=== PATIENT | female | born 1985 | race Caucasian/White ===

== ENCOUNTER 2019-04-22 08:17 | Emergency (ER) | payer OTHER ==
[~2019-04-22] VITALS: Ht 162.6 cm; Wt 52.2 kg
[2019-04-22] MEDS ORDERED: VNL75T (08:35)
[2019-04-22] MEDS ORDERED: DEXT20TA8 (08:35)
[2019-04-22] MEDS ORDERED: LACTATED RINGERS 1,000 ML IV ONE ×2 (08:44→09:42)
[2019-04-22] MEDS ORDERED: FAMOTIDINE 20MG/2ML IV (PEPCID) IVP ONE (08:45)
[2019-04-22] MEDS ORDERED: ONDANSETRON 4 MG/2 ML (SDV) Z0FRAN IVP ONE (08:45)
[2019-04-22 08:58] LABS: BASOPHILS % (AUTO) 0 % (0-10); EOSINOPHILS % (AUTO) 0 % (0-10); HEMATOCRIT 40 % (35-52); HEMOGLOBIN 13.4 G/DL (11.5-16.0); LYMPHOCYTES # (AUTO) 1.3 X 10^3 (1.0-4.0); LYMPHOCYTES % (AUTO) 27 % (12-44); MEAN CORPUSCULAR HEMOGLOBIN 31 PG (25-34); MEAN CORPUSCULAR HGB CONC 34 G/DL (32-36); MEAN CORPUSCULAR VOLUME 91 FL (80-99); MEAN PLATELET VOLUME 9.7 FL (7.4-10.4); MONOCYTES # (AUTO) 0.5 X 10^3 (0.0-1.0); MONOCYTES % (AUTO) 9 % (0-12); NEUTROPHILS # (AUTO) 3.2 X 10^3 (1.8-7.8); NEUTROPHILS % (AUTO) 64 % (42-75); PLATELET COUNT 356 10^3/uL (130-400); RED CELL DISTRIBUTION WIDTH 14.9 % (10.0-14.5)
--- NOTE | 2019-04-22 09:05 | ED Psychosocial ---
General Chief Complaint: Substance Abuse Stated Complaint: INTOXICATED, VOMITTING Nursing Triage Note: ARRIVED VIA AMB TO ROOM 06. STATES SHE AND HER BOYFRIEND HAVE BEEN [facility] SCH[facility] FOR A MONTH AND THINKS SHE MIGHT HAVE ALCOHOL POSIONING. THINKS SHE IS DEHYDRATED AND JUST DOES NOT FEEL RIGHT. WANTS DETOXED BUT NOT IN PLACEMENT. Source: patient, other (boyfriend) Exam Limitations: no limitations History of Present Illness Date Seen by Provider: Apr 22, 2019 Time Seen by Provider: 08:38 Initial Comments This 34-year-old woman presents to the emergency room along with her boyfriend with complaints related to alcohol consumption. Her primary complaint today is that she "feels foggy". She just "doesn't feel right". She has been drinking alcohol heavily on a daily basis for about one year. She states she and her boyfriend usually share one to 2 L of hard alcohol per day. Her last alcohol consumption was about 2 hours prior to arrival. She has some nausea but denies vomiting. She denies any pain at this time. Her most recent primary care provider was Gonzalo Skinner in [place], [place]. She denies any other substance abuse. She thinks she might be dehydrated. She is tachycardic on assessment. Allergies and Home Medications Allergies Coded Allergies: No Known Drug Allergies (Unverified , 04/22/19) Home Medications Lorazepam 1 Mg Tablet, 1 MG PO Q8H PRN for AGITATION Prescribed by: ELIE SHERIFF on 04/22/19 1140 Patient Home Medication List Home Medication List Reviewed: Yes Review of Systems Constitutional: no symptoms reported EENTM: no symptoms reported Respiratory: no symptoms reported Cardiovascular: see HPI Gastrointestinal: see HPI Genitourinary: no symptoms reported : No LMP: Apr 08, 2019 Control/STD Prophylaxis: None Musculoskeletal: no symptoms reported Skin: no symptoms reported Psychiatric/Neurological: See HPI Past [id number] Hx Past Med/Social Hx: Reviewed and Corrections made Patient Social History Alcohol Use: Regular Use Alcohol Beverage of Choice: Whiskey Recreational Drug Use: No Smoking Status: Current Everyday Smoker Recent Foreign Travel: No Contact w/Someone Who Travel: No Recent Infectious Disease Expo: No Recent Hopitalizations: No Past Medical History Surgeries: Yes (REVERSAL OF TUBAL) Tubal Ligation Respiratory: No Cardiac: No Neurological: No Genitourinary: No Gastrointestinal: No Musculoskeletal: No Endocrine: No HEENT: No Cancer: No Psychosocial: Yes (alcoholism) Depression Integumentary: No Physical Exam Vital Signs - First Documented 04/22/19 08:23 Temp 98.4 Pulse 138 Resp 16 B/P (MAP) 136/113 (121) Pulse Ox 99 O2 Delivery Room Air Capillary Refill : Less Than 3 Seconds Height, Weight, BMI Height: 5'4.00" Weight: 115lbs. oz. 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, no motor/sensory deficits, alert, oriented x 3, other (mildly anxious) Appearance/Memory: appropriate appearance, appropriate insight Behavior/Eye Contact: cooperative, good eye contact, normal speech Thoughts/Hallucinations: normal thought pattern Skin: normal color, warm/dry Progress/Results/Core Measures Results/Orders Lab Results Laboratory Tests Test 04/22/19 08:44 04/22/19 08:50 04/22/19 10:35 Range/Units Urine Color YELLOW Urine Clarity CLEAR Urine pH 7 5-9 Urine Specific [place] 1.015 L 1.016-1.022 Urine Protein NEGATIVE NEGATIVE Urine Glucose (UA) NEGATIVE NEGATIVE Urine Ketones 2+ H NEGATIVE Urine Nitrite NEGATIVE NEGATIVE Urine Bilirubin NEGATIVE NEGATIVE Urine Urobilinogen NORMAL NORMAL MG/DL Urine Leukocyte Esterase 1+ H NEGATIVE Urine RBC (Auto) NEGATIVE NEGATIVE Urine RBC NONE /HPF Urine WBC RARE /HPF Urine Squamous Epithelial Cells 2-5 /HPF Urine Crystals NONE /LPF Urine Bacteria FEW H /HPF Urine Casts NONE /LPF Urine Mucus NEGATIVE /LPF Urine Culture Indicated NO White Blood Count 5.0 4.3-11.0 10^3/uL Red Blood Count 4.34 L 4.35-5.85 10^6/uL Hemoglobin 13.4 11.5-16.0 G/DL Hematocrit 40 35-52 % Mean Corpuscular Volume 91 80-99 FL Mean Corpuscular Hemoglobin 31 25-34 PG Mean Corpuscular Hemoglobin Concent 34 32-36 G/DL Red Cell Distribution Width 14.9 H 10.0-14.5 % Platelet Count 356 130-400 10^3/uL Mean Platelet Volume 9.7 7.4-10.4 FL Neutrophils (%) (Auto) 64 42-75 % Lymphocytes (%) (Auto) 27 12-44 % Monocytes (%) (Auto) 9 0-12 % Eosinophils (%) (Auto) 0 0-10 % Basophils (%) (Auto) 0 0-10 % Neutrophils # (Auto) 3.2 1.8-7.8 X 10^3 Lymphocytes # (Auto) 1.3 1.0-4.0 X 10^3 Monocytes # (Auto) 0.5 0.0-1.0 X 10^3 Eosinophils # (Auto) 0.0 0.0-0.3 10^3/uL Basophils # (Auto) 0.0 0.0-0.1 10^3/uL Sodium Level 141 135-145 MMOL/L Potassium Level 3.8 3.6-5.0 MMOL/L Chloride Level 103 98-107 MMOL/L Carbon Dioxide Level 20 L 21-32 MMOL/L Anion Gap 18 H 5-14 MMOL/L Blood Urea Nitrogen 6 L 7-18 MG/DL Creatinine 0.77 0.60-1.30 MG/DL Estimat Glomerular Filtration Rate > 60 BUN/Creatinine Ratio 8 Glucose Level 99 70-105 MG/DL Calcium Level 9.1 8.5-10.1 MG/DL Corrected Calcium 8.8 8.5-10.1 MG/DL Magnesium Level 2.2 1.8-2.4 MG/DL Total Bilirubin 0.4 0.1-1.0 MG/DL Aspartate Amino Transf (AST/SGOT) 74 H 5-34 U/L Alanine Aminotransferase (ALT/SGPT) 27 0-55 U/L Alkaline Phosphatase 129 40-136 U/L Total Protein 8.1 6.4-8.2 GM/DL Albumin 4.4 3.2-4.5 GM/DL Lipase 26 8-78 U/L TSH [place] Testing 1.19 0.35-4.94 UIU/ML Serum Test, Qualitative NEGATIVE NEGATIVE Serum Alcohol 190 H <10 MG/DL Urine Opiates Screen NEGATIVE NEGATIVE Urine Oxycodone Screen NEGATIVE NEGATIVE Urine Methadone Screen NEGATIVE NEGATIVE Urine Propoxyphene Screen NEGATIVE NEGATIVE Urine Barbiturates Screen NEGATIVE NEGATIVE Ur Tricyclic Antidepressants Screen NEGATIVE NEGATIVE Urine Phencyclidine Screen NEGATIVE NEGATIVE Urine Amphetamines Screen NEGATIVE NEGATIVE Urine Methamphetamines Screen NEGATIVE NEGATIVE Urine Benzodiazepines Screen NEGATIVE NEGATIVE Urine Cocaine Screen NEGATIVE NEGATIVE Urine Cannabinoids Screen NEGATIVE NEGATIVE My Orders Orders - ELIE NAGEL MD Ed Iv/Invasive Line Start (04/22/19 08:44) Lactated Ringers (Lr 1000 Ml Iv Solution (04/22/19 08:44) Ondansetron Injection (Zofran Injectio (04/22/19 08:45) Famotidine Injection (Pepcid Injection) (04/22/19 08:45) Cbc With Automated Diff (04/22/19 08:44) Comprehensive Metabolic Panel (04/22/19 08:44) Drug Screen Stat (Urine) (04/22/19 08:44) Hcg,Qualitative Serum (04/22/19 08:44) Lipase (04/22/19 08:44) Magnesium (04/22/19 08:44) Thyroid Analyzer (04/22/19 08:44) Ua Culture If Indicated (04/22/19 08:44) Alcohol (04/22/19 09:41) Ed Iv/Invasive Line Start (04/22/19 09:42) Lactated Ringers (Lr 1000 Ml Iv Solution (04/22/19 09:42) Lorazepam Tablet (Ativan Tablet) (04/22/19 11:36) Medications Given in ED Vital Signs/I&O Blood Pressure Mean: 121 Progress Progress Note #1: Time: 09:04 Progress Note Patient was seen and examined. Labs have been ordered. She will be treated with IV fluids, Zofran, and Pepcid. Disposition will be pending lab results. Progress Note #2: Progress Note Workup was relatively unremarkable. Patient received 2 L of LR but was still mildly tachycardic. She may be starting to withdraw. She was given a milligram of Ativan orally before discharge and a prescription for a few Ativan to help manage withdrawal symptoms as she intends to abstain from alcohol through the weekend and enroll in a rehabilitation program next week. She was dismissed into the care of a family friend. Departure Impression Primary Impression: Hypovolemia Additional Impressions: Alcoholism Nausea Disposition: 01 HOME, SELF-CARE Condition: Improved Departure-Patient Inst. Decision time for Depature: 11:36 Referrals: NO,LOCAL PHYSICIAN (PCP/Family) Primary Care Physician Patient Instructions: ALCOHOL AND SUBSTANCE ABUSE, Alcohol Withdrawal Add. Discharge Instructions: Drink plenty of clear liquids and eat a well-balanced diet. Avoid abruptly stopping alcohol consumption unless you are managing potential withdrawal with medications or otherwise under a doctor supervision. You may use the Ativan as prescribed for alcohol withdrawal symptoms and to prevent withdrawal seizure. Withdrawal symptoms include agitation, high heart rate, high blood pressure, tremors, and hallucinations. If you develop these symptoms and they are not responsive to the Ativan provided, please return to the emergency room. You may also return to the emergency room for any other problems or complications. Follow-up with your primary care provider soon as possible. All discharge instructions reviewed with patient and/or family. Voiced understanding. Scripts Lorazepam (Ativan) 1 Mg Tablet 1 MG PO Q8H PRN for AGITATION, #6 TAB Prov: ELIE NAGEL MD 04/22/19 ELIE NAGEL MD Apr 22, 2019 09:05
[2019-04-22 09:17] LABS: ALANINE AMINOTRANSFERASE 27 U/L (0-55); ALBUMIN 4.4 GM/DL (3.2-4.5); ALKALINE PHOSPHATASE 129 U/L (40-136); BILIRUBIN,TOTAL 0.4 MG/DL (0.1-1.0); BUN/CREATININE RATIO 8; CALCIUM 9.1 MG/DL (8.5-10.1); CARBON DIOXIDE 20 MMOL/L (21-32); CHLORIDE 103 MMOL/L (98-107); CREATININE SERUM 0.77 MG/DL (0.60-1.30); GFR ESTIMATED > 60; GLUCOSE 99 MG/DL (70-105); LIPASE 26 U/L (8-78); MAGNESIUM 2.2 MG/DL (1.8-2.4); POTASSIUM 3.8 MMOL/L (3.6-5.0); SODIUM 141 MMOL/L (135-145); TOTAL PROTEIN 8.1 GM/DL (6.4-8.2)
[2019-04-22 09:36] LABS: TSH (THYROID ANALYZER) 1.19 UIU/ML (0.35-4.94)
--- NOTE | 2019-04-22 09:44 | NUR ---
IN TALKING TO PT AT THIS TIME.
--- NOTE | 2019-04-22 09:48 | NUR ---
UP TO THE BATHROOM.
--- OUTSIDE RECORDS SUMMARY | 2019-04-22 10:29 | XMS REPORT | Referral Summary ---
Author Author [facility] Organization [facility] Address Unknown Phone Unavailable Encounter VC NGUYEN [id number] Date(s): 09/10/17 - 09/10/17 [facility] [address] [place], [place] [address] [facility] Discharge Diagnosis: Constipation Discharge Diagnosis: Positive hepatitis C antibody test Discharge Disposition: 01-Home or Self Care Attending Physician: Gladys Dangelo III, MD Admitting Physician: Gladys Dangelo III, MD Vital Signs Most recent to 1 oldest [Reference Range]: Apical Heart Rate 70 bpm [60-100 bpm] (09/10/17 3:44 PM) Blood Pressure 122/84 mmHg [90-140/60-90 mmHg] (09/10/17 3:44 PM) Problem List Condition Effective Dates Status Health Status Informant Constipation(Confirm Active ed) Positive hepatitis C Active antibody test(Confirmed) Allergies, Adverse Reactions, Alerts No data available for this section Medications Suboxone SubLingual, Daily, 0 Refill(s) Start Date: 09/10/17 Status: Ordered traZODone 100 mg oral tablet mg tabs, Oral, Bedtime (once a day), 0 Refill(s) Start Date: 09/10/17 Status: Ordered venlafaxine 75 mg oral tablet 75 mg 1 tabs, Oral, BID, # 180 tabs, 0 Refill(s) Start Date: 09/10/17 Status: Ordered Results No data available for this section Immunizations No data available for this section Procedures No data available for this section Social History Social History Type Response Smoking Status Former smoker; Type: Cigarettes entered on: 09/10/17 Assessment and Plan No data available for this section
--- OUTSIDE RECORDS SUMMARY | 2019-04-22 10:29 | XMS REPORT | Clinical Summary ---
Author Author Admin, E Organization [employer] Address Unknown Phone Unavailable Allergies, Adverse Reactions, Alerts Allergy Name Reaction Description Start Date Severity Status Provider No Known Allergies Colleen BORDEN Conditions or Problems Problem Name Problem Code Onset Date Status Entry Date Provider Comment Standard Description Annotate DEPRESSION 311 Resolved Cayetano Skinner MD Depressive disorder, not elsewhere classified History of CERVICAL CANCER V10.41 Inactive Cayetano Skinner MD Personal history of malignant neoplasm of cervix uteri FH COLON CANCER V16.0 Resolved Cayetano Skinner MD Family history of malignant neoplasm of gastrointestinal tract INGUINAL LYMPHADENOPATHY, LEFT 785.6 Resolved Cayetano Skinner MD Enlargement of lymph nodes History of ABNORMAL PAP SMEAR V13.29 Inactive Cayetano Skinner MD Personal history of other genital system and obstetric disorders VAGINAL DISCHARGE 623.5 Resolved Cayetano Skinner MD Leukorrhea, not specified as infective Routine gynecological examination V72.31 Active Cayetano Skinner MD Routine gynecological examination Rule out DRUG ABUSE Resolved Cayetano Skinner MD Other, mixed, or unspecified drug abuse, unspecified use PHARYNGITIS 462 Resolved Cayetano Skinner MD Acute pharyngitis Dysuria 788.1 Resolved Cayetano Skinner MD Dysuria Sinusitis, acute 461.9 Resolved Cayetano Skinner MD Acute sinusitis, unspecified Pre-employment exam V70.5 Resolved Cayetano Skinner MD Health examination of defined subpopulations U T I-Recurrent Active Kimberly Brown MD Urinary tract infection, site not specified Depression 311 Active Cayetano Skinner MD Depressive disorder, not elsewhere classified Pruritus 698.9 Resolved Cayetano Skinner MD Unspecified pruritic disorder Urticaria 708.9 Resolved Cayetano Skinner MD Unspecified urticaria Hepatitis C 070.70 Resolved Cayetano Skinner MD Unspecified viral hepatitis C without hepatic coma Muscle spasm of neck 728.85 Inactive Melinda Baxter DERMATOPATHOLOGIST Spasm of muscle BMI 20-20.9 Active Alfa Young MD Body Mass Index between 19-24, adult Contusion of left knee, initial encounter 924.11 Inactive Alfa Young MD Contusion of knee Knee pain, left, acute 719.46 Active Cayetano Skinner MD Pain in joint involving lower leg DEPRESSION ICD-311 Inactive Cayetano Skinner MD CERVICAL CANCER ICD-V10.41 Inactive Cayetano Skinner MD FH COLON CANCER ICD-V16.0 Inactive Cayetano Skinner MD INGUINAL LYMPHADENOPATHY, LEFT ICD-785.6 Inactive Cayetano Skinner MD ABNORMAL PAP SMEAR ICD-V13.29 Inactive Cayetano Skinner MD VAGINAL DISCHARGE ICD-623.5 Inactive Cayetano Skinner MD DRUG ABUSE ICD-305.90 Inactive Cayetano Skinner MD PHARYNGITIS ICD-462 Inactive Cayetano Skinner MD Dysuria ICD-788.1 Inactive Cayetano Skinner MD Sinusitis, acute ICD-461.9 Inactive Cayetano Skinner MD Pre-employment exam ICD-V70.5 Inactive Cayetano Skinner MD Pruritus ICD-698.9 Inactive Cayetano Skinner MD Urticaria ICD-708.9 Inactive Cayetano Skinner MD Hepatitis C ICD-070.70 Inactive Cayetano Skinner MD Muscle spasm of neck ICD-728.85 Inactive Melinda Yokum DERMATOPATHOLOGIST Medication List Medication Instructions Start Date Stop Date Generic Name NDC Status Provider Patient Instruction TRAMADOL HCL 50 MG ORAL TABLET take 1 tab po q6hrs prn pain TRAMADOL HCL 22043515139 Active Alfa Young MD Active CYCLOBENZAPRINE HCL 10 MG ORAL TABLET Take 1 tablet up to 3 times a day as needed for muscle spasms. CYCLOBENZAPRINE HCL 96852303478 No Longer Active Alfa Young MD Active SUBOXONE 8-2 MG SUBLINGUAL FILM 1 1/2 STRIPS QD BUPRENORPHINE HCL-NALOXONE HCL 49516103589 No Longer Active Melinda Yokum DERMATOPATHOLOGIST Active TRAZODONE HCL 100 MG ORAL TABLET 0.5 to 1 po qHS PRN Insomnia TRAZODONE HCL 14175205285 No Longer Active Melinda Yokum DERMATOPATHOLOGIST Active PREDNISONE 20 MG ORAL TABLET 2 tabs daily for 4 days, 1 tab daily for 4 days, 1/2 tab daily for 4 days PREDNISONE 05421639194 No Longer Active Melinda Yokum DERMATOPATHOLOGIST Active ZYRTEC ALLERGY 10 MG ORAL CAPSULE 1 po am CETIRIZINE HCL 52113390985 No Longer Active Melinda Yokum DERMATOPATHOLOGIST Active ZANTAC 150 MG ORAL TABLET 1 tab po q am RANITIDINE HCL 72526153536 No Longer Active Melinda Yokum DERMATOPATHOLOGIST Active TAMIFLU 75 MG ORAL CAPSULE 1 cap PO bid x 5 days OSELTAMIVIR PHOSPHATE 12543098308 No Longer Active Luna Wade DERMATOPATHOLOGIST Active LUNESTA 1 MG ORAL TABLET 1 po qHS PRN Insomnia ESZOPICLONE 48964509035 No Longer Active Joanne Auguste RMA Active VENLAFAXINE HCL 75 MG ORAL TABLET 1.5 po BID VENLAFAXINE HCL 25382678324 Active Cayetano Skinner MD Active TRAZODONE HCL 100 MG ORAL TABLET 0.5 to 1 po qHS PRN Insomnia TRAZODONE HCL 91473850342 No Longer Active Cayetano Skinner MD Active SERTRALINE HCL 100 MG ORAL TABLET 2 po qd SERTRALINE HCL 27230787648 No Longer Active Cayetano Skinner MD Active MACROBID CAPSULE 1 cap po qd. NITROFURANTOIN MONOHYD MACRO CAPS 36417519476 No Longer Active Kimberly Brown MD Active CIPRO 500 MG ORAL TABLET 1 tablet by mouth twice daily CIPROFLOXACIN HCL 30827651974 No Longer Active Cayetano Skinner MD Active MACROBID 100 MG ORAL CAPSULE Take one by mouth daily NITROFURANTOIN MONOHYD MACRO 80484682259 No Longer Active Kimberly Brown MD Active SUBOXONE 8-2 MG SUBL 2 po qd BUPRENORPHINE HCL-NALOXONE HCL 59520576165 No Longer Active Kimberly Brown MD Active HYDROCORTISONE 2.5 % EXTERNAL CREAM Apply three times a day to affected area HYDROCORTISONE 16149363222 No Longer Active Kimberly Brown MD Active AUGMENTIN 500-125 MG ORAL TABLET Take 1 capsule by mouth three times a day X 10 days AMOXICILLIN-POT CLAVULANATE 92579753276 No Longer Active Connie Reyes APRN Active BACTRIM DS 800-160 MG ORAL TABLET 1 tab by mouth twice daily TRIMETHOPRIM-SULFAMETHOXAZOLE 32965293469 No Longer Active Cayetano Skinenr MD Active ZITHROMAX Z-MARTI 250 MG ORAL TABLET 2 today, then 1 daily for 4 days AZITHROMYCIN 23796088969 No Longer Active Jensen Santiago MD Active CETIRIZINE HCL 10 MG ORAL TABLET ONE DAILY CETIRIZINE HCL 63663153396 No Longer Active Jensen Santiago MD Active KLONOPIN 1 MG ORAL TABLET 1/2 tab bid CLONAZEPAM 38332907423 No Longer Active Jensen Santiago MD Active ZOLPIDEM TARTRATE 10 MG ORAL TABLET 1 q hs as needed for sleep ZOLPIDEM TARTRATE 62280004506 No Longer Active Jensen Santiago MD Active CELEXA 40 MG ORAL TABLET Take one by mouth daily CITALOPRAM HYDROBROMIDE 98120864603 No Longer Active Jensen Santiago MD Active AMOXICILLIN 875 MG ORAL TABLET 1 tab by mouth twice daily AMOXICILLIN 48770304242 No Longer Active Cayetano Skinner MD Active FLAGYL 500 MG ORAL TABLET 1 tablet by mouth two times daily METRONIDAZOLE 65064580683 No Longer Active Cayetano Skinner MD Active FLAGYL 500 MG ORAL TABLET 1 tablet by mouth two times daily METRONIDAZOLE 86984745991 No Longer Active Cayetano Skinner MD Active BUSPIRONE HCL 15 MG ORAL TABLET 1/2 PO BID BUSPIRONE HCL 07310849082 No Longer Active Cayetano Skinner MD Active BUSPIRONE HCL 15 MG ORAL TABLET 1/2 PO BID BUSPIRONE HCL 15 MG ORAL TABLET 331511 BUSPIRONE HCL Inactive CELEXA 40 MG ORAL TABLET Take one by mouth daily CELEXA 40 MG ORAL TABLET 887314 CITALOPRAM HYDROBROMIDE Inactive ZOLPIDEM TARTRATE 10 MG ORAL TABLET 1 q hs as needed for sleep ZOLPIDEM TARTRATE 10 MG ORAL TABLET 658724 ZOLPIDEM TARTRATE Inactive KLONOPIN 1 MG ORAL TABLET 1/2 tab bid KLONOPIN 1 MG ORAL TABLET 864288 CLONAZEPAM Inactive CETIRIZINE HCL 10 MG ORAL TABLET ONE DAILY CETIRIZINE HCL 10 MG ORAL TABLET 4802975 CETIRIZINE HCL Inactive HYDROCORTISONE 2.5 % EXTERNAL CREAM Apply three times a day to affected area HYDROCORTISONE 2.5 % EXTERNAL CREAM 409810 HYDROCORTISONE Inactive SUBOXONE 8-2 MG SUBL 2 po qd SUBOXONE 8-2 MG SUBL BUPRENORPHINE HCL-NALOXONE HCL Inactive CIPRO 500 MG ORAL TABLET 1 tablet by mouth twice daily CIPRO 500 MG ORAL TABLET 392065 CIPROFLOXACIN HCL Inactive MACROBID CAPSULE 1 cap po qd. MACROBID CAPSULE NITROFURANTOIN MONOHYD MACRO CAPS Inactive LUNESTA 1 MG ORAL TABLET 1 po qHS PRN Insomnia LUNESTA 1 MG ORAL TABLET 502310 ESZOPICLONE Inactive ZANTAC 150 MG ORAL TABLET 1 tab po q am ZANTAC 150 MG ORAL TABLET 129919 RANITIDINE HCL Inactive ZYRTEC ALLERGY 10 MG ORAL CAPSULE 1 po am ZYRTEC ALLERGY 10 MG ORAL CAPSULE CETIRIZINE HCL Inactive PREDNISONE 20 MG ORAL TABLET 2 tabs daily for 4 days, 1 tab daily for 4 days, 1/2 tab daily for 4 days PREDNISONE 20 MG ORAL TABLET 325141 PREDNISONE Inactive TRAZODONE HCL 100 MG ORAL TABLET 0.5 to 1 po qHS PRN Insomnia TRAZODONE HCL 100 MG ORAL TABLET 876904 TRAZODONE HCL Inactive SUBOXONE 8-2 MG SUBLINGUAL FILM 1 1/2 STRIPS QD SUBOXONE 8-2 MG SUBLINGUAL FILM 3245989 BUPRENORPHINE HCL-NALOXONE HCL Inactive CYCLOBENZAPRINE HCL 10 MG ORAL TABLET Take 1 tablet up to 3 times a day as needed for muscle spasms. CYCLOBENZAPRINE HCL 10 MG ORAL TABLET 394401 CYCLOBENZAPRINE HCL Inactive FLAGYL 500 MG ORAL TABLET 1 tablet by mouth two times daily FLAGYL 500 MG ORAL TABLET 528573 METRONIDAZOLE Inactive FLAGYL 500 MG ORAL TABLET 1 tablet by mouth two times daily FLAGYL 500 MG ORAL TABLET 070938 METRONIDAZOLE Inactive AMOXICILLIN 875 MG ORAL TABLET 1 tab by mouth twice daily AMOXICILLIN 875 MG ORAL TABLET 814499 AMOXICILLIN Inactive ZITHROMAX Z-MARTI 250 MG ORAL TABLET 2 today, then 1 daily for 4 days ZITHROMAX Z-MARTI 250 MG ORAL TABLET 238266 AZITHROMYCIN Inactive BACTRIM DS 800-160 MG ORAL TABLET 1 tab by mouth twice daily BACTRIM DS 800-160 MG ORAL TABLET 030686 TRIMETHOPRIM-SULFAMETHOXAZOLE Inactive AUGMENTIN 500-125 MG ORAL TABLET Take 1 capsule by mouth three times a day X 10 days AUGMENTIN 500-125 MG ORAL TABLET 037670 AMOXICILLIN- POT CLAVULANATE Inactive MACROBID 100 MG ORAL CAPSULE Take one by mouth daily MACROBID 100 MG ORAL CAPSULE 1070834 NITROFURANTOIN MONOHYD MACRO Inactive TAMIFLU 75 MG ORAL CAPSULE 1 cap PO bid x 5 days TAMIFLU 75 MG ORAL CAPSULE 536185 OSELTAMIVIR PHOSPHATE Inactive Immunizations Vaccine Administration Date Value Standard Description Seasonal influenza vaccine, injectable, containing preservative, for > 3 years old (Afluria, FluLaval, Fluzone, Fluvirin, Fluarix, Agriflu(>=18 yo)) Fluzone (>3 yrs.) [[id number]] Influenza, seasonal, injectable Vital Signs Date Name Value Unit Range Description blood pressure, diastolic 96 mm[Hg] BP montejo blood pressure, systolic 150 mm[Hg] BP sys height E&M 65 [in_us] Bdy height pulse rate E&M 113 /min Heart rate temperature E&M 98.1 [degF] Body temperature weight E&M 122.50 [lb_av] Weight Measured blood pressure, diastolic 90 mm[Hg] BP montejo blood pressure, systolic 130 mm[Hg] BP sys height E&M 65 [in_us] Bdy height pulse rate E&M 138 /min Heart rate temperature E&M 96.7 [degF] Body temperature weight E&M 125 [lb_av] Weight Measured blood pressure, diastolic, repeated by physician 98 BP montejo blood pressure, diastolic 98 mm[Hg] BP montejo blood pressure, systolic, repeated by physician 135 BP sys blood pressure, systolic 135 mm[Hg] BP sys height E&M 65 [in_us] Bdy height pulse rate E&M 87 /min Heart rate temperature E&M 97.8 [degF] Body temperature weight E&M 115.31 [lb_av] Weight Measured Encounters Code Encounter Date Provider Facility CPT-46940 Level 3 Est. Patient 14:42:39 [employer]ORT[employer] Cayetano Skinner MD [facility] CPT-43864 Level 3 Est. Patient 20:19:49 [employer]SPORTATION BR[employer]ER Alfa Young MD [facility] CPT-48477 Level 3 Est. Patient 13:56:06 CDT Melinda Baxter [facility] CPT-80651 Level 4 Est. Patient 22:21:42 CDT Dorothy Dovel [facility] CPT-52370 Level 4 Est. Patient 21:18:20 CDT Fadiaina Derrelll [facility] CPT-03541 Level 3 Est. Patient 10:06:58 CDT Dorothy Dovel [facility] CPT-18471 Level 3 Est. Patient 09:36:26 CDT Dorothy Ayala [facility] CPT-33926 Level 3 Est. Patient 16:55:26 CDT Cayetano Skinner MD [facility] CPT-25396 Level 2 Est. Patient 11:28:42 CDT Kimberly Brown MD [facility] CPT-21110 Level 3 Est. Patient 15:04:35 CDT Cayetano Skinner MD [facility] CPT-19364 Level 3 Est. Patient 15:07:05 [employer]SPORTATION BR[employer]ER Cayetano Skinner MD [facility] CPT-01370 Level 3 Est. Patient 09:56:19 CDT Connie Reyes JOY [facility] CPT-30429 Level 3 Est. Patient 12:31:18 TRANSPORTATION BROKER Jensen Santiago MD [facility] CPT-66836 Level 3 Est. Patient 10:35:02 [employer]SPORTATION BROKER Cayetano Skinner MD [facility] CPT-01382 Level 3 Est. Patient 12:50:08 [employer]SPORTATION BROKER Cayetano Skinner MD [facility] Procedures Code Procedure Name Date Entry Date Standard Description CPT-23075 Abx/Therapy Injection 09:57:17 CDT CPT-J1885 Toradol 30 mg (Ketorolac) 09:49:34 CDT CPT-48931 Venipuncture Draw Fee 10:10:37 CDT CPT-16942 [facility] 10:06:58 CDT CPT-29885 Bladder Scan 19:49:06 [employer]SPORTATION BR[employer]ER CPT-66246 Spec Collection and Handling Fee 11:57:40 CDT CPT-J1020 Depo Medrol 60 mg (Methyl Prednisolone Acetate) 12:03:49 CDT CPT-06116 Abx/Therapy Injection 12:03:48 CDT CPT-J1020 Depo Medrol 60 mg (Methyl Prednisolone Acetate) 09:56:19 CDT CPT-01021 Spec Collection and Handling Fee 12:10:42 CDT CPT-PV Prev. Care Visit 12:10:42 CDT CPT-99025 Administration single or combination vaccine inc oral 16:45:52 [employer]SPORTATION BROKER CPT-80150 Influenza split virus > age 3 16:45:52 [employer]SPORTATION BROKER CPT-74795 Spec Collection and Handling Fee 10:35:02 TRANSPORTATION BROKER
--- OUTSIDE RECORDS SUMMARY | 2019-04-22 10:30 | XMS REPORT | Clinical Summary ---
Author Author Admin, [place] Organization [employer] Address Unknown Phone Unavailable Allergies, Adverse Reactions, [...] spasm of neck 728.85 Inactive Melinda Baxter [employer] Spasm of muscle BMI 20-20.9 Active Alfa [...] spasm of neck ICD-728.85 Inactive Melinda Yokum [employer] Medication List Medication Instructions Start Date Stop Date Generic Name NDC Status Provider Patient Instruction TRAMADOL HCL 50 MG ORAL TABLET take 1 tab po q6hrs prn pain TRAMADOL HCL 55921679067 Active Alfa Young MD Active CYCLOBENZAPRINE HCL 10 MG ORAL TABLET Take 1 tablet up to 3 times a day as needed for muscle spasms. CYCLOBENZAPRINE HCL 95222414485 No Longer Active Alfa Young MD Active SUBOXONE 8-2 MG SUBLINGUAL FILM 1 1/2 STRIPS QD BUPRENORPHINE HCL-NALOXONE HCL 40765111463 No Longer Active Melinda Yokum [employer] Active TRAZODONE HCL 100 MG ORAL TABLET 0.5 to 1 po qHS PRN Insomnia TRAZODONE HCL 15253289563 No Longer Active Melinda Yokum [employer] Active PREDNISONE 20 MG ORAL TABLET 2 tabs daily for 4 days, 1 tab daily for 4 days, 1/2 tab daily for 4 days PREDNISONE 19569364240 No Longer Active Melinda Yokum [employer] Active ZYRTEC ALLERGY 10 MG ORAL CAPSULE 1 po am CETIRIZINE HCL 19875490969 No Longer Active Melinda Yokum [employer] Active ZANTAC 150 MG ORAL TABLET 1 tab po q am RANITIDINE HCL 34223208650 No Longer Active Melinda Yokum [employer] Active TAMIFLU 75 MG ORAL CAPSULE 1 cap PO bid x 5 days OSELTAMIVIR PHOSPHATE 65430336117 No Longer Active Luna Wade APRN Active LUNESTA 1 MG ORAL TABLET 1 po qHS PRN Insomnia ESZOPICLONE 87735148919 No Longer Active Joanne Auguste RMA Active VENLAFAXINE HCL 75 MG ORAL TABLET 1.5 po BID VENLAFAXINE HCL 78160477690 Active Cayetano Skinner MD Active TRAZODONE HCL 100 MG ORAL TABLET 0.5 to 1 po qHS PRN Insomnia TRAZODONE HCL 39038909395 No Longer Active Cayetano Skinner MD Active SERTRALINE HCL 100 MG ORAL TABLET 2 po qd SERTRALINE HCL 49827113551 No Longer Active Cayetano Skinner MD Active MACROBID CAPSULE 1 cap po qd. NITROFURANTOIN MONOHYD MACRO CAPS 75282560237 No Longer Active Kimberly Brown MD Active CIPRO 500 MG ORAL TABLET 1 tablet by mouth twice daily CIPROFLOXACIN HCL 04487851154 No Longer Active Cayetano Skinner MD Active MACROBID 100 MG ORAL CAPSULE Take one by mouth daily NITROFURANTOIN MONOHYD MACRO 71173427521 No Longer Active Kimberly Brown MD Active SUBOXONE 8-2 MG SUBL 2 po qd BUPRENORPHINE HCL-NALOXONE HCL 17208440433 No Longer Active Kimberly Brown MD Active HYDROCORTISONE 2.5 % EXTERNAL CREAM Apply three times a day to affected area HYDROCORTISONE 90346459133 No Longer Active Kimberly Brown MD Active AUGMENTIN 500-125 MG ORAL TABLET Take 1 capsule by mouth three times a day X 10 days AMOXICILLIN-POT CLAVULANATE 29884234665 No Longer Active Connie Reyes APRN Active BACTRIM DS 800-160 MG ORAL TABLET 1 tab by mouth twice daily TRIMETHOPRIM-SULFAMETHOXAZOLE 60690090495 No Longer Active Cayetano Skinner MD Active ZITHROMAX Z-MARTI 250 MG ORAL TABLET 2 today, then 1 daily for 4 days AZITHROMYCIN 75441881064 No Longer Active Jensen Santiago MD Active CETIRIZINE HCL 10 MG ORAL TABLET ONE DAILY CETIRIZINE HCL 23690152116 No Longer Active Jensen Santiago MD Active KLONOPIN 1 MG ORAL TABLET 1/2 tab bid CLONAZEPAM 92818521148 No Longer Active Jensen Santiago MD Active ZOLPIDEM TARTRATE 10 MG ORAL TABLET 1 q hs as needed for sleep ZOLPIDEM TARTRATE 83648096625 No Longer Active Jensen Santiago MD Active CELEXA 40 MG ORAL TABLET Take one by mouth daily CITALOPRAM HYDROBROMIDE 00658045306 No Longer Active Jensen Santiago MD Active AMOXICILLIN 875 MG ORAL TABLET 1 tab by mouth twice daily AMOXICILLIN 25036125850 No Longer Active Cayetano Skinner MD Active FLAGYL 500 MG ORAL TABLET 1 tablet by mouth two times daily METRONIDAZOLE 24634287986 No Longer Active Cayetano Skinner MD Active FLAGYL 500 MG ORAL TABLET 1 tablet by mouth two times daily METRONIDAZOLE 55545212559 No Longer Active Cayetano Skinner MD Active BUSPIRONE HCL 15 MG ORAL TABLET 1/2 PO BID BUSPIRONE HCL 52011946875 No Longer Active Cayetano Skinner MD Active BUSPIRONE HCL 15 MG ORAL TABLET 1/2 PO BID BUSPIRONE HCL 15 MG ORAL TABLET 061657 BUSPIRONE HCL Inactive CELEXA 40 MG ORAL TABLET Take one by mouth daily CELEXA 40 MG ORAL TABLET 407274 CITALOPRAM HYDROBROMIDE Inactive ZOLPIDEM TARTRATE 10 MG ORAL TABLET 1 q hs as needed for sleep ZOLPIDEM TARTRATE 10 MG ORAL TABLET 233351 ZOLPIDEM TARTRATE Inactive KLONOPIN 1 MG ORAL TABLET 1/2 tab bid KLONOPIN 1 MG ORAL TABLET 843451 CLONAZEPAM Inactive CETIRIZINE HCL 10 MG ORAL TABLET ONE DAILY CETIRIZINE HCL 10 MG ORAL TABLET 8439745 CETIRIZINE HCL Inactive HYDROCORTISONE 2.5 % EXTERNAL CREAM Apply three times a day to affected area HYDROCORTISONE 2.5 % EXTERNAL CREAM 710182 HYDROCORTISONE Inactive SUBOXONE 8-2 MG SUBL 2 po qd SUBOXONE 8-2 MG SUBL BUPRENORPHINE HCL-NALOXONE HCL Inactive CIPRO 500 MG ORAL TABLET 1 tablet by mouth twice daily CIPRO 500 MG ORAL TABLET 054092 CIPROFLOXACIN HCL Inactive MACROBID CAPSULE 1 cap po qd. MACROBID CAPSULE NITROFURANTOIN MONOHYD MACRO CAPS Inactive LUNESTA 1 MG ORAL TABLET 1 po qHS PRN Insomnia LUNESTA 1 MG ORAL TABLET 969991 ESZOPICLONE Inactive ZANTAC 150 MG ORAL TABLET 1 tab po q am ZANTAC 150 MG ORAL TABLET 418026 RANITIDINE HCL Inactive ZYRTEC ALLERGY 10 MG ORAL CAPSULE 1 po am ZYRTEC ALLERGY 10 MG ORAL CAPSULE CETIRIZINE HCL Inactive PREDNISONE 20 MG ORAL TABLET 2 tabs daily for 4 days, 1 tab daily for 4 days, 1/2 tab daily for 4 days PREDNISONE 20 MG ORAL TABLET 742810 PREDNISONE Inactive TRAZODONE HCL 100 MG ORAL TABLET 0.5 to 1 po qHS PRN Insomnia TRAZODONE HCL 100 MG ORAL TABLET 344944 TRAZODONE HCL Inactive SUBOXONE 8-2 MG SUBLINGUAL FILM 1 1/2 STRIPS QD SUBOXONE 8-2 MG SUBLINGUAL FILM BUPRENORPHINE HCL-NALOXONE HCL Inactive CYCLOBENZAPRINE HCL 10 MG ORAL TABLET Take 1 tablet up to 3 times a day as needed for muscle spasms. CYCLOBENZAPRINE HCL 10 MG ORAL TABLET 767966 CYCLOBENZAPRINE HCL Inactive FLAGYL 500 MG ORAL TABLET 1 tablet by mouth two times daily FLAGYL 500 MG ORAL TABLET 702393 METRONIDAZOLE Inactive FLAGYL 500 MG ORAL TABLET 1 tablet by mouth two times daily FLAGYL 500 MG ORAL TABLET 768261 METRONIDAZOLE Inactive AMOXICILLIN 875 MG ORAL TABLET 1 tab by mouth twice daily AMOXICILLIN 875 MG ORAL TABLET 864128 AMOXICILLIN Inactive ZITHROMAX Z-MARTI 250 MG ORAL TABLET 2 today, then 1 daily for 4 days ZITHROMAX Z-MARTI 250 MG ORAL TABLET 975262 AZITHROMYCIN Inactive BACTRIM DS 800-160 MG ORAL TABLET 1 tab by mouth twice daily BACTRIM DS 800-160 MG ORAL TABLET 861885 TRIMETHOPRIM-SULFAMETHOXAZOLE Inactive AUGMENTIN 500-125 MG ORAL TABLET Take 1 capsule by mouth three times a day X 10 days AUGMENTIN 500-125 MG ORAL TABLET 905585 AMOXICILLIN- POT CLAVULANATE Inactive MACROBID 100 MG ORAL CAPSULE Take one by mouth daily MACROBID 100 MG ORAL CAPSULE 6494300 NITROFURANTOIN MONOHYD MACRO Inactive TAMIFLU 75 MG ORAL CAPSULE 1 cap PO bid x 5 days TAMIFLU 75 MG ORAL CAPSULE 760967 OSELTAMIVIR PHOSPHATE Inactive Immunizations Vaccine Administration Date Value Standard Description Seasonal influenza vaccine, injectable, containing preservative, for > 3 years old (Afluria, FluLaval, Fluzone, Fluvirin, Fluarix, Agriflu(>=18 yo)) Fluzone (>3 yrs.) [[id number]] Influenza, seasonal, injectable Vital Signs Date Name [...] Measured Encounters Code Encounter Date Provider Facility CPT-04754 Level 3 Est. Patient 14:42:39 [employer] Cayetano Skinner MD [facility] CPT-20928 Level 3 Est. Patient 20:19:49 [employer] Alfa Young MD [facility] CPT-05529 Level 3 Est. Patient 13:56:06 CDT Melinda Baxter [facility] CPT-00626 Level 4 Est. Patient 22:21:42 CDT Dorothy Dovel [facility] CPT-89469 Level 4 Est. Patient 21:18:20 CDT Fadiaina Derrelll [facility] CPT-02623 Level 3 Est. Patient 10:06:58 CDT Dorothy Scottzell [facility] CPT-66159 Level 3 Est. Patient 09:36:26 CDT Dorothy Dovel [facility] CPT-38092 Level 3 Est. Patient 16:55:26 CDT Cayetano Skinner MD [facility] CPT-25194 Level 2 Est. Patient 11:28:42 CDT Kimberly Brown MD [facility]-64707 Level 3 Est. Patient 15:04:35 CDT Cayetano Skinner MD [facility] CPT-20081 Level 3 Est. Patient 15:07:05 [employer] Cayetano Skinner MD [facility] CPT-40598 Level 3 Est. Patient 09:56:19 CDT Connie Reyes JOY [facility] CPT-43771 Level 3 Est. Patient 12:31:18 [employer] Jensen Santiago MD [facility] CPT-56509 Level 3 Est. Patient 10:35:02 [employer] Cayetano Skinner MD [facility] CPT-94885 Level 3 Est. Patient 12:50:08 [employer] Cayetano Skinner MD [facility] Procedures Code Procedure Name Date Entry Date Standard Description CPT-67737 Abx/Therapy Injection 09:57:17 CDT CPT-J1885 Toradol 30 mg (Ketorolac) 09:49:34 CDT CPT-29320 Venipuncture Draw Fee 10:10:37 CDT CPT-61748 [facility] 10:06:58 CDT CPT-44816 Bladder Scan 19:49:06 [employer] CPT-94997 Spec Collection and Handling Fee 11:57:40 CDT CPT-J1020 Depo Medrol 60 mg (Methyl Prednisolone Acetate) 12:03:49 CDT CPT-34592 Abx/Therapy Injection 12:03:48 CDT CPT-J1020 Depo Medrol 60 mg (Methyl Prednisolone Acetate) 09:56:19 CDT CPT-55461 Spec Collection and Handling Fee 12:10:42 CDT CPT-PV Prev. Care Visit 12:10:42 CDT CPT-29571 Administration single or combination vaccine inc oral 16:45:52 [employer] CPT-79983 Influenza split virus > age 3 16:45:52 [employer] CPT-06805 Spec Collection and Handling Fee 10:35:02 [employer]
--- OUTSIDE RECORDS SUMMARY | 2019-04-22 10:31 | XMS REPORT | Clinical Summary ---
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 TRAZODONE HCL 100 MG ORAL TABLET 0.5 to 1 po qHS PRN Insomnia TRAZODONE HCL 36917800160 No Longer Active Melinda Yokum 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 PREDNISONE 20 MG ORAL TABLET 2 tabs daily for 4 days, 1 tab daily for 4 days, 1/2 tab daily for 4 days PREDNISONE 13308415707 No Longer Active Melinda Yokum 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 ZYRTEC ALLERGY 10 MG ORAL CAPSULE 1 po am CETIRIZINE HCL 14516538775 No Longer Active Melinda Yokum [employer]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 ZANTAC 150 MG ORAL TABLET 1 tab po q am RANITIDINE HCL 86258699885 No Longer Active Melinda Yokum 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 TAMIFLU 75 MG ORAL CAPSULE 1 cap PO bid x 5 days OSELTAMIVIR PHOSPHATE 08359010501 No Longer Active Luna Wade APRN Active LUNESTA 1 MG ORAL TABLET 1 po qHS PRN Insomnia ESZOPICLONE 48727017647 No Longer Active Joanne Auguste RMA Active VENLAFAXINE HCL 75 MG ORAL TABLET 1.5 po BID VENLAFAXINE HCL 61378059319 Active Cayetano Skinner MD Active TRAZODONE HCL 100 MG ORAL TABLET 0.5 to 1 po qHS PRN Insomnia TRAZODONE HCL 71536546442 No Longer Active Cayetano Skinner MD Active SERTRALINE HCL 100 MG ORAL TABLET 2 po qd SERTRALINE HCL 75234296068 No Longer Active Cayetano Skinner MD Active MACROBID CAPSULE 1 cap po qd. NITROFURANTOIN MONOHYD MACRO CAPS 16424457249 No Longer Active Kimberly Brown MD Active CIPRO 500 MG ORAL TABLET 1 tablet by mouth twice daily CIPROFLOXACIN HCL 09205745639 No Longer Active Cayetano Skinner MD Active MACROBID 100 MG ORAL CAPSULE Take one by mouth daily NITROFURANTOIN MONOHYD MACRO 28806182662 No Longer Active Kimberly Brown MD Active SUBOXONE 8-2 MG SUBL 2 po qd BUPRENORPHINE HCL-NALOXONE HCL 63452168495 No Longer Active Kimberly Brown MD Active HYDROCORTISONE 2.5 % EXTERNAL CREAM Apply three times a day to affected area HYDROCORTISONE 51599179812 No Longer Active Kimberly Brown MD Active AUGMENTIN 500-125 MG ORAL TABLET Take 1 capsule by mouth three times a day X 10 days AMOXICILLIN-POT CLAVULANATE 24308812105 No Longer Active Connie Reyes APRN Active BACTRIM DS 800-160 MG ORAL TABLET 1 tab by mouth twice daily TRIMETHOPRIM-SULFAMETHOXAZOLE 97600413255 No Longer Active Cayetano Skinner MD Active ZITHROMAX Z-MARTI 250 MG ORAL TABLET 2 today, then 1 daily for 4 days AZITHROMYCIN 20799106475 No Longer Active Jensen Santiago MD Active CETIRIZINE HCL 10 MG ORAL TABLET ONE DAILY CETIRIZINE HCL 66471290717 No Longer Active Jensen Santiago MD Active KLONOPIN 1 MG ORAL TABLET 1/2 tab bid CLONAZEPAM 26574337874 No Longer Active Jensen Santiago MD Active ZOLPIDEM TARTRATE 10 MG ORAL TABLET 1 q hs as needed for sleep ZOLPIDEM TARTRATE 85957683966 No Longer Active Jensen Santiago MD Active CELEXA 40 MG ORAL TABLET Take one by mouth daily CITALOPRAM HYDROBROMIDE 67167644137 No Longer Active Jensen Santiago MD Active AMOXICILLIN 875 MG ORAL TABLET 1 tab by mouth twice daily AMOXICILLIN 62432917007 No Longer Active Cayetano Skinner MD Active FLAGYL 500 MG ORAL TABLET 1 tablet by mouth two times daily METRONIDAZOLE 36429613156 No Longer Active Cayetano Skinner MD Active FLAGYL 500 MG ORAL TABLET 1 tablet by mouth two times daily METRONIDAZOLE 41006965227 No Longer Active Cayetano Skinner MD Active BUSPIRONE HCL 15 MG ORAL TABLET 1/2 PO BID BUSPIRONE HCL 45483425673 No Longer Active Cayetano Skinner MD Active BUSPIRONE HCL 15 MG ORAL TABLET 1/2 PO BID BUSPIRONE HCL 15 MG ORAL TABLET 661638 BUSPIRONE HCL Inactive CELEXA 40 MG ORAL TABLET Take one by mouth daily CELEXA 40 MG ORAL TABLET 001199 CITALOPRAM HYDROBROMIDE Inactive ZOLPIDEM TARTRATE 10 MG ORAL TABLET 1 q hs as needed for sleep ZOLPIDEM TARTRATE 10 MG ORAL TABLET 869888 ZOLPIDEM TARTRATE Inactive KLONOPIN 1 MG ORAL TABLET 1/2 tab bid KLONOPIN 1 MG ORAL TABLET 705228 CLONAZEPAM Inactive CETIRIZINE HCL 10 MG ORAL TABLET ONE DAILY CETIRIZINE HCL 10 MG ORAL TABLET 3970675 CETIRIZINE HCL Inactive HYDROCORTISONE 2.5 % EXTERNAL CREAM Apply three times a day to affected area HYDROCORTISONE 2.5 % EXTERNAL CREAM 894866 HYDROCORTISONE Inactive SUBOXONE 8-2 MG SUBL 2 po qd SUBOXONE 8-2 MG SUBL BUPRENORPHINE HCL-NALOXONE HCL Inactive CIPRO 500 MG ORAL TABLET 1 tablet by mouth twice daily CIPRO 500 MG ORAL TABLET 975763 CIPROFLOXACIN HCL Inactive MACROBID CAPSULE 1 cap po qd. MACROBID CAPSULE NITROFURANTOIN MONOHYD MACRO CAPS Inactive LUNESTA 1 MG ORAL TABLET 1 po qHS PRN Insomnia LUNESTA 1 MG ORAL TABLET 850918 ESZOPICLONE Inactive ZANTAC 150 MG ORAL TABLET 1 tab po q am ZANTAC 150 MG ORAL TABLET 399276 RANITIDINE HCL Inactive ZYRTEC ALLERGY 10 MG ORAL CAPSULE 1 po am ZYRTEC ALLERGY 10 MG ORAL CAPSULE CETIRIZINE HCL Inactive PREDNISONE 20 MG ORAL TABLET 2 tabs daily for 4 days, 1 tab daily for 4 days, 1/2 tab daily for 4 days PREDNISONE 20 MG ORAL TABLET 679193 PREDNISONE Inactive TRAZODONE HCL 100 MG ORAL TABLET 0.5 to 1 po qHS PRN Insomnia TRAZODONE HCL 100 MG ORAL TABLET 013315 TRAZODONE HCL Inactive SUBOXONE 8-2 MG SUBLINGUAL FILM 1 1/2 STRIPS QD SUBOXONE 8-2 MG SUBLINGUAL FILM BUPRENORPHINE HCL-NALOXONE HCL Inactive CYCLOBENZAPRINE HCL 10 MG ORAL TABLET Take 1 tablet up to 3 times a day as needed for muscle spasms. CYCLOBENZAPRINE HCL 10 MG ORAL TABLET 290971 CYCLOBENZAPRINE HCL Inactive FLAGYL 500 MG ORAL TABLET 1 tablet by mouth two times daily FLAGYL 500 MG ORAL TABLET 598058 METRONIDAZOLE Inactive FLAGYL 500 MG ORAL TABLET 1 tablet by mouth two times daily FLAGYL 500 MG ORAL TABLET 209078 METRONIDAZOLE Inactive AMOXICILLIN 875 MG ORAL TABLET 1 tab by mouth twice daily AMOXICILLIN 875 MG ORAL TABLET 246646 AMOXICILLIN Inactive ZITHROMAX Z-MARTI 250 MG ORAL TABLET 2 today, then 1 daily for 4 days ZITHROMAX Z-MARTI 250 MG ORAL TABLET 871675 AZITHROMYCIN Inactive BACTRIM DS 800-160 MG ORAL TABLET 1 tab by mouth twice daily BACTRIM DS 800-160 MG ORAL TABLET 022666 TRIMETHOPRIM-SULFAMETHOXAZOLE Inactive AUGMENTIN 500-125 MG ORAL TABLET Take 1 capsule by mouth three times a day X 10 days AUGMENTIN 500-125 MG ORAL TABLET 772782 AMOXICILLIN- POT CLAVULANATE Inactive MACROBID 100 MG ORAL CAPSULE Take one by mouth daily MACROBID 100 MG ORAL CAPSULE 9442812 NITROFURANTOIN MONOHYD MACRO Inactive TAMIFLU 75 MG ORAL CAPSULE 1 cap PO bid x 5 days TAMIFLU 75 MG ORAL CAPSULE 481408 OSELTAMIVIR PHOSPHATE Inactive Immunizations Vaccine Administration Date Value Standard Description Seasonal influenza vaccine, injectable, containing preservative, for > 3 years old (Afluria, FluLaval, Fluzone, Fluvirin, Fluarix, Agriflu(>=18 yo)) Fluzone (>3 yrs.) [[id number]] Influenza, seasonal, injectable Vital Signs Date Name [...] Measured Encounters Code Encounter Date Provider Facility CPT-46037 Level 3 Est. Patient 14:42:39 RADIOLOGIC TECHNICIAN Cayetano Skinner MD [facility] CPT-87567 Level 3 Est. Patient 20:19:49 RADIOLOGIC TECHNICIAN Alfa Young MD [facility] CPT-92938 Level 3 Est. Patient 13:56:06 CDT Melinda Baxter [facility] CPT-62269 Level 4 Est. Patient 22:21:42 CDT Dorothy Dovel [facility] CPT-80861 Level 4 Est. Patient 21:18:20 CDT Fadiaina Derrelll [facility] CPT-84628 Level 3 Est. Patient 10:06:58 CDT Dorothy Scottzell [facility] CPT-31135 Level 3 Est. Patient 09:36:26 CDT Dorothy Dovel [facility] CPT-34282 Level 3 Est. Patient 16:55:26 CDT Cayetano Skinner MD [facility] CPT-79560 Level 2 Est. Patient 11:28:42 CDT Kimberly Brown MD [facility]-23544 Level 3 Est. Patient 15:04:35 CDT Cayetano Skinner MD [facility] CPT-49533 Level 3 Est. Patient 15:07:05 RADIOLOGIC TECHNICIAN Cayetano Skinner MD [facility] CPT-73231 Level 3 Est. Patient 09:56:19 CDT Connie Reyes JOY [facility] CPT-21039 Level 3 Est. Patient 12:31:18 RADIOLOGIC TECHNICIAN Jensen Santiago MD [facility] CPT-34468 Level 3 Est. Patient 10:35:02 RADIOLOGIC TECHNICIAN Cayetano Skinner MD [facility] CPT-45840 Level 3 Est. Patient 12:50:08 RADIOLOGIC TECHNICIAN Cayetano Skinner MD [facility] Procedures Code Procedure Name Date Entry Date Standard Description CPT-02285 Abx/Therapy Injection 09:57:17 CDT CPT-J1885 Toradol 30 mg (Ketorolac) 09:49:34 CDT CPT-94653 Venipuncture Draw Fee 10:10:37 CDT CPT-20592 [facility] 10:06:58 CDT CPT-41030 Bladder Scan 19:49:06 RADIOLOGIC TECHNICIAN CPT-67021 Spec Collection and Handling Fee 11:57:40 CDT CPT-J1020 Depo Medrol 60 mg (Methyl Prednisolone Acetate) 12:03:49 CDT CPT-53276 Abx/Therapy Injection 12:03:48 CDT CPT-J1020 Depo Medrol 60 mg (Methyl Prednisolone Acetate) 09:56:19 CDT CPT-64433 Spec Collection and Handling Fee 12:10:42 CDT CPT-PV Prev. Care Visit 12:10:42 CDT CPT-45899 Administration single or combination vaccine inc oral 16:45:52 RADIOLOGIC TECHNICIAN CPT-09434 Influenza split virus > age 3 16:45:52 RADIOLOGIC TECHNICIAN CPT-65731 Spec Collection and Handling Fee 10:35:02 RADIOLOGIC TECHNICIAN
--- OUTSIDE RECORDS SUMMARY | 2019-04-22 10:31 | XMS REPORT | Clinical Summary ---
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 ZYRTEC ALLERGY 10 MG ORAL CAPSULE 1 po am CETIRIZINE HCL 73294948510 No Longer Active Melinda Yokum 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 ZANTAC 150 MG ORAL TABLET 1 tab po q am RANITIDINE HCL 55121074209 No Longer Active Melinda Yokum 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 TAMIFLU 75 MG ORAL CAPSULE 1 cap PO bid x 5 days OSELTAMIVIR PHOSPHATE 00521739345 No Longer Active Luna Wade APRN Active LUNESTA 1 MG ORAL TABLET 1 po qHS PRN Insomnia ESZOPICLONE 02296946839 No Longer Active Joanne Auguste RMA Active VENLAFAXINE HCL 75 MG ORAL TABLET 1.5 po BID VENLAFAXINE HCL 58431772667 Active Cayetano Skinner MD Active TRAZODONE HCL 100 MG ORAL TABLET 0.5 to 1 po qHS PRN Insomnia TRAZODONE HCL 34699503560 No Longer Active Cayetano Skinner MD Active SERTRALINE HCL 100 MG ORAL TABLET 2 po qd SERTRALINE HCL 81095337640 No Longer Active Cayetano Skinner MD Active MACROBID CAPSULE 1 cap po qd. NITROFURANTOIN MONOHYD MACRO CAPS 38137363959 No Longer Active Kimberly Brown MD Active CIPRO 500 MG ORAL TABLET 1 tablet by mouth twice daily CIPROFLOXACIN HCL 00035030523 No Longer Active Cayetano Skinner MD Active MACROBID 100 MG ORAL CAPSULE Take one by mouth daily NITROFURANTOIN MONOHYD MACRO 80492847068 No Longer Active Kimberly Brown MD Active SUBOXONE 8-2 MG SUBL 2 po qd BUPRENORPHINE HCL-NALOXONE HCL 01574269596 No Longer Active Kimberly Brown MD Active HYDROCORTISONE 2.5 % EXTERNAL CREAM Apply three times a day to affected area HYDROCORTISONE 64021852428 No Longer Active Kimberly Brown MD Active AUGMENTIN 500-125 MG ORAL TABLET Take 1 capsule by mouth three times a day X 10 days AMOXICILLIN-POT CLAVULANATE 88735902636 No Longer Active Connie Reyes APRN Active BACTRIM DS 800-160 MG ORAL TABLET 1 tab by mouth twice daily TRIMETHOPRIM-SULFAMETHOXAZOLE 41408528977 No Longer Active Cayetano Skinner MD Active ZITHROMAX Z-MARTI 250 MG ORAL TABLET 2 today, then 1 daily for 4 days AZITHROMYCIN 03395331987 No Longer Active Jensen Santiago MD Active CETIRIZINE HCL 10 MG ORAL TABLET ONE DAILY CETIRIZINE HCL 36348341331 No Longer Active Jensen Santiago MD Active KLONOPIN 1 MG ORAL TABLET 1/2 tab bid CLONAZEPAM 28453861488 No Longer Active Jensen Santiago MD Active ZOLPIDEM TARTRATE 10 MG ORAL TABLET 1 q hs as needed for sleep ZOLPIDEM TARTRATE 44035104294 No Longer Active Jensen Santiago MD Active CELEXA 40 MG ORAL TABLET Take one by mouth daily CITALOPRAM HYDROBROMIDE 46882452474 No Longer Active Jensen Santiago MD Active AMOXICILLIN 875 MG ORAL TABLET 1 tab by mouth twice daily AMOXICILLIN 48283301729 No Longer Active Cayetano Skinner MD Active FLAGYL 500 MG ORAL TABLET 1 tablet by mouth two times daily METRONIDAZOLE 93799918554 No Longer Active Cayetano Skinner MD Active FLAGYL 500 MG ORAL TABLET 1 tablet by mouth two times daily METRONIDAZOLE 76962347345 No Longer Active Cayetano Skinner MD Active BUSPIRONE HCL 15 MG ORAL TABLET 1/2 PO BID BUSPIRONE HCL 12321667337 No Longer Active Cayetano Skinner MD Active BUSPIRONE HCL 15 MG ORAL TABLET 1/2 PO BID BUSPIRONE HCL 15 MG ORAL TABLET 495898 BUSPIRONE HCL Inactive CELEXA 40 MG ORAL TABLET Take one by mouth daily CELEXA 40 MG ORAL TABLET 634556 CITALOPRAM HYDROBROMIDE Inactive ZOLPIDEM TARTRATE 10 MG ORAL TABLET 1 q hs as needed for sleep ZOLPIDEM TARTRATE 10 MG ORAL TABLET 724920 ZOLPIDEM TARTRATE Inactive KLONOPIN 1 MG ORAL TABLET 1/2 tab bid KLONOPIN 1 MG ORAL TABLET 809731 CLONAZEPAM Inactive CETIRIZINE HCL 10 MG ORAL TABLET ONE DAILY CETIRIZINE HCL 10 MG ORAL TABLET 3641590 CETIRIZINE HCL Inactive HYDROCORTISONE 2.5 % EXTERNAL CREAM Apply three times a day to affected area HYDROCORTISONE 2.5 % EXTERNAL CREAM 247502 HYDROCORTISONE Inactive SUBOXONE 8-2 MG SUBL 2 po qd SUBOXONE 8-2 MG SUBL BUPRENORPHINE HCL-NALOXONE HCL Inactive CIPRO 500 MG ORAL TABLET 1 tablet by mouth twice daily CIPRO 500 MG ORAL TABLET 844975 CIPROFLOXACIN HCL Inactive MACROBID CAPSULE 1 cap po qd. MACROBID CAPSULE NITROFURANTOIN MONOHYD MACRO CAPS Inactive LUNESTA 1 MG ORAL TABLET 1 po qHS PRN Insomnia LUNESTA 1 MG ORAL TABLET 168695 ESZOPICLONE Inactive ZANTAC 150 MG ORAL TABLET 1 tab po q am ZANTAC 150 MG ORAL TABLET 015340 RANITIDINE HCL Inactive ZYRTEC ALLERGY 10 MG ORAL CAPSULE 1 po am ZYRTEC ALLERGY 10 MG ORAL CAPSULE CETIRIZINE HCL Inactive PREDNISONE 20 MG ORAL TABLET 2 tabs daily for 4 days, 1 tab daily for 4 days, 1/2 tab daily for 4 days PREDNISONE 20 MG ORAL TABLET 030853 PREDNISONE Inactive TRAZODONE HCL 100 MG ORAL TABLET 0.5 to 1 po qHS PRN Insomnia TRAZODONE HCL 100 MG ORAL TABLET 921686 TRAZODONE HCL Inactive SUBOXONE 8-2 MG SUBLINGUAL FILM 1 1/2 STRIPS QD SUBOXONE 8-2 MG SUBLINGUAL FILM BUPRENORPHINE HCL-NALOXONE HCL Inactive CYCLOBENZAPRINE HCL 10 MG ORAL TABLET Take 1 tablet up to 3 times a day as needed for muscle spasms. CYCLOBENZAPRINE HCL 10 MG ORAL TABLET 588617 CYCLOBENZAPRINE HCL Inactive FLAGYL 500 MG ORAL TABLET 1 tablet by mouth two times daily FLAGYL 500 MG ORAL TABLET 241787 METRONIDAZOLE Inactive FLAGYL 500 MG ORAL TABLET 1 tablet by mouth two times daily FLAGYL 500 MG ORAL TABLET 028539 METRONIDAZOLE Inactive AMOXICILLIN 875 MG ORAL TABLET 1 tab by mouth twice daily AMOXICILLIN 875 MG ORAL TABLET 228993 AMOXICILLIN Inactive ZITHROMAX Z-MARTI 250 MG ORAL TABLET 2 today, then 1 daily for 4 days ZITHROMAX Z-MARTI 250 MG ORAL TABLET 039205 AZITHROMYCIN Inactive BACTRIM DS 800-160 MG ORAL TABLET 1 tab by mouth twice daily BACTRIM DS 800-160 MG ORAL TABLET 069790 TRIMETHOPRIM-SULFAMETHOXAZOLE Inactive AUGMENTIN 500-125 MG ORAL TABLET Take 1 capsule by mouth three times a day X 10 days AUGMENTIN 500-125 MG ORAL TABLET 618420 AMOXICILLIN- POT CLAVULANATE Inactive MACROBID 100 MG ORAL CAPSULE Take one by mouth daily MACROBID 100 MG ORAL CAPSULE 2997063 NITROFURANTOIN MONOHYD MACRO Inactive TAMIFLU 75 MG ORAL CAPSULE 1 cap PO bid x 5 days TAMIFLU 75 MG ORAL CAPSULE 071072 OSELTAMIVIR PHOSPHATE Inactive Immunizations Vaccine Administration Date Value Standard Description Seasonal influenza vaccine, injectable, containing preservative, for > 3 years old (Afluria, FluLaval, Fluzone, Fluvirin, Fluarix, Agriflu(>=18 yo)) Fluzone (>3 yrs.) [[id number]] Influenza, seasonal, injectable Vital Signs Date Name [...] Measured Encounters Code Encounter Date Provider Facility CPT-54292 Level 3 Est. Patient 14:42:39 STAFF SONOGRAPHER Cayetano Skinner MD [facility] CPT-11275 Level 3 Est. Patient 20:19:49 STAFF SONOGRAPHER Alfa Young MD [facility] CPT-53852 Level 3 Est. Patient 13:56:06 CDT Melinda Baxter [facility] CPT-47574 Level 4 Est. Patient 22:21:42 CDT Dorothy Dovel [facility] CPT-28405 Level 4 Est. Patient 21:18:20 CDT Fadiaina Derrelll [facility] CPT-40233 Level 3 Est. Patient 10:06:58 CDT Dorothy Scottzell [facility] CPT-43063 Level 3 Est. Patient 09:36:26 CDT Dorothy Dovel [facility] CPT-54176 Level 3 Est. Patient 16:55:26 CDT Cayetano Skinner MD [facility] CPT-24162 Level 2 Est. Patient 11:28:42 CDT Kimberly Brown MD [facility]-35334 Level 3 Est. Patient 15:04:35 CDT Cayetano Skinner MD [facility] CPT-20733 Level 3 Est. Patient 15:07:05 STAFF SONOGRAPHER Cayetano Skinner MD [facility] CPT-36461 Level 3 Est. Patient 09:56:19 CDT Connie Reyes JOY [facility] CPT-48958 Level 3 Est. Patient 12:31:18 STAFF SONOGRAPHER Jensen Santiago MD [facility] CPT-63046 Level 3 Est. Patient 10:35:02 STAFF SONOGRAPHER Cayetano Skinner MD [facility] CPT-01279 Level 3 Est. Patient 12:50:08 STAFF SONOGRAPHER Cayetano Skinner MD [facility] Procedures Code Procedure Name Date Entry Date Standard Description CPT-79595 Abx/Therapy Injection 09:57:17 CDT CPT-J1885 Toradol 30 mg (Ketorolac) 09:49:34 CDT CPT-29345 Venipuncture Draw Fee 10:10:37 CDT CPT-98186 [facility] 10:06:58 CDT CPT-26194 Bladder Scan 19:49:06 STAFF SONOGRAPHER CPT-06601 Spec Collection and Handling Fee 11:57:40 CDT CPT-J1020 Depo Medrol 60 mg (Methyl Prednisolone Acetate) 12:03:49 CDT CPT-86140 Abx/Therapy Injection 12:03:48 CDT CPT-J1020 Depo Medrol 60 mg (Methyl Prednisolone Acetate) 09:56:19 CDT CPT-74150 Spec Collection and Handling Fee 12:10:42 CDT CPT-PV Prev. Care Visit 12:10:42 CDT CPT-34260 Administration single or combination vaccine inc oral 16:45:52 STAFF SONOGRAPHER CPT-49147 Influenza split virus > age 3 16:45:52 STAFF SONOGRAPHER CPT-09709 Spec Collection and Handling Fee 10:35:02 STAFF SONOGRAPHER
--- OUTSIDE RECORDS SUMMARY | 2019-04-22 10:32 | XMS REPORT | Clinical Summary ---
Author Author Admin, [place] Organization [employer] Address Unknown Phone Unavailable Allergies, Adverse Reactions, [...] spasm of neck 728.85 Inactive Melinda Baxter [employer] Spasm of muscle BMI 20-20.9 Active Alfa [...] Cayetano Skinner MD Hepatitis C ICD-070.70 Inactive Cayteano Skinner MD Muscle spasm of neck ICD-728.85 Inactive Melinda Yokum [employer] Medication List Medication Instructions Start Date Stop Date Generic Name NDC Status Provider Patient Instruction TRAMADOL HCL 50 MG ORAL TABLET take 1 tab po q6hrs prn pain TRAMADOL HCL 01734831198 Active Alfa Young MD Active CYCLOBENZAPRINE HCL 10 MG ORAL TABLET Take 1 tablet up to 3 times a day as needed for muscle spasms. 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 ZYRTEC ALLERGY 10 MG ORAL CAPSULE 1 po am CETIRIZINE HCL 36504538784 No Longer Active Melinda Yokum [employer] PINCH[employer] Active ZANTAC 150 MG ORAL TABLET 1 tab po q am RANITIDINE HCL 80341219657 No Longer Active Melinda Yokum [employer] PIN[employer] Active TAMIFLU 75 MG ORAL CAPSULE 1 cap PO bid x 5 days OSELTAMIVIR PHOSPHATE 30785713345 No Longer Active Luna Wade APRN Active LUNESTA 1 MG ORAL TABLET 1 po qHS PRN Insomnia ESZOPICLONE 70507704927 No Longer Active Joanne Auguste RMA Active VENLAFAXINE HCL 75 MG ORAL TABLET 1.5 po BID VENLAFAXINE HCL 65063397766 Active Cayetano Skinner MD Active TRAZODONE HCL 100 MG ORAL TABLET 0.5 to 1 po qHS PRN Insomnia TRAZODONE HCL 16350216137 No Longer Active Cayetano Skinner MD Active SERTRALINE HCL 100 MG ORAL TABLET 2 po qd SERTRALINE HCL 32628878748 No Longer Active Cayetano Skinner MD Active MACROBID CAPSULE 1 cap po qd. NITROFURANTOIN MONOHYD MACRO CAPS 07837155266 No Longer Active Kimberly Brown MD Active CIPRO 500 MG ORAL TABLET 1 tablet by mouth twice daily CIPROFLOXACIN HCL 06566548525 No Longer Active Cayetnao Skinner MD Active MACROBID 100 MG ORAL CAPSULE Take one by mouth daily NITROFURANTOIN MONOHYD MACRO 22619495831 No Longer Active Kimberly Brown MD Active SUBOXONE 8-2 MG SUBL 2 po qd BUPRENORPHINE HCL-NALOXONE HCL 86158169369 No Longer Active Kimberyl Brown MD Active HYDROCORTISONE 2.5 % EXTERNAL CREAM Apply three times a day to affected area HYDROCORTISONE 87116170739 No Longer Active Kimberly Brown MD Active AUGMENTIN 500-125 MG ORAL TABLET Take 1 capsule by mouth three times a day X 10 days AMOXICILLIN-POT CLAVULANATE 98106224289 No Longer Active Connie Reyes APRN Active BACTRIM DS 800-160 MG ORAL TABLET 1 tab by mouth twice daily TRIMETHOPRIM-SULFAMETHOXAZOLE 55109502701 No Longer Active Cayetano Skinner MD Active ZITHROMAX Z-MARTI 250 MG ORAL TABLET 2 today, then 1 daily for 4 days AZITHROMYCIN 97865516160 No Longer Active Jensen Santiago MD Active CETIRIZINE HCL 10 MG ORAL TABLET ONE DAILY CETIRIZINE HCL 19997074393 No Longer Active Jensen Santiago MD Active KLONOPIN 1 MG ORAL TABLET 1/2 tab bid CLONAZEPAM 74122942973 No Longer Active Jensen Santiago MD Active ZOLPIDEM TARTRATE 10 MG ORAL TABLET 1 q hs as needed for sleep ZOLPIDEM TARTRATE 86973687651 No Longer Active Jensen Santiago MD Active CELEXA 40 MG ORAL TABLET Take one by mouth daily CITALOPRAM HYDROBROMIDE 38280206328 No Longer Active Jensen Santiago MD Active AMOXICILLIN 875 MG ORAL TABLET 1 tab by mouth twice daily AMOXICILLIN 87345674279 No Longer Active Cayetano Skinner MD Active FLAGYL 500 MG ORAL TABLET 1 tablet by mouth two times daily METRONIDAZOLE 25346108142 No Longer Active Cayetano Skinner MD Active FLAGYL 500 MG ORAL TABLET 1 tablet by mouth two times daily METRONIDAZOLE 35771633030 No Longer Active Cayetano Skinner MD Active BUSPIRONE HCL 15 MG ORAL TABLET 1/2 PO BID BUSPIRONE HCL 35428376306 No Longer Active Cayetano Skinner MD Active BUSPIRONE HCL 15 MG ORAL TABLET 1/2 PO BID BUSPIRONE HCL 15 MG ORAL TABLET 385495 BUSPIRONE HCL Inactive CELEXA 40 MG ORAL TABLET Take one by mouth daily CELEXA 40 MG ORAL TABLET 217148 CITALOPRAM HYDROBROMIDE Inactive ZOLPIDEM TARTRATE 10 MG ORAL TABLET 1 q hs as needed for sleep ZOLPIDEM TARTRATE 10 MG ORAL TABLET 082524 ZOLPIDEM TARTRATE Inactive KLONOPIN 1 MG ORAL TABLET 1/2 tab bid KLONOPIN 1 MG ORAL TABLET 602422 CLONAZEPAM Inactive CETIRIZINE HCL 10 MG ORAL TABLET ONE DAILY CETIRIZINE HCL 10 MG ORAL TABLET 2154000 CETIRIZINE HCL Inactive HYDROCORTISONE 2.5 % EXTERNAL CREAM Apply three times a day to affected area HYDROCORTISONE 2.5 % EXTERNAL CREAM 362087 HYDROCORTISONE Inactive SUBOXONE 8-2 MG SUBL 2 po qd SUBOXONE 8-2 MG SUBL BUPRENORPHINE HCL-NALOXONE HCL Inactive CIPRO 500 MG ORAL TABLET 1 tablet by mouth twice daily CIPRO 500 MG ORAL TABLET 625015 CIPROFLOXACIN HCL Inactive MACROBID CAPSULE 1 cap po qd. MACROBID CAPSULE NITROFURANTOIN MONOHYD MACRO CAPS Inactive LUNESTA 1 MG ORAL TABLET 1 po qHS PRN Insomnia LUNESTA 1 MG ORAL TABLET 951585 ESZOPICLONE Inactive ZANTAC 150 MG ORAL TABLET 1 tab po q am ZANTAC 150 MG ORAL TABLET 750748 RANITIDINE HCL Inactive ZYRTEC ALLERGY 10 MG ORAL CAPSULE 1 po am ZYRTEC ALLERGY 10 MG ORAL CAPSULE CETIRIZINE HCL Inactive PREDNISONE 20 MG ORAL TABLET 2 tabs daily for 4 days, 1 tab daily for 4 days, 1/2 tab daily for 4 days PREDNISONE 20 MG ORAL TABLET 177671 PREDNISONE Inactive TRAZODONE HCL 100 MG ORAL TABLET 0.5 to 1 po qHS PRN Insomnia TRAZODONE HCL 100 MG ORAL TABLET 675478 TRAZODONE HCL Inactive SUBOXONE 8-2 MG SUBLINGUAL FILM 1 1/2 STRIPS QD SUBOXONE 8-2 MG SUBLINGUAL FILM BUPRENORPHINE HCL-NALOXONE HCL Inactive CYCLOBENZAPRINE HCL 10 MG ORAL TABLET Take 1 tablet up to 3 times a day as needed for muscle spasms. CYCLOBENZAPRINE HCL 10 MG ORAL TABLET 654897 CYCLOBENZAPRINE HCL Inactive FLAGYL 500 MG ORAL TABLET 1 tablet by mouth two times daily FLAGYL 500 MG ORAL TABLET 735954 METRONIDAZOLE Inactive FLAGYL 500 MG ORAL TABLET 1 tablet by mouth two times daily FLAGYL 500 MG ORAL TABLET 430223 METRONIDAZOLE Inactive AMOXICILLIN 875 MG ORAL TABLET 1 tab by mouth twice daily AMOXICILLIN 875 MG ORAL TABLET 514425 AMOXICILLIN Inactive ZITHROMAX Z-MARTI 250 MG ORAL TABLET 2 today, then 1 daily for 4 days ZITHROMAX Z-MARTI 250 MG ORAL TABLET 469653 AZITHROMYCIN Inactive BACTRIM DS 800-160 MG ORAL TABLET 1 tab by mouth twice daily BACTRIM DS 800-160 MG ORAL TABLET 027447 TRIMETHOPRIM-SULFAMETHOXAZOLE Inactive AUGMENTIN 500-125 MG ORAL TABLET Take 1 capsule by mouth three times a day X 10 days AUGMENTIN 500-125 MG ORAL TABLET 542780 AMOXICILLIN- POT CLAVULANATE Inactive MACROBID 100 MG ORAL CAPSULE Take one by mouth daily MACROBID 100 MG ORAL CAPSULE 8714222 NITROFURANTOIN MONOHYD MACRO Inactive TAMIFLU 75 MG ORAL CAPSULE 1 cap PO bid x 5 days TAMIFLU 75 MG ORAL CAPSULE 677838 OSELTAMIVIR PHOSPHATE Inactive Immunizations Vaccine Administration Date Value Standard Description Seasonal influenza vaccine, injectable, containing preservative, for > 3 years old (Afluria, FluLaval, Fluzone, Fluvirin, Fluarix, Agriflu(>=18 yo)) Fluzone (>3 yrs.) [[id number]] Influenza, seasonal, injectable Vital Signs Date Name [...] Measured Encounters Code Encounter Date Provider Facility CPT-95420 Level 3 Est. Patient 14:42:39 CORRECTIONS NURSE Cayetano Skinner MD [facility] CPT-94360 Level 3 Est. Patient 20:19:49 CORRECTIONS NURSE Alfa Young MD [facility] CPT-49030 Level 3 Est. Patient 13:56:06 CDT Melinda Baxter [facility][note 3] CPT-80930 Level 4 Est. Patient 22:21:42 CDT Dorothy Dovel [facility][note 3] CPT-35521 Level 4 Est. Patient 21:18:20 CDT Fadiaina Derrelll [facility][note 3] CPT-28254 Level 3 Est. Patient 10:06:58 CDT Dorothy Scottzell [facility][note 3] CPT-55371 Level 3 Est. Patient 09:36:26 CDT Dorothy Dovel [facility][note 3] CPT-94835 Level 3 Est. Patient 16:55:26 CDT Cayetano Skinner MD [facility] CPT-52363 Level 2 Est. Patient 11:28:42 CDT Kimberly Brown MD [facility]-28823 Level 3 Est. Patient 15:04:35 CDT Cayetano Skinner MD [facility] CPT-31621 Level 3 Est. Patient 15:07:05 CORRECTIONS NURSE Cayetano Skinner MD [facility] CPT-78748 Level 3 Est. Patient 09:56:19 CDT Connie Reyes JOY [facility] CPT-68042 Level 3 Est. Patient 12:31:18 CORRECTIONS NURSE Jensen Santiago MD [facility] CPT-33819 Level 3 Est. Patient 10:35:02 CORRECTIONS NURSE Cayetano Skinner MD [facility] CPT-58132 Level 3 Est. Patient 12:50:08 CORRECTIONS NURSE Cayetano Skinner MD [facility] Procedures Code Procedure Name Date Entry Date Standard Description CPT-93246 Abx/Therapy Injection 09:57:17 CDT CPT-J1885 Toradol 30 mg (Ketorolac) 09:49:34 CDT CPT-68611 Venipuncture Draw Fee 10:10:37 CDT CPT-57138 [facility] 10:06:58 CDT CPT-48940 Bladder Scan 19:49:06 CORRECTIONS NURSE CPT-55439 Spec Collection and Handling Fee 11:57:40 CDT CPT-J1020 Depo Medrol 60 mg (Methyl Prednisolone Acetate) 12:03:49 CDT CPT-06525 Abx/Therapy Injection 12:03:48 CDT CPT-J1020 Depo Medrol 60 mg (Methyl Prednisolone Acetate) 09:56:19 CDT CPT-29370 Spec Collection and Handling Fee 12:10:42 CDT CPT-PV Prev. Care Visit 12:10:42 CDT CPT-17884 Administration single or combination vaccine inc oral 16:45:52 CORRECTIONS NURSE CPT-23480 Influenza split virus > age 3 16:45:52 CORRECTIONS NURSE CPT-60780 Spec Collection and Handling Fee 10:35:02 CORRECTIONS NURSE
--- OUTSIDE RECORDS SUMMARY | 2019-04-22 10:32 | XMS REPORT | Clinical Summary ---
Author Author Admin, [place] Organization [employer] Address Unknown Phone Unavailable Allergies, Adverse Reactions, [...] spasm of neck 728.85 Inactive Melinda Baxter [employer] Spasm of muscle BMI 20-20.9 Active Alfa [...] spasm of neck ICD-728.85 Inactive Melinda Yokum [employer] Medication List Medication Instructions Start Date Stop Date Generic Name NDC Status Provider Patient Instruction TRAMADOL HCL 50 MG ORAL TABLET take 1 tab po q6hrs prn pain TRAMADOL HCL 53707140012 Active Alfa Young MD Active CYCLOBENZAPRINE HCL 10 MG ORAL TABLET Take 1 tablet up to 3 times a day as needed for muscle spasms. CYCLOBENZAPRINE HCL 39500188347 No Longer Active Alfa Young MD Active SUBOXONE 8-2 MG SUBLINGUAL FILM 1 1/2 STRIPS QD BUPRENORPHINE HCL-NALOXONE HCL 54423221071 No Longer Active Melinda Yokum [employer] Active TRAZODONE HCL 100 MG ORAL TABLET 0.5 to 1 po qHS PRN Insomnia TRAZODONE HCL 42013906291 No Longer Active Melinda Yokum [employer] Active PREDNISONE 20 MG ORAL TABLET 2 tabs daily for 4 days, 1 tab daily for 4 days, 1/2 tab daily for 4 days PREDNISONE 27527357555 No Longer Active Melinda Yokum [employer] Active ZYRTEC ALLERGY 10 MG ORAL CAPSULE 1 po am CETIRIZINE HCL 87635772135 No Longer Active Melinda Yokum [employer] Active ZANTAC 150 MG ORAL TABLET 1 tab po q am RANITIDINE HCL 53740143960 No Longer Active Melinda Yokum [employer] Active TAMIFLU 75 MG ORAL CAPSULE 1 cap PO bid x 5 days OSELTAMIVIR PHOSPHATE 54432858163 No Longer Active Luna Wade APRN Active LUNESTA 1 MG ORAL TABLET 1 po qHS PRN Insomnia ESZOPICLONE 21106762927 No Longer Active Joanne Auguste RMA Active VENLAFAXINE HCL 75 MG ORAL TABLET 1.5 po BID VENLAFAXINE HCL 68252442805 Active Cayetano Skinner MD Active TRAZODONE HCL 100 MG ORAL TABLET 0.5 to 1 po qHS PRN Insomnia TRAZODONE HCL 78631883264 No Longer Active Cayetano Skinner MD Active SERTRALINE HCL 100 MG ORAL TABLET 2 po qd SERTRALINE HCL 64784889139 No Longer Active Cayetano Skinner MD Active MACROBID CAPSULE 1 cap po qd. NITROFURANTOIN MONOHYD MACRO CAPS 90362163678 No Longer Active Kimberly Brown MD Active CIPRO 500 MG ORAL TABLET 1 tablet by mouth twice daily CIPROFLOXACIN HCL 77134336921 No Longer Active Cayetano Skinner MD Active MACROBID 100 MG ORAL CAPSULE Take one by mouth daily NITROFURANTOIN MONOHYD MACRO 70240818141 No Longer Active Kimberly Brown MD Active SUBOXONE 8-2 MG SUBL 2 po qd BUPRENORPHINE HCL-NALOXONE HCL 72656715031 No Longer Active Kimberly Brown MD Active HYDROCORTISONE 2.5 % EXTERNAL CREAM Apply three times a day to affected area HYDROCORTISONE 97972892889 No Longer Active Kimberly Brown MD Active AUGMENTIN 500-125 MG ORAL TABLET Take 1 capsule by mouth three times a day X 10 days AMOXICILLIN-POT CLAVULANATE 95171881811 No Longer Active Connie Reyes APRN Active BACTRIM DS 800-160 MG ORAL TABLET 1 tab by mouth twice daily TRIMETHOPRIM-SULFAMETHOXAZOLE 76629971649 No Longer Active Cayetano Skinner MD Active ZITHROMAX Z-MARTI 250 MG ORAL TABLET 2 today, then 1 daily for 4 days AZITHROMYCIN 64628296322 No Longer Active Jensen Santiago MD Active CETIRIZINE HCL 10 MG ORAL TABLET ONE DAILY CETIRIZINE HCL 91918024249 No Longer Active Jensen Santiago MD Active KLONOPIN 1 MG ORAL TABLET 1/2 tab bid CLONAZEPAM 94196567959 No Longer Active Jensen Santiago MD Active ZOLPIDEM TARTRATE 10 MG ORAL TABLET 1 q hs as needed for sleep ZOLPIDEM TARTRATE 09082130677 No Longer Active Jensen Santiago MD Active CELEXA 40 MG ORAL TABLET Take one by mouth daily CITALOPRAM HYDROBROMIDE 12706163963 No Longer Active Jensen Santiago MD Active AMOXICILLIN 875 MG ORAL TABLET 1 tab by mouth twice daily AMOXICILLIN 20323611156 No Longer Active Cayetano Skinner MD Active FLAGYL 500 MG ORAL TABLET 1 tablet by mouth two times daily METRONIDAZOLE 39469202614 No Longer Active Cayetano Skinner MD Active FLAGYL 500 MG ORAL TABLET 1 tablet by mouth two times daily METRONIDAZOLE 45552246095 No Longer Active Cayetano Skinner MD Active BUSPIRONE HCL 15 MG ORAL TABLET 1/2 PO BID BUSPIRONE HCL 43052174248 No Longer Active Cayetano Skinner MD Active BUSPIRONE HCL 15 MG ORAL TABLET 1/2 PO BID BUSPIRONE HCL 15 MG ORAL TABLET 910853 BUSPIRONE HCL Inactive CELEXA 40 MG ORAL TABLET Take one by mouth daily CELEXA 40 MG ORAL TABLET 567432 CITALOPRAM HYDROBROMIDE Inactive ZOLPIDEM TARTRATE 10 MG ORAL TABLET 1 q hs as needed for sleep ZOLPIDEM TARTRATE 10 MG ORAL TABLET 367836 ZOLPIDEM TARTRATE Inactive KLONOPIN 1 MG ORAL TABLET 1/2 tab bid KLONOPIN 1 MG ORAL TABLET 556847 CLONAZEPAM Inactive CETIRIZINE HCL 10 MG ORAL TABLET ONE DAILY CETIRIZINE HCL 10 MG ORAL TABLET 6601610 CETIRIZINE HCL Inactive HYDROCORTISONE 2.5 % EXTERNAL CREAM Apply three times a day to affected area HYDROCORTISONE 2.5 % EXTERNAL CREAM 783967 HYDROCORTISONE Inactive SUBOXONE 8-2 MG SUBL 2 po qd SUBOXONE 8-2 MG SUBL BUPRENORPHINE HCL-NALOXONE HCL Inactive CIPRO 500 MG ORAL TABLET 1 tablet by mouth twice daily CIPRO 500 MG ORAL TABLET 796400 CIPROFLOXACIN HCL Inactive MACROBID CAPSULE 1 cap po qd. MACROBID CAPSULE NITROFURANTOIN MONOHYD MACRO CAPS Inactive LUNESTA 1 MG ORAL TABLET 1 po qHS PRN Insomnia LUNESTA 1 MG ORAL TABLET 650119 ESZOPICLONE Inactive ZANTAC 150 MG ORAL TABLET 1 tab po q am ZANTAC 150 MG ORAL TABLET 668629 RANITIDINE HCL Inactive ZYRTEC ALLERGY 10 MG ORAL CAPSULE 1 po am ZYRTEC ALLERGY 10 MG ORAL CAPSULE CETIRIZINE HCL Inactive PREDNISONE 20 MG ORAL TABLET 2 tabs daily for 4 days, 1 tab daily for 4 days, 1/2 tab daily for 4 days PREDNISONE 20 MG ORAL TABLET 943142 PREDNISONE Inactive TRAZODONE HCL 100 MG ORAL TABLET 0.5 to 1 po qHS PRN Insomnia TRAZODONE HCL 100 MG ORAL TABLET 436197 TRAZODONE HCL Inactive SUBOXONE 8-2 MG SUBLINGUAL FILM 1 1/2 STRIPS QD SUBOXONE 8-2 MG SUBLINGUAL FILM BUPRENORPHINE HCL-NALOXONE HCL Inactive CYCLOBENZAPRINE HCL 10 MG ORAL TABLET Take 1 tablet up to 3 times a day as needed for muscle spasms. CYCLOBENZAPRINE HCL 10 MG ORAL TABLET 450867 CYCLOBENZAPRINE HCL Inactive FLAGYL 500 MG ORAL TABLET 1 tablet by mouth two times daily FLAGYL 500 MG ORAL TABLET 144374 METRONIDAZOLE Inactive FLAGYL 500 MG ORAL TABLET 1 tablet by mouth two times daily FLAGYL 500 MG ORAL TABLET 838684 METRONIDAZOLE Inactive AMOXICILLIN 875 MG ORAL TABLET 1 tab by mouth twice daily AMOXICILLIN 875 MG ORAL TABLET 740175 AMOXICILLIN Inactive ZITHROMAX Z-MARTI 250 MG ORAL TABLET 2 today, then 1 daily for 4 days ZITHROMAX Z-MARTI 250 MG ORAL TABLET 357400 AZITHROMYCIN Inactive BACTRIM DS 800-160 MG ORAL TABLET 1 tab by mouth twice daily BACTRIM DS 800-160 MG ORAL TABLET 894946 TRIMETHOPRIM-SULFAMETHOXAZOLE Inactive AUGMENTIN 500-125 MG ORAL TABLET Take 1 capsule by mouth three times a day X 10 days AUGMENTIN 500-125 MG ORAL TABLET 892799 AMOXICILLIN- POT CLAVULANATE Inactive MACROBID 100 MG ORAL CAPSULE Take one by mouth daily MACROBID 100 MG ORAL CAPSULE 6473848 NITROFURANTOIN MONOHYD MACRO Inactive TAMIFLU 75 MG ORAL CAPSULE 1 cap PO bid x 5 days TAMIFLU 75 MG ORAL CAPSULE 921597 OSELTAMIVIR PHOSPHATE Inactive Immunizations Vaccine Administration Date Value Standard Description Seasonal influenza vaccine, injectable, containing preservative, for > 3 years old (Afluria, FluLaval, Fluzone, Fluvirin, Fluarix, Agriflu(>=18 yo)) Fluzone (>3 yrs.) [[id number]] Influenza, seasonal, injectable Vital Signs Date Name [...] Measured Encounters Code Encounter Date Provider Facility CPT-45182 Level 3 Est. Patient 14:42:39 CORPORATE TRAINER Cayetano Skinner MD [facility] CPT-59531 Level 3 Est. Patient 20:19:49 CORPORATE TRAINER Alfa Young MD [facility] CPT-40172 Level 3 Est. Patient 13:56:06 CDT Melinda Baxter [facility] CPT-76289 Level 4 Est. Patient 22:21:42 CDT Dorothy Dovel [facility] CPT-88517 Level 4 Est. Patient 21:18:20 CDT Fadiaina Derrelll [facility] CPT-05396 Level 3 Est. Patient 10:06:58 CDT Dorothy Scottzell [facility] CPT-40087 Level 3 Est. Patient 09:36:26 CDT Dorothy Dovel [facility] CPT-05498 Level 3 Est. Patient 16:55:26 CDT Cayetano Skinner MD [facility] CPT-94361 Level 2 Est. Patient 11:28:42 CDT Kimberly Brown MD [facility]-26494 Level 3 Est. Patient 15:04:35 CDT Cayetano Skinner MD [facility] CPT-96486 Level 3 Est. Patient 15:07:05 CORPORATE TRAINER Cayetano Skinner MD [facility] CPT-51348 Level 3 Est. Patient 09:56:19 CDT Connie Reyes JOY [facility] CPT-18717 Level 3 Est. Patient 12:31:18 CORPORATE TRAINER Jensen Santiago MD [facility] CPT-33334 Level 3 Est. Patient 10:35:02 CORPORATE TRAINER Cayetano Skinner MD [facility] CPT-77180 Level 3 Est. Patient 12:50:08 CORPORATE TRAINER Cayetano Skinner MD [facility] Procedures Code Procedure Name Date Entry Date Standard Description CPT-67709 Abx/Therapy Injection 09:57:17 CDT CPT-J1885 Toradol 30 mg (Ketorolac) 09:49:34 CDT CPT-73841 Venipuncture Draw Fee 10:10:37 CDT CPT-22834 [facility] 10:06:58 CDT CPT-79824 Bladder Scan 19:49:06 CORPORATE TRAINER CPT-08079 Spec Collection and Handling Fee 11:57:40 CDT CPT-J1020 Depo Medrol 60 mg (Methyl Prednisolone Acetate) 12:03:49 CDT CPT-17291 Abx/Therapy Injection 12:03:48 CDT CPT-J1020 Depo Medrol 60 mg (Methyl Prednisolone Acetate) 09:56:19 CDT CPT-27394 Spec Collection and Handling Fee 12:10:42 CDT CPT-PV Prev. Care Visit 12:10:42 CDT CPT-55632 Administration single or combination vaccine inc oral 16:45:52 CORPORATE TRAINER CPT-34987 Influenza split virus > age 3 16:45:52 CORPORATE TRAINER CPT-67635 Spec Collection and Handling Fee 10:35:02 CORPORATE TRAINER
--- OUTSIDE RECORDS SUMMARY | 2019-04-22 10:33 | XMS REPORT | Clinical Summary ---
Author Author Admin, [place] Organization [employer] Address Unknown Phone Unavailable Allergies, Adverse Reactions, [...] spasm of neck 728.85 Inactive Melinda Baxter [employer] Spasm of muscle BMI 20-20.9 Active Alfa [...] spasm of neck ICD-728.85 Inactive Melinda Yokum [employer] Medication List Medication Instructions Start Date Stop Date Generic Name NDC Status Provider Patient Instruction TRAMADOL HCL 50 MG ORAL TABLET take 1 tab po q6hrs prn pain TRAMADOL HCL 43886669672 Active Alfa Young MD Active CYCLOBENZAPRINE HCL 10 MG ORAL TABLET Take 1 tablet up to 3 times a day as needed for muscle spasms. CYCLOBENZAPRINE HCL 68803901295 No Longer Active Alfa Young MD Active SUBOXONE 8-2 MG SUBLINGUAL FILM 1 1/2 STRIPS QD BUPRENORPHINE HCL-NALOXONE HCL 68361253519 No Longer Active 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 TRAZODONE HCL 100 MG ORAL TABLET 0.5 to 1 po qHS PRN Insomnia TRAZODONE HCL 60938629815 No Longer Active 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 PREDNISONE 20 MG ORAL TABLET 2 tabs daily for 4 days, 1 tab daily for 4 days, 1/2 tab daily for 4 days PREDNISONE 22765339794 No Longer Active 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 ZYRTEC ALLERGY 10 MG ORAL CAPSULE 1 po am CETIRIZINE HCL 75464385808 No Longer Active 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 ZANTAC 150 MG ORAL TABLET 1 tab po q am RANITIDINE HCL 81264906680 No Longer Active 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 TAMIFLU 75 MG ORAL CAPSULE 1 cap PO bid x 5 days OSELTAMIVIR PHOSPHATE 64219425542 No Longer Active Luna Wade APRN Active LUNESTA 1 MG ORAL TABLET 1 po qHS PRN Insomnia ESZOPICLONE 25455805534 No Longer Active Joanne Auguste RMA Active VENLAFAXINE HCL 75 MG ORAL TABLET 1.5 po BID VENLAFAXINE HCL 42115331147 Active Cayetano Skinner MD Active TRAZODONE HCL 100 MG ORAL TABLET 0.5 to 1 po qHS PRN Insomnia TRAZODONE HCL 15935336316 No Longer Active Cayetano Skinner MD Active SERTRALINE HCL 100 MG ORAL TABLET 2 po qd SERTRALINE HCL 18305484744 No Longer Active Cayetano Skinner MD Active MACROBID CAPSULE 1 cap po qd. NITROFURANTOIN MONOHYD MACRO CAPS 57812675267 No Longer Active Kimberly Brown MD Active CIPRO 500 MG ORAL TABLET 1 tablet by mouth twice daily CIPROFLOXACIN HCL 94733997640 No Longer Active Cayetano Skinner MD Active MACROBID 100 MG ORAL CAPSULE Take one by mouth daily NITROFURANTOIN MONOHYD MACRO 05210460191 No Longer Active Kimberly Brown MD Active SUBOXONE 8-2 MG SUBL 2 po qd BUPRENORPHINE HCL-NALOXONE HCL 91920972722 No Longer Active Kimberly Brown MD Active HYDROCORTISONE 2.5 % EXTERNAL CREAM Apply three times a day to affected area HYDROCORTISONE 47716768397 No Longer Active Kimberly Brown MD Active AUGMENTIN 500-125 MG ORAL TABLET Take 1 capsule by mouth three times a day X 10 days AMOXICILLIN-POT CLAVULANATE 22554687658 No Longer Active Connie Reyes APRN Active BACTRIM DS 800-160 MG ORAL TABLET 1 tab by mouth twice daily TRIMETHOPRIM-SULFAMETHOXAZOLE 89754644144 No Longer Active Cayetano Skinner MD Active ZITHROMAX Z-MARTI 250 MG ORAL TABLET 2 today, then 1 daily for 4 days AZITHROMYCIN 30085113583 No Longer Active Jensen Santiago MD Active CETIRIZINE HCL 10 MG ORAL TABLET ONE DAILY CETIRIZINE HCL 43048110209 No Longer Active Jensen Santiago MD Active KLONOPIN 1 MG ORAL TABLET 1/2 tab bid CLONAZEPAM 50713344476 No Longer Active Jensen Santiago MD Active ZOLPIDEM TARTRATE 10 MG ORAL TABLET 1 q hs as needed for sleep ZOLPIDEM TARTRATE 77157652109 No Longer Active Jensen Santiago MD Active CELEXA 40 MG ORAL TABLET Take one by mouth daily CITALOPRAM HYDROBROMIDE 99187558977 No Longer Active Jensen Santiago MD Active AMOXICILLIN 875 MG ORAL TABLET 1 tab by mouth twice daily AMOXICILLIN 90122928689 No Longer Active Cayetano Skinner MD Active FLAGYL 500 MG ORAL TABLET 1 tablet by mouth two times daily METRONIDAZOLE 03987405127 No Longer Active Cayetano Skinner MD Active FLAGYL 500 MG ORAL TABLET 1 tablet by mouth two times daily METRONIDAZOLE 92348304706 No Longer Active Cayetano Skinner MD Active BUSPIRONE HCL 15 MG ORAL TABLET 1/2 PO BID BUSPIRONE HCL 41881875240 No Longer Active Cayetano Skinner MD Active BUSPIRONE HCL 15 MG ORAL TABLET 1/2 PO BID BUSPIRONE HCL 15 MG ORAL TABLET 805784 BUSPIRONE HCL Inactive CELEXA 40 MG ORAL TABLET Take one by mouth daily CELEXA 40 MG ORAL TABLET 407129 CITALOPRAM HYDROBROMIDE Inactive ZOLPIDEM TARTRATE 10 MG ORAL TABLET 1 q hs as needed for sleep ZOLPIDEM TARTRATE 10 MG ORAL TABLET 208672 ZOLPIDEM TARTRATE Inactive KLONOPIN 1 MG ORAL TABLET 1/2 tab bid KLONOPIN 1 MG ORAL TABLET 166167 CLONAZEPAM Inactive CETIRIZINE HCL 10 MG ORAL TABLET ONE DAILY CETIRIZINE HCL 10 MG ORAL TABLET 6045335 CETIRIZINE HCL Inactive HYDROCORTISONE 2.5 % EXTERNAL CREAM Apply three times a day to affected area HYDROCORTISONE 2.5 % EXTERNAL CREAM 235866 HYDROCORTISONE Inactive SUBOXONE 8-2 MG SUBL 2 po qd SUBOXONE 8-2 MG SUBL BUPRENORPHINE HCL-NALOXONE HCL Inactive CIPRO 500 MG ORAL TABLET 1 tablet by mouth twice daily CIPRO 500 MG ORAL TABLET 681249 CIPROFLOXACIN HCL Inactive MACROBID CAPSULE 1 cap po qd. MACROBID CAPSULE NITROFURANTOIN MONOHYD MACRO CAPS Inactive LUNESTA 1 MG ORAL TABLET 1 po qHS PRN Insomnia LUNESTA 1 MG ORAL TABLET 961825 ESZOPICLONE Inactive ZANTAC 150 MG ORAL TABLET 1 tab po q am ZANTAC 150 MG ORAL TABLET 592113 RANITIDINE HCL Inactive ZYRTEC ALLERGY 10 MG ORAL CAPSULE 1 po am ZYRTEC ALLERGY 10 MG ORAL CAPSULE CETIRIZINE HCL Inactive PREDNISONE 20 MG ORAL TABLET 2 tabs daily for 4 days, 1 tab daily for 4 days, 1/2 tab daily for 4 days PREDNISONE 20 MG ORAL TABLET 665337 PREDNISONE Inactive TRAZODONE HCL 100 MG ORAL TABLET 0.5 to 1 po qHS PRN Insomnia TRAZODONE HCL 100 MG ORAL TABLET 584818 TRAZODONE HCL Inactive SUBOXONE 8-2 MG SUBLINGUAL FILM 1 1/2 STRIPS QD SUBOXONE 8-2 MG SUBLINGUAL FILM BUPRENORPHINE HCL-NALOXONE HCL Inactive CYCLOBENZAPRINE HCL 10 MG ORAL TABLET Take 1 tablet up to 3 times a day as needed for muscle spasms. CYCLOBENZAPRINE HCL 10 MG ORAL TABLET 715649 CYCLOBENZAPRINE HCL Inactive FLAGYL 500 MG ORAL TABLET 1 tablet by mouth two times daily FLAGYL 500 MG ORAL TABLET 589043 METRONIDAZOLE Inactive FLAGYL 500 MG ORAL TABLET 1 tablet by mouth two times daily FLAGYL 500 MG ORAL TABLET 687137 METRONIDAZOLE Inactive AMOXICILLIN 875 MG ORAL TABLET 1 tab by mouth twice daily AMOXICILLIN 875 MG ORAL TABLET 469459 AMOXICILLIN Inactive ZITHROMAX Z-MARTI 250 MG ORAL TABLET 2 today, then 1 daily for 4 days ZITHROMAX Z-MARTI 250 MG ORAL TABLET 131770 AZITHROMYCIN Inactive BACTRIM DS 800-160 MG ORAL TABLET 1 tab by mouth twice daily BACTRIM DS 800-160 MG ORAL TABLET 644613 TRIMETHOPRIM-SULFAMETHOXAZOLE Inactive AUGMENTIN 500-125 MG ORAL TABLET Take 1 capsule by mouth three times a day X 10 days AUGMENTIN 500-125 MG ORAL TABLET 096692 AMOXICILLIN- POT CLAVULANATE Inactive MACROBID 100 MG ORAL CAPSULE Take one by mouth daily MACROBID 100 MG ORAL CAPSULE 5684804 NITROFURANTOIN MONOHYD MACRO Inactive TAMIFLU 75 MG ORAL CAPSULE 1 cap PO bid x 5 days TAMIFLU 75 MG ORAL CAPSULE 189229 OSELTAMIVIR PHOSPHATE Inactive Immunizations Vaccine Administration Date Value Standard Description Seasonal influenza vaccine, injectable, containing preservative, for > 3 years old (Afluria, FluLaval, Fluzone, Fluvirin, Fluarix, Agriflu(>=18 yo)) Fluzone (>3 yrs.) [[id number]] Influenza, seasonal, injectable Vital Signs Date Name [...] Measured Encounters Code Encounter Date Provider Facility CPT-76890 Level 3 Est. Patient 14:42:39 TRAIN ANNOUNCER Cayetano Skinner MD [facility] CPT-93195 Level 3 Est. Patient 20:19:49 TRAIN ANNOUNCER Alfa Young MD [facility] CPT-84275 Level 3 Est. Patient 13:56:06 CDT Melinda Baxter [facility] CPT-92219 Level 4 Est. Patient 22:21:42 CDT Dorothy Dovel [facility] CPT-50825 Level 4 Est. Patient 21:18:20 CDT Fadiaina Derrelll [facility] CPT-95104 Level 3 Est. Patient 10:06:58 CDT Dorothy Scottzell [facility] CPT-27709 Level 3 Est. Patient 09:36:26 CDT Dorothy Dovel [facility] CPT-32302 Level 3 Est. Patient 16:55:26 CDT Cayetano Skinner MD [facility] CPT-93026 Level 2 Est. Patient 11:28:42 CDT Kimberly Brown MD [facility]-27636 Level 3 Est. Patient 15:04:35 CDT Cayetano Skinner MD [facility] CPT-67346 Level 3 Est. Patient 15:07:05 TRAIN ANNOUNCER Cayetano Skinner MD [facility] CPT-06356 Level 3 Est. Patient 09:56:19 CDT Connie Reyes JOY [facility] CPT-74580 Level 3 Est. Patient 12:31:18 TRAIN ANNOUNCER Jensen Santiago MD [facility] CPT-94940 Level 3 Est. Patient 10:35:02 TRAIN ANNOUNCER Cayetano Skinner MD [facility] CPT-01655 Level 3 Est. Patient 12:50:08 TRAIN ANNOUNCER Cayetano Skinner MD [facility] Procedures Code Procedure Name Date Entry Date Standard Description CPT-38212 Abx/Therapy Injection 09:57:17 CDT CPT-J1885 Toradol 30 mg (Ketorolac) 09:49:34 CDT CPT-81343 Venipuncture Draw Fee 10:10:37 CDT CPT-32836 [facility] 10:06:58 CDT CPT-91609 Bladder Scan 19:49:06 TRAIN ANNOUNCER CPT-77356 Spec Collection and Handling Fee 11:57:40 CDT CPT-J1020 Depo Medrol 60 mg (Methyl Prednisolone Acetate) 12:03:49 CDT CPT-45694 Abx/Therapy Injection 12:03:48 CDT CPT-J1020 Depo Medrol 60 mg (Methyl Prednisolone Acetate) 09:56:19 CDT CPT-34428 Spec Collection and Handling Fee 12:10:42 CDT CPT-PV Prev. Care Visit 12:10:42 CDT CPT-33843 Administration single or combination vaccine inc oral 16:45:52 TRAIN ANNOUNCER CPT-33152 Influenza split virus > age 3 16:45:52 TRAIN ANNOUNCER CPT-51707 Spec Collection and Handling Fee 10:35:02 TRAIN ANNOUNCER
--- OUTSIDE RECORDS SUMMARY | 2019-04-22 10:34 | XMS REPORT | Clinical Summary ---
Author Author Admin, [facility] Organization [facility] Address Unknown Phone Unavailable Allergies, Adverse Reactions, Alerts Allergy Name Reaction Description Start Date Severity Status Provider No Known Allergies Denise Erickson Conditions or Problems Problem Name Problem Code [...] and obstetric disorders VAGINAL DISCHARGE 623.5 Resolved Cayeatno Skinner MD Leukorrhea, not specified as infective [...] Depressive disorder, not elsewhere classified Pruritus 698.9 Active Fadiaina Lucy TEST CARRIER Unspecified pruritic disorder Urticaria 708.9 Active Jisb Ayala TEST CARRIER Unspecified urticaria Hepatitis C 070.70 Active Casperllvishal Ayala TEST CARRIER Unspecified viral hepatitis C without hepatic coma Muscle spasm of neck 728.85 Inactive Melinda Baxter TEST CARRIER Spasm of muscle BMI 20-20.9 Active Alfa Young MD Body Mass Index between 19-24, adult Contusion of left knee, initial encounter 924.11 Active Alfa Young MD Contusion of knee CERVICAL CANCER ICD-V10.41 Inactive Cayetano Skinner MD [...] Pre-employment exam ICD-V70.5 Inactive Cayetano Skinner MD Muscle spasm of neck ICD-728.85 Inactive Melinda Baxter TEST CARRIER DEPRESSION ICD-311 Inactive Cayetano Skinner MD Medication List Medication Instructions Start Date Stop Date Generic Name [facility] Status Provider Patient Instruction TRAMADOL HCL 50 MG ORAL TABLET take 1 tab po q6hrs prn pain TRAMADOL HCL 16815275069 Active Alfa Young MD Active CYCLOBENZAPRINE HCL 10 MG ORAL TABLET Take 1 tablet up to 3 times a day as needed for muscle spasms. CYCLOBENZAPRINE HCL 40165854528 No Longer Active Alfa Young MD Active SUBOXONE 8-2 MG SUBLINGUAL FILM 1 1/2 STRIPS QD BUPRENORPHINE HCL-NALOXONE HCL 56053761671 No Longer Active Melinda Yokum TEST CARRIER Active TRAZODONE HCL 100 MG ORAL TABLET 0.5 to 1 po qHS PRN Insomnia TRAZODONE HCL 52190922357 No Longer Active Melinda Yokum TEST CARRIER Active PREDNISONE 20 MG ORAL TABLET 2 tabs daily for 4 days, 1 tab daily for 4 days, 1/2 tab daily for 4 days PREDNISONE 82123867318 No Longer Active Melinda Yokum TEST CARRIER Active ZYRTEC ALLERGY 10 MG ORAL CAPSULE 1 po am CETIRIZINE HCL 31540178618 No Longer Active Melinda Yokum TEST CARRIER Active ZANTAC 150 MG ORAL TABLET 1 tab po q am RANITIDINE HCL 91091180409 No Longer Active Melinda Yokum TEST CARRIER Active TAMIFLU 75 MG ORAL CAPSULE 1 cap PO bid x 5 days OSELTAMIVIR PHOSPHATE 36784180359 No Longer Active Luna Mauro TEST CARRIER Active LUNESTA 1 MG ORAL TABLET 1 po qHS PRN Insomnia ESZOPICLONE 90319897675 No Longer Active Joanne Molina RMA Active VENLAFAXINE HCL 75 MG ORAL TABLET 1.5 po BID VENLAFAXINE HCL 75451652831 Active Cayetano Skinner MD Active TRAZODONE HCL 100 MG ORAL TABLET 0.5 to 1 po qHS PRN Insomnia TRAZODONE HCL 93048473402 No Longer Active Cayetano Skinner MD Active SERTRALINE HCL 100 MG ORAL TABLET 2 po qd SERTRALINE HCL 54366701619 No Longer Active Cayetano Skinner MD Active MACROBID CAPSULE 1 cap po qd. NITROFURANTOIN MONOHYD MACRO CAPS 90988304243 No Longer Active Kimberly Brown MD Active CIPRO 500 MG ORAL TABLET 1 tablet by mouth twice daily CIPROFLOXACIN HCL 65246141984 No Longer Active Cayetano Skinner MD Active MACROBID 100 MG ORAL CAPSULE Take one by mouth daily NITROFURANTOIN MONOHYD MACRO 90310233398 No Longer Active Kimberly Brown MD Active SUBOXONE 8-2 MG SUBL 2 po qd BUPRENORPHINE HCL-NALOXONE HCL 64166226970 No Longer Active Kimberly Brown MD Active HYDROCORTISONE 2.5 % EXTERNAL CREAM Apply three times a day to affected area HYDROCORTISONE 43686737529 No Longer Active Kimberly Brown MD Active AUGMENTIN 500-125 MG ORAL TABLET Take 1 capsule by mouth three times a day X 10 days AMOXICILLIN-POT CLAVULANATE 96687977271 No Longer Active Connie Reyes APRN Active BACTRIM DS 800-160 MG ORAL TABLET 1 tab by mouth twice daily TRIMETHOPRIM-SULFAMETHOXAZOLE 92467765307 No Longer Active Cayetano Skinner MD Active ZITHROMAX Z-MARTI 250 MG ORAL TABLET 2 today, then 1 daily for 4 days AZITHROMYCIN 61136732176 No Longer Active Jensen Santiago MD Active CETIRIZINE HCL 10 MG ORAL TABLET ONE DAILY CETIRIZINE HCL 85223290925 No Longer Active Jensen Santiago MD Active KLONOPIN 1 MG ORAL TABLET 1/2 tab bid CLONAZEPAM 74206686707 No Longer Active Jensen Santiago MD Active ZOLPIDEM TARTRATE 10 MG ORAL TABLET 1 q hs as needed for sleep ZOLPIDEM TARTRATE 17780653557 No Longer Active Jensen Santiago MD Active CELEXA 40 MG ORAL TABLET Take one by mouth daily CITALOPRAM HYDROBROMIDE 63480460762 No Longer Active Jensen Santiago MD Active AMOXICILLIN 875 MG ORAL TABLET 1 tab by mouth twice daily AMOXICILLIN 00066144416 No Longer Active Cayetano Skinner MD Active FLAGYL 500 MG ORAL TABLET 1 tablet by mouth two times daily METRONIDAZOLE 02870304726 No Longer Active Cayetano Skinner MD Active FLAGYL 500 MG ORAL TABLET 1 tablet by mouth two times daily METRONIDAZOLE 72568717676 No Longer Active Cayetano Skinner MD Active BUSPIRONE HCL 15 MG ORAL TABLET 1/2 PO BID BUSPIRONE HCL 43053909490 No Longer Active Cayetano Skinner MD Active BUSPIRONE HCL 15 MG ORAL TABLET 1/2 PO BID BUSPIRONE HCL 15 MG ORAL TABLET 428813 BUSPIRONE HCL Inactive CELEXA 40 MG ORAL TABLET Take one by mouth daily CELEXA 40 MG ORAL TABLET 598624 CITALOPRAM HYDROBROMIDE Inactive ZOLPIDEM TARTRATE 10 MG ORAL TABLET 1 q hs as needed for sleep ZOLPIDEM TARTRATE 10 MG ORAL TABLET 127522 ZOLPIDEM TARTRATE Inactive KLONOPIN 1 MG ORAL TABLET 1/2 tab bid KLONOPIN 1 MG ORAL TABLET 613799 CLONAZEPAM Inactive CETIRIZINE HCL 10 MG ORAL TABLET ONE DAILY CETIRIZINE HCL 10 MG ORAL TABLET 7183743 CETIRIZINE HCL Inactive HYDROCORTISONE 2.5 % EXTERNAL CREAM Apply three times a day to affected area HYDROCORTISONE 2.5 % EXTERNAL CREAM 158085 HYDROCORTISONE Inactive SUBOXONE 8-2 MG SUBL 2 po qd SUBOXONE 8-2 MG SUBL BUPRENORPHINE HCL-NALOXONE HCL Inactive CIPRO 500 MG ORAL TABLET 1 tablet by mouth twice daily CIPRO 500 MG ORAL TABLET 203208 CIPROFLOXACIN HCL Inactive MACROBID CAPSULE 1 cap po qd. MACROBID CAPSULE NITROFURANTOIN MONOHYD MACRO CAPS Inactive LUNESTA 1 MG ORAL TABLET 1 po qHS PRN Insomnia LUNESTA 1 MG ORAL TABLET 373193 ESZOPICLONE Inactive ZANTAC 150 MG ORAL TABLET 1 tab po q am ZANTAC 150 MG ORAL TABLET 348169 RANITIDINE HCL Inactive ZYRTEC ALLERGY 10 MG ORAL CAPSULE 1 po am ZYRTEC ALLERGY 10 MG ORAL CAPSULE CETIRIZINE HCL Inactive PREDNISONE 20 MG ORAL TABLET 2 tabs daily for 4 days, 1 tab daily for 4 days, 1/2 tab daily for 4 days PREDNISONE 20 MG ORAL TABLET 685399 PREDNISONE Inactive TRAZODONE HCL 100 MG ORAL TABLET 0.5 to 1 po qHS PRN Insomnia TRAZODONE HCL 100 MG ORAL TABLET 476603 TRAZODONE HCL Inactive SUBOXONE 8-2 MG SUBLINGUAL FILM 1 1/2 STRIPS QD SUBOXONE 8-2 MG SUBLINGUAL FILM BUPRENORPHINE HCL-NALOXONE HCL Inactive CYCLOBENZAPRINE HCL 10 MG ORAL TABLET Take 1 tablet up to 3 times a day as needed for muscle spasms. CYCLOBENZAPRINE HCL 10 MG ORAL TABLET 829887 CYCLOBENZAPRINE HCL Inactive FLAGYL 500 MG ORAL TABLET 1 tablet by mouth two times daily FLAGYL 500 MG ORAL TABLET 045646 METRONIDAZOLE Inactive FLAGYL 500 MG ORAL TABLET 1 tablet by mouth two times daily FLAGYL 500 MG ORAL TABLET 907294 METRONIDAZOLE Inactive AMOXICILLIN 875 MG ORAL TABLET 1 tab by mouth twice daily AMOXICILLIN 875 MG ORAL TABLET 214467 AMOXICILLIN Inactive ZITHROMAX Z-MARTI 250 MG ORAL TABLET 2 today, then 1 daily for 4 days ZITHROMAX Z-MARTI 250 MG ORAL TABLET 122297 AZITHROMYCIN Inactive BACTRIM DS 800-160 MG ORAL TABLET 1 tab by mouth twice daily BACTRIM DS 800-160 MG ORAL TABLET 602998 TRIMETHOPRIM-SULFAMETHOXAZOLE Inactive AUGMENTIN 500-125 MG ORAL TABLET Take 1 capsule by mouth three times a day X 10 days AUGMENTIN 500-125 MG ORAL TABLET 256166 AMOXICILLIN- POT CLAVULANATE Inactive MACROBID 100 MG ORAL CAPSULE Take one by mouth daily MACROBID 100 MG ORAL CAPSULE 3296258 NITROFURANTOIN MONOHYD MACRO Inactive TAMIFLU 75 MG ORAL CAPSULE 1 cap PO bid x 5 days TAMIFLU 75 MG ORAL CAPSULE 665737 OSELTAMIVIR PHOSPHATE Inactive Immunizations Vaccine Administration Date Value Standard Description Seasonal influenza vaccine, injectable, containing preservative, for > 3 years old (Afluria, FluLaval, Fluzone, Fluvirin, Fluarix, Agriflu(>=18 yo)) Fluzone (>3 yrs.) [[id number]] Influenza, seasonal, injectable Vital Signs Date Name Value Unit Range Description blood pressure, diastolic 90 mm[Hg] BP montejo [...] Measured Encounters Code Encounter Date Provider Facility CPT-45645 Level 3 Est. Patient 20:19:49 [employer] INST[employer]ER Alfa Young MD [facility] CPT-76813 Level 3 Est. Patient 13:56:06 CDT Melinda Baxter [facility] CPT-52988 Level 4 Est. Patient 22:21:42 CDT Dorothy Ayala [facility] CPT-59664 Level 4 Est. Patient 21:18:20 CDT Dorothy Dovel [facility] CPT-16546 Level 3 Est. Patient 10:06:58 CDT Dorothy Ayala [facility] CPT-74628 Level 3 Est. Patient 09:36:26 CDT Dorothy Ayala [facility] CPT-91788 Level 3 Est. Patient 16:55:26 CDT Cayetano Skinner MD [facility] CPT-98567 Level 2 Est. Patient 11:28:42 CDT Kimberly Brown MD [facility] CPT-51019 Level 3 Est. Patient 15:04:35 CDT Cayetano Skinner MD [facility] CPT-06480 Level 3 Est. Patient 15:07:05 [employer] IN[employer]ER Cayetano Skinner MD [facility] CPT-41170 Level 3 Est. Patient 09:56:19 CDT Connie Reyes [facility] CPT-53077 Level 3 Est. 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 Patient 10:35:02 STEEL [employer] INST[employer]ER Cayetano Skinner MD [facility] CPT-30038 Level 3 Est. 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 Cayetano Skinner MD [facility] Procedures Code Procedure Name Date Entry Date Standard Description CPT-90079 Abx/Therapy Injection 09:57:17 CDT CPT-J1885 Toradol 30 mg (Ketorolac) 09:49:34 CDT CPT-86146 Venipuncture Draw Fee 10:10:37 CDT CPT-42103 [facility] 10:06:58 CDT CPT-52113 Bladder Scan 19:49:06 [employer] IN[employer] CPT-86998 Spec Collection and Handling Fee 11:57:40 CDT CPT-J1020 Depo Medrol 60 mg (Methyl Prednisolone Acetate) 12:03:49 CDT CPT-61812 Abx/Therapy Injection 12:03:48 CDT CPT-J1020 Depo Medrol 60 mg (Methyl Prednisolone Acetate) 09:56:19 CDT CPT-66447 Spec Collection and Handling Fee 12:10:42 CDT CPT-PV Prev. 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
--- OUTSIDE RECORDS SUMMARY | 2019-04-22 10:34 | XMS REPORT | Clinical Summary ---
Author Author Admin, [place] Organization [facility] Address Unknown Phone Unavailable Allergies, Adverse Reactions, [...] disorder, not elsewhere classified Pruritus 698.9 Active Dorothy Ayala [employer]OVING DEPARTMENT END FINDER Unspecified pruritic disorder Urticaria 708.9 Active Jisb Ayala [employer] END FINDER Unspecified urticaria Hepatitis C 070.70 Active Dorothy Ayala [employer] END FINDER Unspecified viral hepatitis C without hepatic coma Muscle spasm of neck 728.85 Inactive Melinda Baxter [employer] END FINDER Spasm of muscle BMI 20-20.9 Active Alfa Young MD Body Mass Index between 19-24, adult Contusion of left knee, initial encounter 924.11 Active Alfa Young MD Contusion of knee DEPRESSION ICD-311 Inactive Cayetano Skinner MD CERVICAL [...] spasm of neck ICD-728.85 Inactive Melinda Yokum [employer] END FINDER Medication List Medication Instructions Start Date Stop Date Generic Name [facility] Status Provider Patient Instruction TRAMADOL HCL 50 MG ORAL TABLET take 1 tab po q6hrs prn pain TRAMADOL HCL 84053817730 Active Alfa Young MD Active CYCLOBENZAPRINE HCL 10 MG ORAL TABLET Take 1 tablet up to 3 times a day as needed for muscle spasms. CYCLOBENZAPRINE HCL 23860872567 No Longer Active Alfa Young MD Active SUBOXONE 8-2 MG SUBLINGUAL FILM 1 1/2 STRIPS QD BUPRENORPHINE HCL-NALOXONE HCL 49381349582 No Longer Active Melinda Yokum [employer] END FINDER Active TRAZODONE HCL 100 MG ORAL TABLET 0.5 to 1 po qHS PRN Insomnia TRAZODONE HCL 94616043404 No Longer Active Melinda Yokum [employer] END FINDER Active PREDNISONE 20 MG ORAL TABLET 2 tabs daily for 4 days, 1 tab daily for 4 days, 1/2 tab daily for 4 days PREDNISONE 58762563658 No Longer Active Melinda Yokum [employer] END FINDER Active ZYRTEC ALLERGY 10 MG ORAL CAPSULE 1 po am CETIRIZINE HCL 67173082051 No Longer Active Melinda Yokum [employer]ING DE[employer]MENT END FINDER Active ZANTAC 150 MG ORAL TABLET 1 tab po q am RANITIDINE HCL 38970307215 No Longer Active Melinda Yokum [employer]ING DEPARTMENT END FINDER Active TAMIFLU 75 MG ORAL CAPSULE 1 cap PO bid x 5 days OSELTAMIVIR PHOSPHATE 94980358860 No Longer Active Luna Jones [employer]ING DEPARTMENT END FINDER Active LUNESTA 1 MG ORAL TABLET 1 po qHS PRN Insomnia ESZOPICLONE 95316977416 No Longer Active Joanne Molina RMA Active VENLAFAXINE HCL 75 MG ORAL TABLET 1.5 po BID VENLAFAXINE HCL 07239446815 Active Cayetano Skinner MD Active TRAZODONE HCL 100 MG ORAL TABLET 0.5 to 1 po qHS PRN Insomnia TRAZODONE HCL 00730674650 No Longer Active Cayetano Skinner MD Active SERTRALINE HCL 100 MG ORAL TABLET 2 po qd SERTRALINE HCL 48817801525 No Longer Active Cayetano Skinner MD Active MACROBID CAPSULE 1 cap po qd. NITROFURANTOIN MONOHYD MACRO CAPS 46425126689 No Longer Active Kimberly Brown MD Active CIPRO 500 MG ORAL TABLET 1 tablet by mouth twice daily CIPROFLOXACIN HCL 51508635552 No Longer Active Cayetano Skinner MD Active MACROBID 100 MG ORAL CAPSULE Take one by mouth daily NITROFURANTOIN MONOHYD MACRO 64687921969 No Longer Active Kimberly Brown MD Active SUBOXONE 8-2 MG SUBL 2 po qd BUPRENORPHINE HCL-NALOXONE HCL 60402601592 No Longer Active Kimberly Brown MD Active HYDROCORTISONE 2.5 % EXTERNAL CREAM Apply three times a day to affected area HYDROCORTISONE 22537983012 No Longer Active Kimberly Brown MD Active AUGMENTIN 500-125 MG ORAL TABLET Take 1 capsule by mouth three times a day X 10 days AMOXICILLIN-POT CLAVULANATE 89979891497 No Longer Active Connie Reyes APRN Active BACTRIM DS 800-160 MG ORAL TABLET 1 tab by mouth twice daily TRIMETHOPRIM-SULFAMETHOXAZOLE 93123832068 No Longer Active Cayetano Skinner MD Active ZITHROMAX Z-MARTI 250 MG ORAL TABLET 2 today, then 1 daily for 4 days AZITHROMYCIN 74398341464 No Longer Active Jensen Santiago MD Active CETIRIZINE HCL 10 MG ORAL TABLET ONE DAILY CETIRIZINE HCL 20626258621 No Longer Active Jensen Santiago MD Active KLONOPIN 1 MG ORAL TABLET 1/2 tab bid CLONAZEPAM 64492155935 No Longer Active Jensen Santiago MD Active ZOLPIDEM TARTRATE 10 MG ORAL TABLET 1 q hs as needed for sleep ZOLPIDEM TARTRATE 45532099143 No Longer Active Jensen Santiago MD Active CELEXA 40 MG ORAL TABLET Take one by mouth daily CITALOPRAM HYDROBROMIDE 09422625150 No Longer Active Jensen Santiago MD Active AMOXICILLIN 875 MG ORAL TABLET 1 tab by mouth twice daily AMOXICILLIN 72547292297 No Longer Active Cayetano Skinner MD Active FLAGYL 500 MG ORAL TABLET 1 tablet by mouth two times daily METRONIDAZOLE 76604365327 No Longer Active Cayetano Skinner MD Active FLAGYL 500 MG ORAL TABLET 1 tablet by mouth two times daily METRONIDAZOLE 65820102517 No Longer Active Cayetano Skinner MD Active BUSPIRONE HCL 15 MG ORAL TABLET 1/2 PO BID BUSPIRONE HCL 50177148993 No Longer Active Cayetano Skinner MD Active BUSPIRONE HCL 15 MG ORAL TABLET 1/2 PO BID BUSPIRONE HCL 15 MG ORAL TABLET 163543 BUSPIRONE HCL Inactive CELEXA 40 MG ORAL TABLET Take one by mouth daily CELEXA 40 MG ORAL TABLET 028388 CITALOPRAM HYDROBROMIDE Inactive ZOLPIDEM TARTRATE 10 MG ORAL TABLET 1 q hs as needed for sleep ZOLPIDEM TARTRATE 10 MG ORAL TABLET 333850 ZOLPIDEM TARTRATE Inactive KLONOPIN 1 MG ORAL TABLET 1/2 tab bid KLONOPIN 1 MG ORAL TABLET 373257 CLONAZEPAM Inactive CETIRIZINE HCL 10 MG ORAL TABLET ONE DAILY CETIRIZINE HCL 10 MG ORAL TABLET 6194175 CETIRIZINE HCL Inactive HYDROCORTISONE 2.5 % EXTERNAL CREAM Apply three times a day to affected area HYDROCORTISONE 2.5 % EXTERNAL CREAM 594189 HYDROCORTISONE Inactive SUBOXONE 8-2 MG SUBL 2 po qd SUBOXONE 8-2 MG SUBL BUPRENORPHINE HCL-NALOXONE HCL Inactive CIPRO 500 MG ORAL TABLET 1 tablet by mouth twice daily CIPRO 500 MG ORAL TABLET 497223 CIPROFLOXACIN HCL Inactive MACROBID CAPSULE 1 cap po qd. MACROBID CAPSULE NITROFURANTOIN MONOHYD MACRO CAPS Inactive LUNESTA 1 MG ORAL TABLET 1 po qHS PRN Insomnia LUNESTA 1 MG ORAL TABLET 804804 ESZOPICLONE Inactive ZANTAC 150 MG ORAL TABLET 1 tab po q am ZANTAC 150 MG ORAL TABLET 957901 RANITIDINE HCL Inactive ZYRTEC ALLERGY 10 MG ORAL CAPSULE 1 po am ZYRTEC ALLERGY 10 MG ORAL CAPSULE CETIRIZINE HCL Inactive PREDNISONE 20 MG ORAL TABLET 2 tabs daily for 4 days, 1 tab daily for 4 days, 1/2 tab daily for 4 days PREDNISONE 20 MG ORAL TABLET 972897 PREDNISONE Inactive TRAZODONE HCL 100 MG ORAL TABLET 0.5 to 1 po qHS PRN Insomnia TRAZODONE HCL 100 MG ORAL TABLET 515120 TRAZODONE HCL Inactive SUBOXONE 8-2 MG SUBLINGUAL FILM 1 1/2 STRIPS QD SUBOXONE 8-2 MG SUBLINGUAL FILM BUPRENORPHINE HCL-NALOXONE HCL Inactive CYCLOBENZAPRINE HCL 10 MG ORAL TABLET Take 1 tablet up to 3 times a day as needed for muscle spasms. CYCLOBENZAPRINE HCL 10 MG ORAL TABLET 329510 CYCLOBENZAPRINE HCL Inactive FLAGYL 500 MG ORAL TABLET 1 tablet by mouth two times daily FLAGYL 500 MG ORAL TABLET 165198 METRONIDAZOLE Inactive FLAGYL 500 MG ORAL TABLET 1 tablet by mouth two times daily FLAGYL 500 MG ORAL TABLET 810795 METRONIDAZOLE Inactive AMOXICILLIN 875 MG ORAL TABLET 1 tab by mouth twice daily AMOXICILLIN 875 MG ORAL TABLET 817284 AMOXICILLIN Inactive ZITHROMAX Z-MARTI 250 MG ORAL TABLET 2 today, then 1 daily for 4 days ZITHROMAX Z-MARTI 250 MG ORAL TABLET 386317 AZITHROMYCIN Inactive BACTRIM DS 800-160 MG ORAL TABLET 1 tab by mouth twice daily BACTRIM DS 800-160 MG ORAL TABLET 499541 TRIMETHOPRIM-SULFAMETHOXAZOLE Inactive AUGMENTIN 500-125 MG ORAL TABLET Take 1 capsule by mouth three times a day X 10 days AUGMENTIN 500-125 MG ORAL TABLET 814548 AMOXICILLIN- POT CLAVULANATE Inactive MACROBID 100 MG ORAL CAPSULE Take one by mouth daily MACROBID 100 MG ORAL CAPSULE 0920068 NITROFURANTOIN MONOHYD MACRO Inactive TAMIFLU 75 MG ORAL CAPSULE 1 cap PO bid x 5 days TAMIFLU 75 MG ORAL CAPSULE 925165 OSELTAMIVIR PHOSPHATE Inactive Immunizations Vaccine Administration Date Value Standard Description Seasonal influenza vaccine, injectable, containing preservative, for > 3 years old (Afluria, FluLaval, Fluzone, Fluvirin, Fluarix, Agriflu(>=18 yo)) Fluzone (>3 yrs.) [[id number]] Influenza, seasonal, injectable Vital Signs Date Name [...] Measured Encounters Code Encounter Date Provider Facility CPT-92115 Level 3 Est. 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 CPT-95993 Level 3 Est. Patient 13:56:06 CDT Melinda Baxter [facility] CPT-03708 Level 4 Est. Patient 22:21:42 CDT Dorothy Ayala [facility] CPT-25374 Level 4 Est. Patient 21:18:20 CDT Dorothy Dovel [facility] CPT-26520 Level 3 Est. Patient 10:06:58 CDT Dorothy Ayala [facility] CPT-87480 Level 3 Est. Patient 09:36:26 CDT Dorothy Ayala [facility] CPT-82351 Level 3 Est. Patient 16:55:26 CDT Cayetano Skinner MD [facility] CPT-90531 Level 2 Est. Patient 11:28:42 CDT Kimberly Brown MD [facility] CPT-56448 Level 3 Est. Patient 15:04:35 CDT Cayetano Skinner MD [facility] CPT-34533 Level 3 Est. Patient 15:07:05 UNISHEAR OPERATOR Cayetano Skinner MD [facility] CPT-66877 Level 3 Est. Patient 09:56:19 CDT Connie Reyes [facility] CPT-31260 Level 3 Est. Patient 12:31:18 UNISHEAR OPERATOR Jensen Santiago MD [facility] CPT-49322 Level 3 Est. Patient 10:35:02 UNISHEAR OPERATOR Cayetano Skinner MD [facility] CPT-98066 Level 3 Est. Patient 12:50:08 UNISHEAR OPERATOR Cayetano Skinner MD [facility] Procedures Code Procedure Name Date Entry Date Standard Description CPT-93868 Abx/Therapy Injection 09:57:17 CDT CPT-J1885 Toradol 30 mg (Ketorolac) 09:49:34 CDT CPT-85615 Venipuncture Draw Fee 10:10:37 CDT CPT-95085 [facility] 10:06:58 CDT CPT-97161 Bladder Scan 19:49:06 UNISHEAR OPERATOR CPT-46423 Spec Collection and Handling Fee 11:57:40 CDT CPT-J1020 Depo Medrol 60 mg (Methyl Prednisolone Acetate) 12:03:49 CDT CPT-23457 Abx/Therapy Injection 12:03:48 CDT CPT-J1020 Depo Medrol 60 mg (Methyl Prednisolone Acetate) 09:56:19 CDT CPT-00407 Spec Collection and Handling Fee 12:10:42 CDT CPT-PV Prev. Care Visit 12:10:42 CDT CPT-29617 Administration single or combination vaccine inc oral 16:45:52 UNISHEAR OPERATOR CPT-06667 Influenza split virus > age 3 16:45:52 UNISHEAR OPERATOR CPT-82712 Spec Collection and Handling Fee 10:35:02 UNISHEAR OPERATOR
--- OUTSIDE RECORDS SUMMARY | 2019-04-22 10:35 | XMS REPORT | Clinical Summary ---
Author Author Admin, [facility] Organization [facility] Address Unknown Phone Unavailable Allergies, Adverse [...] MD Dysuria Sinusitis, acute 461.9 Resolved Cayetano Skinnre MD Acute sinusitis, unspecified Pre-employment exam V70.5 Resolved Cayetano Skinner MD Health examination of defined subpopulations U T I-Recurrent Active Kimberly Brown MD Urinary tract infection, site not specified Depression 311 Active Cayetano Skinner MD Depressive disorder, not elsewhere classified Pruritus 698.9 Active Dorothy Ayala OBSTETRICS SPECIALIST Unspecified pruritic disorder Urticaria 708.9 Active Jisb Ayala OBSTETRICS SPECIALIST Unspecified urticaria Hepatitis C 070.70 Active Dorothy Ayala OBSTETRICS SPECIALIST Unspecified viral hepatitis C without hepatic coma Muscle spasm of neck 728.85 Inactive Melinda Baxter OBSTETRICS SPECIALIST Spasm of muscle BMI 20-20.9 Active Alfa [...] spasm of neck ICD-728.85 Inactive Melinda Yokum OBSTETRICS SPECIALIST Medication List Medication Instructions Start Date Stop Date Generic Name [facility] Status Provider Patient Instruction TRAMADOL HCL 50 MG ORAL TABLET take 1 tab po q6hrs prn pain TRAMADOL HCL 62769731101 Active Alfa Young MD Active CYCLOBENZAPRINE HCL 10 MG ORAL TABLET Take 1 tablet up to 3 times a day as needed for muscle spasms. CYCLOBENZAPRINE HCL 49218703709 No Longer Active Alfa Young MD Active SUBOXONE 8-2 MG SUBLINGUAL FILM 1 1/2 STRIPS QD BUPRENORPHINE HCL-NALOXONE HCL 91106156253 No Longer Active Melinda Yokum OBSTETRICS SPECIALIST Active TRAZODONE HCL 100 MG ORAL TABLET 0.5 to 1 po qHS PRN Insomnia TRAZODONE HCL 84647113388 No Longer Active Melinda Yokum OBSTETRICS SPECIALIST Active PREDNISONE 20 MG ORAL TABLET 2 tabs daily for 4 days, 1 tab daily for 4 days, 1/2 tab daily for 4 days PREDNISONE 35248558016 No Longer Active Melinda Yokum OBSTETRICS SPECIALIST Active ZYRTEC ALLERGY 10 MG ORAL CAPSULE 1 po am CETIRIZINE HCL 17263255627 No Longer Active Melinda Yokum OBSTETRICS SPECIALIST Active ZANTAC 150 MG ORAL TABLET 1 tab po q am RANITIDINE HCL 93276623177 No Longer Active Melinda Yokum OBSTETRICS SPECIALIST Active TAMIFLU 75 MG ORAL CAPSULE 1 cap PO bid x 5 days OSELTAMIVIR PHOSPHATE 60109127968 No Longer Active Luna Mauro OBSTETRICS SPECIALIST Active LUNESTA 1 MG ORAL TABLET 1 po qHS PRN Insomnia ESZOPICLONE 15576408529 No Longer Active Joanne Molina RMA Active VENLAFAXINE HCL 75 MG ORAL TABLET 1.5 po BID VENLAFAXINE HCL 34636535051 Active Cayetano Skinner MD Active TRAZODONE HCL 100 MG ORAL TABLET 0.5 to 1 po qHS PRN Insomnia TRAZODONE HCL 32391570660 No Longer Active Cayetano Skinner MD Active SERTRALINE HCL 100 MG ORAL TABLET 2 po qd SERTRALINE HCL 21206307517 No Longer Active Cayetano Skinner MD Active MACROBID CAPSULE 1 cap po qd. NITROFURANTOIN MONOHYD MACRO CAPS 94318934559 No Longer Active Kimberly Brown MD Active CIPRO 500 MG ORAL TABLET 1 tablet by mouth twice daily CIPROFLOXACIN HCL 40357180876 No Longer Active Cayetano Skinner MD Active MACROBID 100 MG ORAL CAPSULE Take one by mouth daily NITROFURANTOIN MONOHYD MACRO 98918147925 No Longer Active Kimberly Brown MD Active SUBOXONE 8-2 MG SUBL 2 po qd BUPRENORPHINE HCL-NALOXONE HCL 13059522721 No Longer Active Kimberly Brown MD Active HYDROCORTISONE 2.5 % EXTERNAL CREAM Apply three times a day to affected area HYDROCORTISONE 88370266747 No Longer Active Kimberly Brown MD Active AUGMENTIN 500-125 MG ORAL TABLET Take 1 capsule by mouth three times a day X 10 days AMOXICILLIN-POT CLAVULANATE 07228392502 No Longer Active Connie Reyes APRN Active BACTRIM DS 800-160 MG ORAL TABLET 1 tab by mouth twice daily TRIMETHOPRIM-SULFAMETHOXAZOLE 56795586161 No Longer Active Cayetano Skinner MD Active ZITHROMAX Z-MARTI 250 MG ORAL TABLET 2 today, then 1 daily for 4 days AZITHROMYCIN 80697893723 No Longer Active Jensen Santiago MD Active CETIRIZINE HCL 10 MG ORAL TABLET ONE DAILY CETIRIZINE HCL 73022316477 No Longer Active Jensen Santiago MD Active KLONOPIN 1 MG ORAL TABLET 1/2 tab bid CLONAZEPAM 77710276322 No Longer Active Jensen Santiago MD Active ZOLPIDEM TARTRATE 10 MG ORAL TABLET 1 q hs as needed for sleep ZOLPIDEM TARTRATE 92660717573 No Longer Active Jensen Santiago MD Active CELEXA 40 MG ORAL TABLET Take one by mouth daily CITALOPRAM HYDROBROMIDE 72519708953 No Longer Active Jensen Santiago MD Active AMOXICILLIN 875 MG ORAL TABLET 1 tab by mouth twice daily AMOXICILLIN 95697831196 No Longer Active Cayetano Skinner MD Active FLAGYL 500 MG ORAL TABLET 1 tablet by mouth two times daily METRONIDAZOLE 42593878713 No Longer Active Cayetano Skinner MD Active FLAGYL 500 MG ORAL TABLET 1 tablet by mouth two times daily METRONIDAZOLE 20048618967 No Longer Active Cayetano Skinner MD Active BUSPIRONE HCL 15 MG ORAL TABLET 1/2 PO BID BUSPIRONE HCL 73791210704 No Longer Active Cayetano Skinner MD Active BUSPIRONE HCL 15 MG ORAL TABLET 1/2 PO BID BUSPIRONE HCL 15 MG ORAL TABLET 968630 BUSPIRONE HCL Inactive CELEXA 40 MG ORAL TABLET Take one by mouth daily CELEXA 40 MG ORAL TABLET 527054 CITALOPRAM HYDROBROMIDE Inactive ZOLPIDEM TARTRATE 10 MG ORAL TABLET 1 q hs as needed for sleep ZOLPIDEM TARTRATE 10 MG ORAL TABLET 205448 ZOLPIDEM TARTRATE Inactive KLONOPIN 1 MG ORAL TABLET 1/2 tab bid KLONOPIN 1 MG ORAL TABLET 051956 CLONAZEPAM Inactive CETIRIZINE HCL 10 MG ORAL TABLET ONE DAILY CETIRIZINE HCL 10 MG ORAL TABLET 9481502 CETIRIZINE HCL Inactive HYDROCORTISONE 2.5 % EXTERNAL CREAM Apply three times a day to affected area HYDROCORTISONE 2.5 % EXTERNAL CREAM 283272 HYDROCORTISONE Inactive SUBOXONE 8-2 MG SUBL 2 po qd SUBOXONE 8-2 MG SUBL BUPRENORPHINE HCL-NALOXONE HCL Inactive CIPRO 500 MG ORAL TABLET 1 tablet by mouth twice daily CIPRO 500 MG ORAL TABLET 256237 CIPROFLOXACIN HCL Inactive MACROBID CAPSULE 1 cap po qd. MACROBID CAPSULE NITROFURANTOIN MONOHYD MACRO CAPS Inactive LUNESTA 1 MG ORAL TABLET 1 po qHS PRN Insomnia LUNESTA 1 MG ORAL TABLET 309322 ESZOPICLONE Inactive ZANTAC 150 MG ORAL TABLET 1 tab po q am ZANTAC 150 MG ORAL TABLET 590272 RANITIDINE HCL Inactive ZYRTEC ALLERGY 10 MG ORAL CAPSULE 1 po am ZYRTEC ALLERGY 10 MG ORAL CAPSULE CETIRIZINE HCL Inactive PREDNISONE 20 MG ORAL TABLET 2 tabs daily for 4 days, 1 tab daily for 4 days, 1/2 tab daily for 4 days PREDNISONE 20 MG ORAL TABLET 374605 PREDNISONE Inactive TRAZODONE HCL 100 MG ORAL TABLET 0.5 to 1 po qHS PRN Insomnia TRAZODONE HCL 100 MG ORAL TABLET 705313 TRAZODONE HCL Inactive SUBOXONE 8-2 MG SUBLINGUAL FILM 1 1/2 STRIPS QD SUBOXONE 8-2 MG SUBLINGUAL FILM BUPRENORPHINE HCL-NALOXONE HCL Inactive CYCLOBENZAPRINE HCL 10 MG ORAL TABLET Take 1 tablet up to 3 times a day as needed for muscle spasms. CYCLOBENZAPRINE HCL 10 MG ORAL TABLET 269421 CYCLOBENZAPRINE HCL Inactive FLAGYL 500 MG ORAL TABLET 1 tablet by mouth two times daily FLAGYL 500 MG ORAL TABLET 393305 METRONIDAZOLE Inactive FLAGYL 500 MG ORAL TABLET 1 tablet by mouth two times daily FLAGYL 500 MG ORAL TABLET 052363 METRONIDAZOLE Inactive AMOXICILLIN 875 MG ORAL TABLET 1 tab by mouth twice daily AMOXICILLIN 875 MG ORAL TABLET 067832 AMOXICILLIN Inactive ZITHROMAX Z-MARTI 250 MG ORAL TABLET 2 today, then 1 daily for 4 days ZITHROMAX Z-MARTI 250 MG ORAL TABLET 340036 AZITHROMYCIN Inactive BACTRIM DS 800-160 MG ORAL TABLET 1 tab by mouth twice daily BACTRIM DS 800-160 MG ORAL TABLET 761545 TRIMETHOPRIM-SULFAMETHOXAZOLE Inactive AUGMENTIN 500-125 MG ORAL TABLET Take 1 capsule by mouth three times a day X 10 days AUGMENTIN 500-125 MG ORAL TABLET 213192 AMOXICILLIN- POT CLAVULANATE Inactive MACROBID 100 MG ORAL CAPSULE Take one by mouth daily MACROBID 100 MG ORAL CAPSULE 0280752 NITROFURANTOIN MONOHYD MACRO Inactive TAMIFLU 75 MG ORAL CAPSULE 1 cap PO bid x 5 days TAMIFLU 75 MG ORAL CAPSULE 405051 OSELTAMIVIR PHOSPHATE Inactive Immunizations Vaccine Administration Date Value Standard Description Seasonal influenza vaccine, injectable, containing preservative, for > 3 years old (Afluria, FluLaval, Fluzone, Fluvirin, Fluarix, Agriflu(>=18 yo)) Fluzone (>3 yrs.) [[id number]] Influenza, seasonal, injectable Vital Signs Date Name [...] Measured Encounters Code Encounter Date Provider Facility CPT-91095 Level 3 Est. Patient 20:19:49 CUSTOMER SUCCESS ADVOCATE Alfa Young MD [facility] CPT-49783 Level 3 Est. Patient 13:56:06 CDT Melinda Baxter [facility][note 3] CPT-25192 Level 4 Est. Patient 22:21:42 CDT Dorothy Ayala [facility][note 3] CPT-28749 Level 4 Est. Patient 21:18:20 CDT Dorothy Dovel [facility][note 3] CPT-26033 Level 3 Est. Patient 10:06:58 CDT Dorothy Ayala [facility][note 3] CPT-20975 Level 3 Est. Patient 09:36:26 CDT Dorothy Ayala [facility][note 3] CPT-67498 Level 3 Est. Patient 16:55:26 CDT Cayetano Skinner MD [facility] CPT-93829 Level 2 Est. Patient 11:28:42 CDT Kimberly Brown MD [facility] CPT-79585 Level 3 Est. Patient 15:04:35 CDT Cayetano Skinner MD [facility] CPT-43451 Level 3 Est. Patient 15:07:05 CUSTOMER SUCCESS ADVOCATE Cayetano Skinner MD [facility] CPT-47991 Level 3 Est. Patient 09:56:19 CDT Connie Reyes [facility][note 3] CPT-92108 Level 3 Est. Patient 12:31:18 CUSTOMER SUCCESS ADVOCATE Jensen Santiago MD [facility] CPT-03455 Level 3 Est. Patient 10:35:02 CUSTOMER SUCCESS ADVOCATE Cayetano Skinner MD [facility] CPT-06419 Level 3 Est. Patient 12:50:08 CUSTOMER SUCCESS ADVOCATE Cayetano Skinner MD [facility] Procedures Code Procedure Name Date Entry Date Standard Description CPT-10767 Abx/Therapy Injection 09:57:17 CDT CPT-J1885 Toradol 30 mg (Ketorolac) 09:49:34 CDT CPT-94979 Venipuncture Draw Fee 10:10:37 CDT CPT-80998 [facility] 10:06:58 CDT CPT-26466 Bladder Scan 19:49:06 CUSTOMER SUCCESS ADVOCATE CPT-82727 Spec Collection and Handling Fee 11:57:40 CDT CPT-J1020 Depo Medrol 60 mg (Methyl Prednisolone Acetate) 12:03:49 CDT CPT-45074 Abx/Therapy Injection 12:03:48 CDT CPT-J1020 Depo Medrol 60 mg (Methyl Prednisolone Acetate) 09:56:19 CDT CPT-07810 Spec Collection and Handling Fee 12:10:42 CDT CPT-PV Prev. Care Visit 12:10:42 CDT CPT-05620 Administration single or combination vaccine inc oral 16:45:52 CUSTOMER SUCCESS ADVOCATE CPT-59244 Influenza split virus > age 3 16:45:52 CUSTOMER SUCCESS ADVOCATE CPT-71979 Spec Collection and Handling Fee 10:35:02 CUSTOMER SUCCESS ADVOCATE
--- OUTSIDE RECORDS SUMMARY | 2019-04-22 10:36 | XMS REPORT | Clinical Summary ---
Author Author Admin, [facility] Organization [facility] Address Unknown Phone Unavailable Allergies, Adverse Reactions, Alerts Allergy Name Reaction Description Start Date Severity Status Provider No Known Allergies Gaby Main MA Conditions or Problems Problem Name Problem Code [...] elsewhere classified Pruritus 698.9 Active Dorothy Ayala APRN Unspecified pruritic disorder Urticaria 708.9 Active Dorothy Ayala APRN Unspecified urticaria Hepatitis C 070.70 Active Dorothy Ayala APRN Unspecified viral hepatitis C without hepatic coma Muscle spasm of neck 728.85 Active Melinda Baxter APRN Spasm of muscle DEPRESSION ICD-311 Inactive Cayetano Skinner MD CERVICAL [...] Pre-employment exam ICD-V70.5 Inactive Cayetano Skinner MD Medication List Medication Instructions Start Date Stop Date Generic Name NDC Status Provider Patient Instruction CYCLOBENZAPRINE HCL 10 MG ORAL TABLET Take 1 tablet up to 3 times a day as needed for muscle spasms. CYCLOBENZAPRINE HCL 88269453567 Active Melinda Baxter APRN Active SUBOXONE 8-2 MG SUBLINGUAL FILM 1 1/2 STRIPS QD BUPRENORPHINE HCL-NALOXONE HCL 14898809157 No Longer Active Melinda Yokum ORDER ENTRY SPECIALIST Active TRAZODONE HCL 100 MG ORAL TABLET 0.5 to 1 po qHS PRN Insomnia TRAZODONE HCL 51868517067 No Longer Active Melinda Yokum ORDER ENTRY SPECIALIST Active PREDNISONE 20 MG ORAL TABLET 2 tabs daily for 4 days, 1 tab daily for 4 days, 1/2 tab daily for 4 days PREDNISONE 32968541192 No Longer Active Melinda Yokum ORDER ENTRY SPECIALIST Active ZYRTEC ALLERGY 10 MG ORAL CAPSULE 1 po am CETIRIZINE HCL 09489444699 No Longer Active Melinda Yokum ORDER ENTRY SPECIALIST Active ZANTAC 150 MG ORAL TABLET 1 tab po q am RANITIDINE HCL 25129133884 No Longer Active Melinda Yokum ORDER ENTRY SPECIALIST Active TAMIFLU 75 MG ORAL CAPSULE 1 cap PO bid x 5 days OSELTAMIVIR PHOSPHATE 23050419953 No Longer Active Luna Mauro ORDER ENTRY SPECIALIST Active LUNESTA 1 MG ORAL TABLET 1 po qHS PRN Insomnia ESZOPICLONE 08788146510 No Longer Active Joanne Molina RMA Active VENLAFAXINE HCL 75 MG ORAL TABLET 1.5 po BID VENLAFAXINE HCL 39954020887 Active Cayetano Skinner MD Active TRAZODONE HCL 100 MG ORAL TABLET 0.5 to 1 po qHS PRN Insomnia TRAZODONE HCL 28658215392 No Longer Active Cayetano Skinner MD Active SERTRALINE HCL 100 MG ORAL TABLET 2 po qd SERTRALINE HCL 18720637059 No Longer Active Cayetano Skinner MD Active MACROBID CAPSULE 1 cap po qd. NITROFURANTOIN MONOHYD MACRO CAPS 82558913590 No Longer Active Kimberly Brown MD Active CIPRO 500 MG ORAL TABLET 1 tablet by mouth twice daily CIPROFLOXACIN HCL 54799320126 No Longer Active Cayetano Skinner MD Active MACROBID 100 MG ORAL CAPSULE Take one by mouth daily NITROFURANTOIN MONOHYD MACRO 11330611238 No Longer Active Kimberly Brown MD Active SUBOXONE 8-2 MG SUBL 2 po qd BUPRENORPHINE HCL-NALOXONE HCL 98700071892 No Longer Active Kimberly Brown MD Active HYDROCORTISONE 2.5 % EXTERNAL CREAM Apply three times a day to affected area HYDROCORTISONE 19625806448 No Longer Active Kimberly Brown MD Active AUGMENTIN 500-125 MG ORAL TABLET Take 1 capsule by mouth three times a day X 10 days AMOXICILLIN-POT CLAVULANATE 86072222736 No Longer Active Connie Reyes APRN Active BACTRIM DS 800-160 MG ORAL TABLET 1 tab by mouth twice daily TRIMETHOPRIM-SULFAMETHOXAZOLE 56898221211 No Longer Active Cayetano Skinner MD Active ZITHROMAX Z-MARTI 250 MG ORAL TABLET 2 today, then 1 daily for 4 days AZITHROMYCIN 60699346579 No Longer Active Jensen Santiago MD Active CETIRIZINE HCL 10 MG ORAL TABLET ONE DAILY CETIRIZINE HCL 26805351039 No Longer Active Jensen Santiago MD Active KLONOPIN 1 MG ORAL TABLET 1/2 tab bid CLONAZEPAM 91897969652 No Longer Active Jensen Santiago MD Active ZOLPIDEM TARTRATE 10 MG ORAL TABLET 1 q hs as needed for sleep ZOLPIDEM TARTRATE 62542632259 No Longer Active Jensen Santiago MD Active CELEXA 40 MG ORAL TABLET Take one by mouth daily CITALOPRAM HYDROBROMIDE 88274781924 No Longer Active Jensen Santiago MD Active AMOXICILLIN 875 MG ORAL TABLET 1 tab by mouth twice daily AMOXICILLIN 23365709873 No Longer Active Cayetano Skinner MD Active FLAGYL 500 MG ORAL TABLET 1 tablet by mouth two times daily METRONIDAZOLE 70609539567 No Longer Active Cayetano Skinner MD Active FLAGYL 500 MG ORAL TABLET 1 tablet by mouth two times daily METRONIDAZOLE 39230375085 No Longer Active Cayetano Skinner MD Active BUSPIRONE HCL 15 MG ORAL TABLET 1/2 PO BID BUSPIRONE HCL 25830490443 No Longer Active Cayetano Skinner MD Active BUSPIRONE HCL 15 MG ORAL TABLET 1/2 PO BID BUSPIRONE HCL 15 MG ORAL TABLET 576267 BUSPIRONE HCL Inactive CELEXA 40 MG ORAL TABLET Take one by mouth daily CELEXA 40 MG ORAL TABLET 258614 CITALOPRAM HYDROBROMIDE Inactive ZOLPIDEM TARTRATE 10 MG ORAL TABLET 1 q hs as needed for sleep ZOLPIDEM TARTRATE 10 MG ORAL TABLET 780845 ZOLPIDEM TARTRATE Inactive KLONOPIN 1 MG ORAL TABLET 1/2 tab bid KLONOPIN 1 MG ORAL TABLET 688253 CLONAZEPAM Inactive CETIRIZINE HCL 10 MG ORAL TABLET ONE DAILY CETIRIZINE HCL 10 MG ORAL TABLET 2756969 CETIRIZINE HCL Inactive HYDROCORTISONE 2.5 % EXTERNAL CREAM Apply three times a day to affected area HYDROCORTISONE 2.5 % EXTERNAL CREAM 184870 HYDROCORTISONE Inactive SUBOXONE 8-2 MG SUBL 2 po qd SUBOXONE 8-2 MG SUBL BUPRENORPHINE HCL-NALOXONE HCL Inactive CIPRO 500 MG ORAL TABLET 1 tablet by mouth twice daily CIPRO 500 MG ORAL TABLET 768030 CIPROFLOXACIN HCL Inactive MACROBID CAPSULE 1 cap po qd. MACROBID CAPSULE NITROFURANTOIN MONOHYD MACRO CAPS Inactive LUNESTA 1 MG ORAL TABLET 1 po qHS PRN Insomnia LUNESTA 1 MG ORAL TABLET 573799 ESZOPICLONE Inactive ZANTAC 150 MG ORAL TABLET 1 tab po q am ZANTAC 150 MG ORAL TABLET 093628 RANITIDINE HCL Inactive ZYRTEC ALLERGY 10 MG ORAL CAPSULE 1 po am ZYRTEC ALLERGY 10 MG ORAL CAPSULE CETIRIZINE HCL Inactive PREDNISONE 20 MG ORAL TABLET 2 tabs daily for 4 days, 1 tab daily for 4 days, 1/2 tab daily for 4 days PREDNISONE 20 MG ORAL TABLET 018643 PREDNISONE Inactive TRAZODONE HCL 100 MG ORAL TABLET 0.5 to 1 po qHS PRN Insomnia TRAZODONE HCL 100 MG ORAL TABLET 156390 TRAZODONE HCL Inactive SUBOXONE 8-2 MG SUBLINGUAL FILM 1 1/2 STRIPS QD SUBOXONE 8-2 MG SUBLINGUAL FILM 3696904 BUPRENORPHINE HCL-NALOXONE HCL Inactive FLAGYL 500 MG ORAL TABLET 1 tablet by mouth two times daily FLAGYL 500 MG ORAL TABLET 038596 METRONIDAZOLE Inactive FLAGYL 500 MG ORAL TABLET 1 tablet by mouth two times daily FLAGYL 500 MG ORAL TABLET 539253 METRONIDAZOLE Inactive AMOXICILLIN 875 MG ORAL TABLET 1 tab by mouth twice daily AMOXICILLIN 875 MG ORAL TABLET 626067 AMOXICILLIN Inactive ZITHROMAX Z-MARTI 250 MG ORAL TABLET 2 today, then 1 daily for 4 days ZITHROMAX Z-MARTI 250 MG ORAL TABLET 540691 AZITHROMYCIN Inactive BACTRIM DS 800-160 MG ORAL TABLET 1 tab by mouth twice daily BACTRIM DS 800-160 MG ORAL TABLET 529200 TRIMETHOPRIM-SULFAMETHOXAZOLE Inactive AUGMENTIN 500-125 MG ORAL TABLET Take 1 capsule by mouth three times a day X 10 days AUGMENTIN 500-125 MG ORAL TABLET 679197 AMOXICILLIN- POT CLAVULANATE Inactive MACROBID 100 MG ORAL CAPSULE Take one by mouth daily MACROBID 100 MG ORAL CAPSULE 3649285 NITROFURANTOIN MONOHYD MACRO Inactive TAMIFLU 75 MG ORAL CAPSULE 1 cap PO bid x 5 days TAMIFLU 75 MG ORAL CAPSULE 770613 OSELTAMIVIR PHOSPHATE Inactive Immunizations Vaccine Administration Date Value Standard Description Seasonal influenza vaccine, injectable, containing preservative, for > 3 years old (Afluria, FluLaval, Fluzone, Fluvirin, Fluarix, Agriflu(>=18 yo)) Fluzone (>3 yrs.) [[id number]] Influenza, seasonal, injectable Vital Signs Date Name Value Unit Range Description blood pressure, diastolic, repeated by physician 98 BP montejo blood pressure, diastolic 98 mm[Hg] BP [place]jo blood pressure, systolic, repeated by physician 135 BP sys blood pressure, systolic 135 mm[Hg] BP sys height E&M 65 [in_us] Bdy height pulse rate E&M 87 /min Heart rate temperature E&M 97.8 [degF] Body temperature weight E&M 115.31 [lb_av] Weight Measured blood pressure, diastolic 85 mm[Hg] BP montejo blood pressure, systolic 121 mm[Hg] BP sys height E&M 65 [in_us] Bdy height pulse rate E&M 90 /min Heart rate temperature E&M 98.7 [degF] Body temperature weight E&M 122.5 [lb_av] Weight Measured blood pressure, diastolic 74 mm[Hg] BP montejo blood pressure, systolic 112 mm[Hg] BP sys height E&M 65 [in_us] Bdy height pulse rate E&M 95 /min Heart rate temperature E&M 98 [degF] Body temperature weight E&M 121.5 [lb_av] Weight Measured Diagnostic Results Date Name Value Unit Range Description Lab Report: C-REACTIVE PROTEIN, HIV-1/2 Agn/[place]/31957, Drug Abuse Pnl 10 ... - Chemistry rapid plasma reagin antibody titer NON-REACTIVE NON-REACTIVE Lab Report: C-REACTIVE PROTEIN, HIV-1/2 Agn/[place]/25870, Drug Abuse Pnl 10 ... - Lab chlamydia DNA probe NOT DETECTED NOT DETECTED Lab Report: C-REACTIVE PROTEIN, HIV-1/2 Agn/[place]/07705, Drug Abuse Pnl 10 ... - Microbiology Neisseria gonorrhoeae DNA probe NOT DETECTED NOT DETECTED Lab Report: CBC W/DIFF, Comp. Metabolic Panel, Free Thyroxine (L), Thyro ... - Chemistry sodium, serum 138 mmol/L 225-273 0487/09/12 carbon dioxide, venous blood 29.9 mmol/L 21.0-32.0 potassium, serum 4.2 mmol/L 3.5-5.2 chloride, serum 101 mmol/L 98-107 blood glucose 100 mg/dL 65-110 urea nitrogen, blood 9 mg/dL 7-18 creatinine, serum 0.67 mg/dL 0.60-1.30 alanine aminotransferase (SGPT), serum 23 U/L 12-78 aspartate aminotransferase (SGOT), serum 19 U/L 15-37 calcium, serum 8.8 mg/dL 8.5-10.1 bilirubin, serum, total 0.30 mg/dL 0.00-1.00 thyroxine, serum, free 0.92 ng/dL 0.59-1.17 TSH 1.09 m[iU]/mL 0.36-3.74 Lab Report: CBC W/DIFF, Comp. Metabolic Panel, Free Thyroxine (L), Thyro ... - Hematology leukocyte count, blood 5.7 10^3/MM^3 10*3/mm3 4.6-10.2 neutrophils as percent of blood leukocytes 61.8 % 42.2-75.2 monocytes as percent of blood leukocytes 6.1 % 1.7-9.3 lymphocytes as percent of blood leukocytes 30.0 % 20.5-51.1 erythrocyte (RBC) count 4.32 10^6/MM^3 10*6/mm3 3.80-5.80 hemoglobin, blood 13.3 g/dL 12.0-16.0 hematocrit, blood 40.3 % 37.0-47.0 mean corpuscular volume, RBC 93 fL 80-97 mean corpuscular hemoglobin, RBC 30.8 pg 27.0-31.2 mean corpuscular hemoglobin concentration, RBC 33.0 G/DL % 31.8-35.4 red blood cell distribution width 12.3 % 11.6-14.8 platelet count 329 10^3/MM^3 10*3/mm3 142-424 Lab Report: HEPATITIS PANEL, ACUTE W/REFLE - Chemistry hepatitis B surface antigen NON-REACTIVE NON-REACTIVE Lab Report: UADIP W/MICRO, AUTO - Chemistry protein, total urine random Negative mg/dL Negative RBC, urine, dipstick Negative Negative Lab Report: UADIP W/MICRO, AUTO - Urinalysis urobilinogen, urine, semiquantitative (dipstick) 0.2 E.U./dL Normal leukocyte esterase, urine, by dipstick Negative Negative nitrite, urine, semiquantitative Negative Negative glucose, urine, semiquantitative Negative Negative ketones, urine, by test strip Negative Negative bilirubin, urine Negative Negative urine color Yellow Colorless;Lightyellow;Straw;Yellow appearance, urine Clear Clear specific gravity, urine 1.010 1.000-1.030 pH, urine, semiquantitative 5.5 5.0-8.5 Encounters Code Encounter Date Provider Facility CPT-19777 Level 3 Est. Patient 13:56:06 CDT Melinda Baxter [facility] CPT-69181 Level 4 Est. Patient 22:21:42 CDT Dorothy Ayala [facility] CPT-60728 Level 4 Est. Patient 21:18:20 CDT Dorothy Ayala [facility] CPT-66212 Level 3 Est. Patient 10:06:58 [facility] Level 3 Est. Patient 09:36:26 CDT Dorothy Ayala [facility] CPT-84480 Level 3 Est. Patient 16:55:26 CDT Cayetano Skinner MD [facility] CPT-39724 Level 2 Est. Patient 11:28:42 CDT Kimberly Brown MD [facility] CPT-44416 Level 3 Est. Patient 15:04:35 CDT Cayetano Skinner MD [facility] CPT-56977 Level 3 Est. Patient 15:07:05 BRIGADIER Cayetano Skinner MD [facility] CPT-39049 Level 3 Est. Patient 09:56:19 CDT Connie Reyes [facility] CPT-33078 Level 3 Est. Patient 12:31:18 BRIGADIER Jensen Santiago MD [facility] CPT-33244 Level 3 Est. Patient 10:35:02 BRIGADIER Cayetano Skinner MD [facility] CPT-61286 Level 3 Est. Patient 12:50:08 BRIGADIER Cayetano Skinner MD [facility] Procedures Code Procedure Name Date Entry Date Standard Description CPT-99655 Abx/Therapy Injection 09:57:17 CDT CPT-J1885 Toradol 30 mg (Ketorolac) 09:49:34 CDT CPT-03448 Venipuncture Draw Fee 10:10:37 CDT CPT-97384 [facility] 10:06:58 CDT CPT-45646 Bladder Scan 19:49:06 BRIGADIER CPT-94271 Spec Collection and Handling Fee 11:57:40 CDT CPT-J1020 Depo Medrol 60 mg (Methyl Prednisolone Acetate) 12:03:49 CDT CPT-45687 Abx/Therapy Injection 12:03:48 CDT CPT-J1020 Depo Medrol 60 mg (Methyl Prednisolone Acetate) 09:56:19 CDT CPT-19780 Spec Collection and Handling Fee 12:10:42 CDT CPT-PV Prev. Care Visit 12:10:42 CDT CPT-12909 Administration single or combination vaccine inc oral 16:45:52 BRIGADIER CPT-86841 Influenza split virus > age 3 16:45:52 BRIGADIER CPT-40613 Spec Collection and Handling Fee 10:35:02 BRIGADIER
--- OUTSIDE RECORDS SUMMARY | 2019-04-22 10:36 | XMS REPORT | Clinical Summary ---
Author Author Admin, [place] Organization [employer] Address Unknown Phone Unavailable Allergies, Adverse Reactions, [...] as needed for muscle spasms. CYCLOBENZAPRINE HCL 22069505908 Active Melinda Baxter APRN Active SUBOXONE 8-2 MG SUBLINGUAL FILM 1 1/2 STRIPS QD BUPRENORPHINE HCL-NALOXONE HCL 46428862582 No Longer Active Melinda Yokum SWIMMING POOL SERVICE TECHNICIAN Active TRAZODONE HCL 100 MG ORAL TABLET 0.5 to 1 po qHS PRN Insomnia TRAZODONE HCL 24237567941 No Longer Active Melinda Yokum SWIMMING POOL SERVICE TECHNICIAN Active PREDNISONE 20 MG ORAL TABLET 2 tabs daily for 4 days, 1 tab daily for 4 days, 1/2 tab daily for 4 days PREDNISONE 37290772869 No Longer Active Melinda Yokum SWIMMING POOL SERVICE TECHNICIAN Active ZYRTEC ALLERGY 10 MG ORAL CAPSULE 1 po am CETIRIZINE HCL 77059307171 No Longer Active Melinda Yokum SWIMMING POOL SERVICE TECHNICIAN Active ZANTAC 150 MG ORAL TABLET 1 tab po q am RANITIDINE HCL 64025520385 No Longer Active Melinda Yokum SWIMMING POOL SERVICE TECHNICIAN Active TAMIFLU 75 MG ORAL CAPSULE 1 cap PO bid x 5 days OSELTAMIVIR PHOSPHATE 65308254745 No Longer Active Luna Glades SWIMMING POOL SERVICE TECHNICIAN Active LUNESTA 1 MG ORAL TABLET 1 po qHS PRN Insomnia ESZOPICLONE 58952453603 No Longer Active Joanne Molina RMA Active VENLAFAXINE HCL 75 MG ORAL TABLET 1.5 po BID VENLAFAXINE HCL 41810514452 Active Cayetano Skinner MD Active TRAZODONE HCL 100 MG ORAL TABLET 0.5 to 1 po qHS PRN Insomnia TRAZODONE HCL 71028722905 No Longer Active Cayetano Skinner MD Active SERTRALINE HCL 100 MG ORAL TABLET 2 po qd SERTRALINE HCL 32913477155 No Longer Active Cayetano Skinner MD Active MACROBID CAPSULE 1 cap po qd. NITROFURANTOIN MONOHYD MACRO CAPS 89645097467 No Longer Active Kimberly Brown MD Active CIPRO 500 MG ORAL TABLET 1 tablet by mouth twice daily CIPROFLOXACIN HCL 54625841147 No Longer Active Cayetano Skinner MD Active MACROBID 100 MG ORAL CAPSULE Take one by mouth daily NITROFURANTOIN MONOHYD MACRO 32059382606 No Longer Active Kimberly Brown MD Active SUBOXONE 8-2 MG SUBL 2 po qd BUPRENORPHINE HCL-NALOXONE HCL 33587038981 No Longer Active Kimberly Brown MD Active HYDROCORTISONE 2.5 % EXTERNAL CREAM Apply three times a day to affected area HYDROCORTISONE 33030248783 No Longer Active Kimberly Brown MD Active AUGMENTIN 500-125 MG ORAL TABLET Take 1 capsule by mouth three times a day X 10 days AMOXICILLIN-POT CLAVULANATE 07328835256 No Longer Active Connie Reyes APRN Active BACTRIM DS 800-160 MG ORAL TABLET 1 tab by mouth twice daily TRIMETHOPRIM-SULFAMETHOXAZOLE 22952517339 No Longer Active Cayetano Skinner MD Active ZITHROMAX Z-MARTI 250 MG ORAL TABLET 2 today, then 1 daily for 4 days AZITHROMYCIN 92144562490 No Longer Active Jensen Santiago MD Active CETIRIZINE HCL 10 MG ORAL TABLET ONE DAILY CETIRIZINE HCL 33455646213 No Longer Active Jensen Santiago MD Active KLONOPIN 1 MG ORAL TABLET 1/2 tab bid CLONAZEPAM 39038846004 No Longer Active Jensen Santiago MD Active ZOLPIDEM TARTRATE 10 MG ORAL TABLET 1 q hs as needed for sleep ZOLPIDEM TARTRATE 62286441374 No Longer Active Jensen Santiago MD Active CELEXA 40 MG ORAL TABLET Take one by mouth daily CITALOPRAM HYDROBROMIDE 64583002076 No Longer Active Jensen Santiago MD Active AMOXICILLIN 875 MG ORAL TABLET 1 tab by mouth twice daily AMOXICILLIN 74892053184 No Longer Active Cayetano Skinner MD Active FLAGYL 500 MG ORAL TABLET 1 tablet by mouth two times daily METRONIDAZOLE 36396181079 No Longer Active Cayetano Skinner MD Active FLAGYL 500 MG ORAL TABLET 1 tablet by mouth two times daily METRONIDAZOLE 25374793048 No Longer Active Cayetano Skinner MD Active BUSPIRONE HCL 15 MG ORAL TABLET 1/2 PO BID BUSPIRONE HCL 66078574280 No Longer Active Cayetano Skinner MD Active BUSPIRONE HCL 15 MG ORAL TABLET 1/2 PO BID BUSPIRONE HCL 15 MG ORAL TABLET 141447 BUSPIRONE HCL Inactive CELEXA 40 MG ORAL TABLET Take one by mouth daily CELEXA 40 MG ORAL TABLET 023444 CITALOPRAM HYDROBROMIDE Inactive ZOLPIDEM TARTRATE 10 MG ORAL TABLET 1 q hs as needed for sleep ZOLPIDEM TARTRATE 10 MG ORAL TABLET 399814 ZOLPIDEM TARTRATE Inactive KLONOPIN 1 MG ORAL TABLET 1/2 tab bid KLONOPIN 1 MG ORAL TABLET 184323 CLONAZEPAM Inactive CETIRIZINE HCL 10 MG ORAL TABLET ONE DAILY CETIRIZINE HCL 10 MG ORAL TABLET 7940244 CETIRIZINE HCL Inactive HYDROCORTISONE 2.5 % EXTERNAL CREAM Apply three times a day to affected area HYDROCORTISONE 2.5 % EXTERNAL CREAM 622164 HYDROCORTISONE Inactive SUBOXONE 8-2 MG SUBL 2 po qd SUBOXONE 8-2 MG SUBL BUPRENORPHINE HCL-NALOXONE HCL Inactive CIPRO 500 MG ORAL TABLET 1 tablet by mouth twice daily CIPRO 500 MG ORAL TABLET 804505 CIPROFLOXACIN HCL Inactive MACROBID CAPSULE 1 cap po qd. MACROBID CAPSULE NITROFURANTOIN MONOHYD MACRO CAPS Inactive LUNESTA 1 MG ORAL TABLET 1 po qHS PRN Insomnia LUNESTA 1 MG ORAL TABLET 200715 ESZOPICLONE Inactive ZANTAC 150 MG ORAL TABLET 1 tab po q am ZANTAC 150 MG ORAL TABLET 482325 RANITIDINE HCL Inactive ZYRTEC ALLERGY 10 MG ORAL CAPSULE 1 po am ZYRTEC ALLERGY 10 MG ORAL CAPSULE CETIRIZINE HCL Inactive PREDNISONE 20 MG ORAL TABLET 2 tabs daily for 4 days, 1 tab daily for 4 days, 1/2 tab daily for 4 days PREDNISONE 20 MG ORAL TABLET 381413 PREDNISONE Inactive TRAZODONE HCL 100 MG ORAL TABLET 0.5 to 1 po qHS PRN Insomnia TRAZODONE HCL 100 MG ORAL TABLET 238299 TRAZODONE HCL Inactive SUBOXONE 8-2 MG SUBLINGUAL FILM 1 1/2 STRIPS QD SUBOXONE 8-2 MG SUBLINGUAL FILM 5941741 BUPRENORPHINE HCL-NALOXONE HCL Inactive FLAGYL 500 MG ORAL TABLET 1 tablet by mouth two times daily FLAGYL 500 MG ORAL TABLET 663262 METRONIDAZOLE Inactive FLAGYL 500 MG ORAL TABLET 1 tablet by mouth two times daily FLAGYL 500 MG ORAL TABLET 367143 METRONIDAZOLE Inactive AMOXICILLIN 875 MG ORAL TABLET 1 tab by mouth twice daily AMOXICILLIN 875 MG ORAL TABLET 822629 AMOXICILLIN Inactive ZITHROMAX Z-MARTI 250 MG ORAL TABLET 2 today, then 1 daily for 4 days ZITHROMAX Z-MARTI 250 MG ORAL TABLET 148535 AZITHROMYCIN Inactive BACTRIM DS 800-160 MG ORAL TABLET 1 tab by mouth twice daily BACTRIM DS 800-160 MG ORAL TABLET 939101 TRIMETHOPRIM-SULFAMETHOXAZOLE Inactive AUGMENTIN 500-125 MG ORAL TABLET Take 1 capsule by mouth three times a day X 10 days AUGMENTIN 500-125 MG ORAL TABLET 115414 AMOXICILLIN- POT CLAVULANATE Inactive MACROBID 100 MG ORAL CAPSULE Take one by mouth daily MACROBID 100 MG ORAL CAPSULE 8570096 NITROFURANTOIN MONOHYD MACRO Inactive TAMIFLU 75 MG ORAL CAPSULE 1 cap PO bid x 5 days TAMIFLU 75 MG ORAL CAPSULE 988789 OSELTAMIVIR PHOSPHATE Inactive Immunizations Vaccine Administration Date Value Standard Description Seasonal influenza vaccine, injectable, containing preservative, for > 3 years old (Afluria, FluLaval, Fluzone, Fluvirin, Fluarix, Agriflu(>=18 yo)) Fluzone (>3 yrs.) [[id number]] Influenza, seasonal, injectable Vital Signs Date Name [...] Range Description Lab Report: C-REACTIVE PROTEIN, HIV-1/2 Agn/[place]/25407, Drug Abuse Pnl 10 ... - Chemistry rapid plasma reagin antibody titer NON-REACTIVE NON-REACTIVE Lab Report: C-REACTIVE PROTEIN, HIV-1/2 Agn/[place]/71509, Drug Abuse Pnl 10 ... - Lab chlamydia DNA probe NOT DETECTED NOT DETECTED Lab Report: C-REACTIVE PROTEIN, HIV-1/2 Agn/[place]/32063, Drug Abuse Pnl 10 ... - Microbiology Neisseria gonorrhoeae DNA probe NOT DETECTED NOT DETECTED Lab Report: CBC W/DIFF, Comp. Metabolic Panel, Free Thyroxine (L), Thyro ... - Chemistry sodium, serum 138 mmol/L 525-475 7365/09/12 carbon dioxide, venous blood 29.9 mmol/L 21.0-32.0 [...] 5.0-8.5 Encounters Code Encounter Date Provider Facility CPT-77610 Level 3 Est. Patient 13:56:06 CDT Melinda Baxter [facility] CPT-35132 Level 4 Est. Patient 22:21:42 CDT Dorothy Ayala [facility] CPT-02838 Level 4 Est. Patient 21:18:20 CDT Dorothy Ayala [facility] CPT-43328 Level 3 Est. Patient 10:06:58 [facility] Level 3 Est. Patient 09:36:26 CDT Dorothy Ayala [facility] CPT-95639 Level 3 Est. Patient 16:55:26 CDT Cayetano Skinner MD [facility] CPT-38223 Level 2 Est. Patient 11:28:42 CDT Kimberly Brown MD [facility] CPT-63235 Level 3 Est. Patient 15:04:35 CDT Cayetano Skinner MD [facility] CPT-62907 Level 3 Est. Patient 15:07:05 DUMP OPERATOR Cayetano Skinner MD [facility] CPT-61835 Level 3 Est. Patient 09:56:19 CDT Connie Reyes [facility] CPT-31683 Level 3 Est. Patient 12:31:18 DUMP OPERATOR Jensen Santiago MD [facility] CPT-91677 Level 3 Est. Patient 10:35:02 DUMP OPERATOR Cayetano Skinner MD [facility] CPT-50833 Level 3 Est. Patient 12:50:08 DUMP OPERATOR Cayetano Skinner MD [facility] Procedures Code Procedure Name Date Entry Date Standard Description CPT-26439 Abx/Therapy Injection 09:57:17 CDT CPT-J1885 Toradol 30 mg (Ketorolac) 09:49:34 CDT CPT-73779 Venipuncture Draw Fee 10:10:37 CDT CPT-96028 [facility] 10:06:58 CDT CPT-20267 Bladder Scan 19:49:06 DUMP OPERATOR CPT-28279 Spec Collection and Handling Fee 11:57:40 CDT CPT-J1020 Depo Medrol 60 mg (Methyl Prednisolone Acetate) 12:03:49 CDT CPT-34728 Abx/Therapy Injection 12:03:48 CDT CPT-J1020 Depo Medrol 60 mg (Methyl Prednisolone Acetate) 09:56:19 CDT CPT-08735 Spec Collection and Handling Fee 12:10:42 CDT CPT-PV Prev. Care Visit 12:10:42 CDT CPT-59456 Administration single or combination vaccine inc oral 16:45:52 DUMP OPERATOR CPT-77898 Influenza split virus > age 3 16:45:52 DUMP OPERATOR CPT-95848 Spec Collection and Handling Fee 10:35:02 DUMP OPERATOR
--- OUTSIDE RECORDS SUMMARY | 2019-04-22 10:37 | XMS REPORT | Clinical Summary ---
Author Author Admin, [facility] Organization [facility] Address Unknown Phone Unavailable Allergies, Adverse [...] as needed for muscle spasms. CYCLOBENZAPRINE HCL 30076253601 Active Melinda Baxter APRN Active SUBOXONE 8-2 MG SUBLINGUAL FILM 1 1/2 STRIPS QD BUPRENORPHINE HCL-NALOXONE HCL 11793859071 No Longer Active Melinda Yokum PICK PULLING MACHINE OPERATOR Active TRAZODONE HCL 100 MG ORAL TABLET 0.5 to 1 po qHS PRN Insomnia TRAZODONE HCL 12279642345 No Longer Active Melinda Yokum PICK PULLING MACHINE OPERATOR Active PREDNISONE 20 MG ORAL TABLET 2 tabs daily for 4 days, 1 tab daily for 4 days, 1/2 tab daily for 4 days PREDNISONE 58676521960 No Longer Active Melinda Yokum PICK PULLING MACHINE OPERATOR Active ZYRTEC ALLERGY 10 MG ORAL CAPSULE 1 po am CETIRIZINE HCL 48904030448 No Longer Active Melinda Yokum PICK PULLING MACHINE OPERATOR Active ZANTAC 150 MG ORAL TABLET 1 tab po q am RANITIDINE HCL 84981340830 No Longer Active Melinda Yokum PICK PULLING MACHINE OPERATOR Active TAMIFLU 75 MG ORAL CAPSULE 1 cap PO bid x 5 days OSELTAMIVIR PHOSPHATE 22906216246 No Longer Active Luna Mauro PICK PULLING MACHINE OPERATOR Active LUNESTA 1 MG ORAL TABLET 1 po qHS PRN Insomnia ESZOPICLONE 82651053673 No Longer Active Joanne Molina RMA Active VENLAFAXINE HCL 75 MG ORAL TABLET 1.5 po BID VENLAFAXINE HCL 76299881464 Active Cayetano Skinner MD Active TRAZODONE HCL 100 MG ORAL TABLET 0.5 to 1 po qHS PRN Insomnia TRAZODONE HCL 34981935336 No Longer Active Cayetano Skinner MD Active SERTRALINE HCL 100 MG ORAL TABLET 2 po qd SERTRALINE HCL 98284702048 No Longer Active Cayetano Skinner MD Active MACROBID CAPSULE 1 cap po qd. NITROFURANTOIN MONOHYD MACRO CAPS 76879536722 No Longer Active Kimberly Brown MD Active CIPRO 500 MG ORAL TABLET 1 tablet by mouth twice daily CIPROFLOXACIN HCL 41174120398 No Longer Active Cayetano Skinner MD Active MACROBID 100 MG ORAL CAPSULE Take one by mouth daily NITROFURANTOIN MONOHYD MACRO 30342854859 No Longer Active Kimberly Brown MD Active SUBOXONE 8-2 MG SUBL 2 po qd BUPRENORPHINE HCL-NALOXONE HCL 17767427678 No Longer Active Kimberly Brown MD Active HYDROCORTISONE 2.5 % EXTERNAL CREAM Apply three times a day to affected area HYDROCORTISONE 29260759166 No Longer Active Kimberly Brown MD Active AUGMENTIN 500-125 MG ORAL TABLET Take 1 capsule by mouth three times a day X 10 days AMOXICILLIN-POT CLAVULANATE 09800820556 No Longer Active Connie Reyes APRN Active BACTRIM DS 800-160 MG ORAL TABLET 1 tab by mouth twice daily TRIMETHOPRIM-SULFAMETHOXAZOLE 91129979114 No Longer Active Cayetano Skinner MD Active ZITHROMAX Z-MARTI 250 MG ORAL TABLET 2 today, then 1 daily for 4 days AZITHROMYCIN 86544251324 No Longer Active Jensen Santiago MD Active CETIRIZINE HCL 10 MG ORAL TABLET ONE DAILY CETIRIZINE HCL 75010681001 No Longer Active Jensen Santiago MD Active KLONOPIN 1 MG ORAL TABLET 1/2 tab bid CLONAZEPAM 99610656263 No Longer Active Jensen Santiago MD Active ZOLPIDEM TARTRATE 10 MG ORAL TABLET 1 q hs as needed for sleep ZOLPIDEM TARTRATE 15256377822 No Longer Active Jensen Santiago MD Active CELEXA 40 MG ORAL TABLET Take one by mouth daily CITALOPRAM HYDROBROMIDE 03583530117 No Longer Active Jensen Santiago MD Active AMOXICILLIN 875 MG ORAL TABLET 1 tab by mouth twice daily AMOXICILLIN 44998231626 No Longer Active Cayetano Skinner MD Active FLAGYL 500 MG ORAL TABLET 1 tablet by mouth two times daily METRONIDAZOLE 83989374827 No Longer Active Cayetano Skinner MD Active FLAGYL 500 MG ORAL TABLET 1 tablet by mouth two times daily METRONIDAZOLE 60749186279 No Longer Active Cayetano Skinner MD Active BUSPIRONE HCL 15 MG ORAL TABLET 1/2 PO BID BUSPIRONE HCL 05339308591 No Longer Active Cayetano Skinner MD Active BUSPIRONE HCL 15 MG ORAL TABLET 1/2 PO BID BUSPIRONE HCL 15 MG ORAL TABLET 110990 BUSPIRONE HCL Inactive CELEXA 40 MG ORAL TABLET Take one by mouth daily CELEXA 40 MG ORAL TABLET 015102 CITALOPRAM HYDROBROMIDE Inactive ZOLPIDEM TARTRATE 10 MG ORAL TABLET 1 q hs as needed for sleep ZOLPIDEM TARTRATE 10 MG ORAL TABLET 183147 ZOLPIDEM TARTRATE Inactive KLONOPIN 1 MG ORAL TABLET 1/2 tab bid KLONOPIN 1 MG ORAL TABLET 888341 CLONAZEPAM Inactive CETIRIZINE HCL 10 MG ORAL TABLET ONE DAILY CETIRIZINE HCL 10 MG ORAL TABLET 7529985 CETIRIZINE HCL Inactive HYDROCORTISONE 2.5 % EXTERNAL CREAM Apply three times a day to affected area HYDROCORTISONE 2.5 % EXTERNAL CREAM 500009 HYDROCORTISONE Inactive SUBOXONE 8-2 MG SUBL 2 po qd SUBOXONE 8-2 MG SUBL BUPRENORPHINE HCL-NALOXONE HCL Inactive CIPRO 500 MG ORAL TABLET 1 tablet by mouth twice daily CIPRO 500 MG ORAL TABLET 047913 CIPROFLOXACIN HCL Inactive MACROBID CAPSULE 1 cap po qd. MACROBID CAPSULE NITROFURANTOIN MONOHYD MACRO CAPS Inactive LUNESTA 1 MG ORAL TABLET 1 po qHS PRN Insomnia LUNESTA 1 MG ORAL TABLET 039286 ESZOPICLONE Inactive ZANTAC 150 MG ORAL TABLET 1 tab po q am ZANTAC 150 MG ORAL TABLET 510352 RANITIDINE HCL Inactive ZYRTEC ALLERGY 10 MG ORAL CAPSULE 1 po am ZYRTEC ALLERGY 10 MG ORAL CAPSULE CETIRIZINE HCL Inactive PREDNISONE 20 MG ORAL TABLET 2 tabs daily for 4 days, 1 tab daily for 4 days, 1/2 tab daily for 4 days PREDNISONE 20 MG ORAL TABLET 371883 PREDNISONE Inactive TRAZODONE HCL 100 MG ORAL TABLET 0.5 to 1 po qHS PRN Insomnia TRAZODONE HCL 100 MG ORAL TABLET 910322 TRAZODONE HCL Inactive SUBOXONE 8-2 MG SUBLINGUAL FILM 1 1/2 STRIPS QD SUBOXONE 8-2 MG SUBLINGUAL FILM 8456367 BUPRENORPHINE HCL-NALOXONE HCL Inactive FLAGYL 500 MG ORAL TABLET 1 tablet by mouth two times daily FLAGYL 500 MG ORAL TABLET 923425 METRONIDAZOLE Inactive FLAGYL 500 MG ORAL TABLET 1 tablet by mouth two times daily FLAGYL 500 MG ORAL TABLET 082221 METRONIDAZOLE Inactive AMOXICILLIN 875 MG ORAL TABLET 1 tab by mouth twice daily AMOXICILLIN 875 MG ORAL TABLET 942447 AMOXICILLIN Inactive ZITHROMAX Z-MARTI 250 MG ORAL TABLET 2 today, then 1 daily for 4 days ZITHROMAX Z-MARTI 250 MG ORAL TABLET 570292 AZITHROMYCIN Inactive BACTRIM DS 800-160 MG ORAL TABLET 1 tab by mouth twice daily BACTRIM DS 800-160 MG ORAL TABLET 482839 TRIMETHOPRIM-SULFAMETHOXAZOLE Inactive AUGMENTIN 500-125 MG ORAL TABLET Take 1 capsule by mouth three times a day X 10 days AUGMENTIN 500-125 MG ORAL TABLET 796236 AMOXICILLIN- POT CLAVULANATE Inactive MACROBID 100 MG ORAL CAPSULE Take one by mouth daily MACROBID 100 MG ORAL CAPSULE 3440214 NITROFURANTOIN MONOHYD MACRO Inactive TAMIFLU 75 MG ORAL CAPSULE 1 cap PO bid x 5 days TAMIFLU 75 MG ORAL CAPSULE 687916 OSELTAMIVIR PHOSPHATE Inactive Immunizations Vaccine Administration Date Value Standard Description Seasonal influenza vaccine, injectable, containing preservative, for > 3 years old (Afluria, FluLaval, Fluzone, Fluvirin, Fluarix, Agriflu(>=18 yo)) Fluzone (>3 yrs.) [[id number]] Influenza, seasonal, injectable Vital Signs Date Name [...] Range Description Lab Report: C-REACTIVE PROTEIN, HIV-1/2 Agn/[place]/81401, Drug Abuse Pnl 10 ... - Chemistry rapid plasma reagin antibody titer NON-REACTIVE NON-REACTIVE Lab Report: C-REACTIVE PROTEIN, HIV-1/2 Agn/[place]/80873, Drug Abuse Pnl 10 ... - Lab chlamydia DNA probe NOT DETECTED NOT DETECTED Lab Report: C-REACTIVE PROTEIN, HIV-1/2 Agn/[place]/41208, Drug Abuse Pnl 10 ... - Microbiology Neisseria gonorrhoeae DNA probe NOT DETECTED NOT DETECTED Lab Report: CBC W/DIFF, Comp. Metabolic Panel, Free Thyroxine (L), Thyro ... - Chemistry sodium, serum 138 mmol/L 662-221 4537/09/12 carbon dioxide, venous blood 29.9 mmol/L 21.0-32.0 [...] 5.0-8.5 Encounters Code Encounter Date Provider Facility CPT-06607 Level 3 Est. Patient 13:56:06 CDT Melinda Baxter [facility] CPT-57259 Level 4 Est. Patient 22:21:42 CDT Dorothy Ayala [facility] CPT-38441 Level 4 Est. Patient 21:18:20 CDT Dorothy Ayala [facility] CPT-01677 Level 3 Est. Patient 10:06:58 [facility]T [facility] Level 3 Est. Patient 09:36:26 CDT Dorothy Ayala [facility] CPT-70334 Level 3 Est. Patient 16:55:26 CDT Cayetano Skinner MD [facility] CPT-83976 Level 2 Est. Patient 11:28:42 CDT Kimberly Brown MD [facility] CPT-38978 Level 3 Est. Patient 15:04:35 CDT Cayetano Skinner MD [facility] CPT-14807 Level 3 Est. Patient 15:07:05 ASSISTANT KITCHEN MANAGER Cayetano Skinner MD [facility] CPT-94655 Level 3 Est. Patient 09:56:19 CDT Connie Reyes [facility] CPT-27295 Level 3 Est. Patient 12:31:18 ASSISTANT KITCHEN MANAGER Jensen Santiago MD [facility] CPT-14871 Level 3 Est. Patient 10:35:02 ASSISTANT KITCHEN MANAGER Cayetano Skinner MD [facility] CPT-66164 Level 3 Est. Patient 12:50:08 ASSISTANT KITCHEN MANAGER Cayetano Skinner MD [facility] Procedures Code Procedure Name Date Entry Date Standard Description CPT-92690 Abx/Therapy Injection 09:57:17 CDT CPT-J1885 Toradol 30 mg (Ketorolac) 09:49:34 CDT CPT-92352 Venipuncture Draw Fee 10:10:37 CDT CPT-39779 [facility] 10:06:58 CDT CPT-20628 Bladder Scan 19:49:06 ASSISTANT KITCHEN MANAGER CPT-28487 Spec Collection and Handling Fee 11:57:40 CDT CPT-J1020 Depo Medrol 60 mg (Methyl Prednisolone Acetate) 12:03:49 CDT CPT-71457 Abx/Therapy Injection 12:03:48 CDT CPT-J1020 Depo Medrol 60 mg (Methyl Prednisolone Acetate) 09:56:19 CDT CPT-86276 Spec Collection and Handling Fee 12:10:42 CDT CPT-PV Prev. Care Visit 12:10:42 CDT CPT-38116 Administration single or combination vaccine inc oral 16:45:52 ASSISTANT KITCHEN MANAGER CPT-60971 Influenza split virus > age 3 16:45:52 ASSISTANT KITCHEN MANAGER CPT-84724 Spec Collection and Handling Fee 10:35:02 ASSISTANT KITCHEN MANAGER
--- OUTSIDE RECORDS SUMMARY | 2019-04-22 10:37 | XMS REPORT | Clinical Summary ---
Author Author Admin, [place] Organization [employer] Address Unknown Phone Unavailable Allergies, Adverse Reactions, [...] as needed for muscle spasms. CYCLOBENZAPRINE HCL 96067801566 Active Melinda Baxter APRN Active SUBOXONE 8-2 MG SUBLINGUAL FILM 1 1/2 STRIPS QD BUPRENORPHINE HCL-NALOXONE HCL 20953092130 No Longer Active Melinda Yokum TOWEL INSPECTOR Active TRAZODONE HCL 100 MG ORAL TABLET 0.5 to 1 po qHS PRN Insomnia TRAZODONE HCL 64588399561 No Longer Active Melinda Yokum TOWEL INSPECTOR Active PREDNISONE 20 MG ORAL TABLET 2 tabs daily for 4 days, 1 tab daily for 4 days, 1/2 tab daily for 4 days PREDNISONE 51981024519 No Longer Active Melinda Yokum TOWEL INSPECTOR Active ZYRTEC ALLERGY 10 MG ORAL CAPSULE 1 po am CETIRIZINE HCL 65989829147 No Longer Active Melinda Yokum TOWEL INSPECTOR Active ZANTAC 150 MG ORAL TABLET 1 tab po q am RANITIDINE HCL 14722193117 No Longer Active Melinda Yokum TOWEL INSPECTOR Active TAMIFLU 75 MG ORAL CAPSULE 1 cap PO bid x 5 days OSELTAMIVIR PHOSPHATE 35095364532 No Longer Active Luna Vermilion TOWEL INSPECTOR Active LUNESTA 1 MG ORAL TABLET 1 po qHS PRN Insomnia ESZOPICLONE 56476682913 No Longer Active Joanne Molina RMA Active VENLAFAXINE HCL 75 MG ORAL TABLET 1.5 po BID VENLAFAXINE HCL 98320700647 Active Cayetano Skinner MD Active TRAZODONE HCL 100 MG ORAL TABLET 0.5 to 1 po qHS PRN Insomnia TRAZODONE HCL 59012997758 No Longer Active Cayetano Skinner MD Active SERTRALINE HCL 100 MG ORAL TABLET 2 po qd SERTRALINE HCL 98717983318 No Longer Active Cayetano Skinner MD Active MACROBID CAPSULE 1 cap po qd. NITROFURANTOIN MONOHYD MACRO CAPS 19226418436 No Longer Active Kimberly Brown MD Active CIPRO 500 MG ORAL TABLET 1 tablet by mouth twice daily CIPROFLOXACIN HCL 85573240183 No Longer Active Cayetano Skinner MD Active MACROBID 100 MG ORAL CAPSULE Take one by mouth daily NITROFURANTOIN MONOHYD MACRO 78522884561 No Longer Active Kimberly Brown MD Active SUBOXONE 8-2 MG SUBL 2 po qd BUPRENORPHINE HCL-NALOXONE HCL 67131992660 No Longer Active Kimberly Brown MD Active HYDROCORTISONE 2.5 % EXTERNAL CREAM Apply three times a day to affected area HYDROCORTISONE 70137983453 No Longer Active Kimberly Brown MD Active AUGMENTIN 500-125 MG ORAL TABLET Take 1 capsule by mouth three times a day X 10 days AMOXICILLIN-POT CLAVULANATE 73115216308 No Longer Active Connie Reyes APRN Active BACTRIM DS 800-160 MG ORAL TABLET 1 tab by mouth twice daily TRIMETHOPRIM-SULFAMETHOXAZOLE 22241806445 No Longer Active Cayetano Skinner MD Active ZITHROMAX Z-MARTI 250 MG ORAL TABLET 2 today, then 1 daily for 4 days AZITHROMYCIN 38377053900 No Longer Active Jensen Santiago MD Active CETIRIZINE HCL 10 MG ORAL TABLET ONE DAILY CETIRIZINE HCL 03315987112 No Longer Active Jensen Santiago MD Active KLONOPIN 1 MG ORAL TABLET 1/2 tab bid CLONAZEPAM 87751918764 No Longer Active Jensen Santiago MD Active ZOLPIDEM TARTRATE 10 MG ORAL TABLET 1 q hs as needed for sleep ZOLPIDEM TARTRATE 36557360628 No Longer Active Jensen Santiago MD Active CELEXA 40 MG ORAL TABLET Take one by mouth daily CITALOPRAM HYDROBROMIDE 38676979698 No Longer Active Jensen Santiago MD Active AMOXICILLIN 875 MG ORAL TABLET 1 tab by mouth twice daily AMOXICILLIN 45272675361 No Longer Active Cayetano Skinner MD Active FLAGYL 500 MG ORAL TABLET 1 tablet by mouth two times daily METRONIDAZOLE 93492742198 No Longer Active Cayetano Skinner MD Active FLAGYL 500 MG ORAL TABLET 1 tablet by mouth two times daily METRONIDAZOLE 67168669342 No Longer Active Cayetano Skinner MD Active BUSPIRONE HCL 15 MG ORAL TABLET 1/2 PO BID BUSPIRONE HCL 96511760234 No Longer Active Cayetano Skinner MD Active BUSPIRONE HCL 15 MG ORAL TABLET 1/2 PO BID BUSPIRONE HCL 15 MG ORAL TABLET 681308 BUSPIRONE HCL Inactive CELEXA 40 MG ORAL TABLET Take one by mouth daily CELEXA 40 MG ORAL TABLET 505893 CITALOPRAM HYDROBROMIDE Inactive ZOLPIDEM TARTRATE 10 MG ORAL TABLET 1 q hs as needed for sleep ZOLPIDEM TARTRATE 10 MG ORAL TABLET 029999 ZOLPIDEM TARTRATE Inactive KLONOPIN 1 MG ORAL TABLET 1/2 tab bid KLONOPIN 1 MG ORAL TABLET 456066 CLONAZEPAM Inactive CETIRIZINE HCL 10 MG ORAL TABLET ONE DAILY CETIRIZINE HCL 10 MG ORAL TABLET 4369770 CETIRIZINE HCL Inactive HYDROCORTISONE 2.5 % EXTERNAL CREAM Apply three times a day to affected area HYDROCORTISONE 2.5 % EXTERNAL CREAM 678076 HYDROCORTISONE Inactive SUBOXONE 8-2 MG SUBL 2 po qd SUBOXONE 8-2 MG SUBL BUPRENORPHINE HCL-NALOXONE HCL Inactive CIPRO 500 MG ORAL TABLET 1 tablet by mouth twice daily CIPRO 500 MG ORAL TABLET 126154 CIPROFLOXACIN HCL Inactive MACROBID CAPSULE 1 cap po qd. MACROBID CAPSULE NITROFURANTOIN MONOHYD MACRO CAPS Inactive LUNESTA 1 MG ORAL TABLET 1 po qHS PRN Insomnia LUNESTA 1 MG ORAL TABLET 408982 ESZOPICLONE Inactive ZANTAC 150 MG ORAL TABLET 1 tab po q am ZANTAC 150 MG ORAL TABLET 339384 RANITIDINE HCL Inactive ZYRTEC ALLERGY 10 MG ORAL CAPSULE 1 po am ZYRTEC ALLERGY 10 MG ORAL CAPSULE CETIRIZINE HCL Inactive PREDNISONE 20 MG ORAL TABLET 2 tabs daily for 4 days, 1 tab daily for 4 days, 1/2 tab daily for 4 days PREDNISONE 20 MG ORAL TABLET 212736 PREDNISONE Inactive TRAZODONE HCL 100 MG ORAL TABLET 0.5 to 1 po qHS PRN Insomnia TRAZODONE HCL 100 MG ORAL TABLET 024743 TRAZODONE HCL Inactive SUBOXONE 8-2 MG SUBLINGUAL FILM 1 1/2 STRIPS QD SUBOXONE 8-2 MG SUBLINGUAL FILM 6005426 BUPRENORPHINE HCL-NALOXONE HCL Inactive FLAGYL 500 MG ORAL TABLET 1 tablet by mouth two times daily FLAGYL 500 MG ORAL TABLET 445420 METRONIDAZOLE Inactive FLAGYL 500 MG ORAL TABLET 1 tablet by mouth two times daily FLAGYL 500 MG ORAL TABLET 120661 METRONIDAZOLE Inactive AMOXICILLIN 875 MG ORAL TABLET 1 tab by mouth twice daily AMOXICILLIN 875 MG ORAL TABLET 156670 AMOXICILLIN Inactive ZITHROMAX Z-MARTI 250 MG ORAL TABLET 2 today, then 1 daily for 4 days ZITHROMAX Z-MARTI 250 MG ORAL TABLET 173297 AZITHROMYCIN Inactive BACTRIM DS 800-160 MG ORAL TABLET 1 tab by mouth twice daily BACTRIM DS 800-160 MG ORAL TABLET 009539 TRIMETHOPRIM-SULFAMETHOXAZOLE Inactive AUGMENTIN 500-125 MG ORAL TABLET Take 1 capsule by mouth three times a day X 10 days AUGMENTIN 500-125 MG ORAL TABLET 546486 AMOXICILLIN- POT CLAVULANATE Inactive MACROBID 100 MG ORAL CAPSULE Take one by mouth daily MACROBID 100 MG ORAL CAPSULE 1301566 NITROFURANTOIN MONOHYD MACRO Inactive TAMIFLU 75 MG ORAL CAPSULE 1 cap PO bid x 5 days TAMIFLU 75 MG ORAL CAPSULE 791607 OSELTAMIVIR PHOSPHATE Inactive Immunizations Vaccine Administration Date Value Standard Description Seasonal influenza vaccine, injectable, containing preservative, for > 3 years old (Afluria, FluLaval, Fluzone, Fluvirin, Fluarix, Agriflu(>=18 yo)) Fluzone (>3 yrs.) [[id number]] Influenza, seasonal, injectable Vital Signs Date Name [...] Range Description Lab Report: C-REACTIVE PROTEIN, HIV-1/2 Agn/[place]/79091, Drug Abuse Pnl 10 ... - Chemistry rapid plasma reagin antibody titer NON-REACTIVE NON-REACTIVE Lab Report: C-REACTIVE PROTEIN, HIV-1/2 Agn/[place]/96828, Drug Abuse Pnl 10 ... - Lab chlamydia DNA probe NOT DETECTED NOT DETECTED Lab Report: C-REACTIVE PROTEIN, HIV-1/2 Agn/[place]/82202, Drug Abuse Pnl 10 ... - Microbiology Neisseria gonorrhoeae DNA probe NOT DETECTED NOT DETECTED Lab Report: CBC W/DIFF, Comp. Metabolic Panel, Free Thyroxine (L), Thyro ... - Chemistry sodium, serum 138 mmol/L 935-069 3745/09/12 carbon dioxide, venous blood 29.9 mmol/L 21.0-32.0 [...] 5.0-8.5 Encounters Code Encounter Date Provider Facility CPT-20439 Level 3 Est. Patient 13:56:06 CDT Melinda Baxter [facility] CPT-22843 Level 4 Est. Patient 22:21:42 CDT Dorothy Ayala [facility] CPT-73248 Level 4 Est. Patient 21:18:20 CDT Dorothy Ayala [facility] CPT-22998 Level 3 Est. Patient 10:06:58 [facility] Level 3 Est. Patient 09:36:26 CDT Dorothy Ayala [facility] CPT-29460 Level 3 Est. Patient 16:55:26 CDT Cayetano Skinner MD [facility] CPT-78935 Level 2 Est. Patient 11:28:42 CDT Kimberly Brown MD [facility] CPT-82664 Level 3 Est. Patient 15:04:35 CDT Cayetano Skinner MD [facility] CPT-05126 Level 3 Est. Patient 15:07:05 VERTICAL CONTOUR BAND SAW OPERATOR Cayetano Skinner MD [facility] CPT-63349 Level 3 Est. Patient 09:56:19 CDT Connie Reyes [facility] CPT-13327 Level 3 Est. Patient 12:31:18 VERTICAL CONTOUR BAND SAW OPERATOR Jensen Santiago MD [facility] CPT-05325 Level 3 Est. Patient 10:35:02 VERTICAL CONTOUR BAND SAW OPERATOR Cayetano Skinner MD [facility] CPT-93178 Level 3 Est. Patient 12:50:08 VERTICAL CONTOUR BAND SAW OPERATOR Cayetano Skinner MD [facility] Procedures Code Procedure Name Date Entry Date Standard Description CPT-42296 Abx/Therapy Injection 09:57:17 CDT CPT-J1885 Toradol 30 mg (Ketorolac) 09:49:34 CDT CPT-03061 Venipuncture Draw Fee 10:10:37 CDT CPT-05777 [facility] 10:06:58 CDT CPT-91012 Bladder Scan 19:49:06 VERTICAL CONTOUR BAND SAW OPERATOR CPT-61416 Spec Collection and Handling Fee 11:57:40 CDT CPT-J1020 Depo Medrol 60 mg (Methyl Prednisolone Acetate) 12:03:49 CDT CPT-84432 Abx/Therapy Injection 12:03:48 CDT CPT-J1020 Depo Medrol 60 mg (Methyl Prednisolone Acetate) 09:56:19 CDT CPT-52186 Spec Collection and Handling Fee 12:10:42 CDT CPT-PV Prev. Care Visit 12:10:42 CDT CPT-13455 Administration single or combination vaccine inc oral 16:45:52 VERTICAL CONTOUR BAND SAW OPERATOR CPT-72221 Influenza split virus > age 3 16:45:52 VERTICAL CONTOUR BAND SAW OPERATOR CPT-68806 Spec Collection and Handling Fee 10:35:02 VERTICAL CONTOUR BAND SAW OPERATOR
--- OUTSIDE RECORDS SUMMARY | 2019-04-22 10:38 | XMS REPORT | Clinical Summary ---
Author Author Admin, [facility] Organization [facility] Address Unknown Phone Unavailable Allergies, Adverse [...] APRN Spasm of muscle DEPRESSION ICD-311 Inactive Cayeatno Skinner MD CERVICAL CANCER ICD-V10.41 Inactive Cayetano [...] as needed for muscle spasms. CYCLOBENZAPRINE HCL 93690392019 Active Melinda Baxter APRN Active SUBOXONE 8-2 MG SUBLINGUAL FILM 1 1/2 STRIPS QD BUPRENORPHINE HCL-NALOXONE HCL 83519311153 No Longer Active Melinda Yokum [employer] Active TRAZODONE HCL 100 MG ORAL TABLET 0.5 to 1 po qHS PRN Insomnia TRAZODONE HCL 08114873693 No Longer Active Melinda Yokum [employer] Active PREDNISONE 20 MG ORAL TABLET 2 tabs daily for 4 days, 1 tab daily for 4 days, 1/2 tab daily for 4 days PREDNISONE 13729124664 No Longer Active Melinda Yokum [employer] Active ZYRTEC ALLERGY 10 MG ORAL CAPSULE 1 po am CETIRIZINE HCL 89260364451 No Longer Active Melinda Yokum [employer] Active ZANTAC 150 MG ORAL TABLET 1 tab po q am RANITIDINE HCL 39794743508 No Longer Active Melinda Yokum [employer] Active TAMIFLU 75 MG ORAL CAPSULE 1 cap PO bid x 5 days OSELTAMIVIR PHOSPHATE 73061169234 No Longer Active Luna Mauro [employer] Active LUNESTA 1 MG ORAL TABLET 1 po qHS PRN Insomnia ESZOPICLONE 28407800263 No Longer Active Joanne Molina RMA Active VENLAFAXINE HCL 75 MG ORAL TABLET 1.5 po BID VENLAFAXINE HCL 71198889971 Active Cayetano Skinner MD Active TRAZODONE HCL 100 MG ORAL TABLET 0.5 to 1 po qHS PRN Insomnia TRAZODONE HCL 89162667251 No Longer Active Cayetano Skinner MD Active SERTRALINE HCL 100 MG ORAL TABLET 2 po qd SERTRALINE HCL 87154788416 No Longer Active Cayetano Skinner MD Active MACROBID CAPSULE 1 cap po qd. NITROFURANTOIN MONOHYD MACRO CAPS 89137738678 No Longer Active Kimberly Brown MD Active CIPRO 500 MG ORAL TABLET 1 tablet by mouth twice daily CIPROFLOXACIN HCL 99050156219 No Longer Active Cayetano Skinner MD Active MACROBID 100 MG ORAL CAPSULE Take one by mouth daily NITROFURANTOIN MONOHYD MACRO 61051540041 No Longer Active Kimberly Brown MD Active SUBOXONE 8-2 MG SUBL 2 po qd BUPRENORPHINE HCL-NALOXONE HCL 09845925789 No Longer Active Kimberly Brown MD Active HYDROCORTISONE 2.5 % EXTERNAL CREAM Apply three times a day to affected area HYDROCORTISONE 52416327822 No Longer Active Kimberly Brown MD Active AUGMENTIN 500-125 MG ORAL TABLET Take 1 capsule by mouth three times a day X 10 days AMOXICILLIN-POT CLAVULANATE 14176297672 No Longer Active Connie Reyes APRN Active BACTRIM DS 800-160 MG ORAL TABLET 1 tab by mouth twice daily TRIMETHOPRIM-SULFAMETHOXAZOLE 40428556091 No Longer Active Cayetano Skinner MD Active ZITHROMAX Z-MARTI 250 MG ORAL TABLET 2 today, then 1 daily for 4 days AZITHROMYCIN 34744436981 No Longer Active Jensen Santiago MD Active CETIRIZINE HCL 10 MG ORAL TABLET ONE DAILY CETIRIZINE HCL 53450206837 No Longer Active Jensen Santiago MD Active KLONOPIN 1 MG ORAL TABLET 1/2 tab bid CLONAZEPAM 20873328444 No Longer Active Jensen Santiago MD Active ZOLPIDEM TARTRATE 10 MG ORAL TABLET 1 q hs as needed for sleep ZOLPIDEM TARTRATE 61047860049 No Longer Active Jensen Santiago MD Active CELEXA 40 MG ORAL TABLET Take one by mouth daily CITALOPRAM HYDROBROMIDE 51594919307 No Longer Active Jensen Santiago MD Active AMOXICILLIN 875 MG ORAL TABLET 1 tab by mouth twice daily AMOXICILLIN 74400845350 No Longer Active Cayetano Skinner MD Active FLAGYL 500 MG ORAL TABLET 1 tablet by mouth two times daily METRONIDAZOLE 53104591191 No Longer Active Cayetano Skinner MD Active FLAGYL 500 MG ORAL TABLET 1 tablet by mouth two times daily METRONIDAZOLE 23437403762 No Longer Active Cayetano Skinner MD Active BUSPIRONE HCL 15 MG ORAL TABLET 1/2 PO BID BUSPIRONE HCL 99499851015 No Longer Active Cayetano Skinner MD Active BUSPIRONE HCL 15 MG ORAL TABLET 1/2 PO BID BUSPIRONE HCL 15 MG ORAL TABLET 395266 BUSPIRONE HCL Inactive CELEXA 40 MG ORAL TABLET Take one by mouth daily CELEXA 40 MG ORAL TABLET 102559 CITALOPRAM HYDROBROMIDE Inactive ZOLPIDEM TARTRATE 10 MG ORAL TABLET 1 q hs as needed for sleep ZOLPIDEM TARTRATE 10 MG ORAL TABLET 728178 ZOLPIDEM TARTRATE Inactive KLONOPIN 1 MG ORAL TABLET 1/2 tab bid KLONOPIN 1 MG ORAL TABLET 991296 CLONAZEPAM Inactive CETIRIZINE HCL 10 MG ORAL TABLET ONE DAILY CETIRIZINE HCL 10 MG ORAL TABLET 2949306 CETIRIZINE HCL Inactive HYDROCORTISONE 2.5 % EXTERNAL CREAM Apply three times a day to affected area HYDROCORTISONE 2.5 % EXTERNAL CREAM 362454 HYDROCORTISONE Inactive SUBOXONE 8-2 MG SUBL 2 po qd SUBOXONE 8-2 MG SUBL BUPRENORPHINE HCL-NALOXONE HCL Inactive CIPRO 500 MG ORAL TABLET 1 tablet by mouth twice daily CIPRO 500 MG ORAL TABLET 087469 CIPROFLOXACIN HCL Inactive MACROBID CAPSULE 1 cap po qd. MACROBID CAPSULE NITROFURANTOIN MONOHYD MACRO CAPS Inactive LUNESTA 1 MG ORAL TABLET 1 po qHS PRN Insomnia LUNESTA 1 MG ORAL TABLET 723862 ESZOPICLONE Inactive ZANTAC 150 MG ORAL TABLET 1 tab po q am ZANTAC 150 MG ORAL TABLET 011588 RANITIDINE HCL Inactive ZYRTEC ALLERGY 10 MG ORAL CAPSULE 1 po am ZYRTEC ALLERGY 10 MG ORAL CAPSULE CETIRIZINE HCL Inactive PREDNISONE 20 MG ORAL TABLET 2 tabs daily for 4 days, 1 tab daily for 4 days, 1/2 tab daily for 4 days PREDNISONE 20 MG ORAL TABLET 063057 PREDNISONE Inactive TRAZODONE HCL 100 MG ORAL TABLET 0.5 to 1 po qHS PRN Insomnia TRAZODONE HCL 100 MG ORAL TABLET 769478 TRAZODONE HCL Inactive SUBOXONE 8-2 MG SUBLINGUAL FILM 1 1/2 STRIPS QD SUBOXONE 8-2 MG SUBLINGUAL FILM 5487196 BUPRENORPHINE HCL-NALOXONE HCL Inactive FLAGYL 500 MG ORAL TABLET 1 tablet by mouth two times daily FLAGYL 500 MG ORAL TABLET 911909 METRONIDAZOLE Inactive FLAGYL 500 MG ORAL TABLET 1 tablet by mouth two times daily FLAGYL 500 MG ORAL TABLET 858755 METRONIDAZOLE Inactive AMOXICILLIN 875 MG ORAL TABLET 1 tab by mouth twice daily AMOXICILLIN 875 MG ORAL TABLET 359109 AMOXICILLIN Inactive ZITHROMAX Z-MARTI 250 MG ORAL TABLET 2 today, then 1 daily for 4 days ZITHROMAX Z-MARTI 250 MG ORAL TABLET 136642 AZITHROMYCIN Inactive BACTRIM DS 800-160 MG ORAL TABLET 1 tab by mouth twice daily BACTRIM DS 800-160 MG ORAL TABLET 787181 TRIMETHOPRIM-SULFAMETHOXAZOLE Inactive AUGMENTIN 500-125 MG ORAL TABLET Take 1 capsule by mouth three times a day X 10 days AUGMENTIN 500-125 MG ORAL TABLET 573888 AMOXICILLIN- POT CLAVULANATE Inactive MACROBID 100 MG ORAL CAPSULE Take one by mouth daily MACROBID 100 MG ORAL CAPSULE 3324979 NITROFURANTOIN MONOHYD MACRO Inactive TAMIFLU 75 MG ORAL CAPSULE 1 cap PO bid x 5 days TAMIFLU 75 MG ORAL CAPSULE 696227 OSELTAMIVIR PHOSPHATE Inactive Immunizations Vaccine Administration Date Value Standard Description Seasonal influenza vaccine, injectable, containing preservative, for > 3 years old (Afluria, FluLaval, Fluzone, Fluvirin, Fluarix, Agriflu(>=18 yo)) Fluzone (>3 yrs.) [[id number]] Influenza, seasonal, injectable Vital Signs Date Name [...] Range Description Lab Report: C-REACTIVE PROTEIN, HIV-1/2 Agn/[place]/20013, Drug Abuse Pnl 10 ... - Chemistry rapid plasma reagin antibody titer NON-REACTIVE NON-REACTIVE Lab Report: C-REACTIVE PROTEIN, HIV-1/2 Agn/[place]/64144, Drug Abuse Pnl 10 ... - Lab chlamydia DNA probe NOT DETECTED NOT DETECTED Lab Report: C-REACTIVE PROTEIN, HIV-1/2 Agn/[place]/71357, Drug Abuse Pnl 10 ... - Microbiology Neisseria gonorrhoeae DNA probe NOT DETECTED NOT DETECTED Lab Report: CBC W/DIFF, Comp. Metabolic Panel, Free Thyroxine (L), Thyro ... - Chemistry sodium, serum 138 mmol/L 958-896 7538/09/12 carbon dioxide, venous blood 29.9 mmol/L 21.0-32.0 [...] 5.0-8.5 Encounters Code Encounter Date Provider Facility CPT-03581 Level 3 Est. Patient 13:56:06 CDT Melinda Baxter [facility] CPT-75127 Level 4 Est. Patient 22:21:42 CDT Dorothy Ayala [facility] CPT-04112 Level 4 Est. Patient 21:18:20 CDT Dorothy Ayala [facility] CPT-08237 Level 3 Est. Patient 10:06:58 [facility] CPT-69903 Level 3 Est. Patient 09:36:26 CDT Dorothy Ayala [facility] CPT-03933 Level 3 Est. Patient 16:55:26 CDT Cayetano Skinner MD [facility] CPT-33216 Level 2 Est. Patient 11:28:42 CDT Kimberly Brown MD [facility] CPT-34539 Level 3 Est. Patient 15:04:35 CDT Cayetano Skinner MD [facility] CPT-20696 Level 3 Est. Patient 15:07:05 BILLET CUTTER Cayetano Skinenr MD [facility] CPT-26596 Level 3 Est. Patient 09:56:19 CDT Connie Reyes [facility] CPT-09409 Level 3 Est. Patient 12:31:18 BILLET CUTTER Jensen Santiago MD [facility] CPT-84585 Level 3 Est. Patient 10:35:02 BILLET CUTTER Cayetano Skinner MD [facility] CPT-41779 Level 3 Est. Patient 12:50:08 BILLET CUTTER Cayetano Skinner MD [facility] Procedures Code Procedure Name Date Entry Date Standard Description CPT-37573 Abx/Therapy Injection 09:57:17 CDT CPT-J1885 Toradol 30 mg (Ketorolac) 09:49:34 CDT CPT-05840 Venipuncture Draw Fee 10:10:37 CDT CPT-98090 [facility] - [facility] 10:06:58 CDT CPT-37819 Bladder Scan 19:49:06 BILLET CUTTER CPT-66645 Spec Collection and Handling Fee 11:57:40 CDT CPT-J1020 Depo Medrol 60 mg (Methyl Prednisolone Acetate) 12:03:49 CDT CPT-32194 Abx/Therapy Injection 12:03:48 CDT CPT-J1020 Depo Medrol 60 mg (Methyl Prednisolone Acetate) 09:56:19 CDT CPT-33378 Spec Collection and Handling Fee 12:10:42 CDT CPT-PV Prev. Care Visit 12:10:42 CDT CPT-15136 Administration single or combination vaccine inc oral 16:45:52 BILLET CUTTER CPT-17027 Influenza split virus > age 3 16:45:52 BILLET CUTTER CPT-02838 Spec Collection and Handling Fee 10:35:02 BILLET CUTTER
--- OUTSIDE RECORDS SUMMARY | 2019-04-22 10:39 | XMS REPORT | Clinical Summary ---
Author Author Admin, [employer] Organization [facility] Address Unknown Phone Unavailable Allergies, Adverse Reactions, Alerts Allergy Name Reaction Description Start Date Severity Status Provider No Known Allergies Bhavna Centeno MA Conditions or Problems Problem Name Problem [...] not elsewhere classified Pruritus 698.9 Active Fadiaina Derrelll [employer] Unspecified pruritic disorder Urticaria 708.9 Active Dorothy Ayala APRN Unspecified urticaria Hepatitis C 070.70 Active Dorothy Ayala APRN Unspecified viral hepatitis C without hepatic coma DEPRESSION ICD-311 Inactive Cayetano Skinner MD CERVICAL [...] Generic Name NDC Status Provider Patient Instruction ZANTAC 150 MG TAB 1 tab po q am RANITIDINE HCL 71232618658 Active Jillina Frazell [employer] Active ZYRTEC ALLERGY 10 MG CAPS 1 po am CETIRIZINE HCL 81881261550 Active Jillina Frazell [employer] Active PREDNISONE 20 MG TAB 2 tabs daily for 4 days, 1 tab daily for 4 days, /2 tab daily for 4 days PREDNISONE 55765768408 Active Dorothy Scotttamara [place] Active VENLAFAXINE HCL 75 MG ORAL TABS 1.5 po BID VENLAFAXINE HCL 59475922665 Active Cayetano Skinner MD Active TRAZODONE HCL 100 MG ORAL TABS 0.5 to 1 po qHS PRN Insomnia TRAZODONE HCL 85634593364 Active Cayetano Skinner MD Active SERTRALINE HCL 100 MG ORAL TABS 2 po qd SERTRALINE HCL 31331818842 No Longer Active Cayetano Skinner MD Active MACROBID CAPS 1 cap po qd. NITROFURANTOIN MONOHYD MACRO CAPS 23946910754 No Longer Active Kimberly Brown MD Active SUBOXONE 8-2 MG SL FILM 1 1/2 STRIPS QD BUPRENORPHINE HCL-NALOXONE HCL 57159333772 Active Cayetano Skinner MD Active CIPRO 500 MG TAB 1 tablet by mouth twice daily CIPROFLOXACIN HCL 87274481929 No Longer Active Cayetano Skinner MD Active MACROBID 100 MG ORAL CAPS Take one by mouth daily NITROFURANTOIN MONOHYD MACRO 81820977920 No Longer Active Kimberly Brown MD Active SUBOXONE 8-2 MG SUBL 2 po qd BUPRENORPHINE HCL-NALOXONE HCL 45206328452 No Longer Active Kimberly Brown MD Active HYDROCORTISONE 2.5 % EXT CREA Apply three times a day to affected area HYDROCORTISONE 68772114727 No Longer Active Kimberly Brown MD Active AUGMENTIN 500-125 MG TAB Take 1 capsule by mouth three times a day X 10 days AMOXICILLIN-POT CLAVULANATE 08721567996 No Longer Active Connie Reyes APRN Active BACTRIM DS 800-160 MG TAB 1 tab by mouth twice daily TRIMETHOPRIM-SULFAMETHOXAZOLE 97508437705 No Longer Active Cayetano Skinner MD Active ZITHROMAX Z-MARTI 250 MG TABS 2 today, then 1 daily for 4 days AZITHROMYCIN 29697410803 No Longer Active Jensen Santiago MD Active CETIRIZINE HCL 10 MG TABS ONE DAILY CETIRIZINE HCL 32127450338 No Longer Active Jensen Santiago MD Active KLONOPIN 1 MG TAB 1/2 tab bid CLONAZEPAM 66673303061 No Longer Active Jensen Santiago MD Active ZOLPIDEM TARTRATE 10 MG TABS 1 q hs as needed for sleep ZOLPIDEM TARTRATE 67356429101 No Longer Active Jensen Santiago MD Active CELEXA 40 MG TABS Take one by mouth daily CITALOPRAM HYDROBROMIDE 54041906446 No Longer Active Jensen Santiago MD Active AMOXICILLIN 875 MG TABS 1 tab by mouth twice daily AMOXICILLIN 94027539793 No Longer Active Cayetano Skinner MD Active FLAGYL 500 MG TAB 1 tablet by mouth two times daily METRONIDAZOLE 07959243154 No Longer Active Cayetano Skinner MD Active FLAGYL 500 MG TAB 1 tablet by mouth two times daily METRONIDAZOLE 00226948260 No Longer Active Cayetano Skinner MD Active BUSPIRONE HCL 15 MG TABS 1/2 PO BID BUSPIRONE HCL 29059443723 No Longer Active Cayetano Skinner MD Active BUSPIRONE HCL 15 MG TABS 1/2 PO BID BUSPIRONE HCL 15 MG TABS 901659 BUSPIRONE HCL Inactive CELEXA 40 MG TABS Take one by mouth daily CELEXA 40 MG TABS 132419 CITALOPRAM HYDROBROMIDE Inactive ZOLPIDEM TARTRATE 10 MG TABS 1 q hs as needed for sleep ZOLPIDEM TARTRATE 10 MG TABS 398311 ZOLPIDEM TARTRATE Inactive KLONOPIN 1 MG TAB 1/2 tab bid KLONOPIN 1 MG TAB 155158 CLONAZEPAM Inactive CETIRIZINE HCL 10 MG TABS ONE DAILY CETIRIZINE HCL 10 MG TABS 4629603 CETIRIZINE HCL Inactive HYDROCORTISONE 2.5 % EXT CREA Apply three times a day to affected area HYDROCORTISONE 2.5 % EXT CREA 424392 HYDROCORTISONE Inactive SUBOXONE 8-2 MG SUBL 2 po qd SUBOXONE 8-2 MG SUBL BUPRENORPHINE HCL-NALOXONE HCL Inactive CIPRO 500 MG TAB 1 tablet by mouth twice daily CIPRO 500 MG TAB 554194 CIPROFLOXACIN HCL Inactive MACROBID CAPS 1 cap po qd. MACROBID CAPS NITROFURANTOIN MONOHYD MACRO CAPS Inactive FLAGYL 500 MG TAB 1 tablet by mouth two times daily FLAGYL 500 MG TAB 567764 METRONIDAZOLE Inactive FLAGYL 500 MG TAB 1 tablet by mouth two times daily FLAGYL 500 MG TAB 368112 METRONIDAZOLE Inactive AMOXICILLIN 875 MG TABS 1 tab by mouth twice daily AMOXICILLIN 875 MG TABS 678120 AMOXICILLIN Inactive ZITHROMAX Z-MARTI 250 MG TABS 2 today, then 1 daily for 4 days ZITHROMAX Z-MARTI 250 MG TABS 1154245 AZITHROMYCIN Inactive BACTRIM DS 800-160 MG TAB 1 tab by mouth twice daily BACTRIM DS 800-160 MG TAB 645838 TRIMETHOPRIM-SULFAMETHOXAZOLE Inactive AUGMENTIN 500-125 MG TAB Take 1 capsule by mouth three times a day X 10 days AUGMENTIN 500-125 MG TAB 287587 AMOXICILLIN-POT CLAVULANATE Inactive MACROBID 100 MG ORAL CAPS Take one by mouth daily MACROBID 100 MG ORAL CAPS 3833684 NITROFURANTOIN MONOHYD MACRO Inactive Immunizations Vaccine Administration Date Value Standard Description Seasonal influenza vaccine, injectable, containing preservative, for > 3 years old (Afluria, FluLaval, Fluzone, Fluvirin, Fluarix, Agriflu(>=18 yo)) Fluzone (>3 yrs.) [[id number]] Influenza, seasonal, injectable Vital Signs Date Name Value Unit Range Description blood pressure, diastolic 85 mm[Hg] BP [place] blood pressure, systolic 121 mm[Hg] BP sys height E&M 65 [in_us] Bdy height pulse rate E&M 90 /min Heart rate temperature E&M 98.7 [degF] Body temperature weight E&M 122.5 [lb_av] Weight Measured blood pressure, diastolic 79 mm[Hg] BP [place] blood pressure, systolic 123 mm[Hg] BP sys pulse rate E&M 68 /min Heart rate temperature E&M 98.6 [degF] Body temperature weight E&M 121 [lb_av] Weight Measured blood pressure, diastolic 80 mm[Hg] BP [place] blood pressure, systolic 121 mm[Hg] BP sys pulse rate E&M 92 /min Heart rate temperature E&M 98.3 [degF] Body temperature weight E&M 113.5 [lb_av] Weight Measured blood pressure, diastolic 84 mm[Hg] BP [place] blood pressure, systolic 113 mm[Hg] BP sys height E&M 65 [in_us] Bdy height pulse rate E&M 73 /min Heart rate temperature E&M 98.1 [degF] Body temperature weight E&M 114.5 [lb_av] Weight Measured blood pressure, diastolic 78 mm[Hg] BP [place] blood pressure, systolic 134 mm[Hg] BP sys pulse rate E&M 92 /min Heart rate temperature E&M 98 [degF] Body temperature weight E&M 115.1 [lb_av] Weight Measured blood pressure, diastolic 90 mm[Hg] BP [place] blood pressure, systolic 123 mm[Hg] BP sys pulse rate E&M 90 /min Heart rate temperature E&M 98.4 [degF] Body temperature weight E&M 115 [lb_av] Weight Measured Diagnostic Results Date Name Value Unit Range Description Lab Report: C-REACTIVE PROTEIN, HIV-1/2 Agn/[place]/14047, Drug Abuse Pnl 10 ... - Chemistry rapid plasma reagin antibody titer NON-REACTIVE NON-REACTIVE Lab Report: C-REACTIVE PROTEIN, HIV-1/2 Agn/[place]/05384, Drug Abuse Pnl 10 ... - Lab chlamydia DNA probe NOT DETECTED NOT DETECTED Lab Report: C-REACTIVE PROTEIN, HIV-1/2 Agn/[place]/27095, Drug Abuse Pnl 10 ... - Microbiology Neisseria gonorrhoeae DNA probe NOT DETECTED NOT DETECTED Lab Report: CBC W/DIFF, Comp. Metabolic Panel, Free Thyroxine (L), Thyro ... - Chemistry sodium, serum 138 mmol/L 625-557 8060/09/12 carbon dioxide, venous blood 29.9 mmol/L 21.0-32.0 [...] count 329 10^3/MM^3 10*3/mm3 142-424 Lab Report: UADIP W/MICRO, AUTO - Chemistry [...] 5.0-8.5 Encounters Code Encounter Date Provider Facility CPT-58441 Level 4 Est. Patient 22:21:42 CDT Dorothy Ayala [facility] CPT-70922 Level 4 Est. Patient 21:18:20 CDT Dorothy Ayala [facility] CPT-67142 Level 3 Est. Patient 10:06:58 CDT Dorothy Dovesegun [facility] CPT-30580 Level 3 Est. Patient 09:36:26 CDT Dorothy Ayala [facility] CPT-02083 Level 3 Est. Patient 16:55:26 CDT Cayetano Skinner MD [facility] CPT-36513 Level 2 Est. Patient 11:28:42 CDT Kimberly Brown MD [facility] CPT-80570 Level 3 Est. Patient 15:04:35 CDT Cayetano Skinner MD [facility] CPT-14025 Level 3 Est. Patient 15:07:05 BILLING ADJUDICATOR Cayetano Skinner MD [facility] CPT-34606 Level 3 Est. Patient 09:56:19 CDT Connie Reyes [facility] CPT-39865 Level 3 Est. Patient 12:31:18 BILLING ADJUDICATOR Jensen Santiago MD [facility] CPT-03472 Level 3 Est. Patient 10:35:02 BILLING ADJUDICATOR Cayetano Skinner MD [facility] CPT-92165 Level 3 Est. Patient 12:50:08 BILLING ADJUDICATOR Cayetano Skinner MD [facility] Procedures Code Procedure Name Date Entry Date Standard Description CPT-52186 Venipuncture Draw Fee 10:10:37 CDT CPT-95396 [facility] - [facility] 10:06:58 CDT CPT-79737 Bladder Scan 19:49:06 BILLING ADJUDICATOR CPT-69694 Spec Collection and Handling Fee 11:57:40 CDT CPT-J1020 Depo Medrol 60 mg (Methyl Prednisolone Acetate) 12:03:49 CDT CPT-27491 Abx/Therapy Injection 12:03:48 CDT CPT-J1020 Depo Medrol 60 mg (Methyl Prednisolone Acetate) 09:56:19 CDT CPT-76910 Spec Collection and Handling Fee 12:10:42 CDT CPT-PV Prev. Care Visit 12:10:42 CDT CPT-53040 Administration single or combination vaccine inc oral 16:45:52 BILLING ADJUDICATOR CPT-81624 Influenza split virus > age 3 16:45:52 BILLING ADJUDICATOR CPT-41981 Spec Collection and Handling Fee 10:35:02 BILLING ADJUDICATOR
--- OUTSIDE RECORDS SUMMARY | 2019-04-22 10:39 | XMS REPORT | Clinical Summary ---
Author Author Admin, [place] Organization [employer] Address Unknown Phone Unavailable Allergies, Adverse Reactions, [...] elsewhere classified Pruritus 698.9 Active Dorothy Ayala MORTGAGE PROTECTION SPECIALIST Unspecified pruritic disorder Urticaria 708.9 Active Dorothy Ayala MORTGAGE PROTECTION SPECIALIST Unspecified urticaria Hepatitis C 070.70 Active [...] Generic Name NDC Status Provider Patient Instruction TRAZODONE HCL 100 MG ORAL TABS 0.5 to 1 po qHS PRN Insomnia TRAZODONE HCL 03661102296 Active Joanne Molina RMA Active LUNESTA 1 MG ORAL TABS 1 po qHS PRN Insomnia ESZOPICLONE 63580760915 No Longer Active Joanne Molina RMA Active ZANTAC 150 MG TAB 1 tab po q am RANITIDINE HCL 58023816298 Active Dorothy Ayala MORTGAGE PROTECTION SPECIALIST Active ZYRTEC ALLERGY 10 MG CAPS 1 po am CETIRIZINE HCL 75423617137 Active Casperllvishal Scottmichellel MORTGAGE PROTECTION SPECIALIST Active PREDNISONE 20 MG TAB 2 tabs daily for 4 days, 1 tab daily for 4 days, 1/2 tab daily for 4 days PREDNISONE 63318307387 Active Caspersb Ayala APRN Active VENLAFAXINE HCL 75 MG ORAL TABS 1.5 po BID VENLAFAXINE HCL 53081762572 Active Cayetano Skinner MD Active TRAZODONE HCL 100 MG ORAL TABS 0.5 to 1 po qHS PRN Insomnia TRAZODONE HCL 43498127798 No Longer Active Cayetano Skinner MD Active SERTRALINE HCL 100 MG ORAL TABS 2 po qd SERTRALINE HCL 54241346046 No Longer Active Cayetano Skinner MD Active MACROBID CAPS 1 cap po qd. NITROFURANTOIN MONOHYD MACRO CAPS 50503957251 No Longer Active Kimberly Brown MD Active SUBOXONE 8-2 MG SL FILM 1 1/2 STRIPS QD BUPRENORPHINE HCL-NALOXONE HCL 16653183506 Active Cayetano Skinner MD Active CIPRO 500 MG TAB 1 tablet by mouth twice daily CIPROFLOXACIN HCL 26070643307 No Longer Active Cayetano Skinner MD Active MACROBID 100 MG ORAL CAPS Take one by mouth daily NITROFURANTOIN MONOHYD MACRO 58907808142 No Longer Active Kimberly Brown MD Active SUBOXONE 8-2 MG SUBL 2 po qd BUPRENORPHINE HCL-NALOXONE HCL 03458980237 No Longer Active Kimberly Brown MD Active HYDROCORTISONE 2.5 % EXT CREA Apply three times a day to affected area HYDROCORTISONE 45870490808 No Longer Active Kimberly Brown MD Active AUGMENTIN 500-125 MG TAB Take 1 capsule by mouth three times a day X 10 days AMOXICILLIN-POT CLAVULANATE 98602179112 No Longer Active Connie Reyes APRN Active BACTRIM DS 800-160 MG TAB 1 tab by mouth twice daily TRIMETHOPRIM-SULFAMETHOXAZOLE 76310825625 No Longer Active Cayetano Skinner MD Active ZITHROMAX Z-MARTI 250 MG TABS 2 today, then 1 daily for 4 days AZITHROMYCIN 65326657107 No Longer Active Jensen Santiago MD Active CETIRIZINE HCL 10 MG TABS ONE DAILY CETIRIZINE HCL 20403221724 No Longer Active Jensen Santiago MD Active KLONOPIN 1 MG TAB 1/2 tab bid CLONAZEPAM 14996469291 No Longer Active Jensen Santiago MD Active ZOLPIDEM TARTRATE 10 MG TABS 1 q hs as needed for sleep ZOLPIDEM TARTRATE 37220474332 No Longer Active Jensen Santiago MD Active CELEXA 40 MG TABS Take one by mouth daily CITALOPRAM HYDROBROMIDE 62794724151 No Longer Active Jensen Santiago MD Active AMOXICILLIN 875 MG TABS 1 tab by mouth twice daily AMOXICILLIN 54272375030 No Longer Active Cayetano Skinner MD Active FLAGYL 500 MG TAB 1 tablet by mouth two times daily METRONIDAZOLE 09986294954 No Longer Active Cayetano Skinner MD Active FLAGYL 500 MG TAB 1 tablet by mouth two times daily METRONIDAZOLE 60145490886 No Longer Active Cayetano Skinner MD Active BUSPIRONE HCL 15 MG TABS 1/2 PO BID BUSPIRONE HCL 74852485136 No Longer Active Cayetano Skinner MD Active BUSPIRONE HCL 15 MG TABS 1/2 PO BID BUSPIRONE HCL 15 MG TABS 104947 BUSPIRONE HCL Inactive CELEXA 40 MG TABS Take one by mouth daily CELEXA 40 MG TABS 101032 CITALOPRAM HYDROBROMIDE Inactive ZOLPIDEM TARTRATE 10 MG TABS 1 q hs as needed for sleep ZOLPIDEM TARTRATE 10 MG TABS 959721 ZOLPIDEM TARTRATE Inactive KLONOPIN 1 MG TAB 1/2 tab bid KLONOPIN 1 MG TAB 607886 CLONAZEPAM Inactive CETIRIZINE HCL 10 MG TABS ONE DAILY CETIRIZINE HCL 10 MG TABS 0269351 CETIRIZINE HCL Inactive HYDROCORTISONE 2.5 % EXT CREA Apply three times a day to affected area HYDROCORTISONE 2.5 % EXT CREA 439355 HYDROCORTISONE Inactive SUBOXONE 8-2 MG SUBL 2 po qd SUBOXONE 8-2 MG SUBL BUPRENORPHINE HCL-NALOXONE HCL Inactive CIPRO 500 MG TAB 1 tablet by mouth twice daily CIPRO 500 MG TAB 092852 CIPROFLOXACIN HCL Inactive MACROBID CAPS 1 cap po qd. MACROBID CAPS NITROFURANTOIN MONOHYD MACRO CAPS Inactive LUNESTA 1 MG ORAL TABS 1 po qHS PRN Insomnia LUNESTA 1 MG ORAL TABS 058845 ESZOPICLONE Inactive FLAGYL 500 MG TAB 1 tablet by mouth two times daily FLAGYL 500 MG TAB 360158 METRONIDAZOLE Inactive FLAGYL 500 MG TAB 1 tablet by mouth two times daily FLAGYL 500 MG TAB 102535 METRONIDAZOLE Inactive AMOXICILLIN 875 MG TABS 1 tab by mouth twice daily AMOXICILLIN 875 MG TABS 927108 AMOXICILLIN Inactive ZITHROMAX Z-MARTI 250 MG TABS 2 today, then 1 daily for 4 days ZITHROMAX Z-MARTI 250 MG TABS 093382 AZITHROMYCIN Inactive BACTRIM DS 800-160 MG TAB 1 tab by mouth twice daily BACTRIM DS 800-160 MG TAB 748858 TRIMETHOPRIM-SULFAMETHOXAZOLE Inactive AUGMENTIN 500-125 MG TAB Take 1 capsule by mouth three times a day X 10 days AUGMENTIN 500-125 MG TAB 141690 AMOXICILLIN-POT CLAVULANATE Inactive MACROBID 100 MG ORAL CAPS Take one by mouth daily MACROBID 100 MG ORAL CAPS 7806747 NITROFURANTOIN MONOHYD MACRO Inactive Immunizations Vaccine Administration Date Value Standard Description Seasonal influenza vaccine, injectable, containing preservative, for > 3 years old (Afluria, FluLaval, Fluzone, Fluvirin, Fluarix, Agriflu(>=18 yo)) Fluzone (>3 yrs.) [[id number]] Influenza, seasonal, injectable Vital Signs Date Name [...] temperature weight E&M 121.5 [lb_av] Weight Measured blood pressure, diastolic 79 [...] Range Description Lab Report: C-REACTIVE PROTEIN, HIV-1/2 Agn/[place]/01354, Drug Abuse Pnl 10 ... - Chemistry rapid plasma reagin antibody titer NON-REACTIVE NON-REACTIVE Lab Report: C-REACTIVE PROTEIN, HIV-1/2 Agn/[place]/23152, Drug Abuse Pnl 10 ... - Lab chlamydia DNA probe NOT DETECTED NOT DETECTED Lab Report: C-REACTIVE PROTEIN, HIV-1/2 Agn/[place]/57270, Drug Abuse Pnl 10 ... - Microbiology Neisseria gonorrhoeae DNA probe NOT DETECTED NOT DETECTED Lab Report: CBC W/DIFF, Comp. Metabolic Panel, Free Thyroxine (L), Thyro ... - Chemistry sodium, serum 138 mmol/L 977-726 1277/09/12 carbon dioxide, venous blood 29.9 mmol/L 21.0-32.0 [...] 5.0-8.5 Encounters Code Encounter Date Provider Facility CPT-50323 Level 4 Est. Patient 22:21:42 CDT Dorothy Ayala [facility] CPT-89778 Level 4 Est. Patient 21:18:20 CDT Dorothy Ayala [facility] CPT-25575 Level 3 Est. Patient 10:06:58 CDT Dorothy Ayala [facility] CPT-87942 Level 3 Est. Patient 09:36:26 CDT Dorothy Ayala [facility] CPT-83692 Level 3 Est. Patient 16:55:26 CDT Cayetano Skinner MD [facility] CPT-78036 Level 2 Est. Patient 11:28:42 CDT Kimberly Brown MD [facility] CPT-29415 Level 3 Est. Patient 15:04:35 CDT Cayetano Skinner MD [facility] CPT-99550 Level 3 Est. Patient 15:07:05 NUTRIENT MANAGEMENT SPECIALIST Cayetano Skinner MD [facility] CPT-03369 Level 3 Est. Patient 09:56:19 CDT Connie Lockecarmen HAMILTON [facility] CPT-03361 Level 3 Est. Patient 12:31:18 NUTRIENT MANAGEMENT SPECIALIST Jensen Santiago MD [facility] CPT-75070 Level 3 Est. Patient 10:35:02 NUTRIENT MANAGEMENT SPECIALIST Cayetano Skinner MD [facility] CPT-46610 Level 3 Est. Patient 12:50:08 NUTRIENT MANAGEMENT SPECIALIST Cayetano Skinner MD [facility] Procedures Code Procedure Name Date Entry Date Standard Description CPT-83685 Venipuncture Draw Fee 10:10:37 CDT CPT-01498 [facility] - [facility] 10:06:58 CDT CPT-04854 Bladder Scan 19:49:06 NUTRIENT MANAGEMENT SPECIALIST CPT-26259 Spec Collection and Handling Fee 11:57:40 CDT CPT-J1020 Depo Medrol 60 mg (Methyl Prednisolone Acetate) 12:03:49 CDT CPT-69545 Abx/Therapy Injection 12:03:48 CDT CPT-J1020 Depo Medrol 60 mg (Methyl Prednisolone Acetate) 09:56:19 CDT CPT-32484 Spec Collection and Handling Fee 12:10:42 CDT CPT-PV Prev. Care Visit 12:10:42 CDT CPT-46689 Administration single or combination vaccine inc oral 16:45:52 NUTRIENT MANAGEMENT SPECIALIST CPT-36033 Influenza split virus > age 3 16:45:52 NUTRIENT MANAGEMENT SPECIALIST CPT-39096 Spec Collection and Handling Fee 10:35:02 NUTRIENT MANAGEMENT SPECIALIST
--- OUTSIDE RECORDS SUMMARY | 2019-04-22 10:40 | XMS REPORT | Clinical Summary ---
Author Author Admin, [place] Organization [employer] Address Unknown Phone Unavailable Allergies, Adverse Reactions, [...] elsewhere classified Pruritus 698.9 Active Dorothy Ayala CUSTOMER RELATIONS SPECIALIST Unspecified pruritic disorder Urticaria 708.9 Active Dorothy Ayala CUSTOMER RELATIONS SPECIALIST Unspecified urticaria Hepatitis C 070.70 Active [...] 1 po qHS PRN Insomnia TRAZODONE HCL 25348260077 Active Joanne Molina RMA Active LUNESTA 1 MG ORAL TABS 1 po qHS PRN Insomnia ESZOPICLONE 15102945754 No Longer Active Joanne Molina RMA Active ZANTAC 150 MG TAB 1 tab po q am RANITIDINE HCL 12976619083 Active Dorothy Ayala CUSTOMER RELATIONS SPECIALIST Active ZYRTEC ALLERGY 10 MG CAPS 1 po am CETIRIZINE HCL 59681526653 Active Casperfarzanehvishal Scottmichellel CUSTOMER RELATIONS SPECIALIST Active PREDNISONE 20 MG TAB 2 tabs daily for 4 days, 1 tab daily for 4 days, 1/2 tab daily for 4 days PREDNISONE 79540991655 Active Dorothy Ayala APRN Active VENLAFAXINE HCL 75 MG ORAL TABS 1.5 po BID VENLAFAXINE HCL 18935998386 Active Cayetano Skinner MD Active TRAZODONE HCL 100 MG ORAL TABS 0.5 to 1 po qHS PRN Insomnia TRAZODONE HCL 54227164810 No Longer Active Cayetano Skinner MD Active SERTRALINE HCL 100 MG ORAL TABS 2 po qd SERTRALINE HCL 68604080284 No Longer Active Cayetano Skinner MD Active MACROBID CAPS 1 cap po qd. NITROFURANTOIN MONOHYD MACRO CAPS 80416794736 No Longer Active Kimberly Brown MD Active SUBOXONE 8-2 MG SL FILM 1 1/2 STRIPS QD BUPRENORPHINE HCL-NALOXONE HCL 19122548234 Active Cayetano Skinner MD Active CIPRO 500 MG TAB 1 tablet by mouth twice daily CIPROFLOXACIN HCL 92678926194 No Longer Active Cayetano Skinner MD Active MACROBID 100 MG ORAL CAPS Take one by mouth daily NITROFURANTOIN MONOHYD MACRO 43995174800 No Longer Active Kimberly Brown MD Active SUBOXONE 8-2 MG SUBL 2 po qd BUPRENORPHINE HCL-NALOXONE HCL 03640932927 No Longer Active Kimberly Brown MD Active HYDROCORTISONE 2.5 % EXT CREA Apply three times a day to affected area HYDROCORTISONE 34791501505 No Longer Active Kimberly Brown MD Active AUGMENTIN 500-125 MG TAB Take 1 capsule by mouth three times a day X 10 days AMOXICILLIN-POT CLAVULANATE 73520656504 No Longer Active Connie Reyes APRN Active BACTRIM DS 800-160 MG TAB 1 tab by mouth twice daily TRIMETHOPRIM-SULFAMETHOXAZOLE 99203116262 No Longer Active Cayetano Skinner MD Active ZITHROMAX Z-MARTI 250 MG TABS 2 today, then 1 daily for 4 days AZITHROMYCIN 96900946840 No Longer Active Jensen Santiago MD Active CETIRIZINE HCL 10 MG TABS ONE DAILY CETIRIZINE HCL 38414952090 No Longer Active Jenesn Santiago MD Active KLONOPIN 1 MG TAB 1/2 tab bid CLONAZEPAM 07709011400 No Longer Active Jensen Santiago MD Active ZOLPIDEM TARTRATE 10 MG TABS 1 q hs as needed for sleep ZOLPIDEM TARTRATE 02288812012 No Longer Active Jensen Santiago MD Active CELEXA 40 MG TABS Take one by mouth daily CITALOPRAM HYDROBROMIDE 72670939001 No Longer Active Jensen Santiago MD Active AMOXICILLIN 875 MG TABS 1 tab by mouth twice daily AMOXICILLIN 31250374602 No Longer Active Cayetano Skinner MD Active FLAGYL 500 MG TAB 1 tablet by mouth two times daily METRONIDAZOLE 96669513664 No Longer Active Cayetano Skinner MD Active FLAGYL 500 MG TAB 1 tablet by mouth two times daily METRONIDAZOLE 78939098930 No Longer Active Cayetano Skinner MD Active BUSPIRONE HCL 15 MG TABS 1/2 PO BID BUSPIRONE HCL 15723002969 No Longer Active Cayetano Skinner MD Active BUSPIRONE HCL 15 MG TABS 1/2 PO BID BUSPIRONE HCL 15 MG TABS 222392 BUSPIRONE HCL Inactive CELEXA 40 MG TABS Take one by mouth daily CELEXA 40 MG TABS 612102 CITALOPRAM HYDROBROMIDE Inactive ZOLPIDEM TARTRATE 10 MG TABS 1 q hs as needed for sleep ZOLPIDEM TARTRATE 10 MG TABS 645817 ZOLPIDEM TARTRATE Inactive KLONOPIN 1 MG TAB 1/2 tab bid KLONOPIN 1 MG TAB 123723 CLONAZEPAM Inactive CETIRIZINE HCL 10 MG TABS ONE DAILY CETIRIZINE HCL 10 MG TABS 1473930 CETIRIZINE HCL Inactive HYDROCORTISONE 2.5 % EXT CREA Apply three times a day to affected area HYDROCORTISONE 2.5 % EXT CREA 935472 HYDROCORTISONE Inactive SUBOXONE 8-2 MG SUBL 2 po qd SUBOXONE 8-2 MG SUBL BUPRENORPHINE HCL-NALOXONE HCL Inactive CIPRO 500 MG TAB 1 tablet by mouth twice daily CIPRO 500 MG TAB 651660 CIPROFLOXACIN HCL Inactive MACROBID CAPS 1 cap po qd. MACROBID CAPS NITROFURANTOIN MONOHYD MACRO CAPS Inactive LUNESTA 1 MG ORAL TABS 1 po qHS PRN Insomnia LUNESTA 1 MG ORAL TABS 220864 ESZOPICLONE Inactive FLAGYL 500 MG TAB 1 tablet by mouth two times daily FLAGYL 500 MG TAB 652040 METRONIDAZOLE Inactive FLAGYL 500 MG TAB 1 tablet by mouth two times daily FLAGYL 500 MG TAB 702618 METRONIDAZOLE Inactive AMOXICILLIN 875 MG TABS 1 tab by mouth twice daily AMOXICILLIN 875 MG TABS 894932 AMOXICILLIN Inactive ZITHROMAX Z-MARTI 250 MG TABS 2 today, then 1 daily for 4 days ZITHROMAX Z-MARTI 250 MG TABS 7342135 AZITHROMYCIN Inactive BACTRIM DS 800-160 MG TAB 1 tab by mouth twice daily BACTRIM DS 800-160 MG TAB 899926 TRIMETHOPRIM-SULFAMETHOXAZOLE Inactive AUGMENTIN 500-125 MG TAB Take 1 capsule by mouth three times a day X 10 days AUGMENTIN 500-125 MG TAB 943436 AMOXICILLIN-POT CLAVULANATE Inactive MACROBID 100 MG ORAL CAPS Take one by mouth daily MACROBID 100 MG ORAL CAPS 8180711 NITROFURANTOIN MONOHYD MACRO Inactive Immunizations Vaccine Administration Date Value Standard Description Seasonal influenza vaccine, injectable, containing preservative, for > 3 years old (Afluria, FluLaval, Fluzone, Fluvirin, Fluarix, Agriflu(>=18 yo)) Fluzone (>3 yrs.) [[id number]] Influenza, seasonal, injectable Vital Signs Date Name [...] Range Description Lab Report: C-REACTIVE PROTEIN, HIV-1/2 Agn/[place]/22550, Drug Abuse Pnl 10 ... - Chemistry rapid plasma reagin antibody titer NON-REACTIVE NON-REACTIVE Lab Report: C-REACTIVE PROTEIN, HIV-1/2 Agn/[place]/43305, Drug Abuse Pnl 10 ... - Lab chlamydia DNA probe NOT DETECTED NOT DETECTED Lab Report: C-REACTIVE PROTEIN, HIV-1/2 Agn/[place]/13468, Drug Abuse Pnl 10 ... - Microbiology Neisseria gonorrhoeae DNA probe NOT DETECTED NOT DETECTED Lab Report: CBC W/DIFF, Comp. Metabolic Panel, Free Thyroxine (L), Thyro ... - Chemistry sodium, serum 138 mmol/L 472-094 7620/09/12 carbon dioxide, venous blood 29.9 mmol/L 21.0-32.0 [...] 5.0-8.5 Encounters Code Encounter Date Provider Facility CPT-25112 Level 4 Est. Patient 22:21:42 CDT Dorothy Ayala [facility] CPT-72677 Level 4 Est. Patient 21:18:20 CDT Dorothy Ayala [facility] CPT-21463 Level 3 Est. Patient 10:06:58 CDT Dorothy Ayala [facility] CPT-93748 Level 3 Est. Patient 09:36:26 CDT Dorothy Ayala [facility] CPT-41828 Level 3 Est. Patient 16:55:26 CDT Cayetano Skinner MD [facility] CPT-23586 Level 2 Est. Patient 11:28:42 CDT Kimberly Brown MD [facility] CPT-93349 Level 3 Est. Patient 15:04:35 CDT Cayetano Skinner MD [facility] CPT-16469 Level 3 Est. Patient 15:07:05 GEOTHERMAL SYSTEM INSTALLER Cayetano Skinner MD [facility] CPT-84302 Level 3 Est. Patient 09:56:19 CDT Connie Lockecarmen HAMILTON [facility] CPT-26266 Level 3 Est. Patient 12:31:18 GEOTHERMAL SYSTEM INSTALLER [facility] CPT-59022 Level 3 Est. Patient 10:35:02 GEOTHERMAL SYSTEM INSTALLER Cayetano Sk[facility] CPT-36043 Level 3 Est. Patient 12:50:08 GEOTHERMAL SYSTEM INSTALLER Cayetano Skinner [facility] Procedures Code Procedure Name Date Entry Date Standard Description CPT-09339 Venipuncture Draw Fee 10:10:37 CDT CPT-87196 [facility] - [facility] 10:06:58 CDT CPT-87710 Bladder Scan 19:49:06 GEOTHERMAL SYSTEM INSTALLER CPT-76586 Spec Collection and Handling Fee 11:57:40 CDT CPT-J1020 Depo Medrol 60 mg (Methyl Prednisolone Acetate) 12:03:49 CDT CPT-39718 Abx/Therapy Injection 12:03:48 CDT CPT-J1020 Depo Medrol 60 mg (Methyl Prednisolone Acetate) 09:56:19 CDT CPT-03802 Spec Collection and Handling Fee 12:10:42 CDT CPT-PV Prev. Care Visit 12:10:42 CDT CPT-99540 Administration single or combination vaccine inc oral 16:45:52 GEOTHERMAL SYSTEM INSTALLER CPT-96383 Influenza split virus > age 3 16:45:52 GEOTHERMAL SYSTEM INSTALLER CPT-13316 Spec Collection and Handling Fee 10:35:02 GEOTHERMAL SYSTEM INSTALLER
--- OUTSIDE RECORDS SUMMARY | 2019-04-22 10:41 | XMS REPORT | Clinical Summary ---
Author Author Admin, [facility] Organization [facility] Address Unknown Phone Unavailable Allergies, Adverse Reactions, Alerts Allergy Name Reaction Description Start Date Severity Status Provider No Known Allergies Joanne Auguste RMA Conditions or Problems Problem Name Problem Code [...] 1 tab po q am RANITIDINE HCL 76984228303 Active Jillina Frazell COMPENSATION AND BENEFITS ANALYST Active ZYRTEC ALLERGY 10 MG CAPS 1 po am CETIRIZINE HCL 77313218073 Active Jillina Frazell COMPENSATION AND BENEFITS ANALYST Active PREDNISONE 20 MG TAB 2 tabs daily for 4 days, 1 tab daily for 4 days, 1/2 tab daily for 4 days PREDNISONE 86246112025 Active Dorothy Ayala APRN Active VENLAFAXINE HCL 75 MG ORAL TABS 1.5 po BID VENLAFAXINE HCL 77135358007 Active Cayetano Skinner MD Active TRAZODONE HCL 100 MG ORAL TABS 0.5 to 1 po qHS PRN Insomnia TRAZODONE HCL 40064346856 Active Cayetano Skinner MD Active SERTRALINE HCL 100 MG ORAL TABS 2 po qd SERTRALINE HCL 98826575028 No Longer Active Cayetano Skinner MD Active MACROBID CAPS 1 cap po qd. NITROFURANTOIN MONOHYD MACRO CAPS 08092309905 No Longer Active Kimberly Brown MD Active SUBOXONE 8-2 MG SL FILM 1 1/2 STRIPS QD BUPRENORPHINE HCL-NALOXONE HCL 25716436312 Active Cayetano Skinner MD Active CIPRO 500 MG TAB 1 tablet by mouth twice daily CIPROFLOXACIN HCL 54712736139 No Longer Active Cayetano Skinner MD Active MACROBID 100 MG ORAL CAPS Take one by mouth daily NITROFURANTOIN MONOHYD MACRO 05470589944 No Longer Active Kimberly Brown MD Active SUBOXONE 8-2 MG SUBL 2 po qd BUPRENORPHINE HCL-NALOXONE HCL 40474808864 No Longer Active Kimberly Brown MD Active HYDROCORTISONE 2.5 % EXT CREA Apply three times a day to affected area HYDROCORTISONE 41257910999 No Longer Active Kimberly Brown MD Active AUGMENTIN 500-125 MG TAB Take 1 capsule by mouth three times a day X 10 days AMOXICILLIN-POT CLAVULANATE 21316515248 No Longer Active Connie Reyes APRN Active BACTRIM DS 800-160 MG TAB 1 tab by mouth twice daily TRIMETHOPRIM-SULFAMETHOXAZOLE 08404859806 No Longer Active Cayetano Skinner MD Active ZITHROMAX Z-MARTI 250 MG TABS 2 today, then 1 daily for 4 days AZITHROMYCIN 90813732300 No Longer Active Jensen Santiago MD Active CETIRIZINE HCL 10 MG TABS ONE DAILY CETIRIZINE HCL 08481570693 No Longer Active Jensen Santiago MD Active KLONOPIN 1 MG TAB 1/2 tab bid CLONAZEPAM 24303397243 No Longer Active Jensen Santiago MD Active ZOLPIDEM TARTRATE 10 MG TABS 1 q hs as needed for sleep ZOLPIDEM TARTRATE 25589802523 No Longer Active Jensen Santiago MD Active CELEXA 40 MG TABS Take one by mouth daily CITALOPRAM HYDROBROMIDE 77208212375 No Longer Active Jensen Santiago MD Active AMOXICILLIN 875 MG TABS 1 tab by mouth twice daily AMOXICILLIN 94845991621 No Longer Active Cayetano Skinner MD Active FLAGYL 500 MG TAB 1 tablet by mouth two times daily METRONIDAZOLE 14027522364 No Longer Active Cayetano Skinner MD Active FLAGYL 500 MG TAB 1 tablet by mouth two times daily METRONIDAZOLE 41996746237 No Longer Active Cayetano Skinner MD Active BUSPIRONE HCL 15 MG TABS 1/2 PO BID BUSPIRONE HCL 69415622899 No Longer Active Cayetano Skinner MD Active MACROBID CAPS 1 cap po qd. MACROBID CAPS NITROFURANTOIN MONOHYD MACRO CAPS Inactive BACTRIM DS 800-160 MG TAB 1 tab by mouth twice daily BACTRIM DS 800-160 MG TAB 812606 TRIMETHOPRIM-SULFAMETHOXAZOLE Inactive CIPRO 500 MG TAB 1 tablet by mouth twice daily CIPRO 500 MG TAB 779580 CIPROFLOXACIN HCL Inactive FLAGYL 500 MG TAB 1 tablet by mouth two times daily FLAGYL 500 MG TAB 809002 METRONIDAZOLE Inactive FLAGYL 500 MG TAB 1 tablet by mouth two times daily FLAGYL 500 MG TAB 127243 METRONIDAZOLE Inactive HYDROCORTISONE 2.5 % EXT CREA Apply three times a day to affected area HYDROCORTISONE 2.5 % EXT CREA 011138 HYDROCORTISONE Inactive KLONOPIN 1 MG TAB 1/2 tab bid KLONOPIN 1 MG TAB 466298 CLONAZEPAM Inactive MACROBID 100 MG ORAL CAPS Take one by mouth daily MACROBID 100 MG ORAL CAPS 2630491 NITROFURANTOIN MONOHYD MACRO Inactive CETIRIZINE HCL 10 MG TABS ONE DAILY CETIRIZINE HCL 10 MG TABS 3118511 CETIRIZINE HCL Inactive ZOLPIDEM TARTRATE 10 MG TABS 1 q hs as needed for sleep ZOLPIDEM TARTRATE 10 MG TABS 610968 ZOLPIDEM TARTRATE Inactive AUGMENTIN 500-125 MG TAB Take 1 capsule by mouth three times a day X 10 days AUGMENTIN 500-125 MG TAB 299558 AMOXICILLIN-POT CLAVULANATE Inactive BUSPIRONE HCL 15 MG TABS 1/2 PO BID BUSPIRONE HCL 15 MG TABS 353056 BUSPIRONE HCL Inactive AMOXICILLIN 875 MG TABS 1 tab by mouth twice daily AMOXICILLIN 875 MG TABS 762244 AMOXICILLIN Inactive CELEXA 40 MG TABS Take one by mouth daily CELEXA 40 MG TABS 659581 CITALOPRAM HYDROBROMIDE Inactive ZITHROMAX Z-MARTI 250 MG TABS 2 today, then 1 daily for 4 days ZITHROMAX Z-MARTI 250 MG TABS 0818506 AZITHROMYCIN Inactive SUBOXONE 8-2 MG SUBL 2 po qd SUBOXONE 8-2 MG SUBL BUPRENORPHINE HCL-NALOXONE HCL Inactive Immunizations Vaccine Administration Date Value Standard Description Seasonal influenza vaccine, injectable, containing preservative, for > 3 years old (Afluria, FluLaval, Fluzone, Fluvirin, Fluarix, Agriflu(>=18 yo)) Fluzone (>3 yrs.) [[id number]] Influenza, seasonal, injectable Vital Signs Date Name Value Unit Range Description blood pressure, diastolic 79 mm[Hg] BP montejo [...] Measured blood pressure, diastolic 90 mm[Hg] BP montjeo blood pressure, systolic 123 mm[Hg] BP sys pulse rate E&M 90 /min Heart rate temperature E&M 98.4 [degF] Body temperature weight E&M 115 [lb_av] Weight Measured Diagnostic Results Date Name Value Unit Range Description Lab Report: CBC W/DIFF, Comp. Metabolic Panel, Free Thyroxine (L), Thyro ... - Chemistry sodium, serum 138 mmol/L 816-820 6370/09/12 carbon dioxide, venous blood 29.9 mmol/L 21.0-32.0 [...] 5.0-8.5 Encounters Code Encounter Date Provider Facility CPT-29493 Level 3 Est. Patient 10:06:58 CDT Dorothy Ayala [facility] CPT-80696 Level 3 Est. Patient 09:36:26 CDT Dorothy Ayala [facility] CPT-23938 Level 3 Est. Patient 16:55:26 CDT Cayetano Skinner MD [facility] CPT-65947 Level 2 Est. Patient 11:28:42 CDT Kimberly Brown MD [facility] CPT-91614 Level 3 Est. Patient 15:04:35 CDT Cayetano Skinner MD [facility] CPT-42013 Level 3 Est. Patient 15:07:05 JACKSCREW WORKER Cayetano Skinner MD [facility] CPT-93601 Level 3 Est. Patient 09:56:19 CDT Connie Reyes [facility] CPT-68362 Level 3 Est. Patient 12:31:18 JACKSCREW WORKER Jensen Santiago MD [facility] CPT-37762 Level 3 Est. Patient 10:35:02 JACKSCREW WORKER Cayetano Skinner MD [facility] CPT-31470 Level 3 Est. Patient 12:50:08 JACKSCREW WORKER Cayetano Skinner MD [facility] Procedures Code Procedure Name Date Entry Date Standard Description CPT-97708 Venipuncture Draw Fee 10:10:37 CDT CPT-77994 [facility] 10:06:58 CDT CPT-45673 Bladder Scan 19:49:06 JACKSCREW WORKER CPT-61764 Spec Collection and Handling Fee 11:57:40 CDT CPT-J1020 Depo Medrol 60 mg (Methyl Prednisolone Acetate) 12:03:49 CDT CPT-79981 Abx/Therapy Injection 12:03:48 CDT CPT-J1020 Depo Medrol 60 mg (Methyl Prednisolone Acetate) 09:56:19 CDT CPT-53620 Spec Collection and Handling Fee 12:10:42 CDT CPT-PV Prev. Care Visit 12:10:42 CDT CPT-96920 Administration single or combination vaccine inc oral 16:45:52 JACKSCREW WORKER CPT-15834 Influenza split virus > age 3 16:45:52 JACKSCREW WORKER CPT-91378 Spec Collection and Handling Fee 10:35:02 JACKSCREW WORKER
--- OUTSIDE RECORDS SUMMARY | 2019-04-22 10:41 | XMS REPORT | Clinical Summary ---
Author Author Admin, [place] Organization [employer] Address Unknown Phone Unavailable Allergies, Adverse Reactions, [...] Generic Name NDC Status Provider Patient Instruction LUNESTA 1 MG ORAL TABS 1 po qHS PRN Insomnia ESZOPICLONE 90430867645 Active Cayetano Skinner MD Active ZANTAC 150 MG TAB 1 tab po q am RANITIDINE HCL 55097832272 Active Dorothy Ayala APRN Active ZYRTEC ALLERGY 10 MG CAPS 1 po am CETIRIZINE HCL 93726014217 Active Dorothy Ayala APRN Active PREDNISONE 20 MG TAB 2 tabs daily for 4 days, 1 tab daily for 4 days, 1/2 tab daily for 4 days PREDNISONE 43444836602 Active Dorothy Ayala APRN Active VENLAFAXINE HCL 75 MG ORAL TABS 1.5 po BID VENLAFAXINE HCL 85366876932 Active Cayetano Skinner MD Active TRAZODONE HCL 100 MG ORAL TABS 0.5 to 1 po qHS PRN Insomnia TRAZODONE HCL 08141247412 No Longer Active Cayetano Skinner MD Active SERTRALINE HCL 100 MG ORAL TABS 2 po qd SERTRALINE HCL 33986347431 No Longer Active Cayetano Skinner MD Active MACROBID CAPS 1 cap po qd. NITROFURANTOIN MONOHYD MACRO CAPS 51916882778 No Longer Active Kimberly Brown MD Active SUBOXONE 8-2 MG SL FILM 1 1/2 STRIPS QD BUPRENORPHINE HCL-NALOXONE HCL 10617413087 Active Cayetano Skinner MD Active CIPRO 500 MG TAB 1 tablet by mouth twice daily CIPROFLOXACIN HCL 29181540269 No Longer Active Cayetano Skinner MD Active MACROBID 100 MG ORAL CAPS Take one by mouth daily NITROFURANTOIN MONOHYD MACRO 27405817076 No Longer Active Kimberly Brown MD Active SUBOXONE 8-2 MG SUBL 2 po qd BUPRENORPHINE HCL-NALOXONE HCL 47565362685 No Longer Active Kimberly Brown MD Active HYDROCORTISONE 2.5 % EXT CREA Apply three times a day to affected area HYDROCORTISONE 61550745174 No Longer Active Kimberly Brown MD Active AUGMENTIN 500-125 MG TAB Take 1 capsule by mouth three times a day X 10 days AMOXICILLIN-POT CLAVULANATE 28717833089 No Longer Active Connie Reyes APRN Active BACTRIM DS 800-160 MG TAB 1 tab by mouth twice daily TRIMETHOPRIM-SULFAMETHOXAZOLE 73442296946 No Longer Active Cayetano Skinner MD Active ZITHROMAX Z-MARTI 250 MG TABS 2 today, then 1 daily for 4 days AZITHROMYCIN 95027858488 No Longer Active Jensen Santiago MD Active CETIRIZINE HCL 10 MG TABS ONE DAILY CETIRIZINE HCL 30580454791 No Longer Active Jensen Santiago MD Active KLONOPIN 1 MG TAB 1/2 tab bid CLONAZEPAM 04588703658 No Longer Active Jensen Santiago MD Active ZOLPIDEM TARTRATE 10 MG TABS 1 q hs as needed for sleep ZOLPIDEM TARTRATE 65008963049 No Longer Active Jensen Santiago MD Active CELEXA 40 MG TABS Take one by mouth daily CITALOPRAM HYDROBROMIDE 65278013273 No Longer Active Jensen Santiago MD Active AMOXICILLIN 875 MG TABS 1 tab by mouth twice daily AMOXICILLIN 81582753636 No Longer Active Cayetano Skinner MD Active FLAGYL 500 MG TAB 1 tablet by mouth two times daily METRONIDAZOLE 19121309445 No Longer Active Cayetano Skinner MD Active FLAGYL 500 MG TAB 1 tablet by mouth two times daily METRONIDAZOLE 76013470986 No Longer Active Cayetano Skinner MD Active BUSPIRONE HCL 15 MG TABS 1/2 PO BID BUSPIRONE HCL 80125826227 No Longer Active Cayetano Skinner MD Active BUSPIRONE HCL 15 MG TABS 1/2 PO BID BUSPIRONE HCL 15 MG TABS 341589 BUSPIRONE HCL Inactive CELEXA 40 MG TABS Take one by mouth daily CELEXA 40 MG TABS 750661 CITALOPRAM HYDROBROMIDE Inactive ZOLPIDEM TARTRATE 10 MG TABS 1 q hs as needed for sleep ZOLPIDEM TARTRATE 10 MG TABS 170900 ZOLPIDEM TARTRATE Inactive KLONOPIN 1 MG TAB 1/2 tab bid KLONOPIN 1 MG TAB 826284 CLONAZEPAM Inactive CETIRIZINE HCL 10 MG TABS ONE DAILY CETIRIZINE HCL 10 MG TABS 9246328 CETIRIZINE HCL Inactive HYDROCORTISONE 2.5 % EXT CREA Apply three times a day to affected area HYDROCORTISONE 2.5 % EXT CREA 728469 HYDROCORTISONE Inactive SUBOXONE 8-2 MG SUBL 2 po qd SUBOXONE 8-2 MG SUBL BUPRENORPHINE HCL-NALOXONE HCL Inactive CIPRO 500 MG TAB 1 tablet by mouth twice daily CIPRO 500 MG TAB 822690 CIPROFLOXACIN HCL Inactive MACROBID CAPS 1 cap po qd. MACROBID CAPS NITROFURANTOIN MONOHYD MACRO CAPS Inactive FLAGYL 500 MG TAB 1 tablet by mouth two times daily FLAGYL 500 MG TAB 178341 METRONIDAZOLE Inactive FLAGYL 500 MG TAB 1 tablet by mouth two times daily FLAGYL 500 MG TAB 317293 METRONIDAZOLE Inactive AMOXICILLIN 875 MG TABS 1 tab by mouth twice daily AMOXICILLIN 875 MG TABS 688950 AMOXICILLIN Inactive ZITHROMAX Z-MARTI 250 MG TABS 2 today, then 1 daily for 4 days ZITHROMAX Z-MARTI 250 MG TABS 1736006 AZITHROMYCIN Inactive BACTRIM DS 800-160 MG TAB 1 tab by mouth twice daily BACTRIM DS 800-160 MG TAB 530990 TRIMETHOPRIM-SULFAMETHOXAZOLE Inactive AUGMENTIN 500-125 MG TAB Take 1 capsule by mouth three times a day X 10 days AUGMENTIN 500-125 MG TAB 419696 AMOXICILLIN-POT CLAVULANATE Inactive MACROBID 100 MG ORAL CAPS Take one by mouth daily MACROBID 100 MG ORAL CAPS 4311098 NITROFURANTOIN MONOHYD MACRO Inactive Immunizations Vaccine Administration Date Value Standard Description Seasonal influenza vaccine, injectable, containing preservative, for > 3 years old (Afluria, FluLaval, Fluzone, Fluvirin, Fluarix, Agriflu(>=18 yo)) Fluzone (>3 yrs.) [[id number]] Influenza, seasonal, injectable Vital Signs Date Name [...] Range Description Lab Report: C-REACTIVE PROTEIN, HIV-1/2 Agn/[place]/69378, Drug Abuse Pnl 10 ... - Chemistry rapid plasma reagin antibody titer NON-REACTIVE NON-REACTIVE Lab Report: C-REACTIVE PROTEIN, HIV-1/2 Agn/[place]/45970, Drug Abuse Pnl 10 ... - Lab chlamydia DNA probe NOT DETECTED NOT DETECTED Lab Report: C-REACTIVE PROTEIN, HIV-1/2 Agn/[place]/16848, Drug Abuse Pnl 10 ... - Microbiology Neisseria gonorrhoeae DNA probe NOT DETECTED NOT DETECTED Lab Report: CBC W/DIFF, Comp. Metabolic Panel, Free Thyroxine (L), Thyro ... - Chemistry sodium, serum 138 mmol/L 892-021 3965/09/12 carbon dioxide, venous blood 29.9 mmol/L 21.0-32.0 [...] 5.0-8.5 Encounters Code Encounter Date Provider Facility CPT-47814 Level 4 Est. Patient 22:21:42 CDT Dorothy Ayala [facility] CPT-90561 Level 4 Est. Patient 21:18:20 CDT Dorothy Ayala [facility] CPT-35978 Level 3 Est. Patient 10:06:58 CDT Dorothy Ayala [facility] CPT-08362 Level 3 Est. Patient 09:36:26 CDT Dorothy Ayala [facility] CPT-14431 Level 3 Est. Patient 16:55:26 CDT Cayetano Skinner MD [facility] CPT-89953 Level 2 Est. Patient 11:28:42 CDT Kimberly Brown MD [facility] CPT-82146 Level 3 Est. Patient 15:04:35 CDT Cayetano Skinner MD [facility] CPT-08904 Level 3 Est. Patient 15:07:05 WORKER'S COMPENSATION CLAIMS EXAMINER Cayetano Skinner MD [facility] CPT-54027 Level 3 Est. Patient 09:56:19 CDT Connie Reyes [facility] CPT-71228 Level 3 Est. Patient 12:31:18 WORKER'S COMPENSATION CLAIMS EXAMINER Jensen Santiago MD [facility] CPT-70519 Level 3 Est. Patient 10:35:02 WORKER'S COMPENSATION CLAIMS EXAMINER Cayetano Skinner MD [facility] CPT-66359 Level 3 Est. Patient 12:50:08 WORKER'S COMPENSATION CLAIMS EXAMINER Cayetano Skinner MD [facility] Procedures Code Procedure Name Date Entry Date Standard Description CPT-67798 Venipuncture Draw Fee 10:10:37 CDT CPT-89573 [facility] - [facility] 10:06:58 CDT CPT-76685 Bladder Scan 19:49:06 WORKER'S COMPENSATION CLAIMS EXAMINER CPT-14218 Spec Collection and Handling Fee 11:57:40 CDT CPT-J1020 Depo Medrol 60 mg (Methyl Prednisolone Acetate) 12:03:49 CDT CPT-68351 Abx/Therapy Injection 12:03:48 CDT CPT-J1020 Depo Medrol 60 mg (Methyl Prednisolone Acetate) 09:56:19 CDT CPT-97970 Spec Collection and Handling Fee 12:10:42 CDT CPT-PV Prev. Care Visit 12:10:42 CDT CPT-02607 Administration single or combination vaccine inc oral 16:45:52 WORKER'S COMPENSATION CLAIMS EXAMINER CPT-76408 Influenza split virus > age 3 16:45:52 WORKER'S COMPENSATION CLAIMS EXAMINER CPT-34858 Spec Collection and Handling Fee 10:35:02 WORKER'S COMPENSATION CLAIMS EXAMINER
[2019-04-22 10:42] LABS: BILIRUBIN,URINE NEGATIVE (NEGATIVE); CLARITY,URINE CLEAR; COLOR,URINE YELLOW; GLUCOSE, URINE (UA) NEGATIVE (NEGATIVE); KETONES,URINE 2+ (NEGATIVE); LEUKOCYTE ESTERASE ,URINE 1+ (NEGATIVE); NITRITE,URINE NEGATIVE (NEGATIVE); PH,URINE 7 (5-9); PROTEIN,URINE NEGATIVE (NEGATIVE); UROBILINOGEN,URINE NORMAL (NORMAL)
--- OUTSIDE RECORDS SUMMARY | 2019-04-22 10:42 | XMS REPORT | Clinical Summary ---
Author Author Admin, [facility] Organization [facility] Address Unknown Phone Unavailable Allergies, Adverse Reactions, [...] Skinner MD Depressive disorder, not elsewhere classified CERVICAL CANCER ICD-V10.41 Inactive Cayetano Skinner MD FH COLON CANCER ICD-V16.0 Inactive Cayetano Skinner MD INGUINAL LYMPHADENOPATHY, LEFT ICD-785.6 Inactive Cayetano Skinner MD ABNORMAL PAP SMEAR ICD-V13.29 Inactive Cayetano Skinner MD VAGINAL DISCHARGE ICD-623.5 Inactive Cayetano Skinner MD DRUG ABUSE ICD-305.90 Inactive Cayetano Skinner MD PHARYNGITIS ICD-462 Inactive Cayetano Skinner MD Sinusitis, acute ICD-461.9 Inactive Cayetano Skinner MD Pre-employment exam ICD-V70.5 Inactive Cayetano Skinner MD Dysuria ICD-788.1 Inactive Cayetano Skinner MD DEPRESSION ICD-311 Inactive Cayetano Skinner MD Medication List Medication Instructions Start Date Stop Date Generic Name NDC Status Provider Patient Instruction VENLAFAXINE HCL 37.5 MG ORAL TABS 1 po qHS x 5 days, then 1 po BID VENLAFAXINE HCL 84616357149 Active Cayetano Skinner MD Active SERTRALINE HCL 100 MG ORAL TABS 2 po qd SERTRALINE HCL 54491823504 No Longer Active Cayetano Skinner MD Active MACROBID CAPS 1 cap po qd. NITROFURANTOIN MONOHYD MACRO CAPS 08615067972 No Longer Active Kimberly Brown MD Active SUBOXONE 8-2 MG SL FILM 1 1/2 STRIPS QD BUPRENORPHINE HCL-NALOXONE HCL 50241171382 Active Cayetano Skinner MD Active CIPRO 500 MG TAB 1 tablet by mouth twice daily CIPROFLOXACIN HCL 89051907410 No Longer Active Cayetano Skinner MD Active MACROBID 100 MG ORAL CAPS Take one by mouth daily NITROFURANTOIN MONOHYD MACRO 85254803721 No Longer Active Kimberly Brown MD Active SUBOXONE 8-2 MG SUBL 2 po qd BUPRENORPHINE HCL-NALOXONE HCL 14336120189 No Longer Active Kimberly Brown MD Active HYDROCORTISONE 2.5 % EXT CREA Apply three times a day to affected area HYDROCORTISONE 76640816458 No Longer Active Kimberly Brown MD Active AUGMENTIN 500-125 MG TAB Take 1 capsule by mouth three times a day X 10 days AMOXICILLIN-POT CLAVULANATE 20153489676 No Longer Active Connie Reyes APRN Active BACTRIM DS 800-160 MG TAB 1 tab by mouth twice daily TRIMETHOPRIM-SULFAMETHOXAZOLE 14533655693 No Longer Active Cayetano Skinner MD Active ZITHROMAX Z-MARTI 250 MG TABS 2 today, then 1 daily for 4 days AZITHROMYCIN 70481418175 No Longer Active Jensen Santiago MD Active CETIRIZINE HCL 10 MG TABS ONE DAILY CETIRIZINE HCL 23781490943 No Longer Active Jensen Santiago MD Active KLONOPIN 1 MG TAB 1/2 tab bid CLONAZEPAM 28478128835 No Longer Active Jensen Santiago MD Active ZOLPIDEM TARTRATE 10 MG TABS 1 q hs as needed for sleep ZOLPIDEM TARTRATE 91780351979 No Longer Active Jensen Santiago MD Active CELEXA 40 MG TABS Take one by mouth daily CITALOPRAM HYDROBROMIDE 67594595064 No Longer Active Jensen Santiago MD Active AMOXICILLIN 875 MG TABS 1 tab by mouth twice daily AMOXICILLIN 73503991257 No Longer Active Cayetano Skinner MD Active FLAGYL 500 MG TAB 1 tablet by mouth two times daily METRONIDAZOLE 94226486287 No Longer Active Cayetano Skinner MD Active FLAGYL 500 MG TAB 1 tablet by mouth two times daily METRONIDAZOLE 44077722198 No Longer Active Cayetano Skinner MD Active BUSPIRONE HCL 15 MG TABS 1/2 PO BID BUSPIRONE HCL 74881556204 No Longer Active Cayetano Skinner MD Active BUSPIRONE HCL 15 MG TABS 1/2 PO BID BUSPIRONE HCL 15 MG TABS 487076 BUSPIRONE HCL Inactive CELEXA 40 MG TABS Take one by mouth daily CELEXA 40 MG TABS 727982 CITALOPRAM HYDROBROMIDE Inactive ZOLPIDEM TARTRATE 10 MG TABS 1 q hs as needed for sleep ZOLPIDEM TARTRATE 10 MG TABS 456832 ZOLPIDEM TARTRATE Inactive KLONOPIN 1 MG TAB 1/2 tab bid KLONOPIN 1 MG TAB 628664 CLONAZEPAM Inactive CETIRIZINE HCL 10 MG TABS ONE DAILY CETIRIZINE HCL 10 MG TABS 9450507 CETIRIZINE HCL Inactive HYDROCORTISONE 2.5 % EXT CREA Apply three times a day to affected area HYDROCORTISONE 2.5 % EXT CREA 652754 HYDROCORTISONE Inactive SUBOXONE 8-2 MG SUBL 2 po qd SUBOXONE 8-2 MG SUBL BUPRENORPHINE HCL-NALOXONE HCL Inactive CIPRO 500 MG TAB 1 tablet by mouth twice daily CIPRO 500 MG TAB 273813 CIPROFLOXACIN HCL Inactive MACROBID CAPS 1 cap po qd. MACROBID CAPS NITROFURANTOIN MONOHYD MACRO CAPS Inactive FLAGYL 500 MG TAB 1 tablet by mouth two times daily FLAGYL 500 MG TAB 329157 METRONIDAZOLE Inactive FLAGYL 500 MG TAB 1 tablet by mouth two times daily FLAGYL 500 MG TAB 112886 METRONIDAZOLE Inactive AMOXICILLIN 875 MG TABS 1 tab by mouth twice daily AMOXICILLIN 875 MG TABS 790082 AMOXICILLIN Inactive ZITHROMAX Z-MARTI 250 MG TABS 2 today, then 1 daily for 4 days ZITHROMAX Z-MARTI 250 MG TABS 8160862 AZITHROMYCIN Inactive BACTRIM DS 800-160 MG TAB 1 tab by mouth twice daily BACTRIM DS 800-160 MG TAB 188115 TRIMETHOPRIM-SULFAMETHOXAZOLE Inactive AUGMENTIN 500-125 MG TAB Take 1 capsule by mouth three times a day X 10 days AUGMENTIN 500-125 MG TAB 137905 AMOXICILLIN-POT CLAVULANATE Inactive MACROBID 100 MG ORAL CAPS Take one by mouth daily MACROBID 100 MG ORAL CAPS 9970983 NITROFURANTOIN MONOHYD MACRO Inactive Immunizations Vaccine Administration Date Value Standard Description Seasonal influenza vaccine, injectable, containing preservative, for > 3 years old (Afluria, FluLaval, Fluzone, Fluvirin, Fluarix, Agriflu(>=18 yo)) Fluzone (>3 yrs.) [[id number]] Influenza, seasonal, injectable Vital Signs Date Name [...] temperature weight E&M 115 [lb_av] Weight Measured Encounters Code Encounter Date Provider Facility CPT-49840 Level 3 Est. Patient 16:55:26 CDT Cayetano Skinner MD [facility] CPT-36854 Level 2 Est. Patient 11:28:42 CDT Kimberly Brown MD [facility] CPT-71730 Level 3 Est. Patient 15:04:35 CDT Cayetano Skinner MD [facility] CPT-24468 Level 3 Est. 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 Patient 09:56:19 CDT Connie Reyes APRN [facility] CPT-35681 Level 3 Est. Patient 12:31:18 DRILLING MACHINE OPERATOR Jensen Santiago MD [facility] CPT-14652 Level 3 Est. Patient 10:35:02 DRILLING MACHINE OPERATOR Cayetano Skinner MD [facility] CPT-28648 Level 3 Est. Patient 12:50:08 DRILLING MACHINE OPERATOR Caeytano Skinner MD [facility] Procedures Code Procedure Name Date Entry Date Standard Description CPT-41509 Bladder Scan 19:49:06 DRILLING MACHINE OPERATOR CPT-16710 Spec Collection and Handling Fee 11:57:40 CDT CPT-J1020 Depo Medrol 60 mg (Methyl Prednisolone Acetate) 12:03:49 CDT CPT-62610 Abx/Therapy Injection 12:03:48 CDT CPT-J1020 Depo Medrol 60 mg (Methyl Prednisolone Acetate) 09:56:19 CDT CPT-59732 Spec Collection and Handling Fee 12:10:42 CDT CPT-PV Prev. Care Visit 12:10:42 CDT CPT-91539 Administration single or combination vaccine inc oral 16:45:52 DRILLING MACHINE OPERATOR CPT-35553 Influenza split virus > age 3 16:45:52 DRILLING MACHINE OPERATOR CPT-38357 Spec Collection and Handling Fee 10:35:02 DRILLING MACHINE OPERATOR
--- OUTSIDE RECORDS SUMMARY | 2019-04-22 10:42 | XMS REPORT | Clinical Summary ---
Author Author Admin, [place] Organization [place] Address Unknown Phone Unavailable Allergies, Adverse Reactions, [...] sinusitis, unspecified Pre-employment exam V70.5 Resolved Cayetano Skinnre MD Health examination of defined subpopulations U T I-Recurrent Active Kimberly Brown MD Urinary tract infection, site not specified Depression 311 Active Cayetano Skinner MD Depressive disorder, not elsewhere classified Pruritus 698.9 Active Fadiaina Derrelll ELECTRONIC ASSEMBLER Unspecified pruritic disorder Urticaria 708.9 Active Dorothy [...] 1 tab po q am RANITIDINE HCL 88938829864 Active Jillina Frazell ELECTRONIC ASSEMBLER Active ZYRTEC ALLERGY 10 MG CAPS 1 po am CETIRIZINE HCL 59866546758 Active Jillina Frazell ELECTRONIC ASSEMBLER Active PREDNISONE 20 MG TAB 2 tabs daily for 4 days, 1 tab daily for 4 days, /2 tab daily for 4 days PREDNISONE 49389047106 Active Dorothy Scotttamara [place] Active VENLAFAXINE HCL 75 MG ORAL TABS 1.5 po BID VENLAFAXINE HCL 19764534856 Active Cayetano Skinner MD Active TRAZODONE HCL 100 MG ORAL TABS 0.5 to 1 po qHS PRN Insomnia TRAZODONE HCL 54507131993 Active Cayetano Skinner MD Active SERTRALINE HCL 100 MG ORAL TABS 2 po qd SERTRALINE HCL 52470237282 No Longer Active Cayetano Skinner MD Active MACROBID CAPS 1 cap po qd. NITROFURANTOIN MONOHYD MACRO CAPS 96943490385 No Longer Active Kimberly Brown MD Active SUBOXONE 8-2 MG SL FILM 1 1/2 STRIPS QD BUPRENORPHINE HCL-NALOXONE HCL 70166862390 Active Cayetano Skinner MD Active CIPRO 500 MG TAB 1 tablet by mouth twice daily CIPROFLOXACIN HCL 24077280202 No Longer Active Cayetano Skinner MD Active MACROBID 100 MG ORAL CAPS Take one by mouth daily NITROFURANTOIN MONOHYD MACRO 07573259424 No Longer Active Kimberly Brown MD Active SUBOXONE 8-2 MG SUBL 2 po qd BUPRENORPHINE HCL-NALOXONE HCL 19886267113 No Longer Active Kimberly Brown MD Active HYDROCORTISONE 2.5 % EXT CREA Apply three times a day to affected area HYDROCORTISONE 60008334428 No Longer Active Kimberly Brown MD Active AUGMENTIN 500-125 MG TAB Take 1 capsule by mouth three times a day X 10 days AMOXICILLIN-POT CLAVULANATE 41473175934 No Longer Active Connie Reyes APRN Active BACTRIM DS 800-160 MG TAB 1 tab by mouth twice daily TRIMETHOPRIM-SULFAMETHOXAZOLE 55377292868 No Longer Active Cayetano Skinner MD Active ZITHROMAX Z-MARTI 250 MG TABS 2 today, then 1 daily for 4 days AZITHROMYCIN 64738724338 No Longer Active Jensen Santiago MD Active CETIRIZINE HCL 10 MG TABS ONE DAILY CETIRIZINE HCL 81227770180 No Longer Active Jensen Santiago MD Active KLONOPIN 1 MG TAB 1/2 tab bid CLONAZEPAM 98349883164 No Longer Active Jensen Santiago MD Active ZOLPIDEM TARTRATE 10 MG TABS 1 q hs as needed for sleep ZOLPIDEM TARTRATE 96611497288 No Longer Active Jensen Santiago MD Active CELEXA 40 MG TABS Take one by mouth daily CITALOPRAM HYDROBROMIDE 80607752151 No Longer Active Jensen Santiago MD Active AMOXICILLIN 875 MG TABS 1 tab by mouth twice daily AMOXICILLIN 30738927677 No Longer Active Cayetano Skinner MD Active FLAGYL 500 MG TAB 1 tablet by mouth two times daily METRONIDAZOLE 44361184090 No Longer Active Cayetano Skinner MD Active FLAGYL 500 MG TAB 1 tablet by mouth two times daily METRONIDAZOLE 06672429046 No Longer Active Cayetano Skinner MD Active BUSPIRONE HCL 15 MG TABS 1/2 PO BID BUSPIRONE HCL 89799234495 No Longer Active Cayetano Skinner MD Active BUSPIRONE HCL 15 MG TABS 1/2 PO BID BUSPIRONE HCL 15 MG TABS 234570 BUSPIRONE HCL Inactive CELEXA 40 MG TABS Take one by mouth daily CELEXA 40 MG TABS 607083 CITALOPRAM HYDROBROMIDE Inactive ZOLPIDEM TARTRATE 10 MG TABS 1 q hs as needed for sleep ZOLPIDEM TARTRATE 10 MG TABS 296435 ZOLPIDEM TARTRATE Inactive KLONOPIN 1 MG TAB 1/2 tab bid KLONOPIN 1 MG TAB 353205 CLONAZEPAM Inactive CETIRIZINE HCL 10 MG TABS ONE DAILY CETIRIZINE HCL 10 MG TABS 7273117 CETIRIZINE HCL Inactive HYDROCORTISONE 2.5 % EXT CREA Apply three times a day to affected area HYDROCORTISONE 2.5 % EXT CREA 022566 HYDROCORTISONE Inactive SUBOXONE 8-2 MG SUBL 2 po qd SUBOXONE 8-2 MG SUBL BUPRENORPHINE HCL-NALOXONE HCL Inactive CIPRO 500 MG TAB 1 tablet by mouth twice daily CIPRO 500 MG TAB 314754 CIPROFLOXACIN HCL Inactive MACROBID CAPS 1 cap po qd. MACROBID CAPS NITROFURANTOIN MONOHYD MACRO CAPS Inactive FLAGYL 500 MG TAB 1 tablet by mouth two times daily FLAGYL 500 MG TAB 400888 METRONIDAZOLE Inactive FLAGYL 500 MG TAB 1 tablet by mouth two times daily FLAGYL 500 MG TAB 837328 METRONIDAZOLE Inactive AMOXICILLIN 875 MG TABS 1 tab by mouth twice daily AMOXICILLIN 875 MG TABS 729884 AMOXICILLIN Inactive ZITHROMAX Z-MARTI 250 MG TABS 2 today, then 1 daily for 4 days ZITHROMAX Z-MARTI 250 MG TABS 3969998 AZITHROMYCIN Inactive BACTRIM DS 800-160 MG TAB 1 tab by mouth twice daily BACTRIM DS 800-160 MG TAB 239938 TRIMETHOPRIM-SULFAMETHOXAZOLE Inactive AUGMENTIN 500-125 MG TAB Take 1 capsule by mouth three times a day X 10 days AUGMENTIN 500-125 MG TAB 778000 AMOXICILLIN-POT CLAVULANATE Inactive MACROBID 100 MG ORAL CAPS Take one by mouth daily MACROBID 100 MG ORAL CAPS 3917640 NITROFURANTOIN MONOHYD MACRO Inactive Immunizations Vaccine Administration Date Value Standard Description Seasonal influenza vaccine, injectable, containing preservative, for > 3 years old (Afluria, FluLaval, Fluzone, Fluvirin, Fluarix, Agriflu(>=18 yo)) Fluzone (>3 yrs.) [[id number]] Influenza, seasonal, injectable Vital Signs Date Name [...] Range Description Lab Report: C-REACTIVE PROTEIN, HIV-1/2 Agn/[place]/31338, Drug Abuse Pnl 10 ... - Chemistry rapid plasma reagin antibody titer NON-REACTIVE NON-REACTIVE Lab Report: C-REACTIVE PROTEIN, HIV-1/2 Agn/[place]/18905, Drug Abuse Pnl 10 ... - Lab chlamydia DNA probe NOT DETECTED NOT DETECTED Lab Report: C-REACTIVE PROTEIN, HIV-1/2 Agn/[place]/52974, Drug Abuse Pnl 10 ... - Microbiology Neisseria gonorrhoeae DNA probe NOT DETECTED NOT DETECTED Lab Report: CBC W/DIFF, Comp. Metabolic Panel, Free Thyroxine (L), Thyro ... - Chemistry sodium, serum 138 mmol/L 748-718 9920/09/12 carbon dioxide, venous blood 29.9 mmol/L 21.0-32.0 [...] 5.0-8.5 Encounters Code Encounter Date Provider Facility CPT-91404 Level 4 Est. Patient 22:21:42 CDT [facility] CPT-17463 Level 4 Est. Patient 21:18:20 CDT Dorothy [facility] CPT-58557 Level 3 Est. Patient 10:06:58 CDT Dorothy [facility] CPT-15315 Level 3 Est. Patient 09:36:26 CDT Dorothy [facility] CPT-46268 Level 3 Est. Patient 16:55:26 CDT Cayetano Skinner MD [facility] CPT-14363 Level 2 Est. Patient 11:28:42 CDT Kimberly Brown MD [facility] CPT-43082 Level 3 Est. Patient 15:04:35 CDT Cayetano Skinner MD [facility] CPT-29796 Level 3 Est. 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 Patient 09:56:19 CDT [facility] CPT-39417 Level 3 Est. Patient 12:31:18 RECORDING STUDIO SETUP WORKER Jensen Santiago MD [facility] CPT-48971 Level 3 Est. Patient 10:35:02 RECORDING STUDIO SETUP WORKER Cayetano Skinner MD [facility] CPT-54404 Level 3 Est. Patient 12:50:08 RECORDING STUDIO SETUP WORKER Cayetano Skinner MD [facility] Procedures Code Procedure Name Date Entry Date Standard Description CPT-02230 Venipuncture Draw Fee 10:10:37 CDT CPT-82034 [facility] 10:06:58 CDT CPT-36021 Bladder Scan 19:49:06 RECORDING STUDIO SETUP WORKER CPT-36798 Spec Collection and Handling Fee 11:57:40 CDT CPT-J1020 Depo Medrol 60 mg (Methyl Prednisolone Acetate) 12:03:49 CDT CPT-68122 Abx/Therapy Injection 12:03:48 CDT CPT-J1020 Depo Medrol 60 mg (Methyl Prednisolone Acetate) 09:56:19 CDT CPT-50020 Spec Collection and Handling Fee 12:10:42 CDT CPT-PV Prev. Care Visit 12:10:42 CDT CPT-09157 Administration single or combination vaccine inc oral 16:45:52 RECORDING STUDIO SETUP WORKER CPT-60068 Influenza split virus > age 3 16:45:52 RECORDING STUDIO SETUP WORKER CPT-41436 Spec Collection and Handling Fee 10:35:02 RECORDING STUDIO SETUP WORKER
--- OUTSIDE RECORDS SUMMARY | 2019-04-22 10:43 | XMS REPORT | Clinical Summary ---
Author Author Admin, [place] Organization [employer] Address Unknown Phone Unavailable Allergies, Adverse Reactions, Alerts Allergy Name Reaction Description Start Date Severity Status Provider No Known Allergies Joanne BORDEN Conditions or Problems Problem Name Problem [...] Skinner MD Depressive disorder, not elsewhere classified DEPRESSION ICD-311 Inactive Cayetano Skinner MD FH COLON CANCER [...] Pre-employment exam ICD-V70.5 Inactive Cayetano Skinner MD CERVICAL CANCER ICD-V10.41 Inactive Cayetano Skinner MD Medication List Medication Instructions Start Date Stop Date Generic Name NDC Status Provider Patient Instruction VENLAFAXINE HCL 75 MG ORAL TABS 1 po BID VENLAFAXINE HCL 82713369161 Active Cayetano Skinner MD Active SERTRALINE HCL 100 MG ORAL TABS 2 po qd SERTRALINE HCL 07769145994 No Longer Active Cayetano Skinner MD Active MACROBID CAPS 1 cap po qd. NITROFURANTOIN MONOHYD MACRO CAPS 96165394041 No Longer Active Kimberly Brown MD Active SUBOXONE 8-2 MG SL FILM 1 1/2 STRIPS QD BUPRENORPHINE HCL-NALOXONE HCL 66708105656 Active Cayetano Skinner MD Active CIPRO 500 MG TAB 1 tablet by mouth twice daily CIPROFLOXACIN HCL 84047787527 No Longer Active Cayetano Skinner MD Active MACROBID 100 MG ORAL CAPS Take one by mouth daily NITROFURANTOIN MONOHYD MACRO 34830434874 No Longer Active Kimberly Brown MD Active SUBOXONE 8-2 MG SUBL 2 po qd BUPRENORPHINE HCL-NALOXONE HCL 59333178788 No Longer Active Kimberly Brown MD Active HYDROCORTISONE 2.5 % EXT CREA Apply three times a day to affected area HYDROCORTISONE 31424597367 No Longer Active Kimberly Brown MD Active AUGMENTIN 500-125 MG TAB Take 1 capsule by mouth three times a day X 10 days AMOXICILLIN-POT CLAVULANATE 24902508558 No Longer Active Connie Reyes APRN Active BACTRIM DS 800-160 MG TAB 1 tab by mouth twice daily TRIMETHOPRIM-SULFAMETHOXAZOLE 59884730912 No Longer Active Cayetano Skinner MD Active ZITHROMAX Z-MARTI 250 MG TABS 2 today, then 1 daily for 4 days AZITHROMYCIN 82276387322 No Longer Active Jensen Santiago MD Active CETIRIZINE HCL 10 MG TABS ONE DAILY CETIRIZINE HCL 06764683373 No Longer Active Jensen Santiago MD Active KLONOPIN 1 MG TAB 1/2 tab bid CLONAZEPAM 24312073589 No Longer Active Jensen Santiago MD Active ZOLPIDEM TARTRATE 10 MG TABS 1 q hs as needed for sleep ZOLPIDEM TARTRATE 44652703039 No Longer Active Jensen Santiago MD Active CELEXA 40 MG TABS Take one by mouth daily CITALOPRAM HYDROBROMIDE 53436677500 No Longer Active Jensen Santiago MD Active AMOXICILLIN 875 MG TABS 1 tab by mouth twice daily AMOXICILLIN 39354796453 No Longer Active Cayetano Skinner MD Active FLAGYL 500 MG TAB 1 tablet by mouth two times daily METRONIDAZOLE 52310435494 No Longer Active Cayetano Skinner MD Active FLAGYL 500 MG TAB 1 tablet by mouth two times daily METRONIDAZOLE 15857847167 No Longer Active Cayetano Skinner MD Active BUSPIRONE HCL 15 MG TABS 1/2 PO BID BUSPIRONE HCL 81710588380 No Longer Active Cayetano Skinner MD Active BUSPIRONE HCL 15 MG TABS 1/2 PO BID BUSPIRONE HCL 15 MG TABS 349547 BUSPIRONE HCL Inactive CELEXA 40 MG TABS Take one by mouth daily CELEXA 40 MG TABS 797187 CITALOPRAM HYDROBROMIDE Inactive ZOLPIDEM TARTRATE 10 MG TABS 1 q hs as needed for sleep ZOLPIDEM TARTRATE 10 MG TABS 085290 ZOLPIDEM TARTRATE Inactive KLONOPIN 1 MG TAB 1/2 tab bid KLONOPIN 1 MG TAB 661558 CLONAZEPAM Inactive CETIRIZINE HCL 10 MG TABS ONE DAILY CETIRIZINE HCL 10 MG TABS 8965456 CETIRIZINE HCL Inactive HYDROCORTISONE 2.5 % EXT CREA Apply three times a day to affected area HYDROCORTISONE 2.5 % EXT CREA 486199 HYDROCORTISONE Inactive SUBOXONE 8-2 MG SUBL 2 po qd SUBOXONE 8-2 MG SUBL BUPRENORPHINE HCL-NALOXONE HCL Inactive CIPRO 500 MG TAB 1 tablet by mouth twice daily CIPRO 500 MG TAB 714700 CIPROFLOXACIN HCL Inactive MACROBID CAPS 1 cap po qd. MACROBID CAPS NITROFURANTOIN MONOHYD MACRO CAPS Inactive FLAGYL 500 MG TAB 1 tablet by mouth two times daily FLAGYL 500 MG TAB 329783 METRONIDAZOLE Inactive FLAGYL 500 MG TAB 1 tablet by mouth two times daily FLAGYL 500 MG TAB 375294 METRONIDAZOLE Inactive AMOXICILLIN 875 MG TABS 1 tab by mouth twice daily AMOXICILLIN 875 MG TABS 718075 AMOXICILLIN Inactive ZITHROMAX Z-MARTI 250 MG TABS 2 today, then 1 daily for 4 days ZITHROMAX Z-MARTI 250 MG TABS 7539470 AZITHROMYCIN Inactive BACTRIM DS 800-160 MG TAB 1 tab by mouth twice daily BACTRIM DS 800-160 MG TAB 840855 TRIMETHOPRIM-SULFAMETHOXAZOLE Inactive AUGMENTIN 500-125 MG TAB Take 1 capsule by mouth three times a day X 10 days AUGMENTIN 500-125 MG TAB 837202 AMOXICILLIN-POT CLAVULANATE Inactive MACROBID 100 MG ORAL CAPS Take one by mouth daily MACROBID 100 MG ORAL CAPS 9574720 NITROFURANTOIN MONOHYD MACRO Inactive Immunizations Vaccine Administration Date Value Standard Description Seasonal influenza vaccine, injectable, containing preservative, for > 3 years old (Afluria, FluLaval, Fluzone, Fluvirin, Fluarix, Agriflu(>=18 yo)) Fluzone (>3 yrs.) [[id number]] Influenza, seasonal, injectable Vital Signs Date Name [...] Measured Encounters Code Encounter Date Provider Facility CPT-87582 Level 3 Est. Patient 16:55:26 CDT Cayetano Skinner MD [facility] CPT-84062 Level 2 Est. Patient 11:28:42 CDT Kimberly Brown MD [facility] CPT-45585 Level 3 Est. Patient 15:04:35 CDT Cayetano Skinner MD [facility] CPT-20671 Level 3 Est. Patient 15:07:05 PERSONNEL COUNSELOR Cayetano Skinner MD [facility] CPT-43685 Level 3 Est. Patient 09:56:19 CDT Connie Reyes APRN [facility] CPT-46432 Level 3 Est. Patient 12:31:18 PERSONNEL COUNSELOR Jensen Santiago MD [facility] CPT-34297 Level 3 Est. Patient 10:35:02 PERSONNEL COUNSELOR Cayetano Skinner MD [facility] CPT-83180 Level 3 Est. Patient 12:50:08 PERSONNEL COUNSELOR Cayetano Skinner MD [facility] Procedures Code Procedure Name Date Entry Date Standard Description CPT-08820 Bladder Scan 19:49:06 PERSONNEL COUNSELOR CPT-95650 Spec Collection and Handling Fee 11:57:40 CDT CPT-J1020 Depo Medrol 60 mg (Methyl Prednisolone Acetate) 12:03:49 CDT CPT-40957 Abx/Therapy Injection 12:03:48 CDT CPT-J1020 Depo Medrol 60 mg (Methyl Prednisolone Acetate) 09:56:19 CDT CPT-06755 Spec Collection and Handling Fee 12:10:42 CDT CPT-PV Prev. Care Visit 12:10:42 CDT CPT-92762 Administration single or combination vaccine inc oral 16:45:52 PERSONNEL COUNSELOR CPT-13570 Influenza split virus > age 3 16:45:52 PERSONNEL COUNSELOR CPT-48121 Spec Collection and Handling Fee 10:35:02 PERSONNEL COUNSELOR
--- OUTSIDE RECORDS SUMMARY | 2019-04-22 10:43 | XMS REPORT | Clinical Summary ---
Author Author Admin, [place] Organization [facility] Address Unknown Phone Unavailable Allergies, Adverse Reactions, Alerts Allergy Name Reaction Description Start Date Severity Status Provider No Known Allergies Aicha Elder Conditions or Problems Problem Name Problem Code Onset Date Status Entry Date Provider Comment Standard Description Annotate DEPRESSION 311 Active Cayetano Skinner MD Depressive disorder, [...] Skinner MD Leukorrhea, not specified as infective ROUTINE GYNECOLOGICAL EXAMINATION V72.31 Active Cayetano Skinner MD Routine gynecological examination Rule out DRUG ABUSE Resolved Cayetano Skinner MD Other, mixed, or unspecified drug abuse, unspecified use PHARYNGITIS 462 Resolved Cayetano Skinner MD Acute pharyngitis Dysuria 788.1 Active Cayetano Skinner MD Dysuria Sinusitis, acute 461.9 Active Connie Reyes APRN Acute sinusitis, unspecified CERVICAL CANCER ICD-V10.41 Inactive Cayetano Skinner MD FH COLON CANCER ICD-V16.0 Inactive Cayetano Skinner MD INGUINAL LYMPHADENOPATHY, LEFT ICD-785.6 Inactive Cayetano Skinner MD ABNORMAL PAP SMEAR ICD-V13.29 Inactive Cayetano Skinner MD VAGINAL DISCHARGE ICD-623.5 Inactive Cayetano Skinner MD DRUG ABUSE ICD-305.90 Inactive Cayetano Skinner MD PHARYNGITIS ICD-462 Inactive Cayetano Skinner MD Medication List Medication Instructions Start Date Stop Date Generic Name NDC Status Provider Patient Instruction AUGMENTIN 500-125 MG TAB Take 1 capsule by mouth three times a day X 10 days AMOXICILLIN-POT CLAVULANATE 39728981527 No Longer Active Connie Reyes APRN Active BACTRIM DS 800-160 MG TAB 1 tab by mouth twice daily TRIMETHOPRIM-SULFAMETHOXAZOLE 29622570861 No Longer Active Cayetano Skinner MD Active HYDROCORTISONE 2.5 % EXT CREA Apply three times a day to affected area HYDROCORTISONE 90273457933 Active Melinda Yochris H[place] Active ZITHROMAX Z-MARTI 250 MG TABS 2 today, then 1 daily for 4 days AZITHROMYCIN 85838841603 No Longer Active Jensen Santiago MD Active SUBOXONE 8-2 MG SUBL 2 po qd BUPRENORPHINE HCL-NALOXONE HCL 25878783309 Active Jensen Santiago MD Active CETIRIZINE HCL 10 MG TABS ONE DAILY CETIRIZINE HCL 55916296661 No Longer Active Jensen Santiago MD Active KLONOPIN 1 MG TAB 1/2 tab bid CLONAZEPAM 67998129672 No Longer Active Jensen Santiago MD Active ZOLPIDEM TARTRATE 10 MG TABS 1 q hs as needed for sleep ZOLPIDEM TARTRATE 71404388081 No Longer Active Jensen Santiago MD Active CELEXA 40 MG TABS Take one by mouth daily CITALOPRAM HYDROBROMIDE 20877129967 No Longer Active Jensen Santiago MD Active AMOXICILLIN 875 MG TABS 1 tab by mouth twice daily AMOXICILLIN 22932609976 No Longer Active Cayetano Skinner MD Active FLAGYL 500 MG TAB 1 tablet by mouth two times daily METRONIDAZOLE 56797593172 No Longer Active Cayetano Skinner MD Active FLAGYL 500 MG TAB 1 tablet by mouth two times daily METRONIDAZOLE 91522310303 No Longer Active Cayetano Skinner MD Active BUSPIRONE HCL 15 MG TABS 1/2 PO BID BUSPIRONE HCL 17636500819 No Longer Active Cayetano Skinner MD Active BUSPIRONE HCL 15 MG TABS 1/2 PO BID BUSPIRONE HCL 15 MG TABS 614282 BUSPIRONE HCL Inactive CELEXA 40 MG TABS Take one by mouth daily CELEXA 40 MG TABS 160104 CITALOPRAM HYDROBROMIDE Inactive ZOLPIDEM TARTRATE 10 MG TABS 1 q hs as needed for sleep ZOLPIDEM TARTRATE 10 MG TABS 410498 ZOLPIDEM TARTRATE Inactive KLONOPIN 1 MG TAB 1/2 tab bid KLONOPIN 1 MG TAB 670776 CLONAZEPAM Inactive CETIRIZINE HCL 10 MG TABS ONE DAILY CETIRIZINE HCL 10 MG TABS 3815662 CETIRIZINE HCL Inactive FLAGYL 500 MG TAB 1 tablet by mouth two times daily FLAGYL 500 MG TAB 794273 METRONIDAZOLE Inactive FLAGYL 500 MG TAB 1 tablet by mouth two times daily FLAGYL 500 MG TAB 207835 METRONIDAZOLE Inactive AMOXICILLIN 875 MG TABS 1 tab by mouth twice daily AMOXICILLIN 875 MG TABS 317772 AMOXICILLIN Inactive ZITHROMAX Z-MARTI 250 MG TABS 2 today, then 1 daily for 4 days ZITHROMAX Z-MARTI 250 MG TABS 4026611 AZITHROMYCIN Inactive BACTRIM DS 800-160 MG TAB 1 tab by mouth twice daily BACTRIM DS 800-160 MG TAB 331773 TRIMETHOPRIM-SULFAMETHOXAZOLE Inactive AUGMENTIN 500-125 MG TAB Take 1 capsule by mouth three times a day X 10 days AUGMENTIN 500-125 MG TAB 232833 AMOXICILLIN-POT CLAVULANATE Inactive Immunizations Vaccine Administration Date Value Standard Description Seasonal influenza vaccine, injectable, containing preservative, for > 3 years old (Afluria, FluLaval, Fluzone, Fluvirin, Fluarix, Agriflu(>=18 yo)) Fluzone (>3 yrs.) [[id number]] Influenza, seasonal, injectable Vital Signs Date Name Value Unit Range Description blood pressure, diastolic - 8462-4 106 mm[Hg] BP montejo blood pressure, systolic - 8480-6 139 mm[Hg] BP sys pulse rate E&M - 8867-4 83 /min Heart rate temperature E&M 98.6 [degF] Body temperature weight E&M - 3141-9 112.5 [lb_av] Weight Measured Diagnostic Results Date Name Value Unit Range Description Lab Report: UADIP W/MICRO, AUTO - Chemistry protein, total urine random 2+ mg/dL Negative RBC, urine, dipstick 3+ Negative Lab Report: UADIP W/MICRO, AUTO - Urinalysis urobilinogen, urine, semiquantitative (dipstick) 1.0 Normal leukocyte esterase, urine, by dipstick 1+ Negative nitrite, urine, semiquantitative Positive Negative glucose, urine, semiquantitative Negative Negative ketones, urine, by test strip Negative Negative bilirubin, urine Negative Negative urine color [place] Colorless;Lightyellow;Straw;Yellow appearance, urine Cloudy Clear specific gravity, urine 1.025 1.000-1.030 pH, urine, semiquantitative 6.0 5.0-8.5 Encounters Code Encounter Date Provider Facility CPT-53710 Level 3 Est. Patient 09:56:19 CDT Connie Lockecarmen HAMILTON [facility] CPT-43385 Level 3 Est. Patient 12:31:18 [place] MACHINE OPERATOR Jensen Santiago MD [facility] CPT-47440 Level 3 Est. Patient 10:35:02 [employer] MACHINE OPERATOR Cayetano Skinner MD [facility] CPT-82540 Level 3 Est. Patient 12:50:08 [place] MACHINE OPERATOR Cayetano Skinner MD [facility] Procedures Code Procedure Name Date Entry Date Standard Description CPT-J1020 Depo Medrol 60 mg (Methyl Prednisolone Acetate) 12:03:49 CDT CPT-85848 Abx/Therapy Injection 12:03:48 CDT CPT-J1020 Depo Medrol 60 mg (Methyl Prednisolone Acetate) 09:56:19 CDT CPT-01093 Spec Collection and Handling Fee 12:10:42 CDT CPT-PV Prev. Care Visit 12:10:42 CDT CPT-10978 Administration single or combination vaccine inc oral 16:45:52 [place] MACHINE OPERATOR CPT-61145 Influenza split virus > age 3 16:45:52 [place] MACHINE OPERATOR CPT-71714 Spec Collection and Handling Fee 10:35:02 [place] MACHINE OPERATOR
--- OUTSIDE RECORDS SUMMARY | 2019-04-22 10:44 | XMS REPORT | Clinical Summary ---
Author Author Admin, [place] Organization [employer] Address Unknown Phone Unavailable Allergies, Adverse Reactions, [...] disorder, not elsewhere classified Pruritus 698.9 Active Jillina Frazell HULL DRAFTER Unspecified pruritic disorder Urticaria 708.9 Active Jillina Frazell HULL DRAFTER Unspecified urticaria DEPRESSION ICD-311 Inactive Cayetano Skinner MD CERVICAL [...] 1 tab po q am RANITIDINE HCL 40295270745 Active Jillina Frazell HULL DRAFTER Active ZYRTEC ALLERGY 10 MG CAPS 1 po am CETIRIZINE HCL 47747798796 Active Jillina Frazell HULL DRAFTER Active PREDNISONE 20 MG TAB 2 tabs daily for 4 days, 1 tab daily for 4 days, 1/2 tab daily for 4 days PREDNISONE 73553214117 Active Jillina Frazell HULL DRAFTER Active VENLAFAXINE HCL 75 MG ORAL TABS 1.5 po BID VENLAFAXINE HCL 86637722087 Active Cayetano Skinner MD Active TRAZODONE HCL 100 MG ORAL TABS 0.5 to 1 po qHS PRN Insomnia TRAZODONE HCL 36569461537 Active Cayetano Skinner MD Active SERTRALINE HCL 100 MG ORAL TABS 2 po qd SERTRALINE HCL 84618971481 No Longer Active Cayetano Skinner MD Active MACROBID CAPS 1 cap po qd. NITROFURANTOIN MONOHYD MACRO CAPS 94238492737 No Longer Active Kimberly Brown MD Active SUBOXONE 8-2 MG SL FILM 1 1/2 STRIPS QD BUPRENORPHINE HCL-NALOXONE HCL 25566284382 Active Cayetano Skinner MD Active CIPRO 500 MG TAB 1 tablet by mouth twice daily CIPROFLOXACIN HCL 82608192565 No Longer Active Cayetano Skinner MD Active MACROBID 100 MG ORAL CAPS Take one by mouth daily NITROFURANTOIN MONOHYD MACRO 21793099839 No Longer Active Kimberly Brown MD Active SUBOXONE 8-2 MG SUBL 2 po qd BUPRENORPHINE HCL-NALOXONE HCL 35707451761 No Longer Active Kimberly Brown MD Active HYDROCORTISONE 2.5 % EXT CREA Apply three times a day to affected area HYDROCORTISONE 51087364052 No Longer Active Kimberly Brown MD Active AUGMENTIN 500-125 MG TAB Take 1 capsule by mouth three times a day X 10 days AMOXICILLIN-POT CLAVULANATE 54306943408 No Longer Active Connie Reyes APRN Active BACTRIM DS 800-160 MG TAB 1 tab by mouth twice daily TRIMETHOPRIM-SULFAMETHOXAZOLE 33062860743 No Longer Active Cayetano Skinner MD Active ZITHROMAX Z-MARTI 250 MG TABS 2 today, then 1 daily for 4 days AZITHROMYCIN 65471360810 No Longer Active Jensen Santiago MD Active CETIRIZINE HCL 10 MG TABS ONE DAILY CETIRIZINE HCL 26237242268 No Longer Active Jensen Santiago MD Active KLONOPIN 1 MG TAB 1/2 tab bid CLONAZEPAM 96792001433 No Longer Active Jensen Santiago MD Active ZOLPIDEM TARTRATE 10 MG TABS 1 q hs as needed for sleep ZOLPIDEM TARTRATE 01660537351 No Longer Active Jensen Santiago MD Active CELEXA 40 MG TABS Take one by mouth daily CITALOPRAM HYDROBROMIDE 37453140180 No Longer Active Jensen Santiago MD Active AMOXICILLIN 875 MG TABS 1 tab by mouth twice daily AMOXICILLIN 67517763041 No Longer Active Cayetano Skinner MD Active FLAGYL 500 MG TAB 1 tablet by mouth two times daily METRONIDAZOLE 56864110024 No Longer Active Cayetano Skinner MD Active FLAGYL 500 MG TAB 1 tablet by mouth two times daily METRONIDAZOLE 70045242993 No Longer Active Cayetano Skinner MD Active BUSPIRONE HCL 15 MG TABS 1/2 PO BID BUSPIRONE HCL 20062747412 No Longer Active Cayetano Skinner MD Active BUSPIRONE HCL 15 MG TABS 1/2 PO BID BUSPIRONE HCL 15 MG TABS 196629 BUSPIRONE HCL Inactive CELEXA 40 MG TABS Take one by mouth daily CELEXA 40 MG TABS 840919 CITALOPRAM HYDROBROMIDE Inactive ZOLPIDEM TARTRATE 10 MG TABS 1 q hs as needed for sleep ZOLPIDEM TARTRATE 10 MG TABS 721716 ZOLPIDEM TARTRATE Inactive KLONOPIN 1 MG TAB 1/2 tab bid KLONOPIN 1 MG TAB 664360 CLONAZEPAM Inactive CETIRIZINE HCL 10 MG TABS ONE DAILY CETIRIZINE HCL 10 MG TABS 9414413 CETIRIZINE HCL Inactive HYDROCORTISONE 2.5 % EXT CREA Apply three times a day to affected area HYDROCORTISONE 2.5 % EXT CREA 180184 HYDROCORTISONE Inactive SUBOXONE 8-2 MG SUBL 2 po qd SUBOXONE 8-2 MG SUBL BUPRENORPHINE HCL-NALOXONE HCL Inactive CIPRO 500 MG TAB 1 tablet by mouth twice daily CIPRO 500 MG TAB 773850 CIPROFLOXACIN HCL Inactive MACROBID CAPS 1 cap po qd. MACROBID CAPS NITROFURANTOIN MONOHYD MACRO CAPS Inactive FLAGYL 500 MG TAB 1 tablet by mouth two times daily FLAGYL 500 MG TAB 502070 METRONIDAZOLE Inactive FLAGYL 500 MG TAB 1 tablet by mouth two times daily FLAGYL 500 MG TAB 454503 METRONIDAZOLE Inactive AMOXICILLIN 875 MG TABS 1 tab by mouth twice daily AMOXICILLIN 875 MG TABS 809048 AMOXICILLIN Inactive ZITHROMAX Z-MARTI 250 MG TABS 2 today, then 1 daily for 4 days ZITHROMAX Z-MARTI 250 MG TABS 1705298 AZITHROMYCIN Inactive BACTRIM DS 800-160 MG TAB 1 tab by mouth twice daily BACTRIM DS 800-160 MG TAB 326838 TRIMETHOPRIM-SULFAMETHOXAZOLE Inactive AUGMENTIN 500-125 MG TAB Take 1 capsule by mouth three times a day X 10 days AUGMENTIN 500-125 MG TAB 512726 AMOXICILLIN-POT CLAVULANATE Inactive MACROBID 100 MG ORAL CAPS Take one by mouth daily MACROBID 100 MG ORAL CAPS 1508040 NITROFURANTOIN MONOHYD MACRO Inactive Immunizations Vaccine Administration Date Value Standard Description Seasonal influenza vaccine, injectable, containing preservative, for > 3 years old (Afluria, FluLaval, Fluzone, Fluvirin, Fluarix, Agriflu(>=18 yo)) Fluzone (>3 yrs.) [[id number]] Influenza, seasonal, injectable Vital Signs Date Name [...] ... - Chemistry sodium, serum 138 mmol/L 061-108 8807/09/12 carbon dioxide, venous blood 29.9 mmol/L 21.0-32.0 [...] 11.6-14.8 platelet count 329 10^3/MM^3 10*3/mm3 142-424 Encounters Code Encounter Date Provider Facility CPT-95654 Level 3 Est. Patient 09:36:26 CDT Dorothy Ayala [facility] [place] CPT-96475 Level 3 Est. Patient 16:55:26 CDT Cayetano Skinner MD [facility] CPT-62934 Level 2 Est. Patient 11:28:42 CDT Kimberly Brown MD [facility] CPT-91348 Level 3 Est. Patient 15:04:35 CDT Cayetano Skinner MD [facility] CPT-26034 Level 3 Est. Patient 15:07:05 ONLINE BANKING SPECIALIST Cayetano Skinner MD [facility] CPT-23680 Level 3 Est. Patient 09:56:19 CDT Connie Reyes [facility] [place] CPT-80329 Level 3 Est. Patient 12:31:18 ONLINE BANKING SPECIALIST Jensen Santiago MD [facility] CPT-69465 Level 3 Est. Patient 10:35:02 ONLINE BANKING SPECIALIST Cayetano Skinner MD [facility] CPT-54858 Level 3 Est. Patient 12:50:08 ONLINE BANKING SPECIALIST Cayetano Skinner MD [facility] Procedures Code Procedure Name Date Entry Date Standard Description CPT-50514 Bladder Scan 19:49:06 ONLINE BANKING SPECIALIST CPT-47409 Spec Collection and Handling Fee 11:57:40 CDT CPT-J1020 Depo Medrol 60 mg (Methyl Prednisolone Acetate) 12:03:49 CDT CPT-91426 Abx/Therapy Injection 12:03:48 CDT CPT-J1020 Depo Medrol 60 mg (Methyl Prednisolone Acetate) 09:56:19 CDT CPT-99934 Spec Collection and Handling Fee 12:10:42 CDT CPT-PV Prev. Care Visit 12:10:42 CDT CPT-82913 Administration single or combination vaccine inc oral 16:45:52 ONLINE BANKING SPECIALIST CPT-50562 Influenza split virus > age 3 16:45:52 ONLINE BANKING SPECIALIST CPT-62207 Spec Collection and Handling Fee 10:35:02 ONLINE BANKING SPECIALIST
--- OUTSIDE RECORDS SUMMARY | 2019-04-22 10:44 | XMS REPORT | Clinical Summary ---
Author Author Admin, [employer] Organization [facility] Address Unknown Phone Unavailable Allergies, Adverse Reactions, Alerts Allergy Name Reaction Description Start Date Severity Status Provider No Known Allergies Denise Beltre LRT Conditions or Problems Problem Name Problem Code [...] classified DEPRESSION ICD-311 Inactive Cayetano Skinner MD CERVICAL [...] Generic Name NDC Status Provider Patient Instruction ZOLOFT 50 MG ORAL TABS 0.5 po qd x 4 days, then 1 po qd SERTRALINE HCL 01872851039 Active Cayetano Skinner MD Active SUBOXONE 8-2 MG SL FILM 1 1/2 STRIPS QD BUPRENORPHINE HCL-NALOXONE HCL 00756001254 Active Cayetano Skinner MD Active CIPRO 500 MG TAB 1 tablet by mouth twice daily CIPROFLOXACIN HCL 77007234990 No Longer Active Cayetano Skinner MD Active MACROBID 100 MG ORAL CAPS Take one by mouth daily NITROFURANTOIN MONOHYD MACRO 51642291963 No Longer Active Kimberly Brown MD Active SUBOXONE 8-2 MG SUBL 2 po qd BUPRENORPHINE HCL-NALOXONE HCL 18567288058 No Longer Active Kimberly Brown MD Active HYDROCORTISONE 2.5 % EXT CREA Apply three times a day to affected area HYDROCORTISONE 24298867715 No Longer Active Kimberly Brown MD Active AUGMENTIN 500-125 MG TAB Take 1 capsule by mouth three times a day X 10 days AMOXICILLIN-POT CLAVULANATE 83722311031 No Longer Active Connie Reyes APRN Active BACTRIM DS 800-160 MG TAB 1 tab by mouth twice daily TRIMETHOPRIM-SULFAMETHOXAZOLE 08252571125 No Longer Active Cayetano Skinner MD Active ZITHROMAX Z-MARTI 250 MG TABS 2 today, then 1 daily for 4 days AZITHROMYCIN 56995671012 No Longer Active Jensen Santiago MD Active CETIRIZINE HCL 10 MG TABS ONE DAILY CETIRIZINE HCL 59700313404 No Longer Active Jensen Santiago MD Active KLONOPIN 1 MG TAB 1/2 tab bid CLONAZEPAM 67309304310 No Longer Active Jensen Santiago MD Active ZOLPIDEM TARTRATE 10 MG TABS 1 q hs as needed for sleep ZOLPIDEM TARTRATE 91207909258 No Longer Active Jensen Santiago MD Active CELEXA 40 MG TABS Take one by mouth daily CITALOPRAM HYDROBROMIDE 48896862830 No Longer Active Jensen Santiago MD Active AMOXICILLIN 875 MG TABS 1 tab by mouth twice daily AMOXICILLIN 44950469400 No Longer Active Cayetano Skinner MD Active FLAGYL 500 MG TAB 1 tablet by mouth two times daily METRONIDAZOLE 18125220414 No Longer Active Cayetano Skinner MD Active FLAGYL 500 MG TAB 1 tablet by mouth two times daily METRONIDAZOLE 42602948490 No Longer Active Cayetano Skinner MD Active BUSPIRONE HCL 15 MG TABS 1/2 PO BID BUSPIRONE HCL 49303336099 No Longer Active Cayetano Skinner MD Active BUSPIRONE HCL 15 MG TABS 1/2 PO BID BUSPIRONE HCL 15 MG TABS 940505 BUSPIRONE HCL Inactive CELEXA 40 MG TABS Take one by mouth daily CELEXA 40 MG TABS 330338 CITALOPRAM HYDROBROMIDE Inactive ZOLPIDEM TARTRATE 10 MG TABS 1 q hs as needed for sleep ZOLPIDEM TARTRATE 10 MG TABS 376487 ZOLPIDEM TARTRATE Inactive KLONOPIN 1 MG TAB 1/2 tab bid KLONOPIN 1 MG TAB 588383 CLONAZEPAM Inactive CETIRIZINE HCL 10 MG TABS ONE DAILY CETIRIZINE HCL 10 MG TABS 4752137 CETIRIZINE HCL Inactive HYDROCORTISONE 2.5 % EXT CREA Apply three times a day to affected area HYDROCORTISONE 2.5 % EXT CREA 819133 HYDROCORTISONE Inactive SUBOXONE 8-2 MG SUBL 2 po qd SUBOXONE 8-2 MG SUBL BUPRENORPHINE HCL-NALOXONE HCL Inactive CIPRO 500 MG TAB 1 tablet by mouth twice daily CIPRO 500 MG TAB 718964 CIPROFLOXACIN HCL Inactive FLAGYL 500 MG TAB 1 tablet by mouth two times daily FLAGYL 500 MG TAB 461340 METRONIDAZOLE Inactive FLAGYL 500 MG TAB 1 tablet by mouth two times daily FLAGYL 500 MG TAB 341356 METRONIDAZOLE Inactive AMOXICILLIN 875 MG TABS 1 tab by mouth twice daily AMOXICILLIN 875 MG TABS 981315 AMOXICILLIN Inactive ZITHROMAX Z-MARTI 250 MG TABS 2 today, then 1 daily for 4 days ZITHROMAX Z-MARTI 250 MG TABS 3179783 AZITHROMYCIN Inactive BACTRIM DS 800-160 MG TAB 1 tab by mouth twice daily BACTRIM DS 800-160 MG TAB 144476 TRIMETHOPRIM-SULFAMETHOXAZOLE Inactive AUGMENTIN 500-125 MG TAB Take 1 capsule by mouth three times a day X 10 days AUGMENTIN 500-125 MG TAB 747674 AMOXICILLIN-POT CLAVULANATE Inactive MACROBID 100 MG ORAL CAPS Take one by mouth daily MACROBID 100 MG ORAL CAPS 6478965 NITROFURANTOIN MONOHYD MACRO Inactive Immunizations Vaccine Administration Date Value Standard Description Seasonal influenza vaccine, injectable, containing preservative, for > 3 years old (Afluria, FluLaval, Fluzone, Fluvirin, Fluarix, Agriflu(>=18 yo)) Fluzone (>3 yrs.) [[id number]] Influenza, seasonal, injectable Vital Signs Date Name Value Unit Range Description blood pressure, diastolic - 8462-4 78 mm[Hg] BP montejo blood pressure, systolic - 8480-6 134 mm[Hg] BP sys pulse rate E&M - 8867-4 92 /min Heart rate temperature E&M 98 [degF] Body temperature weight E&M - 3141-9 115.1 [lb_av] Weight Measured blood pressure, diastolic - 8462-4 90 mm[Hg] BP montejo blood pressure, systolic - 8480-6 123 mm[Hg] BP sys pulse rate E&M - 8867-4 90 /min Heart rate temperature E&M 98.4 [degF] Body temperature weight E&M - 3141-9 115 [lb_av] Weight Measured blood pressure, diastolic - 8462-4 106 mm[Hg] BP montejo blood pressure, systolic - 8480-6 139 mm[Hg] BP sys pulse rate E&M - 8867-4 83 /min Heart rate temperature E&M 98.6 [degF] Body temperature weight E&M - 3141-9 112.5 [lb_av] Weight Measured Encounters Code Encounter Date Provider Facility CPT-92586 Level 3 Est. Patient 15:07:05 REGISTERED NURSE CARDIOVASCULAR ICU Cayetano Skinner MD [facility] CPT-36143 Level 3 Est. Patient 09:56:19 CDT Connie Lockecarmen HAMILTON [facility] CPT-02508 Level 3 Est. Patient 12:31:18 REGISTERED NURSE CARDIOVASCULAR ICU Jensen Santiago MD [facility] CPT-26718 Level 3 Est. Patient 10:35:02 REGISTERED NURSE CARDIOVASCULAR ICU Cayetano Skinner MD [facility] CPT-01618 Level 3 Est. Patient 12:50:08 REGISTERED NURSE CARDIOVASCULAR ICU Cayetano Skinner MD [facility] Procedures Code Procedure Name Date Entry Date Standard Description CPT-22468 Bladder Scan 19:49:06 REGISTERED NURSE CARDIOVASCULAR ICU CPT-02897 Spec Collection and Handling Fee 11:57:40 CDT CPT-J1020 Depo Medrol 60 mg (Methyl Prednisolone Acetate) 12:03:49 CDT CPT-33508 Abx/Therapy Injection 12:03:48 CDT CPT-J1020 Depo Medrol 60 mg (Methyl Prednisolone Acetate) 09:56:19 CDT CPT-44977 Spec Collection and Handling Fee 12:10:42 CDT CPT-PV Prev. Care Visit 12:10:42 CDT CPT-14720 Administration single or combination vaccine inc oral 16:45:52 REGISTERED NURSE CARDIOVASCULAR ICU CPT-45916 Influenza split virus > age 3 16:45:52 REGISTERED NURSE CARDIOVASCULAR ICU CPT-11639 Spec Collection and Handling Fee 10:35:02 REGISTERED NURSE CARDIOVASCULAR ICU
--- OUTSIDE RECORDS SUMMARY | 2019-04-22 10:45 | XMS REPORT | Clinical Summary ---
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 Unspecified pruritic disorder Urticaria 708.9 Active Dorothy [...] 1 tab po q am RANITIDINE HCL 34093980258 Active Jillina Frazell CERTIFIED ENERGY MANAGER Active ZYRTEC ALLERGY 10 MG CAPS 1 po am CETIRIZINE HCL 01617712366 Active Jillina Frazell CERTIFIED ENERGY MANAGER Active PREDNISONE 20 MG TAB 2 tabs daily for 4 days, 1 tab daily for 4 days, /2 tab daily for 4 days PREDNISONE 15209027207 Active Dorothy Scotttamara HAMILTON Active VENLAFAXINE HCL 75 MG ORAL TABS 1.5 po BID VENLAFAXINE HCL 04273545467 Active Cayetano Skinner MD Active TRAZODONE HCL 100 MG ORAL TABS 0.5 to 1 po qHS PRN Insomnia TRAZODONE HCL 91289257016 Active Cayetano Skinner MD Active SERTRALINE HCL 100 MG ORAL TABS 2 po qd SERTRALINE HCL 33370559923 No Longer Active Cayetano Skinner MD Active MACROBID CAPS 1 cap po qd. NITROFURANTOIN MONOHYD MACRO CAPS 84491980166 No Longer Active Kimberly Brown MD Active SUBOXONE 8-2 MG SL FILM 1 1/2 STRIPS QD BUPRENORPHINE HCL-NALOXONE HCL 71573562172 Active Cayetano Skinner MD Active CIPRO 500 MG TAB 1 tablet by mouth twice daily CIPROFLOXACIN HCL 69607789008 No Longer Active Cayetano Skinner MD Active MACROBID 100 MG ORAL CAPS Take one by mouth daily NITROFURANTOIN MONOHYD MACRO 77125954082 No Longer Active Kimberyl Brown MD Active SUBOXONE 8-2 MG SUBL 2 po qd BUPRENORPHINE HCL-NALOXONE HCL 35205020785 No Longer Active Kimberly Brown MD Active HYDROCORTISONE 2.5 % EXT CREA Apply three times a day to affected area HYDROCORTISONE 23008110889 No Longer Active Kimberly Brown MD Active AUGMENTIN 500-125 MG TAB Take 1 capsule by mouth three times a day X 10 days AMOXICILLIN-POT CLAVULANATE 47175176766 No Longer Active Connie Reyes APRN Active BACTRIM DS 800-160 MG TAB 1 tab by mouth twice daily TRIMETHOPRIM-SULFAMETHOXAZOLE 65435307908 No Longer Active Cayetano Skinner MD Active ZITHROMAX Z-MARTI 250 MG TABS 2 today, then 1 daily for 4 days AZITHROMYCIN 47389996984 No Longer Active Jensen Santiago MD Active CETIRIZINE HCL 10 MG TABS ONE DAILY CETIRIZINE HCL 85879815586 No Longer Active Jensen Santiago MD Active KLONOPIN 1 MG TAB 1/2 tab bid CLONAZEPAM 06727458057 No Longer Active Jensen Santiago MD Active ZOLPIDEM TARTRATE 10 MG TABS 1 q hs as needed for sleep ZOLPIDEM TARTRATE 24857530949 No Longer Active Jensen Santiago MD Active CELEXA 40 MG TABS Take one by mouth daily CITALOPRAM HYDROBROMIDE 47051397779 No Longer Active Jensen Santiago MD Active AMOXICILLIN 875 MG TABS 1 tab by mouth twice daily AMOXICILLIN 06258156348 No Longer Active Cayetano Skinner MD Active FLAGYL 500 MG TAB 1 tablet by mouth two times daily METRONIDAZOLE 15975280965 No Longer Active Cayetano Skinner MD Active FLAGYL 500 MG TAB 1 tablet by mouth two times daily METRONIDAZOLE 47647297629 No Longer Active Cayetano Skinner MD Active BUSPIRONE HCL 15 MG TABS 1/2 PO BID BUSPIRONE HCL 70985527427 No Longer Active Cayetano Skinner MD Active BUSPIRONE HCL 15 MG TABS 1/2 PO BID BUSPIRONE HCL 15 MG TABS 119626 BUSPIRONE HCL Inactive CELEXA 40 MG TABS Take one by mouth daily CELEXA 40 MG TABS 413888 CITALOPRAM HYDROBROMIDE Inactive ZOLPIDEM TARTRATE 10 MG TABS 1 q hs as needed for sleep ZOLPIDEM TARTRATE 10 MG TABS 843437 ZOLPIDEM TARTRATE Inactive KLONOPIN 1 MG TAB 1/2 tab bid KLONOPIN 1 MG TAB 348932 CLONAZEPAM Inactive CETIRIZINE HCL 10 MG TABS ONE DAILY CETIRIZINE HCL 10 MG TABS 5050131 CETIRIZINE HCL Inactive HYDROCORTISONE 2.5 % EXT CREA Apply three times a day to affected area HYDROCORTISONE 2.5 % EXT CREA 181956 HYDROCORTISONE Inactive SUBOXONE 8-2 MG SUBL 2 po qd SUBOXONE 8-2 MG SUBL BUPRENORPHINE HCL-NALOXONE HCL Inactive CIPRO 500 MG TAB 1 tablet by mouth twice daily CIPRO 500 MG TAB 117342 CIPROFLOXACIN HCL Inactive MACROBID CAPS 1 cap po qd. MACROBID CAPS NITROFURANTOIN MONOHYD MACRO CAPS Inactive FLAGYL 500 MG TAB 1 tablet by mouth two times daily FLAGYL 500 MG TAB 505282 METRONIDAZOLE Inactive FLAGYL 500 MG TAB 1 tablet by mouth two times daily FLAGYL 500 MG TAB 439157 METRONIDAZOLE Inactive AMOXICILLIN 875 MG TABS 1 tab by mouth twice daily AMOXICILLIN 875 MG TABS 730052 AMOXICILLIN Inactive ZITHROMAX Z-MARTI 250 MG TABS 2 today, then 1 daily for 4 days ZITHROMAX Z-MARTI 250 MG TABS 6802565 AZITHROMYCIN Inactive BACTRIM DS 800-160 MG TAB 1 tab by mouth twice daily BACTRIM DS 800-160 MG TAB 833326 TRIMETHOPRIM-SULFAMETHOXAZOLE Inactive AUGMENTIN 500-125 MG TAB Take 1 capsule by mouth three times a day X 10 days AUGMENTIN 500-125 MG TAB 282296 AMOXICILLIN-POT CLAVULANATE Inactive MACROBID 100 MG ORAL CAPS Take one by mouth daily MACROBID 100 MG ORAL CAPS 0244102 NITROFURANTOIN MONOHYD MACRO Inactive Immunizations Vaccine Administration Date Value Standard Description Seasonal influenza vaccine, injectable, containing preservative, for > 3 years old (Afluria, FluLaval, Fluzone, Fluvirin, Fluarix, Agriflu(>=18 yo)) Fluzone (>3 yrs.) [[id number]] Influenza, seasonal, injectable Vital Signs Date Name [...] Measured blood pressure, diastolic 78 mm[Hg] BP mnotejo blood pressure, systolic 134 mm[Hg] BP sys [...] Range Description Lab Report: C-REACTIVE PROTEIN, HIV-1/2 Agn/[place]/72906, Drug Abuse Pnl 10 ... - Chemistry rapid plasma reagin antibody titer NON-REACTIVE NON-REACTIVE Lab Report: C-REACTIVE PROTEIN, HIV-1/2 Agn/[place]/35136, Drug Abuse Pnl 10 ... - Lab chlamydia DNA probe NOT DETECTED NOT DETECTED Lab Report: C-REACTIVE PROTEIN, HIV-1/2 Agn/[place]/07076, Drug Abuse Pnl 10 ... - Microbiology Neisseria gonorrhoeae DNA probe NOT DETECTED NOT DETECTED Lab Report: CBC W/DIFF, Comp. Metabolic Panel, Free Thyroxine (L), Thyro ... - Chemistry sodium, serum 138 mmol/L 296-174 3965/09/12 carbon dioxide, venous blood 29.9 mmol/L [...] 5.0-8.5 Encounters Code Encounter Date Provider Facility CPT-56542 Level 4 Est. Patient 22:21:42 CDT Dorothy Ayala [facility] [place] CPT-33319 Level 4 Est. Patient 21:18:20 CDT Dorothy Ayala [facility] [place] CPT-76676 Level 3 Est. Patient 10:06:58 CDT Dorothy Dovesegun [facility] [place] CPT-03270 Level 3 Est. Patient 09:36:26 CDT Dorothy Ayala [facility] [place] CPT-42889 Level 3 Est. Patient 16:55:26 CDT Cayetano Skinner MD [facility] CPT-63987 Level 2 Est. Patient 11:28:42 CDT Kimberly Brown MD [facility] CPT-90329 Level 3 Est. Patient 15:04:35 CDT Cayetano Skinner MD [facility] CPT-67443 Level 3 Est. Patient 15:07:[address] [employer] Cayetano Skinner MD [facility] CPT-54323 Level 3 Est. Patient 09:56:19 CDT Connie Reyes [facility] [place] CPT-98172 Level 3 Est. Patient 12:31:[address] [employer] Jensen Santiago MD [facility] CPT-59509 Level 3 Est. Patient 10:35:[address] [employer] Cayetano Skinner MD [facility] CPT-62557 Level 3 Est. Patient 12:50:[address] [employer] Cayetano Skinner MD [facility] Procedures Code Procedure Name Date Entry Date Standard Description CPT-15670 Venipuncture Draw Fee 10:10:37 CDT CPT-26072 [facility] 10:06:58 CDT CPT-64415 Bladder Scan 19:49:[address] [employer] CPT-53577 Spec Collection and Handling Fee 11:57:40 CDT CPT-J1020 Depo Medrol 60 mg (Methyl Prednisolone Acetate) 12:03:49 CDT CPT-10676 Abx/Therapy Injection 12:03:48 CDT CPT-J1020 Depo Medrol 60 mg (Methyl Prednisolone Acetate) 09:56:19 CDT CPT-49319 Spec Collection and Handling Fee 12:10:42 CDT CPT-PV Prev. Care Visit 12:10:42 CDT CPT-95762 Administration single or combination vaccine inc oral 16:45:[address] [employer] CPT-65772 Influenza split virus > age 3 16:45:[address] [employer] CPT-97960 Spec Collection and Handling Fee 10:35:[address] [employer]
--- OUTSIDE RECORDS SUMMARY | 2019-04-22 10:45 | XMS REPORT | Clinical Summary ---
Author Author Admin, [place] Organization [employer] Address Unknown Phone Unavailable Allergies, Adverse Reactions, [...] elsewhere classified Pruritus 698.9 Active Jillina Frazell [employer] Unspecified pruritic disorder Urticaria 708.9 Active Jillina Frazell [employer] Unspecified urticaria DEPRESSION ICD-311 Inactive Cayetano Skinner [...] 1 tab po q am RANITIDINE HCL 56404854877 Active Jillina Frazell [employer] Active ZYRTEC ALLERGY 10 MG CAPS 1 po am CETIRIZINE HCL 20502498909 Active Jillina Frazell [employer] Active PREDNISONE 20 MG TAB 2 tabs daily for 4 days, 1 tab daily for 4 days, 1/2 tab daily for 4 days PREDNISONE 44004866386 Active Jillina Frazell [employer] Active VENLAFAXINE HCL 75 MG ORAL TABS 1.5 po BID VENLAFAXINE HCL 42469332546 Active Cayetano Skinner MD Active TRAZODONE HCL 100 MG ORAL TABS 0.5 to 1 po qHS PRN Insomnia TRAZODONE HCL 51091915826 Active Cayetano Skinner MD Active SERTRALINE HCL 100 MG ORAL TABS 2 po qd SERTRALINE HCL 75979080364 No Longer Active Cayetano Skinner MD Active MACROBID CAPS 1 cap po qd. NITROFURANTOIN MONOHYD MACRO CAPS 66100101946 No Longer Active Kimberly Brown MD Active SUBOXONE 8-2 MG SL FILM 1 1/2 STRIPS QD BUPRENORPHINE HCL-NALOXONE HCL 45502062354 Active Cayetano Skinner MD Active CIPRO 500 MG TAB 1 tablet by mouth twice daily CIPROFLOXACIN HCL 35353130410 No Longer Active Cayetano Skinner MD Active MACROBID 100 MG ORAL CAPS Take one by mouth daily NITROFURANTOIN MONOHYD MACRO 46291565444 No Longer Active Kimberly Brown MD Active SUBOXONE 8-2 MG SUBL 2 po qd BUPRENORPHINE HCL-NALOXONE HCL 36361997366 No Longer Active Kimberly Brown MD Active HYDROCORTISONE 2.5 % EXT CREA Apply three times a day to affected area HYDROCORTISONE 57321933914 No Longer Active Kimberly Brown MD Active AUGMENTIN 500-125 MG TAB Take 1 capsule by mouth three times a day X 10 days AMOXICILLIN-POT CLAVULANATE 65051883910 No Longer Active Connie Reyes APRN Active BACTRIM DS 800-160 MG TAB 1 tab by mouth twice daily TRIMETHOPRIM-SULFAMETHOXAZOLE 16648731568 No Longer Active Cayetano Skinner MD Active ZITHROMAX Z-MARTI 250 MG TABS 2 today, then 1 daily for 4 days AZITHROMYCIN 95605041873 No Longer Active Jensen Santiago MD Active CETIRIZINE HCL 10 MG TABS ONE DAILY CETIRIZINE HCL 32108215311 No Longer Active Jensen Santiago MD Active KLONOPIN 1 MG TAB 1/2 tab bid CLONAZEPAM 69237568450 No Longer Active Jensen Santiago MD Active ZOLPIDEM TARTRATE 10 MG TABS 1 q hs as needed for sleep ZOLPIDEM TARTRATE 96440640376 No Longer Active Jensen Santiago MD Active CELEXA 40 MG TABS Take one by mouth daily CITALOPRAM HYDROBROMIDE 02234312139 No Longer Active Jensen Santiago MD Active AMOXICILLIN 875 MG TABS 1 tab by mouth twice daily AMOXICILLIN 56606536804 No Longer Active Cayetano Skinner MD Active FLAGYL 500 MG TAB 1 tablet by mouth two times daily METRONIDAZOLE 83482785753 No Longer Active Cayetano Skinner MD Active FLAGYL 500 MG TAB 1 tablet by mouth two times daily METRONIDAZOLE 58522654662 No Longer Active Cayetano Skinner MD Active BUSPIRONE HCL 15 MG TABS 1/2 PO BID BUSPIRONE HCL 43019601901 No Longer Active Cayetano Skinner MD Active BUSPIRONE HCL 15 MG TABS 1/2 PO BID BUSPIRONE HCL 15 MG TABS 304388 BUSPIRONE HCL Inactive CELEXA 40 MG TABS Take one by mouth daily CELEXA 40 MG TABS 619931 CITALOPRAM HYDROBROMIDE Inactive ZOLPIDEM TARTRATE 10 MG TABS 1 q hs as needed for sleep ZOLPIDEM TARTRATE 10 MG TABS 582698 ZOLPIDEM TARTRATE Inactive KLONOPIN 1 MG TAB 1/2 tab bid KLONOPIN 1 MG TAB 392354 CLONAZEPAM Inactive CETIRIZINE HCL 10 MG TABS ONE DAILY CETIRIZINE HCL 10 MG TABS 7932812 CETIRIZINE HCL Inactive HYDROCORTISONE 2.5 % EXT CREA Apply three times a day to affected area HYDROCORTISONE 2.5 % EXT CREA 745902 HYDROCORTISONE Inactive SUBOXONE 8-2 MG SUBL 2 po qd SUBOXONE 8-2 MG SUBL BUPRENORPHINE HCL-NALOXONE HCL Inactive CIPRO 500 MG TAB 1 tablet by mouth twice daily CIPRO 500 MG TAB 564249 CIPROFLOXACIN HCL Inactive MACROBID CAPS 1 cap po qd. MACROBID CAPS NITROFURANTOIN MONOHYD MACRO CAPS Inactive FLAGYL 500 MG TAB 1 tablet by mouth two times daily FLAGYL 500 MG TAB 073555 METRONIDAZOLE Inactive FLAGYL 500 MG TAB 1 tablet by mouth two times daily FLAGYL 500 MG TAB 642468 METRONIDAZOLE Inactive AMOXICILLIN 875 MG TABS 1 tab by mouth twice daily AMOXICILLIN 875 MG TABS 474580 AMOXICILLIN Inactive ZITHROMAX Z-MARTI 250 MG TABS 2 today, then 1 daily for 4 days ZITHROMAX Z-MARTI 250 MG TABS 9617877 AZITHROMYCIN Inactive BACTRIM DS 800-160 MG TAB 1 tab by mouth twice daily BACTRIM DS 800-160 MG TAB 338861 TRIMETHOPRIM-SULFAMETHOXAZOLE Inactive AUGMENTIN 500-125 MG TAB Take 1 capsule by mouth three times a day X 10 days AUGMENTIN 500-125 MG TAB 264020 AMOXICILLIN-POT CLAVULANATE Inactive MACROBID 100 MG ORAL CAPS Take one by mouth daily MACROBID 100 MG ORAL CAPS 2422126 NITROFURANTOIN MONOHYD MACRO Inactive Immunizations Vaccine Administration Date Value Standard Description Seasonal influenza vaccine, injectable, containing preservative, for > 3 years old (Afluria, FluLaval, Fluzone, Fluvirin, Fluarix, Agriflu(>=18 yo)) Fluzone (>3 yrs.) [[id number]] Influenza, seasonal, injectable Vital Signs Date Name [...] Measured blood pressure, diastolic 78 mm[Hg] BP motnejo blood pressure, systolic 134 mm[Hg] BP sys [...] ... - Chemistry sodium, serum 138 mmol/L 254-658 1438/09/12 carbon dioxide, venous blood 29.9 mmol/L 21.0-32.0 [...] 5.0-8.5 Encounters Code Encounter Date Provider Facility CPT-12382 Level 3 Est. Patient 09:36:26 CDT Dorothy Ayala [facility] CPT-21960 Level 3 Est. Patient 16:55:26 CDT Cayetano Skinner MD [facility] CPT-52635 Level 2 Est. Patient 11:28:42 CDT Kimberly Brown MD [facility] CPT-60209 Level 3 Est. Patient 15:04:35 CDT Cayetano Skinner MD [facility] CPT-61479 Level 3 Est. Patient 15:07:05 BARREL STRAIGHTENER Cayetano Skinner MD [facility] CPT-70820 Level 3 Est. Patient 09:56:19 CDT Connie Reyes [facility] CPT-42607 Level 3 Est. Patient 12:31:18 BARREL STRAIGHTENER Jensen Santiago MD [facility] CPT-01288 Level 3 Est. Patient 10:35:02 BARREL STRAIGHTENER Cayetano Skinner MD [facility] CPT-40767 Level 3 Est. Patient 12:50:08 BARREL STRAIGHTENER Cayetano Skinner MD [facility] Procedures Code Procedure Name Date Entry Date Standard Description CPT-80433 Bladder Scan 19:49:06 BARREL STRAIGHTENER CPT-03193 Spec Collection and Handling Fee 11:57:40 CDT CPT-J1020 Depo Medrol 60 mg (Methyl Prednisolone Acetate) 12:03:49 CDT CPT-12202 Abx/Therapy Injection 12:03:48 CDT CPT-J1020 Depo Medrol 60 mg (Methyl Prednisolone Acetate) 09:56:19 CDT CPT-90897 Spec Collection and Handling Fee 12:10:42 CDT CPT-PV Prev. Care Visit 12:10:42 CDT CPT-35258 Administration single or combination vaccine inc oral 16:45:52 BARREL STRAIGHTENER CPT-23917 Influenza split virus > age 3 16:45:52 BARREL STRAIGHTENER CPT-91412 Spec Collection and Handling Fee 10:35:02 BARREL STRAIGHTENER
--- OUTSIDE RECORDS SUMMARY | 2019-04-22 10:46 | XMS REPORT | Clinical Summary ---
Author Author Admin, [place] Organization [employer] Address Unknown Phone Unavailable Allergies, Adverse Reactions, [...] elsewhere classified Pruritus 698.9 Active Fadiaina Derrelll [employer] Unspecified pruritic disorder Urticaria 708.9 Active Dorothy [...] 1 tab po q am RANITIDINE HCL 70416614449 Active Jillina Frazell [employer] Active ZYRTEC ALLERGY 10 MG CAPS 1 po am CETIRIZINE HCL 12490370273 Active Jillina Frazell [employer] Active PREDNISONE 20 MG TAB 2 tabs daily for 4 days, 1 tab daily for 4 days, /2 tab daily for 4 days PREDNISONE 53964862524 Active Dorothy Scotttamara [place] Active VENLAFAXINE HCL 75 MG ORAL TABS 1.5 po BID VENLAFAXINE HCL 40582363649 Active Cayetano Skinner MD Active TRAZODONE HCL 100 MG ORAL TABS 0.5 to 1 po qHS PRN Insomnia TRAZODONE HCL 11343132811 Active Cayetano Skinner MD Active SERTRALINE HCL 100 MG ORAL TABS 2 po qd SERTRALINE HCL 44034640544 No Longer Active Cayetano Skinner MD Active MACROBID CAPS 1 cap po qd. NITROFURANTOIN MONOHYD MACRO CAPS 05433184054 No Longer Active Kimberly Brown MD Active SUBOXONE 8-2 MG SL FILM 1 1/2 STRIPS QD BUPRENORPHINE HCL-NALOXONE HCL 31564705649 Active Cayetano Skinner MD Active CIPRO 500 MG TAB 1 tablet by mouth twice daily CIPROFLOXACIN HCL 35716750871 No Longer Active Cayetano Skinner MD Active MACROBID 100 MG ORAL CAPS Take one by mouth daily NITROFURANTOIN MONOHYD MACRO 62308101340 No Longer Active Kimberly Brown MD Active SUBOXONE 8-2 MG SUBL 2 po qd BUPRENORPHINE HCL-NALOXONE HCL 94926786022 No Longer Active Kimberly Brown MD Active HYDROCORTISONE 2.5 % EXT CREA Apply three times a day to affected area HYDROCORTISONE 14595923580 No Longer Active Kimberly Brown MD Active AUGMENTIN 500-125 MG TAB Take 1 capsule by mouth three times a day X 10 days AMOXICILLIN-POT CLAVULANATE 29340999649 No Longer Active Connie Reyes APRN Active BACTRIM DS 800-160 MG TAB 1 tab by mouth twice daily TRIMETHOPRIM-SULFAMETHOXAZOLE 33787743006 No Longer Active Cayetano Skinner MD Active ZITHROMAX Z-MARTI 250 MG TABS 2 today, then 1 daily for 4 days AZITHROMYCIN 61107546781 No Longer Active Jensen Santiago MD Active CETIRIZINE HCL 10 MG TABS ONE DAILY CETIRIZINE HCL 27189657349 No Longer Active Jensen Santiago MD Active KLONOPIN 1 MG TAB 1/2 tab bid CLONAZEPAM 24895536547 No Longer Active Jensen Santiago MD Active ZOLPIDEM TARTRATE 10 MG TABS 1 q hs as needed for sleep ZOLPIDEM TARTRATE 24549118011 No Longer Active Jensen Santiago MD Active CELEXA 40 MG TABS Take one by mouth daily CITALOPRAM HYDROBROMIDE 67757025511 No Longer Active Jensen Santiago MD Active AMOXICILLIN 875 MG TABS 1 tab by mouth twice daily AMOXICILLIN 48963396895 No Longer Active Cayetano Skinner MD Active FLAGYL 500 MG TAB 1 tablet by mouth two times daily METRONIDAZOLE 98925311536 No Longer Active Cayetano Skinner MD Active FLAGYL 500 MG TAB 1 tablet by mouth two times daily METRONIDAZOLE 38734136819 No Longer Active Cayetano Skinner MD Active BUSPIRONE HCL 15 MG TABS 1/2 PO BID BUSPIRONE HCL 89879413697 No Longer Active Cayetano Skinner MD Active BUSPIRONE HCL 15 MG TABS 1/2 PO BID BUSPIRONE HCL 15 MG TABS 058205 BUSPIRONE HCL Inactive CELEXA 40 MG TABS Take one by mouth daily CELEXA 40 MG TABS 760641 CITALOPRAM HYDROBROMIDE Inactive ZOLPIDEM TARTRATE 10 MG TABS 1 q hs as needed for sleep ZOLPIDEM TARTRATE 10 MG TABS 844148 ZOLPIDEM TARTRATE Inactive KLONOPIN 1 MG TAB 1/2 tab bid KLONOPIN 1 MG TAB 614170 CLONAZEPAM Inactive CETIRIZINE HCL 10 MG TABS ONE DAILY CETIRIZINE HCL 10 MG TABS 9371784 CETIRIZINE HCL Inactive HYDROCORTISONE 2.5 % EXT CREA Apply three times a day to affected area HYDROCORTISONE 2.5 % EXT CREA 177389 HYDROCORTISONE Inactive SUBOXONE 8-2 MG SUBL 2 po qd SUBOXONE 8-2 MG SUBL BUPRENORPHINE HCL-NALOXONE HCL Inactive CIPRO 500 MG TAB 1 tablet by mouth twice daily CIPRO 500 MG TAB 953520 CIPROFLOXACIN HCL Inactive MACROBID CAPS 1 cap po qd. MACROBID CAPS NITROFURANTOIN MONOHYD MACRO CAPS Inactive FLAGYL 500 MG TAB 1 tablet by mouth two times daily FLAGYL 500 MG TAB 848770 METRONIDAZOLE Inactive FLAGYL 500 MG TAB 1 tablet by mouth two times daily FLAGYL 500 MG TAB 920717 METRONIDAZOLE Inactive AMOXICILLIN 875 MG TABS 1 tab by mouth twice daily AMOXICILLIN 875 MG TABS 129164 AMOXICILLIN Inactive ZITHROMAX Z-MARTI 250 MG TABS 2 today, then 1 daily for 4 days ZITHROMAX Z-MARTI 250 MG TABS 6698904 AZITHROMYCIN Inactive BACTRIM DS 800-160 MG TAB 1 tab by mouth twice daily BACTRIM DS 800-160 MG TAB 370682 TRIMETHOPRIM-SULFAMETHOXAZOLE Inactive AUGMENTIN 500-125 MG TAB Take 1 capsule by mouth three times a day X 10 days AUGMENTIN 500-125 MG TAB 712308 AMOXICILLIN-POT CLAVULANATE Inactive MACROBID 100 MG ORAL CAPS Take one by mouth daily MACROBID 100 MG ORAL CAPS 1550555 NITROFURANTOIN MONOHYD MACRO Inactive Immunizations Vaccine Administration Date Value Standard Description Seasonal influenza vaccine, injectable, containing preservative, for > 3 years old (Afluria, FluLaval, Fluzone, Fluvirin, Fluarix, Agriflu(>=18 yo)) Fluzone (>3 yrs.) [[id number]] Influenza, seasonal, injectable Vital Signs Date Name [...] Range Description Lab Report: C-REACTIVE PROTEIN, HIV-1/2 Agn/[place]/05506, Drug Abuse Pnl 10 ... - Chemistry rapid plasma reagin antibody titer NON-REACTIVE NON-REACTIVE Lab Report: C-REACTIVE PROTEIN, HIV-1/2 Agn/[place]/08901, Drug Abuse Pnl 10 ... - Lab chlamydia DNA probe NOT DETECTED NOT DETECTED Lab Report: C-REACTIVE PROTEIN, HIV-1/2 Agn/[place]/18622, Drug Abuse Pnl 10 ... - Microbiology Neisseria gonorrhoeae DNA probe NOT DETECTED NOT DETECTED Lab Report: CBC W/DIFF, Comp. Metabolic Panel, Free Thyroxine (L), Thyro ... - Chemistry sodium, serum 138 mmol/L 435-181 4294/09/12 carbon dioxide, venous blood 29.9 mmol/L 21.0-32.0 [...] Free Thyroxine (L), Thyro ... - Hematology erythrocyte (RBC) count 4.32 10^6/MM^3 10*6/mm3 3.80-5.80 lymphocytes as percent of blood leukocytes 30.0 % 20.5-51.1 monocytes as percent of blood leukocytes 6.1 % 1.7-9.3 neutrophils as percent of blood leukocytes 61.8 % 42.2-75.2 leukocyte count, blood 5.7 10^3/MM^3 10*3/mm3 4.6-10.2 hemoglobin, blood 13.3 g/dL 12.0-16.0 hematocrit, blood 40.3 % 37.0-47.0 mean corpuscular volume, RBC 93 fL 80-97 mean corpuscular hemoglobin, RBC 30.8 pg 27.0-31.2 mean corpuscular hemoglobin concentration, RBC 33.0 G/DL % 31.8-35.4 red blood cell distribution width 12.3 % 11.6-14.8 platelet count 329 10^3/MM^3 10*3/mm3 142-424 Lab Report: UADIP W/MICRO, AUTO - Chemistry RBC, urine, dipstick Negative Negative protein, total urine random Negative mg/dL Negative Lab Report: UADIP W/MICRO, AUTO - Urinalysis glucose, urine, semiquantitative Negative Negative urobilinogen, urine, semiquantitative (dipstick) 0.2 E.U./dL Normal leukocyte esterase, urine, by dipstick Negative Negative nitrite, urine, semiquantitative Negative Negative appearance, urine Clear Clear specific gravity, urine 1.010 1.000-1.030 pH, urine, semiquantitative 5.5 5.0-8.5 urine color Yellow Colorless;Lightyellow;Straw;Yellow ketones, urine, by test strip Negative Negative bilirubin, urine Negative Negative Encounters Code Encounter Date Provider Facility CPT-53415 Level 4 Est. Patient 22:21:42 CDT Dorothy Ayala [facility] CPT-28811 Level 4 Est. Patient 21:18:20 CDT Dorothy Ayala [facility] CPT-95969 Level 3 Est. Patient 10:06:58 CDT Dorothy Dovesegun [facility] CPT-29039 Level 3 Est. Patient 09:36:26 CDT Dorothy Ayala [facility] CPT-63294 Level 3 Est. Patient 16:55:26 CDT Cayetano Skinner MD [facility] CPT-89037 Level 2 Est. Patient 11:28:42 CDT Kimberly Brown MD [facility] CPT-46398 Level 3 Est. Patient 15:04:35 CDT Cayetano Skinner MD [facility] CPT-27106 Level 3 Est. Patient 15:07:05 GRAPHIC ILLUSTRATOR Cayetano Skinenr MD [facility] CPT-51056 Level 3 Est. Patient 09:56:19 CDT Connie Reyes [facility] CPT-53319 Level 3 Est. Patient 12:31:18 GRAPHIC ILLUSTRATOR Jensen Santiago MD [facility] CPT-45687 Level 3 Est. Patient 10:35:02 GRAPHIC ILLUSTRATOR Cayetano Skinner MD [facility] CPT-18412 Level 3 Est. Patient 12:50:08 GRAPHIC ILLUSTRATOR Cayetano Skinner MD [facility] Procedures Code Procedure Name Date Entry Date Standard Description CPT-50530 Venipuncture Draw Fee 10:10:37 CDT CPT-91756 [facility] 10:06:58 CDT CPT-83305 Bladder Scan 19:49:06 GRAPHIC ILLUSTRATOR CPT-49806 Spec Collection and Handling Fee 11:57:40 CDT CPT-J1020 Depo Medrol 60 mg (Methyl Prednisolone Acetate) 12:03:49 CDT CPT-82564 Abx/Therapy Injection 12:03:48 CDT CPT-J1020 Depo Medrol 60 mg (Methyl Prednisolone Acetate) 09:56:19 CDT CPT-32586 Spec Collection and Handling Fee 12:10:42 CDT CPT-PV Prev. Care Visit 12:10:42 CDT CPT-99124 Administration single or combination vaccine inc oral 16:45:52 GRAPHIC ILLUSTRATOR CPT-19694 Influenza split virus > age 3 16:45:52 GRAPHIC ILLUSTRATOR CPT-43656 Spec Collection and Handling Fee 10:35:02 GRAPHIC ILLUSTRATOR
--- OUTSIDE RECORDS SUMMARY | 2019-04-22 10:46 | XMS REPORT | Clinical Summary ---
Author Author Admin, [place] Organization [facility] Address Unknown Phone Unavailable Allergies, Adverse [...] days, then 1 po qd SERTRALINE HCL 46496491425 Active Cayetano Skinner MD Active SUBOXONE 8-2 MG SL FILM 1 1/2 STRIPS QD BUPRENORPHINE HCL-NALOXONE HCL 71490219547 Active Cayetano Skinner MD Active CIPRO 500 MG TAB 1 tablet by mouth twice daily CIPROFLOXACIN HCL 11649675733 No Longer Active Cayetano Skinner MD Active MACROBID 100 MG ORAL CAPS Take one by mouth daily NITROFURANTOIN MONOHYD MACRO 56461675703 Active Kimberly Brown MD Active SUBOXONE 8-2 MG SUBL 2 po qd BUPRENORPHINE HCL-NALOXONE HCL 54987029857 No Longer Active Kimberly Brown MD Active HYDROCORTISONE 2.5 % EXT CREA Apply three times a day to affected area HYDROCORTISONE 16669537864 No Longer Active Kimberly Brown MD Active AUGMENTIN 500-125 MG TAB Take 1 capsule by mouth three times a day X 10 days AMOXICILLIN-POT CLAVULANATE 26699145853 No Longer Active Connie Reyes APRN Active BACTRIM DS 800-160 MG TAB 1 tab by mouth twice daily TRIMETHOPRIM-SULFAMETHOXAZOLE 51901465787 No Longer Active Cayetano Skinner MD Active ZITHROMAX Z-MARTI 250 MG TABS 2 today, then 1 daily for 4 days AZITHROMYCIN 90294421716 No Longer Active Jensen Santiago MD Active CETIRIZINE HCL 10 MG TABS ONE DAILY CETIRIZINE HCL 67791588020 No Longer Active Jensen Santiago MD Active KLONOPIN 1 MG TAB 1/2 tab bid CLONAZEPAM 18293728020 No Longer Active Jensen Santiago MD Active ZOLPIDEM TARTRATE 10 MG TABS 1 q hs as needed for sleep ZOLPIDEM TARTRATE 78543627315 No Longer Active Jensen Santiago MD Active CELEXA 40 MG TABS Take one by mouth daily CITALOPRAM HYDROBROMIDE 51016587902 No Longer Active Jensen Santiago MD Active AMOXICILLIN 875 MG TABS 1 tab by mouth twice daily AMOXICILLIN 51719121067 No Longer Active Cayetano Skinner MD Active FLAGYL 500 MG TAB 1 tablet by mouth two times daily METRONIDAZOLE 27257861797 No Longer Active Cayetano Skinner MD Active FLAGYL 500 MG TAB 1 tablet by mouth two times daily METRONIDAZOLE 42807471906 No Longer Active Cayetano Skinner MD Active BUSPIRONE HCL 15 MG TABS 1/2 PO BID BUSPIRONE HCL 67806117751 No Longer Active Cayetano Skinner MD Active BUSPIRONE HCL 15 MG TABS 1/2 PO BID BUSPIRONE HCL 15 MG TABS 823587 BUSPIRONE HCL Inactive CELEXA 40 MG TABS Take one by mouth daily CELEXA 40 MG TABS 417337 CITALOPRAM HYDROBROMIDE Inactive ZOLPIDEM TARTRATE 10 MG TABS 1 q hs as needed for sleep ZOLPIDEM TARTRATE 10 MG TABS 239326 ZOLPIDEM TARTRATE Inactive KLONOPIN 1 MG TAB 1/2 tab bid KLONOPIN 1 MG TAB 766298 CLONAZEPAM Inactive CETIRIZINE HCL 10 MG TABS ONE DAILY CETIRIZINE HCL 10 MG TABS 4283118 CETIRIZINE HCL Inactive HYDROCORTISONE 2.5 % EXT CREA Apply three times a day to affected area HYDROCORTISONE 2.5 % EXT CREA 569913 HYDROCORTISONE Inactive SUBOXONE 8-2 MG SUBL 2 po qd SUBOXONE 8-2 MG SUBL BUPRENORPHINE HCL-NALOXONE HCL Inactive CIPRO 500 MG TAB 1 tablet by mouth twice daily CIPRO 500 MG TAB 896559 CIPROFLOXACIN HCL Inactive FLAGYL 500 MG TAB 1 tablet by mouth two times daily FLAGYL 500 MG TAB 719538 METRONIDAZOLE Inactive FLAGYL 500 MG TAB 1 tablet by mouth two times daily FLAGYL 500 MG TAB 072146 METRONIDAZOLE Inactive AMOXICILLIN 875 MG TABS 1 tab by mouth twice daily AMOXICILLIN 875 MG TABS 050590 AMOXICILLIN Inactive ZITHROMAX Z-MARTI 250 MG TABS 2 today, then 1 daily for 4 days ZITHROMAX Z-MARTI 250 MG TABS 9831875 AZITHROMYCIN Inactive BACTRIM DS 800-160 MG TAB 1 tab by mouth twice daily BACTRIM DS 800-160 MG TAB 882082 TRIMETHOPRIM-SULFAMETHOXAZOLE Inactive AUGMENTIN 500-125 MG TAB Take 1 capsule by mouth three times a day X 10 days AUGMENTIN 500-125 MG TAB 514028 AMOXICILLIN-POT CLAVULANATE Inactive Immunizations Vaccine Administration Date Value Standard Description Seasonal influenza vaccine, injectable, containing preservative, for > 3 years old (Afluria, FluLaval, Fluzone, Fluvirin, Fluarix, Agriflu(>=18 yo)) Fluzone (>3 yrs.) [[id number]] Influenza, seasonal, injectable Vital Signs Date Name [...] Measured Encounters Code Encounter Date Provider Facility CPT-91968 Level 3 Est. Patient 15:07:05 LEAD CUSTODIAN Cayetano Skinner MD [facility] CPT-88060 Level 3 Est. Patient 09:56:19 CDT Connie Reyes APRN [facility] CPT-93104 Level 3 Est. Patient 12:31:18 LEAD CUSTODIAN Jensen Santiago MD [facility] CPT-00990 Level 3 Est. Patient 10:35:02 LEAD CUSTODIAN Cayetano Skinner MD [facility] CPT-90240 Level 3 Est. Patient 12:50:08 LEAD CUSTODIAN Cayetano Skinner MD [facility] Procedures Code Procedure Name Date Entry Date Standard Description CPT-07331 Bladder Scan 19:49:06 LEAD CUSTODIAN CPT-40971 Spec Collection and Handling Fee 11:57:40 CDT CPT-J1020 Depo Medrol 60 mg (Methyl Prednisolone Acetate) 12:03:49 CDT CPT-82653 Abx/Therapy Injection 12:03:48 CDT CPT-J1020 Depo Medrol 60 mg (Methyl Prednisolone Acetate) 09:56:19 CDT CPT-61355 Spec Collection and Handling Fee 12:10:42 CDT CPT-PV Prev. Care Visit 12:10:42 CDT CPT-95522 Administration single or combination vaccine inc oral 16:45:52 LEAD CUSTODIAN CPT-67213 Influenza split virus > age 3 16:45:52 LEAD CUSTODIAN CPT-59730 Spec Collection and Handling Fee 10:35:02 LEAD CUSTODIAN
--- OUTSIDE RECORDS SUMMARY | 2019-04-22 10:47 | XMS REPORT | Clinical Summary ---
Author Author Admin, [place] Organization [employer] Address Unknown Phone Unavailable Allergies, Adverse Reactions, [...] elsewhere classified Pruritus 698.9 Active Jillina Frazell CORPORATE SALES REPRESENTATIVE Unspecified pruritic disorder Urticaria 708.9 Active Jillina Frazell CORPORATE SALES REPRESENTATIVE Unspecified urticaria DEPRESSION ICD-311 Inactive Cayetano Skinner [...] 1 tab po q am RANITIDINE HCL 14495522504 Active Jillina Frazell CORPORATE SALES REPRESENTATIVE Active ZYRTEC ALLERGY 10 MG CAPS 1 po am CETIRIZINE HCL 95620879838 Active Jillina Frazell CORPORATE SALES REPRESENTATIVE Active PREDNISONE 20 MG TAB 2 tabs daily for 4 days, 1 tab daily for 4 days, 1/2 tab daily for 4 days PREDNISONE 07345694642 Active Jillina Frazell CORPORATE SALES REPRESENTATIVE Active VENLAFAXINE HCL 75 MG ORAL TABS 1.5 po BID VENLAFAXINE HCL 14549455030 Active Cayetano Skinner MD Active TRAZODONE HCL 100 MG ORAL TABS 0.5 to 1 po qHS PRN Insomnia TRAZODONE HCL 86693012900 Active Cayetano Skinner MD Active SERTRALINE HCL 100 MG ORAL TABS 2 po qd SERTRALINE HCL 49198270784 No Longer Active Cayetano Skinner MD Active MACROBID CAPS 1 cap po qd. NITROFURANTOIN MONOHYD MACRO CAPS 98114482391 No Longer Active Kimberly Brown MD Active SUBOXONE 8-2 MG SL FILM 1 1/2 STRIPS QD BUPRENORPHINE HCL-NALOXONE HCL 77710716093 Active Cayetano Skinner MD Active CIPRO 500 MG TAB 1 tablet by mouth twice daily CIPROFLOXACIN HCL 59764577367 No Longer Active Cayetano Skinner MD Active MACROBID 100 MG ORAL CAPS Take one by mouth daily NITROFURANTOIN MONOHYD MACRO 64126511443 No Longer Active Kimberly Brown MD Active SUBOXONE 8-2 MG SUBL 2 po qd BUPRENORPHINE HCL-NALOXONE HCL 65308449545 No Longer Active Kimberly Brown MD Active HYDROCORTISONE 2.5 % EXT CREA Apply three times a day to affected area HYDROCORTISONE 87874242081 No Longer Active Kimberly Brown MD Active AUGMENTIN 500-125 MG TAB Take 1 capsule by mouth three times a day X 10 days AMOXICILLIN-POT CLAVULANATE 85601354574 No Longer Active Connie Reyes APRN Active BACTRIM DS 800-160 MG TAB 1 tab by mouth twice daily TRIMETHOPRIM-SULFAMETHOXAZOLE 81847209539 No Longer Active Cayetano Skinner MD Active ZITHROMAX Z-MARTI 250 MG TABS 2 today, then 1 daily for 4 days AZITHROMYCIN 16624831354 No Longer Active Jensen Santiago MD Active CETIRIZINE HCL 10 MG TABS ONE DAILY CETIRIZINE HCL 17169294987 No Longer Active Jensen Santiago MD Active KLONOPIN 1 MG TAB 1/2 tab bid CLONAZEPAM 02044350966 No Longer Active Jensen Santiago MD Active ZOLPIDEM TARTRATE 10 MG TABS 1 q hs as needed for sleep ZOLPIDEM TARTRATE 15892846552 No Longer Active Jensen Santiago MD Active CELEXA 40 MG TABS Take one by mouth daily CITALOPRAM HYDROBROMIDE 51593770344 No Longer Active Jensen Santiago MD Active AMOXICILLIN 875 MG TABS 1 tab by mouth twice daily AMOXICILLIN 31401209073 No Longer Active Cayetano Skinner MD Active FLAGYL 500 MG TAB 1 tablet by mouth two times daily METRONIDAZOLE 81115262599 No Longer Active Cayetano Skinner MD Active FLAGYL 500 MG TAB 1 tablet by mouth two times daily METRONIDAZOLE 60208896612 No Longer Active Cayetano Skinner MD Active BUSPIRONE HCL 15 MG TABS 1/2 PO BID BUSPIRONE HCL 74020731751 No Longer Active Cayetano Skinner MD Active BUSPIRONE HCL 15 MG TABS 1/2 PO BID BUSPIRONE HCL 15 MG TABS 668431 BUSPIRONE HCL Inactive CELEXA 40 MG TABS Take one by mouth daily CELEXA 40 MG TABS 385542 CITALOPRAM HYDROBROMIDE Inactive ZOLPIDEM TARTRATE 10 MG TABS 1 q hs as needed for sleep ZOLPIDEM TARTRATE 10 MG TABS 012129 ZOLPIDEM TARTRATE Inactive KLONOPIN 1 MG TAB 1/2 tab bid KLONOPIN 1 MG TAB 574540 CLONAZEPAM Inactive CETIRIZINE HCL 10 MG TABS ONE DAILY CETIRIZINE HCL 10 MG TABS 6170840 CETIRIZINE HCL Inactive HYDROCORTISONE 2.5 % EXT CREA Apply three times a day to affected area HYDROCORTISONE 2.5 % EXT CREA 191292 HYDROCORTISONE Inactive SUBOXONE 8-2 MG SUBL 2 po qd SUBOXONE 8-2 MG SUBL BUPRENORPHINE HCL-NALOXONE HCL Inactive CIPRO 500 MG TAB 1 tablet by mouth twice daily CIPRO 500 MG TAB 836819 CIPROFLOXACIN HCL Inactive MACROBID CAPS 1 cap po qd. MACROBID CAPS NITROFURANTOIN MONOHYD MACRO CAPS Inactive FLAGYL 500 MG TAB 1 tablet by mouth two times daily FLAGYL 500 MG TAB 473920 METRONIDAZOLE Inactive FLAGYL 500 MG TAB 1 tablet by mouth two times daily FLAGYL 500 MG TAB 703040 METRONIDAZOLE Inactive AMOXICILLIN 875 MG TABS 1 tab by mouth twice daily AMOXICILLIN 875 MG TABS 462301 AMOXICILLIN Inactive ZITHROMAX Z-MARTI 250 MG TABS 2 today, then 1 daily for 4 days ZITHROMAX Z-MARTI 250 MG TABS 0019421 AZITHROMYCIN Inactive BACTRIM DS 800-160 MG TAB 1 tab by mouth twice daily BACTRIM DS 800-160 MG TAB 271628 TRIMETHOPRIM-SULFAMETHOXAZOLE Inactive AUGMENTIN 500-125 MG TAB Take 1 capsule by mouth three times a day X 10 days AUGMENTIN 500-125 MG TAB 642578 AMOXICILLIN-POT CLAVULANATE Inactive MACROBID 100 MG ORAL CAPS Take one by mouth daily MACROBID 100 MG ORAL CAPS 3934587 NITROFURANTOIN MONOHYD MACRO Inactive Immunizations Vaccine Administration Date Value Standard Description Seasonal influenza vaccine, injectable, containing preservative, for > 3 years old (Afluria, FluLaval, Fluzone, Fluvirin, Fluarix, Agriflu(>=18 yo)) Fluzone (>3 yrs.) [[id number]] Influenza, seasonal, injectable Vital Signs Date Name [...] ... - Chemistry sodium, serum 138 mmol/L 666-193 3434/09/12 carbon dioxide, venous blood 29.9 mmol/L 21.0-32.0 [...] 5.0-8.5 Encounters Code Encounter Date Provider Facility CPT-93030 Level 3 Est. Patient 09:36:26 CDT Dorothy Ayala [facility] CPT-05698 Level 3 Est. Patient 16:55:26 CDT Cayetano Skinner MD [facility] CPT-70156 Level 2 Est. Patient 11:28:42 CDT Kimberly Brown MD [facility] CPT-52277 Level 3 Est. Patient 15:04:35 CDT Cayetano Skinner MD [facility] CPT-41897 Level 3 Est. Patient 15:07:05 POOL ATTENDANT Cayetano Skinner MD [facility] CPT-21923 Level 3 Est. Patient 09:56:19 CDT Connie Reyes [facility] CPT-14203 Level 3 Est. Patient 12:31:18 POOL ATTENDANT Jensen Santiago MD [facility] CPT-21112 Level 3 Est. Patient 10:35:02 POOL ATTENDANT Cayetano Skinner MD [facility] CPT-73487 Level 3 Est. Patient 12:50:08 POOL ATTENDANT Cayetano Skinner MD [facility] Procedures Code Procedure Name Date Entry Date Standard Description CPT-65098 Bladder Scan 19:49:06 POOL ATTENDANT CPT-10677 Spec Collection and Handling Fee 11:57:40 CDT CPT-J1020 Depo Medrol 60 mg (Methyl Prednisolone Acetate) 12:03:49 CDT CPT-13173 Abx/Therapy Injection 12:03:48 CDT CPT-J1020 Depo Medrol 60 mg (Methyl Prednisolone Acetate) 09:56:19 CDT CPT-01204 Spec Collection and Handling Fee 12:10:42 CDT CPT-PV Prev. Care Visit 12:10:42 CDT CPT-97668 Administration single or combination vaccine inc oral 16:45:52 POOL ATTENDANT CPT-72544 Influenza split virus > age 3 16:45:52 POOL ATTENDANT CPT-97100 Spec Collection and Handling Fee 10:35:02 POOL ATTENDANT
--- OUTSIDE RECORDS SUMMARY | 2019-04-22 10:47 | XMS REPORT | Clinical Summary ---
Author Author Admin, [facility] Organization [facility] Address Unknown Phone Unavailable Allergies, Adverse Reactions, Alerts Allergy Name Reaction Description Start Date Severity Status Provider No Known Allergies Lucía Schneider MA Conditions or Problems Problem Name Problem Code Onset Date Status Entry Date Provider Comment Standard Description Annotate DEPRESSION 311 Active Cayetano Skinner MD Depressive disorder, not elsewhere classified History of CERVICAL CANCER V10.41 Inactive Cayetano Skniner MD Personal history of malignant neoplasm of [...] 462 Resolved Cayetano Skinner MD Acute pharyngitis CERVICAL CANCER ICD-V10.41 Inactive Cayetano Skinner MD [...] Generic Name NDC Status Provider Patient Instruction HYDROCORTISONE 2.5 % EXT CREA Apply three times a day to affected area HYDROCORTISONE 14243975078 Active Melinda Baxter APRN Active ZITHROMAX Z-MARTI 250 MG TABS 2 today, then 1 daily for 4 days AZITHROMYCIN 97987155223 No Longer Active Jensen Santiago MD Active SUBOXONE 8-2 MG SUBL 2 po qd BUPRENORPHINE HCL-NALOXONE HCL 20981725950 Active Jensen Santiago MD Active CETIRIZINE HCL 10 MG TABS ONE DAILY CETIRIZINE HCL 08258791803 No Longer Active Jensen Santiago MD Active KLONOPIN 1 MG TAB 1/2 tab bid CLONAZEPAM 37249650794 No Longer Active Jensen Santiago MD Active ZOLPIDEM TARTRATE 10 MG TABS 1 q hs as needed for sleep ZOLPIDEM TARTRATE 62240969836 No Longer Active Jensen Santiago MD Active CELEXA 40 MG TABS Take one by mouth daily CITALOPRAM HYDROBROMIDE 08435557835 No Longer Active Jensen Santiago MD Active AMOXICILLIN 875 MG TABS 1 tab by mouth twice daily AMOXICILLIN 38594503496 No Longer Active Cayetano Skinner MD Active FLAGYL 500 MG TAB 1 tablet by mouth two times daily METRONIDAZOLE 68945647133 No Longer Active Cayetano Skinner MD Active FLAGYL 500 MG TAB 1 tablet by mouth two times daily METRONIDAZOLE 49921945929 No Longer Active Cayetano Skinner MD Active BUSPIRONE HCL 15 MG TABS 1/2 PO BID BUSPIRONE HCL 72883310736 No Longer Active Cayetano Skinner MD Active BUSPIRONE HCL 15 MG TABS 1/2 PO BID BUSPIRONE HCL 15 MG TABS 579665 BUSPIRONE HCL Inactive CELEXA 40 MG TABS Take one by mouth daily CELEXA 40 MG TABS 935169 CITALOPRAM HYDROBROMIDE Inactive ZOLPIDEM TARTRATE 10 MG TABS 1 q hs as needed for sleep ZOLPIDEM TARTRATE 10 MG TABS 486089 ZOLPIDEM TARTRATE Inactive KLONOPIN 1 MG TAB 1/2 tab bid KLONOPIN 1 MG TAB 125905 CLONAZEPAM Inactive CETIRIZINE HCL 10 MG TABS ONE DAILY CETIRIZINE HCL 10 MG TABS 4791993 CETIRIZINE HCL Inactive FLAGYL 500 MG TAB 1 tablet by mouth two times daily FLAGYL 500 MG TAB 430190 METRONIDAZOLE Inactive FLAGYL 500 MG TAB 1 tablet by mouth two times daily FLAGYL 500 MG TAB 800775 METRONIDAZOLE Inactive AMOXICILLIN 875 MG TABS 1 tab by mouth twice daily AMOXICILLIN 875 MG TABS 354232 AMOXICILLIN Inactive ZITHROMAX Z-MARTI 250 MG TABS 2 today, then 1 daily for 4 days ZITHROMAX Z-MARTI 250 MG TABS 2584322 AZITHROMYCIN Inactive Immunizations Vaccine Administration Date Value Standard Description Seasonal influenza vaccine, injectable, containing preservative, for > 3 years old (Afluria, FluLaval, Fluzone, Fluvirin, Fluarix, Agriflu(>=18 yo)) Fluzone (>3 yrs.) [[id number]] Influenza, seasonal, injectable Encounters Code Encounter Date Provider Facility CPT-56243 Level 3 Est. Patient 12:31:18 CULINARY ARTS TEACHER Jensen Santiago MD [facility] CPT-95517 Level 3 Est. Patient 10:35:02 CULINARY ARTS TEACHER Cayetano Skinner MD [facility] CPT-82444 Level 3 Est. Patient 12:50:08 CULINARY ARTS TEACHER Cayetano Skinner MD [facility] Procedures Code Procedure Name Date Entry Date Standard Description CPT-05817 Spec Collection and Handling Fee 12:10:42 CDT CPT-PV Prev. Care Visit 12:10:42 CDT CPT-47074 Administration single or combination vaccine inc oral 16:45:52 CULINARY ARTS TEACHER CPT-98780 Influenza split virus > age 3 16:45:52 CULINARY ARTS TEACHER CPT-90266 Spec Collection and Handling Fee 10:35:02 CULINARY ARTS TEACHER
--- OUTSIDE RECORDS SUMMARY | 2019-04-22 10:47 | XMS REPORT | Clinical Summary ---
Author Author Admin, [place] Organization [employer] Address Unknown Phone Unavailable Allergies, Adverse Reactions, [...] Skinner MD Dysuria Sinusitis, acute 461.9 Resolved Cayetaon Skinner MD Acute sinusitis, unspecified Pre-employment exam [...] Instruction VENLAFAXINE HCL 75 MG ORAL TABS 1.5 po BID VENLAFAXINE HCL 64289694914 Active Cayetano Skinner MD Active TRAZODONE HCL 100 MG ORAL TABS 0.5 to 1 po qHS PRN Insomnia TRAZODONE HCL 27375259664 Active Cayetano Skinner MD Active SERTRALINE HCL 100 MG ORAL TABS 2 po qd SERTRALINE HCL 42755008380 No Longer Active Cayetano Skinner MD Active MACROBID CAPS 1 cap po qd. NITROFURANTOIN MONOHYD MACRO CAPS 95280730727 No Longer Active Kimberly Brown MD Active SUBOXONE 8-2 MG SL FILM 1 1/2 STRIPS QD BUPRENORPHINE HCL-NALOXONE HCL 06152021023 Active Cayetano Skinner MD Active CIPRO 500 MG TAB 1 tablet by mouth twice daily CIPROFLOXACIN HCL 53347263865 No Longer Active Cayetano Skinner MD Active MACROBID 100 MG ORAL CAPS Take one by mouth daily NITROFURANTOIN MONOHYD MACRO 70872364313 No Longer Active Kimberly Brown MD Active SUBOXONE 8-2 MG SUBL 2 po qd BUPRENORPHINE HCL-NALOXONE HCL 89163989533 No Longer Active Kimberly Brown MD Active HYDROCORTISONE 2.5 % EXT CREA Apply three times a day to affected area HYDROCORTISONE 32672520620 No Longer Active Kimberly Brown MD Active AUGMENTIN 500-125 MG TAB Take 1 capsule by mouth three times a day X 10 days AMOXICILLIN-POT CLAVULANATE 02010593224 No Longer Active Connie Reyes APRN Active BACTRIM DS 800-160 MG TAB 1 tab by mouth twice daily TRIMETHOPRIM-SULFAMETHOXAZOLE 92871436577 No Longer Active Cayetano Skinner MD Active ZITHROMAX Z-MARTI 250 MG TABS 2 today, then 1 daily for 4 days AZITHROMYCIN 53738287656 No Longer Active Jensen Santiago MD Active CETIRIZINE HCL 10 MG TABS ONE DAILY CETIRIZINE HCL 60758620504 No Longer Active Jensen Santiago MD Active KLONOPIN 1 MG TAB 1/2 tab bid CLONAZEPAM 45996882457 No Longer Active Jensen Santiago MD Active ZOLPIDEM TARTRATE 10 MG TABS 1 q hs as needed for sleep ZOLPIDEM TARTRATE 10578249445 No Longer Active Jensen Santiago MD Active CELEXA 40 MG TABS Take one by mouth daily CITALOPRAM HYDROBROMIDE 91699942660 No Longer Active Jensen Santiago MD Active AMOXICILLIN 875 MG TABS 1 tab by mouth twice daily AMOXICILLIN 67854209444 No Longer Active Cayetano Skinner MD Active FLAGYL 500 MG TAB 1 tablet by mouth two times daily METRONIDAZOLE 11498342038 No Longer Active Cayetano Skinner MD Active FLAGYL 500 MG TAB 1 tablet by mouth two times daily METRONIDAZOLE 83665727642 No Longer Active Cayetano Skinner MD Active BUSPIRONE HCL 15 MG TABS 1/2 PO BID BUSPIRONE HCL 26446605023 No Longer Active Cayetano Skinner MD Active BUSPIRONE HCL 15 MG TABS 1/2 PO BID BUSPIRONE HCL 15 MG TABS 130342 BUSPIRONE HCL Inactive CELEXA 40 MG TABS Take one by mouth daily CELEXA 40 MG TABS 926825 CITALOPRAM HYDROBROMIDE Inactive ZOLPIDEM TARTRATE 10 MG TABS 1 q hs as needed for sleep ZOLPIDEM TARTRATE 10 MG TABS 983873 ZOLPIDEM TARTRATE Inactive KLONOPIN 1 MG TAB 1/2 tab bid KLONOPIN 1 MG TAB 995749 CLONAZEPAM Inactive CETIRIZINE HCL 10 MG TABS ONE DAILY CETIRIZINE HCL 10 MG TABS 0728121 CETIRIZINE HCL Inactive HYDROCORTISONE 2.5 % EXT CREA Apply three times a day to affected area HYDROCORTISONE 2.5 % EXT CREA 907264 HYDROCORTISONE Inactive SUBOXONE 8-2 MG SUBL 2 po qd SUBOXONE 8-2 MG SUBL BUPRENORPHINE HCL-NALOXONE HCL Inactive CIPRO 500 MG TAB 1 tablet by mouth twice daily CIPRO 500 MG TAB 843500 CIPROFLOXACIN HCL Inactive MACROBID CAPS 1 cap po qd. MACROBID CAPS NITROFURANTOIN MONOHYD MACRO CAPS Inactive FLAGYL 500 MG TAB 1 tablet by mouth two times daily FLAGYL 500 MG TAB 004058 METRONIDAZOLE Inactive FLAGYL 500 MG TAB 1 tablet by mouth two times daily FLAGYL 500 MG TAB 960307 METRONIDAZOLE Inactive AMOXICILLIN 875 MG TABS 1 tab by mouth twice daily AMOXICILLIN 875 MG TABS 421327 AMOXICILLIN Inactive ZITHROMAX Z-MARTI 250 MG TABS 2 today, then 1 daily for 4 days ZITHROMAX Z-MARTI 250 MG TABS 2378381 AZITHROMYCIN Inactive BACTRIM DS 800-160 MG TAB 1 tab by mouth twice daily BACTRIM DS 800-160 MG TAB 543436 TRIMETHOPRIM-SULFAMETHOXAZOLE Inactive AUGMENTIN 500-125 MG TAB Take 1 capsule by mouth three times a day X 10 days AUGMENTIN 500-125 MG TAB 684766 AMOXICILLIN-POT CLAVULANATE Inactive MACROBID 100 MG ORAL CAPS Take one by mouth daily MACROBID 100 MG ORAL CAPS 6454041 NITROFURANTOIN MONOHYD MACRO Inactive Immunizations Vaccine Administration Date Value Standard Description Seasonal influenza vaccine, injectable, containing preservative, for > 3 years old (Afluria, FluLaval, Fluzone, Fluvirin, Fluarix, Agriflu(>=18 yo)) Fluzone (>3 yrs.) [[id number]] Influenza, seasonal, injectable Vital Signs Date Name [...] Measured Encounters Code Encounter Date Provider Facility CPT-40196 Level 3 Est. Patient 16:55:26 CDT Cayetano Skinner MD [facility] CPT-70184 Level 2 Est. Patient 11:28:42 CDT Kimberly Brown MD [facility] CPT-95421 Level 3 Est. Patient 15:04:35 CDT Cayetano Skinner MD [facility] CPT-16459 Level 3 Est. Patient 15:07:05 GUEST HOUSE MANAGER Cayetano Skinner MD [facility] CPT-20058 Level 3 Est. Patient 09:56:19 CDT Connie Reyes APRN [facility] CPT-14380 Level 3 Est. Patient 12:31:18 GUEST HOUSE MANAGER Jensen Santiago MD [facility] CPT-94594 Level 3 Est. Patient 10:35:02 GUEST HOUSE MANAGER Cayetano Skinner MD [facility] CPT-30292 Level 3 Est. Patient 12:50:08 GUEST HOUSE MANAGER Cayetano Skinner MD [facility] Procedures Code Procedure Name Date Entry Date Standard Description CPT-16379 Bladder Scan 19:49:06 GUEST HOUSE MANAGER CPT-26677 Spec Collection and Handling Fee 11:57:40 CDT CPT-J1020 Depo Medrol 60 mg (Methyl Prednisolone Acetate) 12:03:49 CDT CPT-28744 Abx/Therapy Injection 12:03:48 CDT CPT-J1020 Depo Medrol 60 mg (Methyl Prednisolone Acetate) 09:56:19 CDT CPT-95693 Spec Collection and Handling Fee 12:10:42 CDT CPT-PV Prev. Care Visit 12:10:42 CDT CPT-37591 Administration single or combination vaccine inc oral 16:45:52 GUEST HOUSE MANAGER CPT-10634 Influenza split virus > age 3 16:45:52 GUEST HOUSE MANAGER CPT-44159 Spec Collection and Handling Fee 10:35:02 GUEST HOUSE MANAGER
--- OUTSIDE RECORDS SUMMARY | 2019-04-22 10:48 | XMS REPORT | Clinical Summary ---
Author Author Admin, [place] Organization [employer] Address Unknown Phone Unavailable Allergies, Adverse Reactions, [...] Name NDC Status Provider Patient Instruction ZOLOFT 100 MG ORAL TABS 1 po qd SERTRALINE HCL 57032476981 Active Cayetano Skinner MD Active MACROBID CAPS 1 cap po qd. NITROFURANTOIN MONOHYD MACRO CAPS 50065880640 Active Cayetano Skinner MD Active SUBOXONE 8-2 MG SL FILM 1 1/2 STRIPS QD BUPRENORPHINE HCL-NALOXONE HCL 96613008454 Active Cayetano Skinner MD Active CIPRO 500 MG TAB 1 tablet by mouth twice daily CIPROFLOXACIN HCL 77398482023 No Longer Active Cayetano Skinner MD Active MACROBID 100 MG ORAL CAPS Take one by mouth daily NITROFURANTOIN MONOHYD MACRO 59134570888 No Longer Active Kimberly Brown MD Active SUBOXONE 8-2 MG SUBL 2 po qd BUPRENORPHINE HCL-NALOXONE HCL 43211288380 No Longer Active Kimberly Brown MD Active HYDROCORTISONE 2.5 % EXT CREA Apply three times a day to affected area HYDROCORTISONE 38567442014 No Longer Active Kimberly Brown MD Active AUGMENTIN 500-125 MG TAB Take 1 capsule by mouth three times a day X 10 days AMOXICILLIN-POT CLAVULANATE 43177758953 No Longer Active Connie Reyes APRN Active BACTRIM DS 800-160 MG TAB 1 tab by mouth twice daily TRIMETHOPRIM-SULFAMETHOXAZOLE 72331716565 No Longer Active Cayetano Skinner MD Active ZITHROMAX Z-MARTI 250 MG TABS 2 today, then 1 daily for 4 days AZITHROMYCIN 65063961595 No Longer Active Jensen Santiago MD Active CETIRIZINE HCL 10 MG TABS ONE DAILY CETIRIZINE HCL 35002775588 No Longer Active Jensen Santiago MD Active KLONOPIN 1 MG TAB 1/2 tab bid CLONAZEPAM 43446035787 No Longer Active Jensen Santiago MD Active ZOLPIDEM TARTRATE 10 MG TABS 1 q hs as needed for sleep ZOLPIDEM TARTRATE 19701123730 No Longer Active Jensen Santiago MD Active CELEXA 40 MG TABS Take one by mouth daily CITALOPRAM HYDROBROMIDE 36805010684 No Longer Active Jensen Santiago MD Active AMOXICILLIN 875 MG TABS 1 tab by mouth twice daily AMOXICILLIN 75019827494 No Longer Active Cayetano Skinner MD Active FLAGYL 500 MG TAB 1 tablet by mouth two times daily METRONIDAZOLE 77851947791 No Longer Active Cayetano Skinner MD Active FLAGYL 500 MG TAB 1 tablet by mouth two times daily METRONIDAZOLE 43073434202 No Longer Active Cayetano Skinner MD Active BUSPIRONE HCL 15 MG TABS 1/2 PO BID BUSPIRONE HCL 69150746236 No Longer Active Cayetano Skinner MD Active BUSPIRONE HCL 15 MG TABS 1/2 PO BID BUSPIRONE HCL 15 MG TABS 593951 BUSPIRONE HCL Inactive CELEXA 40 MG TABS Take one by mouth daily CELEXA 40 MG TABS 662010 CITALOPRAM HYDROBROMIDE Inactive ZOLPIDEM TARTRATE 10 MG TABS 1 q hs as needed for sleep ZOLPIDEM TARTRATE 10 MG TABS 523173 ZOLPIDEM TARTRATE Inactive KLONOPIN 1 MG TAB 1/2 tab bid KLONOPIN 1 MG TAB 919210 CLONAZEPAM Inactive CETIRIZINE HCL 10 MG TABS ONE DAILY CETIRIZINE HCL 10 MG TABS 0707067 CETIRIZINE HCL Inactive HYDROCORTISONE 2.5 % EXT CREA Apply three times a day to affected area HYDROCORTISONE 2.5 % EXT CREA 093707 HYDROCORTISONE Inactive SUBOXONE 8-2 MG SUBL 2 po qd SUBOXONE 8-2 MG SUBL BUPRENORPHINE HCL-NALOXONE HCL Inactive CIPRO 500 MG TAB 1 tablet by mouth twice daily CIPRO 500 MG TAB 745695 CIPROFLOXACIN HCL Inactive FLAGYL 500 MG TAB 1 tablet by mouth two times daily FLAGYL 500 MG TAB 882839 METRONIDAZOLE Inactive FLAGYL 500 MG TAB 1 tablet by mouth two times daily FLAGYL 500 MG TAB 228694 METRONIDAZOLE Inactive AMOXICILLIN 875 MG TABS 1 tab by mouth twice daily AMOXICILLIN 875 MG TABS 139800 AMOXICILLIN Inactive ZITHROMAX Z-MARTI 250 MG TABS 2 today, then 1 daily for 4 days ZITHROMAX Z-MARTI 250 MG TABS 5300358 AZITHROMYCIN Inactive BACTRIM DS 800-160 MG TAB 1 tab by mouth twice daily BACTRIM DS 800-160 MG TAB 623762 TRIMETHOPRIM-SULFAMETHOXAZOLE Inactive AUGMENTIN 500-125 MG TAB Take 1 capsule by mouth three times a day X 10 days AUGMENTIN 500-125 MG TAB 670488 AMOXICILLIN-POT CLAVULANATE Inactive MACROBID 100 MG ORAL CAPS Take one by mouth daily MACROBID 100 MG ORAL CAPS 3776412 NITROFURANTOIN MONOHYD MACRO Inactive Immunizations Vaccine Administration Date Value Standard Description Seasonal influenza vaccine, injectable, containing preservative, for > 3 years old (Afluria, FluLaval, Fluzone, Fluvirin, Fluarix, Agriflu(>=18 yo)) Fluzone (>3 yrs.) [[id number]] Influenza, seasonal, injectable Vital Signs Date Name Value Unit Range Description blood pressure, diastolic - 8462-4 84 mm[Hg] BP montejo blood pressure, systolic - 8480-6 113 mm[Hg] BP sys height E&M - 8302-2 65 [in_us] Bdy height pulse rate E&M - 8867-4 73 /min Heart rate temperature E&M 98.1 [degF] Body temperature weight E&M - 3141-9 114.5 [lb_av] Weight Measured blood pressure, diastolic - 8462-4 78 mm[Hg] [...] Measured Encounters Code Encounter Date Provider Facility CPT-19338 Level 3 Est. Patient 15:04:35 CDT Cayetano Skinner MD [facility] CPT-74283 Level 3 Est. 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 CPT-56653 Level 3 Est. Patient 09:56:19 CDT Connie Reyes [facility] CPT-12291 Level 3 Est. Patient 12:31:18 BARRER AND TACKER Jensen Santiago MD [facility] CPT-30526 Level 3 Est. Patient 10:35:02 B[employer]ER AND TACKER Cayetano Skinner MD [facility] CPT-45281 Level 3 Est. Patient 12:50:08 BARRER AND TACKER Cayetano Skinner MD [facility] Procedures Code Procedure Name Date Entry Date Standard Description CPT-87891 Bladder Scan 19:49:06 B[employer]ER AND TACKER CPT-59631 Spec Collection and Handling Fee 11:57:40 CDT CPT-J1020 Depo Medrol 60 mg (Methyl Prednisolone Acetate) 12:03:49 CDT CPT-38388 Abx/Therapy Injection 12:03:48 CDT CPT-J1020 Depo Medrol 60 mg (Methyl Prednisolone Acetate) 09:56:19 CDT CPT-00845 Spec Collection and Handling Fee 12:10:42 CDT CPT-PV Prev. Care Visit 12:10:42 CDT CPT-71650 Administration single or combination vaccine inc oral 16:45:52 B[employer]ER [employer] TACKER CPT-25627 Influenza split virus > age 3 16:45:52 B[employer]ER [employer]ACKER CPT-18960 Spec Collection and Handling Fee 10:35:02 B[employer]ER [employer]ACKER
--- OUTSIDE RECORDS SUMMARY | 2019-04-22 10:48 | XMS REPORT | Clinical Summary ---
Author Author Admin, [employer] (Inspect Manager) Organization [facility] Address Unknown Phone Unavailable Allergies, Adverse [...] elsewhere classified Pruritus 698.9 Active Fadiaina Lucy BEARN Unspecified pruritic disorder Urticaria 708.9 Active Dorothy Ayala APRN Unspecified urticaria Hepatitis C 070.70 Active Dorothy Ayala APRN Unspecified viral hepatitis C without hepatic coma CERVICAL CANCER ICD-V10.41 Inactive Cayetano Skinner MD [...] Pre-employment exam ICD-V70.5 Inactive Cayetano Skinner MD DEPRESSION ICD-311 Inactive Cayetano Skinner MD Medication List Medication Instructions Start Date Stop Date Generic Name NDC Status Provider Patient Instruction ZANTAC 150 MG TAB 1 tab po q am RANITIDINE HCL 82989831495 Active Jillina Frazell LAMP WIRER Active ZYRTEC ALLERGY 10 MG CAPS 1 po am CETIRIZINE HCL 66173221593 Active Jillina Frazell LAMP WIRER Active PREDNISONE 20 MG TAB 2 tabs daily for 4 days, 1 tab daily for 4 days, /2 tab daily for 4 days PREDNISONE 37552679911 Active Dorothy Scotttamara [place] Active VENLAFAXINE HCL 75 MG ORAL TABS 1.5 po BID VENLAFAXINE HCL 98692315523 Active Cayetano Skinner MD Active TRAZODONE HCL 100 MG ORAL TABS 0.5 to 1 po qHS PRN Insomnia TRAZODONE HCL 09821584143 Active Cayetano Skinner MD Active SERTRALINE HCL 100 MG ORAL TABS 2 po qd SERTRALINE HCL 67816257751 No Longer Active Cayetano Skinner MD Active MACROBID CAPS 1 cap po qd. NITROFURANTOIN MONOHYD MACRO CAPS 56381837893 No Longer Active Kimberly Brown MD Active SUBOXONE 8-2 MG SL FILM 1 1/2 STRIPS QD BUPRENORPHINE HCL-NALOXONE HCL 24868480392 Active Cayetano Skinner MD Active CIPRO 500 MG TAB 1 tablet by mouth twice daily CIPROFLOXACIN HCL 30302869770 No Longer Active Cayetano Skinner MD Active MACROBID 100 MG ORAL CAPS Take one by mouth daily NITROFURANTOIN MONOHYD MACRO 02900778868 No Longer Active Kimbelry Brown MD Active SUBOXONE 8-2 MG SUBL 2 po qd BUPRENORPHINE HCL-NALOXONE HCL 04544086745 No Longer Active Kimberly Brown MD Active HYDROCORTISONE 2.5 % EXT CREA Apply three times a day to affected area HYDROCORTISONE 39323811416 No Longer Active Kimberly Brown MD Active AUGMENTIN 500-125 MG TAB Take 1 capsule by mouth three times a day X 10 days AMOXICILLIN-POT CLAVULANATE 00477296195 No Longer Active Connie Reyes APRN Active BACTRIM DS 800-160 MG TAB 1 tab by mouth twice daily TRIMETHOPRIM-SULFAMETHOXAZOLE 94489134595 No Longer Active Cayetano Skinner MD Active ZITHROMAX Z-MARTI 250 MG TABS 2 today, then 1 daily for 4 days AZITHROMYCIN 32490568398 No Longer Active Jensen Santiago MD Active CETIRIZINE HCL 10 MG TABS ONE DAILY CETIRIZINE HCL 53980239485 No Longer Active Jensen Santiago MD Active KLONOPIN 1 MG TAB 1/2 tab bid CLONAZEPAM 12538980620 No Longer Active Jensen Santiago MD Active ZOLPIDEM TARTRATE 10 MG TABS 1 q hs as needed for sleep ZOLPIDEM TARTRATE 18120426897 No Longer Active Jensen Santiago MD Active CELEXA 40 MG TABS Take one by mouth daily CITALOPRAM HYDROBROMIDE 65570535023 No Longer Active Jensen Santiago MD Active AMOXICILLIN 875 MG TABS 1 tab by mouth twice daily AMOXICILLIN 50387923103 No Longer Active Cayetano Skinner MD Active FLAGYL 500 MG TAB 1 tablet by mouth two times daily METRONIDAZOLE 74651231847 No Longer Active Cayetano Skinner MD Active FLAGYL 500 MG TAB 1 tablet by mouth two times daily METRONIDAZOLE 97722805578 No Longer Active Cayetano Skinner MD Active BUSPIRONE HCL 15 MG TABS 1/2 PO BID BUSPIRONE HCL 01519543063 No Longer Active Cayetano Skinner MD Active BUSPIRONE HCL 15 MG TABS 1/2 PO BID BUSPIRONE HCL 15 MG TABS 653314 BUSPIRONE HCL Inactive CELEXA 40 MG TABS Take one by mouth daily CELEXA 40 MG TABS 648941 CITALOPRAM HYDROBROMIDE Inactive ZOLPIDEM TARTRATE 10 MG TABS 1 q hs as needed for sleep ZOLPIDEM TARTRATE 10 MG TABS 507702 ZOLPIDEM TARTRATE Inactive KLONOPIN 1 MG TAB 1/2 tab bid KLONOPIN 1 MG TAB 651734 CLONAZEPAM Inactive CETIRIZINE HCL 10 MG TABS ONE DAILY CETIRIZINE HCL 10 MG TABS 4891802 CETIRIZINE HCL Inactive HYDROCORTISONE 2.5 % EXT CREA Apply three times a day to affected area HYDROCORTISONE 2.5 % EXT CREA 431046 HYDROCORTISONE Inactive SUBOXONE 8-2 MG SUBL 2 po qd SUBOXONE 8-2 MG SUBL BUPRENORPHINE HCL-NALOXONE HCL Inactive CIPRO 500 MG TAB 1 tablet by mouth twice daily CIPRO 500 MG TAB 251006 CIPROFLOXACIN HCL Inactive MACROBID CAPS 1 cap po qd. MACROBID CAPS NITROFURANTOIN MONOHYD MACRO CAPS Inactive FLAGYL 500 MG TAB 1 tablet by mouth two times daily FLAGYL 500 MG TAB 423271 METRONIDAZOLE Inactive FLAGYL 500 MG TAB 1 tablet by mouth two times daily FLAGYL 500 MG TAB 274441 METRONIDAZOLE Inactive AMOXICILLIN 875 MG TABS 1 tab by mouth twice daily AMOXICILLIN 875 MG TABS 564124 AMOXICILLIN Inactive ZITHROMAX Z-MARTI 250 MG TABS 2 today, then 1 daily for 4 days ZITHROMAX Z-MARTI 250 MG TABS 7760792 AZITHROMYCIN Inactive BACTRIM DS 800-160 MG TAB 1 tab by mouth twice daily BACTRIM DS 800-160 MG TAB 151612 TRIMETHOPRIM-SULFAMETHOXAZOLE Inactive AUGMENTIN 500-125 MG TAB Take 1 capsule by mouth three times a day X 10 days AUGMENTIN 500-125 MG TAB 823446 AMOXICILLIN-POT CLAVULANATE Inactive MACROBID 100 MG ORAL CAPS Take one by mouth daily MACROBID 100 MG ORAL CAPS 1693583 NITROFURANTOIN MONOHYD MACRO Inactive Immunizations Vaccine Administration Date Value Standard Description Seasonal influenza vaccine, injectable, containing preservative, for > 3 years old (Afluria, FluLaval, Fluzone, Fluvirin, Fluarix, Agriflu(>=18 yo)) Fluzone (>3 yrs.) [[id number]] Influenza, seasonal, injectable Vital Signs Date Name [...] Range Description Lab Report: C-REACTIVE PROTEIN, HIV-1/2 Agn/[place]/36997, Drug Abuse Pnl 10 ... - Chemistry rapid plasma reagin antibody titer NON-REACTIVE NON-REACTIVE Lab Report: C-REACTIVE PROTEIN, HIV-1/2 Agn/[place]/31641, Drug Abuse Pnl 10 ... - Lab chlamydia DNA probe NOT DETECTED NOT DETECTED Lab Report: C-REACTIVE PROTEIN, HIV-1/2 Agn/[place]/92064, Drug Abuse Pnl 10 ... - Microbiology Neisseria gonorrhoeae DNA probe NOT DETECTED NOT DETECTED Lab Report: CBC W/DIFF, Comp. Metabolic Panel, Free Thyroxine (L), Thyro ... - Chemistry sodium, serum 138 mmol/L 589-265 2390/09/12 carbon dioxide, venous blood 29.9 mmol/L 21.0-32.0 [...] Negative Negative glucose, urine, semiquantitative Negative Negative appearance, urine Clear Clear specific gravity, urine 1.010 1.000-1.030 pH, urine, semiquantitative 5.5 5.0-8.5 urine color Yellow Colorless;Lightyellow;Straw;Yellow ketones, urine, by test strip Negative Negative bilirubin, urine Negative Negative Encounters Code Encounter Date Provider Facility CPT-86378 Level 4 Est. Patient 22:21:42 CDT Dorothy Tylertamara [facility] [place] CPT-32832 Level 4 Est. Patient 21:18:20 CDT [place]ers[place] Tylertamara [facility] [place] CPT-18357 Level 3 Est. Patient 10:06:58 CDT Dorothy Ayala [facility] [place] CPT-85974 Level 3 Est. Patient 09:36:26 CDT Dorothy Ayala [facility] [place] CPT-59404 Level 3 Est. Patient 16:55:26 CDT Cayetano Skinner MD [facility] CPT-66356 Level 2 Est. Patient 11:28:42 CDT Kimberly Brown MD [facility] CPT-11397 Level 3 Est. Patient 15:04:35 CDT Cayetano Skinner MD [facility] CPT-75117 Level 3 Est. 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 Patient 09:56:19 CDT Connie Reyes [facility] [place] CPT-44527 Level 3 Est. Patient 12:31:18 REGIONAL OWNER OPERATOR TRUCK DRIVER Jensen Santiago MD [facility] CPT-02012 Level 3 Est. 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 Care Visit 12:10:42 CDT CPT-02265 Administration single or combination vaccine inc oral 16:45:52 REGIONAL OWNER OPERATOR TRUCK DRIVER CPT-22026 Influenza split virus > age 3 16:45:52 REGIONAL OWNER OPERATOR TRUCK DRIVER CPT-38519 Spec Collection and Handling Fee 10:35:02 REGIONAL OWNER OPERATOR TRUCK DRIVER
--- OUTSIDE RECORDS SUMMARY | 2019-04-22 10:49 | XMS REPORT | Clinical Summary ---
Author Author Admin, [employer] Organization [facility] Address Unknown Phone Unavailable Allergies, Adverse Reactions, [...] elsewhere classified Pruritus 698.9 Active Fadiaina Derrelll PHOTOGRAPHY MANAGER Unspecified pruritic disorder Urticaria 708.9 Active [...] 1 tab po q am RANITIDINE HCL 89342439665 Active Jillina Frazell PHOTOGRAPHY MANAGER Active ZYRTEC ALLERGY 10 MG CAPS 1 po am CETIRIZINE HCL 44671652903 Active Jillina Frazell PHOTOGRAPHY MANAGER Active PREDNISONE 20 MG TAB 2 tabs daily for 4 days, 1 tab daily for 4 days, /2 tab daily for 4 days PREDNISONE 63539078210 Active Dorothy Scotttamara [place] Active VENLAFAXINE HCL 75 MG ORAL TABS 1.5 po BID VENLAFAXINE HCL 00813630521 Active Cayetano Skinner MD Active TRAZODONE HCL 100 MG ORAL TABS 0.5 to 1 po qHS PRN Insomnia TRAZODONE HCL 75620174082 Active Cayetano Skinner MD Active SERTRALINE HCL 100 MG ORAL TABS 2 po qd SERTRALINE HCL 61986909473 No Longer Active Cayetano Skinner MD Active MACROBID CAPS 1 cap po qd. NITROFURANTOIN MONOHYD MACRO CAPS 65071843899 No Longer Active Kimberly Brown MD Active SUBOXONE 8-2 MG SL FILM 1 1/2 STRIPS QD BUPRENORPHINE HCL-NALOXONE HCL 14935517828 Active Cayetano Skinner MD Active CIPRO 500 MG TAB 1 tablet by mouth twice daily CIPROFLOXACIN HCL 30666041378 No Longer Active Cayetano Skinner MD Active MACROBID 100 MG ORAL CAPS Take one by mouth daily NITROFURANTOIN MONOHYD MACRO 88905433145 No Longer Active Kimberly Brown MD Active SUBOXONE 8-2 MG SUBL 2 po qd BUPRENORPHINE HCL-NALOXONE HCL 68236639891 No Longer Active Kimberly Brown MD Active HYDROCORTISONE 2.5 % EXT CREA Apply three times a day to affected area HYDROCORTISONE 10107853330 No Longer Active Kimberly Brown MD Active AUGMENTIN 500-125 MG TAB Take 1 capsule by mouth three times a day X 10 days AMOXICILLIN-POT CLAVULANATE 10589433976 No Longer Active Connie Reyes APRN Active BACTRIM DS 800-160 MG TAB 1 tab by mouth twice daily TRIMETHOPRIM-SULFAMETHOXAZOLE 38636179536 No Longer Active Cayetano Skinner MD Active ZITHROMAX Z-MARTI 250 MG TABS 2 today, then 1 daily for 4 days AZITHROMYCIN 51819531021 No Longer Active Jensen Santiago MD Active CETIRIZINE HCL 10 MG TABS ONE DAILY CETIRIZINE HCL 37423329959 No Longer Active Jensen Santiago MD Active KLONOPIN 1 MG TAB 1/2 tab bid CLONAZEPAM 26076744979 No Longer Active Jensen Santiago MD Active ZOLPIDEM TARTRATE 10 MG TABS 1 q hs as needed for sleep ZOLPIDEM TARTRATE 20050658267 No Longer Active Jensen Santiago MD Active CELEXA 40 MG TABS Take one by mouth daily CITALOPRAM HYDROBROMIDE 17724074505 No Longer Active Jensen Santiago MD Active AMOXICILLIN 875 MG TABS 1 tab by mouth twice daily AMOXICILLIN 96608234332 No Longer Active Cayetano Skinner MD Active FLAGYL 500 MG TAB 1 tablet by mouth two times daily METRONIDAZOLE 65914812864 No Longer Active Cayetano Skinner MD Active FLAGYL 500 MG TAB 1 tablet by mouth two times daily METRONIDAZOLE 61422452620 No Longer Active Cayetano Skinner MD Active BUSPIRONE HCL 15 MG TABS 1/2 PO BID BUSPIRONE HCL 98081831368 No Longer Active Cayetano Skinner MD Active BUSPIRONE HCL 15 MG TABS 1/2 PO BID BUSPIRONE HCL 15 MG TABS 870880 BUSPIRONE HCL Inactive CELEXA 40 MG TABS Take one by mouth daily CELEXA 40 MG TABS 066326 CITALOPRAM HYDROBROMIDE Inactive ZOLPIDEM TARTRATE 10 MG TABS 1 q hs as needed for sleep ZOLPIDEM TARTRATE 10 MG TABS 062975 ZOLPIDEM TARTRATE Inactive KLONOPIN 1 MG TAB 1/2 tab bid KLONOPIN 1 MG TAB 476748 CLONAZEPAM Inactive CETIRIZINE HCL 10 MG TABS ONE DAILY CETIRIZINE HCL 10 MG TABS 8113255 CETIRIZINE HCL Inactive HYDROCORTISONE 2.5 % EXT CREA Apply three times a day to affected area HYDROCORTISONE 2.5 % EXT CREA 123155 HYDROCORTISONE Inactive SUBOXONE 8-2 MG SUBL 2 po qd SUBOXONE 8-2 MG SUBL BUPRENORPHINE HCL-NALOXONE HCL Inactive CIPRO 500 MG TAB 1 tablet by mouth twice daily CIPRO 500 MG TAB 854331 CIPROFLOXACIN HCL Inactive MACROBID CAPS 1 cap po qd. MACROBID CAPS NITROFURANTOIN MONOHYD MACRO CAPS Inactive FLAGYL 500 MG TAB 1 tablet by mouth two times daily FLAGYL 500 MG TAB 171143 METRONIDAZOLE Inactive FLAGYL 500 MG TAB 1 tablet by mouth two times daily FLAGYL 500 MG TAB 250667 METRONIDAZOLE Inactive AMOXICILLIN 875 MG TABS 1 tab by mouth twice daily AMOXICILLIN 875 MG TABS 376630 AMOXICILLIN Inactive ZITHROMAX Z-MARTI 250 MG TABS 2 today, then 1 daily for 4 days ZITHROMAX Z-MARTI 250 MG TABS 9376408 AZITHROMYCIN Inactive BACTRIM DS 800-160 MG TAB 1 tab by mouth twice daily BACTRIM DS 800-160 MG TAB 511445 TRIMETHOPRIM-SULFAMETHOXAZOLE Inactive AUGMENTIN 500-125 MG TAB Take 1 capsule by mouth three times a day X 10 days AUGMENTIN 500-125 MG TAB 688670 AMOXICILLIN-POT CLAVULANATE Inactive MACROBID 100 MG ORAL CAPS Take one by mouth daily MACROBID 100 MG ORAL CAPS 9496563 NITROFURANTOIN MONOHYD MACRO Inactive Immunizations Vaccine Administration Date Value Standard Description Seasonal influenza vaccine, injectable, containing preservative, for > 3 years old (Afluria, FluLaval, Fluzone, Fluvirin, Fluarix, Agriflu(>=18 yo)) Fluzone (>3 yrs.) [[id number]] Influenza, seasonal, injectable Vital Signs Date Name [...] Range Description Lab Report: C-REACTIVE PROTEIN, HIV-1/2 Agn/[place]/97225, Drug Abuse Pnl 10 ... - Chemistry rapid plasma reagin antibody titer NON-REACTIVE NON-REACTIVE Lab Report: C-REACTIVE PROTEIN, HIV-1/2 Agn/[place]/44114, Drug Abuse Pnl 10 ... - Lab chlamydia DNA probe NOT DETECTED NOT DETECTED Lab Report: C-REACTIVE PROTEIN, HIV-1/2 Agn/[place]/58836, Drug Abuse Pnl 10 ... - Microbiology Neisseria gonorrhoeae DNA probe NOT DETECTED NOT DETECTED Lab Report: CBC W/DIFF, Comp. Metabolic Panel, Free Thyroxine (L), Thyro ... - Chemistry sodium, serum 138 mmol/L 786-949 2674/09/12 carbon dioxide, venous blood 29.9 mmol/L 21.0-32.0 [...] 5.0-8.5 Encounters Code Encounter Date Provider Facility CPT-67744 Level 4 Est. Patient 22:21:42 CDT Dorothy Ayala [facility] CPT-15069 Level 4 Est. Patient 21:18:20 CDT Dorothy Ayala [facility] CPT-71962 Level 3 Est. Patient 10:06:58 CDT Dorothy Dovesegun [facility] CPT-07741 Level 3 Est. Patient 09:36:26 CDT Dorothy Ayala [facility] CPT-85995 Level 3 Est. Patient 16:55:26 CDT Cayetano Skinner MD [facility] CPT-57859 Level 2 Est. Patient 11:28:42 CDT Kimberly Brown MD [facility] CPT-03527 Level 3 Est. Patient 15:04:35 CDT Cayetano Skinner MD [facility] CPT-79078 Level 3 Est. 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 Patient 09:56:19 CDT Connie Reyes [facility] CPT-46874 Level 3 Est. Patient 12:31:18 WINDOWS TECHNICAL SPECIALIST Jensen Santiago MD [facility] CPT-87038 Level 3 Est. Patient 10:35:02 WINDOWS TECHNICAL SPECIALIST Cayetano Skinner MD [facility] CPT-92109 Level 3 Est. Patient 12:50:08 WINDOWS TECHNICAL SPECIALIST Cayetano Skinner MD [facility] Procedures Code Procedure Name Date Entry Date Standard Description CPT-26785 Venipuncture Draw Fee 10:10:37 CDT CPT-49256 [facility] - [facility] 10:06:58 CDT CPT-60399 Bladder Scan 19:49:06 WINDOWS TECHNICAL SPECIALIST CPT-63053 Spec Collection and Handling Fee 11:57:40 CDT CPT-J1020 Depo Medrol 60 mg (Methyl Prednisolone Acetate) 12:03:49 CDT CPT-40351 Abx/Therapy Injection 12:03:48 CDT CPT-J1020 Depo Medrol 60 mg (Methyl Prednisolone Acetate) 09:56:19 CDT CPT-67708 Spec Collection and Handling Fee 12:10:42 CDT CPT-PV Prev. Care Visit 12:10:42 CDT CPT-97097 Administration single or combination vaccine inc oral 16:45:52 WINDOWS TECHNICAL SPECIALIST CPT-09902 Influenza split virus > age 3 16:45:52 WINDOWS TECHNICAL SPECIALIST CPT-45549 Spec Collection and Handling Fee 10:35:02 WINDOWS TECHNICAL SPECIALIST
--- OUTSIDE RECORDS SUMMARY | 2019-04-22 10:49 | XMS REPORT | Clinical Summary ---
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 Unspecified pruritic disorder Urticaria 708.9 Active Dorothy Ayala [employer]ATING SUPERVISOR Unspecified urticaria Hepatitis C 070.70 Active Dorothy [...] 1 po qHS PRN Insomnia TRAZODONE HCL 21259274749 Active Joanne Molina RMA Active LUNESTA 1 MG ORAL TABS 1 po qHS PRN Insomnia ESZOPICLONE 30602259185 No Longer Active Joanne Molina RMA Active ZANTAC 150 MG TAB 1 tab po q am RANITIDINE HCL 92004995309 Active Dorothy Ayala [employer]APER COATING SUPERVISOR Active ZYRTEC ALLERGY 10 MG CAPS 1 po am CETIRIZINE HCL 72135194339 Active Casperllvishal Scottmichellel [employer]ER [employer]ATING SUPERVISOR Active PREDNISONE 20 MG TAB 2 tabs daily for 4 days, 1 tab daily for 4 days, 1/2 tab daily for 4 days PREDNISONE 21679003287 Active Caspersb Ayala APRN Active VENLAFAXINE HCL 75 MG ORAL TABS 1.5 po BID VENLAFAXINE HCL 85397546089 Active Cayetano Skinner MD Active TRAZODONE HCL 100 MG ORAL TABS 0.5 to 1 po qHS PRN Insomnia TRAZODONE HCL 70491368484 No Longer Active Cayetano Skinner MD Active SERTRALINE HCL 100 MG ORAL TABS 2 po qd SERTRALINE HCL 56171536303 No Longer Active Cayetano Skinner MD Active MACROBID CAPS 1 cap po qd. NITROFURANTOIN MONOHYD MACRO CAPS 89080574092 No Longer Active Kimberly Brown MD Active SUBOXONE 8-2 MG SL FILM 1 1/2 STRIPS QD BUPRENORPHINE HCL-NALOXONE HCL 09112642366 Active Cayetano Skinner MD Active CIPRO 500 MG TAB 1 tablet by mouth twice daily CIPROFLOXACIN HCL 15116489733 No Longer Active Cayetano Skinner MD Active MACROBID 100 MG ORAL CAPS Take one by mouth daily NITROFURANTOIN MONOHYD MACRO 03737425727 No Longer Active Kimberly Brown MD Active SUBOXONE 8-2 MG SUBL 2 po qd BUPRENORPHINE HCL-NALOXONE HCL 02702869930 No Longer Active Kimberly Brown MD Active HYDROCORTISONE 2.5 % EXT CREA Apply three times a day to affected area HYDROCORTISONE 92597043938 No Longer Active Kimberly Brown MD Active AUGMENTIN 500-125 MG TAB Take 1 capsule by mouth three times a day X 10 days AMOXICILLIN-POT CLAVULANATE 66605152759 No Longer Active Connie Reyes APRN Active BACTRIM DS 800-160 MG TAB 1 tab by mouth twice daily TRIMETHOPRIM-SULFAMETHOXAZOLE 86542243071 No Longer Active Cayetano Skinner MD Active ZITHROMAX Z-MARTI 250 MG TABS 2 today, then 1 daily for 4 days AZITHROMYCIN 17347748880 No Longer Active Jensen Santiago MD Active CETIRIZINE HCL 10 MG TABS ONE DAILY CETIRIZINE HCL 72575739907 No Longer Active Jensen Santiago MD Active KLONOPIN 1 MG TAB 1/2 tab bid CLONAZEPAM 21349363842 No Longer Active Jensen Santiago MD Active ZOLPIDEM TARTRATE 10 MG TABS 1 q hs as needed for sleep ZOLPIDEM TARTRATE 66803360351 No Longer Active Jensen Santiago MD Active CELEXA 40 MG TABS Take one by mouth daily CITALOPRAM HYDROBROMIDE 45573281413 No Longer Active Jensen Santiago MD Active AMOXICILLIN 875 MG TABS 1 tab by mouth twice daily AMOXICILLIN 99691526642 No Longer Active Cayetano Skinner MD Active FLAGYL 500 MG TAB 1 tablet by mouth two times daily METRONIDAZOLE 42711007101 No Longer Active Cayetano Skinner MD Active FLAGYL 500 MG TAB 1 tablet by mouth two times daily METRONIDAZOLE 15895708049 No Longer Active Cayetano Skinner MD Active BUSPIRONE HCL 15 MG TABS 1/2 PO BID BUSPIRONE HCL 10061589942 No Longer Active Cayetano Skinner MD Active BUSPIRONE HCL 15 MG TABS 1/2 PO BID BUSPIRONE HCL 15 MG TABS 198876 BUSPIRONE HCL Inactive CELEXA 40 MG TABS Take one by mouth daily CELEXA 40 MG TABS 765251 CITALOPRAM HYDROBROMIDE Inactive ZOLPIDEM TARTRATE 10 MG TABS 1 q hs as needed for sleep ZOLPIDEM TARTRATE 10 MG TABS 519327 ZOLPIDEM TARTRATE Inactive KLONOPIN 1 MG TAB 1/2 tab bid KLONOPIN 1 MG TAB 133394 CLONAZEPAM Inactive CETIRIZINE HCL 10 MG TABS ONE DAILY CETIRIZINE HCL 10 MG TABS 5959833 CETIRIZINE HCL Inactive HYDROCORTISONE 2.5 % EXT CREA Apply three times a day to affected area HYDROCORTISONE 2.5 % EXT CREA 587941 HYDROCORTISONE Inactive SUBOXONE 8-2 MG SUBL 2 po qd SUBOXONE 8-2 MG SUBL BUPRENORPHINE HCL-NALOXONE HCL Inactive CIPRO 500 MG TAB 1 tablet by mouth twice daily CIPRO 500 MG TAB 455769 CIPROFLOXACIN HCL Inactive MACROBID CAPS 1 cap po qd. MACROBID CAPS NITROFURANTOIN MONOHYD MACRO CAPS Inactive LUNESTA 1 MG ORAL TABS 1 po qHS PRN Insomnia LUNESTA 1 MG ORAL TABS 907979 ESZOPICLONE Inactive FLAGYL 500 MG TAB 1 tablet by mouth two times daily FLAGYL 500 MG TAB 551423 METRONIDAZOLE Inactive FLAGYL 500 MG TAB 1 tablet by mouth two times daily FLAGYL 500 MG TAB 644236 METRONIDAZOLE Inactive AMOXICILLIN 875 MG TABS 1 tab by mouth twice daily AMOXICILLIN 875 MG TABS 128648 AMOXICILLIN Inactive ZITHROMAX Z-MARTI 250 MG TABS 2 today, then 1 daily for 4 days ZITHROMAX Z-MARTI 250 MG TABS 717791 AZITHROMYCIN Inactive BACTRIM DS 800-160 MG TAB 1 tab by mouth twice daily BACTRIM DS 800-160 MG TAB 299939 TRIMETHOPRIM-SULFAMETHOXAZOLE Inactive AUGMENTIN 500-125 MG TAB Take 1 capsule by mouth three times a day X 10 days AUGMENTIN 500-125 MG TAB 438534 AMOXICILLIN-POT CLAVULANATE Inactive MACROBID 100 MG ORAL CAPS Take one by mouth daily MACROBID 100 MG ORAL CAPS 5525746 NITROFURANTOIN MONOHYD MACRO Inactive Immunizations Vaccine Administration Date Value Standard Description Seasonal influenza vaccine, injectable, containing preservative, for > 3 years old (Afluria, FluLaval, Fluzone, Fluvirin, Fluarix, Agriflu(>=18 yo)) Fluzone (>3 yrs.) [[id number]] Influenza, seasonal, injectable Vital Signs Date Name [...] Range Description Lab Report: C-REACTIVE PROTEIN, HIV-1/2 Agn/[place]/78949, Drug Abuse Pnl 10 ... - Chemistry rapid plasma reagin antibody titer NON-REACTIVE NON-REACTIVE Lab Report: C-REACTIVE PROTEIN, HIV-1/2 Agn/[place]/63490, Drug Abuse Pnl 10 ... - Lab chlamydia DNA probe NOT DETECTED NOT DETECTED Lab Report: C-REACTIVE PROTEIN, HIV-1/2 Agn/[place]/63335, Drug Abuse Pnl 10 ... - Microbiology Neisseria gonorrhoeae DNA probe NOT DETECTED NOT DETECTED Lab Report: CBC W/DIFF, Comp. Metabolic Panel, Free Thyroxine (L), Thyro ... - Chemistry sodium, serum 138 mmol/L 952-205 1631/09/12 carbon dioxide, venous blood 29.9 mmol/L 21.0-32.0 [...] 5.0-8.5 Encounters Code Encounter Date Provider Facility CPT-76132 Level 4 Est. Patient 22:21:42 CDT Dorothy Ayala [facility] CPT-21629 Level 4 Est. Patient 21:18:20 CDT Dorothy Ayala [facility] CPT-05231 Level 3 Est. Patient 10:06:58 CDT Dorothy Ayala [facility] CPT-87934 Level 3 Est. Patient 09:36:26 CDT Dorothy Ayala [facility] CPT-92056 Level 3 Est. Patient 16:55:26 CDT Cayetano Skinner MD [facility] CPT-06594 Level 2 Est. Patient 11:28:42 CDT Kimberly Brown MD [facility] CPT-20994 Level 3 Est. Patient 15:04:35 CDT Cayetano Skinner MD [facility] CPT-59102 Level 3 Est. Patient 15:07:05 RN CIRCULATING Cayetano Skinner MD [facility] CPT-17743 Level 3 Est. Patient 09:56:19 CDT Connie Lockecarmen HAMILTON [facility] CPT-31956 Level 3 Est. Patient 12:31:18 RN CIRCULATING Jensen Santiago MD [facility] CPT-29254 Level 3 Est. Patient 10:35:02 RN CIRCULATING Cayetano Skinner MD [facility] CPT-49266 Level 3 Est. Patient 12:50:08 RN CIRCULATING Cayetano Skinner MD [facility] Procedures Code Procedure Name Date Entry Date Standard Description CPT-26660 Venipuncture Draw Fee 10:10:37 CDT CPT-24807 AFP - [facility] 10:06:58 CDT CPT-58201 Bladder Scan 19:49:06 RN CIRCULATING CPT-10313 Spec Collection and Handling Fee 11:57:40 CDT CPT-J1020 Depo Medrol 60 mg (Methyl Prednisolone Acetate) 12:03:49 CDT CPT-24252 Abx/Therapy Injection 12:03:48 CDT CPT-J1020 Depo Medrol 60 mg (Methyl Prednisolone Acetate) 09:56:19 CDT CPT-18305 Spec Collection and Handling Fee 12:10:42 CDT CPT-PV Prev. Care Visit 12:10:42 CDT CPT-00239 Administration single or combination vaccine inc oral 16:45:52 RN CIRCULATING CPT-32965 Influenza split virus > age 3 16:45:52 RN CIRCULATING CPT-11812 Spec Collection and Handling Fee 10:35:02 RN CIRCULATING
--- OUTSIDE RECORDS SUMMARY | 2019-04-22 10:50 | XMS REPORT | Clinical Summary ---
Author Author Admin, [place] Organization [facility] Address Unknown Phone Unavailable Allergies, Adverse Reactions, [...] Active Connie Reyes APRN Acute sinusitis, unspecified Pre-employment exam V70.5 Active Jacqueline Jenkins LRT Health examination of defined subpopulations CERVICAL CANCER ICD-V10.41 Inactive Cayetano Skinner MD [...] a day X 10 days AMOXICILLIN-POT CLAVULANATE 06432830471 No Longer Active Connie Reyes APRN Active BACTRIM DS 800-160 MG TAB 1 tab by mouth twice daily TRIMETHOPRIM-SULFAMETHOXAZOLE 76697160178 No Longer Active Cayetano Skinner MD Active HYDROCORTISONE 2.5 % EXT CREA Apply three times a day to affected area HYDROCORTISONE 83634284933 Active Melinda Baxter APRN Active ZITHROMAX Z-MARTI 250 MG TABS 2 today, then 1 daily for 4 days AZITHROMYCIN 38972756459 No Longer Active Jensen Santiago MD Active SUBOXONE 8-2 MG SUBL 2 po qd BUPRENORPHINE HCL-NALOXONE HCL 87120006429 Active Jensen Santiago MD Active CETIRIZINE HCL 10 MG TABS ONE DAILY CETIRIZINE HCL 67841475758 No Longer Active Jensen Santiago MD Active KLONOPIN 1 MG TAB 1/2 tab bid CLONAZEPAM 85194453063 No Longer Active Jensen Santiago MD Active ZOLPIDEM TARTRATE 10 MG TABS 1 q hs as needed for sleep ZOLPIDEM TARTRATE 63139511981 No Longer Active Jensen Santiago MD Active CELEXA 40 MG TABS Take one by mouth daily CITALOPRAM HYDROBROMIDE 99268357776 No Longer Active Jensen Santiago MD Active AMOXICILLIN 875 MG TABS 1 tab by mouth twice daily AMOXICILLIN 75298351745 No Longer Active Cayetano Skinner MD Active FLAGYL 500 MG TAB 1 tablet by mouth two times daily METRONIDAZOLE 77466684045 No Longer Active Cayetano Skinner MD Active FLAGYL 500 MG TAB 1 tablet by mouth two times daily METRONIDAZOLE 80843373019 No Longer Active Cayetano Skinner MD Active BUSPIRONE HCL 15 MG TABS 1/2 PO BID BUSPIRONE HCL 42867171363 No Longer Active Cayetano Skinner MD Active BUSPIRONE HCL 15 MG TABS 1/2 PO BID BUSPIRONE HCL 15 MG TABS 275332 BUSPIRONE HCL Inactive CELEXA 40 MG TABS Take one by mouth daily CELEXA 40 MG TABS 720795 CITALOPRAM HYDROBROMIDE Inactive ZOLPIDEM TARTRATE 10 MG TABS 1 q hs as needed for sleep ZOLPIDEM TARTRATE 10 MG TABS 904872 ZOLPIDEM TARTRATE Inactive KLONOPIN 1 MG TAB 1/2 tab bid KLONOPIN 1 MG TAB 114779 CLONAZEPAM Inactive CETIRIZINE HCL 10 MG TABS ONE DAILY CETIRIZINE HCL 10 MG TABS 7953815 CETIRIZINE HCL Inactive FLAGYL 500 MG TAB 1 tablet by mouth two times daily FLAGYL 500 MG TAB 369341 METRONIDAZOLE Inactive FLAGYL 500 MG TAB 1 tablet by mouth two times daily FLAGYL 500 MG TAB 441355 METRONIDAZOLE Inactive AMOXICILLIN 875 MG TABS 1 tab by mouth twice daily AMOXICILLIN 875 MG TABS 178318 AMOXICILLIN Inactive ZITHROMAX Z-MARTI 250 MG TABS 2 today, then 1 daily for 4 days ZITHROMAX Z-MARTI 250 MG TABS 7561305 AZITHROMYCIN Inactive BACTRIM DS 800-160 MG TAB 1 tab by mouth twice daily BACTRIM DS 800-160 MG TAB 073559 TRIMETHOPRIM-SULFAMETHOXAZOLE Inactive AUGMENTIN 500-125 MG TAB Take 1 capsule by mouth three times a day X 10 days AUGMENTIN 500-125 MG TAB 238344 AMOXICILLIN-POT CLAVULANATE Inactive Immunizations Vaccine Administration Date Value Standard Description Seasonal influenza vaccine, injectable, containing preservative, for > 3 years old (Afluria, FluLaval, Fluzone, Fluvirin, Fluarix, Agriflu(>=18 yo)) Fluzone (>3 yrs.) [[id number]] Influenza, seasonal, injectable Vital Signs Date Name [...] 5.0-8.5 Encounters Code Encounter Date Provider Facility CPT-78494 Level 3 Est. Patient 09:56:19 CDT Connie Amy H[facility]ILTON [facility] CPT-21520 Level 3 Est. Patient 12:31:18 BILLING AUDITOR Jensen Santiago MD [facility] CPT-73937 Level 3 Est. Patient 10:35:02 BILLING AUDITOR Cayetano Skinner MD [facility] CPT-70711 Level 3 Est. Patient 12:50:08 BILLING AUDITOR Cayetano Skinner MD [facility] Procedures Code Procedure Name Date Entry Date Standard Description CPT-51958 Spec Collection and Handling Fee 11:57:40 CDT CPT-J1020 Depo Medrol 60 mg (Methyl Prednisolone Acetate) 12:03:49 CDT CPT-53227 Abx/Therapy Injection 12:03:48 CDT CPT-J1020 Depo Medrol 60 mg (Methyl Prednisolone Acetate) 09:56:19 CDT CPT-65368 Spec Collection and Handling Fee 12:10:42 CDT CPT-PV Prev. Care Visit 12:10:42 CDT CPT-92566 Administration single or combination vaccine inc oral 16:45:52 BILLING AUDITOR CPT-94285 Influenza split virus > age 3 16:45:52 BILLING AUDITOR CPT-09130 Spec Collection and Handling Fee 10:35:02 BILLING AUDITOR
--- OUTSIDE RECORDS SUMMARY | 2019-04-22 10:51 | XMS REPORT | Clinical Summary ---
Author Author Admin, quickhuddle Organization [facility] Address Unknown Phone Unavailable Allergies, Adverse Reactions, [...] TABS 1 po qHS PRN Insomnia ESZOPICLONE 23414028924 Active Cayetano Skinner MD Active ZANTAC 150 MG TAB 1 tab po q am RANITIDINE HCL 70681651422 Active Dorothy Ayala APRN Active ZYRTEC ALLERGY 10 MG CAPS 1 po am CETIRIZINE HCL 59164050969 Active Dorothy Ayala APRN Active PREDNISONE 20 MG TAB 2 tabs daily for 4 days, 1 tab daily for 4 days, 1/2 tab daily for 4 days PREDNISONE 60167566907 Active Dorothy Ayala APRN Active VENLAFAXINE HCL 75 MG ORAL TABS 1.5 po BID VENLAFAXINE HCL 27076165866 Active Cayetano Skinner MD Active TRAZODONE HCL 100 MG ORAL TABS 0.5 to 1 po qHS PRN Insomnia TRAZODONE HCL 01433626296 No Longer Active Cayetano Skinner MD Active SERTRALINE HCL 100 MG ORAL TABS 2 po qd SERTRALINE HCL 41221371628 No Longer Active Cayetano Skinner MD Active MACROBID CAPS 1 cap po qd. NITROFURANTOIN MONOHYD MACRO CAPS 63380486957 No Longer Active Kimberly Brown MD Active SUBOXONE 8-2 MG SL FILM 1 1/2 STRIPS QD BUPRENORPHINE HCL-NALOXONE HCL 14516290648 Active Cayetano Skinner MD Active CIPRO 500 MG TAB 1 tablet by mouth twice daily CIPROFLOXACIN HCL 43443878806 No Longer Active Cayetano Skinner MD Active MACROBID 100 MG ORAL CAPS Take one by mouth daily NITROFURANTOIN MONOHYD MACRO 21960529579 No Longer Active Kimberly Brown MD Active SUBOXONE 8-2 MG SUBL 2 po qd BUPRENORPHINE HCL-NALOXONE HCL 48133510803 No Longer Active Kimberly Brown MD Active HYDROCORTISONE 2.5 % EXT CREA Apply three times a day to affected area HYDROCORTISONE 54699924015 No Longer Active Kimberly Brown MD Active AUGMENTIN 500-125 MG TAB Take 1 capsule by mouth three times a day X 10 days AMOXICILLIN-POT CLAVULANATE 56477131200 No Longer Active Connie Reyes APRN Active BACTRIM DS 800-160 MG TAB 1 tab by mouth twice daily TRIMETHOPRIM-SULFAMETHOXAZOLE 22800412330 No Longer Active Cayetano Skinner MD Active ZITHROMAX Z-MARTI 250 MG TABS 2 today, then 1 daily for 4 days AZITHROMYCIN 41634538112 No Longer Active Jensen Santiago MD Active CETIRIZINE HCL 10 MG TABS ONE DAILY CETIRIZINE HCL 19731706476 No Longer Active Jensen Santiago MD Active KLONOPIN 1 MG TAB 1/2 tab bid CLONAZEPAM 74665367269 No Longer Active Jensen Santiago MD Active ZOLPIDEM TARTRATE 10 MG TABS 1 q hs as needed for sleep ZOLPIDEM TARTRATE 40479444469 No Longer Active Jensen Santiago MD Active CELEXA 40 MG TABS Take one by mouth daily CITALOPRAM HYDROBROMIDE 15821165792 No Longer Active Jensen Santiago MD Active AMOXICILLIN 875 MG TABS 1 tab by mouth twice daily AMOXICILLIN 58056355685 No Longer Active Cayetano Skniner MD Active FLAGYL 500 MG TAB 1 tablet by mouth two times daily METRONIDAZOLE 10465767018 No Longer Active Cayetano Skinner MD Active FLAGYL 500 MG TAB 1 tablet by mouth two times daily METRONIDAZOLE 73852091847 No Longer Active Cayetano Skinner MD Active BUSPIRONE HCL 15 MG TABS 1/2 PO BID BUSPIRONE HCL 96861847080 No Longer Active Cayetano Skinner MD Active BUSPIRONE HCL 15 MG TABS 1/2 PO BID BUSPIRONE HCL 15 MG TABS 816521 BUSPIRONE HCL Inactive CELEXA 40 MG TABS Take one by mouth daily CELEXA 40 MG TABS 347949 CITALOPRAM HYDROBROMIDE Inactive ZOLPIDEM TARTRATE 10 MG TABS 1 q hs as needed for sleep ZOLPIDEM TARTRATE 10 MG TABS 656106 ZOLPIDEM TARTRATE Inactive KLONOPIN 1 MG TAB 1/2 tab bid KLONOPIN 1 MG TAB 432445 CLONAZEPAM Inactive CETIRIZINE HCL 10 MG TABS ONE DAILY CETIRIZINE HCL 10 MG TABS 5929139 CETIRIZINE HCL Inactive HYDROCORTISONE 2.5 % EXT CREA Apply three times a day to affected area HYDROCORTISONE 2.5 % EXT CREA 909000 HYDROCORTISONE Inactive SUBOXONE 8-2 MG SUBL 2 po qd SUBOXONE 8-2 MG SUBL BUPRENORPHINE HCL-NALOXONE HCL Inactive CIPRO 500 MG TAB 1 tablet by mouth twice daily CIPRO 500 MG TAB 351152 CIPROFLOXACIN HCL Inactive MACROBID CAPS 1 cap po qd. MACROBID CAPS NITROFURANTOIN MONOHYD MACRO CAPS Inactive FLAGYL 500 MG TAB 1 tablet by mouth two times daily FLAGYL 500 MG TAB 794498 METRONIDAZOLE Inactive FLAGYL 500 MG TAB 1 tablet by mouth two times daily FLAGYL 500 MG TAB 637820 METRONIDAZOLE Inactive AMOXICILLIN 875 MG TABS 1 tab by mouth twice daily AMOXICILLIN 875 MG TABS 844348 AMOXICILLIN Inactive ZITHROMAX Z-MARTI 250 MG TABS 2 today, then 1 daily for 4 days ZITHROMAX Z-MARTI 250 MG TABS 7694371 AZITHROMYCIN Inactive BACTRIM DS 800-160 MG TAB 1 tab by mouth twice daily BACTRIM DS 800-160 MG TAB 014054 TRIMETHOPRIM-SULFAMETHOXAZOLE Inactive AUGMENTIN 500-125 MG TAB Take 1 capsule by mouth three times a day X 10 days AUGMENTIN 500-125 MG TAB 647036 AMOXICILLIN-POT CLAVULANATE Inactive MACROBID 100 MG ORAL CAPS Take one by mouth daily MACROBID 100 MG ORAL CAPS 4195482 NITROFURANTOIN MONOHYD MACRO Inactive Immunizations Vaccine Administration Date Value Standard Description Seasonal influenza vaccine, injectable, containing preservative, for > 3 years old (Afluria, FluLaval, Fluzone, Fluvirin, Fluarix, Agriflu(>=18 yo)) Fluzone (>3 yrs.) [[id number]] Influenza, seasonal, injectable Vital Signs Date Name [...] Range Description Lab Report: C-REACTIVE PROTEIN, HIV-1/2 Agn/[place]/20483, Drug Abuse Pnl 10 ... - Chemistry rapid plasma reagin antibody titer NON-REACTIVE NON-REACTIVE Lab Report: C-REACTIVE PROTEIN, HIV-1/2 Agn/[place]/53440, Drug Abuse Pnl 10 ... - Lab chlamydia DNA probe NOT DETECTED NOT DETECTED Lab Report: C-REACTIVE PROTEIN, HIV-1/2 Agn/[place]/31870, Drug Abuse Pnl 10 ... - Microbiology Neisseria gonorrhoeae DNA probe NOT DETECTED NOT DETECTED Lab Report: CBC W/DIFF, Comp. Metabolic Panel, Free Thyroxine (L), Thyro ... - Chemistry sodium, serum 138 mmol/L 156-301 7344/09/12 carbon dioxide, venous blood 29.9 mmol/L 21.0-32.0 [...] 5.0-8.5 Encounters Code Encounter Date Provider Facility CPT-84319 Level 4 Est. Patient 22:21:42 CDT Dorothy Ayala [facility] [place] CPT-89009 Level 4 Est. Patient 21:18:20 CDT Dorothy Ayala [facility] [place] CPT-93024 Level 3 Est. Patient 10:06:58 CDT Dorothy Ayala [facility] [place] CPT-32061 Level 3 Est. Patient 09:36:26 CDT Dorothy Ayala [facility] [place] CPT-14067 Level 3 Est. Patient 16:55:26 CDT Cayetano Skinner MD [facility] CPT-45490 Level 2 Est. Patient 11:28:42 CDT Kimberly Brown MD [facility] CPT-94813 Level 3 Est. Patient 15:04:35 CDT Cayetano Skinner MD [facility] CPT-78883 Level 3 Est. Patient 15:07:05 EDUCATIONAL AIDE Cayetano Skinner MD [facility] CPT-67255 Level 3 Est. Patient 09:56:19 CDT Connie Reyes [facility] [place] CPT-32676 Level 3 Est. Patient 12:31:18 EDUCATIONAL AIDE Jensen Santiago MD [facility] CPT-60346 Level 3 Est. Patient 10:35:02 EDUCATIONAL AIDE Cayetano Skinner MD [facility] CPT-47379 Level 3 Est. Patient 12:50:08 EDUCATIONAL AIDE Cayetano Skinner MD [facility] Procedures Code Procedure Name Date Entry Date Standard Description CPT-19024 Venipuncture Draw Fee 10:10:37 CDT CPT-62559 AFP - [facility] 10:06:58 CDT CPT-63525 Bladder Scan 19:49:06 EDUCATIONAL AIDE CPT-19565 Spec Collection and Handling Fee 11:57:40 CDT CPT-J1020 Depo Medrol 60 mg (Methyl Prednisolone Acetate) 12:03:49 CDT CPT-37526 Abx/Therapy Injection 12:03:48 CDT CPT-J1020 Depo Medrol 60 mg (Methyl Prednisolone Acetate) 09:56:19 CDT CPT-35566 Spec Collection and Handling Fee 12:10:42 CDT CPT-PV Prev. Care Visit 12:10:42 CDT CPT-83825 Administration single or combination vaccine inc oral 16:45:52 EDUCATIONAL AIDE CPT-17246 Influenza split virus > age 3 16:45:52 EDUCATIONAL AIDE CPT-29343 Spec Collection and Handling Fee 10:35:02 EDUCATIONAL AIDE
--- OUTSIDE RECORDS SUMMARY | 2019-04-22 10:51 | XMS REPORT | Clinical Summary ---
Author Author Admin, [place] Organization [employer] Address Unknown Phone Unavailable Allergies, Adverse Reactions, [...] elsewhere classified Pruritus 698.9 Active Dorothy Ayala MANAGER PORTABLE Unspecified pruritic disorder Urticaria 708.9 Active Dorothy Ayala MANAGER PORTABLE Unspecified urticaria Hepatitis C 070.70 Active Dorothy [...] 1 po qHS PRN Insomnia TRAZODONE HCL 28890033555 Active Joanne Molina RMA Active LUNESTA 1 MG ORAL TABS 1 po qHS PRN Insomnia ESZOPICLONE 89779064632 No Longer Active Joanne Molina RMA Active ZANTAC 150 MG TAB 1 tab po q am RANITIDINE HCL 81829948587 Active Dorothy Ayala MANAGER PORTABLE Active ZYRTEC ALLERGY 10 MG CAPS 1 po am CETIRIZINE HCL 43941485976 Active Casperllvishal Scottmichellel MANAGER PORTABLE Active PREDNISONE 20 MG TAB 2 tabs daily for 4 days, 1 tab daily for 4 days, 1/2 tab daily for 4 days PREDNISONE 02013697748 Active Caspersb Ayala APRN Active VENLAFAXINE HCL 75 MG ORAL TABS 1.5 po BID VENLAFAXINE HCL 44204986795 Active Cayetano Skinner MD Active TRAZODONE HCL 100 MG ORAL TABS 0.5 to 1 po qHS PRN Insomnia TRAZODONE HCL 51387703361 No Longer Active Cayetano Skinner MD Active SERTRALINE HCL 100 MG ORAL TABS 2 po qd SERTRALINE HCL 13806531475 No Longer Active Cayetano Skinner MD Active MACROBID CAPS 1 cap po qd. NITROFURANTOIN MONOHYD MACRO CAPS 32545557974 No Longer Active Kimberly Brown MD Active SUBOXONE 8-2 MG SL FILM 1 1/2 STRIPS QD BUPRENORPHINE HCL-NALOXONE HCL 95999917351 Active Cayetano Skinner MD Active CIPRO 500 MG TAB 1 tablet by mouth twice daily CIPROFLOXACIN HCL 85446834969 No Longer Active Cayetano Skinner MD Active MACROBID 100 MG ORAL CAPS Take one by mouth daily NITROFURANTOIN MONOHYD MACRO 25643805408 No Longer Active Kimberly Brown MD Active SUBOXONE 8-2 MG SUBL 2 po qd BUPRENORPHINE HCL-NALOXONE HCL 45233741202 No Longer Active Kimberly Brown MD Active HYDROCORTISONE 2.5 % EXT CREA Apply three times a day to affected area HYDROCORTISONE 71541620503 No Longer Active Kimberly Brown MD Active AUGMENTIN 500-125 MG TAB Take 1 capsule by mouth three times a day X 10 days AMOXICILLIN-POT CLAVULANATE 23264366144 No Longer Active Connie Reyes APRN Active BACTRIM DS 800-160 MG TAB 1 tab by mouth twice daily TRIMETHOPRIM-SULFAMETHOXAZOLE 11374502348 No Longer Active Cayetano Skinner MD Active ZITHROMAX Z-MARTI 250 MG TABS 2 today, then 1 daily for 4 days AZITHROMYCIN 67463176113 No Longer Active Jensen Santiago MD Active CETIRIZINE HCL 10 MG TABS ONE DAILY CETIRIZINE HCL 63583405644 No Longer Active Jensen Santiago MD Active KLONOPIN 1 MG TAB 1/2 tab bid CLONAZEPAM 22041085641 No Longer Active Jensen Santiago MD Active ZOLPIDEM TARTRATE 10 MG TABS 1 q hs as needed for sleep ZOLPIDEM TARTRATE 93792681966 No Longer Active Jensen Santiago MD Active CELEXA 40 MG TABS Take one by mouth daily CITALOPRAM HYDROBROMIDE 29282036369 No Longer Active Jensen Santiago MD Active AMOXICILLIN 875 MG TABS 1 tab by mouth twice daily AMOXICILLIN 08640534120 No Longer Active Cayetano Skinner MD Active FLAGYL 500 MG TAB 1 tablet by mouth two times daily METRONIDAZOLE 94126677206 No Longer Active Cayetano Skinner MD Active FLAGYL 500 MG TAB 1 tablet by mouth two times daily METRONIDAZOLE 93789759134 No Longer Active Cayetano Skinner MD Active BUSPIRONE HCL 15 MG TABS 1/2 PO BID BUSPIRONE HCL 97297648058 No Longer Active Cayetano Skinner MD Active BUSPIRONE HCL 15 MG TABS 1/2 PO BID BUSPIRONE HCL 15 MG TABS 799095 BUSPIRONE HCL Inactive CELEXA 40 MG TABS Take one by mouth daily CELEXA 40 MG TABS 518235 CITALOPRAM HYDROBROMIDE Inactive ZOLPIDEM TARTRATE 10 MG TABS 1 q hs as needed for sleep ZOLPIDEM TARTRATE 10 MG TABS 242318 ZOLPIDEM TARTRATE Inactive KLONOPIN 1 MG TAB 1/2 tab bid KLONOPIN 1 MG TAB 170262 CLONAZEPAM Inactive CETIRIZINE HCL 10 MG TABS ONE DAILY CETIRIZINE HCL 10 MG TABS 2340864 CETIRIZINE HCL Inactive HYDROCORTISONE 2.5 % EXT CREA Apply three times a day to affected area HYDROCORTISONE 2.5 % EXT CREA 772476 HYDROCORTISONE Inactive SUBOXONE 8-2 MG SUBL 2 po qd SUBOXONE 8-2 MG SUBL BUPRENORPHINE HCL-NALOXONE HCL Inactive CIPRO 500 MG TAB 1 tablet by mouth twice daily CIPRO 500 MG TAB 490948 CIPROFLOXACIN HCL Inactive MACROBID CAPS 1 cap po qd. MACROBID CAPS NITROFURANTOIN MONOHYD MACRO CAPS Inactive LUNESTA 1 MG ORAL TABS 1 po qHS PRN Insomnia LUNESTA 1 MG ORAL TABS 207852 ESZOPICLONE Inactive FLAGYL 500 MG TAB 1 tablet by mouth two times daily FLAGYL 500 MG TAB 483118 METRONIDAZOLE Inactive FLAGYL 500 MG TAB 1 tablet by mouth two times daily FLAGYL 500 MG TAB 252845 METRONIDAZOLE Inactive AMOXICILLIN 875 MG TABS 1 tab by mouth twice daily AMOXICILLIN 875 MG TABS 702791 AMOXICILLIN Inactive ZITHROMAX Z-MARTI 250 MG TABS 2 today, then 1 daily for 4 days ZITHROMAX Z-MARTI 250 MG TABS 253666 AZITHROMYCIN Inactive BACTRIM DS 800-160 MG TAB 1 tab by mouth twice daily BACTRIM DS 800-160 MG TAB 021554 TRIMETHOPRIM-SULFAMETHOXAZOLE Inactive AUGMENTIN 500-125 MG TAB Take 1 capsule by mouth three times a day X 10 days AUGMENTIN 500-125 MG TAB 984733 AMOXICILLIN-POT CLAVULANATE Inactive MACROBID 100 MG ORAL CAPS Take one by mouth daily MACROBID 100 MG ORAL CAPS 5462066 NITROFURANTOIN MONOHYD MACRO Inactive Immunizations Vaccine Administration Date Value Standard Description Seasonal influenza vaccine, injectable, containing preservative, for > 3 years old (Afluria, FluLaval, Fluzone, Fluvirin, Fluarix, Agriflu(>=18 yo)) Fluzone (>3 yrs.) [[id number]] Influenza, seasonal, injectable Vital Signs Date Name [...] Range Description Lab Report: C-REACTIVE PROTEIN, HIV-1/2 Agn/[place]/50370, Drug Abuse Pnl 10 ... - Chemistry rapid plasma reagin antibody titer NON-REACTIVE NON-REACTIVE Lab Report: C-REACTIVE PROTEIN, HIV-1/2 Agn/[place]/33097, Drug Abuse Pnl 10 ... - Lab chlamydia DNA probe NOT DETECTED NOT DETECTED Lab Report: C-REACTIVE PROTEIN, HIV-1/2 Agn/[place]/75714, Drug Abuse Pnl 10 ... - Microbiology Neisseria gonorrhoeae DNA probe NOT DETECTED NOT DETECTED Lab Report: CBC W/DIFF, Comp. Metabolic Panel, Free Thyroxine (L), Thyro ... - Chemistry sodium, serum 138 mmol/L 759-220 6087/09/12 carbon dioxide, venous blood 29.9 mmol/L 21.0-32.0 [...] 5.0-8.5 Encounters Code Encounter Date Provider Facility CPT-41967 Level 4 Est. Patient 22:21:42 CDT Dorothy Ayala Formerly named [facility] CPT-60532 Level 4 Est. Patient 21:18:20 CDT Dorothy Ayala Formerly named [facility] CPT-91590 Level 3 Est. Patient 10:06:58 CDT Dorothy Ayala Formerly named [facility] CPT-61640 Level 3 Est. Patient 09:36:26 CDT Dorothy Ayala Formerly named [facility] CPT-85406 Level 3 Est. Patient 16:55:26 CDT Cayetano Skinner MD [facility] CPT-05896 Level 2 Est. Patient 11:28:42 CDT Kimberly Brown MD [facility] CPT-54958 Level 3 Est. Patient 15:04:35 CDT Cayetano Skinner MD [facility] CPT-87953 Level 3 Est. Patient 15:07:05 FINISHING LAB TECHNICIAN Cayetano Skinner MD [facility] CPT-89274 Level 3 Est. Patient 09:56:19 CDT Connie Lockecarmen HAMILTON [facility] CPT-12461 Level 3 Est. Patient 12:31:18 FINISHING LAB TECHNICIAN Jensen Santiago MD [facility] CPT-28751 Level 3 Est. Patient 10:35:02 FINISHING LAB TECHNICIAN Cayetano Skinner MD [facility] CPT-00393 Level 3 Est. Patient 12:50:08 FINISHING LAB TECHNICIAN Cayetano Skinner MD [facility] Procedures Code Procedure Name Date Entry Date Standard Description CPT-73509 Venipuncture Draw Fee 10:10:37 CDT CPT-38653 [facility] - [facility] 10:06:58 CDT CPT-98808 Bladder Scan 19:49:06 FINISHING LAB TECHNICIAN CPT-64092 Spec Collection and Handling Fee 11:57:40 CDT CPT-J1020 Depo Medrol 60 mg (Methyl Prednisolone Acetate) 12:03:49 CDT CPT-63170 Abx/Therapy Injection 12:03:48 CDT CPT-J1020 Depo Medrol 60 mg (Methyl Prednisolone Acetate) 09:56:19 CDT CPT-74695 Spec Collection and Handling Fee 12:10:42 CDT CPT-PV Prev. Care Visit 12:10:42 CDT CPT-23106 Administration single or combination vaccine inc oral 16:45:52 FINISHING LAB TECHNICIAN CPT-22591 Influenza split virus > age 3 16:45:52 FINISHING LAB TECHNICIAN CPT-02776 Spec Collection and Handling Fee 10:35:02 FINISHING LAB TECHNICIAN
--- OUTSIDE RECORDS SUMMARY | 2019-04-22 10:52 | XMS REPORT | Clinical Summary ---
Author Author Admin, [facility] Organization [facility] Address Unknown Phone Unavailable Allergies, Adverse [...] Generic Name NDC Status Provider Patient Instruction SERTRALINE HCL 100 MG ORAL TABS 2 po qd SERTRALINE HCL 62780074670 Active Cayetano Skinner MD Active MACROBID CAPS 1 cap po qd. NITROFURANTOIN MONOHYD MACRO CAPS 50092111246 No Longer Active Kibmerly Brown MD Active SUBOXONE 8-2 MG SL FILM 1 1/2 STRIPS QD BUPRENORPHINE HCL-NALOXONE HCL 60702718128 Active Cayetano Skinner MD Active CIPRO 500 MG TAB 1 tablet by mouth twice daily CIPROFLOXACIN HCL 10675365478 No Longer Active Cayetano Skinner MD Active MACROBID 100 MG ORAL CAPS Take one by mouth daily NITROFURANTOIN MONOHYD MACRO 75891874237 No Longer Active Kimberly Brown MD Active SUBOXONE 8-2 MG SUBL 2 po qd BUPRENORPHINE HCL-NALOXONE HCL 01591200425 No Longer Active Kimberly Brown MD Active HYDROCORTISONE 2.5 % EXT CREA Apply three times a day to affected area HYDROCORTISONE 06550142119 No Longer Active Kimberly Brown MD Active AUGMENTIN 500-125 MG TAB Take 1 capsule by mouth three times a day X 10 days AMOXICILLIN-POT CLAVULANATE 48671903192 No Longer Active Connie Reyes APRN Active BACTRIM DS 800-160 MG TAB 1 tab by mouth twice daily TRIMETHOPRIM-SULFAMETHOXAZOLE 81413330000 No Longer Active Cayetano Skinner MD Active ZITHROMAX Z-MARTI 250 MG TABS 2 today, then 1 daily for 4 days AZITHROMYCIN 51231281781 No Longer Active Jensen Santiago MD Active CETIRIZINE HCL 10 MG TABS ONE DAILY CETIRIZINE HCL 14890631893 No Longer Active Jensen Santiago MD Active KLONOPIN 1 MG TAB 1/2 tab bid CLONAZEPAM 28176176767 No Longer Active Jensen Santiago MD Active ZOLPIDEM TARTRATE 10 MG TABS 1 q hs as needed for sleep ZOLPIDEM TARTRATE 76532052988 No Longer Active Jensen Santiago MD Active CELEXA 40 MG TABS Take one by mouth daily CITALOPRAM HYDROBROMIDE 73080470576 No Longer Active Jensen Santiago MD Active AMOXICILLIN 875 MG TABS 1 tab by mouth twice daily AMOXICILLIN 04545016207 No Longer Active Cayetano Skinner MD Active FLAGYL 500 MG TAB 1 tablet by mouth two times daily METRONIDAZOLE 00237746830 No Longer Active Cayetano Skinner MD Active FLAGYL 500 MG TAB 1 tablet by mouth two times daily METRONIDAZOLE 76123185768 No Longer Active Cayetano Skinner MD Active BUSPIRONE HCL 15 MG TABS 1/2 PO BID BUSPIRONE HCL 02547929064 No Longer Active Cayetano Skinner MD Active BUSPIRONE HCL 15 MG TABS 1/2 PO BID BUSPIRONE HCL 15 MG TABS 828192 BUSPIRONE HCL Inactive CELEXA 40 MG TABS Take one by mouth daily CELEXA 40 MG TABS 109053 CITALOPRAM HYDROBROMIDE Inactive ZOLPIDEM TARTRATE 10 MG TABS 1 q hs as needed for sleep ZOLPIDEM TARTRATE 10 MG TABS 765834 ZOLPIDEM TARTRATE Inactive KLONOPIN 1 MG TAB 1/2 tab bid KLONOPIN 1 MG TAB 913260 CLONAZEPAM Inactive CETIRIZINE HCL 10 MG TABS ONE DAILY CETIRIZINE HCL 10 MG TABS 3449631 CETIRIZINE HCL Inactive HYDROCORTISONE 2.5 % EXT CREA Apply three times a day to affected area HYDROCORTISONE 2.5 % EXT CREA 778947 HYDROCORTISONE Inactive SUBOXONE 8-2 MG SUBL 2 po qd SUBOXONE 8-2 MG SUBL BUPRENORPHINE HCL-NALOXONE HCL Inactive CIPRO 500 MG TAB 1 tablet by mouth twice daily CIPRO 500 MG TAB 323821 CIPROFLOXACIN HCL Inactive MACROBID CAPS 1 cap po qd. MACROBID CAPS NITROFURANTOIN MONOHYD MACRO CAPS Inactive FLAGYL 500 MG TAB 1 tablet by mouth two times daily FLAGYL 500 MG TAB 588382 METRONIDAZOLE Inactive FLAGYL 500 MG TAB 1 tablet by mouth two times daily FLAGYL 500 MG TAB 487616 METRONIDAZOLE Inactive AMOXICILLIN 875 MG TABS 1 tab by mouth twice daily AMOXICILLIN 875 MG TABS 836488 AMOXICILLIN Inactive ZITHROMAX Z-MARTI 250 MG TABS 2 today, then 1 daily for 4 days ZITHROMAX Z-MARTI 250 MG TABS 7459136 AZITHROMYCIN Inactive BACTRIM DS 800-160 MG TAB 1 tab by mouth twice daily BACTRIM DS 800-160 MG TAB 904026 TRIMETHOPRIM-SULFAMETHOXAZOLE Inactive AUGMENTIN 500-125 MG TAB Take 1 capsule by mouth three times a day X 10 days AUGMENTIN 500-125 MG TAB 890941 AMOXICILLIN-POT CLAVULANATE Inactive MACROBID 100 MG ORAL CAPS Take one by mouth daily MACROBID 100 MG ORAL CAPS 5342818 NITROFURANTOIN MONOHYD MACRO Inactive Immunizations Vaccine Administration Date Value Standard Description Seasonal influenza vaccine, injectable, containing preservative, for > 3 years old (Afluria, FluLaval, Fluzone, Fluvirin, Fluarix, Agriflu(>=18 yo)) Fluzone (>3 yrs.) [[id number]] Influenza, seasonal, injectable Vital Signs Date Name Value Unit Range Description blood pressure, diastolic - 8462-4 80 mm[Hg] BP montejo blood pressure, systolic - 8480-6 121 mm[Hg] BP sys pulse rate E&M - 8867-4 92 /min Heart rate temperature E&M 98.3 [degF] Body temperature weight E&M - 3141-9 113.5 [lb_av] Weight Measured blood pressure, diastolic - 8462-4 84 mm[Hg] [...] E&M - 3141-9 115 [lb_av] Weight Measured Encounters Code Encounter Date Provider Facility CPT-00414 Level 2 Est. Patient 11:28:42 CDT Kimberly Brown MD [facility] CPT-25818 Level 3 Est. Patient 15:04:35 CDT Cayetano Skinner MD [facility] CPT-92930 Level 3 Est. Patient 15:07:05 NUT PACKER Cayetano Skinner MD [facility] CPT-16501 Level 3 Est. Patient 09:56:19 [facility] Level 3 Est. Patient 12:31:18 NUT PACKER Jensen Santiago MD [facility] CPT-45337 Level 3 Est. Patient 10:35:02 NUT PACKER Cayetano Skinner MD [facility] CPT-98493 Level 3 Est. Patient 12:50:08 NUT PACKER Cayetano Skinner MD [facility] Procedures Code Procedure Name Date Entry Date Standard Description CPT-50271 Bladder Scan 19:49:06 NUT PACKER CPT-55316 Spec Collection and Handling Fee 11:57:40 CDT CPT-J1020 Depo Medrol 60 mg (Methyl Prednisolone Acetate) 12:03:49 CDT CPT-13123 Abx/Therapy Injection 12:03:48 CDT CPT-J1020 Depo Medrol 60 mg (Methyl Prednisolone Acetate) 09:56:19 CDT CPT-48715 Spec Collection and Handling Fee 12:10:42 CDT CPT-PV Prev. Care Visit 12:10:42 CDT CPT-53569 Administration single or combination vaccine inc oral 16:45:52 NUT PACKER CPT-40488 Influenza split virus > age 3 16:45:52 NUT PACKER CPT-33058 Spec Collection and Handling Fee 10:35:02 NUT PACKER
--- OUTSIDE RECORDS SUMMARY | 2019-04-22 10:52 | XMS REPORT | Clinical Summary ---
Author Author Admin, [place] Organization [employer] Address Unknown Phone Unavailable Allergies, Adverse Reactions, [...] ORAL TABS 2 po qd SERTRALINE HCL 02817390346 Active Cayetano Skinner MD Active MACROBID CAPS 1 cap po qd. NITROFURANTOIN MONOHYD MACRO CAPS 89625138057 No Longer Active Kimberly Brown MD Active SUBOXONE 8-2 MG SL FILM 1 1/2 STRIPS QD BUPRENORPHINE HCL-NALOXONE HCL 32599838905 Active Cayetano Skinner MD Active CIPRO 500 MG TAB 1 tablet by mouth twice daily CIPROFLOXACIN HCL 43337179012 No Longer Active Cayetano Skinner MD Active MACROBID 100 MG ORAL CAPS Take one by mouth daily NITROFURANTOIN MONOHYD MACRO 49221308417 No Longer Active Kimberly Brown MD Active SUBOXONE 8-2 MG SUBL 2 po qd BUPRENORPHINE HCL-NALOXONE HCL 52620436514 No Longer Active Kimberly Brown MD Active HYDROCORTISONE 2.5 % EXT CREA Apply three times a day to affected area HYDROCORTISONE 48736693031 No Longer Active Kibmerly Brown MD Active AUGMENTIN 500-125 MG TAB Take 1 capsule by mouth three times a day X 10 days AMOXICILLIN-POT CLAVULANATE 55774675337 No Longer Active Connie Reyes APRN Active BACTRIM DS 800-160 MG TAB 1 tab by mouth twice daily TRIMETHOPRIM-SULFAMETHOXAZOLE 83884938780 No Longer Active Cayetano Skinner MD Active ZITHROMAX Z-MARTI 250 MG TABS 2 today, then 1 daily for 4 days AZITHROMYCIN 59524212884 No Longer Active Jensen Santiago MD Active CETIRIZINE HCL 10 MG TABS ONE DAILY CETIRIZINE HCL 87049100180 No Longer Active Jensen Santiago MD Active KLONOPIN 1 MG TAB 1/2 tab bid CLONAZEPAM 79273765919 No Longer Active Jensen Santiago MD Active ZOLPIDEM TARTRATE 10 MG TABS 1 q hs as needed for sleep ZOLPIDEM TARTRATE 33636967399 No Longer Active Jensen Santiago MD Active CELEXA 40 MG TABS Take one by mouth daily CITALOPRAM HYDROBROMIDE 54863874327 No Longer Active Jensen Santiago MD Active AMOXICILLIN 875 MG TABS 1 tab by mouth twice daily AMOXICILLIN 90273144800 No Longer Active Cayetano Skinner MD Active FLAGYL 500 MG TAB 1 tablet by mouth two times daily METRONIDAZOLE 33328126991 No Longer Active Cayetano Skinner MD Active FLAGYL 500 MG TAB 1 tablet by mouth two times daily METRONIDAZOLE 26651258144 No Longer Active Cayetano Skinner MD Active BUSPIRONE HCL 15 MG TABS 1/2 PO BID BUSPIRONE HCL 55009285683 No Longer Active Cayetano Skinner MD Active BUSPIRONE HCL 15 MG TABS 1/2 PO BID BUSPIRONE HCL 15 MG TABS 500300 BUSPIRONE HCL Inactive CELEXA 40 MG TABS Take one by mouth daily CELEXA 40 MG TABS 131250 CITALOPRAM HYDROBROMIDE Inactive ZOLPIDEM TARTRATE 10 MG TABS 1 q hs as needed for sleep ZOLPIDEM TARTRATE 10 MG TABS 457815 ZOLPIDEM TARTRATE Inactive KLONOPIN 1 MG TAB 1/2 tab bid KLONOPIN 1 MG TAB 258194 CLONAZEPAM Inactive CETIRIZINE HCL 10 MG TABS ONE DAILY CETIRIZINE HCL 10 MG TABS 8682802 CETIRIZINE HCL Inactive HYDROCORTISONE 2.5 % EXT CREA Apply three times a day to affected area HYDROCORTISONE 2.5 % EXT CREA 084693 HYDROCORTISONE Inactive SUBOXONE 8-2 MG SUBL 2 po qd SUBOXONE 8-2 MG SUBL BUPRENORPHINE HCL-NALOXONE HCL Inactive CIPRO 500 MG TAB 1 tablet by mouth twice daily CIPRO 500 MG TAB 904654 CIPROFLOXACIN HCL Inactive MACROBID CAPS 1 cap po qd. MACROBID CAPS NITROFURANTOIN MONOHYD MACRO CAPS Inactive FLAGYL 500 MG TAB 1 tablet by mouth two times daily FLAGYL 500 MG TAB 325115 METRONIDAZOLE Inactive FLAGYL 500 MG TAB 1 tablet by mouth two times daily FLAGYL 500 MG TAB 799526 METRONIDAZOLE Inactive AMOXICILLIN 875 MG TABS 1 tab by mouth twice daily AMOXICILLIN 875 MG TABS 652724 AMOXICILLIN Inactive ZITHROMAX Z-MARTI 250 MG TABS 2 today, then 1 daily for 4 days ZITHROMAX Z-MARTI 250 MG TABS 6438295 AZITHROMYCIN Inactive BACTRIM DS 800-160 MG TAB 1 tab by mouth twice daily BACTRIM DS 800-160 MG TAB 553508 TRIMETHOPRIM-SULFAMETHOXAZOLE Inactive AUGMENTIN 500-125 MG TAB Take 1 capsule by mouth three times a day X 10 days AUGMENTIN 500-125 MG TAB 623639 AMOXICILLIN-POT CLAVULANATE Inactive MACROBID 100 MG ORAL CAPS Take one by mouth daily MACROBID 100 MG ORAL CAPS 5805159 NITROFURANTOIN MONOHYD MACRO Inactive Immunizations Vaccine Administration Date Value Standard Description Seasonal influenza vaccine, injectable, containing preservative, for > 3 years old (Afluria, FluLaval, Fluzone, Fluvirin, Fluarix, Agriflu(>=18 yo)) Fluzone (>3 yrs.) [[id number]] Influenza, seasonal, injectable Vital Signs Date Name [...] Measured Encounters Code Encounter Date Provider Facility CPT-80279 Level 2 Est. Patient 11:28:42 CDT Kimberly Brown MD [facility] CPT-11570 Level 3 Est. Patient 15:04:35 CDT Cayetano Skinner MD [facility] CPT-52352 Level 3 Est. Patient 15:07:05 CASH MANAGEMENT SPECIALIST Cayetano Skinner MD [facility] CPT-11908 Level 3 Est. Patient 09:56:19 [facility] Level 3 Est. Patient 12:31:18 CASH MANAGEMENT SPECIALIST Jensen Santiago MD [facility] CPT-66576 Level 3 Est. Patient 10:35:02 CASH MANAGEMENT SPECIALIST Cayetano Skinner MD [facility] CPT-70602 Level 3 Est. Patient 12:50:08 CASH MANAGEMENT SPECIALIST Cayetano Skinner MD [facility] Procedures Code Procedure Name Date Entry Date Standard Description CPT-73360 Bladder Scan 19:49:06 CASH MANAGEMENT SPECIALIST CPT-17770 Spec Collection and Handling Fee 11:57:40 CDT CPT-J1020 Depo Medrol 60 mg (Methyl Prednisolone Acetate) 12:03:49 CDT CPT-66115 Abx/Therapy Injection 12:03:48 CDT CPT-J1020 Depo Medrol 60 mg (Methyl Prednisolone Acetate) 09:56:19 CDT CPT-37617 Spec Collection and Handling Fee 12:10:42 CDT CPT-PV Prev. Care Visit 12:10:42 CDT CPT-52425 Administration single or combination vaccine inc oral 16:45:52 CASH MANAGEMENT SPECIALIST CPT-88998 Influenza split virus > age 3 16:45:52 CASH MANAGEMENT SPECIALIST CPT-49070 Spec Collection and Handling Fee 10:35:02 CASH MANAGEMENT SPECIALIST
[2019-04-22 10:53] LABS: AMPHETAMINE SCREEN, URINE NEGATIVE (NEGATIVE); BARBITURATE SCREEN URINE NEGATIVE (NEGATIVE); BENZODIAZEPINES SCREEN URINE NEGATIVE (NEGATIVE); CANNABINOID SCREEN, URINE NEGATIVE (NEGATIVE); COCAINE SCREEN URINE NEGATIVE (NEGATIVE); METHADONE STAT NEGATIVE (NEGATIVE); METHAMPHETAMINE SCREEN URINE S NEGATIVE (NEGATIVE); OPIATE SCREEN URINE NEGATIVE (NEGATIVE); OXYCODONE STAT NEGATIVE (NEGATIVE); PROPOXYPHENE STAT NEGATIVE (NEGATIVE); TRICYCLIC ANTIDEPRESSANTS SCRE NEGATIVE (NEGATIVE)
--- OUTSIDE RECORDS SUMMARY | 2019-04-22 10:53 | XMS REPORT | Clinical Summary ---
Author Author Admin, [place] Organization [employer] Address Unknown Phone Unavailable Allergies, Adverse Reactions, [...] ORAL TABS 1 po qd SERTRALINE HCL 93269701659 Active Cayetano Skinner MD Active MACROBID CAPS 1 cap po qd. NITROFURANTOIN MONOHYD MACRO CAPS 46559996536 Active Cayetano Skinner MD Active SUBOXONE 8-2 MG SL FILM 1 1/2 STRIPS QD BUPRENORPHINE HCL-NALOXONE HCL 05873739012 Active Cayetano Skinner MD Active CIPRO 500 MG TAB 1 tablet by mouth twice daily CIPROFLOXACIN HCL 22622653933 No Longer Active Cayetano Skinner MD Active MACROBID 100 MG ORAL CAPS Take one by mouth daily NITROFURANTOIN MONOHYD MACRO 96111044680 No Longer Active Kimberly Brown MD Active SUBOXONE 8-2 MG SUBL 2 po qd BUPRENORPHINE HCL-NALOXONE HCL 54598217369 No Longer Active Kimberly Brown MD Active HYDROCORTISONE 2.5 % EXT CREA Apply three times a day to affected area HYDROCORTISONE 22684236965 No Longer Active Kimberly Brown MD Active AUGMENTIN 500-125 MG TAB Take 1 capsule by mouth three times a day X 10 days AMOXICILLIN-POT CLAVULANATE 30553577693 No Longer Active Connie Reyes APRN Active BACTRIM DS 800-160 MG TAB 1 tab by mouth twice daily TRIMETHOPRIM-SULFAMETHOXAZOLE 66009201651 No Longer Active Cayetano Skinner MD Active ZITHROMAX Z-MARTI 250 MG TABS 2 today, then 1 daily for 4 days AZITHROMYCIN 97537834357 No Longer Active Jensen Santiago MD Active CETIRIZINE HCL 10 MG TABS ONE DAILY CETIRIZINE HCL 83591555114 No Longer Active Jensen Santiago MD Active KLONOPIN 1 MG TAB 1/2 tab bid CLONAZEPAM 94077838533 No Longer Active Jensen Santiago MD Active ZOLPIDEM TARTRATE 10 MG TABS 1 q hs as needed for sleep ZOLPIDEM TARTRATE 14829007594 No Longer Active Jensen Santiago MD Active CELEXA 40 MG TABS Take one by mouth daily CITALOPRAM HYDROBROMIDE 59194508322 No Longer Active Jensen Santiago MD Active AMOXICILLIN 875 MG TABS 1 tab by mouth twice daily AMOXICILLIN 15129286345 No Longer Active Cayetano Skinner MD Active FLAGYL 500 MG TAB 1 tablet by mouth two times daily METRONIDAZOLE 64285932975 No Longer Active Cayetano Skinner MD Active FLAGYL 500 MG TAB 1 tablet by mouth two times daily METRONIDAZOLE 91300007852 No Longer Active Cayetano Skinner MD Active BUSPIRONE HCL 15 MG TABS 1/2 PO BID BUSPIRONE HCL 00232113920 No Longer Active Cayetano Skinner MD Active BUSPIRONE HCL 15 MG TABS 1/2 PO BID BUSPIRONE HCL 15 MG TABS 523291 BUSPIRONE HCL Inactive CELEXA 40 MG TABS Take one by mouth daily CELEXA 40 MG TABS 493287 CITALOPRAM HYDROBROMIDE Inactive ZOLPIDEM TARTRATE 10 MG TABS 1 q hs as needed for sleep ZOLPIDEM TARTRATE 10 MG TABS 760952 ZOLPIDEM TARTRATE Inactive KLONOPIN 1 MG TAB 1/2 tab bid KLONOPIN 1 MG TAB 799227 CLONAZEPAM Inactive CETIRIZINE HCL 10 MG TABS ONE DAILY CETIRIZINE HCL 10 MG TABS 4372253 CETIRIZINE HCL Inactive HYDROCORTISONE 2.5 % EXT CREA Apply three times a day to affected area HYDROCORTISONE 2.5 % EXT CREA 845908 HYDROCORTISONE Inactive SUBOXONE 8-2 MG SUBL 2 po qd SUBOXONE 8-2 MG SUBL BUPRENORPHINE HCL-NALOXONE HCL Inactive CIPRO 500 MG TAB 1 tablet by mouth twice daily CIPRO 500 MG TAB 063213 CIPROFLOXACIN HCL Inactive FLAGYL 500 MG TAB 1 tablet by mouth two times daily FLAGYL 500 MG TAB 044955 METRONIDAZOLE Inactive FLAGYL 500 MG TAB 1 tablet by mouth two times daily FLAGYL 500 MG TAB 656143 METRONIDAZOLE Inactive AMOXICILLIN 875 MG TABS 1 tab by mouth twice daily AMOXICILLIN 875 MG TABS 137125 AMOXICILLIN Inactive ZITHROMAX Z-MARTI 250 MG TABS 2 today, then 1 daily for 4 days ZITHROMAX Z-MARTI 250 MG TABS 0293838 AZITHROMYCIN Inactive BACTRIM DS 800-160 MG TAB 1 tab by mouth twice daily BACTRIM DS 800-160 MG TAB 525662 TRIMETHOPRIM-SULFAMETHOXAZOLE Inactive AUGMENTIN 500-125 MG TAB Take 1 capsule by mouth three times a day X 10 days AUGMENTIN 500-125 MG TAB 971523 AMOXICILLIN-POT CLAVULANATE Inactive MACROBID 100 MG ORAL CAPS Take one by mouth daily MACROBID 100 MG ORAL CAPS 2274213 NITROFURANTOIN MONOHYD MACRO Inactive Immunizations Vaccine Administration Date Value Standard Description Seasonal influenza vaccine, injectable, containing preservative, for > 3 years old (Afluria, FluLaval, Fluzone, Fluvirin, Fluarix, Agriflu(>=18 yo)) Fluzone (>3 yrs.) [[id number]] Influenza, seasonal, injectable Vital Signs Date Name [...] Measured Encounters Code Encounter Date Provider Facility CPT-18358 Level 3 Est. Patient 15:04:35 CDT Cayetano Skinner MD [facility] CPT-26477 Level 3 Est. Patient 15:07:05 ENGINE DISPATCHER Cayetano Skinner MD [facility] CPT-59735 Level 3 Est. Patient 09:56:19 CDT Connie Reyes [facility] CPT-38489 Level 3 Est. Patient 12:31:18 ENGINE DISPATCHER Jensen Santiago MD [facility] CPT-47653 Level 3 Est. Patient 10:35:02 ENGINE DISPATCHER Cayetano Skinner MD [facility] CPT-68123 Level 3 Est. Patient 12:50:08 ENGINE DISPATCHER Cayetano Skinner MD [facility] Procedures Code Procedure Name Date Entry Date Standard Description CPT-40903 Bladder Scan 19:49:06 ENGINE DISPATCHER CPT-43662 Spec Collection and Handling Fee 11:57:40 CDT CPT-J1020 Depo Medrol 60 mg (Methyl Prednisolone Acetate) 12:03:49 CDT CPT-66275 Abx/Therapy Injection 12:03:48 CDT CPT-J1020 Depo Medrol 60 mg (Methyl Prednisolone Acetate) 09:56:19 CDT CPT-24020 Spec Collection and Handling Fee 12:10:42 CDT CPT-PV Prev. Care Visit 12:10:42 CDT CPT-25240 Administration single or combination vaccine inc oral 16:45:52 ENGINE DISPATCHER CPT-99309 Influenza split virus > age 3 16:45:52 ENGINE DISPATCHER CPT-38079 Spec Collection and Handling Fee 10:35:02 ENGINE DISPATCHER
--- OUTSIDE RECORDS SUMMARY | 2019-04-22 10:53 | XMS REPORT | Clinical Summary ---
Author Author Admin, [place] Organization [employer] Address Unknown Phone Unavailable Allergies, Adverse Reactions, [...] MD Dysuria Sinusitis, acute 461.9 Resolved Cayetano Skniner MD Acute sinusitis, unspecified Pre-employment exam V70.5 Resolved Cayetano Skinner MD Health examination of defined subpopulations U T I-Recurrent Active Kimberly Brown MD Urinary tract infection, site not specified Depression 311 Active Cayetano Skinner MD Depressive disorder, not elsewhere classified Pruritus 698.9 Active Jillina Frazell [employer] Unspecified pruritic disorder Urticaria 708.9 Active Jillina Frazell [employer] Unspecified urticaria DEPRESSION ICD-311 Inactive Cayetano Skinner MD FH [...] 1 tab po q am RANITIDINE HCL 73665133951 Active Jillina Frazell [employer] Active ZYRTEC ALLERGY 10 MG CAPS 1 po am CETIRIZINE HCL 49823945889 Active Jillina Frazell [employer] Active PREDNISONE 20 MG TAB 2 tabs daily for 4 days, 1 tab daily for 4 days, 1/2 tab daily for 4 days PREDNISONE 22341019889 Active Jillina Frazell [employer] Active VENLAFAXINE HCL 75 MG ORAL TABS 1.5 po BID VENLAFAXINE HCL 71034112547 Active Cayetano Skinner MD Active TRAZODONE HCL 100 MG ORAL TABS 0.5 to 1 po qHS PRN Insomnia TRAZODONE HCL 60566757089 Active Cayetano Skinner MD Active SERTRALINE HCL 100 MG ORAL TABS 2 po qd SERTRALINE HCL 22931506918 No Longer Active Cayetano Skinner MD Active MACROBID CAPS 1 cap po qd. NITROFURANTOIN MONOHYD MACRO CAPS 56439828474 No Longer Active Kimberly Brown MD Active SUBOXONE 8-2 MG SL FILM 1 1/2 STRIPS QD BUPRENORPHINE HCL-NALOXONE HCL 17348587839 Active Cayetano Skinner MD Active CIPRO 500 MG TAB 1 tablet by mouth twice daily CIPROFLOXACIN HCL 11293359831 No Longer Active Cayetano Skinner MD Active MACROBID 100 MG ORAL CAPS Take one by mouth daily NITROFURANTOIN MONOHYD MACRO 14150634623 No Longer Active Kimberly Brown MD Active SUBOXONE 8-2 MG SUBL 2 po qd BUPRENORPHINE HCL-NALOXONE HCL 32861305686 No Longer Active Kimberly Brown MD Active HYDROCORTISONE 2.5 % EXT CREA Apply three times a day to affected area HYDROCORTISONE 72421638673 No Longer Active Kimberly Brown MD Active AUGMENTIN 500-125 MG TAB Take 1 capsule by mouth three times a day X 10 days AMOXICILLIN-POT CLAVULANATE 00323743209 No Longer Active Connie Reyes APRN Active BACTRIM DS 800-160 MG TAB 1 tab by mouth twice daily TRIMETHOPRIM-SULFAMETHOXAZOLE 86620012137 No Longer Active Cayetano Skinner MD Active ZITHROMAX Z-MARTI 250 MG TABS 2 today, then 1 daily for 4 days AZITHROMYCIN 16121826100 No Longer Active Jensen Santiago MD Active CETIRIZINE HCL 10 MG TABS ONE DAILY CETIRIZINE HCL 95708029797 No Longer Active Jensen Santiago MD Active KLONOPIN 1 MG TAB 1/2 tab bid CLONAZEPAM 56976181499 No Longer Active Jensen Santiago MD Active ZOLPIDEM TARTRATE 10 MG TABS 1 q hs as needed for sleep ZOLPIDEM TARTRATE 33361518772 No Longer Active Jensen Santiago MD Active CELEXA 40 MG TABS Take one by mouth daily CITALOPRAM HYDROBROMIDE 90230601474 No Longer Active Jensen Santiago MD Active AMOXICILLIN 875 MG TABS 1 tab by mouth twice daily AMOXICILLIN 17540852254 No Longer Active Cayetano Skinner MD Active FLAGYL 500 MG TAB 1 tablet by mouth two times daily METRONIDAZOLE 02944861116 No Longer Active Cayetano Skinner MD Active FLAGYL 500 MG TAB 1 tablet by mouth two times daily METRONIDAZOLE 81510388138 No Longer Active Cayetano Skinner MD Active BUSPIRONE HCL 15 MG TABS 1/2 PO BID BUSPIRONE HCL 17972673863 No Longer Active Cayetano Skinner MD Active BUSPIRONE HCL 15 MG TABS 1/2 PO BID BUSPIRONE HCL 15 MG TABS 639185 BUSPIRONE HCL Inactive CELEXA 40 MG TABS Take one by mouth daily CELEXA 40 MG TABS 054602 CITALOPRAM HYDROBROMIDE Inactive ZOLPIDEM TARTRATE 10 MG TABS 1 q hs as needed for sleep ZOLPIDEM TARTRATE 10 MG TABS 816453 ZOLPIDEM TARTRATE Inactive KLONOPIN 1 MG TAB 1/2 tab bid KLONOPIN 1 MG TAB 159856 CLONAZEPAM Inactive CETIRIZINE HCL 10 MG TABS ONE DAILY CETIRIZINE HCL 10 MG TABS 5573008 CETIRIZINE HCL Inactive HYDROCORTISONE 2.5 % EXT CREA Apply three times a day to affected area HYDROCORTISONE 2.5 % EXT CREA 341203 HYDROCORTISONE Inactive SUBOXONE 8-2 MG SUBL 2 po qd SUBOXONE 8-2 MG SUBL BUPRENORPHINE HCL-NALOXONE HCL Inactive CIPRO 500 MG TAB 1 tablet by mouth twice daily CIPRO 500 MG TAB 009357 CIPROFLOXACIN HCL Inactive MACROBID CAPS 1 cap po qd. MACROBID CAPS NITROFURANTOIN MONOHYD MACRO CAPS Inactive FLAGYL 500 MG TAB 1 tablet by mouth two times daily FLAGYL 500 MG TAB 066003 METRONIDAZOLE Inactive FLAGYL 500 MG TAB 1 tablet by mouth two times daily FLAGYL 500 MG TAB 741188 METRONIDAZOLE Inactive AMOXICILLIN 875 MG TABS 1 tab by mouth twice daily AMOXICILLIN 875 MG TABS 735511 AMOXICILLIN Inactive ZITHROMAX Z-MARTI 250 MG TABS 2 today, then 1 daily for 4 days ZITHROMAX Z-MARTI 250 MG TABS 7832829 AZITHROMYCIN Inactive BACTRIM DS 800-160 MG TAB 1 tab by mouth twice daily BACTRIM DS 800-160 MG TAB 910019 TRIMETHOPRIM-SULFAMETHOXAZOLE Inactive AUGMENTIN 500-125 MG TAB Take 1 capsule by mouth three times a day X 10 days AUGMENTIN 500-125 MG TAB 767783 AMOXICILLIN-POT CLAVULANATE Inactive MACROBID 100 MG ORAL CAPS Take one by mouth daily MACROBID 100 MG ORAL CAPS 2167032 NITROFURANTOIN MONOHYD MACRO Inactive Immunizations Vaccine Administration Date Value Standard Description Seasonal influenza vaccine, injectable, containing preservative, for > 3 years old (Afluria, FluLaval, Fluzone, Fluvirin, Fluarix, Agriflu(>=18 yo)) Fluzone (>3 yrs.) [[id number]] Influenza, seasonal, injectable Vital Signs Date Name [...] ... - Chemistry sodium, serum 138 mmol/L 223-665 7864/09/12 carbon dioxide, venous blood 29.9 mmol/L 21.0-32.0 [...] 142-424 Encounters Code Encounter Date Provider Facility CPT-62590 Level 3 Est. Patient 09:36:26 CDT Dorothy Ayala [facility] CPT-68102 Level 3 Est. Patient 16:55:26 CDT Cayetano Skinner MD [facility] CPT-69503 Level 2 Est. Patient 11:28:42 CDT Kimberly Brown MD [facility] CPT-91297 Level 3 Est. Patient 15:04:35 CDT Cayetano Skinner MD [facility] CPT-44539 Level 3 Est. Patient 15:07:05 GAS TECHNICIAN Cayetano Skinner MD [facility] CPT-27214 Level 3 Est. Patient 09:56:19 CDT Connie Reyes [facility] CPT-81901 Level 3 Est. Patient 12:31:18 GAS TECHNICIAN Jensen Santiago MD [facility] CPT-47553 Level 3 Est. Patient 10:35:02 GAS TECHNICIAN Cayetano Skinner MD [facility] CPT-29264 Level 3 Est. Patient 12:50:08 GAS TECHNICIAN Cayetano Skinner MD [facility] Procedures Code Procedure Name Date Entry Date Standard Description CPT-65637 Bladder Scan 19:49:06 GAS TECHNICIAN CPT-48169 Spec Collection and Handling Fee 11:57:40 CDT CPT-J1020 Depo Medrol 60 mg (Methyl Prednisolone Acetate) 12:03:49 CDT CPT-50006 Abx/Therapy Injection 12:03:48 CDT CPT-J1020 Depo Medrol 60 mg (Methyl Prednisolone Acetate) 09:56:19 CDT CPT-64067 Spec Collection and Handling Fee 12:10:42 CDT CPT-PV Prev. Care Visit 12:10:42 CDT CPT-34971 Administration single or combination vaccine inc oral 16:45:52 GAS TECHNICIAN CPT-84624 Influenza split virus > age 3 16:45:52 GAS TECHNICIAN CPT-68044 Spec Collection and Handling Fee 10:35:02 GAS TECHNICIAN
[2019-04-22 10:54] LABS: BACTERIA,URINE FEW /HPF; WBC,URINE RARE /HPF
--- OUTSIDE RECORDS SUMMARY | 2019-04-22 10:54 | XMS REPORT | Clinical Summary ---
Author Author Admin, [place] Organization [employer] Address Unknown Phone Unavailable Allergies, Adverse Reactions, [...] 1 po qHS PRN Insomnia TRAZODONE HCL 39864630172 Active Cayetano Skinner MD Active VENLAFAXINE HCL 75 MG ORAL TABS 1 po BID VENLAFAXINE HCL 02690734114 Active Cayetano Skinner MD Active SERTRALINE HCL 100 MG ORAL TABS 2 po qd SERTRALINE HCL 83244756252 No Longer Active Cayetano Skinner MD Active MACROBID CAPS 1 cap po qd. NITROFURANTOIN MONOHYD MACRO CAPS 48112032031 No Longer Active Kimberly Brown MD Active SUBOXONE 8-2 MG SL FILM 1 1/2 STRIPS QD BUPRENORPHINE HCL-NALOXONE HCL 15072054895 Active Cayetano Skinner MD Active CIPRO 500 MG TAB 1 tablet by mouth twice daily CIPROFLOXACIN HCL 99215474066 No Longer Active Cayetano Skinner MD Active MACROBID 100 MG ORAL CAPS Take one by mouth daily NITROFURANTOIN MONOHYD MACRO 16693073197 No Longer Active Kimberly Brown MD Active SUBOXONE 8-2 MG SUBL 2 po qd BUPRENORPHINE HCL-NALOXONE HCL 76795892713 No Longer Active Kimberly Brown MD Active HYDROCORTISONE 2.5 % EXT CREA Apply three times a day to affected area HYDROCORTISONE 24912569735 No Longer Active Kimberly Brown MD Active AUGMENTIN 500-125 MG TAB Take 1 capsule by mouth three times a day X 10 days AMOXICILLIN-POT CLAVULANATE 17880067746 No Longer Active Connie Reyes APRN Active BACTRIM DS 800-160 MG TAB 1 tab by mouth twice daily TRIMETHOPRIM-SULFAMETHOXAZOLE 26523756053 No Longer Active Cayetano Skinner MD Active ZITHROMAX Z-MARTI 250 MG TABS 2 today, then 1 daily for 4 days AZITHROMYCIN 18970156263 No Longer Active Jensen Santiago MD Active CETIRIZINE HCL 10 MG TABS ONE DAILY CETIRIZINE HCL 13938433517 No Longer Active Jensen Santiago MD Active KLONOPIN 1 MG TAB 1/2 tab bid CLONAZEPAM 29965349372 No Longer Active Jensen Santiago MD Active ZOLPIDEM TARTRATE 10 MG TABS 1 q hs as needed for sleep ZOLPIDEM TARTRATE 28247012598 No Longer Active Jensen Santiago MD Active CELEXA 40 MG TABS Take one by mouth daily CITALOPRAM HYDROBROMIDE 50868993586 No Longer Active Jensen Santiago MD Active AMOXICILLIN 875 MG TABS 1 tab by mouth twice daily AMOXICILLIN 19037704334 No Longer Active Cayetano Skinner MD Active FLAGYL 500 MG TAB 1 tablet by mouth two times daily METRONIDAZOLE 57565342523 No Longer Active Cayetano Skinner MD Active FLAGYL 500 MG TAB 1 tablet by mouth two times daily METRONIDAZOLE 57893810101 No Longer Active Cayetano Skinner MD Active BUSPIRONE HCL 15 MG TABS 1/2 PO BID BUSPIRONE HCL 12893466769 No Longer Active Cayetano Skinner MD Active BUSPIRONE HCL 15 MG TABS 1/2 PO BID BUSPIRONE HCL 15 MG TABS 709306 BUSPIRONE HCL Inactive CELEXA 40 MG TABS Take one by mouth daily CELEXA 40 MG TABS 008686 CITALOPRAM HYDROBROMIDE Inactive ZOLPIDEM TARTRATE 10 MG TABS 1 q hs as needed for sleep ZOLPIDEM TARTRATE 10 MG TABS 186887 ZOLPIDEM TARTRATE Inactive KLONOPIN 1 MG TAB 1/2 tab bid KLONOPIN 1 MG TAB 519831 CLONAZEPAM Inactive CETIRIZINE HCL 10 MG TABS ONE DAILY CETIRIZINE HCL 10 MG TABS 8301460 CETIRIZINE HCL Inactive HYDROCORTISONE 2.5 % EXT CREA Apply three times a day to affected area HYDROCORTISONE 2.5 % EXT CREA 874991 HYDROCORTISONE Inactive SUBOXONE 8-2 MG SUBL 2 po qd SUBOXONE 8-2 MG SUBL BUPRENORPHINE HCL-NALOXONE HCL Inactive CIPRO 500 MG TAB 1 tablet by mouth twice daily CIPRO 500 MG TAB 384567 CIPROFLOXACIN HCL Inactive MACROBID CAPS 1 cap po qd. MACROBID CAPS NITROFURANTOIN MONOHYD MACRO CAPS Inactive FLAGYL 500 MG TAB 1 tablet by mouth two times daily FLAGYL 500 MG TAB 383971 METRONIDAZOLE Inactive FLAGYL 500 MG TAB 1 tablet by mouth two times daily FLAGYL 500 MG TAB 053112 METRONIDAZOLE Inactive AMOXICILLIN 875 MG TABS 1 tab by mouth twice daily AMOXICILLIN 875 MG TABS 296297 AMOXICILLIN Inactive ZITHROMAX Z-MARTI 250 MG TABS 2 today, then 1 daily for 4 days ZITHROMAX Z-MARTI 250 MG TABS 4679355 AZITHROMYCIN Inactive BACTRIM DS 800-160 MG TAB 1 tab by mouth twice daily BACTRIM DS 800-160 MG TAB 742295 TRIMETHOPRIM-SULFAMETHOXAZOLE Inactive AUGMENTIN 500-125 MG TAB Take 1 capsule by mouth three times a day X 10 days AUGMENTIN 500-125 MG TAB 735512 AMOXICILLIN-POT CLAVULANATE Inactive MACROBID 100 MG ORAL CAPS Take one by mouth daily MACROBID 100 MG ORAL CAPS 5697186 NITROFURANTOIN MONOHYD MACRO Inactive Immunizations Vaccine Administration Date Value Standard Description Seasonal influenza vaccine, injectable, containing preservative, for > 3 years old (Afluria, FluLaval, Fluzone, Fluvirin, Fluarix, Agriflu(>=18 yo)) Fluzone (>3 yrs.) [[id number]] Influenza, seasonal, injectable Vital Signs Date Name [...] Measured Encounters Code Encounter Date Provider Facility CPT-59075 Level 3 Est. Patient 16:55:26 CDT Cayetano Skinner MD [facility] CPT-26366 Level 2 Est. Patient 11:28:42 CDT Kimberly Brown MD [facility] CPT-56100 Level 3 Est. Patient 15:04:35 CDT Cayetano Skinner MD [facility] CPT-16116 Level 3 Est. Patient 15:07:05 MULTIPLE DRILL OPERATOR Cayetano Skinner MD [facility] CPT-75123 Level 3 Est. Patient 09:56:19 CDT Connie Reyes APRN [facility] CPT-82865 Level 3 Est. Patient 12:31:18 MULTIPLE DRILL OPERATOR Jensen Santiago MD [facility] CPT-77650 Level 3 Est. Patient 10:35:02 MULTIPLE DRILL OPERATOR Cayetano Skinner MD [facility] CPT-26727 Level 3 Est. Patient 12:50:08 MULTIPLE DRILL OPERATOR Cayetano Skinner MD [facility] Procedures Code Procedure Name Date Entry Date Standard Description CPT-83245 Bladder Scan 19:49:06 MULTIPLE DRILL OPERATOR CPT-22657 Spec Collection and Handling Fee 11:57:40 CDT CPT-J1020 Depo Medrol 60 mg (Methyl Prednisolone Acetate) 12:03:49 CDT CPT-71800 Abx/Therapy Injection 12:03:48 CDT CPT-J1020 Depo Medrol 60 mg (Methyl Prednisolone Acetate) 09:56:19 CDT CPT-84152 Spec Collection and Handling Fee 12:10:42 CDT CPT-PV Prev. Care Visit 12:10:42 CDT CPT-09513 Administration single or combination vaccine inc oral 16:45:52 MULTIPLE DRILL OPERATOR CPT-48642 Influenza split virus > age 3 16:45:52 MULTIPLE DRILL OPERATOR CPT-65161 Spec Collection and Handling Fee 10:35:02 MULTIPLE DRILL OPERATOR
--- OUTSIDE RECORDS SUMMARY | 2019-04-22 10:54 | XMS REPORT | Clinical Summary ---
Author Author Admin, [place] Organization [employer] Address Unknown Phone Unavailable Allergies, Adverse Reactions, [...] Instruction SERTRALINE HCL 100 MG ORAL TABS 1.5 po qd SERTRALINE HCL 51449619943 Active Cayetano Skinner MD Active MACROBID CAPS 1 cap po qd. NITROFURANTOIN MONOHYD MACRO CAPS 85519595169 Active Cayetano Skinner MD Active SUBOXONE 8-2 MG SL FILM 1 1/2 STRIPS QD BUPRENORPHINE HCL-NALOXONE HCL 46605604166 Active Cayetano Skinner MD Active CIPRO 500 MG TAB 1 tablet by mouth twice daily CIPROFLOXACIN HCL 45465063256 No Longer Active Cayetano Skinner MD Active MACROBID 100 MG ORAL CAPS Take one by mouth daily NITROFURANTOIN MONOHYD MACRO 61514176566 No Longer Active Kimberly Brown MD Active SUBOXONE 8-2 MG SUBL 2 po qd BUPRENORPHINE HCL-NALOXONE HCL 64724171871 No Longer Active Kimberly Brown MD Active HYDROCORTISONE 2.5 % EXT CREA Apply three times a day to affected area HYDROCORTISONE 33873282655 No Longer Active Kimberly Brown MD Active AUGMENTIN 500-125 MG TAB Take 1 capsule by mouth three times a day X 10 days AMOXICILLIN-POT CLAVULANATE 28319857190 No Longer Active Connie Reyes APRN Active BACTRIM DS 800-160 MG TAB 1 tab by mouth twice daily TRIMETHOPRIM-SULFAMETHOXAZOLE 63714080026 No Longer Active Cayetano Skinner MD Active ZITHROMAX Z-MARTI 250 MG TABS 2 today, then 1 daily for 4 days AZITHROMYCIN 74387694114 No Longer Active Jensen Santiago MD Active CETIRIZINE HCL 10 MG TABS ONE DAILY CETIRIZINE HCL 05594073285 No Longer Active Jensen Santiago MD Active KLONOPIN 1 MG TAB 1/2 tab bid CLONAZEPAM 25545682475 No Longer Active Jensen Santiago MD Active ZOLPIDEM TARTRATE 10 MG TABS 1 q hs as needed for sleep ZOLPIDEM TARTRATE 02649138362 No Longer Active Jensen Santiago MD Active CELEXA 40 MG TABS Take one by mouth daily CITALOPRAM HYDROBROMIDE 96251000760 No Longer Active Jensen Santiago MD Active AMOXICILLIN 875 MG TABS 1 tab by mouth twice daily AMOXICILLIN 78867561002 No Longer Active Cayetano Skinner MD Active FLAGYL 500 MG TAB 1 tablet by mouth two times daily METRONIDAZOLE 69446326652 No Longer Active Cayetano Skinner MD Active FLAGYL 500 MG TAB 1 tablet by mouth two times daily METRONIDAZOLE 63861704911 No Longer Active Cayetano Skinner MD Active BUSPIRONE HCL 15 MG TABS 1/2 PO BID BUSPIRONE HCL 85638234413 No Longer Active Cayetano Skinner MD Active BUSPIRONE HCL 15 MG TABS 1/2 PO BID BUSPIRONE HCL 15 MG TABS 755773 BUSPIRONE HCL Inactive CELEXA 40 MG TABS Take one by mouth daily CELEXA 40 MG TABS 176526 CITALOPRAM HYDROBROMIDE Inactive ZOLPIDEM TARTRATE 10 MG TABS 1 q hs as needed for sleep ZOLPIDEM TARTRATE 10 MG TABS 481174 ZOLPIDEM TARTRATE Inactive KLONOPIN 1 MG TAB 1/2 tab bid KLONOPIN 1 MG TAB 065698 CLONAZEPAM Inactive CETIRIZINE HCL 10 MG TABS ONE DAILY CETIRIZINE HCL 10 MG TABS 4387717 CETIRIZINE HCL Inactive HYDROCORTISONE 2.5 % EXT CREA Apply three times a day to affected area HYDROCORTISONE 2.5 % EXT CREA 056816 HYDROCORTISONE Inactive SUBOXONE 8-2 MG SUBL 2 po qd SUBOXONE 8-2 MG SUBL BUPRENORPHINE HCL-NALOXONE HCL Inactive CIPRO 500 MG TAB 1 tablet by mouth twice daily CIPRO 500 MG TAB 336718 CIPROFLOXACIN HCL Inactive FLAGYL 500 MG TAB 1 tablet by mouth two times daily FLAGYL 500 MG TAB 209925 METRONIDAZOLE Inactive FLAGYL 500 MG TAB 1 tablet by mouth two times daily FLAGYL 500 MG TAB 039969 METRONIDAZOLE Inactive AMOXICILLIN 875 MG TABS 1 tab by mouth twice daily AMOXICILLIN 875 MG TABS 634513 AMOXICILLIN Inactive ZITHROMAX Z-MARTI 250 MG TABS 2 today, then 1 daily for 4 days ZITHROMAX Z-MARTI 250 MG TABS 4492761 AZITHROMYCIN Inactive BACTRIM DS 800-160 MG TAB 1 tab by mouth twice daily BACTRIM DS 800-160 MG TAB 751251 TRIMETHOPRIM-SULFAMETHOXAZOLE Inactive AUGMENTIN 500-125 MG TAB Take 1 capsule by mouth three times a day X 10 days AUGMENTIN 500-125 MG TAB 289602 AMOXICILLIN-POT CLAVULANATE Inactive MACROBID 100 MG ORAL CAPS Take one by mouth daily MACROBID 100 MG ORAL CAPS 6210477 NITROFURANTOIN MONOHYD MACRO Inactive Immunizations Vaccine Administration Date Value Standard Description Seasonal influenza vaccine, injectable, containing preservative, for > 3 years old (Afluria, FluLaval, Fluzone, Fluvirin, Fluarix, Agriflu(>=18 yo)) Fluzone (>3 yrs.) [[id number]] Influenza, seasonal, injectable Vital Signs Date Name [...] Measured Encounters Code Encounter Date Provider Facility CPT-14561 Level 3 Est. Patient 15:04:35 CDT Cayetano Skinner MD [facility] CPT-57237 Level 3 Est. Patient 15:07:05 FLOORS BUFFER Cayetano Skinner MD [facility] CPT-21846 Level 3 Est. Patient 09:56:19 CD[facility] Level 3 Est. Patient 12:31:18 FLOORS BUFFER Jensen Santiago MD [facility] CPT-24682 Level 3 Est. Patient 10:35:02 FLOORS BUFFER Cayetano Skinner MD [facility] CPT-82301 Level 3 Est. Patient 12:50:08 FLOORS BUFFER Cayetano Skinner MD [facility] Procedures Code Procedure Name Date Entry Date Standard Description CPT-41111 Bladder Scan 19:49:06 FLOORS BUFFER CPT-21866 Spec Collection and Handling Fee 11:57:40 CDT CPT-J1020 Depo Medrol 60 mg (Methyl Prednisolone Acetate) 12:03:49 CDT CPT-33953 Abx/Therapy Injection 12:03:48 CDT CPT-J1020 Depo Medrol 60 mg (Methyl Prednisolone Acetate) 09:56:19 CDT CPT-45440 Spec Collection and Handling Fee 12:10:42 CDT CPT-PV Prev. Care Visit 12:10:42 CDT CPT-04373 Administration single or combination vaccine inc oral 16:45:52 FLOORS BUFFER CPT-31066 Influenza split virus > age 3 16:45:52 FLOORS BUFFER CPT-28741 Spec Collection and Handling Fee 10:35:02 FLOORS BUFFER
--- OUTSIDE RECORDS SUMMARY | 2019-04-22 10:55 | XMS REPORT | Clinical Summary ---
Author Author Admin, E Organization [facility] Address Unknown Phone Unavailable Allergies, Adverse [...] a day X 10 days AMOXICILLIN-POT CLAVULANATE 30783608208 Active Connie Reyes APRN Active BACTRIM DS 800-160 MG TAB 1 tab by mouth twice daily TRIMETHOPRIM-SULFAMETHOXAZOLE 29728107614 No Longer Active Cayetano Skinner MD Active HYDROCORTISONE 2.5 % EXT CREA Apply three times a day to affected area HYDROCORTISONE 34293616900 Active Melinda Yochris H[place] Active ZITHROMAX Z-MARTI 250 MG TABS 2 today, then 1 daily for 4 days AZITHROMYCIN 22461525587 No Longer Active Jensen Santiago MD Active SUBOXONE 8-2 MG SUBL 2 po qd BUPRENORPHINE HCL-NALOXONE HCL 08008585736 Active Jensen Santiago MD Active CETIRIZINE HCL 10 MG TABS ONE DAILY CETIRIZINE HCL 90408651845 No Longer Active Jensen Santiago MD Active KLONOPIN 1 MG TAB 1/2 tab bid CLONAZEPAM 04251394254 No Longer Active Jensen Santiago MD Active ZOLPIDEM TARTRATE 10 MG TABS 1 q hs as needed for sleep ZOLPIDEM TARTRATE 94246730569 No Longer Active Jensen Santiago MD Active CELEXA 40 MG TABS Take one by mouth daily CITALOPRAM HYDROBROMIDE 91603678292 No Longer Active Jensen Santiago MD Active AMOXICILLIN 875 MG TABS 1 tab by mouth twice daily AMOXICILLIN 95704886361 No Longer Active Cayetano Skinner MD Active FLAGYL 500 MG TAB 1 tablet by mouth two times daily METRONIDAZOLE 26381102814 No Longer Active Cayetano Skinner MD Active FLAGYL 500 MG TAB 1 tablet by mouth two times daily METRONIDAZOLE 43112866979 No Longer Active Cayetano Skinner MD Active BUSPIRONE HCL 15 MG TABS 1/2 PO BID BUSPIRONE HCL 10350410596 No Longer Active Cayetano Skinner MD Active BUSPIRONE HCL 15 MG TABS 1/2 PO BID BUSPIRONE HCL 15 MG TABS 935694 BUSPIRONE HCL Inactive CELEXA 40 MG TABS Take one by mouth daily CELEXA 40 MG TABS 098072 CITALOPRAM HYDROBROMIDE Inactive ZOLPIDEM TARTRATE 10 MG TABS 1 q hs as needed for sleep ZOLPIDEM TARTRATE 10 MG TABS 080783 ZOLPIDEM TARTRATE Inactive KLONOPIN 1 MG TAB 1/2 tab bid KLONOPIN 1 MG TAB 365370 CLONAZEPAM Inactive CETIRIZINE HCL 10 MG TABS ONE DAILY CETIRIZINE HCL 10 MG TABS 0650270 CETIRIZINE HCL Inactive FLAGYL 500 MG TAB 1 tablet by mouth two times daily FLAGYL 500 MG TAB 181724 METRONIDAZOLE Inactive FLAGYL 500 MG TAB 1 tablet by mouth two times daily FLAGYL 500 MG TAB 259423 METRONIDAZOLE Inactive AMOXICILLIN 875 MG TABS 1 tab by mouth twice daily AMOXICILLIN 875 MG TABS 020987 AMOXICILLIN Inactive ZITHROMAX Z-MARTI 250 MG TABS 2 today, then 1 daily for 4 days ZITHROMAX Z-MARTI 250 MG TABS 3281689 AZITHROMYCIN Inactive BACTRIM DS 800-160 MG TAB 1 tab by mouth twice daily BACTRIM DS 800-160 MG TAB 310607 TRIMETHOPRIM-SULFAMETHOXAZOLE Inactive Immunizations Vaccine Administration Date Value Standard Description Seasonal influenza vaccine, injectable, containing preservative, for > 3 years old (Afluria, FluLaval, Fluzone, Fluvirin, Fluarix, Agriflu(>=18 yo)) Fluzone (>3 yrs.) [[id number]] Influenza, seasonal, injectable Vital Signs Date Name [...] W/MICRO, AUTO - Chemistry RBC, urine, dipstick 3+ Negative protein, total urine random 2+ mg/dL Negative Lab Report: UADIP W/MICRO, AUTO - Urinalysis pH, urine, semiquantitative 6.0 5.0-8.5 specific gravity, urine 1.025 1.000-1.030 appearance, urine Cloudy Clear urine color [place] Colorless;Lightyellow;Straw;Yellow urobilinogen, urine, semiquantitative (dipstick) 1.0 Normal leukocyte esterase, urine, by dipstick 1+ Negative nitrite, urine, semiquantitative Positive Negative glucose, urine, semiquantitative Negative Negative ketones, urine, by test strip Negative Negative bilirubin, urine Negative Negative Encounters Code Encounter Date Provider Facility CPT-09981 Level 3 Est. Patient 09:56:19 CDT Connie Reyes APRN [facility] CPT-61167 Level 3 Est. Patient 12:31:18 SURVEY CREW CHIEF Jensen Santiago MD [facility] CPT-52594 Level 3 Est. Patient 10:35:02 SURVEY CREW CHIEF Cayetano Skinner MD [facility] CPT-20653 Level 3 Est. Patient 12:50:08 SURVEY CREW CHIEF Cayetano Skinner MD [facility] Procedures Code Procedure Name Date Entry Date Standard Description CPT-J1020 Depo Medrol 60 mg (Methyl Prednisolone Acetate) 09:56:19 CDT CPT-09480 Spec Collection and Handling Fee 12:10:42 CDT CPT-PV Prev. Care Visit 12:10:42 CDT CPT-29885 Administration single or combination vaccine inc oral 16:45:52 SURVEY CREW CHIEF CPT-63606 Influenza split virus > age 3 16:45:52 SURVEY CREW CHIEF CPT-23650 Spec Collection and Handling Fee 10:35:02 SURVEY CREW CHIEF
--- OUTSIDE RECORDS SUMMARY | 2019-04-22 10:55 | XMS REPORT | Clinical Summary ---
Author Author Admin, [place] Organization [employer] Address Unknown Phone Unavailable Allergies, Adverse Reactions, [...] elsewhere classified Pruritus 698.9 Active Fadiaina Derrelll BILL DISTRIBUTOR Unspecified pruritic disorder Urticaria 708.9 Active Dorothy [...] 1 tab po q am RANITIDINE HCL 05182969627 Active Jillina Frazell BILL DISTRIBUTOR Active ZYRTEC ALLERGY 10 MG CAPS 1 po am CETIRIZINE HCL 25441400037 Active Jillina Frazell BILL DISTRIBUTOR Active PREDNISONE 20 MG TAB 2 tabs daily for 4 days, 1 tab daily for 4 days, /2 tab daily for 4 days PREDNISONE 14771279647 Active Dorothy Scotttamara H[place] Active VENLAFAXINE HCL 75 MG ORAL TABS 1.5 po BID VENLAFAXINE HCL 26395260265 Active Cayetano Skinner MD Active TRAZODONE HCL 100 MG ORAL TABS 0.5 to 1 po qHS PRN Insomnia TRAZODONE HCL 47402405067 Active Cayetano Skinner MD Active SERTRALINE HCL 100 MG ORAL TABS 2 po qd SERTRALINE HCL 32235697950 No Longer Active Cayetano Skinner MD Active MACROBID CAPS 1 cap po qd. NITROFURANTOIN MONOHYD MACRO CAPS 77850446400 No Longer Active Kimberly Brown MD Active SUBOXONE 8-2 MG SL FILM 1 1/2 STRIPS QD BUPRENORPHINE HCL-NALOXONE HCL 42642792379 Active Cayetano Skinner MD Active CIPRO 500 MG TAB 1 tablet by mouth twice daily CIPROFLOXACIN HCL 74706577475 No Longer Active Cayetano Skinner MD Active MACROBID 100 MG ORAL CAPS Take one by mouth daily NITROFURANTOIN MONOHYD MACRO 04344735550 No Longer Active Kimberly Brown MD Active SUBOXONE 8-2 MG SUBL 2 po qd BUPRENORPHINE HCL-NALOXONE HCL 08291029060 No Longer Active Kimberly Brown MD Active HYDROCORTISONE 2.5 % EXT CREA Apply three times a day to affected area HYDROCORTISONE 48078701702 No Longer Active Kimberly Brown MD Active AUGMENTIN 500-125 MG TAB Take 1 capsule by mouth three times a day X 10 days AMOXICILLIN-POT CLAVULANATE 84123316173 No Longer Active Connie Reyes APRN Active BACTRIM DS 800-160 MG TAB 1 tab by mouth twice daily TRIMETHOPRIM-SULFAMETHOXAZOLE 10217135176 No Longer Active Cayetano Skinner MD Active ZITHROMAX Z-MARTI 250 MG TABS 2 today, then 1 daily for 4 days AZITHROMYCIN 21307462931 No Longer Active Jensen Santiago MD Active CETIRIZINE HCL 10 MG TABS ONE DAILY CETIRIZINE HCL 84599941998 No Longer Active Jensen Santiago MD Active KLONOPIN 1 MG TAB 1/2 tab bid CLONAZEPAM 09499441336 No Longer Active Jensen Santiago MD Active ZOLPIDEM TARTRATE 10 MG TABS 1 q hs as needed for sleep ZOLPIDEM TARTRATE 46299036226 No Longer Active Jensen Santiago MD Active CELEXA 40 MG TABS Take one by mouth daily CITALOPRAM HYDROBROMIDE 26820718269 No Longer Active Jensen Santiago MD Active AMOXICILLIN 875 MG TABS 1 tab by mouth twice daily AMOXICILLIN 07053968345 No Longer Active Cayetano Skinner MD Active FLAGYL 500 MG TAB 1 tablet by mouth two times daily METRONIDAZOLE 07364017849 No Longer Active Cayetano Skinner MD Active FLAGYL 500 MG TAB 1 tablet by mouth two times daily METRONIDAZOLE 79550469731 No Longer Active Cayetano Skinner MD Active BUSPIRONE HCL 15 MG TABS 1/2 PO BID BUSPIRONE HCL 23092396602 No Longer Active Cayetano Skinner MD Active BUSPIRONE HCL 15 MG TABS 1/2 PO BID BUSPIRONE HCL 15 MG TABS 490331 BUSPIRONE HCL Inactive CELEXA 40 MG TABS Take one by mouth daily CELEXA 40 MG TABS 247588 CITALOPRAM HYDROBROMIDE Inactive ZOLPIDEM TARTRATE 10 MG TABS 1 q hs as needed for sleep ZOLPIDEM TARTRATE 10 MG TABS 341395 ZOLPIDEM TARTRATE Inactive KLONOPIN 1 MG TAB 1/2 tab bid KLONOPIN 1 MG TAB 382359 CLONAZEPAM Inactive CETIRIZINE HCL 10 MG TABS ONE DAILY CETIRIZINE HCL 10 MG TABS 0602686 CETIRIZINE HCL Inactive HYDROCORTISONE 2.5 % EXT CREA Apply three times a day to affected area HYDROCORTISONE 2.5 % EXT CREA 074114 HYDROCORTISONE Inactive SUBOXONE 8-2 MG SUBL 2 po qd SUBOXONE 8-2 MG SUBL BUPRENORPHINE HCL-NALOXONE HCL Inactive CIPRO 500 MG TAB 1 tablet by mouth twice daily CIPRO 500 MG TAB 606399 CIPROFLOXACIN HCL Inactive MACROBID CAPS 1 cap po qd. MACROBID CAPS NITROFURANTOIN MONOHYD MACRO CAPS Inactive FLAGYL 500 MG TAB 1 tablet by mouth two times daily FLAGYL 500 MG TAB 785854 METRONIDAZOLE Inactive FLAGYL 500 MG TAB 1 tablet by mouth two times daily FLAGYL 500 MG TAB 157228 METRONIDAZOLE Inactive AMOXICILLIN 875 MG TABS 1 tab by mouth twice daily AMOXICILLIN 875 MG TABS 775048 AMOXICILLIN Inactive ZITHROMAX Z-MARTI 250 MG TABS 2 today, then 1 daily for 4 days ZITHROMAX Z-MARTI 250 MG TABS 3467472 AZITHROMYCIN Inactive BACTRIM DS 800-160 MG TAB 1 tab by mouth twice daily BACTRIM DS 800-160 MG TAB 445570 TRIMETHOPRIM-SULFAMETHOXAZOLE Inactive AUGMENTIN 500-125 MG TAB Take 1 capsule by mouth three times a day X 10 days AUGMENTIN 500-125 MG TAB 922136 AMOXICILLIN-POT CLAVULANATE Inactive MACROBID 100 MG ORAL CAPS Take one by mouth daily MACROBID 100 MG ORAL CAPS 6117201 NITROFURANTOIN MONOHYD MACRO Inactive Immunizations Vaccine Administration Date Value Standard Description Seasonal influenza vaccine, injectable, containing preservative, for > 3 years old (Afluria, FluLaval, Fluzone, Fluvirin, Fluarix, Agriflu(>=18 yo)) Fluzone (>3 yrs.) [[id number]] Influenza, seasonal, injectable Vital Signs Date Name [...] Range Description Lab Report: C-REACTIVE PROTEIN, HIV-1/2 Agn/[place]/22360, Drug Abuse Pnl 10 ... - Chemistry rapid plasma reagin antibody titer NON-REACTIVE NON-REACTIVE Lab Report: C-REACTIVE PROTEIN, HIV-1/2 Agn/[place]/21678, Drug Abuse Pnl 10 ... - Lab chlamydia DNA probe NOT DETECTED NOT DETECTED Lab Report: C-REACTIVE PROTEIN, HIV-1/2 Agn/[place]/33015, Drug Abuse Pnl 10 ... - Microbiology Neisseria gonorrhoeae DNA probe NOT DETECTED NOT DETECTED Lab Report: CBC W/DIFF, Comp. Metabolic Panel, Free Thyroxine (L), Thyro ... - Chemistry sodium, serum 138 mmol/L 056-280 8368/09/12 carbon dioxide, venous blood 29.9 mmol/L 21.0-32.0 [...] 5.0-8.5 Encounters Code Encounter Date Provider Facility CPT-51779 Level 4 Est. Patient 22:21:42 CDT Dorothy Ayala [facility] CPT-56107 Level 4 Est. Patient 21:18:20 CDT Dorothy Ayala [facility] CPT-88599 Level 3 Est. Patient 10:06:58 CDT Dorothy Ayala [facility] CPT-29013 Level 3 Est. Patient 09:36:26 CDT Dorothy Ayala [facility] CPT-46044 Level 3 Est. Patient 16:55:26 CDT Cayetano Skinner MD [facility] CPT-70724 Level 2 Est. Patient 11:28:42 CDT Kimberly Brown MD [facility] CPT-38390 Level 3 Est. Patient 15:04:35 CDT Cayetano Skinner MD [facility] CPT-21825 Level 3 Est. Patient 15:07:05 BATTER OUT Cayetano Skinner MD [facility] CPT-42606 Level 3 Est. Patient 09:56:19 CDT Connie Reyes [facility] CPT-78429 Level 3 Est. Patient 12:31:18 BATTER OUT Jensen Santiago MD [facility] CPT-20396 Level 3 Est. Patient 10:35:02 BATTER OUT Cayetano Skinner MD [facility] CPT-74582 Level 3 Est. Patient 12:50:08 BATTER OUT Cayetano Skinner MD [facility] Procedures Code Procedure Name Date Entry Date Standard Description CPT-11736 Venipuncture Draw Fee 10:10:37 CDT CPT-06477 [facility] 10:06:58 CDT CPT-75452 Bladder Scan 19:49:06 BATTER OUT CPT-79784 Spec Collection and Handling Fee 11:57:40 CDT CPT-J1020 Depo Medrol 60 mg (Methyl Prednisolone Acetate) 12:03:49 CDT CPT-42235 Abx/Therapy Injection 12:03:48 CDT CPT-J1020 Depo Medrol 60 mg (Methyl Prednisolone Acetate) 09:56:19 CDT CPT-58041 Spec Collection and Handling Fee 12:10:42 CDT CPT-PV Prev. Care Visit 12:10:42 CDT CPT-87508 Administration single or combination vaccine inc oral 16:45:52 BATTER OUT CPT-17174 Influenza split virus > age 3 16:45:52 BATTER OUT CPT-22907 Spec Collection and Handling Fee 10:35:02 BATTER OUT
--- OUTSIDE RECORDS SUMMARY | 2019-04-22 10:56 | XMS REPORT | Clinical Summary ---
Author Author Admin, [place] Organization [facility] Address Unknown Phone Unavailable Allergies, Adverse Reactions, [...] ORAL TABS 1 po BID VENLAFAXINE HCL 98160255587 Active Cayetano Skinner MD Active SERTRALINE HCL 100 MG ORAL TABS 2 po qd SERTRALINE HCL 29839299975 No Longer Active Cayetano Skinner MD Active MACROBID CAPS 1 cap po qd. NITROFURANTOIN MONOHYD MACRO CAPS 00978094864 No Longer Active Kimberly Brown MD Active SUBOXONE 8-2 MG SL FILM 1 1/2 STRIPS QD BUPRENORPHINE HCL-NALOXONE HCL 58302695472 Active Cayetano Skinner MD Active CIPRO 500 MG TAB 1 tablet by mouth twice daily CIPROFLOXACIN HCL 87874865888 No Longer Active Cayetano Skinner MD Active MACROBID 100 MG ORAL CAPS Take one by mouth daily NITROFURANTOIN MONOHYD MACRO 14225399229 No Longer Active Kimberly Brown MD Active SUBOXONE 8-2 MG SUBL 2 po qd BUPRENORPHINE HCL-NALOXONE HCL 28314267762 No Longer Active Kimberly Brown MD Active HYDROCORTISONE 2.5 % EXT CREA Apply three times a day to affected area HYDROCORTISONE 10794768567 No Longer Active Kimberly Brown MD Active AUGMENTIN 500-125 MG TAB Take 1 capsule by mouth three times a day X 10 days AMOXICILLIN-POT CLAVULANATE 42465815244 No Longer Active Connie Reyes APRN Active BACTRIM DS 800-160 MG TAB 1 tab by mouth twice daily TRIMETHOPRIM-SULFAMETHOXAZOLE 80928350058 No Longer Active Cayetano Skinner MD Active ZITHROMAX Z-MARTI 250 MG TABS 2 today, then 1 daily for 4 days AZITHROMYCIN 55693490368 No Longer Active Jensen Santiago MD Active CETIRIZINE HCL 10 MG TABS ONE DAILY CETIRIZINE HCL 01443897286 No Longer Active Jensen Santiago MD Active KLONOPIN 1 MG TAB 1/2 tab bid CLONAZEPAM 46490091749 No Longer Active Jensen Santiago MD Active ZOLPIDEM TARTRATE 10 MG TABS 1 q hs as needed for sleep ZOLPIDEM TARTRATE 91153218727 No Longer Active Jensen Santiago MD Active CELEXA 40 MG TABS Take one by mouth daily CITALOPRAM HYDROBROMIDE 71270445950 No Longer Active Jensen Santiago MD Active AMOXICILLIN 875 MG TABS 1 tab by mouth twice daily AMOXICILLIN 04963921724 No Longer Active Cayetano Skinner MD Active FLAGYL 500 MG TAB 1 tablet by mouth two times daily METRONIDAZOLE 36304331936 No Longer Active Cayetano Skinner MD Active FLAGYL 500 MG TAB 1 tablet by mouth two times daily METRONIDAZOLE 47375417643 No Longer Active Cayetano Skinner MD Active BUSPIRONE HCL 15 MG TABS 1/2 PO BID BUSPIRONE HCL 46589180347 No Longer Active Cayetano Skinner MD Active BUSPIRONE HCL 15 MG TABS 1/2 PO BID BUSPIRONE HCL 15 MG TABS 062502 BUSPIRONE HCL Inactive CELEXA 40 MG TABS Take one by mouth daily CELEXA 40 MG TABS 873964 CITALOPRAM HYDROBROMIDE Inactive ZOLPIDEM TARTRATE 10 MG TABS 1 q hs as needed for sleep ZOLPIDEM TARTRATE 10 MG TABS 010087 ZOLPIDEM TARTRATE Inactive KLONOPIN 1 MG TAB 1/2 tab bid KLONOPIN 1 MG TAB 730776 CLONAZEPAM Inactive CETIRIZINE HCL 10 MG TABS ONE DAILY CETIRIZINE HCL 10 MG TABS 9655712 CETIRIZINE HCL Inactive HYDROCORTISONE 2.5 % EXT CREA Apply three times a day to affected area HYDROCORTISONE 2.5 % EXT CREA 141138 HYDROCORTISONE Inactive SUBOXONE 8-2 MG SUBL 2 po qd SUBOXONE 8-2 MG SUBL BUPRENORPHINE HCL-NALOXONE HCL Inactive CIPRO 500 MG TAB 1 tablet by mouth twice daily CIPRO 500 MG TAB 928208 CIPROFLOXACIN HCL Inactive MACROBID CAPS 1 cap po qd. MACROBID CAPS NITROFURANTOIN MONOHYD MACRO CAPS Inactive FLAGYL 500 MG TAB 1 tablet by mouth two times daily FLAGYL 500 MG TAB 049026 METRONIDAZOLE Inactive FLAGYL 500 MG TAB 1 tablet by mouth two times daily FLAGYL 500 MG TAB 827551 METRONIDAZOLE Inactive AMOXICILLIN 875 MG TABS 1 tab by mouth twice daily AMOXICILLIN 875 MG TABS 996657 AMOXICILLIN Inactive ZITHROMAX Z-MARTI 250 MG TABS 2 today, then 1 daily for 4 days ZITHROMAX Z-MARTI 250 MG TABS 8451007 AZITHROMYCIN Inactive BACTRIM DS 800-160 MG TAB 1 tab by mouth twice daily BACTRIM DS 800-160 MG TAB 243832 TRIMETHOPRIM-SULFAMETHOXAZOLE Inactive AUGMENTIN 500-125 MG TAB Take 1 capsule by mouth three times a day X 10 days AUGMENTIN 500-125 MG TAB 116274 AMOXICILLIN-POT CLAVULANATE Inactive MACROBID 100 MG ORAL CAPS Take one by mouth daily MACROBID 100 MG ORAL CAPS 4369829 NITROFURANTOIN MONOHYD MACRO Inactive Immunizations Vaccine Administration Date Value Standard Description Seasonal influenza vaccine, injectable, containing preservative, for > 3 years old (Afluria, FluLaval, Fluzone, Fluvirin, Fluarix, Agriflu(>=18 yo)) Fluzone (>3 yrs.) [[id number]] Influenza, seasonal, injectable Vital Signs Date Name [...] Measured Encounters Code Encounter Date Provider Facility CPT-35969 Level 3 Est. Patient 16:55:26 CDT Cayetano Skinner MD [facility] CPT-13594 Level 2 Est. Patient 11:28:42 CDT Kimberly Brown MD [facility] CPT-74052 Level 3 Est. Patient 15:04:35 CDT Cayetano Skinner MD [facility] CPT-81878 Level 3 Est. Patient 15:07:05 PROTECTIVE SIGNAL INSTALLER Cayetano Skinner MD [facility] CPT-83684 Level 3 Est. Patient 09:56:19 CDT Connie Reyes APRN [facility] CPT-28586 Level 3 Est. Patient 12:31:18 PROTECTIVE SIGNAL INSTALLER Jensen Santiago MD [facility] CPT-88980 Level 3 Est. Patient 10:35:02 PROTECTIVE SIGNAL INSTALLER Cayetano Skinner MD [facility] CPT-01140 Level 3 Est. Patient 12:50:08 PROTECTIVE SIGNAL INSTALLER Cayetano Skinner MD [facility] Procedures Code Procedure Name Date Entry Date Standard Description CPT-13323 Bladder Scan 19:49:06 PROTECTIVE SIGNAL INSTALLER CPT-95971 Spec Collection and Handling Fee 11:57:40 CDT CPT-J1020 Depo Medrol 60 mg (Methyl Prednisolone Acetate) 12:03:49 CDT CPT-34225 Abx/Therapy Injection 12:03:48 CDT CPT-J1020 Depo Medrol 60 mg (Methyl Prednisolone Acetate) 09:56:19 CDT CPT-04112 Spec Collection and Handling Fee 12:10:42 CDT CPT-PV Prev. Care Visit 12:10:42 CDT CPT-20260 Administration single or combination vaccine inc oral 16:45:52 PROTECTIVE SIGNAL INSTALLER CPT-41388 Influenza split virus > age 3 16:45:52 PROTECTIVE SIGNAL INSTALLER CPT-80970 Spec Collection and Handling Fee 10:35:02 PROTECTIVE SIGNAL INSTALLER
--- OUTSIDE RECORDS SUMMARY | 2019-04-22 10:56 | XMS REPORT | Clinical Summary ---
Author Author Admin, [place] Organization [facility] Address Unknown Phone Unavailable Allergies, Adverse Reactions, [...] days, then 1 po qd SERTRALINE HCL 45430872900 Active Cayetano Skinner MD Active SUBOXONE 8-2 MG SL FILM 1 1/2 STRIPS QD BUPRENORPHINE HCL-NALOXONE HCL 46362954601 Active Cayetano Skinner MD Active CIPRO 500 MG TAB 1 tablet by mouth twice daily CIPROFLOXACIN HCL 36145480461 No Longer Active Cayetano Skinner MD Active MACROBID 100 MG ORAL CAPS Take one by mouth daily NITROFURANTOIN MONOHYD MACRO 00014370767 No Longer Active Kimberly Brown MD Active SUBOXONE 8-2 MG SUBL 2 po qd BUPRENORPHINE HCL-NALOXONE HCL 75344212036 No Longer Active Kimberly Brown MD Active HYDROCORTISONE 2.5 % EXT CREA Apply three times a day to affected area HYDROCORTISONE 13350232256 No Longer Active Kimberly Brown MD Active AUGMENTIN 500-125 MG TAB Take 1 capsule by mouth three times a day X 10 days AMOXICILLIN-POT CLAVULANATE 29309378850 No Longer Active Connie Reyes APRN Active BACTRIM DS 800-160 MG TAB 1 tab by mouth twice daily TRIMETHOPRIM-SULFAMETHOXAZOLE 46570885893 No Longer Active Cayetano Skinner MD Active ZITHROMAX Z-MARTI 250 MG TABS 2 today, then 1 daily for 4 days AZITHROMYCIN 89585955286 No Longer Active Jensen Santiago MD Active CETIRIZINE HCL 10 MG TABS ONE DAILY CETIRIZINE HCL 73555330791 No Longer Active Jensen Santiago MD Active KLONOPIN 1 MG TAB 1/2 tab bid CLONAZEPAM 38522556430 No Longer Active Jensen Santiago MD Active ZOLPIDEM TARTRATE 10 MG TABS 1 q hs as needed for sleep ZOLPIDEM TARTRATE 26738332891 No Longer Active Jensen Santiago MD Active CELEXA 40 MG TABS Take one by mouth daily CITALOPRAM HYDROBROMIDE 95226072488 No Longer Active Jensen Santiago MD Active AMOXICILLIN 875 MG TABS 1 tab by mouth twice daily AMOXICILLIN 07788333002 No Longer Active Cayetano Skinner MD Active FLAGYL 500 MG TAB 1 tablet by mouth two times daily METRONIDAZOLE 56965211989 No Longer Active Cayetano Skinner MD Active FLAGYL 500 MG TAB 1 tablet by mouth two times daily METRONIDAZOLE 16798938599 No Longer Active Cayetano Skinner MD Active BUSPIRONE HCL 15 MG TABS 1/2 PO BID BUSPIRONE HCL 06521151970 No Longer Active Cayetano Skinner MD Active BUSPIRONE HCL 15 MG TABS 1/2 PO BID BUSPIRONE HCL 15 MG TABS 330357 BUSPIRONE HCL Inactive CELEXA 40 MG TABS Take one by mouth daily CELEXA 40 MG TABS 989418 CITALOPRAM HYDROBROMIDE Inactive ZOLPIDEM TARTRATE 10 MG TABS 1 q hs as needed for sleep ZOLPIDEM TARTRATE 10 MG TABS 409480 ZOLPIDEM TARTRATE Inactive KLONOPIN 1 MG TAB 1/2 tab bid KLONOPIN 1 MG TAB 697380 CLONAZEPAM Inactive CETIRIZINE HCL 10 MG TABS ONE DAILY CETIRIZINE HCL 10 MG TABS 2508819 CETIRIZINE HCL Inactive HYDROCORTISONE 2.5 % EXT CREA Apply three times a day to affected area HYDROCORTISONE 2.5 % EXT CREA 664019 HYDROCORTISONE Inactive SUBOXONE 8-2 MG SUBL 2 po qd SUBOXONE 8-2 MG SUBL BUPRENORPHINE HCL-NALOXONE HCL Inactive CIPRO 500 MG TAB 1 tablet by mouth twice daily CIPRO 500 MG TAB 390272 CIPROFLOXACIN HCL Inactive FLAGYL 500 MG TAB 1 tablet by mouth two times daily FLAGYL 500 MG TAB 718112 METRONIDAZOLE Inactive FLAGYL 500 MG TAB 1 tablet by mouth two times daily FLAGYL 500 MG TAB 337322 METRONIDAZOLE Inactive AMOXICILLIN 875 MG TABS 1 tab by mouth twice daily AMOXICILLIN 875 MG TABS 548837 AMOXICILLIN Inactive ZITHROMAX Z-MARTI 250 MG TABS 2 today, then 1 daily for 4 days ZITHROMAX Z-MARTI 250 MG TABS 4711441 AZITHROMYCIN Inactive BACTRIM DS 800-160 MG TAB 1 tab by mouth twice daily BACTRIM DS 800-160 MG TAB 122713 TRIMETHOPRIM-SULFAMETHOXAZOLE Inactive AUGMENTIN 500-125 MG TAB Take 1 capsule by mouth three times a day X 10 days AUGMENTIN 500-125 MG TAB 511285 AMOXICILLIN-POT CLAVULANATE Inactive MACROBID 100 MG ORAL CAPS Take one by mouth daily MACROBID 100 MG ORAL CAPS 7678520 NITROFURANTOIN MONOHYD MACRO Inactive Immunizations Vaccine Administration Date Value Standard Description Seasonal influenza vaccine, injectable, containing preservative, for > 3 years old (Afluria, FluLaval, Fluzone, Fluvirin, Fluarix, Agriflu(>=18 yo)) Fluzone (>3 yrs.) [[id number]] Influenza, seasonal, injectable Vital Signs Date Name [...] Measured Encounters Code Encounter Date Provider Facility CPT-10852 Level 3 Est. Patient 15:07:05 MANAGER OF SUPPLY CHAIN Cayetano Skinner MD [facility] CPT-31221 Level 3 Est. Patient 09:56:19 CDT Connie Lockecarmen HAMILTON [facility] CPT-80619 Level 3 Est. Patient 12:31:18 MANAGER OF SUPPLY CHAIN Jensen Santiago MD [facility] CPT-08808 Level 3 Est. Patient 10:35:02 MANAGER OF SUPPLY CHAIN Cayetano Skinner MD [facility] CPT-87579 Level 3 Est. Patient 12:50:08 MANAGER OF SUPPLY CHAIN Cayetano Skinner MD [facility] Procedures Code Procedure Name Date Entry Date Standard Description CPT-95206 Bladder Scan 19:49:06 MANAGER OF SUPPLY CHAIN CPT-75325 Spec Collection and Handling Fee 11:57:40 CDT CPT-J1020 Depo Medrol 60 mg (Methyl Prednisolone Acetate) 12:03:49 CDT CPT-57635 Abx/Therapy Injection 12:03:48 CDT CPT-J1020 Depo Medrol 60 mg (Methyl Prednisolone Acetate) 09:56:19 CDT CPT-14184 Spec Collection and Handling Fee 12:10:42 CDT CPT-PV Prev. Care Visit 12:10:42 CDT CPT-70909 Administration single or combination vaccine inc oral 16:45:52 MANAGER OF SUPPLY CHAIN CPT-71767 Influenza split virus > age 3 16:45:52 MANAGER OF SUPPLY CHAIN CPT-45310 Spec Collection and Handling Fee 10:35:02 MANAGER OF SUPPLY CHAIN
--- OUTSIDE RECORDS SUMMARY | 2019-04-22 10:56 | XMS REPORT | Clinical Summary ---
Author Author Admin, [place] Organization [facility] Address Unknown Phone Unavailable Allergies, Adverse Reactions, [...] elsewhere classified Pruritus 698.9 Active Dorothy Ayala CHARGER Unspecified pruritic disorder Urticaria 708.9 Active Dorothy Ayala CHARGER Unspecified urticaria Hepatitis C 070.70 Active Dorothy [...] 1 po qHS PRN Insomnia TRAZODONE HCL 93804583047 Active Joanne Molina RMA Active LUNESTA 1 MG ORAL TABS 1 po qHS PRN Insomnia ESZOPICLONE 60466213847 No Longer Active Joanne Molina RMA Active ZANTAC 150 MG TAB 1 tab po q am RANITIDINE HCL 76337351282 Active Dorothy Ayala CHARGER Active ZYRTEC ALLERGY 10 MG CAPS 1 po am CETIRIZINE HCL 63677556354 Active Casperllvishal Scottmichellel CHARGER Active PREDNISONE 20 MG TAB 2 tabs daily for 4 days, 1 tab daily for 4 days, 1/2 tab daily for 4 days PREDNISONE 38786628768 Active Caspersb Ayala APRN Active VENLAFAXINE HCL 75 MG ORAL TABS 1.5 po BID VENLAFAXINE HCL 57453184329 Active Cayetano Skinner MD Active TRAZODONE HCL 100 MG ORAL TABS 0.5 to 1 po qHS PRN Insomnia TRAZODONE HCL 44871982811 No Longer Active Cayetano Skinner MD Active SERTRALINE HCL 100 MG ORAL TABS 2 po qd SERTRALINE HCL 25186696304 No Longer Active Cayetano Skinner MD Active MACROBID CAPS 1 cap po qd. NITROFURANTOIN MONOHYD MACRO CAPS 97313308155 No Longer Active Kimberly Brown MD Active SUBOXONE 8-2 MG SL FILM 1 1/2 STRIPS QD BUPRENORPHINE HCL-NALOXONE HCL 14149915249 Active Cayetano Skinner MD Active CIPRO 500 MG TAB 1 tablet by mouth twice daily CIPROFLOXACIN HCL 06492313070 No Longer Active Cayetano Skinner MD Active MACROBID 100 MG ORAL CAPS Take one by mouth daily NITROFURANTOIN MONOHYD MACRO 74408350643 No Longer Active Kimberly Brown MD Active SUBOXONE 8-2 MG SUBL 2 po qd BUPRENORPHINE HCL-NALOXONE HCL 16910745707 No Longer Active Kimberly Brown MD Active HYDROCORTISONE 2.5 % EXT CREA Apply three times a day to affected area HYDROCORTISONE 98022545748 No Longer Active Kimberly Brown MD Active AUGMENTIN 500-125 MG TAB Take 1 capsule by mouth three times a day X 10 days AMOXICILLIN-POT CLAVULANATE 74269935852 No Longer Active Connie Reyes APRN Active BACTRIM DS 800-160 MG TAB 1 tab by mouth twice daily TRIMETHOPRIM-SULFAMETHOXAZOLE 46429698340 No Longer Active Cayetano Skinner MD Active ZITHROMAX Z-MATRI 250 MG TABS 2 today, then 1 daily for 4 days AZITHROMYCIN 07458828783 No Longer Active Jensen Santiago MD Active CETIRIZINE HCL 10 MG TABS ONE DAILY CETIRIZINE HCL 97777729630 No Longer Active Jensen Santiago MD Active KLONOPIN 1 MG TAB 1/2 tab bid CLONAZEPAM 16663073643 No Longer Active Jensen Santiago MD Active ZOLPIDEM TARTRATE 10 MG TABS 1 q hs as needed for sleep ZOLPIDEM TARTRATE 63429789623 No Longer Active Jensen Santiago MD Active CELEXA 40 MG TABS Take one by mouth daily CITALOPRAM HYDROBROMIDE 78547125238 No Longer Active Jensen Santiago MD Active AMOXICILLIN 875 MG TABS 1 tab by mouth twice daily AMOXICILLIN 25995743172 No Longer Active Cayetano Skinner MD Active FLAGYL 500 MG TAB 1 tablet by mouth two times daily METRONIDAZOLE 69782644841 No Longer Active Cayetano Skinner MD Active FLAGYL 500 MG TAB 1 tablet by mouth two times daily METRONIDAZOLE 09465651177 No Longer Active Cayetano Skinner MD Active BUSPIRONE HCL 15 MG TABS 1/2 PO BID BUSPIRONE HCL 09276879027 No Longer Active Cayetano Skinner MD Active BUSPIRONE HCL 15 MG TABS 1/2 PO BID BUSPIRONE HCL 15 MG TABS 509267 BUSPIRONE HCL Inactive CELEXA 40 MG TABS Take one by mouth daily CELEXA 40 MG TABS 700841 CITALOPRAM HYDROBROMIDE Inactive ZOLPIDEM TARTRATE 10 MG TABS 1 q hs as needed for sleep ZOLPIDEM TARTRATE 10 MG TABS 611156 ZOLPIDEM TARTRATE Inactive KLONOPIN 1 MG TAB 1/2 tab bid KLONOPIN 1 MG TAB 134728 CLONAZEPAM Inactive CETIRIZINE HCL 10 MG TABS ONE DAILY CETIRIZINE HCL 10 MG TABS 1623186 CETIRIZINE HCL Inactive HYDROCORTISONE 2.5 % EXT CREA Apply three times a day to affected area HYDROCORTISONE 2.5 % EXT CREA 310950 HYDROCORTISONE Inactive SUBOXONE 8-2 MG SUBL 2 po qd SUBOXONE 8-2 MG SUBL BUPRENORPHINE HCL-NALOXONE HCL Inactive CIPRO 500 MG TAB 1 tablet by mouth twice daily CIPRO 500 MG TAB 424088 CIPROFLOXACIN HCL Inactive MACROBID CAPS 1 cap po qd. MACROBID CAPS NITROFURANTOIN MONOHYD MACRO CAPS Inactive LUNESTA 1 MG ORAL TABS 1 po qHS PRN Insomnia LUNESTA 1 MG ORAL TABS 186823 ESZOPICLONE Inactive FLAGYL 500 MG TAB 1 tablet by mouth two times daily FLAGYL 500 MG TAB 750187 METRONIDAZOLE Inactive FLAGYL 500 MG TAB 1 tablet by mouth two times daily FLAGYL 500 MG TAB 138168 METRONIDAZOLE Inactive AMOXICILLIN 875 MG TABS 1 tab by mouth twice daily AMOXICILLIN 875 MG TABS 842963 AMOXICILLIN Inactive ZITHROMAX Z-MARTI 250 MG TABS 2 today, then 1 daily for 4 days ZITHROMAX Z-MARTI 250 MG TABS 079787 AZITHROMYCIN Inactive BACTRIM DS 800-160 MG TAB 1 tab by mouth twice daily BACTRIM DS 800-160 MG TAB 920324 TRIMETHOPRIM-SULFAMETHOXAZOLE Inactive AUGMENTIN 500-125 MG TAB Take 1 capsule by mouth three times a day X 10 days AUGMENTIN 500-125 MG TAB 855065 AMOXICILLIN-POT CLAVULANATE Inactive MACROBID 100 MG ORAL CAPS Take one by mouth daily MACROBID 100 MG ORAL CAPS 9925640 NITROFURANTOIN MONOHYD MACRO Inactive Immunizations Vaccine Administration Date Value Standard Description Seasonal influenza vaccine, injectable, containing preservative, for > 3 years old (Afluria, FluLaval, Fluzone, Fluvirin, Fluarix, Agriflu(>=18 yo)) Fluzone (>3 yrs.) [[id number]] Influenza, seasonal, injectable Vital Signs Date Name [...] Range Description Lab Report: C-REACTIVE PROTEIN, HIV-1/2 Agn/[place]/38757, Drug Abuse Pnl 10 ... - Chemistry rapid plasma reagin antibody titer NON-REACTIVE NON-REACTIVE Lab Report: C-REACTIVE PROTEIN, HIV-1/2 Agn/[place]/62113, Drug Abuse Pnl 10 ... - Lab chlamydia DNA probe NOT DETECTED NOT DETECTED Lab Report: C-REACTIVE PROTEIN, HIV-1/2 Agn/[place]/91297, Drug Abuse Pnl 10 ... - Microbiology Neisseria gonorrhoeae DNA probe NOT DETECTED NOT DETECTED Lab Report: CBC W/DIFF, Comp. Metabolic Panel, Free Thyroxine (L), Thyro ... - Chemistry sodium, serum 138 mmol/L 103-477 1342/09/12 carbon dioxide, venous blood 29.9 mmol/L 21.0-32.0 [...] 5.0-8.5 Encounters Code Encounter Date Provider Facility CPT-07908 Level 4 Est. Patient 22:21:42 CDT Dorothy Ayala [facility] CPT-80325 Level 4 Est. Patient 21:18:20 CDT Dorothy Ayala [facility] CPT-97811 Level 3 Est. Patient 10:06:58 CDT Dorothy Ayala [facility] CPT-65885 Level 3 Est. Patient 09:36:26 CDT Dorothy Ayala [facility] CPT-49663 Level 3 Est. Patient 16:55:26 CDT Cayetano Skinner MD [facility] CPT-52198 Level 2 Est. Patient 11:28:42 CDT Kimberly Brown MD [facility] CPT-21465 Level 3 Est. Patient 15:04:35 CDT Cayetano Skinner MD [facility] CPT-23148 Level 3 Est. Patient 15:07:05 CHILDCARE WORKER Cayetano Skinner MD [facility] CPT-47119 Level 3 Est. Patient 09:56:19 CDT Connie Lockecarmen HAMILTON [facility] CPT-81647 Level 3 Est. Patient 12:31:18 CHILDCARE WORKER Jensen Santiago MD [facility] CPT-11181 Level 3 Est. Patient 10:35:02 CHILDCARE WORKER Cayetano Skinner MD [facility] CPT-19774 Level 3 Est. Patient 12:50:08 CHILDCARE WORKER Cayetano Skinner MD [facility] Procedures Code Procedure Name Date Entry Date Standard Description CPT-14190 Venipuncture Draw Fee 10:10:37 CDT CPT-88471 [facility] - [facility] 10:06:58 CDT CPT-95529 Bladder Scan 19:49:06 CHILDCARE WORKER CPT-92917 Spec Collection and Handling Fee 11:57:40 CDT CPT-J1020 Depo Medrol 60 mg (Methyl Prednisolone Acetate) 12:03:49 CDT CPT-70461 Abx/Therapy Injection 12:03:48 CDT CPT-J1020 Depo Medrol 60 mg (Methyl Prednisolone Acetate) 09:56:19 CDT CPT-28719 Spec Collection and Handling Fee 12:10:42 CDT CPT-PV Prev. Care Visit 12:10:42 CDT CPT-27970 Administration single or combination vaccine inc oral 16:45:52 CHILDCARE WORKER CPT-83992 Influenza split virus > age 3 16:45:52 CHILDCARE WORKER CPT-49061 Spec Collection and Handling Fee 10:35:02 CHILDCARE WORKER
--- OUTSIDE RECORDS SUMMARY | 2019-04-22 10:57 | XMS REPORT | Clinical Summary ---
Author Author Admin, [employer] Organization [facility] Address Unknown Phone Unavailable Allergies, Adverse [...] disorder, not elsewhere classified Pruritus 698.9 Active Casperllina Derrelll [employer] [place] Unspecified pruritic disorder Urticaria 708.9 Active Dorothy Ayala APRN Unspecified urticaria Hepatitis C 070.70 Active Dorothy Ayala APRN Unspecified viral hepatitis C without hepatic coma DEPRESSION ICD-311 Inactive Cayetano Skinner MD FH [...] 1 tab po q am RANITIDINE HCL 50559395712 Active Jillina Frazell [employer] [place] Active ZYRTEC ALLERGY 10 MG CAPS 1 po am CETIRIZINE HCL 27678082274 Active Jillina Frazell [employer] [place] Active PREDNISONE 20 MG TAB 2 tabs daily for 4 days, 1 tab daily for 4 days, /2 tab daily for 4 days PREDNISONE 72502155503 Active Dorothy Scotttamara [place] Active VENLAFAXINE HCL 75 MG ORAL TABS 1.5 po BID VENLAFAXINE HCL 26606662884 Active Cayetano Skinner MD Active TRAZODONE HCL 100 MG ORAL TABS 0.5 to 1 po qHS PRN Insomnia TRAZODONE HCL 02884994852 Active Cayetano Skinenr MD Active SERTRALINE HCL 100 MG ORAL TABS 2 po qd SERTRALINE HCL 95521021088 No Longer Active Cayetano Skinner MD Active MACROBID CAPS 1 cap po qd. NITROFURANTOIN MONOHYD MACRO CAPS 70325850185 No Longer Active Kimberly Brown MD Active SUBOXONE 8-2 MG SL FILM 1 1/2 STRIPS QD BUPRENORPHINE HCL-NALOXONE HCL 26326798632 Active Cayetano Skinner MD Active CIPRO 500 MG TAB 1 tablet by mouth twice daily CIPROFLOXACIN HCL 76618914848 No Longer Active Cayetano Skinner MD Active MACROBID 100 MG ORAL CAPS Take one by mouth daily NITROFURANTOIN MONOHYD MACRO 29826279406 No Longer Active Kimberly Brown MD Active SUBOXONE 8-2 MG SUBL 2 po qd BUPRENORPHINE HCL-NALOXONE HCL 35507631532 No Longer Active Kimberly Brown MD Active HYDROCORTISONE 2.5 % EXT CREA Apply three times a day to affected area HYDROCORTISONE 37330392956 No Longer Active Kimberly Brown MD Active AUGMENTIN 500-125 MG TAB Take 1 capsule by mouth three times a day X 10 days AMOXICILLIN-POT CLAVULANATE 08864314055 No Longer Active Connie Reyes APRN Active BACTRIM DS 800-160 MG TAB 1 tab by mouth twice daily TRIMETHOPRIM-SULFAMETHOXAZOLE 50118326525 No Longer Active Cayetano Skinner MD Active ZITHROMAX Z-MARTI 250 MG TABS 2 today, then 1 daily for 4 days AZITHROMYCIN 92772667783 No Longer Active Jensen Santiago MD Active CETIRIZINE HCL 10 MG TABS ONE DAILY CETIRIZINE HCL 05043609457 No Longer Active Jensen Santiago MD Active KLONOPIN 1 MG TAB 1/2 tab bid CLONAZEPAM 52844556899 No Longer Active Jensen Santiago MD Active ZOLPIDEM TARTRATE 10 MG TABS 1 q hs as needed for sleep ZOLPIDEM TARTRATE 24591915660 No Longer Active Jensen Santiago MD Active CELEXA 40 MG TABS Take one by mouth daily CITALOPRAM HYDROBROMIDE 34578103970 No Longer Active Jensen Santiago MD Active AMOXICILLIN 875 MG TABS 1 tab by mouth twice daily AMOXICILLIN 06620411070 No Longer Active Cayetano Skinner MD Active FLAGYL 500 MG TAB 1 tablet by mouth two times daily METRONIDAZOLE 45861946772 No Longer Active Cayetano Skinner MD Active FLAGYL 500 MG TAB 1 tablet by mouth two times daily METRONIDAZOLE 32724906654 No Longer Active Cayetano Skinner MD Active BUSPIRONE HCL 15 MG TABS 1/2 PO BID BUSPIRONE HCL 32611210011 No Longer Active Cayetano Skinner MD Active BUSPIRONE HCL 15 MG TABS 1/2 PO BID BUSPIRONE HCL 15 MG TABS 211021 BUSPIRONE HCL Inactive CELEXA 40 MG TABS Take one by mouth daily CELEXA 40 MG TABS 947626 CITALOPRAM HYDROBROMIDE Inactive ZOLPIDEM TARTRATE 10 MG TABS 1 q hs as needed for sleep ZOLPIDEM TARTRATE 10 MG TABS 200332 ZOLPIDEM TARTRATE Inactive KLONOPIN 1 MG TAB 1/2 tab bid KLONOPIN 1 MG TAB 764078 CLONAZEPAM Inactive CETIRIZINE HCL 10 MG TABS ONE DAILY CETIRIZINE HCL 10 MG TABS 4389679 CETIRIZINE HCL Inactive HYDROCORTISONE 2.5 % EXT CREA Apply three times a day to affected area HYDROCORTISONE 2.5 % EXT CREA 904313 HYDROCORTISONE Inactive SUBOXONE 8-2 MG SUBL 2 po qd SUBOXONE 8-2 MG SUBL BUPRENORPHINE HCL-NALOXONE HCL Inactive CIPRO 500 MG TAB 1 tablet by mouth twice daily CIPRO 500 MG TAB 031579 CIPROFLOXACIN HCL Inactive MACROBID CAPS 1 cap po qd. MACROBID CAPS NITROFURANTOIN MONOHYD MACRO CAPS Inactive FLAGYL 500 MG TAB 1 tablet by mouth two times daily FLAGYL 500 MG TAB 343062 METRONIDAZOLE Inactive FLAGYL 500 MG TAB 1 tablet by mouth two times daily FLAGYL 500 MG TAB 601184 METRONIDAZOLE Inactive AMOXICILLIN 875 MG TABS 1 tab by mouth twice daily AMOXICILLIN 875 MG TABS 878800 AMOXICILLIN Inactive ZITHROMAX Z-MARTI 250 MG TABS 2 today, then 1 daily for 4 days ZITHROMAX Z-MARTI 250 MG TABS 3030154 AZITHROMYCIN Inactive BACTRIM DS 800-160 MG TAB 1 tab by mouth twice daily BACTRIM DS 800-160 MG TAB 651245 TRIMETHOPRIM-SULFAMETHOXAZOLE Inactive AUGMENTIN 500-125 MG TAB Take 1 capsule by mouth three times a day X 10 days AUGMENTIN 500-125 MG TAB 173739 AMOXICILLIN-POT CLAVULANATE Inactive MACROBID 100 MG ORAL CAPS Take one by mouth daily MACROBID 100 MG ORAL CAPS 3527087 NITROFURANTOIN MONOHYD MACRO Inactive Immunizations Vaccine Administration Date Value Standard Description Seasonal influenza vaccine, injectable, containing preservative, for > 3 years old (Afluria, FluLaval, Fluzone, Fluvirin, Fluarix, Agriflu(>=18 yo)) Fluzone (>3 yrs.) [[id number]] Influenza, seasonal, injectable Vital Signs Date Name [...] Range Description Lab Report: C-REACTIVE PROTEIN, HIV-1/2 Agn/[place]/45730, Drug Abuse Pnl 10 ... - Chemistry rapid plasma reagin antibody titer NON-REACTIVE NON-REACTIVE Lab Report: C-REACTIVE PROTEIN, HIV-1/2 Agn/[place]/60215, Drug Abuse Pnl 10 ... - Lab chlamydia DNA probe NOT DETECTED NOT DETECTED Lab Report: C-REACTIVE PROTEIN, HIV-1/2 Agn/[place]/83413, Drug Abuse Pnl 10 ... - Microbiology Neisseria gonorrhoeae DNA probe NOT DETECTED NOT DETECTED Lab Report: CBC W/DIFF, Comp. Metabolic Panel, Free Thyroxine (L), Thyro ... - Chemistry sodium, serum 138 mmol/L 759-633 7233/09/12 carbon dioxide, venous blood 29.9 mmol/L 21.0-32.0 [...] 5.0-8.5 Encounters Code Encounter Date Provider Facility CPT-09641 Level 4 Est. Patient 22:21:42 CDT Dorothy Ayala [facility] CPT-27216 Level 4 Est. Patient 21:18:20 CDT Dorothy Ayala [facility] CPT-21089 Level 3 Est. Patient 10:06:58 CDT Dorothy Dovesegun [facility] CPT-03849 Level 3 Est. Patient 09:36:26 CDT Dorothy Ayala [facility] CPT-78745 Level 3 Est. Patient 16:55:26 CDT Cayetano Skinner MD [facility] CPT-74130 Level 2 Est. Patient 11:28:42 CDT Kimberly Brown MD [facility] CPT-25291 Level 3 Est. Patient 15:04:35 CDT Cayetano Skinner MD [facility] CPT-13266 Level 3 Est. Patient 15:07:05 BOG WORKER Cayetano Skinner MD [facility] CPT-26504 Level 3 Est. Patient 09:56:19 CDT Connie Reyes [facility] CPT-87087 Level 3 Est. Patient 12:31:18 BOG WORKER Jensen Santiago MD [facility] CPT-17284 Level 3 Est. Patient 10:35:02 BOG WORKER Cayetano Skinner MD [facility] CPT-87245 Level 3 Est. Patient 12:50:08 BOG WORKER Cayetano Skinner MD [facility] Procedures Code Procedure Name Date Entry Date Standard Description CPT-69149 Venipuncture Draw Fee 10:10:37 CDT CPT-56613 [facility] - [facility] 10:06:58 CDT CPT-91714 Bladder Scan 19:49:06 BOG WORKER CPT-71186 Spec Collection and Handling Fee 11:57:40 CDT CPT-J1020 Depo Medrol 60 mg (Methyl Prednisolone Acetate) 12:03:49 CDT CPT-59724 Abx/Therapy Injection 12:03:48 CDT CPT-J1020 Depo Medrol 60 mg (Methyl Prednisolone Acetate) 09:56:19 CDT CPT-50710 Spec Collection and Handling Fee 12:10:42 CDT CPT-PV Prev. Care Visit 12:10:42 CDT CPT-75877 Administration single or combination vaccine inc oral 16:45:52 BOG WORKER CPT-38798 Influenza split virus > age 3 16:45:52 BOG WORKER CPT-67894 Spec Collection and Handling Fee 10:35:02 BOG WORKER
--- OUTSIDE RECORDS SUMMARY | 2019-04-22 10:58 | XMS REPORT | Clinical Summary ---
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 Unspecified pruritic disorder Urticaria 708.9 Active [...] 1 tab po q am RANITIDINE HCL 53816867889 Active Jillina Frazell [employer]ISTANT [employer] MANAGER Active ZYRTEC ALLERGY 10 MG CAPS 1 po am CETIRIZINE HCL 80436570568 Active Jillina Frazell ASSISTANT [employer]PA MANAGER Active PREDNISONE 20 MG TAB 2 tabs daily for 4 days, 1 tab daily for 4 days, /2 tab daily for 4 days PREDNISONE 43186821315 Active Dorothy Scotttamara [place] Active VENLAFAXINE HCL 75 MG ORAL TABS 1.5 po BID VENLAFAXINE HCL 87369116008 Active Cayetano Skinner MD Active TRAZODONE HCL 100 MG ORAL TABS 0.5 to 1 po qHS PRN Insomnia TRAZODONE HCL 37748666816 Active Cayetano Skinner MD Active SERTRALINE HCL 100 MG ORAL TABS 2 po qd SERTRALINE HCL 12010119933 No Longer Active Cayetano Skinner MD Active MACROBID CAPS 1 cap po qd. NITROFURANTOIN MONOHYD MACRO CAPS 32734754283 No Longer Active Kimberly Brown MD Active SUBOXONE 8-2 MG SL FILM 1 1/2 STRIPS QD BUPRENORPHINE HCL-NALOXONE HCL 90458805241 Active Cayetano Skinner MD Active CIPRO 500 MG TAB 1 tablet by mouth twice daily CIPROFLOXACIN HCL 80825668515 No Longer Active Cayetano Skinner MD Active MACROBID 100 MG ORAL CAPS Take one by mouth daily NITROFURANTOIN MONOHYD MACRO 05888201932 No Longer Active Kimberly Brown MD Active SUBOXONE 8-2 MG SUBL 2 po qd BUPRENORPHINE HCL-NALOXONE HCL 61800394333 No Longer Active Kimberly Brown MD Active HYDROCORTISONE 2.5 % EXT CREA Apply three times a day to affected area HYDROCORTISONE 34665250598 No Longer Active Kimberly Brown MD Active AUGMENTIN 500-125 MG TAB Take 1 capsule by mouth three times a day X 10 days AMOXICILLIN-POT CLAVULANATE 85987235208 No Longer Active Connie Reyes APRN Active BACTRIM DS 800-160 MG TAB 1 tab by mouth twice daily TRIMETHOPRIM-SULFAMETHOXAZOLE 76285595651 No Longer Active Cayetano Skinner MD Active ZITHROMAX Z-MARTI 250 MG TABS 2 today, then 1 daily for 4 days AZITHROMYCIN 23070991737 No Longer Active Jensen Santiago MD Active CETIRIZINE HCL 10 MG TABS ONE DAILY CETIRIZINE HCL 55686265120 No Longer Active Jensen Santiago MD Active KLONOPIN 1 MG TAB 1/2 tab bid CLONAZEPAM 08752731155 No Longer Active Jensen Santiago MD Active ZOLPIDEM TARTRATE 10 MG TABS 1 q hs as needed for sleep ZOLPIDEM TARTRATE 29960340259 No Longer Active Jensen Santiago MD Active CELEXA 40 MG TABS Take one by mouth daily CITALOPRAM HYDROBROMIDE 31507446387 No Longer Active Jensen Santiago MD Active AMOXICILLIN 875 MG TABS 1 tab by mouth twice daily AMOXICILLIN 84911207979 No Longer Active Cayetano Skinner MD Active FLAGYL 500 MG TAB 1 tablet by mouth two times daily METRONIDAZOLE 83857521588 No Longer Active Cayetano Skinner MD Active FLAGYL 500 MG TAB 1 tablet by mouth two times daily METRONIDAZOLE 15532334204 No Longer Active Cayetano Skinner MD Active BUSPIRONE HCL 15 MG TABS 1/2 PO BID BUSPIRONE HCL 86187460187 No Longer Active Cayetano Skinner MD Active BUSPIRONE HCL 15 MG TABS 1/2 PO BID BUSPIRONE HCL 15 MG TABS 529673 BUSPIRONE HCL Inactive CELEXA 40 MG TABS Take one by mouth daily CELEXA 40 MG TABS 589012 CITALOPRAM HYDROBROMIDE Inactive ZOLPIDEM TARTRATE 10 MG TABS 1 q hs as needed for sleep ZOLPIDEM TARTRATE 10 MG TABS 150955 ZOLPIDEM TARTRATE Inactive KLONOPIN 1 MG TAB 1/2 tab bid KLONOPIN 1 MG TAB 671026 CLONAZEPAM Inactive CETIRIZINE HCL 10 MG TABS ONE DAILY CETIRIZINE HCL 10 MG TABS 8898143 CETIRIZINE HCL Inactive HYDROCORTISONE 2.5 % EXT CREA Apply three times a day to affected area HYDROCORTISONE 2.5 % EXT CREA 779992 HYDROCORTISONE Inactive SUBOXONE 8-2 MG SUBL 2 po qd SUBOXONE 8-2 MG SUBL BUPRENORPHINE HCL-NALOXONE HCL Inactive CIPRO 500 MG TAB 1 tablet by mouth twice daily CIPRO 500 MG TAB 828464 CIPROFLOXACIN HCL Inactive MACROBID CAPS 1 cap po qd. MACROBID CAPS NITROFURANTOIN MONOHYD MACRO CAPS Inactive FLAGYL 500 MG TAB 1 tablet by mouth two times daily FLAGYL 500 MG TAB 694102 METRONIDAZOLE Inactive FLAGYL 500 MG TAB 1 tablet by mouth two times daily FLAGYL 500 MG TAB 119614 METRONIDAZOLE Inactive AMOXICILLIN 875 MG TABS 1 tab by mouth twice daily AMOXICILLIN 875 MG TABS 876028 AMOXICILLIN Inactive ZITHROMAX Z-MARTI 250 MG TABS 2 today, then 1 daily for 4 days ZITHROMAX Z-MARTI 250 MG TABS 4413551 AZITHROMYCIN Inactive BACTRIM DS 800-160 MG TAB 1 tab by mouth twice daily BACTRIM DS 800-160 MG TAB 342356 TRIMETHOPRIM-SULFAMETHOXAZOLE Inactive AUGMENTIN 500-125 MG TAB Take 1 capsule by mouth three times a day X 10 days AUGMENTIN 500-125 MG TAB 335974 AMOXICILLIN-POT CLAVULANATE Inactive MACROBID 100 MG ORAL CAPS Take one by mouth daily MACROBID 100 MG ORAL CAPS 5359330 NITROFURANTOIN MONOHYD MACRO Inactive Immunizations Vaccine Administration Date Value Standard Description Seasonal influenza vaccine, injectable, containing preservative, for > 3 years old (Afluria, FluLaval, Fluzone, Fluvirin, Fluarix, Agriflu(>=18 yo)) Fluzone (>3 yrs.) [[id number]] Influenza, seasonal, injectable Vital Signs Date Name [...] Range Description Lab Report: C-REACTIVE PROTEIN, HIV-1/2 Agn/[place]/43595, Drug Abuse Pnl 10 ... - Chemistry rapid plasma reagin antibody titer NON-REACTIVE NON-REACTIVE Lab Report: C-REACTIVE PROTEIN, HIV-1/2 Agn/[place]/85571, Drug Abuse Pnl 10 ... - Lab chlamydia DNA probe NOT DETECTED NOT DETECTED Lab Report: C-REACTIVE PROTEIN, HIV-1/2 Agn/[place]/21182, Drug Abuse Pnl 10 ... - Microbiology Neisseria gonorrhoeae DNA probe NOT DETECTED NOT DETECTED Lab Report: CBC W/DIFF, Comp. Metabolic Panel, Free Thyroxine (L), Thyro ... - Chemistry sodium, serum 138 mmol/L 929-946 0737/09/12 carbon dioxide, venous blood 29.9 mmol/L 21.0-32.0 [...] 5.0-8.5 Encounters Code Encounter Date Provider Facility CPT-67403 Level 4 Est. Patient 22:21:42 CDT Dorothy Ayala [facility] CPT-36113 Level 4 Est. Patient 21:18:20 CDT Dorothy Ayala [facility] CPT-46123 Level 3 Est. Patient 10:06:58 CDT Dorothy Dovesegun [facility] CPT-88988 Level 3 Est. Patient 09:36:26 CDT Dorothy Ayala [facility] CPT-62890 Level 3 Est. Patient 16:55:26 CDT Cayetano Skinner MD [facility] CPT-81087 Level 2 Est. Patient 11:28:42 CDT Kimberly Brown MD [facility] CPT-04798 Level 3 Est. Patient 15:04:35 CDT Cayetano Skinner MD [facility] CPT-64883 Level 3 Est. Patient 15:07:05 AIR POLLUTION SPECIALIST Cayetano Skinner MD [facility] CPT-20209 Level 3 Est. Patient 09:56:19 CDT Connie Reyes [facility] CPT-41556 Level 3 Est. Patient 12:31:18 AIR POLLUTION SPECIALIST Jensen Santiago MD [facility] CPT-11475 Level 3 Est. Patient 10:35:02 AIR POLLUTION SPECIALIST Cayetano Skinner MD [facility] CPT-87996 Level 3 Est. Patient 12:50:08 AIR POLLUTION SPECIALIST Cayetano Skinner MD [facility] Procedures Code Procedure Name Date Entry Date Standard Description CPT-38889 Venipuncture Draw Fee 10:10:37 CDT CPT-67167 [facility] - [facility] 10:06:58 CDT CPT-86882 Bladder Scan 19:49:06 AIR POLLUTION SPECIALIST CPT-02893 Spec Collection and Handling Fee 11:57:40 CDT CPT-J1020 Depo Medrol 60 mg (Methyl Prednisolone Acetate) 12:03:49 CDT CPT-27990 Abx/Therapy Injection 12:03:48 CDT CPT-J1020 Depo Medrol 60 mg (Methyl Prednisolone Acetate) 09:56:19 CDT CPT-10049 Spec Collection and Handling Fee 12:10:42 CDT CPT-PV Prev. Care Visit 12:10:42 CDT CPT-28924 Administration single or combination vaccine inc oral 16:45:52 AIR POLLUTION SPECIALIST CPT-12792 Influenza split virus > age 3 16:45:52 AIR POLLUTION SPECIALIST CPT-25494 Spec Collection and Handling Fee 10:35:02 AIR POLLUTION SPECIALIST
--- OUTSIDE RECORDS SUMMARY | 2019-04-22 10:58 | XMS REPORT | Clinical Summary ---
Author Author Admin, [place] Organization [facility] Address Unknown Phone Unavailable Allergies, Adverse [...] a day X 10 days AMOXICILLIN-POT CLAVULANATE 82838985649 Active Connie Reyes APRN Active BACTRIM DS 800-160 MG TAB 1 tab by mouth twice daily TRIMETHOPRIM-SULFAMETHOXAZOLE 39930435195 No Longer Active Cayetano Skinner MD Active HYDROCORTISONE 2.5 % EXT CREA Apply three times a day to affected area HYDROCORTISONE 76996540075 Active Melinda Yochris [place] Active ZITHROMAX Z-MARTI 250 MG TABS 2 today, then 1 daily for 4 days AZITHROMYCIN 16192640871 No Longer Active Jensen Santiago MD Active SUBOXONE 8-2 MG SUBL 2 po qd BUPRENORPHINE HCL-NALOXONE HCL 23171505058 Active Jensen Santiago MD Active CETIRIZINE HCL 10 MG TABS ONE DAILY CETIRIZINE HCL 95749763826 No Longer Active Jensen Santiago MD Active KLONOPIN 1 MG TAB 1/2 tab bid CLONAZEPAM 55883003820 No Longer Active Jensen Santiago MD Active ZOLPIDEM TARTRATE 10 MG TABS 1 q hs as needed for sleep ZOLPIDEM TARTRATE 29255860463 No Longer Active Jensen Santiago MD Active CELEXA 40 MG TABS Take one by mouth daily CITALOPRAM HYDROBROMIDE 24875935524 No Longer Active Jensen Santiago MD Active AMOXICILLIN 875 MG TABS 1 tab by mouth twice daily AMOXICILLIN 62001049784 No Longer Active Cayetano Skinner MD Active FLAGYL 500 MG TAB 1 tablet by mouth two times daily METRONIDAZOLE 39488413974 No Longer Active Cayetano Skinner MD Active FLAGYL 500 MG TAB 1 tablet by mouth two times daily METRONIDAZOLE 68343005838 No Longer Active Cayetano Skinner MD Active BUSPIRONE HCL 15 MG TABS 1/2 PO BID BUSPIRONE HCL 81795757467 No Longer Active Cayetano Skinner MD Active BUSPIRONE HCL 15 MG TABS 1/2 PO BID BUSPIRONE HCL 15 MG TABS 182534 BUSPIRONE HCL Inactive CELEXA 40 MG TABS Take one by mouth daily CELEXA 40 MG TABS 220979 CITALOPRAM HYDROBROMIDE Inactive ZOLPIDEM TARTRATE 10 MG TABS 1 q hs as needed for sleep ZOLPIDEM TARTRATE 10 MG TABS 489983 ZOLPIDEM TARTRATE Inactive KLONOPIN 1 MG TAB 1/2 tab bid KLONOPIN 1 MG TAB 021929 CLONAZEPAM Inactive CETIRIZINE HCL 10 MG TABS ONE DAILY CETIRIZINE HCL 10 MG TABS 1450167 CETIRIZINE HCL Inactive FLAGYL 500 MG TAB 1 tablet by mouth two times daily FLAGYL 500 MG TAB 348882 METRONIDAZOLE Inactive FLAGYL 500 MG TAB 1 tablet by mouth two times daily FLAGYL 500 MG TAB 355626 METRONIDAZOLE Inactive AMOXICILLIN 875 MG TABS 1 tab by mouth twice daily AMOXICILLIN 875 MG TABS 563499 AMOXICILLIN Inactive ZITHROMAX Z-MARTI 250 MG TABS 2 today, then 1 daily for 4 days ZITHROMAX Z-MARTI 250 MG TABS 1849153 AZITHROMYCIN Inactive BACTRIM DS 800-160 MG TAB 1 tab by mouth twice daily BACTRIM DS 800-160 MG TAB 562895 TRIMETHOPRIM-SULFAMETHOXAZOLE Inactive Immunizations Vaccine Administration Date Value Standard Description Seasonal influenza vaccine, injectable, containing preservative, for > 3 years old (Afluria, FluLaval, Fluzone, Fluvirin, Fluarix, Agriflu(>=18 yo)) Fluzone (>3 yrs.) [[id number]] Influenza, seasonal, injectable Vital Signs Date Name [...] 5.0-8.5 Encounters Code Encounter Date Provider Facility CPT-40962 Level 3 Est. Patient 09:56:19 CDT Connie Reyes APRN [facility] CPT-95719 Level 3 Est. Patient 12:31:18 ICT SALES REPRESENTATIVE Jensen Santiago MD [facility] CPT-63478 Level 3 Est. Patient 10:35:02 ICT SALES REPRESENTATIVE Cayetano Skinner MD [facility] CPT-31333 Level 3 Est. Patient 12:50:08 ICT SALES REPRESENTATIVE Cayetano Skinner MD [facility] Procedures Code Procedure Name Date Entry Date Standard Description CPT-J1020 Depo Medrol 60 mg (Methyl Prednisolone Acetate) 12:03:49 CDT CPT-37119 Abx/Therapy Injection 12:03:48 CDT CPT-J1020 Depo Medrol 60 mg (Methyl Prednisolone Acetate) 09:56:19 CDT CPT-57017 Spec Collection and Handling Fee 12:10:42 CDT CPT-PV Prev. Care Visit 12:10:42 CDT CPT-66803 Administration single or combination vaccine inc oral 16:45:52 ICT SALES REPRESENTATIVE CPT-01131 Influenza split virus > age 3 16:45:52 ICT SALES REPRESENTATIVE CPT-00278 Spec Collection and Handling Fee 10:35:02 ICT SALES REPRESENTATIVE
--- OUTSIDE RECORDS SUMMARY | 2019-04-22 10:59 | XMS REPORT | Clinical Summary ---
Author Author Admin, [employer] Organization 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 Unspecified pruritic disorder Urticaria 708.9 Active Dorothy Ayala HYDRAULIC BLOCKER Unspecified urticaria Hepatitis C 070.70 Active Dorothy [...] 1 po qHS PRN Insomnia TRAZODONE HCL 67250838850 Active Joanne Molina RMA Active LUNESTA 1 MG ORAL TABS 1 po qHS PRN Insomnia ESZOPICLONE 76203373960 No Longer Active Joanne Molina RMA Active ZANTAC 150 MG TAB 1 tab po q am RANITIDINE HCL 44348530754 Active Dorothy Ayala HYDRAULIC BLOCKER Active ZYRTEC ALLERGY 10 MG CAPS 1 po am CETIRIZINE HCL 03753301227 Active Casperllvishal Scottmichellel HYDRAULIC BLOCKER Active PREDNISONE 20 MG TAB 2 tabs daily for 4 days, 1 tab daily for 4 days, 1/2 tab daily for 4 days PREDNISONE 59063633969 Active Caspersb Ayala APRN Active VENLAFAXINE HCL 75 MG ORAL TABS 1.5 po BID VENLAFAXINE HCL 15325417497 Active Cayetano Skinner MD Active TRAZODONE HCL 100 MG ORAL TABS 0.5 to 1 po qHS PRN Insomnia TRAZODONE HCL 80871390777 No Longer Active Cayetano Skinner MD Active SERTRALINE HCL 100 MG ORAL TABS 2 po qd SERTRALINE HCL 03802955329 No Longer Active Cayetano Skinner MD Active MACROBID CAPS 1 cap po qd. NITROFURANTOIN MONOHYD MACRO CAPS 57337201737 No Longer Active Kimberly Brown MD Active SUBOXONE 8-2 MG SL FILM 1 1/2 STRIPS QD BUPRENORPHINE HCL-NALOXONE HCL 13737412940 Active Cayetano Skinner MD Active CIPRO 500 MG TAB 1 tablet by mouth twice daily CIPROFLOXACIN HCL 12332325850 No Longer Active Cayetano Skinner MD Active MACROBID 100 MG ORAL CAPS Take one by mouth daily NITROFURANTOIN MONOHYD MACRO 28054308837 No Longer Active Kimberly Brown MD Active SUBOXONE 8-2 MG SUBL 2 po qd BUPRENORPHINE HCL-NALOXONE HCL 15414455844 No Longer Active Kimberly Brown MD Active HYDROCORTISONE 2.5 % EXT CREA Apply three times a day to affected area HYDROCORTISONE 56661164291 No Longer Active Kimberly Brown MD Active AUGMENTIN 500-125 MG TAB Take 1 capsule by mouth three times a day X 10 days AMOXICILLIN-POT CLAVULANATE 10860539292 No Longer Active Connie Reyes APRN Active BACTRIM DS 800-160 MG TAB 1 tab by mouth twice daily TRIMETHOPRIM-SULFAMETHOXAZOLE 86058360595 No Longer Active Cayetano Skinner MD Active ZITHROMAX Z-MARTI 250 MG TABS 2 today, then 1 daily for 4 days AZITHROMYCIN 51405483590 No Longer Active Jensen Santiago MD Active CETIRIZINE HCL 10 MG TABS ONE DAILY CETIRIZINE HCL 28691130964 No Longer Active Jensen Santiago MD Active KLONOPIN 1 MG TAB 1/2 tab bid CLONAZEPAM 55719203062 No Longer Active Jensen Santiago MD Active ZOLPIDEM TARTRATE 10 MG TABS 1 q hs as needed for sleep ZOLPIDEM TARTRATE 08514082010 No Longer Active Jensen Santiago MD Active CELEXA 40 MG TABS Take one by mouth daily CITALOPRAM HYDROBROMIDE 80914850034 No Longer Active Jensen Santiago MD Active AMOXICILLIN 875 MG TABS 1 tab by mouth twice daily AMOXICILLIN 09441827386 No Longer Active Cayetano Skinner MD Active FLAGYL 500 MG TAB 1 tablet by mouth two times daily METRONIDAZOLE 28199109533 No Longer Active Cayetano Skinner MD Active FLAGYL 500 MG TAB 1 tablet by mouth two times daily METRONIDAZOLE 25989615639 No Longer Active Cayetano Skinner MD Active BUSPIRONE HCL 15 MG TABS 1/2 PO BID BUSPIRONE HCL 19603188764 No Longer Active Cayetano Skinner MD Active BUSPIRONE HCL 15 MG TABS 1/2 PO BID BUSPIRONE HCL 15 MG TABS 107941 BUSPIRONE HCL Inactive CELEXA 40 MG TABS Take one by mouth daily CELEXA 40 MG TABS 987935 CITALOPRAM HYDROBROMIDE Inactive ZOLPIDEM TARTRATE 10 MG TABS 1 q hs as needed for sleep ZOLPIDEM TARTRATE 10 MG TABS 664391 ZOLPIDEM TARTRATE Inactive KLONOPIN 1 MG TAB 1/2 tab bid KLONOPIN 1 MG TAB 660024 CLONAZEPAM Inactive CETIRIZINE HCL 10 MG TABS ONE DAILY CETIRIZINE HCL 10 MG TABS 4733145 CETIRIZINE HCL Inactive HYDROCORTISONE 2.5 % EXT CREA Apply three times a day to affected area HYDROCORTISONE 2.5 % EXT CREA 274005 HYDROCORTISONE Inactive SUBOXONE 8-2 MG SUBL 2 po qd SUBOXONE 8-2 MG SUBL BUPRENORPHINE HCL-NALOXONE HCL Inactive CIPRO 500 MG TAB 1 tablet by mouth twice daily CIPRO 500 MG TAB 262202 CIPROFLOXACIN HCL Inactive MACROBID CAPS 1 cap po qd. MACROBID CAPS NITROFURANTOIN MONOHYD MACRO CAPS Inactive LUNESTA 1 MG ORAL TABS 1 po qHS PRN Insomnia LUNESTA 1 MG ORAL TABS 123533 ESZOPICLONE Inactive FLAGYL 500 MG TAB 1 tablet by mouth two times daily FLAGYL 500 MG TAB 457189 METRONIDAZOLE Inactive FLAGYL 500 MG TAB 1 tablet by mouth two times daily FLAGYL 500 MG TAB 709046 METRONIDAZOLE Inactive AMOXICILLIN 875 MG TABS 1 tab by mouth twice daily AMOXICILLIN 875 MG TABS 352354 AMOXICILLIN Inactive ZITHROMAX Z-MARTI 250 MG TABS 2 today, then 1 daily for 4 days ZITHROMAX Z-MARTI 250 MG TABS 366722 AZITHROMYCIN Inactive BACTRIM DS 800-160 MG TAB 1 tab by mouth twice daily BACTRIM DS 800-160 MG TAB 778973 TRIMETHOPRIM-SULFAMETHOXAZOLE Inactive AUGMENTIN 500-125 MG TAB Take 1 capsule by mouth three times a day X 10 days AUGMENTIN 500-125 MG TAB 984808 AMOXICILLIN-POT CLAVULANATE Inactive MACROBID 100 MG ORAL CAPS Take one by mouth daily MACROBID 100 MG ORAL CAPS 0594376 NITROFURANTOIN MONOHYD MACRO Inactive Immunizations Vaccine Administration Date Value Standard Description Seasonal influenza vaccine, injectable, containing preservative, for > 3 years old (Afluria, FluLaval, Fluzone, Fluvirin, Fluarix, Agriflu(>=18 yo)) Fluzone (>3 yrs.) [[id number]] Influenza, seasonal, injectable Vital Signs Date Name [...] Range Description Lab Report: C-REACTIVE PROTEIN, HIV-1/2 Agn/[place]/44619, Drug Abuse Pnl 10 ... - Chemistry rapid plasma reagin antibody titer NON-REACTIVE NON-REACTIVE Lab Report: C-REACTIVE PROTEIN, HIV-1/2 Agn/[place]/32578, Drug Abuse Pnl 10 ... - Lab chlamydia DNA probe NOT DETECTED NOT DETECTED Lab Report: C-REACTIVE PROTEIN, HIV-1/2 Agn/[place]/42531, Drug Abuse Pnl 10 ... - Microbiology Neisseria gonorrhoeae DNA probe NOT DETECTED NOT DETECTED Lab Report: CBC W/DIFF, Comp. Metabolic Panel, Free Thyroxine (L), Thyro ... - Chemistry sodium, serum 138 mmol/L 724-977 0028/09/12 carbon dioxide, venous blood 29.9 mmol/L 21.0-32.0 [...] 5.0-8.5 Encounters Code Encounter Date Provider Facility CPT-96000 Level 4 Est. Patient 22:21:42 CDT Dorothy Ayala [facility] CPT-59266 Level 4 Est. Patient 21:18:20 CDT Dorothy Ayala [facility] CPT-05069 Level 3 Est. Patient 10:06:58 CDT Dorothy Ayala [facility] CPT-83847 Level 3 Est. Patient 09:36:26 CDT Dorothy Ayala [facility] CPT-64638 Level 3 Est. Patient 16:55:26 CDT Cayetano Skinner MD [facility] CPT-60967 Level 2 Est. Patient 11:28:42 CDT Kimberly Brown MD [facility] CPT-48862 Level 3 Est. Patient 15:04:35 CDT Cayetano Skinner MD [facility] CPT-47774 Level 3 Est. Patient 15:07:05 FIBERGLASS PRODUCT TESTER Cayetano Skinner MD [facility] CPT-06233 Level 3 Est. Patient 09:56:19 CDT Connie Lockecarmen [place] [facility] CPT-70987 Level 3 Est. Patient 12:31:18 FIBERGLASS PRODUCT TESTER Jensen Santiago MD [facility] CPT-51070 Level 3 Est. Patient 10:35:02 FIBERGLASS PRODUCT TESTER Cayetano Skinner MD [facility] CPT-02217 Level 3 Est. Patient 12:50:08 FIBERGLASS PRODUCT TESTER Cayetano Skinner MD [facility] Procedures Code Procedure Name Date Entry Date Standard Description CPT-78239 Venipuncture Draw Fee 10:10:37 CDT CPT-75844 [facility] - [facility] 10:06:58 CDT CPT-37053 Bladder Scan 19:49:06 FIBERGLASS PRODUCT TESTER CPT-21187 Spec Collection and Handling Fee 11:57:40 CDT CPT-J1020 Depo Medrol 60 mg (Methyl Prednisolone Acetate) 12:03:49 CDT CPT-14610 Abx/Therapy Injection 12:03:48 CDT CPT-J1020 Depo Medrol 60 mg (Methyl Prednisolone Acetate) 09:56:19 CDT CPT-19311 Spec Collection and Handling Fee 12:10:42 CDT CPT-PV Prev. Care Visit 12:10:42 CDT CPT-90280 Administration single or combination vaccine inc oral 16:45:52 FIBERGLASS PRODUCT TESTER CPT-89731 Influenza split virus > age 3 16:45:52 FIBERGLASS PRODUCT TESTER CPT-56005 Spec Collection and Handling Fee 10:35:02 FIBERGLASS PRODUCT TESTER
--- OUTSIDE RECORDS SUMMARY | 2019-04-22 10:59 | XMS REPORT | Clinical Summary ---
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 Unspecified pruritic disorder Urticaria 708.9 Active Dorothy [...] Cayetano Skinner MD Sinusitis, acute ICD-461.9 Inactive Cayeatno Skinner MD Pre-employment exam ICD-V70.5 Inactive Cayetano Skinner MD Medication List Medication Instructions Start Date Stop Date Generic Name NDC Status Provider Patient Instruction ZANTAC 150 MG TAB 1 tab po q am RANITIDINE HCL 29394409970 Active Jillina Frazell TUFT MACHINE OPERATOR Active ZYRTEC ALLERGY 10 MG CAPS 1 po am CETIRIZINE HCL 75377584889 Active Jillina Frazell TUFT MACHINE OPERATOR Active PREDNISONE 20 MG TAB 2 tabs daily for 4 days, 1 tab daily for 4 days, /2 tab daily for 4 days PREDNISONE 76175123741 Active Dorothy Scotttamara [place] Active VENLAFAXINE HCL 75 MG ORAL TABS 1.5 po BID VENLAFAXINE HCL 86241225663 Active Cayetano Skinner MD Active TRAZODONE HCL 100 MG ORAL TABS 0.5 to 1 po qHS PRN Insomnia TRAZODONE HCL 76861705025 Active Cayetano Skinner MD Active SERTRALINE HCL 100 MG ORAL TABS 2 po qd SERTRALINE HCL 62300604301 No Longer Active Cayetano Skinner MD Active MACROBID CAPS 1 cap po qd. NITROFURANTOIN MONOHYD MACRO CAPS 66646335211 No Longer Active Kimberly Brown MD Active SUBOXONE 8-2 MG SL FILM 1 1/2 STRIPS QD BUPRENORPHINE HCL-NALOXONE HCL 96870373834 Active Cayetano Skinner MD Active CIPRO 500 MG TAB 1 tablet by mouth twice daily CIPROFLOXACIN HCL 20668359658 No Longer Active Cayetano Skinner MD Active MACROBID 100 MG ORAL CAPS Take one by mouth daily NITROFURANTOIN MONOHYD MACRO 60545894319 No Longer Active Kimberly Brown MD Active SUBOXONE 8-2 MG SUBL 2 po qd BUPRENORPHINE HCL-NALOXONE HCL 64519258483 No Longer Active Kimberly Brown MD Active HYDROCORTISONE 2.5 % EXT CREA Apply three times a day to affected area HYDROCORTISONE 59059206438 No Longer Active Kimberly Brown MD Active AUGMENTIN 500-125 MG TAB Take 1 capsule by mouth three times a day X 10 days AMOXICILLIN-POT CLAVULANATE 01576703270 No Longer Active Connie Reyes APRN Active BACTRIM DS 800-160 MG TAB 1 tab by mouth twice daily TRIMETHOPRIM-SULFAMETHOXAZOLE 56057346180 No Longer Active Cayetano Skinner MD Active ZITHROMAX Z-MARTI 250 MG TABS 2 today, then 1 daily for 4 days AZITHROMYCIN 95008385660 No Longer Active Jensen Santiago MD Active CETIRIZINE HCL 10 MG TABS ONE DAILY CETIRIZINE HCL 07565660702 No Longer Active Jensen Santiago MD Active KLONOPIN 1 MG TAB 1/2 tab bid CLONAZEPAM 75546483897 No Longer Active Jensen Santiago MD Active ZOLPIDEM TARTRATE 10 MG TABS 1 q hs as needed for sleep ZOLPIDEM TARTRATE 40844718836 No Longer Active Jensen Santiago MD Active CELEXA 40 MG TABS Take one by mouth daily CITALOPRAM HYDROBROMIDE 80331998875 No Longer Active Jensen Santiago MD Active AMOXICILLIN 875 MG TABS 1 tab by mouth twice daily AMOXICILLIN 59935343653 No Longer Active Cayetano Skinner MD Active FLAGYL 500 MG TAB 1 tablet by mouth two times daily METRONIDAZOLE 36937766837 No Longer Active Cayetano Skinner MD Active FLAGYL 500 MG TAB 1 tablet by mouth two times daily METRONIDAZOLE 00284975343 No Longer Active Cayetano Skinner MD Active BUSPIRONE HCL 15 MG TABS 1/2 PO BID BUSPIRONE HCL 49711921904 No Longer Active Cayetano Skinner MD Active BUSPIRONE HCL 15 MG TABS 1/2 PO BID BUSPIRONE HCL 15 MG TABS 899764 BUSPIRONE HCL Inactive CELEXA 40 MG TABS Take one by mouth daily CELEXA 40 MG TABS 196205 CITALOPRAM HYDROBROMIDE Inactive ZOLPIDEM TARTRATE 10 MG TABS 1 q hs as needed for sleep ZOLPIDEM TARTRATE 10 MG TABS 097721 ZOLPIDEM TARTRATE Inactive KLONOPIN 1 MG TAB 1/2 tab bid KLONOPIN 1 MG TAB 850092 CLONAZEPAM Inactive CETIRIZINE HCL 10 MG TABS ONE DAILY CETIRIZINE HCL 10 MG TABS 1758466 CETIRIZINE HCL Inactive HYDROCORTISONE 2.5 % EXT CREA Apply three times a day to affected area HYDROCORTISONE 2.5 % EXT CREA 096835 HYDROCORTISONE Inactive SUBOXONE 8-2 MG SUBL 2 po qd SUBOXONE 8-2 MG SUBL BUPRENORPHINE HCL-NALOXONE HCL Inactive CIPRO 500 MG TAB 1 tablet by mouth twice daily CIPRO 500 MG TAB 923572 CIPROFLOXACIN HCL Inactive MACROBID CAPS 1 cap po qd. MACROBID CAPS NITROFURANTOIN MONOHYD MACRO CAPS Inactive FLAGYL 500 MG TAB 1 tablet by mouth two times daily FLAGYL 500 MG TAB 254575 METRONIDAZOLE Inactive FLAGYL 500 MG TAB 1 tablet by mouth two times daily FLAGYL 500 MG TAB 977916 METRONIDAZOLE Inactive AMOXICILLIN 875 MG TABS 1 tab by mouth twice daily AMOXICILLIN 875 MG TABS 287770 AMOXICILLIN Inactive ZITHROMAX Z-MARTI 250 MG TABS 2 today, then 1 daily for 4 days ZITHROMAX Z-MARTI 250 MG TABS 0156181 AZITHROMYCIN Inactive BACTRIM DS 800-160 MG TAB 1 tab by mouth twice daily BACTRIM DS 800-160 MG TAB 511099 TRIMETHOPRIM-SULFAMETHOXAZOLE Inactive AUGMENTIN 500-125 MG TAB Take 1 capsule by mouth three times a day X 10 days AUGMENTIN 500-125 MG TAB 555816 AMOXICILLIN-POT CLAVULANATE Inactive MACROBID 100 MG ORAL CAPS Take one by mouth daily MACROBID 100 MG ORAL CAPS 5632640 NITROFURANTOIN MONOHYD MACRO Inactive Immunizations Vaccine Administration Date Value Standard Description Seasonal influenza vaccine, injectable, containing preservative, for > 3 years old (Afluria, FluLaval, Fluzone, Fluvirin, Fluarix, Agriflu(>=18 yo)) Fluzone (>3 yrs.) [[id number]] Influenza, seasonal, injectable Vital Signs Date Name [...] Range Description Lab Report: C-REACTIVE PROTEIN, HIV-1/2 Agn/[place]/94402, Drug Abuse Pnl 10 ... - Chemistry rapid plasma reagin antibody titer NON-REACTIVE NON-REACTIVE Lab Report: C-REACTIVE PROTEIN, HIV-1/2 Agn/[place]/41337, Drug Abuse Pnl 10 ... - Lab chlamydia DNA probe NOT DETECTED NOT DETECTED Lab Report: C-REACTIVE PROTEIN, HIV-1/2 Agn/[place]/00746, Drug Abuse Pnl 10 ... - Microbiology Neisseria gonorrhoeae DNA probe NOT DETECTED NOT DETECTED Lab Report: CBC W/DIFF, Comp. Metabolic Panel, Free Thyroxine (L), Thyro ... - Chemistry sodium, serum 138 mmol/L 708-919 5529/09/12 carbon dioxide, venous blood 29.9 mmol/L 21.0-32.0 [...] 5.0-8.5 Encounters Code Encounter Date Provider Facility CPT-42673 Level 4 Est. Patient 22:21:42 CDT Caspersb Tylertamara [facility] CPT-58016 Level 4 Est. Patient 21:18:20 CDT Caspervishal Tylertamara [facility] CPT-43315 Level 3 Est. Patient 10:06:58 CDT Caspervishal Tylertamara [facility] CPT-86062 Level 3 Est. Patient 09:36:26 CDT Dorothy Ayala [facility] CPT-72693 Level 3 Est. Patient 16:55:26 CDT Cayetano Skinner MD [facility] CPT-53519 Level 2 Est. Patient 11:28:42 CDT Kimberly Brown MD [facility] CPT-17270 Level 3 Est. Patient 15:04:35 CDT Cayetano Skinner MD [facility] CPT-46785 Level 3 Est. Patient 15:07:05 DANCE CHOREOGRAPHER Cayetano Skinner MD [facility] CPT-69732 Level 3 Est. Patient 09:56:19 CDT Connie Reyes [facility] CPT-75039 Level 3 Est. Patient 12:31:18 DANCE CHOREOGRAPHER Jensen Santiago MD [facility] CPT-46308 Level 3 Est. Patient 10:35:02 DANCE CHOREOGRAPHER Cayetano Skinner MD [facility] CPT-32714 Level 3 Est. Patient 12:50:08 DANCE CHOREOGRAPHER Cayetano Skinner MD [facility] Procedures Code Procedure Name Date Entry Date Standard Description CPT-18277 Venipuncture Draw Fee 10:10:37 CDT CPT-86557 AFP - [facility] 10:06:58 CDT CPT-96547 Bladder Scan 19:49:06 DANCE CHOREOGRAPHER CPT-16580 Spec Collection and Handling Fee 11:57:40 CDT CPT-J1020 Depo Medrol 60 mg (Methyl Prednisolone Acetate) 12:03:49 CDT CPT-88087 Abx/Therapy Injection 12:03:48 CDT CPT-J1020 Depo Medrol 60 mg (Methyl Prednisolone Acetate) 09:56:19 CDT CPT-19261 Spec Collection and Handling Fee 12:10:42 CDT CPT-PV Prev. Care Visit 12:10:42 CDT CPT-68110 Administration single or combination vaccine inc oral 16:45:52 DANCE CHOREOGRAPHER CPT-41100 Influenza split virus > age 3 16:45:52 DANCE CHOREOGRAPHER CPT-13377 Spec Collection and Handling Fee 10:35:02 DANCE CHOREOGRAPHER
--- OUTSIDE RECORDS SUMMARY | 2019-04-22 11:00 | XMS REPORT | Clinical Summary ---
Author Author Admin, [employer] Organization [employer] Address Unknown Phone Unavailable Allergies, Adverse Reactions, [...] days, then 1 po qd SERTRALINE HCL 56108405751 Active Cayetano Skinner MD Active SUBOXONE 8-2 MG SL FILM 1 1/2 STRIPS QD BUPRENORPHINE HCL-NALOXONE HCL 43669313173 Active Cayetano Skinner MD Active CIPRO 500 MG TAB 1 tablet by mouth twice daily CIPROFLOXACIN HCL 23841818517 No Longer Active Cayetano Skinner MD Active MACROBID 100 MG ORAL CAPS Take one by mouth daily NITROFURANTOIN MONOHYD MACRO 63885604646 No Longer Active Kimberly Brown MD Active SUBOXONE 8-2 MG SUBL 2 po qd BUPRENORPHINE HCL-NALOXONE HCL 04869623229 No Longer Active Kimberly Brown MD Active HYDROCORTISONE 2.5 % EXT CREA Apply three times a day to affected area HYDROCORTISONE 32062254888 No Longer Active Kimberly Brown MD Active AUGMENTIN 500-125 MG TAB Take 1 capsule by mouth three times a day X 10 days AMOXICILLIN-POT CLAVULANATE 01225938443 No Longer Active Connie Reyes APRN Active BACTRIM DS 800-160 MG TAB 1 tab by mouth twice daily TRIMETHOPRIM-SULFAMETHOXAZOLE 36201285864 No Longer Active Cayetano Skinner MD Active ZITHROMAX Z-MARTI 250 MG TABS 2 today, then 1 daily for 4 days AZITHROMYCIN 54094498870 No Longer Active Jensen Santiago MD Active CETIRIZINE HCL 10 MG TABS ONE DAILY CETIRIZINE HCL 39177260166 No Longer Active Jensen Santiago MD Active KLONOPIN 1 MG TAB 1/2 tab bid CLONAZEPAM 85295839416 No Longer Active Jensen Santiago MD Active ZOLPIDEM TARTRATE 10 MG TABS 1 q hs as needed for sleep ZOLPIDEM TARTRATE 82097043265 No Longer Active Jensen Santiago MD Active CELEXA 40 MG TABS Take one by mouth daily CITALOPRAM HYDROBROMIDE 70116322506 No Longer Active Jensen Santiago MD Active AMOXICILLIN 875 MG TABS 1 tab by mouth twice daily AMOXICILLIN 90225476778 No Longer Active Cayetano Skinner MD Active FLAGYL 500 MG TAB 1 tablet by mouth two times daily METRONIDAZOLE 54152203614 No Longer Active Cayetano Skinner MD Active FLAGYL 500 MG TAB 1 tablet by mouth two times daily METRONIDAZOLE 58443654111 No Longer Active Cayetano Skinner MD Active BUSPIRONE HCL 15 MG TABS 1/2 PO BID BUSPIRONE HCL 03662518327 No Longer Active Cayetano Skinner MD Active BUSPIRONE HCL 15 MG TABS 1/2 PO BID BUSPIRONE HCL 15 MG TABS 867701 BUSPIRONE HCL Inactive CELEXA 40 MG TABS Take one by mouth daily CELEXA 40 MG TABS 383919 CITALOPRAM HYDROBROMIDE Inactive ZOLPIDEM TARTRATE 10 MG TABS 1 q hs as needed for sleep ZOLPIDEM TARTRATE 10 MG TABS 168976 ZOLPIDEM TARTRATE Inactive KLONOPIN 1 MG TAB 1/2 tab bid KLONOPIN 1 MG TAB 916652 CLONAZEPAM Inactive CETIRIZINE HCL 10 MG TABS ONE DAILY CETIRIZINE HCL 10 MG TABS 9170852 CETIRIZINE HCL Inactive HYDROCORTISONE 2.5 % EXT CREA Apply three times a day to affected area HYDROCORTISONE 2.5 % EXT CREA 333222 HYDROCORTISONE Inactive SUBOXONE 8-2 MG SUBL 2 po qd SUBOXONE 8-2 MG SUBL BUPRENORPHINE HCL-NALOXONE HCL Inactive CIPRO 500 MG TAB 1 tablet by mouth twice daily CIPRO 500 MG TAB 216544 CIPROFLOXACIN HCL Inactive FLAGYL 500 MG TAB 1 tablet by mouth two times daily FLAGYL 500 MG TAB 780841 METRONIDAZOLE Inactive FLAGYL 500 MG TAB 1 tablet by mouth two times daily FLAGYL 500 MG TAB 270500 METRONIDAZOLE Inactive AMOXICILLIN 875 MG TABS 1 tab by mouth twice daily AMOXICILLIN 875 MG TABS 846733 AMOXICILLIN Inactive ZITHROMAX Z-MARTI 250 MG TABS 2 today, then 1 daily for 4 days ZITHROMAX Z-MARTI 250 MG TABS 4755069 AZITHROMYCIN Inactive BACTRIM DS 800-160 MG TAB 1 tab by mouth twice daily BACTRIM DS 800-160 MG TAB 069913 TRIMETHOPRIM-SULFAMETHOXAZOLE Inactive AUGMENTIN 500-125 MG TAB Take 1 capsule by mouth three times a day X 10 days AUGMENTIN 500-125 MG TAB 559111 AMOXICILLIN-POT CLAVULANATE Inactive MACROBID 100 MG ORAL CAPS Take one by mouth daily MACROBID 100 MG ORAL CAPS 1231130 NITROFURANTOIN MONOHYD MACRO Inactive Immunizations Vaccine Administration Date Value Standard Description Seasonal influenza vaccine, injectable, containing preservative, for > 3 years old (Afluria, FluLaval, Fluzone, Fluvirin, Fluarix, Agriflu(>=18 yo)) Fluzone (>3 yrs.) [[id number]] Influenza, seasonal, injectable Vital Signs Date Name [...] Measured Encounters Code Encounter Date Provider Facility CPT-45339 Level 3 Est. Patient 15:07:05 DOCUMENT COORDINATOR Cayetano Skinner MD [facility] CPT-52217 Level 3 Est. Patient 09:56:19 CDT Connie Lockecarmen [place] [facility] CPT-81494 Level 3 Est. Patient 12:31:18 DOCUMENT COORDINATOR Jensen Santiago MD [facility] CPT-24194 Level 3 Est. Patient 10:35:02 DOCUMENT COORDINATOR Cayetano Skinner MD [facility] CPT-14278 Level 3 Est. Patient 12:50:08 DOCUMENT COORDINATOR Cayetano Skinner MD [facility] Procedures Code Procedure Name Date Entry Date Standard Description CPT-10755 Bladder Scan 19:49:06 DOCUMENT COORDINATOR CPT-50352 Spec Collection and Handling Fee 11:57:40 CDT CPT-J1020 Depo Medrol 60 mg (Methyl Prednisolone Acetate) 12:03:49 CDT CPT-54166 Abx/Therapy Injection 12:03:48 CDT CPT-J1020 Depo Medrol 60 mg (Methyl Prednisolone Acetate) 09:56:19 CDT CPT-92968 Spec Collection and Handling Fee 12:10:42 CDT CPT-PV Prev. Care Visit 12:10:42 CDT CPT-95051 Administration single or combination vaccine inc oral 16:45:52 DOCUMENT COORDINATOR CPT-89202 Influenza split virus > age 3 16:45:52 DOCUMENT COORDINATOR CPT-64373 Spec Collection and Handling Fee 10:35:02 DOCUMENT COORDINATOR
--- OUTSIDE RECORDS SUMMARY | 2019-04-22 11:00 | XMS REPORT | Clinical Summary ---
Author Author Admin, [place] Organization [employer] Address Unknown Phone Unavailable Allergies, Adverse Reactions, [...] elsewhere classified Pruritus 698.9 Active Jillina Frazell SALES VICE PRESIDENT Unspecified pruritic disorder Urticaria 708.9 Active Jillina Frazell SALES VICE PRESIDENT Unspecified urticaria DEPRESSION ICD-311 Inactive Cayetano Skinner [...] 1 tab po q am RANITIDINE HCL 93391595051 Active Jillina Frazell SALES VICE PRESIDENT Active ZYRTEC ALLERGY 10 MG CAPS 1 po am CETIRIZINE HCL 55720522428 Active Jillina Frazell SALES VICE PRESIDENT Active PREDNISONE 20 MG TAB 2 tabs daily for 4 days, 1 tab daily for 4 days, 1/2 tab daily for 4 days PREDNISONE 56858668446 Active Jillina Frazell SALES VICE PRESIDENT Active VENLAFAXINE HCL 75 MG ORAL TABS 1.5 po BID VENLAFAXINE HCL 75092045890 Active Cayetano Skinner MD Active TRAZODONE HCL 100 MG ORAL TABS 0.5 to 1 po qHS PRN Insomnia TRAZODONE HCL 36944977189 Active Cayetano Skinner MD Active SERTRALINE HCL 100 MG ORAL TABS 2 po qd SERTRALINE HCL 89023168882 No Longer Active Cayetano Skinner MD Active MACROBID CAPS 1 cap po qd. NITROFURANTOIN MONOHYD MACRO CAPS 29042806122 No Longer Active Kimberly Brown MD Active SUBOXONE 8-2 MG SL FILM 1 1/2 STRIPS QD BUPRENORPHINE HCL-NALOXONE HCL 55292211048 Active Cayetano Skinner MD Active CIPRO 500 MG TAB 1 tablet by mouth twice daily CIPROFLOXACIN HCL 84539274001 No Longer Active Cayetano Skinner MD Active MACROBID 100 MG ORAL CAPS Take one by mouth daily NITROFURANTOIN MONOHYD MACRO 02722982890 No Longer Active Kimberly Brown MD Active SUBOXONE 8-2 MG SUBL 2 po qd BUPRENORPHINE HCL-NALOXONE HCL 35536680695 No Longer Active Kimberly Brown MD Active HYDROCORTISONE 2.5 % EXT CREA Apply three times a day to affected area HYDROCORTISONE 47050424297 No Longer Active Kimberly Brown MD Active AUGMENTIN 500-125 MG TAB Take 1 capsule by mouth three times a day X 10 days AMOXICILLIN-POT CLAVULANATE 73576330860 No Longer Active Connie Reyes APRN Active BACTRIM DS 800-160 MG TAB 1 tab by mouth twice daily TRIMETHOPRIM-SULFAMETHOXAZOLE 33270026410 No Longer Active Cayetano Skinner MD Active ZITHROMAX Z-MARTI 250 MG TABS 2 today, then 1 daily for 4 days AZITHROMYCIN 43342410521 No Longer Active Jensen Santiago MD Active CETIRIZINE HCL 10 MG TABS ONE DAILY CETIRIZINE HCL 13052234951 No Longer Active Jensen Santiago MD Active KLONOPIN 1 MG TAB 1/2 tab bid CLONAZEPAM 85040579512 No Longer Active Jensen Santiago MD Active ZOLPIDEM TARTRATE 10 MG TABS 1 q hs as needed for sleep ZOLPIDEM TARTRATE 96339537690 No Longer Active Jensen Santiago MD Active CELEXA 40 MG TABS Take one by mouth daily CITALOPRAM HYDROBROMIDE 40189646989 No Longer Active Jensen Santiago MD Active AMOXICILLIN 875 MG TABS 1 tab by mouth twice daily AMOXICILLIN 00212916556 No Longer Active Cayetano Skinner MD Active FLAGYL 500 MG TAB 1 tablet by mouth two times daily METRONIDAZOLE 19320947062 No Longer Active Cayetano Skinner MD Active FLAGYL 500 MG TAB 1 tablet by mouth two times daily METRONIDAZOLE 64755887547 No Longer Active Cayetano Skinner MD Active BUSPIRONE HCL 15 MG TABS 1/2 PO BID BUSPIRONE HCL 40352420020 No Longer Active Cayetano Skinner MD Active BUSPIRONE HCL 15 MG TABS 1/2 PO BID BUSPIRONE HCL 15 MG TABS 897782 BUSPIRONE HCL Inactive CELEXA 40 MG TABS Take one by mouth daily CELEXA 40 MG TABS 101934 CITALOPRAM HYDROBROMIDE Inactive ZOLPIDEM TARTRATE 10 MG TABS 1 q hs as needed for sleep ZOLPIDEM TARTRATE 10 MG TABS 990610 ZOLPIDEM TARTRATE Inactive KLONOPIN 1 MG TAB 1/2 tab bid KLONOPIN 1 MG TAB 228684 CLONAZEPAM Inactive CETIRIZINE HCL 10 MG TABS ONE DAILY CETIRIZINE HCL 10 MG TABS 1693513 CETIRIZINE HCL Inactive HYDROCORTISONE 2.5 % EXT CREA Apply three times a day to affected area HYDROCORTISONE 2.5 % EXT CREA 924823 HYDROCORTISONE Inactive SUBOXONE 8-2 MG SUBL 2 po qd SUBOXONE 8-2 MG SUBL BUPRENORPHINE HCL-NALOXONE HCL Inactive CIPRO 500 MG TAB 1 tablet by mouth twice daily CIPRO 500 MG TAB 517726 CIPROFLOXACIN HCL Inactive MACROBID CAPS 1 cap po qd. MACROBID CAPS NITROFURANTOIN MONOHYD MACRO CAPS Inactive FLAGYL 500 MG TAB 1 tablet by mouth two times daily FLAGYL 500 MG TAB 358053 METRONIDAZOLE Inactive FLAGYL 500 MG TAB 1 tablet by mouth two times daily FLAGYL 500 MG TAB 573665 METRONIDAZOLE Inactive AMOXICILLIN 875 MG TABS 1 tab by mouth twice daily AMOXICILLIN 875 MG TABS 258331 AMOXICILLIN Inactive ZITHROMAX Z-MARTI 250 MG TABS 2 today, then 1 daily for 4 days ZITHROMAX Z-MARTI 250 MG TABS 0361840 AZITHROMYCIN Inactive BACTRIM DS 800-160 MG TAB 1 tab by mouth twice daily BACTRIM DS 800-160 MG TAB 844286 TRIMETHOPRIM-SULFAMETHOXAZOLE Inactive AUGMENTIN 500-125 MG TAB Take 1 capsule by mouth three times a day X 10 days AUGMENTIN 500-125 MG TAB 989670 AMOXICILLIN-POT CLAVULANATE Inactive MACROBID 100 MG ORAL CAPS Take one by mouth daily MACROBID 100 MG ORAL CAPS 3068263 NITROFURANTOIN MONOHYD MACRO Inactive Immunizations Vaccine Administration Date Value Standard Description Seasonal influenza vaccine, injectable, containing preservative, for > 3 years old (Afluria, FluLaval, Fluzone, Fluvirin, Fluarix, Agriflu(>=18 yo)) Fluzone (>3 yrs.) [[id number]] Influenza, seasonal, injectable Vital Signs Date Name [...] ... - Chemistry sodium, serum 138 mmol/L 187-769 7878/09/12 carbon dioxide, venous blood 29.9 mmol/L 21.0-32.0 [...] 142-424 Encounters Code Encounter Date Provider Facility CPT-71400 Level 3 Est. Patient 09:36:26 CDT Dorothy Ayala [facility] CPT-80427 Level 3 Est. Patient 16:55:26 CDT Cayetano Skinner MD [facility] CPT-96965 Level 2 Est. Patient 11:28:42 CDT Kimberly Brown MD [facility] CPT-79404 Level 3 Est. Patient 15:04:35 CDT Cayetano Skinner MD [facility] CPT-92537 Level 3 Est. Patient 15:07:05 INDUSTRIAL RELATIONS DIRECTOR Cayetano Skinner MD [facility] CPT-35274 Level 3 Est. Patient 09:56:19 CDT Connie Reyes [facility] [place] CPT-60516 Level 3 Est. Patient 12:31:18 INDUSTRIAL RELATIONS DIRECTOR Jensen Santiago MD [facility] CPT-20515 Level 3 Est. Patient 10:35:02 INDUSTRIAL RELATIONS DIRECTOR Cayetano Skinner MD [facility] CPT-55494 Level 3 Est. Patient 12:50:08 INDUSTRIAL RELATIONS DIRECTOR Cayetano Skinner MD [facility] Procedures Code Procedure Name Date Entry Date Standard Description CPT-49611 Bladder Scan 19:49:06 INDUSTRIAL RELATIONS DIRECTOR CPT-43115 Spec Collection and Handling Fee 11:57:40 CDT CPT-J1020 Depo Medrol 60 mg (Methyl Prednisolone Acetate) 12:03:49 CDT CPT-24871 Abx/Therapy Injection 12:03:48 CDT CPT-J1020 Depo Medrol 60 mg (Methyl Prednisolone Acetate) 09:56:19 CDT CPT-55307 Spec Collection and Handling Fee 12:10:42 CDT CPT-PV Prev. Care Visit 12:10:42 CDT CPT-83592 Administration single or combination vaccine inc oral 16:45:52 INDUSTRIAL RELATIONS DIRECTOR CPT-72756 Influenza split virus > age 3 16:45:52 INDUSTRIAL RELATIONS DIRECTOR CPT-58634 Spec Collection and Handling Fee 10:35:02 INDUSTRIAL RELATIONS DIRECTOR
--- OUTSIDE RECORDS SUMMARY | 2019-04-22 11:01 | XMS REPORT | Clinical Summary ---
Author Author Admin, [employer] Organization [facility] Address Unknown Phone Unavailable Allergies, Adverse Reactions, [...] days, then 1 po qd SERTRALINE HCL 00330592648 Active Cayetano Skinner MD Active SUBOXONE 8-2 MG SL FILM 1 1/2 STRIPS QD BUPRENORPHINE HCL-NALOXONE HCL 92116068157 Active Cayetano Skinner MD Active CIPRO 500 MG TAB 1 tablet by mouth twice daily CIPROFLOXACIN HCL 12411638135 No Longer Active Cayetano Skinner MD Active MACROBID 100 MG ORAL CAPS Take one by mouth daily NITROFURANTOIN MONOHYD MACRO 77210570074 Active Kimberly Brown MD Active SUBOXONE 8-2 MG SUBL 2 po qd BUPRENORPHINE HCL-NALOXONE HCL 47720375318 No Longer Active Kimberly Brown MD Active HYDROCORTISONE 2.5 % EXT CREA Apply three times a day to affected area HYDROCORTISONE 46505698447 No Longer Active Kimberly Brown MD Active AUGMENTIN 500-125 MG TAB Take 1 capsule by mouth three times a day X 10 days AMOXICILLIN-POT CLAVULANATE 94468192728 No Longer Active Connie Reyes APRN Active BACTRIM DS 800-160 MG TAB 1 tab by mouth twice daily TRIMETHOPRIM-SULFAMETHOXAZOLE 39399048365 No Longer Active Cayetano Skinner MD Active ZITHROMAX Z-MARTI 250 MG TABS 2 today, then 1 daily for 4 days AZITHROMYCIN 93138760349 No Longer Active Jensen Santiago MD Active CETIRIZINE HCL 10 MG TABS ONE DAILY CETIRIZINE HCL 08806271868 No Longer Active Jensen Santiago MD Active KLONOPIN 1 MG TAB 1/2 tab bid CLONAZEPAM 02790242052 No Longer Active Jensen Santiago MD Active ZOLPIDEM TARTRATE 10 MG TABS 1 q hs as needed for sleep ZOLPIDEM TARTRATE 77884522932 No Longer Active Jensen Santiago MD Active CELEXA 40 MG TABS Take one by mouth daily CITALOPRAM HYDROBROMIDE 76829865023 No Longer Active Jensen Santiago MD Active AMOXICILLIN 875 MG TABS 1 tab by mouth twice daily AMOXICILLIN 92763507200 No Longer Active Cayetano Skinner MD Active FLAGYL 500 MG TAB 1 tablet by mouth two times daily METRONIDAZOLE 45578286215 No Longer Active Cayetano Skinner MD Active FLAGYL 500 MG TAB 1 tablet by mouth two times daily METRONIDAZOLE 02341262779 No Longer Active Cayetano Skinner MD Active BUSPIRONE HCL 15 MG TABS 1/2 PO BID BUSPIRONE HCL 90162996266 No Longer Active Cayetano Skinner MD Active BUSPIRONE HCL 15 MG TABS 1/2 PO BID BUSPIRONE HCL 15 MG TABS 328263 BUSPIRONE HCL Inactive CELEXA 40 MG TABS Take one by mouth daily CELEXA 40 MG TABS 582531 CITALOPRAM HYDROBROMIDE Inactive ZOLPIDEM TARTRATE 10 MG TABS 1 q hs as needed for sleep ZOLPIDEM TARTRATE 10 MG TABS 679948 ZOLPIDEM TARTRATE Inactive KLONOPIN 1 MG TAB 1/2 tab bid KLONOPIN 1 MG TAB 218716 CLONAZEPAM Inactive CETIRIZINE HCL 10 MG TABS ONE DAILY CETIRIZINE HCL 10 MG TABS 4410563 CETIRIZINE HCL Inactive HYDROCORTISONE 2.5 % EXT CREA Apply three times a day to affected area HYDROCORTISONE 2.5 % EXT CREA 907948 HYDROCORTISONE Inactive SUBOXONE 8-2 MG SUBL 2 po qd SUBOXONE 8-2 MG SUBL BUPRENORPHINE HCL-NALOXONE HCL Inactive CIPRO 500 MG TAB 1 tablet by mouth twice daily CIPRO 500 MG TAB 610366 CIPROFLOXACIN HCL Inactive FLAGYL 500 MG TAB 1 tablet by mouth two times daily FLAGYL 500 MG TAB 823436 METRONIDAZOLE Inactive FLAGYL 500 MG TAB 1 tablet by mouth two times daily FLAGYL 500 MG TAB 852310 METRONIDAZOLE Inactive AMOXICILLIN 875 MG TABS 1 tab by mouth twice daily AMOXICILLIN 875 MG TABS 031835 AMOXICILLIN Inactive ZITHROMAX Z-MARTI 250 MG TABS 2 today, then 1 daily for 4 days ZITHROMAX Z-MARTI 250 MG TABS 7564990 AZITHROMYCIN Inactive BACTRIM DS 800-160 MG TAB 1 tab by mouth twice daily BACTRIM DS 800-160 MG TAB 423625 TRIMETHOPRIM-SULFAMETHOXAZOLE Inactive AUGMENTIN 500-125 MG TAB Take 1 capsule by mouth three times a day X 10 days AUGMENTIN 500-125 MG TAB 563937 AMOXICILLIN-POT CLAVULANATE Inactive Immunizations Vaccine Administration Date Value Standard Description Seasonal influenza vaccine, injectable, containing preservative, for > 3 years old (Afluria, FluLaval, Fluzone, Fluvirin, Fluarix, Agriflu(>=18 yo)) Fluzone (>3 yrs.) [[id number]] Influenza, seasonal, injectable Vital Signs Date Name [...] Measured Encounters Code Encounter Date Provider Facility CPT-53928 Level 3 Est. Patient 15:07:05 TRANSMISSION AND COORDINATION ENGINEER Cayetano Skinner MD [facility] CPT-56609 Level 3 Est. Patient 09:56:19 CDT Connie Reyes APRN [facility] CPT-47313 Level 3 Est. Patient 12:31:18 TRANSMISSION AND COORDINATION ENGINEER Jensen Santiago MD [facility] CPT-22209 Level 3 Est. Patient 10:35:02 TRANSMISSION AND COORDINATION ENGINEER Cayetano Skinner MD [facility] CPT-47582 Level 3 Est. Patient 12:50:08 TRANSMISSION AND COORDINATION ENGINEER Cayetano Skinner MD [facility] Procedures Code Procedure Name Date Entry Date Standard Description CPT-06207 Bladder Scan 19:49:06 TRANSMISSION AND COORDINATION ENGINEER CPT-88840 Spec Collection and Handling Fee 11:57:40 CDT CPT-J1020 Depo Medrol 60 mg (Methyl Prednisolone Acetate) 12:03:49 CDT CPT-56196 Abx/Therapy Injection 12:03:48 CDT CPT-J1020 Depo Medrol 60 mg (Methyl Prednisolone Acetate) 09:56:19 CDT CPT-60321 Spec Collection and Handling Fee 12:10:42 CDT CPT-PV Prev. Care Visit 12:10:42 CDT CPT-66463 Administration single or combination vaccine inc oral 16:45:52 TRANSMISSION AND COORDINATION ENGINEER CPT-74670 Influenza split virus > age 3 16:45:52 TRANSMISSION AND COORDINATION ENGINEER CPT-67783 Spec Collection and Handling Fee 10:35:02 TRANSMISSION AND COORDINATION ENGINEER
--- OUTSIDE RECORDS SUMMARY | 2019-04-22 11:01 | XMS REPORT | Clinical Summary ---
Author Author Admin, [place] Organization [employer] Address Unknown Phone Unavailable Allergies, Adverse Reactions, [...] days, then 1 po BID VENLAFAXINE HCL 87878474775 Active Cayetano Skinner MD Active SERTRALINE HCL 100 MG ORAL TABS 2 po qd SERTRALINE HCL 27340128488 No Longer Active Cayetano Skinner MD Active MACROBID CAPS 1 cap po qd. NITROFURANTOIN MONOHYD MACRO CAPS 41488665761 No Longer Active Kimberly Brown MD Active SUBOXONE 8-2 MG SL FILM 1 1/2 STRIPS QD BUPRENORPHINE HCL-NALOXONE HCL 82336288917 Active Cayetano Skinner MD Active CIPRO 500 MG TAB 1 tablet by mouth twice daily CIPROFLOXACIN HCL 48787990564 No Longer Active Cayetano Skinner MD Active MACROBID 100 MG ORAL CAPS Take one by mouth daily NITROFURANTOIN MONOHYD MACRO 32663883752 No Longer Active Kimberly Brown MD Active SUBOXONE 8-2 MG SUBL 2 po qd BUPRENORPHINE HCL-NALOXONE HCL 90632080263 No Longer Active Kimberly Brown MD Active HYDROCORTISONE 2.5 % EXT CREA Apply three times a day to affected area HYDROCORTISONE 52948955340 No Longer Active Kimberly Brown MD Active AUGMENTIN 500-125 MG TAB Take 1 capsule by mouth three times a day X 10 days AMOXICILLIN-POT CLAVULANATE 75590535248 No Longer Active Connie Reyes APRN Active BACTRIM DS 800-160 MG TAB 1 tab by mouth twice daily TRIMETHOPRIM-SULFAMETHOXAZOLE 54730916322 No Longer Active Cayetano Skinner MD Active ZITHROMAX Z-MARTI 250 MG TABS 2 today, then 1 daily for 4 days AZITHROMYCIN 75582754660 No Longer Active Jensen Santiago MD Active CETIRIZINE HCL 10 MG TABS ONE DAILY CETIRIZINE HCL 15032935776 No Longer Active Jensen Santiago MD Active KLONOPIN 1 MG TAB 1/2 tab bid CLONAZEPAM 85498857828 No Longer Active Jensen Santiago MD Active ZOLPIDEM TARTRATE 10 MG TABS 1 q hs as needed for sleep ZOLPIDEM TARTRATE 41886546113 No Longer Active Jensen Santiago MD Active CELEXA 40 MG TABS Take one by mouth daily CITALOPRAM HYDROBROMIDE 30550756885 No Longer Active Jensen Santiago MD Active AMOXICILLIN 875 MG TABS 1 tab by mouth twice daily AMOXICILLIN 57190324623 No Longer Active Cayetano Skinner MD Active FLAGYL 500 MG TAB 1 tablet by mouth two times daily METRONIDAZOLE 05860449150 No Longer Active Cayetano Skinner MD Active FLAGYL 500 MG TAB 1 tablet by mouth two times daily METRONIDAZOLE 99580217700 No Longer Active Cayetano Skinner MD Active BUSPIRONE HCL 15 MG TABS 1/2 PO BID BUSPIRONE HCL 44807735125 No Longer Active Cayetano Skniner MD Active BUSPIRONE HCL 15 MG TABS 1/2 PO BID BUSPIRONE HCL 15 MG TABS 745251 BUSPIRONE HCL Inactive CELEXA 40 MG TABS Take one by mouth daily CELEXA 40 MG TABS 181951 CITALOPRAM HYDROBROMIDE Inactive ZOLPIDEM TARTRATE 10 MG TABS 1 q hs as needed for sleep ZOLPIDEM TARTRATE 10 MG TABS 781237 ZOLPIDEM TARTRATE Inactive KLONOPIN 1 MG TAB 1/2 tab bid KLONOPIN 1 MG TAB 771923 CLONAZEPAM Inactive CETIRIZINE HCL 10 MG TABS ONE DAILY CETIRIZINE HCL 10 MG TABS 7305462 CETIRIZINE HCL Inactive HYDROCORTISONE 2.5 % EXT CREA Apply three times a day to affected area HYDROCORTISONE 2.5 % EXT CREA 307125 HYDROCORTISONE Inactive SUBOXONE 8-2 MG SUBL 2 po qd SUBOXONE 8-2 MG SUBL BUPRENORPHINE HCL-NALOXONE HCL Inactive CIPRO 500 MG TAB 1 tablet by mouth twice daily CIPRO 500 MG TAB 176132 CIPROFLOXACIN HCL Inactive MACROBID CAPS 1 cap po qd. MACROBID CAPS NITROFURANTOIN MONOHYD MACRO CAPS Inactive FLAGYL 500 MG TAB 1 tablet by mouth two times daily FLAGYL 500 MG TAB 037837 METRONIDAZOLE Inactive FLAGYL 500 MG TAB 1 tablet by mouth two times daily FLAGYL 500 MG TAB 324744 METRONIDAZOLE Inactive AMOXICILLIN 875 MG TABS 1 tab by mouth twice daily AMOXICILLIN 875 MG TABS 476790 AMOXICILLIN Inactive ZITHROMAX Z-MARTI 250 MG TABS 2 today, then 1 daily for 4 days ZITHROMAX Z-MARTI 250 MG TABS 2472326 AZITHROMYCIN Inactive BACTRIM DS 800-160 MG TAB 1 tab by mouth twice daily BACTRIM DS 800-160 MG TAB 627574 TRIMETHOPRIM-SULFAMETHOXAZOLE Inactive AUGMENTIN 500-125 MG TAB Take 1 capsule by mouth three times a day X 10 days AUGMENTIN 500-125 MG TAB 604631 AMOXICILLIN-POT CLAVULANATE Inactive MACROBID 100 MG ORAL CAPS Take one by mouth daily MACROBID 100 MG ORAL CAPS 5474773 NITROFURANTOIN MONOHYD MACRO Inactive Immunizations Vaccine Administration Date Value Standard Description Seasonal influenza vaccine, injectable, containing preservative, for > 3 years old (Afluria, FluLaval, Fluzone, Fluvirin, Fluarix, Agriflu(>=18 yo)) Fluzone (>3 yrs.) [[id number]] Influenza, seasonal, injectable Vital Signs Date Name [...] Measured Encounters Code Encounter Date Provider Facility CPT-45052 Level 3 Est. Patient 16:55:26 CDT Cayetano Sk[facility] CPT-87662 Level 2 Est. Patient 11:28:42 CDT Kimberly Brown [facility] CPT-13417 Level 3 Est. Patient 15:04:35 CDT Cayetano Skinner MD [facility] CPT-35632 Level 3 Est. Patient 15:07:05 VERIFICATION CLERK Cayetano Skinner MD [facility] CPT-67201 Level 3 Est. Patient 09:56:19 CDT Connie Reyes APRN [facility] CPT-67914 Level 3 Est. Patient 12:31:18 VERIFICATION CLERK Jesnen Snatiago MD [facility] CPT-98680 Level 3 Est. Patient 10:35:02 VERIFICATION CLERK Cayetano Skinner MD [facility] CPT-09859 Level 3 Est. Patient 12:50:08 VERIFICATION CLERK Cayetano Skinner MD [facility] Procedures Code Procedure Name Date Entry Date Standard Description CPT-94884 Bladder Scan 19:49:06 VERIFICATION CLERK CPT-51805 Spec Collection and Handling Fee 11:57:40 CDT CPT-J1020 Depo Medrol 60 mg (Methyl Prednisolone Acetate) 12:03:49 CDT CPT-56879 Abx/Therapy Injection 12:03:48 CDT CPT-J1020 Depo Medrol 60 mg (Methyl Prednisolone Acetate) 09:56:19 CDT CPT-21242 Spec Collection and Handling Fee 12:10:42 CDT CPT-PV Prev. Care Visit 12:10:42 CDT CPT-12016 Administration single or combination vaccine inc oral 16:45:52 VERIFICATION CLERK CPT-24984 Influenza split virus > age 3 16:45:52 VERIFICATION CLERK CPT-56968 Spec Collection and Handling Fee 10:35:02 VERIFICATION CLERK
--- OUTSIDE RECORDS SUMMARY | 2019-04-22 11:01 | XMS REPORT | Clinical Summary ---
Author Author Admin, [facility] Organization [facility] Address Unknown Phone Unavailable Allergies, Adverse [...] a day X 10 days AMOXICILLIN-POT CLAVULANATE 15339193514 No Longer Active Connie Reyes APRN Active BACTRIM DS 800-160 MG TAB 1 tab by mouth twice daily TRIMETHOPRIM-SULFAMETHOXAZOLE 20589689982 No Longer Active Cayetano Skinner MD Active HYDROCORTISONE 2.5 % EXT CREA Apply three times a day to affected area HYDROCORTISONE 49250151335 Active Melinda Baxter APRN Active ZITHROMAX Z-MARTI 250 MG TABS 2 today, then 1 daily for 4 days AZITHROMYCIN 61900217162 No Longer Active Jensen Santiago MD Active SUBOXONE 8-2 MG SUBL 2 po qd BUPRENORPHINE HCL-NALOXONE HCL 59032245015 Active Jensen Santiago MD Active CETIRIZINE HCL 10 MG TABS ONE DAILY CETIRIZINE HCL 16772078403 No Longer Active Jensen Santiago MD Active KLONOPIN 1 MG TAB 1/2 tab bid CLONAZEPAM 69193070766 No Longer Active Jensen Santiago MD Active ZOLPIDEM TARTRATE 10 MG TABS 1 q hs as needed for sleep ZOLPIDEM TARTRATE 22757333947 No Longer Active Jensen Santiago MD Active CELEXA 40 MG TABS Take one by mouth daily CITALOPRAM HYDROBROMIDE 90208223542 No Longer Active Jensen Santiago MD Active AMOXICILLIN 875 MG TABS 1 tab by mouth twice daily AMOXICILLIN 11264776748 No Longer Active Cayetano Skinner MD Active FLAGYL 500 MG TAB 1 tablet by mouth two times daily METRONIDAZOLE 24746921377 No Longer Active Cayetano Skinner MD Active FLAGYL 500 MG TAB 1 tablet by mouth two times daily METRONIDAZOLE 86535159571 No Longer Active Cayetano Skinner MD Active BUSPIRONE HCL 15 MG TABS 1/2 PO BID BUSPIRONE HCL 43529359117 No Longer Active Cayetano Skinner MD Active BUSPIRONE HCL 15 MG TABS 1/2 PO BID BUSPIRONE HCL 15 MG TABS 303690 BUSPIRONE HCL Inactive CELEXA 40 MG TABS Take one by mouth daily CELEXA 40 MG TABS 901925 CITALOPRAM HYDROBROMIDE Inactive ZOLPIDEM TARTRATE 10 MG TABS 1 q hs as needed for sleep ZOLPIDEM TARTRATE 10 MG TABS 859322 ZOLPIDEM TARTRATE Inactive KLONOPIN 1 MG TAB 1/2 tab bid KLONOPIN 1 MG TAB 612848 CLONAZEPAM Inactive CETIRIZINE HCL 10 MG TABS ONE DAILY CETIRIZINE HCL 10 MG TABS 0972720 CETIRIZINE HCL Inactive FLAGYL 500 MG TAB 1 tablet by mouth two times daily FLAGYL 500 MG TAB 443616 METRONIDAZOLE Inactive FLAGYL 500 MG TAB 1 tablet by mouth two times daily FLAGYL 500 MG TAB 990781 METRONIDAZOLE Inactive AMOXICILLIN 875 MG TABS 1 tab by mouth twice daily AMOXICILLIN 875 MG TABS 290813 AMOXICILLIN Inactive ZITHROMAX Z-MARTI 250 MG TABS 2 today, then 1 daily for 4 days ZITHROMAX Z-MARTI 250 MG TABS 0767708 AZITHROMYCIN Inactive BACTRIM DS 800-160 MG TAB 1 tab by mouth twice daily BACTRIM DS 800-160 MG TAB 273457 TRIMETHOPRIM-SULFAMETHOXAZOLE Inactive AUGMENTIN 500-125 MG TAB Take 1 capsule by mouth three times a day X 10 days AUGMENTIN 500-125 MG TAB 964335 AMOXICILLIN-POT CLAVULANATE Inactive Immunizations Vaccine Administration Date Value Standard Description Seasonal influenza vaccine, injectable, containing preservative, for > 3 years old (Afluria, FluLaval, Fluzone, Fluvirin, Fluarix, Agriflu(>=18 yo)) Fluzone (>3 yrs.) [[id number]] Influenza, seasonal, injectable Vital Signs Date Name [...] 5.0-8.5 Encounters Code Encounter Date Provider Facility CPT-54564 Level 3 Est. Patient 09:56:19 CDT Connie Amy HAMILTON [facility] CPT-19965 Level 3 Est. Patient 12:31:18 ELECTRONIC REPAIR TROUBLESHOOTER Jensen Santiago MD [facility] CPT-84926 Level 3 Est. Patient 10:35:02 ELECTRONIC REPAIR TROUBLESHOOTER Cayetano Skinner MD [facility] CPT-95205 Level 3 Est. Patient 12:50:08 ELECTRONIC REPAIR TROUBLESHOOTER Cayetano Skinner MD [facility] Procedures Code Procedure Name Date Entry Date Standard Description CPT-88119 Spec Collection and Handling Fee 11:57:40 CDT CPT-J1020 Depo Medrol 60 mg (Methyl Prednisolone Acetate) 12:03:49 CDT CPT-76635 Abx/Therapy Injection 12:03:48 CDT CPT-J1020 Depo Medrol 60 mg (Methyl Prednisolone Acetate) 09:56:19 CDT CPT-59337 Spec Collection and Handling Fee 12:10:42 CDT CPT-PV Prev. Care Visit 12:10:42 CDT CPT-81005 Administration single or combination vaccine inc oral 16:45:52 ELECTRONIC REPAIR TROUBLESHOOTER CPT-09197 Influenza split virus > age 3 16:45:52 ELECTRONIC REPAIR TROUBLESHOOTER CPT-25955 Spec Collection and Handling Fee 10:35:02 ELECTRONIC REPAIR TROUBLESHOOTER
--- OUTSIDE RECORDS SUMMARY | 2019-04-22 11:02 | XMS REPORT | Clinical Summary ---
Author Author Admin, [place] Organization [facility] Address Unknown Phone Unavailable Allergies, Adverse Reactions, [...] ORAL TABS 1.5 po qd SERTRALINE HCL 06453459718 Active Cayetano Skinner MD Active MACROBID CAPS 1 cap po qd. NITROFURANTOIN MONOHYD MACRO CAPS 11638528935 Active Cayetano Skinner MD Active SUBOXONE 8-2 MG SL FILM 1 1/2 STRIPS QD BUPRENORPHINE HCL-NALOXONE HCL 52203633230 Active Cayetano Skinner MD Active CIPRO 500 MG TAB 1 tablet by mouth twice daily CIPROFLOXACIN HCL 90648912533 No Longer Active Cayetano Skinner MD Active MACROBID 100 MG ORAL CAPS Take one by mouth daily NITROFURANTOIN MONOHYD MACRO 94301731025 No Longer Active Kimberly Brown MD Active SUBOXONE 8-2 MG SUBL 2 po qd BUPRENORPHINE HCL-NALOXONE HCL 85032735385 No Longer Active Kimberly Brown MD Active HYDROCORTISONE 2.5 % EXT CREA Apply three times a day to affected area HYDROCORTISONE 05509852076 No Longer Active Kimberly Brown MD Active AUGMENTIN 500-125 MG TAB Take 1 capsule by mouth three times a day X 10 days AMOXICILLIN-POT CLAVULANATE 46264257869 No Longer Active Connie Reyes APRN Active BACTRIM DS 800-160 MG TAB 1 tab by mouth twice daily TRIMETHOPRIM-SULFAMETHOXAZOLE 38166203017 No Longer Active Cayetano Skinner MD Active ZITHROMAX Z-MARTI 250 MG TABS 2 today, then 1 daily for 4 days AZITHROMYCIN 84960828237 No Longer Active Jensen Santiago MD Active CETIRIZINE HCL 10 MG TABS ONE DAILY CETIRIZINE HCL 77521109880 No Longer Active Jensen Santiago MD Active KLONOPIN 1 MG TAB 1/2 tab bid CLONAZEPAM 76684496287 No Longer Active Jensen Santiago MD Active ZOLPIDEM TARTRATE 10 MG TABS 1 q hs as needed for sleep ZOLPIDEM TARTRATE 40000163785 No Longer Active Jensen Santiago MD Active CELEXA 40 MG TABS Take one by mouth daily CITALOPRAM HYDROBROMIDE 26802045532 No Longer Active Jensen Santiago MD Active AMOXICILLIN 875 MG TABS 1 tab by mouth twice daily AMOXICILLIN 33032666629 No Longer Active Cayetano Skinner MD Active FLAGYL 500 MG TAB 1 tablet by mouth two times daily METRONIDAZOLE 67122778282 No Longer Active Cayetano Skinner MD Active FLAGYL 500 MG TAB 1 tablet by mouth two times daily METRONIDAZOLE 15335503424 No Longer Active Cayetano Skinner MD Active BUSPIRONE HCL 15 MG TABS 1/2 PO BID BUSPIRONE HCL 56850577097 No Longer Active Cayetano Skinner MD Active BUSPIRONE HCL 15 MG TABS 1/2 PO BID BUSPIRONE HCL 15 MG TABS 151375 BUSPIRONE HCL Inactive CELEXA 40 MG TABS Take one by mouth daily CELEXA 40 MG TABS 925003 CITALOPRAM HYDROBROMIDE Inactive ZOLPIDEM TARTRATE 10 MG TABS 1 q hs as needed for sleep ZOLPIDEM TARTRATE 10 MG TABS 979305 ZOLPIDEM TARTRATE Inactive KLONOPIN 1 MG TAB 1/2 tab bid KLONOPIN 1 MG TAB 997814 CLONAZEPAM Inactive CETIRIZINE HCL 10 MG TABS ONE DAILY CETIRIZINE HCL 10 MG TABS 3279749 CETIRIZINE HCL Inactive HYDROCORTISONE 2.5 % EXT CREA Apply three times a day to affected area HYDROCORTISONE 2.5 % EXT CREA 542912 HYDROCORTISONE Inactive SUBOXONE 8-2 MG SUBL 2 po qd SUBOXONE 8-2 MG SUBL BUPRENORPHINE HCL-NALOXONE HCL Inactive CIPRO 500 MG TAB 1 tablet by mouth twice daily CIPRO 500 MG TAB 605757 CIPROFLOXACIN HCL Inactive FLAGYL 500 MG TAB 1 tablet by mouth two times daily FLAGYL 500 MG TAB 028562 METRONIDAZOLE Inactive FLAGYL 500 MG TAB 1 tablet by mouth two times daily FLAGYL 500 MG TAB 291214 METRONIDAZOLE Inactive AMOXICILLIN 875 MG TABS 1 tab by mouth twice daily AMOXICILLIN 875 MG TABS 670752 AMOXICILLIN Inactive ZITHROMAX Z-MARTI 250 MG TABS 2 today, then 1 daily for 4 days ZITHROMAX Z-MARTI 250 MG TABS 2835173 AZITHROMYCIN Inactive BACTRIM DS 800-160 MG TAB 1 tab by mouth twice daily BACTRIM DS 800-160 MG TAB 084115 TRIMETHOPRIM-SULFAMETHOXAZOLE Inactive AUGMENTIN 500-125 MG TAB Take 1 capsule by mouth three times a day X 10 days AUGMENTIN 500-125 MG TAB 438423 AMOXICILLIN-POT CLAVULANATE Inactive MACROBID 100 MG ORAL CAPS Take one by mouth daily MACROBID 100 MG ORAL CAPS 2738420 NITROFURANTOIN MONOHYD MACRO Inactive Immunizations Vaccine Administration Date Value Standard Description Seasonal influenza vaccine, injectable, containing preservative, for > 3 years old (Afluria, FluLaval, Fluzone, Fluvirin, Fluarix, Agriflu(>=18 yo)) Fluzone (>3 yrs.) [[id number]] Influenza, seasonal, injectable Vital Signs Date Name [...] Measured Encounters Code Encounter Date Provider Facility CPT-61417 Level 3 Est. Patient 15:04:35 CDT Cayetano Skinner MD [facility] CPT-31754 Level 3 Est. Patient 15:07:05 HEALTH INFORMATION DIRECTOR Cayetano Skinner MD [facility] CPT-46882 Level 3 Est. Patient 09:56:19 [facility] Level 3 Est. Patient 12:31:18 HEALTH INFORMATION DIRECTOR Jensen Santiago MD [facility] CPT-85532 Level 3 Est. Patient 10:35:02 HEALTH INFORMATION DIRECTOR Cayetano Skinner MD [facility] CPT-60429 Level 3 Est. Patient 12:50:08 HEALTH INFORMATION DIRECTOR Cayetano Skinner MD [facility] Procedures Code Procedure Name Date Entry Date Standard Description CPT-50016 Bladder Scan 19:49:06 HEALTH INFORMATION DIRECTOR CPT-79804 Spec Collection and Handling Fee 11:57:40 CDT CPT-J1020 Depo Medrol 60 mg (Methyl Prednisolone Acetate) 12:03:49 CDT CPT-22141 Abx/Therapy Injection 12:03:48 CDT CPT-J1020 Depo Medrol 60 mg (Methyl Prednisolone Acetate) 09:56:19 CDT CPT-86612 Spec Collection and Handling Fee 12:10:42 CDT CPT-PV Prev. Care Visit 12:10:42 CDT CPT-24245 Administration single or combination vaccine inc oral 16:45:52 HEALTH INFORMATION DIRECTOR CPT-91740 Influenza split virus > age 3 16:45:52 HEALTH INFORMATION DIRECTOR CPT-17352 Spec Collection and Handling Fee 10:35:02 HEALTH INFORMATION DIRECTOR
--- OUTSIDE RECORDS SUMMARY | 2019-04-22 11:02 | XMS REPORT | Clinical Summary ---
Author Author Admin, [place] Organization [facility] Address Unknown Phone Unavailable Allergies, Adverse Reactions, Alerts Allergy Name Reaction Description Start Date Severity Status Provider No Known Allergies Joanne BODREN Conditions or Problems Problem Name Problem Code [...] days, then 1 po BID VENLAFAXINE HCL 26056353653 Active Cayetano Skinner MD Active SERTRALINE HCL 100 MG ORAL TABS 2 po qd SERTRALINE HCL 56564514727 No Longer Active Cayetano Skinner MD Active MACROBID CAPS 1 cap po qd. NITROFURANTOIN MONOHYD MACRO CAPS 38823727452 No Longer Active Kimberly Brown MD Active SUBOXONE 8-2 MG SL FILM 1 1/2 STRIPS QD BUPRENORPHINE HCL-NALOXONE HCL 95997815618 Active Cayetano Skinner MD Active CIPRO 500 MG TAB 1 tablet by mouth twice daily CIPROFLOXACIN HCL 82919169413 No Longer Active Cayetano Skinner MD Active MACROBID 100 MG ORAL CAPS Take one by mouth daily NITROFURANTOIN MONOHYD MACRO 36577810126 No Longer Active Kimberly Brown MD Active SUBOXONE 8-2 MG SUBL 2 po qd BUPRENORPHINE HCL-NALOXONE HCL 07147919931 No Longer Active Kimberly Brown MD Active HYDROCORTISONE 2.5 % EXT CREA Apply three times a day to affected area HYDROCORTISONE 77202850838 No Longer Active Kimberly Brown MD Active AUGMENTIN 500-125 MG TAB Take 1 capsule by mouth three times a day X 10 days AMOXICILLIN-POT CLAVULANATE 61396592348 No Longer Active Connie Reyes APRN Active BACTRIM DS 800-160 MG TAB 1 tab by mouth twice daily TRIMETHOPRIM-SULFAMETHOXAZOLE 55361061503 No Longer Active Cayetano Skinner MD Active ZITHROMAX Z-MARTI 250 MG TABS 2 today, then 1 daily for 4 days AZITHROMYCIN 54276077778 No Longer Active Jensen Santiago MD Active CETIRIZINE HCL 10 MG TABS ONE DAILY CETIRIZINE HCL 94378214060 No Longer Active Jensen Santiago MD Active KLONOPIN 1 MG TAB 1/2 tab bid CLONAZEPAM 48912726221 No Longer Active Jensen Santiago MD Active ZOLPIDEM TARTRATE 10 MG TABS 1 q hs as needed for sleep ZOLPIDEM TARTRATE 35088207299 No Longer Active Jensen Santiago MD Active CELEXA 40 MG TABS Take one by mouth daily CITALOPRAM HYDROBROMIDE 25802058509 No Longer Active Jensen Santiago MD Active AMOXICILLIN 875 MG TABS 1 tab by mouth twice daily AMOXICILLIN 88833648229 No Longer Active Cayetano Skinner MD Active FLAGYL 500 MG TAB 1 tablet by mouth two times daily METRONIDAZOLE 32174423780 No Longer Active Cayetano Skinner MD Active FLAGYL 500 MG TAB 1 tablet by mouth two times daily METRONIDAZOLE 66871368718 No Longer Active Cayetano Skinner MD Active BUSPIRONE HCL 15 MG TABS 1/2 PO BID BUSPIRONE HCL 88403245615 No Longer Active Cayetano Skinner MD Active BUSPIRONE HCL 15 MG TABS 1/2 PO BID BUSPIRONE HCL 15 MG TABS 770892 BUSPIRONE HCL Inactive CELEXA 40 MG TABS Take one by mouth daily CELEXA 40 MG TABS 898976 CITALOPRAM HYDROBROMIDE Inactive ZOLPIDEM TARTRATE 10 MG TABS 1 q hs as needed for sleep ZOLPIDEM TARTRATE 10 MG TABS 503218 ZOLPIDEM TARTRATE Inactive KLONOPIN 1 MG TAB 1/2 tab bid KLONOPIN 1 MG TAB 696445 CLONAZEPAM Inactive CETIRIZINE HCL 10 MG TABS ONE DAILY CETIRIZINE HCL 10 MG TABS 9960592 CETIRIZINE HCL Inactive HYDROCORTISONE 2.5 % EXT CREA Apply three times a day to affected area HYDROCORTISONE 2.5 % EXT CREA 330027 HYDROCORTISONE Inactive SUBOXONE 8-2 MG SUBL 2 po qd SUBOXONE 8-2 MG SUBL BUPRENORPHINE HCL-NALOXONE HCL Inactive CIPRO 500 MG TAB 1 tablet by mouth twice daily CIPRO 500 MG TAB 566431 CIPROFLOXACIN HCL Inactive MACROBID CAPS 1 cap po qd. MACROBID CAPS NITROFURANTOIN MONOHYD MACRO CAPS Inactive FLAGYL 500 MG TAB 1 tablet by mouth two times daily FLAGYL 500 MG TAB 583154 METRONIDAZOLE Inactive FLAGYL 500 MG TAB 1 tablet by mouth two times daily FLAGYL 500 MG TAB 867748 METRONIDAZOLE Inactive AMOXICILLIN 875 MG TABS 1 tab by mouth twice daily AMOXICILLIN 875 MG TABS 985121 AMOXICILLIN Inactive ZITHROMAX Z-MARTI 250 MG TABS 2 today, then 1 daily for 4 days ZITHROMAX Z-MARTI 250 MG TABS 4971836 AZITHROMYCIN Inactive BACTRIM DS 800-160 MG TAB 1 tab by mouth twice daily BACTRIM DS 800-160 MG TAB 464735 TRIMETHOPRIM-SULFAMETHOXAZOLE Inactive AUGMENTIN 500-125 MG TAB Take 1 capsule by mouth three times a day X 10 days AUGMENTIN 500-125 MG TAB 714915 AMOXICILLIN-POT CLAVULANATE Inactive MACROBID 100 MG ORAL CAPS Take one by mouth daily MACROBID 100 MG ORAL CAPS 4521668 NITROFURANTOIN MONOHYD MACRO Inactive Immunizations Vaccine Administration Date Value Standard Description Seasonal influenza vaccine, injectable, containing preservative, for > 3 years old (Afluria, FluLaval, Fluzone, Fluvirin, Fluarix, Agriflu(>=18 yo)) Fluzone (>3 yrs.) [[id number]] Influenza, seasonal, injectable Vital Signs Date Name [...] Measured Encounters Code Encounter Date Provider Facility CPT-07660 Level 3 Est. Patient 16:55:26 CDT Cayetano Skinner MD [facility] CPT-05519 Level 2 Est. Patient 11:28:42 CDT Kimberly Brown MD [facility] CPT-98739 Level 3 Est. Patient 15:04:35 CDT Cayetano Skinner MD [facility] CPT-31027 Level 3 Est. 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 Patient 09:56:19 CDT Connie Reyes APRN [facility] CPT-65799 Level 3 Est. Patient 12:31:18 CONVEYOR WORKER Jensen Santiago MD [facility] CPT-75683 Level 3 Est. Patient 10:35:02 CONVEYOR WORKER Cayetano Skinner MD [facility] CPT-68047 Level 3 Est. Patient 12:50:08 CONVEYOR WORKER Cayetano Skinner MD [facility] Procedures Code Procedure Name Date Entry Date Standard Description CPT-96376 Bladder Scan 19:49:06 CONVEYOR WORKER CPT-45681 Spec Collection and Handling Fee 11:57:40 CDT CPT-J1020 Depo Medrol 60 mg (Methyl Prednisolone Acetate) 12:03:49 CDT CPT-96064 Abx/Therapy Injection 12:03:48 CDT CPT-J1020 Depo Medrol 60 mg (Methyl Prednisolone Acetate) 09:56:19 CDT CPT-03317 Spec Collection and Handling Fee 12:10:42 CDT CPT-PV Prev. Care Visit 12:10:42 CDT CPT-38923 Administration single or combination vaccine inc oral 16:45:52 CONVEYOR WORKER CPT-91715 Influenza split virus > age 3 16:45:52 CONVEYOR WORKER CPT-62404 Spec Collection and Handling Fee 10:35:02 CONVEYOR WORKER
--- OUTSIDE RECORDS SUMMARY | 2019-04-22 11:03 | XMS REPORT | Clinical Summary ---
Author Author Admin, [place] Organization [facility] [employer] Address Unknown Phone Unavailable Allergies, Adverse Reactions, [...] elsewhere classified Pruritus 698.9 Active Dorothy Ayala MEDICAL OFFICE ADMINISTRATOR Unspecified pruritic disorder Urticaria 708.9 Active Dorothy Ayala MEDICAL OFFICE ADMINISTRATOR Unspecified urticaria Hepatitis C 070.70 Active Dorothy [...] 1 po qHS PRN Insomnia TRAZODONE HCL 23430191345 Active Joanne Molina RMA Active LUNESTA 1 MG ORAL TABS 1 po qHS PRN Insomnia ESZOPICLONE 03328803545 No Longer Active Joanne Molina RMA Active ZANTAC 150 MG TAB 1 tab po q am RANITIDINE HCL 13006451006 Active Dorothy Ayala MEDICAL OFFICE ADMINISTRATOR Active ZYRTEC ALLERGY 10 MG CAPS 1 po am CETIRIZINE HCL 18553213687 Active Casperllvishal Scottmichellel MEDICAL OFFICE ADMINISTRATOR Active PREDNISONE 20 MG TAB 2 tabs daily for 4 days, 1 tab daily for 4 days, 1/2 tab daily for 4 days PREDNISONE 76712390564 Active Caspersb Ayala APRN Active VENLAFAXINE HCL 75 MG ORAL TABS 1.5 po BID VENLAFAXINE HCL 04028675696 Active Cayetano Skinner MD Active TRAZODONE HCL 100 MG ORAL TABS 0.5 to 1 po qHS PRN Insomnia TRAZODONE HCL 25627949087 No Longer Active Cayetano Skinner MD Active SERTRALINE HCL 100 MG ORAL TABS 2 po qd SERTRALINE HCL 33442915260 No Longer Active Cayetano Skinner MD Active MACROBID CAPS 1 cap po qd. NITROFURANTOIN MONOHYD MACRO CAPS 47127054346 No Longer Active Kimberly Brown MD Active SUBOXONE 8-2 MG SL FILM 1 1/2 STRIPS QD BUPRENORPHINE HCL-NALOXONE HCL 69648961974 Active Cayetano Skinner MD Active CIPRO 500 MG TAB 1 tablet by mouth twice daily CIPROFLOXACIN HCL 07214470029 No Longer Active Cayetano Skinner MD Active MACROBID 100 MG ORAL CAPS Take one by mouth daily NITROFURANTOIN MONOHYD MACRO 53828977223 No Longer Active Kimberly Brown MD Active SUBOXONE 8-2 MG SUBL 2 po qd BUPRENORPHINE HCL-NALOXONE HCL 30404281744 No Longer Active Kimberly Brown MD Active HYDROCORTISONE 2.5 % EXT CREA Apply three times a day to affected area HYDROCORTISONE 72498803924 No Longer Active Kimberly Brown MD Active AUGMENTIN 500-125 MG TAB Take 1 capsule by mouth three times a day X 10 days AMOXICILLIN-POT CLAVULANATE 11259631334 No Longer Active Connie Reyes APRN Active BACTRIM DS 800-160 MG TAB 1 tab by mouth twice daily TRIMETHOPRIM-SULFAMETHOXAZOLE 14806355053 No Longer Active Cayetano Skinner MD Active ZITHROMAX Z-MARTI 250 MG TABS 2 today, then 1 daily for 4 days AZITHROMYCIN 06304406901 No Longer Active Jensen Santiago MD Active CETIRIZINE HCL 10 MG TABS ONE DAILY CETIRIZINE HCL 15983556549 No Longer Active Jensen Santiago MD Active KLONOPIN 1 MG TAB 1/2 tab bid CLONAZEPAM 85766474679 No Longer Active Jensen Santiago MD Active ZOLPIDEM TARTRATE 10 MG TABS 1 q hs as needed for sleep ZOLPIDEM TARTRATE 91513231542 No Longer Active Jensen Santiago MD Active CELEXA 40 MG TABS Take one by mouth daily CITALOPRAM HYDROBROMIDE 29208719264 No Longer Active Jensen Santiago MD Active AMOXICILLIN 875 MG TABS 1 tab by mouth twice daily AMOXICILLIN 75325307414 No Longer Active Cayetano Skinner MD Active FLAGYL 500 MG TAB 1 tablet by mouth two times daily METRONIDAZOLE 61840087219 No Longer Active Cayetano Skinner MD Active FLAGYL 500 MG TAB 1 tablet by mouth two times daily METRONIDAZOLE 46105555570 No Longer Active Cayetano Skinner MD Active BUSPIRONE HCL 15 MG TABS 1/2 PO BID BUSPIRONE HCL 30079068105 No Longer Active Cayetano Skinner MD Active BUSPIRONE HCL 15 MG TABS 1/2 PO BID BUSPIRONE HCL 15 MG TABS 962391 BUSPIRONE HCL Inactive CELEXA 40 MG TABS Take one by mouth daily CELEXA 40 MG TABS 319957 CITALOPRAM HYDROBROMIDE Inactive ZOLPIDEM TARTRATE 10 MG TABS 1 q hs as needed for sleep ZOLPIDEM TARTRATE 10 MG TABS 437194 ZOLPIDEM TARTRATE Inactive KLONOPIN 1 MG TAB 1/2 tab bid KLONOPIN 1 MG TAB 913468 CLONAZEPAM Inactive CETIRIZINE HCL 10 MG TABS ONE DAILY CETIRIZINE HCL 10 MG TABS 2041536 CETIRIZINE HCL Inactive HYDROCORTISONE 2.5 % EXT CREA Apply three times a day to affected area HYDROCORTISONE 2.5 % EXT CREA 914397 HYDROCORTISONE Inactive SUBOXONE 8-2 MG SUBL 2 po qd SUBOXONE 8-2 MG SUBL BUPRENORPHINE HCL-NALOXONE HCL Inactive CIPRO 500 MG TAB 1 tablet by mouth twice daily CIPRO 500 MG TAB 961939 CIPROFLOXACIN HCL Inactive MACROBID CAPS 1 cap po qd. MACROBID CAPS NITROFURANTOIN MONOHYD MACRO CAPS Inactive LUNESTA 1 MG ORAL TABS 1 po qHS PRN Insomnia LUNESTA 1 MG ORAL TABS 706856 ESZOPICLONE Inactive FLAGYL 500 MG TAB 1 tablet by mouth two times daily FLAGYL 500 MG TAB 846900 METRONIDAZOLE Inactive FLAGYL 500 MG TAB 1 tablet by mouth two times daily FLAGYL 500 MG TAB 534946 METRONIDAZOLE Inactive AMOXICILLIN 875 MG TABS 1 tab by mouth twice daily AMOXICILLIN 875 MG TABS 445501 AMOXICILLIN Inactive ZITHROMAX Z-MARTI 250 MG TABS 2 today, then 1 daily for 4 days ZITHROMAX Z-MARTI 250 MG TABS 289511 AZITHROMYCIN Inactive BACTRIM DS 800-160 MG TAB 1 tab by mouth twice daily BACTRIM DS 800-160 MG TAB 858402 TRIMETHOPRIM-SULFAMETHOXAZOLE Inactive AUGMENTIN 500-125 MG TAB Take 1 capsule by mouth three times a day X 10 days AUGMENTIN 500-125 MG TAB 069248 AMOXICILLIN-POT CLAVULANATE Inactive MACROBID 100 MG ORAL CAPS Take one by mouth daily MACROBID 100 MG ORAL CAPS 3204838 NITROFURANTOIN MONOHYD MACRO Inactive Immunizations Vaccine Administration Date Value Standard Description Seasonal influenza vaccine, injectable, containing preservative, for > 3 years old (Afluria, FluLaval, Fluzone, Fluvirin, Fluarix, Agriflu(>=18 yo)) Fluzone (>3 yrs.) [[id number]] Influenza, seasonal, injectable Vital Signs Date Name [...] Range Description Lab Report: C-REACTIVE PROTEIN, HIV-1/2 Agn/[place]/94003, Drug Abuse Pnl 10 ... - Chemistry rapid plasma reagin antibody titer NON-REACTIVE NON-REACTIVE Lab Report: C-REACTIVE PROTEIN, HIV-1/2 Agn/[place]/36291, Drug Abuse Pnl 10 ... - Lab chlamydia DNA probe NOT DETECTED NOT DETECTED Lab Report: C-REACTIVE PROTEIN, HIV-1/2 Agn/[place]/71587, Drug Abuse Pnl 10 ... - Microbiology Neisseria gonorrhoeae DNA probe NOT DETECTED NOT DETECTED Lab Report: CBC W/DIFF, Comp. Metabolic Panel, Free Thyroxine (L), Thyro ... - Chemistry sodium, serum 138 mmol/L 174-400 1902/09/12 carbon dioxide, venous blood 29.9 mmol/L 21.0-32.0 [...] 5.0-8.5 Encounters Code Encounter Date Provider Facility CPT-50344 Level 4 Est. Patient 22:21:42 CDT Dorothy Ayala [facility] CPT-64263 Level 4 Est. Patient 21:18:20 CDT Dorothy Ayala [facility] CPT-40247 Level 3 Est. Patient 10:06:58 CDT Dorothy Ayala [facility] CPT-21148 Level 3 Est. Patient 09:36:26 CDT Dorothy Ayala [facility] CPT-78090 Level 3 Est. Patient 16:55:26 CDT Cayetano Skinner MD [facility] CPT-32391 Level 2 Est. Patient 11:28:42 CDT Kimberly Brown MD [facility] CPT-41946 Level 3 Est. Patient 15:04:35 CDT Cayetano Skinner MD [facility] CPT-47175 Level 3 Est. Patient 15:07:05 HYDRODYNAMICS PROFESSOR Cayetano Skinner MD [facility] CPT-57696 Level 3 Est. Patient 09:56:19 CDT Connie Lockecarmen HAMILTON [facility] CPT-69725 Level 3 Est. Patient 12:31:18 HYDRODYNAMICS PROFESSOR Jensen Santiago MD [facility] CPT-78982 Level 3 Est. Patient 10:35:02 HYDRODYNAMICS PROFESSOR Cayetano Skinner MD [facility] CPT-54078 Level 3 Est. Patient 12:50:08 HYDRODYNAMICS PROFESSOR Cayetano Skinner MD [facility] Procedures Code Procedure Name Date Entry Date Standard Description CPT-63130 Venipuncture Draw Fee 10:10:37 CDT CPT-03759 [facility] - [facility] 10:06:58 CDT CPT-23843 Bladder Scan 19:49:06 HYDRODYNAMICS PROFESSOR CPT-86306 Spec Collection and Handling Fee 11:57:40 CDT CPT-J1020 Depo Medrol 60 mg (Methyl Prednisolone Acetate) 12:03:49 CDT CPT-36286 Abx/Therapy Injection 12:03:48 CDT CPT-J1020 Depo Medrol 60 mg (Methyl Prednisolone Acetate) 09:56:19 CDT CPT-08756 Spec Collection and Handling Fee 12:10:42 CDT CPT-PV Prev. Care Visit 12:10:42 CDT CPT-16357 Administration single or combination vaccine inc oral 16:45:52 HYDRODYNAMICS PROFESSOR CPT-27266 Influenza split virus > age 3 16:45:52 HYDRODYNAMICS PROFESSOR CPT-83771 Spec Collection and Handling Fee 10:35:02 HYDRODYNAMICS PROFESSOR
--- OUTSIDE RECORDS SUMMARY | 2019-04-22 11:03 | XMS REPORT | Clinical Summary ---
Author Author Admin, [place] Organization [employer] Address Unknown Phone Unavailable Allergies, Adverse Reactions, [...] ORAL TABS 1 po qd SERTRALINE HCL 25661112074 Active Cayetano Skinner MD Active MACROBID CAPS 1 cap po qd. NITROFURANTOIN MONOHYD MACRO CAPS 80377838832 Active Cayetano Skinner MD Active SUBOXONE 8-2 MG SL FILM 1 1/2 STRIPS QD BUPRENORPHINE HCL-NALOXONE HCL 31567646178 Active Cayetano Skinner MD Active CIPRO 500 MG TAB 1 tablet by mouth twice daily CIPROFLOXACIN HCL 58065846058 No Longer Active Cayetano Skinner MD Active MACROBID 100 MG ORAL CAPS Take one by mouth daily NITROFURANTOIN MONOHYD MACRO 49033586800 No Longer Active Kimberly Brown MD Active SUBOXONE 8-2 MG SUBL 2 po qd BUPRENORPHINE HCL-NALOXONE HCL 14780158969 No Longer Active Kimberly Brown MD Active HYDROCORTISONE 2.5 % EXT CREA Apply three times a day to affected area HYDROCORTISONE 06268564545 No Longer Active Kimberly Brown MD Active AUGMENTIN 500-125 MG TAB Take 1 capsule by mouth three times a day X 10 days AMOXICILLIN-POT CLAVULANATE 52700255052 No Longer Active Connie Reyes APRN Active BACTRIM DS 800-160 MG TAB 1 tab by mouth twice daily TRIMETHOPRIM-SULFAMETHOXAZOLE 48393526033 No Longer Active Cayetano Skinner MD Active ZITHROMAX Z-MARTI 250 MG TABS 2 today, then 1 daily for 4 days AZITHROMYCIN 68845026439 No Longer Active Jensen Santiago MD Active CETIRIZINE HCL 10 MG TABS ONE DAILY CETIRIZINE HCL 28477687772 No Longer Active Jensen Santiago MD Active KLONOPIN 1 MG TAB 1/2 tab bid CLONAZEPAM 54779145051 No Longer Active Jensen Santiago MD Active ZOLPIDEM TARTRATE 10 MG TABS 1 q hs as needed for sleep ZOLPIDEM TARTRATE 23776535402 No Longer Active Jensen Santiago MD Active CELEXA 40 MG TABS Take one by mouth daily CITALOPRAM HYDROBROMIDE 06386107153 No Longer Active Jensen Santiago MD Active AMOXICILLIN 875 MG TABS 1 tab by mouth twice daily AMOXICILLIN 89136433929 No Longer Active Cayetano Skinner MD Active FLAGYL 500 MG TAB 1 tablet by mouth two times daily METRONIDAZOLE 22936258018 No Longer Active Cayetano Skinner MD Active FLAGYL 500 MG TAB 1 tablet by mouth two times daily METRONIDAZOLE 44806168870 No Longer Active Cayetano Skinner MD Active BUSPIRONE HCL 15 MG TABS 1/2 PO BID BUSPIRONE HCL 68949543938 No Longer Active Cayetano Skinner MD Active BUSPIRONE HCL 15 MG TABS 1/2 PO BID BUSPIRONE HCL 15 MG TABS 175392 BUSPIRONE HCL Inactive CELEXA 40 MG TABS Take one by mouth daily CELEXA 40 MG TABS 203910 CITALOPRAM HYDROBROMIDE Inactive ZOLPIDEM TARTRATE 10 MG TABS 1 q hs as needed for sleep ZOLPIDEM TARTRATE 10 MG TABS 763299 ZOLPIDEM TARTRATE Inactive KLONOPIN 1 MG TAB 1/2 tab bid KLONOPIN 1 MG TAB 251749 CLONAZEPAM Inactive CETIRIZINE HCL 10 MG TABS ONE DAILY CETIRIZINE HCL 10 MG TABS 8398522 CETIRIZINE HCL Inactive HYDROCORTISONE 2.5 % EXT CREA Apply three times a day to affected area HYDROCORTISONE 2.5 % EXT CREA 873619 HYDROCORTISONE Inactive SUBOXONE 8-2 MG SUBL 2 po qd SUBOXONE 8-2 MG SUBL BUPRENORPHINE HCL-NALOXONE HCL Inactive CIPRO 500 MG TAB 1 tablet by mouth twice daily CIPRO 500 MG TAB 483899 CIPROFLOXACIN HCL Inactive FLAGYL 500 MG TAB 1 tablet by mouth two times daily FLAGYL 500 MG TAB 120237 METRONIDAZOLE Inactive FLAGYL 500 MG TAB 1 tablet by mouth two times daily FLAGYL 500 MG TAB 560453 METRONIDAZOLE Inactive AMOXICILLIN 875 MG TABS 1 tab by mouth twice daily AMOXICILLIN 875 MG TABS 068891 AMOXICILLIN Inactive ZITHROMAX Z-AMRTI 250 MG TABS 2 today, then 1 daily for 4 days ZITHROMAX Z-MARTI 250 MG TABS 8516559 AZITHROMYCIN Inactive BACTRIM DS 800-160 MG TAB 1 tab by mouth twice daily BACTRIM DS 800-160 MG TAB 025839 TRIMETHOPRIM-SULFAMETHOXAZOLE Inactive AUGMENTIN 500-125 MG TAB Take 1 capsule by mouth three times a day X 10 days AUGMENTIN 500-125 MG TAB 427902 AMOXICILLIN-POT CLAVULANATE Inactive MACROBID 100 MG ORAL CAPS Take one by mouth daily MACROBID 100 MG ORAL CAPS 1153726 NITROFURANTOIN MONOHYD MACRO Inactive Immunizations Vaccine Administration Date Value Standard Description Seasonal influenza vaccine, injectable, containing preservative, for > 3 years old (Afluria, FluLaval, Fluzone, Fluvirin, Fluarix, Agriflu(>=18 yo)) Fluzone (>3 yrs.) [[id number]] Influenza, seasonal, injectable Vital Signs Date Name [...] Measured Encounters Code Encounter Date Provider Facility CPT-26363 Level 3 Est. Patient 15:04:35 CDT Cayetano Skinner MD [facility] CPT-91006 Level 3 Est. Patient 15:07:05 [employer]OVE MOUNTER Cayetano Skinner MD [facility] CPT-96505 Level 3 Est. Patient 09:56:19 CDT Connie Reyes [facility] [place] CPT-26833 Level 3 Est. Patient 12:31:18 STOVE MOUNTER Jensen Santiago MD [facility] [place] CPT-25257 Level 3 Est. Patient 10:35:02 STOVE MOUNTER Cayetano Skinner MD [facility] [place] CPT-08483 Level 3 Est. Patient 12:50:08 STOVE MOUNTER Cayetano Skinner MD [facility] [place] Procedures Code Procedure Name Date Entry Date Standard Description CPT-89223 Bladder Scan 19:49:06 STOVE MOUNTER CPT-96484 Spec Collection and Handling Fee 11:57:40 CDT CPT-J1020 Depo Medrol 60 mg (Methyl Prednisolone Acetate) 12:03:49 CDT CPT-35306 Abx/Therapy Injection 12:03:48 CDT CPT-J1020 Depo Medrol 60 mg (Methyl Prednisolone Acetate) 09:56:19 CDT CPT-81397 Spec Collection and Handling Fee 12:10:42 CDT CPT-PV Prev. Care Visit 12:10:42 CDT CPT-19990 Administration single or combination vaccine inc oral 16:45:52 STOVE MOUNTER CPT-50096 Influenza split virus > age 3 16:45:52 [employer]OVE [employer] CPT-33457 Spec Collection and Handling Fee 10:35:02 STOVE MOUNTER
--- OUTSIDE RECORDS SUMMARY | 2019-04-22 11:04 | XMS REPORT | Clinical Summary ---
Author Author Admin, [place] Organization [employer] Address Unknown Phone Unavailable Allergies, Adverse Reactions, [...] elsewhere classified Pruritus 698.9 Active Dorothy Ayala CURLING MACHINE OPERATOR Unspecified pruritic disorder Urticaria 708.9 Active Dorothy Ayala CURLING MACHINE OPERATOR Unspecified urticaria Hepatitis C 070.70 Active Dorothy [...] 1 po qHS PRN Insomnia TRAZODONE HCL 90730176092 Active Joanne Molina RMA Active LUNESTA 1 MG ORAL TABS 1 po qHS PRN Insomnia ESZOPICLONE 60986352243 No Longer Active Joanne Molina RMA Active ZANTAC 150 MG TAB 1 tab po q am RANITIDINE HCL 16480882419 Active Dorothy Ayala CURLING MACHINE OPERATOR Active ZYRTEC ALLERGY 10 MG CAPS 1 po am CETIRIZINE HCL 85282057204 Active Casperllvishal Scottmichellel CURLING MACHINE OPERATOR Active PREDNISONE 20 MG TAB 2 tabs daily for 4 days, 1 tab daily for 4 days, 1/2 tab daily for 4 days PREDNISONE 75171735940 Active Caspersb Ayala APRN Active VENLAFAXINE HCL 75 MG ORAL TABS 1.5 po BID VENLAFAXINE HCL 08963843500 Active Cayetano Skinner MD Active TRAZODONE HCL 100 MG ORAL TABS 0.5 to 1 po qHS PRN Insomnia TRAZODONE HCL 39771525178 No Longer Active Cayetano Skinner MD Active SERTRALINE HCL 100 MG ORAL TABS 2 po qd SERTRALINE HCL 74537686467 No Longer Active Cayetano Skinner MD Active MACROBID CAPS 1 cap po qd. NITROFURANTOIN MONOHYD MACRO CAPS 64767161788 No Longer Active Kimberly Brown MD Active SUBOXONE 8-2 MG SL FILM 1 1/2 STRIPS QD BUPRENORPHINE HCL-NALOXONE HCL 58835362126 Active Cayetano Skinner MD Active CIPRO 500 MG TAB 1 tablet by mouth twice daily CIPROFLOXACIN HCL 91478593075 No Longer Active Cayetano Skinner MD Active MACROBID 100 MG ORAL CAPS Take one by mouth daily NITROFURANTOIN MONOHYD MACRO 11253222569 No Longer Active Kimberly Brown MD Active SUBOXONE 8-2 MG SUBL 2 po qd BUPRENORPHINE HCL-NALOXONE HCL 89058600332 No Longer Active Kimberly Brown MD Active HYDROCORTISONE 2.5 % EXT CREA Apply three times a day to affected area HYDROCORTISONE 51852427086 No Longer Active Kimberly Brown MD Active AUGMENTIN 500-125 MG TAB Take 1 capsule by mouth three times a day X 10 days AMOXICILLIN-POT CLAVULANATE 76858759920 No Longer Active Connie Reyes APRN Active BACTRIM DS 800-160 MG TAB 1 tab by mouth twice daily TRIMETHOPRIM-SULFAMETHOXAZOLE 42354016872 No Longer Active Cayetano Skinner MD Active ZITHROMAX Z-MARTI 250 MG TABS 2 today, then 1 daily for 4 days AZITHROMYCIN 00998169137 No Longer Active Jensen Santiago MD Active CETIRIZINE HCL 10 MG TABS ONE DAILY CETIRIZINE HCL 22794443225 No Longer Active Jensen Santiago MD Active KLONOPIN 1 MG TAB 1/2 tab bid CLONAZEPAM 86625246186 No Longer Active Jensen Santiago MD Active ZOLPIDEM TARTRATE 10 MG TABS 1 q hs as needed for sleep ZOLPIDEM TARTRATE 37516132875 No Longer Active Jensen Santiago MD Active CELEXA 40 MG TABS Take one by mouth daily CITALOPRAM HYDROBROMIDE 90941034002 No Longer Active Jensen Santiago MD Active AMOXICILLIN 875 MG TABS 1 tab by mouth twice daily AMOXICILLIN 14177299763 No Longer Active Cayetano Skinner MD Active FLAGYL 500 MG TAB 1 tablet by mouth two times daily METRONIDAZOLE 62624051204 No Longer Active Cayetano Skinner MD Active FLAGYL 500 MG TAB 1 tablet by mouth two times daily METRONIDAZOLE 29546435867 No Longer Active Cayetano Skinner MD Active BUSPIRONE HCL 15 MG TABS 1/2 PO BID BUSPIRONE HCL 19241219416 No Longer Active Cayetano Skinner MD Active BUSPIRONE HCL 15 MG TABS 1/2 PO BID BUSPIRONE HCL 15 MG TABS 425411 BUSPIRONE HCL Inactive CELEXA 40 MG TABS Take one by mouth daily CELEXA 40 MG TABS 330324 CITALOPRAM HYDROBROMIDE Inactive ZOLPIDEM TARTRATE 10 MG TABS 1 q hs as needed for sleep ZOLPIDEM TARTRATE 10 MG TABS 107923 ZOLPIDEM TARTRATE Inactive KLONOPIN 1 MG TAB 1/2 tab bid KLONOPIN 1 MG TAB 791018 CLONAZEPAM Inactive CETIRIZINE HCL 10 MG TABS ONE DAILY CETIRIZINE HCL 10 MG TABS 5508712 CETIRIZINE HCL Inactive HYDROCORTISONE 2.5 % EXT CREA Apply three times a day to affected area HYDROCORTISONE 2.5 % EXT CREA 242376 HYDROCORTISONE Inactive SUBOXONE 8-2 MG SUBL 2 po qd SUBOXONE 8-2 MG SUBL BUPRENORPHINE HCL-NALOXONE HCL Inactive CIPRO 500 MG TAB 1 tablet by mouth twice daily CIPRO 500 MG TAB 359933 CIPROFLOXACIN HCL Inactive MACROBID CAPS 1 cap po qd. MACROBID CAPS NITROFURANTOIN MONOHYD MACRO CAPS Inactive LUNESTA 1 MG ORAL TABS 1 po qHS PRN Insomnia LUNESTA 1 MG ORAL TABS 042698 ESZOPICLONE Inactive FLAGYL 500 MG TAB 1 tablet by mouth two times daily FLAGYL 500 MG TAB 867083 METRONIDAZOLE Inactive FLAGYL 500 MG TAB 1 tablet by mouth two times daily FLAGYL 500 MG TAB 272934 METRONIDAZOLE Inactive AMOXICILLIN 875 MG TABS 1 tab by mouth twice daily AMOXICILLIN 875 MG TABS 572237 AMOXICILLIN Inactive ZITHROMAX Z-MARTI 250 MG TABS 2 today, then 1 daily for 4 days ZITHROMAX Z-MARTI 250 MG TABS 452054 AZITHROMYCIN Inactive BACTRIM DS 800-160 MG TAB 1 tab by mouth twice daily BACTRIM DS 800-160 MG TAB 211555 TRIMETHOPRIM-SULFAMETHOXAZOLE Inactive AUGMENTIN 500-125 MG TAB Take 1 capsule by mouth three times a day X 10 days AUGMENTIN 500-125 MG TAB 421411 AMOXICILLIN-POT CLAVULANATE Inactive MACROBID 100 MG ORAL CAPS Take one by mouth daily MACROBID 100 MG ORAL CAPS 6534972 NITROFURANTOIN MONOHYD MACRO Inactive Immunizations Vaccine Administration Date Value Standard Description Seasonal influenza vaccine, injectable, containing preservative, for > 3 years old (Afluria, FluLaval, Fluzone, Fluvirin, Fluarix, Agriflu(>=18 yo)) Fluzone (>3 yrs.) [[id number]] Influenza, seasonal, injectable Vital Signs Date Name [...] Range Description Lab Report: C-REACTIVE PROTEIN, HIV-1/2 Agn/[place]/[id number], Drug Abuse Pnl 10 ... - Chemistry rapid plasma reagin antibody titer NON-REACTIVE NON-REACTIVE Lab Report: C-REACTIVE PROTEIN, HIV-1/2 Agn/[place]/02780, Drug Abuse Pnl 10 ... - Lab chlamydia DNA probe NOT DETECTED NOT DETECTED Lab Report: C-REACTIVE PROTEIN, HIV-1/2 Agn/[place]/94198, Drug Abuse Pnl 10 ... - Microbiology Neisseria gonorrhoeae DNA probe NOT DETECTED NOT DETECTED Lab Report: CBC W/DIFF, Comp. Metabolic Panel, Free Thyroxine (L), Thyro ... - Chemistry sodium, serum 138 mmol/L 245-380 6569/09/12 carbon dioxide, venous blood 29.9 mmol/L 21.0-32.0 [...] 5.0-8.5 Encounters Code Encounter Date Provider Facility CPT-53757 Level 4 Est. Patient 22:21:42 CDT Dorothy Ayala [facility] CPT-87633 Level 4 Est. Patient 21:18:20 CDT Dorothy Ayala [facility] CPT-89831 Level 3 Est. Patient 10:06:58 CDT Dorothy Ayala [facility] CPT-08091 Level 3 Est. Patient 09:36:26 CDT Dorothy Ayala [facility] CPT-53803 Level 3 Est. Patient 16:55:26 CDT Cayetano Skinner MD [facility] CPT-16699 Level 2 Est. Patient 11:28:42 CDT Kimberly Brown MD [facility] CPT-53508 Level 3 Est. Patient 15:04:35 CDT Cayetano Skinner MD [facility] CPT-20764 Level 3 Est. Patient 15:07:05 [employer] Cayetano Skinner MD [facility] CPT-70427 Level 3 Est. Patient 09:56:19 CDT Connie Lockecarmen HAMILTON [facility] CPT-71697 Level 3 Est. Patient 12:31:18 [employer] Jensen Santiago MD [facility] CPT-77594 Level 3 Est. Patient 10:35:02 [employer] Cayetano Skinner MD [facility] CPT-65065 Level 3 Est. Patient 12:50:08 [employer] Cayetano Skinner MD [facility] Procedures Code Procedure Name Date Entry Date Standard Description CPT-86332 Venipuncture Draw Fee 10:10:37 CDT CPT-53239 [facility] 10:06:58 CDT CPT-77667 Bladder Scan 19:49:06 [employer] CPT-50566 Spec Collection and Handling Fee 11:57:40 CDT CPT-J1020 Depo Medrol 60 mg (Methyl Prednisolone Acetate) 12:03:49 CDT CPT-79294 Abx/Therapy Injection 12:03:48 CDT CPT-J1020 Depo Medrol 60 mg (Methyl Prednisolone Acetate) 09:56:19 CDT CPT-53219 Spec Collection and Handling Fee 12:10:42 CDT CPT-PV Prev. Care Visit 12:10:42 CDT CPT-55525 Administration single or combination vaccine inc oral 16:45:52 [employer] CPT-05037 Influenza split virus > age 3 16:45:52 [employer] CPT-24007 Spec Collection and Handling Fee 10:35:02 [employer]
--- OUTSIDE RECORDS SUMMARY | 2019-04-22 11:04 | XMS REPORT | Clinical Summary ---
Author Author Admin, [employer] Organization [facility] Address Unknown Phone Unavailable Allergies, Adverse Reactions, [...] days, then 1 po qd SERTRALINE HCL 83471409856 Active Cayetano Skinner MD Active SUBOXONE 8-2 MG SL FILM 1 1/2 STRIPS QD BUPRENORPHINE HCL-NALOXONE HCL 25736883838 Active Cayetano Skinner MD Active CIPRO 500 MG TAB 1 tablet by mouth twice daily CIPROFLOXACIN HCL 12322298802 No Longer Active Cayetano Skinner MD Active MACROBID 100 MG ORAL CAPS Take one by mouth daily NITROFURANTOIN MONOHYD MACRO 44795607317 No Longer Active Kimberly Brown MD Active SUBOXONE 8-2 MG SUBL 2 po qd BUPRENORPHINE HCL-NALOXONE HCL 85778305621 No Longer Active Kimberly Brown MD Active HYDROCORTISONE 2.5 % EXT CREA Apply three times a day to affected area HYDROCORTISONE 13215639654 No Longer Active Kimberly Brown MD Active AUGMENTIN 500-125 MG TAB Take 1 capsule by mouth three times a day X 10 days AMOXICILLIN-POT CLAVULANATE 58634166104 No Longer Active Connie Reyes APRN Active BACTRIM DS 800-160 MG TAB 1 tab by mouth twice daily TRIMETHOPRIM-SULFAMETHOXAZOLE 90983002700 No Longer Active Cayetano Skinner MD Active ZITHROMAX Z-MARTI 250 MG TABS 2 today, then 1 daily for 4 days AZITHROMYCIN 52945314402 No Longer Active Jensen Santiago MD Active CETIRIZINE HCL 10 MG TABS ONE DAILY CETIRIZINE HCL 10556581914 No Longer Active Jensen Santiago MD Active KLONOPIN 1 MG TAB 1/2 tab bid CLONAZEPAM 45814247721 No Longer Active Jensen Santiago MD Active ZOLPIDEM TARTRATE 10 MG TABS 1 q hs as needed for sleep ZOLPIDEM TARTRATE 86476904331 No Longer Active Jensen Santiago MD Active CELEXA 40 MG TABS Take one by mouth daily CITALOPRAM HYDROBROMIDE 25939783792 No Longer Active Jensen Santiago MD Active AMOXICILLIN 875 MG TABS 1 tab by mouth twice daily AMOXICILLIN 10321266910 No Longer Active Cayetano Skinner MD Active FLAGYL 500 MG TAB 1 tablet by mouth two times daily METRONIDAZOLE 24122889157 No Longer Active Cayetano Skinner MD Active FLAGYL 500 MG TAB 1 tablet by mouth two times daily METRONIDAZOLE 64553817896 No Longer Active Cayetano Skinner MD Active BUSPIRONE HCL 15 MG TABS 1/2 PO BID BUSPIRONE HCL 27797628499 No Longer Active Cayetano Skinner MD Active BUSPIRONE HCL 15 MG TABS 1/2 PO BID BUSPIRONE HCL 15 MG TABS 483283 BUSPIRONE HCL Inactive CELEXA 40 MG TABS Take one by mouth daily CELEXA 40 MG TABS 802912 CITALOPRAM HYDROBROMIDE Inactive ZOLPIDEM TARTRATE 10 MG TABS 1 q hs as needed for sleep ZOLPIDEM TARTRATE 10 MG TABS 238967 ZOLPIDEM TARTRATE Inactive KLONOPIN 1 MG TAB 1/2 tab bid KLONOPIN 1 MG TAB 789118 CLONAZEPAM Inactive CETIRIZINE HCL 10 MG TABS ONE DAILY CETIRIZINE HCL 10 MG TABS 1042175 CETIRIZINE HCL Inactive HYDROCORTISONE 2.5 % EXT CREA Apply three times a day to affected area HYDROCORTISONE 2.5 % EXT CREA 773202 HYDROCORTISONE Inactive SUBOXONE 8-2 MG SUBL 2 po qd SUBOXONE 8-2 MG SUBL BUPRENORPHINE HCL-NALOXONE HCL Inactive CIPRO 500 MG TAB 1 tablet by mouth twice daily CIPRO 500 MG TAB 487785 CIPROFLOXACIN HCL Inactive FLAGYL 500 MG TAB 1 tablet by mouth two times daily FLAGYL 500 MG TAB 109481 METRONIDAZOLE Inactive FLAGYL 500 MG TAB 1 tablet by mouth two times daily FLAGYL 500 MG TAB 909684 METRONIDAZOLE Inactive AMOXICILLIN 875 MG TABS 1 tab by mouth twice daily AMOXICILLIN 875 MG TABS 210338 AMOXICILLIN Inactive ZITHROMAX Z-MARTI 250 MG TABS 2 today, then 1 daily for 4 days ZITHROMAX Z-MARTI 250 MG TABS 8711989 AZITHROMYCIN Inactive BACTRIM DS 800-160 MG TAB 1 tab by mouth twice daily BACTRIM DS 800-160 MG TAB 258529 TRIMETHOPRIM-SULFAMETHOXAZOLE Inactive AUGMENTIN 500-125 MG TAB Take 1 capsule by mouth three times a day X 10 days AUGMENTIN 500-125 MG TAB 076402 AMOXICILLIN-POT CLAVULANATE Inactive MACROBID 100 MG ORAL CAPS Take one by mouth daily MACROBID 100 MG ORAL CAPS 2625049 NITROFURANTOIN MONOHYD MACRO Inactive Immunizations Vaccine Administration Date Value Standard Description Seasonal influenza vaccine, injectable, containing preservative, for > 3 years old (Afluria, FluLaval, Fluzone, Fluvirin, Fluarix, Agriflu(>=18 yo)) Fluzone (>3 yrs.) [[id number]] Influenza, seasonal, injectable Vital Signs Date Name [...] Measured Encounters Code Encounter Date Provider Facility CPT-59842 Level 3 Est. 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 Patient 09:56:19 CDT Connie Lockecarmen HAMILTON [facility] CPT-08377 Level 3 Est. Patient 12:31:18 CERTIFIED EMERGENCY VEHICLE TECHNICIAN Jensen Santiago MD [facility] CPT-32489 Level 3 Est. Patient 10:35:02 CERTIFIED EMERGENCY VEHICLE TECHNICIAN Cayetano Skinner MD [facility] CPT-77993 Level 3 Est. Patient 12:50:08 CERTIFIED EMERGENCY VEHICLE TECHNICIAN Cayetano Skinner MD [facility] Procedures Code Procedure Name Date Entry Date Standard Description CPT-87930 Bladder Scan 19:49:06 CERTIFIED EMERGENCY VEHICLE TECHNICIAN CPT-15501 Spec Collection and Handling Fee 11:57:40 CDT CPT-J1020 Depo Medrol 60 mg (Methyl Prednisolone Acetate) 12:03:49 CDT CPT-14230 Abx/Therapy Injection 12:03:48 CDT CPT-J1020 Depo Medrol 60 mg (Methyl Prednisolone Acetate) 09:56:19 CDT CPT-19063 Spec Collection and Handling Fee 12:10:42 CDT CPT-PV Prev. Care Visit 12:10:42 CDT CPT-61165 Administration single or combination vaccine inc oral 16:45:52 CERTIFIED EMERGENCY VEHICLE TECHNICIAN CPT-29017 Influenza split virus > age 3 16:45:52 CERTIFIED EMERGENCY VEHICLE TECHNICIAN CPT-15230 Spec Collection and Handling Fee 10:35:02 CERTIFIED EMERGENCY VEHICLE TECHNICIAN
--- OUTSIDE RECORDS SUMMARY | 2019-04-22 11:05 | XMS REPORT | Clinical Summary ---
Author Author Admin, [place] Organization [employer] Address Unknown Phone Unavailable Allergies, Adverse Reactions, [...] sinusitis, unspecified Pre-employment exam V70.5 Resolved Cayetano kSinner MD Health examination of defined subpopulations U [...] Generic Name NDC Status Provider Patient Instruction TAMIFLU 75 MG ORAL CAPSULE 1 cap PO bid x 5 days OSELTAMIVIR PHOSPHATE 38661377302 Active Luna Wade NUCLEAR REACTOR ENGINEER Active TRAZODONE HCL 100 MG ORAL TABLET 0.5 to 1 po qHS PRN Insomnia TRAZODONE HCL 89271460003 Active Cayetano Skinner MD Active LUNESTA 1 MG ORAL TABLET 1 po qHS PRN Insomnia ESZOPICLONE 83360939029 No Longer Active Joanne BORDEN Active ZANTAC 150 MG ORAL TABLET 1 tab po q am RANITIDINE HCL 12351995518 Active Dorothy Dovel NUCLEAR REACTOR ENGINEER Active ZYRTEC ALLERGY 10 MG ORAL CAPSULE 1 po am CETIRIZINE HCL 33321433420 Active Dorothy Dovel NUCLEAR REACTOR ENGINEER Active PREDNISONE 20 MG ORAL TABLET 2 tabs daily for 4 days, 1 tab daily for 4 days, 1/2 tab daily for 4 days PREDNISONE 35742755413 Active Dorothy Dovel NUCLEAR REACTOR ENGINEER Active VENLAFAXINE HCL 75 MG ORAL TABLET 1.5 po BID VENLAFAXINE HCL 97060423336 Active Cayetano Skinner MD Active TRAZODONE HCL 100 MG ORAL TABLET 0.5 to 1 po qHS PRN Insomnia TRAZODONE HCL 59047392489 No Longer Active Cayetano Skinner MD Active SERTRALINE HCL 100 MG ORAL TABLET 2 po qd SERTRALINE HCL 27303419753 No Longer Active Cayetano Skinner MD Active MACROBID CAPSULE 1 cap po qd. NITROFURANTOIN MONOHYD MACRO CAPS 42698812573 No Longer Active Kimberly Brown MD Active SUBOXONE 8-2 MG SUBLINGUAL FILM 1 1/2 STRIPS QD BUPRENORPHINE HCL- NALOXONE HCL 00313297998 Active Cayetano Skinner MD Active CIPRO 500 MG ORAL TABLET 1 tablet by mouth twice daily CIPROFLOXACIN HCL 57532336438 No Longer Active Cayetano Skinner MD Active MACROBID 100 MG ORAL CAPSULE Take one by mouth daily NITROFURANTOIN MONOHYD MACRO 81136027669 No Longer Active Kimberly Brown MD Active SUBOXONE 8-2 MG SUBL 2 po qd BUPRENORPHINE HCL-NALOXONE HCL 46395912520 No Longer Active Kimberly Brown MD Active HYDROCORTISONE 2.5 % EXTERNAL CREAM Apply three times a day to affected area HYDROCORTISONE 06148136055 No Longer Active Kimberly Brown MD Active AUGMENTIN 500-125 MG ORAL TABLET Take 1 capsule by mouth three times a day X 10 days AMOXICILLIN-POT CLAVULANATE 49637012620 No Longer Active Connie Reyes APRN Active BACTRIM DS 800-160 MG ORAL TABLET 1 tab by mouth twice daily TRIMETHOPRIM-SULFAMETHOXAZOLE 19500706801 No Longer Active Cayetano Skinner MD Active ZITHROMAX Z-MARTI 250 MG ORAL TABLET 2 today, then 1 daily for 4 days AZITHROMYCIN 12195905255 No Longer Active Jensen Santiago MD Active CETIRIZINE HCL 10 MG ORAL TABLET ONE DAILY CETIRIZINE HCL 81703363517 No Longer Active Jensen Santiago MD Active KLONOPIN 1 MG ORAL TABLET 1/2 tab bid CLONAZEPAM 57189126248 No Longer Active Jensen Santiago MD Active ZOLPIDEM TARTRATE 10 MG ORAL TABLET 1 q hs as needed for sleep ZOLPIDEM TARTRATE 20335908994 No Longer Active Jensen Santiago MD Active CELEXA 40 MG ORAL TABLET Take one by mouth daily CITALOPRAM HYDROBROMIDE 38892229278 No Longer Active Jensen Santiago MD Active AMOXICILLIN 875 MG ORAL TABLET 1 tab by mouth twice daily AMOXICILLIN 94109492204 No Longer Active Cayetano Skinner MD Active FLAGYL 500 MG ORAL TABLET 1 tablet by mouth two times daily METRONIDAZOLE 38249679620 No Longer Active Cayetano Skinner MD Active FLAGYL 500 MG ORAL TABLET 1 tablet by mouth two times daily METRONIDAZOLE 77968641149 No Longer Active Cayetano Skinner MD Active BUSPIRONE HCL 15 MG ORAL TABLET 1/2 PO BID BUSPIRONE HCL 46943486405 No Longer Active Cayetano Skinner MD Active BUSPIRONE HCL 15 MG ORAL TABLET 1/2 PO BID BUSPIRONE HCL 15 MG ORAL TABLET 719058 BUSPIRONE HCL Inactive CELEXA 40 MG ORAL TABLET Take one by mouth daily CELEXA 40 MG ORAL TABLET 623608 CITALOPRAM HYDROBROMIDE Inactive ZOLPIDEM TARTRATE 10 MG ORAL TABLET 1 q hs as needed for sleep ZOLPIDEM TARTRATE 10 MG ORAL TABLET 297842 ZOLPIDEM TARTRATE Inactive KLONOPIN 1 MG ORAL TABLET 1/2 tab bid KLONOPIN 1 MG ORAL TABLET 223721 CLONAZEPAM Inactive CETIRIZINE HCL 10 MG ORAL TABLET ONE DAILY CETIRIZINE HCL 10 MG ORAL TABLET 4894877 CETIRIZINE HCL Inactive HYDROCORTISONE 2.5 % EXTERNAL CREAM Apply three times a day to affected area HYDROCORTISONE 2.5 % EXTERNAL CREAM 011006 HYDROCORTISONE Inactive SUBOXONE 8-2 MG SUBL 2 po qd SUBOXONE 8-2 MG SUBL BUPRENORPHINE HCL-NALOXONE HCL Inactive CIPRO 500 MG ORAL TABLET 1 tablet by mouth twice daily CIPRO 500 MG ORAL TABLET 484004 CIPROFLOXACIN HCL Inactive MACROBID CAPSULE 1 cap po qd. MACROBID CAPSULE NITROFURANTOIN MONOHYD MACRO CAPS Inactive LUNESTA 1 MG ORAL TABLET 1 po qHS PRN Insomnia LUNESTA 1 MG ORAL TABLET 120656 ESZOPICLONE Inactive FLAGYL 500 MG ORAL TABLET 1 tablet by mouth two times daily FLAGYL 500 MG ORAL TABLET 100650 METRONIDAZOLE Inactive FLAGYL 500 MG ORAL TABLET 1 tablet by mouth two times daily FLAGYL 500 MG ORAL TABLET 353147 METRONIDAZOLE Inactive AMOXICILLIN 875 MG ORAL TABLET 1 tab by mouth twice daily AMOXICILLIN 875 MG ORAL TABLET 167518 AMOXICILLIN Inactive ZITHROMAX Z-MARTI 250 MG ORAL TABLET 2 today, then 1 daily for 4 days ZITHROMAX Z-MARTI 250 MG ORAL TABLET 834772 AZITHROMYCIN Inactive BACTRIM DS 800-160 MG ORAL TABLET 1 tab by mouth twice daily BACTRIM DS 800-160 MG ORAL TABLET 093712 TRIMETHOPRIM-SULFAMETHOXAZOLE Inactive AUGMENTIN 500-125 MG ORAL TABLET Take 1 capsule by mouth three times a day X 10 days AUGMENTIN 500-125 MG ORAL TABLET 264566 AMOXICILLIN- POT CLAVULANATE Inactive MACROBID 100 MG ORAL CAPSULE Take one by mouth daily MACROBID 100 MG ORAL CAPSULE 9821770 NITROFURANTOIN MONOHYD MACRO Inactive Immunizations Vaccine Administration Date Value Standard Description Seasonal influenza vaccine, injectable, containing preservative, for > 3 years old (Afluria, FluLaval, Fluzone, Fluvirin, Fluarix, Agriflu(>=18 yo)) Fluzone (>3 yrs.) [[id number]] Influenza, seasonal, injectable Vital Signs Date Name [...] Range Description Lab Report: C-REACTIVE PROTEIN, HIV-1/2 Agn/[place]/98818, Drug Abuse Pnl 10 ... - Chemistry rapid plasma reagin antibody titer NON-REACTIVE NON-REACTIVE Lab Report: C-REACTIVE PROTEIN, HIV-1/2 Agn/[place]/61301, Drug Abuse Pnl 10 ... - Lab chlamydia DNA probe NOT DETECTED NOT DETECTED Lab Report: C-REACTIVE PROTEIN, HIV-1/2 Agn/[place]/69554, Drug Abuse Pnl 10 ... - Microbiology Neisseria gonorrhoeae DNA probe NOT DETECTED NOT DETECTED Lab Report: CBC W/DIFF, Comp. Metabolic Panel, Free Thyroxine (L), Thyro ... - Chemistry sodium, serum 138 mmol/L 159-030 7959/09/12 carbon dioxide, venous blood 29.9 mmol/L 21.0-32.0 [...] 5.0-8.5 Encounters Code Encounter Date Provider Facility CPT-03599 Level 4 Est. Patient 22:21:42 CDT Dorothy Ayala [facility] [place] CPT-54510 Level 4 Est. Patient 21:18:20 CDT Dorothy Ayala [facility] [place] [facility] [place] CPT-91963 Level 3 Est. Patient 10:06:58 CDT Dorothy Ayala [facility] [place] [facility] [place] CPT-46933 Level 3 Est. Patient 09:36:26 CDT Dorothy Ayala [facility] [place] [facility] [place] CPT-31830 Level 3 Est. Patient 16:55:26 CDT Cayetano Skinner MD [facility] CPT-96451 Level 2 Est. Patient 11:28:42 CDT Kimberly Brown MD [facility] CPT-75863 Level 3 Est. Patient 15:04:35 CDT Cayetano Skinner MD [facility] CPT-14721 Level 3 Est. Patient 15:07:05 DISTRICT SUPERVISOR Cayetano Skinner MD [facility] CPT-88619 Level 3 Est. Patient 09:56:19 CDT Connie Amy H[place] [facility] CPT-28175 Level 3 Est. Patient 12:31:18 DISTRICT SUPERVISOR Jensen Santiago MD [facility] CPT-34016 Level 3 Est. Patient 10:35:02 DISTRICT SUPERVISOR Cayetano Skinner MD [facility] CPT-15502 Level 3 Est. Patient 12:50:08 DISTRICT SUPERVISOR Cayetano Skinner MD [facility] Procedures Code Procedure Name Date Entry Date Standard Description CPT-56100 Venipuncture Draw Fee 10:10:37 CDT CPT-58430 [facility] - [facility] 10:06:58 CDT CPT-35047 Bladder Scan 19:49:06 DISTRICT SUPERVISOR CPT-78055 Spec Collection and Handling Fee 11:57:40 CDT CPT-J1020 Depo Medrol 60 mg (Methyl Prednisolone Acetate) 12:03:49 CDT CPT-95489 Abx/Therapy Injection 12:03:48 CDT CPT-J1020 Depo Medrol 60 mg (Methyl Prednisolone Acetate) 09:56:19 CDT CPT-69442 Spec Collection and Handling Fee 12:10:42 CDT CPT-PV Prev. Care Visit 12:10:42 CDT CPT-59865 Administration single or combination vaccine inc oral 16:45:52 DISTRICT SUPERVISOR CPT-45823 Influenza split virus > age 3 16:45:52 DISTRICT SUPERVISOR CPT-55641 Spec Collection and Handling Fee 10:35:02 DISTRICT SUPERVISOR
--- OUTSIDE RECORDS SUMMARY | 2019-04-22 11:06 | XMS REPORT | Clinical Summary ---
Author Author Admin, [place] Organization [facility] Address Unknown Phone Unavailable Allergies, Adverse Reactions, [...] elsewhere classified Pruritus 698.9 Active Fadiaina Derrelll LAND ACQUISITION MANAGER Unspecified pruritic disorder Urticaria 708.9 Active [...] 1 tab po q am RANITIDINE HCL 73494920521 Active Jillina Frazell LAND ACQUISITION MANAGER Active ZYRTEC ALLERGY 10 MG CAPS 1 po am CETIRIZINE HCL 84858925685 Active Jillina Frazell LAND ACQUISITION MANAGER Active PREDNISONE 20 MG TAB 2 tabs daily for 4 days, 1 tab daily for 4 days, /2 tab daily for 4 days PREDNISONE 86702127234 Active Dorothy Scotttamara [place] Active VENLAFAXINE HCL 75 MG ORAL TABS 1.5 po BID VENLAFAXINE HCL 39750307547 Active Cayetano Skinner MD Active TRAZODONE HCL 100 MG ORAL TABS 0.5 to 1 po qHS PRN Insomnia TRAZODONE HCL 41651089254 Active Cayetano Skinner MD Active SERTRALINE HCL 100 MG ORAL TABS 2 po qd SERTRALINE HCL 99671624633 No Longer Active Cayetano Skinner MD Active MACROBID CAPS 1 cap po qd. NITROFURANTOIN MONOHYD MACRO CAPS 16768335849 No Longer Active Kimberly Brown MD Active SUBOXONE 8-2 MG SL FILM 1 1/2 STRIPS QD BUPRENORPHINE HCL-NALOXONE HCL 18539839110 Active Cayetano Skinner MD Active CIPRO 500 MG TAB 1 tablet by mouth twice daily CIPROFLOXACIN HCL 57815433790 No Longer Active Cayetano Skinner MD Active MACROBID 100 MG ORAL CAPS Take one by mouth daily NITROFURANTOIN MONOHYD MACRO 01557433672 No Longer Active Kimberly Brown MD Active SUBOXONE 8-2 MG SUBL 2 po qd BUPRENORPHINE HCL-NALOXONE HCL 74227840424 No Longer Active Kimberly Brown MD Active HYDROCORTISONE 2.5 % EXT CREA Apply three times a day to affected area HYDROCORTISONE 29509814959 No Longer Active Kimberly Brown MD Active AUGMENTIN 500-125 MG TAB Take 1 capsule by mouth three times a day X 10 days AMOXICILLIN-POT CLAVULANATE 74188624602 No Longer Active Connie Reyes APRN Active BACTRIM DS 800-160 MG TAB 1 tab by mouth twice daily TRIMETHOPRIM-SULFAMETHOXAZOLE 24514836562 No Longer Active Cayetano Skinner MD Active ZITHROMAX Z-MARTI 250 MG TABS 2 today, then 1 daily for 4 days AZITHROMYCIN 42281134093 No Longer Active Jensen Santiago MD Active CETIRIZINE HCL 10 MG TABS ONE DAILY CETIRIZINE HCL 76353308691 No Longer Active Jensen Santiago MD Active KLONOPIN 1 MG TAB 1/2 tab bid CLONAZEPAM 84351810313 No Longer Active Jensen Santiago MD Active ZOLPIDEM TARTRATE 10 MG TABS 1 q hs as needed for sleep ZOLPIDEM TARTRATE 01392616180 No Longer Active Jensen Santiago MD Active CELEXA 40 MG TABS Take one by mouth daily CITALOPRAM HYDROBROMIDE 54252487253 No Longer Active Jensen Santiago MD Active AMOXICILLIN 875 MG TABS 1 tab by mouth twice daily AMOXICILLIN 56335208908 No Longer Active Cayetano Skinner MD Active FLAGYL 500 MG TAB 1 tablet by mouth two times daily METRONIDAZOLE 36386774402 No Longer Active Cayetano Skinner MD Active FLAGYL 500 MG TAB 1 tablet by mouth two times daily METRONIDAZOLE 59737237688 No Longer Active Cayetano Skinner MD Active BUSPIRONE HCL 15 MG TABS 1/2 PO BID BUSPIRONE HCL 23786344023 No Longer Active Cayetano Skinner MD Active BUSPIRONE HCL 15 MG TABS 1/2 PO BID BUSPIRONE HCL 15 MG TABS 107967 BUSPIRONE HCL Inactive CELEXA 40 MG TABS Take one by mouth daily CELEXA 40 MG TABS 286445 CITALOPRAM HYDROBROMIDE Inactive ZOLPIDEM TARTRATE 10 MG TABS 1 q hs as needed for sleep ZOLPIDEM TARTRATE 10 MG TABS 342086 ZOLPIDEM TARTRATE Inactive KLONOPIN 1 MG TAB 1/2 tab bid KLONOPIN 1 MG TAB 541671 CLONAZEPAM Inactive CETIRIZINE HCL 10 MG TABS ONE DAILY CETIRIZINE HCL 10 MG TABS 7872974 CETIRIZINE HCL Inactive HYDROCORTISONE 2.5 % EXT CREA Apply three times a day to affected area HYDROCORTISONE 2.5 % EXT CREA 563343 HYDROCORTISONE Inactive SUBOXONE 8-2 MG SUBL 2 po qd SUBOXONE 8-2 MG SUBL BUPRENORPHINE HCL-NALOXONE HCL Inactive CIPRO 500 MG TAB 1 tablet by mouth twice daily CIPRO 500 MG TAB 379876 CIPROFLOXACIN HCL Inactive MACROBID CAPS 1 cap po qd. MACROBID CAPS NITROFURANTOIN MONOHYD MACRO CAPS Inactive FLAGYL 500 MG TAB 1 tablet by mouth two times daily FLAGYL 500 MG TAB 245461 METRONIDAZOLE Inactive FLAGYL 500 MG TAB 1 tablet by mouth two times daily FLAGYL 500 MG TAB 559626 METRONIDAZOLE Inactive AMOXICILLIN 875 MG TABS 1 tab by mouth twice daily AMOXICILLIN 875 MG TABS 373716 AMOXICILLIN Inactive ZITHROMAX Z-MARTI 250 MG TABS 2 today, then 1 daily for 4 days ZITHROMAX Z-MARTI 250 MG TABS 1613020 AZITHROMYCIN Inactive BACTRIM DS 800-160 MG TAB 1 tab by mouth twice daily BACTRIM DS 800-160 MG TAB 489799 TRIMETHOPRIM-SULFAMETHOXAZOLE Inactive AUGMENTIN 500-125 MG TAB Take 1 capsule by mouth three times a day X 10 days AUGMENTIN 500-125 MG TAB 292223 AMOXICILLIN-POT CLAVULANATE Inactive MACROBID 100 MG ORAL CAPS Take one by mouth daily MACROBID 100 MG ORAL CAPS 4210219 NITROFURANTOIN MONOHYD MACRO Inactive Immunizations Vaccine Administration Date Value Standard Description Seasonal influenza vaccine, injectable, containing preservative, for > 3 years old (Afluria, FluLaval, Fluzone, Fluvirin, Fluarix, Agriflu(>=18 yo)) Fluzone (>3 yrs.) [[id number]] Influenza, seasonal, injectable Vital Signs Date Name [...] Range Description Lab Report: C-REACTIVE PROTEIN, HIV-1/2 Agn/[place]/94705, Drug Abuse Pnl 10 ... - Chemistry rapid plasma reagin antibody titer NON-REACTIVE NON-REACTIVE Lab Report: C-REACTIVE PROTEIN, HIV-1/2 Agn/[place]/85147, Drug Abuse Pnl 10 ... - Lab chlamydia DNA probe NOT DETECTED NOT DETECTED Lab Report: C-REACTIVE PROTEIN, HIV-1/2 Agn/[place]/46733, Drug Abuse Pnl 10 ... - Microbiology Neisseria gonorrhoeae DNA probe NOT DETECTED NOT DETECTED Lab Report: CBC W/DIFF, Comp. Metabolic Panel, Free Thyroxine (L), Thyro ... - Chemistry sodium, serum 138 mmol/L 668-811 8361/09/12 carbon dioxide, venous blood 29.9 mmol/L 21.0-32.0 [...] 5.0-8.5 Encounters Code Encounter Date Provider Facility CPT-68215 Level 4 Est. Patient 22:21:42 CDT Dorothy Ayala [facility] CPT-88675 Level 4 Est. Patient 21:18:20 CDT Dorothy Ayala [facility] CPT-81691 Level 3 Est. Patient 10:06:58 CDT Dorothy Dovesegun [facility] CPT-28309 Level 3 Est. Patient 09:36:26 CDT Dorothy Ayala [facility] CPT-99618 Level 3 Est. Patient 16:55:26 CDT Cayetano Skinner MD [facility] CPT-25356 Level 2 Est. Patient 11:28:42 CDT Kimberly Brown MD [facility] CPT-88042 Level 3 Est. Patient 15:04:35 CDT Cayetano Skinner MD [facility] CPT-04604 Level 3 Est. 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 Patient 09:56:19 CDT Connie Reyes [facility] CPT-19985 Level 3 Est. Patient 12:31:18 ANODE MACHINE OPERATOR Jensen Santiago MD [facility] CPT-86445 Level 3 Est. Patient 10:35:02 ANODE MACHINE OPERATOR Cayetano Skinner MD [facility] CPT-99063 Level 3 Est. Patient 12:50:08 ANODE MACHINE OPERATOR Cayetano Skinner MD [facility] Procedures Code Procedure Name Date Entry Date Standard Description CPT-10989 Venipuncture Draw Fee 10:10:37 CDT CPT-74224 [facility] - [facility] 10:06:58 CDT CPT-42712 Bladder Scan 19:49:06 ANODE MACHINE OPERATOR CPT-84210 Spec Collection and Handling Fee 11:57:40 CDT CPT-J1020 Depo Medrol 60 mg (Methyl Prednisolone Acetate) 12:03:49 CDT CPT-57470 Abx/Therapy Injection 12:03:48 CDT CPT-J1020 Depo Medrol 60 mg (Methyl Prednisolone Acetate) 09:56:19 CDT CPT-29167 Spec Collection and Handling Fee 12:10:42 CDT CPT-PV Prev. Care Visit 12:10:42 CDT CPT-84594 Administration single or combination vaccine inc oral 16:45:52 ANODE MACHINE OPERATOR CPT-05104 Influenza split virus > age 3 16:45:52 ANODE MACHINE OPERATOR CPT-45285 Spec Collection and Handling Fee 10:35:02 ANODE MACHINE OPERATOR
--- OUTSIDE RECORDS SUMMARY | 2019-04-22 11:06 | XMS REPORT | Clinical Summary ---
Author Author Admin, [place] Organization [employer] Address Unknown Phone Unavailable Allergies, Adverse Reactions, [...] drug abuse, unspecified use PHARYNGITIS 462 Resolved Cayteano Skinner MD Acute pharyngitis Dysuria 788.1 Resolved [...] ORAL TABS 1 po BID VENLAFAXINE HCL 82823377828 Active Cayetnao Skinner MD Active SERTRALINE HCL 100 MG ORAL TABS 2 po qd SERTRALINE HCL 12904608257 No Longer Active Cayetano Skinner MD Active MACROBID CAPS 1 cap po qd. NITROFURANTOIN MONOHYD MACRO CAPS 65237060594 No Longer Active Kimberly Brown MD Active SUBOXONE 8-2 MG SL FILM 1 1/2 STRIPS QD BUPRENORPHINE HCL-NALOXONE HCL 72203126183 Active Cayetano Skinner MD Active CIPRO 500 MG TAB 1 tablet by mouth twice daily CIPROFLOXACIN HCL 06834184491 No Longer Active Cayetano Skinner MD Active MACROBID 100 MG ORAL CAPS Take one by mouth daily NITROFURANTOIN MONOHYD MACRO 31758128058 No Longer Active Kimberly Brown MD Active SUBOXONE 8-2 MG SUBL 2 po qd BUPRENORPHINE HCL-NALOXONE HCL 63983779431 No Longer Active Kimberly Brown MD Active HYDROCORTISONE 2.5 % EXT CREA Apply three times a day to affected area HYDROCORTISONE 15946524691 No Longer Active Kimberly Brown MD Active AUGMENTIN 500-125 MG TAB Take 1 capsule by mouth three times a day X 10 days AMOXICILLIN-POT CLAVULANATE 14868479291 No Longer Active Connie Reyes APRN Active BACTRIM DS 800-160 MG TAB 1 tab by mouth twice daily TRIMETHOPRIM-SULFAMETHOXAZOLE 29933528617 No Longer Active Cayetano Skinner MD Active ZITHROMAX Z-MARTI 250 MG TABS 2 today, then 1 daily for 4 days AZITHROMYCIN 92276862160 No Longer Active Jensen Santiago MD Active CETIRIZINE HCL 10 MG TABS ONE DAILY CETIRIZINE HCL 34253776426 No Longer Active Jensen Santiago MD Active KLONOPIN 1 MG TAB 1/2 tab bid CLONAZEPAM 61744530569 No Longer Active Jensen Santiago MD Active ZOLPIDEM TARTRATE 10 MG TABS 1 q hs as needed for sleep ZOLPIDEM TARTRATE 05496043344 No Longer Active Jensen Santiago MD Active CELEXA 40 MG TABS Take one by mouth daily CITALOPRAM HYDROBROMIDE 13163408475 No Longer Active Jensen Santiago MD Active AMOXICILLIN 875 MG TABS 1 tab by mouth twice daily AMOXICILLIN 84831529569 No Longer Active Cayetano Skinner MD Active FLAGYL 500 MG TAB 1 tablet by mouth two times daily METRONIDAZOLE 46400562557 No Longer Active Cayetano Skinner MD Active FLAGYL 500 MG TAB 1 tablet by mouth two times daily METRONIDAZOLE 00979936328 No Longer Active Cayetano Skinner MD Active BUSPIRONE HCL 15 MG TABS 1/2 PO BID BUSPIRONE HCL 70495583311 No Longer Active Cayetano Skinner MD Active BUSPIRONE HCL 15 MG TABS 1/2 PO BID BUSPIRONE HCL 15 MG TABS 068789 BUSPIRONE HCL Inactive CELEXA 40 MG TABS Take one by mouth daily CELEXA 40 MG TABS 396080 CITALOPRAM HYDROBROMIDE Inactive ZOLPIDEM TARTRATE 10 MG TABS 1 q hs as needed for sleep ZOLPIDEM TARTRATE 10 MG TABS 043816 ZOLPIDEM TARTRATE Inactive KLONOPIN 1 MG TAB 1/2 tab bid KLONOPIN 1 MG TAB 652892 CLONAZEPAM Inactive CETIRIZINE HCL 10 MG TABS ONE DAILY CETIRIZINE HCL 10 MG TABS 2342780 CETIRIZINE HCL Inactive HYDROCORTISONE 2.5 % EXT CREA Apply three times a day to affected area HYDROCORTISONE 2.5 % EXT CREA 713306 HYDROCORTISONE Inactive SUBOXONE 8-2 MG SUBL 2 po qd SUBOXONE 8-2 MG SUBL BUPRENORPHINE HCL-NALOXONE HCL Inactive CIPRO 500 MG TAB 1 tablet by mouth twice daily CIPRO 500 MG TAB 299732 CIPROFLOXACIN HCL Inactive MACROBID CAPS 1 cap po qd. MACROBID CAPS NITROFURANTOIN MONOHYD MACRO CAPS Inactive FLAGYL 500 MG TAB 1 tablet by mouth two times daily FLAGYL 500 MG TAB 260315 METRONIDAZOLE Inactive FLAGYL 500 MG TAB 1 tablet by mouth two times daily FLAGYL 500 MG TAB 444947 METRONIDAZOLE Inactive AMOXICILLIN 875 MG TABS 1 tab by mouth twice daily AMOXICILLIN 875 MG TABS 956354 AMOXICILLIN Inactive ZITHROMAX Z-MARTI 250 MG TABS 2 today, then 1 daily for 4 days ZITHROMAX Z-MARTI 250 MG TABS 9388590 AZITHROMYCIN Inactive BACTRIM DS 800-160 MG TAB 1 tab by mouth twice daily BACTRIM DS 800-160 MG TAB 945540 TRIMETHOPRIM-SULFAMETHOXAZOLE Inactive AUGMENTIN 500-125 MG TAB Take 1 capsule by mouth three times a day X 10 days AUGMENTIN 500-125 MG TAB 636023 AMOXICILLIN-POT CLAVULANATE Inactive MACROBID 100 MG ORAL CAPS Take one by mouth daily MACROBID 100 MG ORAL CAPS 2118013 NITROFURANTOIN MONOHYD MACRO Inactive Immunizations Vaccine Administration Date Value Standard Description Seasonal influenza vaccine, injectable, containing preservative, for > 3 years old (Afluria, FluLaval, Fluzone, Fluvirin, Fluarix, Agriflu(>=18 yo)) Fluzone (>3 yrs.) [[id number]] Influenza, seasonal, injectable Vital Signs Date Name [...] Measured Encounters Code Encounter Date Provider Facility CPT-82329 Level 3 Est. Patient 16:55:26 CDT Cayetano Skinner MD [facility] CPT-95890 Level 2 Est. Patient 11:28:42 CDT Kimberly Brown MD [facility] CPT-22058 Level 3 Est. Patient 15:04:35 CDT Cayetano Skinner MD [facility] CPT-14131 Level 3 Est. Patient 15:07:05 UNDER CUTTING MACHINE OPERATOR Cayetano Skinner MD [facility] CPT-44097 Level 3 Est. Patient 09:56:19 CDT Connie Reyes APRN [facility] CPT-17768 Level 3 Est. Patient 12:31:18 UNDER CUTTING MACHINE OPERATOR Jensen Santiago MD [facility] CPT-84605 Level 3 Est. Patient 10:35:02 UNDER CUTTING MACHINE OPERATOR Cayetano Skinner MD [facility] CPT-75215 Level 3 Est. Patient 12:50:08 UNDER CUTTING MACHINE OPERATOR Cayetano Skinner MD [facility] Procedures Code Procedure Name Date Entry Date Standard Description CPT-30190 Bladder Scan 19:49:06 UNDER CUTTING MACHINE OPERATOR CPT-81271 Spec Collection and Handling Fee 11:57:40 CDT CPT-J1020 Depo Medrol 60 mg (Methyl Prednisolone Acetate) 12:03:49 CDT CPT-82072 Abx/Therapy Injection 12:03:48 CDT CPT-J1020 Depo Medrol 60 mg (Methyl Prednisolone Acetate) 09:56:19 CDT CPT-57018 Spec Collection and Handling Fee 12:10:42 CDT CPT-PV Prev. Care Visit 12:10:42 CDT CPT-49149 Administration single or combination vaccine inc oral 16:45:52 UNDER CUTTING MACHINE OPERATOR CPT-45000 Influenza split virus > age 3 16:45:52 UNDER CUTTING MACHINE OPERATOR CPT-81079 Spec Collection and Handling Fee 10:35:02 UNDER CUTTING MACHINE OPERATOR
--- OUTSIDE RECORDS SUMMARY | 2019-04-22 11:07 | XMS REPORT | Clinical Summary ---
Author Author Admin, [place] Organization [facility] Address Unknown Phone Unavailable Allergies, [...] days, then 1 po qd SERTRALINE HCL 49831775368 Active Cayetano Skinner MD Active SUBOXONE 8-2 MG SL FILM 1 1/2 STRIPS QD BUPRENORPHINE HCL-NALOXONE HCL 85903522167 Active Cayetano Skinner MD Active CIPRO 500 MG TAB 1 tablet by mouth twice daily CIPROFLOXACIN HCL 98647445555 No Longer Active Cayetano Skinner MD Active MACROBID 100 MG ORAL CAPS Take one by mouth daily NITROFURANTOIN MONOHYD MACRO 32733167047 Active Kimberly Brown MD Active SUBOXONE 8-2 MG SUBL 2 po qd BUPRENORPHINE HCL-NALOXONE HCL 39080702422 No Longer Active Kimberly Brown MD Active HYDROCORTISONE 2.5 % EXT CREA Apply three times a day to affected area HYDROCORTISONE 35279098068 No Longer Active Kimberly Brown MD Active AUGMENTIN 500-125 MG TAB Take 1 capsule by mouth three times a day X 10 days AMOXICILLIN-POT CLAVULANATE 59792129514 No Longer Active Connie Reyes APRN Active BACTRIM DS 800-160 MG TAB 1 tab by mouth twice daily TRIMETHOPRIM-SULFAMETHOXAZOLE 57901447424 No Longer Active Cayetano Skinner MD Active ZITHROMAX Z-MARTI 250 MG TABS 2 today, then 1 daily for 4 days AZITHROMYCIN 16874674248 No Longer Active Jensen Santiago MD Active CETIRIZINE HCL 10 MG TABS ONE DAILY CETIRIZINE HCL 96055740689 No Longer Active Jensen Santiago MD Active KLONOPIN 1 MG TAB 1/2 tab bid CLONAZEPAM 66848443524 No Longer Active Jensen Santiago MD Active ZOLPIDEM TARTRATE 10 MG TABS 1 q hs as needed for sleep ZOLPIDEM TARTRATE 69264229319 No Longer Active Jensen Santiago MD Active CELEXA 40 MG TABS Take one by mouth daily CITALOPRAM HYDROBROMIDE 38856038438 No Longer Active Jensen Santiago MD Active AMOXICILLIN 875 MG TABS 1 tab by mouth twice daily AMOXICILLIN 21731667053 No Longer Active Cayetano Skinner MD Active FLAGYL 500 MG TAB 1 tablet by mouth two times daily METRONIDAZOLE 93254499311 No Longer Active Cayetano Skinner MD Active FLAGYL 500 MG TAB 1 tablet by mouth two times daily METRONIDAZOLE 20929212726 No Longer Active Cayetano Skinner MD Active BUSPIRONE HCL 15 MG TABS 1/2 PO BID BUSPIRONE HCL 81600155837 No Longer Active Cayetano Skinner MD Active BUSPIRONE HCL 15 MG TABS 1/2 PO BID BUSPIRONE HCL 15 MG TABS 504671 BUSPIRONE HCL Inactive CELEXA 40 MG TABS Take one by mouth daily CELEXA 40 MG TABS 833651 CITALOPRAM HYDROBROMIDE Inactive ZOLPIDEM TARTRATE 10 MG TABS 1 q hs as needed for sleep ZOLPIDEM TARTRATE 10 MG TABS 735738 ZOLPIDEM TARTRATE Inactive KLONOPIN 1 MG TAB 1/2 tab bid KLONOPIN 1 MG TAB 295069 CLONAZEPAM Inactive CETIRIZINE HCL 10 MG TABS ONE DAILY CETIRIZINE HCL 10 MG TABS 6058207 CETIRIZINE HCL Inactive HYDROCORTISONE 2.5 % EXT CREA Apply three times a day to affected area HYDROCORTISONE 2.5 % EXT CREA 913037 HYDROCORTISONE Inactive SUBOXONE 8-2 MG SUBL 2 po qd SUBOXONE 8-2 MG SUBL BUPRENORPHINE HCL-NALOXONE HCL Inactive CIPRO 500 MG TAB 1 tablet by mouth twice daily CIPRO 500 MG TAB 371885 CIPROFLOXACIN HCL Inactive FLAGYL 500 MG TAB 1 tablet by mouth two times daily FLAGYL 500 MG TAB 876879 METRONIDAZOLE Inactive FLAGYL 500 MG TAB 1 tablet by mouth two times daily FLAGYL 500 MG TAB 906020 METRONIDAZOLE Inactive AMOXICILLIN 875 MG TABS 1 tab by mouth twice daily AMOXICILLIN 875 MG TABS 765433 AMOXICILLIN Inactive ZITHROMAX Z-MARTI 250 MG TABS 2 today, then 1 daily for 4 days ZITHROMAX Z-MARTI 250 MG TABS 3263068 AZITHROMYCIN Inactive BACTRIM DS 800-160 MG TAB 1 tab by mouth twice daily BACTRIM DS 800-160 MG TAB 137344 TRIMETHOPRIM-SULFAMETHOXAZOLE Inactive AUGMENTIN 500-125 MG TAB Take 1 capsule by mouth three times a day X 10 days AUGMENTIN 500-125 MG TAB 731366 AMOXICILLIN-POT CLAVULANATE Inactive Immunizations Vaccine Administration Date Value Standard Description Seasonal influenza vaccine, injectable, containing preservative, for > 3 years old (Afluria, FluLaval, Fluzone, Fluvirin, Fluarix, Agriflu(>=18 yo)) Fluzone (>3 yrs.) [[id number]] Influenza, seasonal, injectable Vital Signs Date Name [...] Measured Encounters Code Encounter Date Provider Facility CPT-28894 Level 3 Est. 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 Patient 09:56:19 CDT Connie Reyes APRN [facility] CPT-64285 Level 3 Est. Patient 12:31:18 OIL FIELD RIG BUILDER Jensen Santiago MD [facility] CPT-40595 Level 3 Est. Patient 10:35:02 OIL FIELD RIG BUILDER Cayetano Skinner MD [facility] CPT-62963 Level 3 Est. Patient 12:50:08 OIL FIELD RIG BUILDER Cayetano Skinner MD [facility] Procedures Code Procedure Name Date Entry Date Standard Description CPT-14048 Bladder Scan 19:49:06 OIL FIELD RIG BUILDER CPT-89485 Spec Collection and Handling Fee 11:57:40 CDT CPT-J1020 Depo Medrol 60 mg (Methyl Prednisolone Acetate) 12:03:49 CDT CPT-57290 Abx/Therapy Injection 12:03:48 CDT CPT-J1020 Depo Medrol 60 mg (Methyl Prednisolone Acetate) 09:56:19 CDT CPT-63855 Spec Collection and Handling Fee 12:10:42 CDT CPT-PV Prev. Care Visit 12:10:42 CDT CPT-80556 Administration single or combination vaccine inc oral 16:45:52 OIL FIELD RIG BUILDER CPT-33707 Influenza split virus > age 3 16:45:52 OIL FIELD RIG BUILDER CPT-50804 Spec Collection and Handling Fee 10:35:02 OIL FIELD RIG BUILDER
--- OUTSIDE RECORDS SUMMARY | 2019-04-22 11:07 | XMS REPORT | Clinical Summary ---
Author Author Admin, [facility] Organization [facility] Address Unknown Phone Unavailable Allergies, Adverse [...] disorder, not elsewhere classified Pruritus 698.9 Active Doorthy Ayala APRN Unspecified pruritic disorder Urticaria 708.9 [...] Skinner MD Pre-employment exam ICD-V70.5 Inactive Cayetano Skinenr MD Medication List Medication Instructions Start Date Stop Date Generic Name NDC Status Provider Patient Instruction ZANTAC 150 MG TAB 1 tab po q am RANITIDINE HCL 88278849943 Active Jillina Frazell SET UP PERSON Active ZYRTEC ALLERGY 10 MG CAPS 1 po am CETIRIZINE HCL 90548671534 Active Jillina Frazell SET UP PERSON Active PREDNISONE 20 MG TAB 2 tabs daily for 4 days, 1 tab daily for 4 days, 1/2 tab daily for 4 days PREDNISONE 04990560506 Active Dorothy Ayala APRN Active VENLAFAXINE HCL 75 MG ORAL TABS 1.5 po BID VENLAFAXINE HCL 00801321166 Active Cayetano Skinner MD Active TRAZODONE HCL 100 MG ORAL TABS 0.5 to 1 po qHS PRN Insomnia TRAZODONE HCL 20304019515 Active Cayetano Skinner MD Active SERTRALINE HCL 100 MG ORAL TABS 2 po qd SERTRALINE HCL 04592505125 No Longer Active Cayetano Skinner MD Active MACROBID CAPS 1 cap po qd. NITROFURANTOIN MONOHYD MACRO CAPS 32924583315 No Longer Active Kimberly Brown MD Active SUBOXONE 8-2 MG SL FILM 1 1/2 STRIPS QD BUPRENORPHINE HCL-NALOXONE HCL 95825464590 Active Cayetano Skinner MD Active CIPRO 500 MG TAB 1 tablet by mouth twice daily CIPROFLOXACIN HCL 77977629106 No Longer Active Cayetano Skinner MD Active MACROBID 100 MG ORAL CAPS Take one by mouth daily NITROFURANTOIN MONOHYD MACRO 48709045451 No Longer Active Kimberly Brown MD Active SUBOXONE 8-2 MG SUBL 2 po qd BUPRENORPHINE HCL-NALOXONE HCL 08829280219 No Longer Active Kimberly Brown MD Active HYDROCORTISONE 2.5 % EXT CREA Apply three times a day to affected area HYDROCORTISONE 01808688672 No Longer Active Kimberly Brown MD Active AUGMENTIN 500-125 MG TAB Take 1 capsule by mouth three times a day X 10 days AMOXICILLIN-POT CLAVULANATE 38141730530 No Longer Active Connie Reyes APRN Active BACTRIM DS 800-160 MG TAB 1 tab by mouth twice daily TRIMETHOPRIM-SULFAMETHOXAZOLE 53046883916 No Longer Active Cayetano Skinner MD Active ZITHROMAX Z-MARTI 250 MG TABS 2 today, then 1 daily for 4 days AZITHROMYCIN 97883065408 No Longer Active Jensen Santiago MD Active CETIRIZINE HCL 10 MG TABS ONE DAILY CETIRIZINE HCL 95472133812 No Longer Active Jensen Santiago MD Active KLONOPIN 1 MG TAB 1/2 tab bid CLONAZEPAM 67293000566 No Longer Active Jensen Santiago MD Active ZOLPIDEM TARTRATE 10 MG TABS 1 q hs as needed for sleep ZOLPIDEM TARTRATE 01145361695 No Longer Active Jensen Santiago MD Active CELEXA 40 MG TABS Take one by mouth daily CITALOPRAM HYDROBROMIDE 32799314215 No Longer Active Jensen Santiago MD Active AMOXICILLIN 875 MG TABS 1 tab by mouth twice daily AMOXICILLIN 82163964993 No Longer Active Cayetano Skinner MD Active FLAGYL 500 MG TAB 1 tablet by mouth two times daily METRONIDAZOLE 57580552573 No Longer Active Cayetano Skinner MD Active FLAGYL 500 MG TAB 1 tablet by mouth two times daily METRONIDAZOLE 93544231494 No Longer Active Cayetano Skinner MD Active BUSPIRONE HCL 15 MG TABS 1/2 PO BID BUSPIRONE HCL 99290448491 No Longer Active Cayetano Skinner MD Active BUSPIRONE HCL 15 MG TABS 1/2 PO BID BUSPIRONE HCL 15 MG TABS 520816 BUSPIRONE HCL Inactive CELEXA 40 MG TABS Take one by mouth daily CELEXA 40 MG TABS 002849 CITALOPRAM HYDROBROMIDE Inactive ZOLPIDEM TARTRATE 10 MG TABS 1 q hs as needed for sleep ZOLPIDEM TARTRATE 10 MG TABS 915230 ZOLPIDEM TARTRATE Inactive KLONOPIN 1 MG TAB 1/2 tab bid KLONOPIN 1 MG TAB 882433 CLONAZEPAM Inactive CETIRIZINE HCL 10 MG TABS ONE DAILY CETIRIZINE HCL 10 MG TABS 7056333 CETIRIZINE HCL Inactive HYDROCORTISONE 2.5 % EXT CREA Apply three times a day to affected area HYDROCORTISONE 2.5 % EXT CREA 388328 HYDROCORTISONE Inactive SUBOXONE 8-2 MG SUBL 2 po qd SUBOXONE 8-2 MG SUBL BUPRENORPHINE HCL-NALOXONE HCL Inactive CIPRO 500 MG TAB 1 tablet by mouth twice daily CIPRO 500 MG TAB 198375 CIPROFLOXACIN HCL Inactive MACROBID CAPS 1 cap po qd. MACROBID CAPS NITROFURANTOIN MONOHYD MACRO CAPS Inactive FLAGYL 500 MG TAB 1 tablet by mouth two times daily FLAGYL 500 MG TAB 876056 METRONIDAZOLE Inactive FLAGYL 500 MG TAB 1 tablet by mouth two times daily FLAGYL 500 MG TAB 214649 METRONIDAZOLE Inactive AMOXICILLIN 875 MG TABS 1 tab by mouth twice daily AMOXICILLIN 875 MG TABS 262002 AMOXICILLIN Inactive ZITHROMAX Z-MARTI 250 MG TABS 2 today, then 1 daily for 4 days ZITHROMAX Z-MARTI 250 MG TABS 9532614 AZITHROMYCIN Inactive BACTRIM DS 800-160 MG TAB 1 tab by mouth twice daily BACTRIM DS 800-160 MG TAB 918023 TRIMETHOPRIM-SULFAMETHOXAZOLE Inactive AUGMENTIN 500-125 MG TAB Take 1 capsule by mouth three times a day X 10 days AUGMENTIN 500-125 MG TAB 618823 AMOXICILLIN-POT CLAVULANATE Inactive MACROBID 100 MG ORAL CAPS Take one by mouth daily MACROBID 100 MG ORAL CAPS 8090199 NITROFURANTOIN MONOHYD MACRO Inactive Immunizations Vaccine Administration Date Value Standard Description Seasonal influenza vaccine, injectable, containing preservative, for > 3 years old (Afluria, FluLaval, Fluzone, Fluvirin, Fluarix, Agriflu(>=18 yo)) Fluzone (>3 yrs.) [[id number]] Influenza, seasonal, injectable Vital Signs Date Name [...] Range Description Lab Report: C-REACTIVE PROTEIN, HIV-1/2 Agn/[place]/83820, Drug Abuse Pnl 10 ... - Chemistry rapid plasma reagin antibody titer NON-REACTIVE NON-REACTIVE Lab Report: C-REACTIVE PROTEIN, HIV-1/2 Agn/[place]/60531, Drug Abuse Pnl 10 ... - Lab chlamydia DNA probe NOT DETECTED NOT DETECTED Lab Report: C-REACTIVE PROTEIN, HIV-1/2 Agn/[place]/31601, Drug Abuse Pnl 10 ... - Microbiology Neisseria gonorrhoeae DNA probe NOT DETECTED NOT DETECTED Lab Report: CBC W/DIFF, Comp. Metabolic Panel, Free Thyroxine (L), Thyro ... - Chemistry sodium, serum 138 mmol/L 177-411 9462/09/12 carbon dioxide, venous blood 29.9 mmol/L 21.0-32.0 [...] 5.0-8.5 Encounters Code Encounter Date Provider Facility CPT-09286 Level 3 Est. Patient 10:06:58 CDT Dorothy Ayala [facility] CPT-78470 Level 3 Est. Patient 09:36:26 CDT Dorothy Ayala [facility] CPT-55319 Level 3 Est. Patient 16:55:26 CDT Cayetano Skinner MD [facility] CPT-78558 Level 2 Est. Patient 11:28:42 CDT Kimberly Brown MD [facility] CPT-44372 Level 3 Est. Patient 15:04:35 CDT Cayetano Skinner MD [facility] CPT-92431 Level 3 Est. Patient 15:07:05 HEEL PRICKER Cayetano Skinner MD [facility] CPT-82929 Level 3 Est. Patient 09:56:19 CDT Connie Reyes APRN [facility] CPT-21959 Level 3 Est. Patient 12:31:18 HEEL PRICKER Jensen Santiago MD [facility] CPT-31185 Level 3 Est. Patient 10:35:02 HEEL PRICKER Cayetano Skinner MD [facility] CPT-15518 Level 3 Est. Patient 12:50:08 HEEL PRICKER Cayetano Skinner MD [facility] Procedures Code Procedure Name Date Entry Date Standard Description CPT-61945 Venipuncture Draw Fee 10:10:37 CDT CPT-22674 [facility] - [facility] 10:06:58 CDT CPT-26862 Bladder Scan 19:49:06 HEEL PRICKER CPT-06029 Spec Collection and Handling Fee 11:57:40 CDT CPT-J1020 Depo Medrol 60 mg (Methyl Prednisolone Acetate) 12:03:49 CDT CPT-68920 Abx/Therapy Injection 12:03:48 CDT CPT-J1020 Depo Medrol 60 mg (Methyl Prednisolone Acetate) 09:56:19 CDT CPT-58303 Spec Collection and Handling Fee 12:10:42 CDT CPT-PV Prev. Care Visit 12:10:42 CDT CPT-70144 Administration single or combination vaccine inc oral 16:45:52 HEEL PRICKER CPT-11246 Influenza split virus > age 3 16:45:52 HEEL PRICKER CPT-93476 Spec Collection and Handling Fee 10:35:02 HEEL PRICKER
--- OUTSIDE RECORDS SUMMARY | 2019-04-22 11:07 | XMS REPORT | Clinical Summary ---
Author Author Admin, [place] Organization [facility] Address Unknown Phone Unavailable Allergies, Adverse [...] a day X 10 days AMOXICILLIN-POT CLAVULANATE 40040590762 No Longer Active Connie Reyes APRN Active BACTRIM DS 800-160 MG TAB 1 tab by mouth twice daily TRIMETHOPRIM-SULFAMETHOXAZOLE 77960689009 No Longer Active Cayetano Skinner MD Active HYDROCORTISONE 2.5 % EXT CREA Apply three times a day to affected area HYDROCORTISONE 08542444813 Active Melinda Baxter APRN Active ZITHROMAX Z-MARTI 250 MG TABS 2 today, then 1 daily for 4 days AZITHROMYCIN 11007691473 No Longer Active Jensen Santiago MD Active SUBOXONE 8-2 MG SUBL 2 po qd BUPRENORPHINE HCL-NALOXONE HCL 07462798224 Active Jensen Santiago MD Active CETIRIZINE HCL 10 MG TABS ONE DAILY CETIRIZINE HCL 51823116282 No Longer Active Jensen Santiago MD Active KLONOPIN 1 MG TAB 1/2 tab bid CLONAZEPAM 68977118001 No Longer Active Jensen Santiago MD Active ZOLPIDEM TARTRATE 10 MG TABS 1 q hs as needed for sleep ZOLPIDEM TARTRATE 50957879551 No Longer Active Jensen Santiago MD Active CELEXA 40 MG TABS Take one by mouth daily CITALOPRAM HYDROBROMIDE 75833572333 No Longer Active Jensen Santiago MD Active AMOXICILLIN 875 MG TABS 1 tab by mouth twice daily AMOXICILLIN 41943970017 No Longer Active Cayetano Skinner MD Active FLAGYL 500 MG TAB 1 tablet by mouth two times daily METRONIDAZOLE 83044321077 No Longer Active Cayetano Skinner MD Active FLAGYL 500 MG TAB 1 tablet by mouth two times daily METRONIDAZOLE 33754014660 No Longer Active Cayetano Skinner MD Active BUSPIRONE HCL 15 MG TABS 1/2 PO BID BUSPIRONE HCL 30559412100 No Longer Active Cayetano Skinner MD Active BUSPIRONE HCL 15 MG TABS 1/2 PO BID BUSPIRONE HCL 15 MG TABS 751462 BUSPIRONE HCL Inactive CELEXA 40 MG TABS Take one by mouth daily CELEXA 40 MG TABS 275964 CITALOPRAM HYDROBROMIDE Inactive ZOLPIDEM TARTRATE 10 MG TABS 1 q hs as needed for sleep ZOLPIDEM TARTRATE 10 MG TABS 112690 ZOLPIDEM TARTRATE Inactive KLONOPIN 1 MG TAB 1/2 tab bid KLONOPIN 1 MG TAB 081482 CLONAZEPAM Inactive CETIRIZINE HCL 10 MG TABS ONE DAILY CETIRIZINE HCL 10 MG TABS 8677830 CETIRIZINE HCL Inactive FLAGYL 500 MG TAB 1 tablet by mouth two times daily FLAGYL 500 MG TAB 083438 METRONIDAZOLE Inactive FLAGYL 500 MG TAB 1 tablet by mouth two times daily FLAGYL 500 MG TAB 114483 METRONIDAZOLE Inactive AMOXICILLIN 875 MG TABS 1 tab by mouth twice daily AMOXICILLIN 875 MG TABS 607844 AMOXICILLIN Inactive ZITHROMAX Z-MARTI 250 MG TABS 2 today, then 1 daily for 4 days ZITHROMAX Z-MARTI 250 MG TABS 7635903 AZITHROMYCIN Inactive BACTRIM DS 800-160 MG TAB 1 tab by mouth twice daily BACTRIM DS 800-160 MG TAB 465891 TRIMETHOPRIM-SULFAMETHOXAZOLE Inactive AUGMENTIN 500-125 MG TAB Take 1 capsule by mouth three times a day X 10 days AUGMENTIN 500-125 MG TAB 279417 AMOXICILLIN-POT CLAVULANATE Inactive Immunizations Vaccine Administration Date Value Standard Description Seasonal influenza vaccine, injectable, containing preservative, for > 3 years old (Afluria, FluLaval, Fluzone, Fluvirin, Fluarix, Agriflu(>=18 yo)) Fluzone (>3 yrs.) [[id number]] Influenza, seasonal, injectable Vital Signs Date Name [...] 5.0-8.5 Encounters Code Encounter Date Provider Facility CPT-08608 Level 3 Est. Patient 09:56:19 CDT Connie Amy [facility] CPT-17230 Level 3 Est. Patient 12:31:18 CUSTOMER SERVICE SALES CONSULTANT Jensen Santiago MD [facility] CPT-24770 Level 3 Est. Patient 10:35:02 CUSTOMER SERVICE SALES CONSULTANT Cayetano Skinner MD [facility] CPT-24284 Level 3 Est. Patient 12:50:08 CUSTOMER SERVICE SALES CONSULTANT Cayetano Skinner MD [facility] Procedures Code Procedure Name Date Entry Date Standard Description CPT-34537 Spec Collection and Handling Fee 11:57:40 CDT CPT-J1020 Depo Medrol 60 mg (Methyl Prednisolone Acetate) 12:03:49 CDT CPT-78312 Abx/Therapy Injection 12:03:48 CDT CPT-J1020 Depo Medrol 60 mg (Methyl Prednisolone Acetate) 09:56:19 CDT CPT-28324 Spec Collection and Handling Fee 12:10:42 CDT CPT-PV Prev. Care Visit 12:10:42 CDT CPT-04193 Administration single or combination vaccine inc oral 16:45:52 CUSTOMER SERVICE SALES CONSULTANT CPT-32978 Influenza split virus > age 3 16:45:52 CUSTOMER SERVICE SALES CONSULTANT CPT-27618 Spec Collection and Handling Fee 10:35:02 CUSTOMER SERVICE SALES CONSULTANT
--- OUTSIDE RECORDS SUMMARY | 2019-04-22 11:08 | XMS REPORT | Clinical Summary ---
Author Author Admin, [place] Organization [facility] Address Unknown Phone Unavailable Allergies, Adverse Reactions, [...] times a day to affected area HYDROCORTISONE 76241694137 Active Cayetano Skinner MD Active ZITHROMAX Z-MARTI 250 MG TABS 2 today, then 1 daily for 4 days AZITHROMYCIN 79533721100 No Longer Active Jensen Santiago MD Active SUBOXONE 8-2 MG SUBL 2 po qd BUPRENORPHINE HCL-NALOXONE HCL 06919579762 Active Jensen Santiago MD Active CETIRIZINE HCL 10 MG TABS ONE DAILY CETIRIZINE HCL 18974587786 No Longer Active Jensen Santiago MD Active KLONOPIN 1 MG TAB 1/2 tab bid CLONAZEPAM 06425568360 No Longer Active Jensen Santiago MD Active ZOLPIDEM TARTRATE 10 MG TABS 1 q hs as needed for sleep ZOLPIDEM TARTRATE 45423358372 No Longer Active Jensen Santiago MD Active CELEXA 40 MG TABS Take one by mouth daily CITALOPRAM HYDROBROMIDE 14115982120 No Longer Active Jensen Santiago MD Active AMOXICILLIN 875 MG TABS 1 tab by mouth twice daily AMOXICILLIN 47824876247 No Longer Active Cayetano Skinner MD Active FLAGYL 500 MG TAB 1 tablet by mouth two times daily METRONIDAZOLE 48145838676 No Longer Active Cayetano Skinner MD Active FLAGYL 500 MG TAB 1 tablet by mouth two times daily METRONIDAZOLE 84660321381 No Longer Active Cayetano Skinner MD Active BUSPIRONE HCL 15 MG TABS 1/2 PO BID BUSPIRONE HCL 52607445512 No Longer Active Cayetano Skinner MD Active BUSPIRONE HCL 15 MG TABS 1/2 PO BID BUSPIRONE HCL 15 MG TABS 145955 BUSPIRONE HCL Inactive CELEXA 40 MG TABS Take one by mouth daily CELEXA 40 MG TABS 038831 CITALOPRAM HYDROBROMIDE Inactive ZOLPIDEM TARTRATE 10 MG TABS 1 q hs as needed for sleep ZOLPIDEM TARTRATE 10 MG TABS 000327 ZOLPIDEM TARTRATE Inactive KLONOPIN 1 MG TAB 1/2 tab bid KLONOPIN 1 MG TAB 353032 CLONAZEPAM Inactive CETIRIZINE HCL 10 MG TABS ONE DAILY CETIRIZINE HCL 10 MG TABS 6851371 CETIRIZINE HCL Inactive FLAGYL 500 MG TAB 1 tablet by mouth two times daily FLAGYL 500 MG TAB 444098 METRONIDAZOLE Inactive FLAGYL 500 MG TAB 1 tablet by mouth two times daily FLAGYL 500 MG TAB 926259 METRONIDAZOLE Inactive AMOXICILLIN 875 MG TABS 1 tab by mouth twice daily AMOXICILLIN 875 MG TABS 442190 AMOXICILLIN Inactive ZITHROMAX Z-MARTI 250 MG TABS 2 today, then 1 daily for 4 days ZITHROMAX Z-MARTI 250 MG TABS 8490245 AZITHROMYCIN Inactive Immunizations Vaccine Administration Date Value Standard Description Seasonal influenza vaccine, injectable, containing preservative, for > 3 years old (Afluria, FluLaval, Fluzone, Fluvirin, Fluarix, Agriflu(>=18 yo)) Fluzone (>3 yrs.) [[id number]] Influenza, seasonal, injectable Vital Signs Date Name Value Unit Range Description blood pressure, diastolic - 8462-4 77 mm[Hg] BP montejo blood pressure, systolic - 8480-6 114 mm[Hg] BP sys height E&M - 8302-2 65 [in_us] Bdy height pulse rate E&M - 8867-4 69 /min Heart rate temperature E&M 98.2 [degF] Body temperature weight E&M - 3141-9 107.13 [lb_av] Weight Measured Diagnostic Results Date Name Value Unit Range Description Lab Report: CBC, Lipid Panel, Thyroid Stimulating Hormone (L), Comp. Met ... - Chemistry cholesterol, serum 155 mg/dL 169-799 4280/07/25 triglyceride, serum, fasting 46 mg/dL 30-200 HDL cholesterol, serum 61 mg/dL 32-96 LDL cholesterol, serum 85 mg/dL 0-130 TSH 3.11 m[iU]/mL 0.36-3.74 sodium, serum 139 mmol/L 334-037 5031/07/25 potassium, serum 4.1 mmol/L 3.5-5.2 chloride, serum 105 mmol/L 98-107 carbon dioxide, venous blood 28.3 mmol/L 21.0-32.0 blood glucose 92 mg/dL 65-110 urea nitrogen, blood 14 mg/dL 7-18 creatinine, serum 0.70 mg/dL 0.60-1.30 alanine aminotransferase (SGPT), serum 17 U/L 12-78 aspartate aminotransferase (SGOT), serum 15 U/L 15-37 alkaline phosphatase, serum 55 U/L 50-136 calcium, serum 9.1 mg/dL 8.5-10.1 bilirubin, serum, total 0.40 mg/dL 0.00-1.00 Lab Report: CBC, Lipid Panel, Thyroid Stimulating Hormone (L), Comp. Met ... - Hematology leukocyte count, blood 5.0 10^3/MM^3 10*3/mm3 4.6-10.2 erythrocyte (RBC) count 4.55 10^6/MM^3 10*6/mm3 4.04-5.48 hemoglobin, blood 13.9 g/dL 12.0-16.0 hematocrit, blood 41.2 % 36.0-46.0 mean corpuscular volume, RBC 91 fL 80-97 mean corpuscular hemoglobin, RBC 30.5 pg 27.0-31.2 mean corpuscular hemoglobin concentration, RBC 33.7 G/DL % 31.8-35.4 red blood cell distribution width 13.9 % 11.6-14.8 platelet count 229 10^3/MM^3 10*3/mm3 142-424 Lab Report: Chlamydia/GC APTIMA/18646 - Lab chlamydia DNA probe NOT DETECTED NOT DETECTED Lab Report: Chlamydia/GC APTIMA/20176 - Microbiology Neisseria gonorrhoeae DNA probe NOT DETECTED NOT DETECTED Encounters Code Encounter Date Provider Facility CPT-48598 Level 3 Est. Patient 12:31:18 ASSISTED SALES REPRESENTATIVE Jensen Santiago MD [facility] CPT-90968 Level 3 Est. Patient 10:35:02 ASSISTED SALES REPRESENTATIVE Cayetano Skinner MD [facility] CPT-65560 Level 3 Est. Patient 12:50:08 ASSISTED SALES REPRESENTATIVE Cayetano Skinner MD [facility] Procedures Code Procedure Name Date Entry Date Standard Description CPT-55988 Spec Collection and Handling Fee 12:10:42 CDT CPT-PV Prev. Care Visit 12:10:42 CDT CPT-50407 Administration single or combination vaccine inc oral 16:45:52 ASSISTED SALES REPRESENTATIVE CPT-93806 Influenza split virus > age 3 16:45:52 ASSISTED SALES REPRESENTATIVE CPT-81479 Spec Collection and Handling Fee 10:35:02 ASSISTED SALES REPRESENTATIVE
--- OUTSIDE RECORDS SUMMARY | 2019-04-22 11:08 | XMS REPORT | Clinical Summary ---
Author Author Admin, [place] Organization [facility] Address Unknown Phone Unavailable Allergies, Adverse Reactions, [...] times a day to affected area HYDROCORTISONE 45139360906 Active Cayetano Skinner MD Active ZITHROMAX Z-MARTI 250 MG TABS 2 today, then 1 daily for 4 days AZITHROMYCIN 44590758229 No Longer Active Jensen Santiago MD Active SUBOXONE 8-2 MG SUBL 2 po qd BUPRENORPHINE HCL-NALOXONE HCL 42857201064 Active Jensen Santiago MD Active CETIRIZINE HCL 10 MG TABS ONE DAILY CETIRIZINE HCL 81466437159 No Longer Active Jensen Santiago MD Active KLONOPIN 1 MG TAB 1/2 tab bid CLONAZEPAM 95557794385 No Longer Active Jensen Santiago MD Active ZOLPIDEM TARTRATE 10 MG TABS 1 q hs as needed for sleep ZOLPIDEM TARTRATE 64161633199 No Longer Active Jensen Santiago MD Active CELEXA 40 MG TABS Take one by mouth daily CITALOPRAM HYDROBROMIDE 67661299964 No Longer Active Jensen Santiago MD Active AMOXICILLIN 875 MG TABS 1 tab by mouth twice daily AMOXICILLIN 08929457219 No Longer Active Cayetano Skinner MD Active FLAGYL 500 MG TAB 1 tablet by mouth two times daily METRONIDAZOLE 68775679028 No Longer Active Cayetano Skinner MD Active FLAGYL 500 MG TAB 1 tablet by mouth two times daily METRONIDAZOLE 29057423721 No Longer Active Cayetano Skinner MD Active BUSPIRONE HCL 15 MG TABS 1/2 PO BID BUSPIRONE HCL 86918716743 No Longer Active Cayetano Skinner MD Active BUSPIRONE HCL 15 MG TABS 1/2 PO BID BUSPIRONE HCL 15 MG TABS 634687 BUSPIRONE HCL Inactive CELEXA 40 MG TABS Take one by mouth daily CELEXA 40 MG TABS 854962 CITALOPRAM HYDROBROMIDE Inactive ZOLPIDEM TARTRATE 10 MG TABS 1 q hs as needed for sleep ZOLPIDEM TARTRATE 10 MG TABS 206772 ZOLPIDEM TARTRATE Inactive KLONOPIN 1 MG TAB 1/2 tab bid KLONOPIN 1 MG TAB 654614 CLONAZEPAM Inactive CETIRIZINE HCL 10 MG TABS ONE DAILY CETIRIZINE HCL 10 MG TABS 1860177 CETIRIZINE HCL Inactive FLAGYL 500 MG TAB 1 tablet by mouth two times daily FLAGYL 500 MG TAB 522309 METRONIDAZOLE Inactive FLAGYL 500 MG TAB 1 tablet by mouth two times daily FLAGYL 500 MG TAB 511482 METRONIDAZOLE Inactive AMOXICILLIN 875 MG TABS 1 tab by mouth twice daily AMOXICILLIN 875 MG TABS 900217 AMOXICILLIN Inactive ZITHROMAX Z-MARTI 250 MG TABS 2 today, then 1 daily for 4 days ZITHROMAX Z-MARTI 250 MG TABS 6709429 AZITHROMYCIN Inactive Immunizations Vaccine Administration Date Value Standard Description Seasonal influenza vaccine, injectable, containing preservative, for > 3 years old (Afluria, FluLaval, Fluzone, Fluvirin, Fluarix, Agriflu(>=18 yo)) Fluzone (>3 yrs.) [[id number]] Influenza, seasonal, injectable Vital Signs Date Name [...] ... - Chemistry cholesterol, serum 155 mg/dL 567-557 3918/07/25 triglyceride, serum, fasting 46 mg/dL 30-200 HDL cholesterol, serum 61 mg/dL 32-96 LDL cholesterol, serum 85 mg/dL 0-130 TSH 3.11 m[iU]/mL 0.36-3.74 sodium, serum 139 mmol/L 313-063 4904/07/25 potassium, serum 4.1 mmol/L 3.5-5.2 chloride, serum [...] 229 10^3/MM^3 10*3/mm3 142-424 Lab Report: Chlamydia/GC APTIMA/[id number] - Lab chlamydia DNA probe NOT DETECTED NOT DETECTED Lab Report: Chlamydia/GC APTIMA/76853 - Microbiology Neisseria gonorrhoeae DNA probe NOT DETECTED NOT DETECTED Encounters Code Encounter Date Provider Facility CPT-68485 Level 3 Est. Patient 12:31:18 TACTICAL DEBRIEFER Jensen Santiago MD [facility] CPT-28441 Level 3 Est. Patient 10:35:02 TACTICAL DEBRIEFER Cayetano Skinner MD [facility] CPT-66972 Level 3 Est. Patient 12:50:08 TACTICAL DEBRIEFER Cayetano Skinner MD [facility] Procedures Code Procedure Name Date Entry Date Standard Description CPT-84061 Spec Collection and Handling Fee 12:10:42 CDT CPT-PV Prev. Care Visit 12:10:42 CDT CPT-37937 Administration single or combination vaccine inc oral 16:45:52 TACTICAL DEBRIEFER CPT-08195 Influenza split virus > age 3 16:45:52 TACTICAL DEBRIEFER CPT-97742 Spec Collection and Handling Fee 10:35:02 TACTICAL DEBRIEFER
--- OUTSIDE RECORDS SUMMARY | 2019-04-22 11:08 | XMS REPORT | Clinical Summary ---
Author Author Admin, [place] Organization [facility] Address Unknown Phone Unavailable Allergies, Adverse [...] times a day to affected area HYDROCORTISONE 94597914157 Active Cayetano Skinner MD Active ZITHROMAX Z-MARTI 250 MG TABS 2 today, then 1 daily for 4 days AZITHROMYCIN 21121077938 No Longer Active Jensen Santiago MD Active SUBOXONE 8-2 MG SUBL 2 po qd BUPRENORPHINE HCL-NALOXONE HCL 96149412983 Active Jensen Santiago MD Active CETIRIZINE HCL 10 MG TABS ONE DAILY CETIRIZINE HCL 02855224856 No Longer Active Jensen Santiago MD Active KLONOPIN 1 MG TAB 1/2 tab bid CLONAZEPAM 03180716436 No Longer Active Jensen Santiago MD Active ZOLPIDEM TARTRATE 10 MG TABS 1 q hs as needed for sleep ZOLPIDEM TARTRATE 32633961019 No Longer Active Jensen Santiago MD Active CELEXA 40 MG TABS Take one by mouth daily CITALOPRAM HYDROBROMIDE 31641002603 No Longer Active Jensen Santiago MD Active AMOXICILLIN 875 MG TABS 1 tab by mouth twice daily AMOXICILLIN 23790961883 No Longer Active Cayetano Skinner MD Active FLAGYL 500 MG TAB 1 tablet by mouth two times daily METRONIDAZOLE 87579590378 No Longer Active Cayetano Skinner MD Active FLAGYL 500 MG TAB 1 tablet by mouth two times daily METRONIDAZOLE 65747675419 No Longer Active Cayetano Skinner MD Active BUSPIRONE HCL 15 MG TABS 1/2 PO BID BUSPIRONE HCL 95268371040 No Longer Active Cayetano Skinner MD Active BUSPIRONE HCL 15 MG TABS 1/2 PO BID BUSPIRONE HCL 15 MG TABS 378103 BUSPIRONE HCL Inactive CELEXA 40 MG TABS Take one by mouth daily CELEXA 40 MG TABS 484465 CITALOPRAM HYDROBROMIDE Inactive ZOLPIDEM TARTRATE 10 MG TABS 1 q hs as needed for sleep ZOLPIDEM TARTRATE 10 MG TABS 829573 ZOLPIDEM TARTRATE Inactive KLONOPIN 1 MG TAB 1/2 tab bid KLONOPIN 1 MG TAB 419215 CLONAZEPAM Inactive CETIRIZINE HCL 10 MG TABS ONE DAILY CETIRIZINE HCL 10 MG TABS 4955678 CETIRIZINE HCL Inactive FLAGYL 500 MG TAB 1 tablet by mouth two times daily FLAGYL 500 MG TAB 938867 METRONIDAZOLE Inactive FLAGYL 500 MG TAB 1 tablet by mouth two times daily FLAGYL 500 MG TAB 020382 METRONIDAZOLE Inactive AMOXICILLIN 875 MG TABS 1 tab by mouth twice daily AMOXICILLIN 875 MG TABS 356132 AMOXICILLIN Inactive ZITHROMAX Z-MARTI 250 MG TABS 2 today, then 1 daily for 4 days ZITHROMAX Z-MARTI 250 MG TABS 6258100 AZITHROMYCIN Inactive Immunizations Vaccine Administration Date Value Standard Description Seasonal influenza vaccine, injectable, containing preservative, for > 3 years old (Afluria, FluLaval, Fluzone, Fluvirin, Fluarix, Agriflu(>=18 yo)) Fluzone (>3 yrs.) [[id number]] Influenza, seasonal, injectable Vital Signs Date Name [...] ... - Chemistry cholesterol, serum 155 mg/dL 883-750 0847/07/25 triglyceride, serum, fasting 46 mg/dL 30-200 HDL cholesterol, serum 61 mg/dL 32-96 LDL cholesterol, serum 85 mg/dL 0-130 TSH 3.11 m[iU]/mL 0.36-3.74 sodium, serum 139 mmol/L 219-437 6921/07/25 potassium, serum 4.1 mmol/L 3.5-5.2 chloride, serum [...] 229 10^3/MM^3 10*3/mm3 142-424 Lab Report: Chlamydia/GC APTIMA/[id number] - Lab chlamydia DNA probe NOT DETECTED NOT DETECTED Lab Report: Chlamydia/GC APTIMA/19855 - Microbiology Neisseria gonorrhoeae DNA probe NOT DETECTED NOT DETECTED Encounters Code Encounter Date Provider Facility CPT-28379 Level 3 Est. Patient 12:31:18 RN CARDIOVASCULAR ICU Jensen Santiago MD [facility] CPT-23616 Level 3 Est. Patient 10:35:02 RN CARDIOVASCULAR ICU Cayetano Skinner MD [facility] CPT-61131 Level 3 Est. Patient 12:50:08 RN CARDIOVASCULAR ICU Cayetano Skinner MD [facility] Procedures Code Procedure Name Date Entry Date Standard Description CPT-19536 Spec Collection and Handling Fee 12:10:42 CDT CPT-PV Prev. Care Visit 12:10:42 CDT CPT-38430 Administration single or combination vaccine inc oral 16:45:52 RN CARDIOVASCULAR ICU CPT-38151 Influenza split virus > age 3 16:45:52 RN CARDIOVASCULAR ICU CPT-19256 Spec Collection and Handling Fee 10:35:02 RN CARDIOVASCULAR ICU
--- OUTSIDE RECORDS SUMMARY | 2019-04-22 11:09 | XMS REPORT | Clinical Summary ---
Author Author Admin, [place] Organization [facility] Address Unknown Phone Unavailable Allergies, [...] times a day to affected area HYDROCORTISONE 39420357069 Active Cayetano Skinner MD Active ZITHROMAX Z-MARTI 250 MG TABS 2 today, then 1 daily for 4 days AZITHROMYCIN 57013569157 No Longer Active Jensen Santiago MD Active SUBOXONE 8-2 MG SUBL 2 po qd BUPRENORPHINE HCL-NALOXONE HCL 79090610818 Active Jensen Santiago MD Active CETIRIZINE HCL 10 MG TABS ONE DAILY CETIRIZINE HCL 30216636983 No Longer Active Jensen Santiago MD Active KLONOPIN 1 MG TAB 1/2 tab bid CLONAZEPAM 22178322530 No Longer Active Jensen Santiago MD Active ZOLPIDEM TARTRATE 10 MG TABS 1 q hs as needed for sleep ZOLPIDEM TARTRATE 31929036042 No Longer Active Jensne Santiago MD Active CELEXA 40 MG TABS Take one by mouth daily CITALOPRAM HYDROBROMIDE 10135135154 No Longer Active Jensen Santiago MD Active AMOXICILLIN 875 MG TABS 1 tab by mouth twice daily AMOXICILLIN 18125107143 No Longer Active Cayetano Skinner MD Active FLAGYL 500 MG TAB 1 tablet by mouth two times daily METRONIDAZOLE 27236545925 No Longer Active Cayetano Skinner MD Active FLAGYL 500 MG TAB 1 tablet by mouth two times daily METRONIDAZOLE 04393333536 No Longer Active Cayetano Skinner MD Active BUSPIRONE HCL 15 MG TABS 1/2 PO BID BUSPIRONE HCL 25484746759 No Longer Active Cayetano Skinner MD Active BUSPIRONE HCL 15 MG TABS 1/2 PO BID BUSPIRONE HCL 15 MG TABS 617498 BUSPIRONE HCL Inactive CELEXA 40 MG TABS Take one by mouth daily CELEXA 40 MG TABS 283165 CITALOPRAM HYDROBROMIDE Inactive ZOLPIDEM TARTRATE 10 MG TABS 1 q hs as needed for sleep ZOLPIDEM TARTRATE 10 MG TABS 674064 ZOLPIDEM TARTRATE Inactive KLONOPIN 1 MG TAB 1/2 tab bid KLONOPIN 1 MG TAB 466189 CLONAZEPAM Inactive CETIRIZINE HCL 10 MG TABS ONE DAILY CETIRIZINE HCL 10 MG TABS 8427083 CETIRIZINE HCL Inactive FLAGYL 500 MG TAB 1 tablet by mouth two times daily FLAGYL 500 MG TAB 836491 METRONIDAZOLE Inactive FLAGYL 500 MG TAB 1 tablet by mouth two times daily FLAGYL 500 MG TAB 491673 METRONIDAZOLE Inactive AMOXICILLIN 875 MG TABS 1 tab by mouth twice daily AMOXICILLIN 875 MG TABS 816195 AMOXICILLIN Inactive ZITHROMAX Z-MARTI 250 MG TABS 2 today, then 1 daily for 4 days ZITHROMAX Z-MARTI 250 MG TABS 8796705 AZITHROMYCIN Inactive Immunizations Vaccine Administration Date Value Standard Description Seasonal influenza vaccine, injectable, containing preservative, for > 3 years old (Afluria, FluLaval, Fluzone, Fluvirin, Fluarix, Agriflu(>=18 yo)) Fluzone (>3 yrs.) [[id number]] Influenza, seasonal, injectable Vital Signs Date Name [...] ... - Chemistry cholesterol, serum 155 mg/dL 251-696 7596/07/25 triglyceride, serum, fasting 46 mg/dL 30-200 HDL cholesterol, serum 61 mg/dL 32-96 LDL cholesterol, serum 85 mg/dL 0-130 TSH 3.11 m[iU]/mL 0.36-3.74 sodium, serum 139 mmol/L 073-508 9728/07/25 potassium, serum 4.1 mmol/L 3.5-5.2 chloride, serum [...] 229 10^3/MM^3 10*3/mm3 142-424 Lab Report: Chlamydia/GC APTIMA/[id number] - Lab chlamydia DNA probe NOT DETECTED NOT DETECTED Lab Report: Chlamydia/GC APTIMA/[id number] - Microbiology Neisseria gonorrhoeae DNA probe NOT DETECTED NOT DETECTED Encounters Code Encounter Date Provider Facility CPT-81615 Level 3 Est. Patient 12:31:18 HAT MENDER Jensen Santiago MD [facility] CPT-34260 Level 3 Est. Patient 10:35:02 HAT MENDER Cayetaon Skinner MD [facility] CPT-07952 Level 3 Est. Patient 12:50:08 HAT MENDER Cayetano Skinner MD [facility] Procedures Code Procedure Name Date Entry Date Standard Description CPT-41087 Spec Collection and Handling Fee 12:10:42 CDT CPT-PV Prev. Care Visit 12:10:42 CDT CPT-09783 Administration single or combination vaccine inc oral 16:45:52 HAT MENDER CPT-11907 Influenza split virus > age 3 16:45:52 HAT MENDER CPT-68619 Spec Collection and Handling Fee 10:35:02 HAT MENDER
--- OUTSIDE RECORDS SUMMARY | 2019-04-22 11:09 | XMS REPORT | Clinical Summary ---
Author Author Admin, [place] Organization [facility] Address Unknown Phone Unavailable Allergies, Adverse Reactions, [...] times a day to affected area HYDROCORTISONE 61934752769 Active Cayetano Skinner MD Active ZITHROMAX Z-MARTI 250 MG TABS 2 today, then 1 daily for 4 days AZITHROMYCIN 18490676751 No Longer Active Jensen Santiago MD Active SUBOXONE 8-2 MG SUBL 2 po qd BUPRENORPHINE HCL-NALOXONE HCL 64843398942 Active Jensen Santiago MD Active CETIRIZINE HCL 10 MG TABS ONE DAILY CETIRIZINE HCL 29451821715 No Longer Active Jensen Santiago MD Active KLONOPIN 1 MG TAB 1/2 tab bid CLONAZEPAM 19529292461 No Longer Active Jensen Santiago MD Active ZOLPIDEM TARTRATE 10 MG TABS 1 q hs as needed for sleep ZOLPIDEM TARTRATE 85465992917 No Longer Active Jensen Santiago MD Active CELEXA 40 MG TABS Take one by mouth daily CITALOPRAM HYDROBROMIDE 56642694327 No Longer Active Jensen Santiago MD Active AMOXICILLIN 875 MG TABS 1 tab by mouth twice daily AMOXICILLIN 17792109439 No Longer Active Cayetano Skinner MD Active FLAGYL 500 MG TAB 1 tablet by mouth two times daily METRONIDAZOLE 21555751680 No Longer Active Cayetano Skinner MD Active FLAGYL 500 MG TAB 1 tablet by mouth two times daily METRONIDAZOLE 32548251222 No Longer Active Cayetano Skinner MD Active BUSPIRONE HCL 15 MG TABS 1/2 PO BID BUSPIRONE HCL 01392856287 No Longer Active Cayetano Skinner MD Active BUSPIRONE HCL 15 MG TABS 1/2 PO BID BUSPIRONE HCL 15 MG TABS 866258 BUSPIRONE HCL Inactive CELEXA 40 MG TABS Take one by mouth daily CELEXA 40 MG TABS 959455 CITALOPRAM HYDROBROMIDE Inactive ZOLPIDEM TARTRATE 10 MG TABS 1 q hs as needed for sleep ZOLPIDEM TARTRATE 10 MG TABS 028282 ZOLPIDEM TARTRATE Inactive KLONOPIN 1 MG TAB 1/2 tab bid KLONOPIN 1 MG TAB 123804 CLONAZEPAM Inactive CETIRIZINE HCL 10 MG TABS ONE DAILY CETIRIZINE HCL 10 MG TABS 6155307 CETIRIZINE HCL Inactive FLAGYL 500 MG TAB 1 tablet by mouth two times daily FLAGYL 500 MG TAB 662471 METRONIDAZOLE Inactive FLAGYL 500 MG TAB 1 tablet by mouth two times daily FLAGYL 500 MG TAB 919056 METRONIDAZOLE Inactive AMOXICILLIN 875 MG TABS 1 tab by mouth twice daily AMOXICILLIN 875 MG TABS 401879 AMOXICILLIN Inactive ZITHROMAX Z-MARTI 250 MG TABS 2 today, then 1 daily for 4 days ZITHROMAX Z-MARTI 250 MG TABS 4329047 AZITHROMYCIN Inactive Immunizations Vaccine Administration Date Value Standard Description Seasonal influenza vaccine, injectable, containing preservative, for > 3 years old (Afluria, FluLaval, Fluzone, Fluvirin, Fluarix, Agriflu(>=18 yo)) Fluzone (>3 yrs.) [[id number]] Influenza, seasonal, injectable Vital Signs Date Name [...] ... - Chemistry cholesterol, serum 155 mg/dL 321-258 8868/07/25 triglyceride, serum, fasting 46 mg/dL 30-200 HDL cholesterol, serum 61 mg/dL 32-96 LDL cholesterol, serum 85 mg/dL 0-130 TSH 3.11 m[iU]/mL 0.36-3.74 sodium, serum 139 mmol/L 399-206 1238/07/25 potassium, serum 4.1 mmol/L 3.5-5.2 chloride, serum [...] 229 10^3/MM^3 10*3/mm3 142-424 Lab Report: Chlamydia/GC APTIMA/72878 - Lab chlamydia DNA probe NOT DETECTED NOT DETECTED Lab Report: Chlamydia/GC APTIMA/41437 - Microbiology Neisseria gonorrhoeae DNA probe NOT DETECTED NOT DETECTED Encounters Code Encounter Date Provider Facility CPT-71827 Level 3 Est. Patient 12:31:18 COOK CHILI Jensen Santiago MD [facility] CPT-86792 Level 3 Est. Patient 10:35:02 COOK CHILI Cayetano Skinner MD [facility] CPT-10998 Level 3 Est. Patient 12:50:08 COOK CHILI Cayetano Skinner MD [facility] Procedures Code Procedure Name Date Entry Date Standard Description CPT-49737 Spec Collection and Handling Fee 12:10:42 CDT CPT-PV Prev. Care Visit 12:10:42 CDT CPT-67406 Administration single or combination vaccine inc oral 16:45:52 COOK CHILI CPT-73574 Influenza split virus > age 3 16:45:52 COOK CHILI CPT-80701 Spec Collection and Handling Fee 10:35:02 COOK CHILI
--- OUTSIDE RECORDS SUMMARY | 2019-04-22 11:09 | XMS REPORT | Clinical Summary ---
Author Author Admin, [place] Organization [facility] Address Unknown Phone Unavailable Allergies, Adverse [...] times a day to affected area HYDROCORTISONE 58926960114 Active Cayetano Skinner MD Active ZITHROMAX Z-MARTI 250 MG TABS 2 today, then 1 daily for 4 days AZITHROMYCIN 96302563586 No Longer Active Jensen Santiago MD Active SUBOXONE 8-2 MG SUBL 2 po qd BUPRENORPHINE HCL-NALOXONE HCL 00387790525 Active Jensen Santiago MD Active CETIRIZINE HCL 10 MG TABS ONE DAILY CETIRIZINE HCL 82395108934 No Longer Active Jensen Santiago MD Active KLONOPIN 1 MG TAB 1/2 tab bid CLONAZEPAM 28829570083 No Longer Active Jensen Santiago MD Active ZOLPIDEM TARTRATE 10 MG TABS 1 q hs as needed for sleep ZOLPIDEM TARTRATE 48765443665 No Longer Active Jensen Santiago MD Active CELEXA 40 MG TABS Take one by mouth daily CITALOPRAM HYDROBROMIDE 08014472086 No Longer Active Jensen Santiago MD Active AMOXICILLIN 875 MG TABS 1 tab by mouth twice daily AMOXICILLIN 99716697845 No Longer Active Cayetano Skinner MD Active FLAGYL 500 MG TAB 1 tablet by mouth two times daily METRONIDAZOLE 33951294816 No Longer Active Cayetano Skinner MD Active FLAGYL 500 MG TAB 1 tablet by mouth two times daily METRONIDAZOLE 30652486928 No Longer Active Cayetano Skinner MD Active BUSPIRONE HCL 15 MG TABS 1/2 PO BID BUSPIRONE HCL 05559976594 No Longer Active Cayetano Skinner MD Active BUSPIRONE HCL 15 MG TABS 1/2 PO BID BUSPIRONE HCL 15 MG TABS 114768 BUSPIRONE HCL Inactive CELEXA 40 MG TABS Take one by mouth daily CELEXA 40 MG TABS 651111 CITALOPRAM HYDROBROMIDE Inactive ZOLPIDEM TARTRATE 10 MG TABS 1 q hs as needed for sleep ZOLPIDEM TARTRATE 10 MG TABS 025480 ZOLPIDEM TARTRATE Inactive KLONOPIN 1 MG TAB 1/2 tab bid KLONOPIN 1 MG TAB 411264 CLONAZEPAM Inactive CETIRIZINE HCL 10 MG TABS ONE DAILY CETIRIZINE HCL 10 MG TABS 1629532 CETIRIZINE HCL Inactive FLAGYL 500 MG TAB 1 tablet by mouth two times daily FLAGYL 500 MG TAB 737873 METRONIDAZOLE Inactive FLAGYL 500 MG TAB 1 tablet by mouth two times daily FLAGYL 500 MG TAB 761180 METRONIDAZOLE Inactive AMOXICILLIN 875 MG TABS 1 tab by mouth twice daily AMOXICILLIN 875 MG TABS 672908 AMOXICILLIN Inactive ZITHROMAX Z-MARTI 250 MG TABS 2 today, then 1 daily for 4 days ZITHROMAX Z-MARTI 250 MG TABS 8331476 AZITHROMYCIN Inactive Immunizations Vaccine Administration Date Value Standard Description Seasonal influenza vaccine, injectable, containing preservative, for > 3 years old (Afluria, FluLaval, Fluzone, Fluvirin, Fluarix, Agriflu(>=18 yo)) Fluzone (>3 yrs.) [[id number]] Influenza, seasonal, injectable Vital Signs Date Name [...] ... - Chemistry cholesterol, serum 155 mg/dL 095-195 0988/07/25 triglyceride, serum, fasting 46 mg/dL 30-200 HDL cholesterol, serum 61 mg/dL 32-96 LDL cholesterol, serum 85 mg/dL 0-130 TSH 3.11 m[iU]/mL 0.36-3.74 sodium, serum 139 mmol/L 948-581 1270/07/25 potassium, serum 4.1 mmol/L 3.5-5.2 chloride, serum [...] 229 10^3/MM^3 10*3/mm3 142-424 Lab Report: Chlamydia/GC APTIMA/[id number] - Lab chlamydia DNA probe NOT DETECTED NOT DETECTED Lab Report: Chlamydia/GC APTIMA/62814 - Microbiology Neisseria gonorrhoeae DNA probe NOT DETECTED NOT DETECTED Encounters Code Encounter Date Provider Facility CPT-93444 Level 3 Est. Patient 12:31:18 RECREATIONAL THERAPIST Jensen Santiago MD [facility] CPT-92787 Level 3 Est. Patient 10:35:02 RECREATIONAL THERAPIST Cayetano Skinner MD [facility] CPT-16926 Level 3 Est. Patient 12:50:08 RECREATIONAL THERAPIST Cayetano Skinner MD [facility] Procedures Code Procedure Name Date Entry Date Standard Description CPT-71040 Spec Collection and Handling Fee 12:10:42 CDT CPT-PV Prev. Care Visit 12:10:42 CDT CPT-00360 Administration single or combination vaccine inc oral 16:45:52 RECREATIONAL THERAPIST CPT-46762 Influenza split virus > age 3 16:45:52 RECREATIONAL THERAPIST CPT-04374 Spec Collection and Handling Fee 10:35:02 RECREATIONAL THERAPIST
--- OUTSIDE RECORDS SUMMARY | 2019-04-22 11:10 | XMS REPORT | Clinical Summary ---
Author Author Admin, [place] Organization [facility] Address Unknown Phone Unavailable Allergies, Adverse [...] times a day to affected area HYDROCORTISONE 33676352423 Active Cayetano Skinner MD Active ZITHROMAX Z-MARTI 250 MG TABS 2 today, then 1 daily for 4 days AZITHROMYCIN 38129500971 No Longer Active Jensen Santiago MD Active SUBOXONE 8-2 MG SUBL 2 po qd BUPRENORPHINE HCL-NALOXONE HCL 77686439800 Active Jensen Santiago MD Active CETIRIZINE HCL 10 MG TABS ONE DAILY CETIRIZINE HCL 41396677559 No Longer Active Jensen Santiago MD Active KLONOPIN 1 MG TAB 1/2 tab bid CLONAZEPAM 13043934759 No Longer Active Jensen Santiago MD Active ZOLPIDEM TARTRATE 10 MG TABS 1 q hs as needed for sleep ZOLPIDEM TARTRATE 70736638194 No Longer Active Jensen Santiago MD Active CELEXA 40 MG TABS Take one by mouth daily CITALOPRAM HYDROBROMIDE 03658058215 No Longer Active Jensen Santiago MD Active AMOXICILLIN 875 MG TABS 1 tab by mouth twice daily AMOXICILLIN 24063724293 No Longer Active Cayetano Skinner MD Active FLAGYL 500 MG TAB 1 tablet by mouth two times daily METRONIDAZOLE 36057611014 No Longer Active Cayetano Skinner MD Active FLAGYL 500 MG TAB 1 tablet by mouth two times daily METRONIDAZOLE 49811198290 No Longer Active Cayetano Skinner MD Active BUSPIRONE HCL 15 MG TABS 1/2 PO BID BUSPIRONE HCL 30792535841 No Longer Active Cayetano Skinner MD Active BUSPIRONE HCL 15 MG TABS 1/2 PO BID BUSPIRONE HCL 15 MG TABS 182475 BUSPIRONE HCL Inactive CELEXA 40 MG TABS Take one by mouth daily CELEXA 40 MG TABS 994238 CITALOPRAM HYDROBROMIDE Inactive ZOLPIDEM TARTRATE 10 MG TABS 1 q hs as needed for sleep ZOLPIDEM TARTRATE 10 MG TABS 755361 ZOLPIDEM TARTRATE Inactive KLONOPIN 1 MG TAB 1/2 tab bid KLONOPIN 1 MG TAB 938609 CLONAZEPAM Inactive CETIRIZINE HCL 10 MG TABS ONE DAILY CETIRIZINE HCL 10 MG TABS 7789525 CETIRIZINE HCL Inactive FLAGYL 500 MG TAB 1 tablet by mouth two times daily FLAGYL 500 MG TAB 908237 METRONIDAZOLE Inactive FLAGYL 500 MG TAB 1 tablet by mouth two times daily FLAGYL 500 MG TAB 365409 METRONIDAZOLE Inactive AMOXICILLIN 875 MG TABS 1 tab by mouth twice daily AMOXICILLIN 875 MG TABS 752980 AMOXICILLIN Inactive ZITHROMAX Z-MARTI 250 MG TABS 2 today, then 1 daily for 4 days ZITHROMAX Z-MARTI 250 MG TABS 3930662 AZITHROMYCIN Inactive Immunizations Vaccine Administration Date Value Standard Description Seasonal influenza vaccine, injectable, containing preservative, for > 3 years old (Afluria, FluLaval, Fluzone, Fluvirin, Fluarix, Agriflu(>=18 yo)) Fluzone (>3 yrs.) [[id number]] Influenza, seasonal, injectable Vital Signs Date Name [...] ... - Chemistry cholesterol, serum 155 mg/dL 091-920 4594/07/25 triglyceride, serum, fasting 46 mg/dL 30-200 HDL cholesterol, serum 61 mg/dL 32-96 LDL cholesterol, serum 85 mg/dL 0-130 TSH 3.11 m[iU]/mL 0.36-3.74 sodium, serum 139 mmol/L 587-557 8381/07/25 potassium, serum 4.1 mmol/L 3.5-5.2 chloride, serum [...] 229 10^3/MM^3 10*3/mm3 142-424 Lab Report: Chlamydia/GC APTIMA/[id number] - Lab chlamydia DNA probe NOT DETECTED NOT DETECTED Lab Report: Chlamydia/GC APTIMA/[id number] - Microbiology Neisseria gonorrhoeae DNA probe NOT DETECTED NOT DETECTED Encounters Code Encounter Date Provider Facility CPT-58116 Level 3 Est. Patient 12:31:18 DE ALCOHOLIZER Jensen Santiago MD [facility] CPT-70019 Level 3 Est. Patient 10:35:02 DE ALCOHOLIZER Cayetano Skinner MD [facility] CPT-35708 Level 3 Est. Patient 12:50:08 DE ALCOHOLIZER Cayetano Skinner MD [facility] Procedures Code Procedure Name Date Entry Date Standard Description CPT-76442 Spec Collection and Handling Fee 12:10:42 CDT CPT-PV Prev. Care Visit 12:10:42 CDT CPT-21560 Administration single or combination vaccine inc oral 16:45:52 DE ALCOHOLIZER CPT-65145 Influenza split virus > age 3 16:45:52 DE ALCOHOLIZER CPT-66834 Spec Collection and Handling Fee 10:35:02 DE ALCOHOLIZER
--- OUTSIDE RECORDS SUMMARY | 2019-04-22 11:10 | XMS REPORT | Clinical Summary ---
Author Author Admin, WEST[place] Organization [facility] Address Unknown Phone Unavailable Allergies, Adverse [...] times a day to affected area HYDROCORTISONE 47957968734 Active Cayetano Skinner MD Active ZITHROMAX Z-MARTI 250 MG TABS 2 today, then 1 daily for 4 days AZITHROMYCIN 54188477520 No Longer Active Jensen Santiago MD Active SUBOXONE 8-2 MG SUBL 2 po qd BUPRENORPHINE HCL-NALOXONE HCL 98124672749 Active Jensen Santiago MD Active CETIRIZINE HCL 10 MG TABS ONE DAILY CETIRIZINE HCL 81569512410 No Longer Active Jensen Santiago MD Active KLONOPIN 1 MG TAB 1/2 tab bid CLONAZEPAM 28007938454 No Longer Active Jensen Santiago MD Active ZOLPIDEM TARTRATE 10 MG TABS 1 q hs as needed for sleep ZOLPIDEM TARTRATE 36469498145 No Longer Active Jensen Santiago MD Active CELEXA 40 MG TABS Take one by mouth daily CITALOPRAM HYDROBROMIDE 92438448539 No Longer Active Jensen Santiago MD Active AMOXICILLIN 875 MG TABS 1 tab by mouth twice daily AMOXICILLIN 73759822738 No Longer Active Cayetano Skinner MD Active FLAGYL 500 MG TAB 1 tablet by mouth two times daily METRONIDAZOLE 03578420738 No Longer Active Cayetano Skinner MD Active FLAGYL 500 MG TAB 1 tablet by mouth two times daily METRONIDAZOLE 99026470194 No Longer Active Cayetano Skinner MD Active BUSPIRONE HCL 15 MG TABS 1/2 PO BID BUSPIRONE HCL 70616145878 No Longer Active Cayetano Skinner MD Active BUSPIRONE HCL 15 MG TABS 1/2 PO BID BUSPIRONE HCL 15 MG TABS 687351 BUSPIRONE HCL Inactive CELEXA 40 MG TABS Take one by mouth daily CELEXA 40 MG TABS 761859 CITALOPRAM HYDROBROMIDE Inactive ZOLPIDEM TARTRATE 10 MG TABS 1 q hs as needed for sleep ZOLPIDEM TARTRATE 10 MG TABS 139337 ZOLPIDEM TARTRATE Inactive KLONOPIN 1 MG TAB 1/2 tab bid KLONOPIN 1 MG TAB 715026 CLONAZEPAM Inactive CETIRIZINE HCL 10 MG TABS ONE DAILY CETIRIZINE HCL 10 MG TABS 5755175 CETIRIZINE HCL Inactive FLAGYL 500 MG TAB 1 tablet by mouth two times daily FLAGYL 500 MG TAB 452141 METRONIDAZOLE Inactive FLAGYL 500 MG TAB 1 tablet by mouth two times daily FLAGYL 500 MG TAB 826279 METRONIDAZOLE Inactive AMOXICILLIN 875 MG TABS 1 tab by mouth twice daily AMOXICILLIN 875 MG TABS 789172 AMOXICILLIN Inactive ZITHROMAX Z-MARTI 250 MG TABS 2 today, then 1 daily for 4 days ZITHROMAX Z-MARTI 250 MG TABS 2791387 AZITHROMYCIN Inactive Immunizations Vaccine Administration Date Value Standard Description Seasonal influenza vaccine, injectable, containing preservative, for > 3 years old (Afluria, FluLaval, Fluzone, Fluvirin, Fluarix, Agriflu(>=18 yo)) Fluzone (>3 yrs.) [[id number]] Influenza, seasonal, injectable Vital Signs Date Name [...] ... - Chemistry cholesterol, serum 155 mg/dL 079-972 3075/07/25 triglyceride, serum, fasting 46 mg/dL 30-200 HDL cholesterol, serum 61 mg/dL 32-96 LDL cholesterol, serum 85 mg/dL 0-130 TSH 3.11 m[iU]/mL 0.36-3.74 sodium, serum 139 mmol/L 426-850 6047/07/25 potassium, serum 4.1 mmol/L 3.5-5.2 chloride, serum [...] 229 10^3/MM^3 10*3/mm3 142-424 Lab Report: Chlamydia/GC APTIMA/[id number] - Lab chlamydia DNA probe NOT DETECTED NOT DETECTED Lab Report: Chlamydia/GC APTIMA/[id number] - Microbiology Neisseria gonorrhoeae DNA probe NOT DETECTED NOT DETECTED Encounters Code Encounter Date Provider Facility CPT-57499 Level 3 Est. Patient 12:31:18 REPEATER CHIEF Jensen Santiago MD [facility] CPT-98975 Level 3 Est. Patient 10:35:02 REPEATER CHIEF Cayetano Skinner MD [facility] CPT-75647 Level 3 Est. Patient 12:50:08 REPEATER CHIEF Cayetano Skinner MD [facility] Procedures Code Procedure Name Date Entry Date Standard Description CPT-87017 Spec Collection and Handling Fee 12:10:42 CDT CPT-PV Prev. Care Visit 12:10:42 CDT CPT-18342 Administration single or combination vaccine inc oral 16:45:52 REPEATER CHIEF CPT-70176 Influenza split virus > age 3 16:45:52 REPEATER CHIEF CPT-34692 Spec Collection and Handling Fee 10:35:02 REPEATER CHIEF
--- OUTSIDE RECORDS SUMMARY | 2019-04-22 11:10 | XMS REPORT | Clinical Summary ---
Author Author Admin, [place] Organization [facility] Address Unknown Phone Unavailable Allergies, Adverse [...] times a day to affected area HYDROCORTISONE 33865437987 Active Cayetano Skinner MD Active ZITHROMAX Z-MARTI 250 MG TABS 2 today, then 1 daily for 4 days AZITHROMYCIN 88842843742 No Longer Active Jensen Santiago MD Active SUBOXONE 8-2 MG SUBL 2 po qd BUPRENORPHINE HCL-NALOXONE HCL 55487808977 Active Jensen Santiago MD Active CETIRIZINE HCL 10 MG TABS ONE DAILY CETIRIZINE HCL 54506084860 No Longer Active Jensen Santiago MD Active KLONOPIN 1 MG TAB 1/2 tab bid CLONAZEPAM 29293806646 No Longer Active Jensen Santiago MD Active ZOLPIDEM TARTRATE 10 MG TABS 1 q hs as needed for sleep ZOLPIDEM TARTRATE 78502194545 No Longer Active Jensen Santiago MD Active CELEXA 40 MG TABS Take one by mouth daily CITALOPRAM HYDROBROMIDE 53236086956 No Longer Active Jensen Santiago MD Active AMOXICILLIN 875 MG TABS 1 tab by mouth twice daily AMOXICILLIN 26679994041 No Longer Active Cayetano Skinner MD Active FLAGYL 500 MG TAB 1 tablet by mouth two times daily METRONIDAZOLE 59029125380 No Longer Active Cayetano Skinner MD Active FLAGYL 500 MG TAB 1 tablet by mouth two times daily METRONIDAZOLE 64017735324 No Longer Active Cayetano Skinner MD Active BUSPIRONE HCL 15 MG TABS 1/2 PO BID BUSPIRONE HCL 19428663335 No Longer Active Cayetano Skinner MD Active BUSPIRONE HCL 15 MG TABS 1/2 PO BID BUSPIRONE HCL 15 MG TABS 186034 BUSPIRONE HCL Inactive CELEXA 40 MG TABS Take one by mouth daily CELEXA 40 MG TABS 238751 CITALOPRAM HYDROBROMIDE Inactive ZOLPIDEM TARTRATE 10 MG TABS 1 q hs as needed for sleep ZOLPIDEM TARTRATE 10 MG TABS 353749 ZOLPIDEM TARTRATE Inactive KLONOPIN 1 MG TAB 1/2 tab bid KLONOPIN 1 MG TAB 109249 CLONAZEPAM Inactive CETIRIZINE HCL 10 MG TABS ONE DAILY CETIRIZINE HCL 10 MG TABS 0666665 CETIRIZINE HCL Inactive FLAGYL 500 MG TAB 1 tablet by mouth two times daily FLAGYL 500 MG TAB 012715 METRONIDAZOLE Inactive FLAGYL 500 MG TAB 1 tablet by mouth two times daily FLAGYL 500 MG TAB 629813 METRONIDAZOLE Inactive AMOXICILLIN 875 MG TABS 1 tab by mouth twice daily AMOXICILLIN 875 MG TABS 643053 AMOXICILLIN Inactive ZITHROMAX Z-MARTI 250 MG TABS 2 today, then 1 daily for 4 days ZITHROMAX Z-MARTI 250 MG TABS 7440194 AZITHROMYCIN Inactive Immunizations Vaccine Administration Date Value Standard Description Seasonal influenza vaccine, injectable, containing preservative, for > 3 years old (Afluria, FluLaval, Fluzone, Fluvirin, Fluarix, Agriflu(>=18 yo)) Fluzone (>3 yrs.) [[id number]] Influenza, seasonal, injectable Vital Signs Date Name [...] ... - Chemistry cholesterol, serum 155 mg/dL 380-497 6754/07/25 triglyceride, serum, fasting 46 mg/dL 30-200 HDL cholesterol, serum 61 mg/dL 32-96 LDL cholesterol, serum 85 mg/dL 0-130 TSH 3.11 m[iU]/mL 0.36-3.74 sodium, serum 139 mmol/L 412-363 9623/07/25 potassium, serum 4.1 mmol/L 3.5-5.2 chloride, serum [...] 229 10^3/MM^3 10*3/mm3 142-424 Lab Report: Chlamydia/GC APTIMA/[id number] - Lab chlamydia DNA probe NOT DETECTED NOT DETECTED Lab Report: Chlamydia/GC APTIMA/[id number] - Microbiology Neisseria gonorrhoeae DNA probe NOT DETECTED NOT DETECTED Encounters Code Encounter Date Provider Facility CPT-70646 Level 3 Est. Patient 12:31:18 INFORMATICS PHYSICIAN LIAISON Jensen Santiago MD [facility] CPT-02672 Level 3 Est. Patient 10:35:02 INFORMATICS PHYSICIAN LIAISON Cayetano Skinner MD [facility] CPT-14157 Level 3 Est. Patient 12:50:08 INFORMATICS PHYSICIAN LIAISON Cayetano Skinner MD [facility] Procedures Code Procedure Name Date Entry Date Standard Description CPT-17435 Spec Collection and Handling Fee 12:10:42 CDT CPT-PV Prev. Care Visit 12:10:42 CDT CPT-66852 Administration single or combination vaccine inc oral 16:45:52 INFORMATICS PHYSICIAN LIAISON CPT-44179 Influenza split virus > age 3 16:45:52 INFORMATICS PHYSICIAN LIAISON CPT-98008 Spec Collection and Handling Fee 10:35:02 INFORMATICS PHYSICIAN LIAISON
--- OUTSIDE RECORDS SUMMARY | 2019-04-22 11:10 | XMS REPORT | Continuity of Care Document ---
Author Organization Unknown Address Unknown Allergies There is no data. Medications There is no data. Problems Date Dx Coded Attending Type Code Diagnosis Diagnosed By 07/14/2017 Kimberly Brown MD L29.9 Pruritus 07/14/2017 Kimberly Brown MD L50.9 Urticaria 07/17/2017 Kimberly Brown MD B19.20 Hepatitis C 10/28/2018 Kimberly Brown MD S80.02xA Contusion of left knee, initial encounter 10/28/2018 Kimberly Brown MD Z68.20 BMI 20-20.9 11/01/2018 Kimberly Brown MD M25.562 Knee pain, left, acute Procedures There is no data. Results There is no data. Encounters ACCT No. Visit Date/Time Discharge Status Pt. Type Provider Facility Loc./Unit Complaint [id number] 02/22/2019 18:57:01 [facility] Unknown Kimberly Brown MD
[2019-04-22] MEDS ORDERED: LORazepam 0.5 MG (ATIVAN) TABLET PO STA (11:36)
[2019-04-22] MEDS ORDERED: LORA-405 PO (11:40)
[2019-04-22 11:50] VITALS: BP 135/100
== END 2019-04-22 11:50 | disposition home or self-care (01) ==
LOC: ER 08:19
DX: F10.20 Alcohol dependence, uncomplicated (principal); E86.1 Hypovolemia; R11.0 Nausea; F32.9 Major depressive disorder, single episode, unspecified; F17.200 Nicotine dependence, unspecified, uncomplicated; Z98.51 Tubal ligation status
CPT/HCPCS: 36415; 80053; 80306; 80320; 81000; 83690; 83735; 84443; 84703; 85025

== ENCOUNTER 2019-12-11 12:26 | Emergency (ER) | payer SELFPAY ==
[~2019-12-11] VITALS: Ht 165 cm; Wt 55.0 kg
[~2019-12-11 12:26] MED LIST: DEXT20TA8; LORA-405 PO; VNL75T
--- NOTE | 2019-12-11 12:42 | NUR ---
AMB TO ROOM REPORTS WANTS DETOX LAST DRANK LAST NIGHT. WHEN ASKED WHY SHE CHOOSE THIS DAY TO WANT DETOX. SHE REPORTS I FEEL LIKE MY BODY IS SHUTTNG DOWN.
[2019-12-11] MEDS ORDERED: LIDOCAINE 2% VISCOUS 15 ML UDC PO ONE (12:45)
[2019-12-11] MEDS ORDERED: ANTACID SUSP 30 ML UDC (MYLANTA) PO ONE (12:45)
[2019-12-11] MEDS ORDERED: LORazepam INJ 2 MG/ML (ATIVAN) VIAL IVP PRN (12:45)
--- NOTE | 2019-12-11 12:49 | ED Psychosocial ---
General Chief Complaint: Substance Abuse Stated Complaint: ETOH ABUSE/CP AND WITHDRAWL Nursing Triage Note: Patient reports drinking 1 liter a day of whiskey for a few weeks. patient reports that she has not drank since last night. patient reports generalized body aches and pain, with the worst being in the epigastric and throat Source: patient Exam Limitations: no limitations History of Present Illness Date Seen by Provider: Dec 11, 2019 Time Seen by Provider: 12:46 Initial Comments To ER by private vehicle accompanied by her boyfriend. Both of them are checking in for request for alcohol detox. Boyfriend was admitted recently for alcoholism, she's been drinking about a liter of [place] deluxe daily. Primary care is Dr. Skinner out of [place]. She reports burning in her upper stomach and chest. Last drink of alcohol was about 2 AM. She feels shaky and "like my organs are shutting down" Timing/Duration: constant Severity: moderate Associated Symptoms: anxiety Allergies and Home Medications Allergies Coded Allergies: No Known Drug Allergies (Unverified , 04/22/19) Home Medications Cefuroxime Axetil 250 Mg Tablet, 250 MG PO BID Prescribed by: ANKITA PAUL on 12/11/19 1329 Lorazepam 1 Mg Tablet, 1 MG PO Q8H PRN for AGITATION Prescribed by: ELIE SHERIFF on 04/22/19 1140 Lorazepam 1 Mg Tablet, 1 MG SL Q6H PRN for ANXIETY Prescribed by: ANKITA PAUL on 12/11/19 1329 Patient Home Medication List Home Medication List Reviewed: Yes Review of Systems Constitutional: see HPI EENTM: see HPI Respiratory: no symptoms reported Cardiovascular: no symptoms reported Genitourinary: no symptoms reported Musculoskeletal: no symptoms reported Skin: no symptoms reported Psychiatric/Neurological: No Symptoms Reported Past Dcbbovd-Rqwyai-Gmwcao Hx Patient Social History Alcohol Use: Regular Use Number of Drinks Today: GG Alcohol Beverage of Choice: Whiskey Recreational Drug Use: No Smoking Status: Current Everyday Smoker Type Used: Cigarettes Recent Foreign Travel: No Contact w/Someone Who Travel: No Recent Infectious Disease Expo: No Recent Hopitalizations: No Past Medical History Surgeries: Yes (REVERSAL OF TUBAL) Tubal Ligation Respiratory: No Cardiac: No Neurological: No Genitourinary: No Gastrointestinal: No Musculoskeletal: No Endocrine: No HEENT: No Cancer: No Psychosocial: Yes (alcoholism) Depression Integumentary: No Physical Exam Vital Signs - First Documented 12/11/19 12:30 Temp 36.8 Pulse 91 Resp 18 B/P (MAP) 163/109 (127) Pulse Ox 98 Capillary Refill : Less Than 3 Seconds Height, Weight, BMI Height: 5'4.00" Weight: 115lbs. oz. 52.712172jq; 20.00 BMI Method:Stated General Appearance: WD/WN, no apparent distress, thin (anxious), other Neck: non-tender, full range of motion Respiratory: no respiratory distress, no accessory muscle use Cardiovascular: no murmur, tachycardia Gastrointestinal: normal bowel sounds, non tender, soft Neurologic/Psychiatric: alert, normal mood/affect, oriented x 3 Appearance/Memory: appropriate appearance, appropriate insight, disheveled Behavior/Eye Contact: cooperative, good eye contact, normal speech Thoughts/Hallucinations: normal thought pattern, no apparent hallucination Skin: normal color, warm/dry Progress/Results/Core Measures Results/Orders Lab Results Laboratory Tests Test 12/11/19 12:42 12/11/19 12:44 Range/Units White Blood Count 5.5 4.3-11.0 10^3/uL Red Blood Count 4.55 4.35-5.85 10^6/uL Hemoglobin 13.3 11.5-16.0 G/DL Hematocrit 40 35-52 % Mean Corpuscular Volume 87 80-99 FL Mean Corpuscular Hemoglobin 29 25-34 PG Mean Corpuscular Hemoglobin Concent 34 32-36 G/DL Red Cell Distribution Width 14.2 10.0-14.5 % Platelet Count 493 H 130-400 10^3/uL Mean Platelet Volume 9.5 7.4-10.4 FL Neutrophils (%) (Auto) 63 42-75 % Lymphocytes (%) (Auto) 26 12-44 % Monocytes (%) (Auto) 10 0-12 % Eosinophils (%) (Auto) 0 0-10 % Basophils (%) (Auto) 1 0-10 % Neutrophils # (Auto) 3.5 1.8-7.8 X 10^3 Lymphocytes # (Auto) 1.4 1.0-4.0 X 10^3 Monocytes # (Auto) 0.5 0.0-1.0 X 10^3 Eosinophils # (Auto) 0.0 0.0-0.3 10^3/uL Basophils # (Auto) 0.0 0.0-0.1 10^3/uL Prothrombin Time 14.2 12.2-14.7 SEC INR Comment 1.1 0.8-1.4 Sodium Level 137 135-145 MMOL/L Potassium Level 4.4 3.6-5.0 MMOL/L Chloride Level 104 98-107 MMOL/L Carbon Dioxide Level 19 L 21-32 MMOL/L Anion Gap 14 5-14 MMOL/L Blood Urea Nitrogen 8 7-18 MG/DL Creatinine 0.71 0.60-1.30 MG/DL Estimat Glomerular Filtration Rate > 60 BUN/Creatinine Ratio 11 Glucose Level 94 70-105 MG/DL Calcium Level 9.3 8.5-10.1 MG/DL Corrected Calcium 8.5-10.1 MG/DL Total Bilirubin 1.0 0.1-1.0 MG/DL Aspartate Amino Transf (AST/SGOT) 21 5-34 U/L Alanine Aminotransferase (ALT/SGPT) 20 0-55 U/L Alkaline Phosphatase 103 40-136 U/L Troponin I < 0.028 <0.028 NG/ML Total Protein 8.0 6.4-8.2 GM/DL Albumin 4.6 H 3.2-4.5 GM/DL Lipase 29 8-78 U/L Serum Test, Qualitative NEGATIVE NEGATIVE Serum Alcohol 34 H <10 MG/DL Urine Color YELLOW Urine Clarity CLEAR Urine pH 7.0 5-9 Urine Specific [place] 1.020 1.016-1.022 Urine Protein NEGATIVE NEGATIVE Urine Glucose (UA) NEGATIVE NEGATIVE Urine Ketones NEGATIVE NEGATIVE Urine Nitrite NEGATIVE NEGATIVE Urine Bilirubin NEGATIVE NEGATIVE Urine Urobilinogen 0.2 < = 1.0 MG/DL Urine Leukocyte Esterase NEGATIVE NEGATIVE Urine RBC (Auto) 1+ H NEGATIVE Urine RBC NONE /HPF Urine WBC 5-10 H /HPF Urine Squamous Epithelial Cells 5-10 /HPF Urine Crystals NONE /LPF Urine Bacteria MODERATE H /HPF Urine Casts NONE /LPF Urine Mucus /LPF Urine Culture Indicated YES Urine Opiates Screen NEGATIVE NEGATIVE Urine Oxycodone Screen NEGATIVE NEGATIVE Urine Methadone Screen NEGATIVE NEGATIVE Urine Propoxyphene Screen NEGATIVE NEGATIVE Urine Barbiturates Screen NEGATIVE NEGATIVE Ur Tricyclic Antidepressants Screen NEGATIVE NEGATIVE Urine Phencyclidine Screen NEGATIVE NEGATIVE Urine Amphetamines Screen NEGATIVE NEGATIVE Urine Methamphetamines Screen NEGATIVE NEGATIVE Urine Benzodiazepines Screen NEGATIVE NEGATIVE Urine Cocaine Screen NEGATIVE NEGATIVE Urine Cannabinoids Screen NEGATIVE NEGATIVE My Orders Orders - ANKITA PAUL APRN Protime With Inr (12/11/19 12:33) Cbc With Automated Diff (12/11/19 12:33) Comprehensive Metabolic Panel (12/11/19 12:33) Alcohol (12/11/19 12:33) Ed Iv/Invasive Line Start (12/11/19 12:33) Antacid Suspension (Mylanta Suspension (12/11/19 12:45) Lidocaine 2% Viscous 15 Ml (Xylocaine Vi (12/11/19 12:45) Ekg Tracing (12/11/19 12:33) Chest 1 View, Ap/Pa Only (12/11/19 12:33) Ua Culture If Indicated (12/11/19 12:35) Hcg,Qualitative Serum (12/11/19 12:35) Drug Screen Stat (Urine) (12/11/19 12:35) Troponin I (12/11/19 12:36) Lorazepam Injection (Ativan Injection) (12/11/19 12:45) Lipase (12/11/19 12:42) Urine Culture (12/11/19 12:44) Ceftriaxone For Iv Use (Rocephin For I (12/11/19 13:30) Clonidine Tablet (Catapres Tablet) (12/11/19 13:45) Medications Given in ED Current Medications Medications Dose Ordered Sig/Nichole Route Start Time Stop Time Status Last Admin Dose Admin Al Hydrox/Mg Hydrox/Simethicone 30 ml ONCE ONCE PO 12/11/19 12:45 12/11/19 12:46 DC 12/11/19 12:59 30 ML Lidocaine HCl 10 ml ONCE ONCE PO 12/11/19 12:45 12/11/19 12:46 DC 12/11/19 12:59 10 ML Lorazepam 1 mg ONCE PRN IVP 12/11/19 12:45 12/11/19 12:57 1 MG Vital Signs/I&O 12/11/19 12:30 Temp 36.8 Pulse 91 Resp 18 B/P (MAP) 163/109 (127) Pulse Ox 98 Blood Pressure Mean: 127 Diagnostic Imaging Diagonstic Imaging: Xray Comments NAME: YOHANA KAY MED REC#: [id number] PT STATUS: REG ER : 1985 PHYSICIAN: ANKITA PAUL APRN ADMIT DATE: 12/11/19/ER Draft Date of Exam:12/11/19 CHEST 1 VIEW, AP/PA ONLY EXAM: CHEST 1 VIEW, AP/PA ONLY INDICATION: Chest pain. COMPARISON: None. FINDINGS: Normal heart size and central pulmonary vascularity. No focal pulmonary opacity, pleural effusion or pneumothorax. No acute osseous findings. IMPRESSION: No acute cardiopulmonary findings. Dictated on workstation # [id number] Dict: 12/11/19 1303 Trans: 12/11/19 1304 TS [id number] Interpreted by: CHARLOTTE YU MD Electronically signed by: Departure Impression Primary Impression: Alcohol abuse Additional Impression: Urinary tract infection Disposition: 01 HOME, SELF-CARE Condition: Stable Departure-Patient Inst. Decision time for Depature: 13:27 Referrals: NO,LOCAL PHYSICIAN (PCP/Family) Primary Care Physician Patient Instructions: ALCOHOL AND SUBSTANCE ABUSE, Urinary Tract Infections in Adults Add. Discharge Instructions: 1. Return to ER for any concerns 2. Follow-up with your doctor next week 3. Use the lorazepam as needed for anxiety control and withdrawal symptoms All discharge instructions reviewed with patient and/or family. Voiced understanding. Scripts Clonidine HCl (Clonidine HCl) 0.1 Mg Tablet 0.1 MG PO BID, #6 TAB Prov: ANKITA PAUL APRN 12/11/19 Lorazepam (Ativan) 1 Mg Tablet 1 MG SL Q6H PRN for ANXIETY for 7 Days, #10 TAB Prov: ANKITA PAUL APRN 12/11/19 Cefuroxime Axetil (Cefuroxime) 250 Mg Tablet 250 MG PO BID, #6 TAB Prov: ANKITA PAUL APRN 12/11/19 ANKITA PAUL APRN Dec 11, 2019 12:48
[2019-12-11 12:51] LABS: BASOPHILS % (AUTO) 1 % (0-10); EOSINOPHILS % (AUTO) 0 % (0-10); HEMATOCRIT 40 % (35-52); HEMOGLOBIN 13.3 G/DL (11.5-16.0); LYMPHOCYTES # (AUTO) 1.4 X 10^3 (1.0-4.0); LYMPHOCYTES % (AUTO) 26 % (12-44); MEAN CORPUSCULAR HEMOGLOBIN 29 PG (25-34); MEAN CORPUSCULAR HGB CONC 34 G/DL (32-36); MEAN CORPUSCULAR VOLUME 87 FL (80-99); MEAN PLATELET VOLUME 9.5 FL (7.4-10.4); MONOCYTES # (AUTO) 0.5 X 10^3 (0.0-1.0); MONOCYTES % (AUTO) 10 % (0-12); NEUTROPHILS # (AUTO) 3.5 X 10^3 (1.8-7.8); NEUTROPHILS % (AUTO) 63 % (42-75); PLATELET COUNT 493 10^3/uL (130-400); RED CELL DISTRIBUTION WIDTH 14.2 % (10.0-14.5); WHITE BLOOD COUNT 5.5 10^3/uL (4.3-11.0)
[2019-12-11 12:52] LABS: BILIRUBIN,URINE NEGATIVE (NEGATIVE); CLARITY,URINE CLEAR; COLOR,URINE YELLOW; GLUCOSE, URINE (UA) NEGATIVE (NEGATIVE); KETONES,URINE NEGATIVE (NEGATIVE); LEUKOCYTE ESTERASE ,URINE NEGATIVE (NEGATIVE); NITRITE,URINE NEGATIVE (NEGATIVE); PROTEIN,URINE NEGATIVE (NEGATIVE)
[2019-12-11 13:01] LABS: INR 1.1 (0.8-1.4); PROTHROMBIN TIME PATIENT 14.2 SEC (12.2-14.7)
--- NOTE | 2019-12-11 13:05 | Diagnostic Imaging Report ---
EXAM: CHEST 1 VIEW, AP/PA ONLY INDICATION: Chest pain. COMPARISON: None. FINDINGS: Normal heart size and central pulmonary vascularity. No focal pulmonary opacity, pleural effusion or pneumothorax. No acute osseous findings. IMPRESSION: No acute cardiopulmonary findings. Dictated by: Dictated on workstation # [id number]
[2019-12-11 13:09] LABS: ALANINE AMINOTRANSFERASE 20 U/L (0-55); ALBUMIN 4.6 GM/DL (3.2-4.5); ALKALINE PHOSPHATASE 103 U/L (40-136); BUN/CREATININE RATIO 11; CALCIUM 9.3 MG/DL (8.5-10.1); CARBON DIOXIDE 19 MMOL/L (21-32); CHLORIDE 104 MMOL/L (98-107); CREATININE SERUM 0.71 MG/DL (0.60-1.30); GFR ESTIMATED > 60; GLUCOSE 94 MG/DL (70-105); LIPASE 29 U/L (8-78); POTASSIUM 4.4 MMOL/L (3.6-5.0); SODIUM 137 MMOL/L (135-145)
[2019-12-11 13:22] LABS: AMPHETAMINE SCREEN, URINE NEGATIVE (NEGATIVE); BARBITURATE SCREEN URINE NEGATIVE (NEGATIVE); BENZODIAZEPINES SCREEN URINE NEGATIVE (NEGATIVE); CANNABINOID SCREEN, URINE NEGATIVE (NEGATIVE); COCAINE SCREEN URINE NEGATIVE (NEGATIVE); METHADONE STAT NEGATIVE (NEGATIVE); METHAMPHETAMINE SCREEN URINE S NEGATIVE (NEGATIVE); OPIATE SCREEN URINE NEGATIVE (NEGATIVE); OXYCODONE STAT NEGATIVE (NEGATIVE); PROPOXYPHENE STAT NEGATIVE (NEGATIVE); TRICYCLIC ANTIDEPRESSANTS SCRE NEGATIVE (NEGATIVE)
[2019-12-11 13:24] LABS: BACTERIA,URINE MODERATE /HPF
[2019-12-11] MEDS ORDERED: CEFU250T80 PO (13:29)
[2019-12-11] MEDS ORDERED: LORA-405 SL (13:29)
[2019-12-11] MEDS ORDERED: cefTRIAXone FOR IV USE 1,000 MG in WATER (STERILE) FOR INJECTION 10 ML IV ONE (13:30)
[2019-12-11] MEDS ORDERED: CLON0.1T PO (13:36)
[2019-12-11] MEDS ORDERED: cloNIDine 0.1 MG (CATAPRES) TAB PO ONE (13:45)
[2019-12-11 13:52] VITALS: BP 152/101
--- OUTSIDE RECORDS SUMMARY | 2019-12-19 12:39 | XMS REPORT | Clinical Summary ---
Author Author Admin, Lavern Lozano Organization [facility] Address Unknown Phone Unavailable Allergies, Adverse Reactions, Alerts Allergy Name Reaction Description Start Date Severity Status Pr ovider No Known Allergies Colleen HUNTA Conditions or Problems Problem Name Problem Code [...] gastrointestinal tract INGUINAL LYMPHADENOPATHY, LEFT 785.6 Resolved 05/23 Cayetano Skinner MD Enlargement of lymph nodes History of ABNORMAL PAP SMEAR V13.29 Inactive Cayetano Skinner MD Personal history of other genital system and obstetric disorders VAGINAL DISCHARGE 623.5 Resolved Cayetano Skinner MD Leukorrhea, not specified as infective Routine gynecological examination V72.31 Active 20 16/02/05 Cayetano Skinner MD Routine gynecological examination Rule out DRUG ABUSE Resolved Cayetano Skinner MD Other, mixed, or unspecified drug abuse, unspecified use PHARYNGITIS 462 Resolved Cayetano Skinner MD Acute pharyngitis Dysuria 788.1 Resolved Cayetano Skinner MD Dysuria Sinusitis, acute 461.9 Resolved Cayetano Skinner MD Acute sinusitis, unspecified Pre-employment exam V70.5 Resolved Cayetano bueno MD Health examination of defined subpopulations U T I-Recurrent Active Kimberly Chakraborty Urinary tract infection, site not specified Depression 311 Active Cayetano Skinner MD Depressive disorder, not elsewhere classified Pruritus 698.9 Resolved Cayetano Skinner MD Unspecified pruritic disorder Urticaria 708.9 Resolved Cayetano Skinner MD Unspecified urticaria Hepatitis C 070.70 Resolved Cayetano Skinner MD Unspecified viral hepatitis C without hepatic coma Muscle spasm of neck 728.85 Inactive 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 Spasm of muscle BMI 20-20.9 Active Alfa Young MD Body Mass Index between 19-24, adult Contusion of left knee, initial encounter 924.11 Inact frank Alfa Young MD Contusion of knee Knee pain, left, acute 719.46 Active Cayetano Galan MD Pain in joint involving lower leg DEPRESSION ICD-311 Inactive Cayetano Skinner MD 01/05 CERVICAL CANCER ICD-V10.41 Inactive Cayetano Chakraborty FH COLON CANCER ICD-V16.0 Inactive Cayetano Skinner MD INGUINAL LYMPHADENOPATHY, LEFT ICD-785.6 Inact frank Cayetano Skinner MD ABNORMAL PAP SMEAR ICD-V13.29 Inactive Cayetano Skinner MD VAGINAL DISCHARGE ICD-623.5 Inactive Cayetano melara MD DRUG ABUSE ICD-305.90 Inactive Cayetano Skinner MD 201 02/06/22 PHARYNGITIS ICD-462 Inactive Cayetano Skinner MD Dysuria ICD-788.1 Inactive Cayetano Skinner MD 2016 Sinusitis, acute ICD-461.9 Inactive Cayetano Galan MD Pre-employment exam ICD-V70.5 Inactive Cayetano Skinner MD Pruritus ICD-698.9 Inactive Cayetano Skinner MD 201 06/13/31 Urticaria ICD-708.9 Inactive Cayetano Skinner MD Hepatitis C ICD-070.70 Inactive Cayetano Skinner MD Muscle spasm of neck ICD-728.85 Inactive Josephine i Yokum 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 ZYRTEC ALLERGY 10 MG ORAL CAPSULE 1 po am CE TIRIZINE HCL 79610675138 No Longer Active Melinda Yokum 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 Active ZANTAC 150 MG ORAL TABLET 1 tab po q am RANITID INE HCL 46176666461 No Longer Active 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 NITROFURANT OIN MONOHYD MACRO CAPS 45371617685 No Longer Active Kimberly Brown MD Acti ve CIPRO 500 MG ORAL TABLET 1 tablet by mouth twice daily CIPROFLOXACIN HCL 95493972811 No Longer Active Cayetano Skinner MD Active MACROBID 100 MG ORAL CAPSULE Take one by mouth daily 2 NITROFURANTOIN MONOHYD MACRO 88668837799 No Longer Active Kimberly Brown MD Active SUBOXONE 8-2 MG SUBL 2 po qd BUPRENORPHINE H CL-NALOXONE HCL 10734120168 No Longer Active Kimberly Brown MD Active HYDROCORTISONE 2.5 % EXTERNAL CREAM Apply three times a day to affected area HYDROCORTISONE 13478167097 No Longer Active Kimberly Brown MD Active AUGMENTIN 500-125 MG ORAL TABLET Take 1 capsule by kaci three times a day X 10 days AMOXICILLIN-POT CLAVULANATE 00219956667 No Longer Active Connie Reyes 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 Active BACTRIM DS 800-160 MG ORAL TABLET 1 tab by mouth twice daily 201 03/10/16 TRIMETHOPRIM-SULFAMETHOXAZOLE 74118379062 No Longer Active Amaris Skinner MD Active ZITHROMAX Z-MARTI 250 MG ORAL TABLET 2 today, then 1 daily for 4 d ays AZITHROMYCIN 69596340067 No Longer Active Jensen Santiago MD Active CETIRIZINE HCL 10 MG ORAL TABLET ONE DAILY CET IRIZINE HCL 62577593671 No Longer Active Jensen Santiago MD Active KLONOPIN 1 MG ORAL TABLET 1/2 tab bid CLONAZEPAM 40600579990 No Longer Active Jensen Santiago MD Active ZOLPIDEM TARTRATE 10 MG ORAL TABLET 1 q hs as needed for sleep ZOLPIDEM TARTRATE 79117234623 No Longer Active Jensen Santiago MD Active CELEXA 40 MG ORAL TABLET Take one by mouth daily 12/11 CITALOPRAM HYDROBROMIDE 43430688179 No Longer Active Jensen Santiago MD Activ e AMOXICILLIN 875 MG ORAL TABLET 1 tab by mouth twice daily 3 AMOXICILLIN 69690762759 No Longer Active Cayetano Skinner MD Activ e FLAGYL 500 MG ORAL TABLET 1 tablet by mouth two times daily 2011 METRONIDAZOLE 44443552227 No Longer Active Cayetano Skinner MD Active FLAGYL 500 MG ORAL TABLET 1 tablet by mouth two times daily 2011 METRONIDAZOLE 01003865217 No Longer Active Cayetano Skinner MD Active BUSPIRONE HCL 15 MG ORAL TABLET 1/2 PO BID BUSP IRONE HCL 77470692870 No Longer Active Cayetano Skinner MD Active BUSPIRONE HCL 15 MG ORAL TABLET 1/2 PO BID 8 BUSPIRONE HCL 15 MG ORAL TABLET 002387 BUSPIRONE HCL Inactive CELEXA 40 MG ORAL TABLET Take one by mouth daily 12/11 CELEXA 40 MG ORAL TABLET 841672 CITALOPRAM HYDROBROMIDE Inactive ZOLPIDEM TARTRATE 10 MG ORAL TABLET 1 q hs as needed for sleep ZOLPIDEM TARTRATE 10 MG ORAL TABLET 891210 ZOLPIDEM TARTRATE Inac tive KLONOPIN 1 MG ORAL TABLET 1/2 tab bid KLONOPIN 1 MG ORAL TABLET 310170 CLONAZEPAM Inactive CETIRIZINE HCL 10 MG ORAL TABLET ONE DAILY CETIRIZINE HCL 10 MG ORAL TABLET 6868274 CETIRIZINE HCL Inactive HYDROCORTISONE 2.5 % EXTERNAL CREAM Apply three times a day to affected area HYDROCORTISONE 2.5 % EXTERNAL CREAM 743954 HYDRO CORTISONE Inactive SUBOXONE 8-2 MG SUBL 2 po qd SUBOXONE 8-2 MG CORNEJO BL BUPRENORPHINE HCL-NALOXONE HCL Inactive CIPRO 500 MG ORAL TABLET 1 tablet by mouth twice daily CIPRO 500 MG ORAL TABLET 818033 CIPROFLOXACIN HCL Inactive MACROBID CAPSULE 1 cap po qd. MACROBID CAPSULE NITROFURANTOIN MONOHYD MACRO CAPS Inactive LUNESTA 1 MG ORAL TABLET 1 po qHS PRN Insomnia LUNESTA 1 MG ORAL TABLET 849645 ESZOPICLONE Inactive ZANTAC 150 MG ORAL TABLET 1 tab po q am Z ANTAC 150 MG ORAL TABLET 712200 RANITIDINE HCL Inactive ZYRTEC ALLERGY 10 MG ORAL CAPSULE 1 po am ZYRTEC ALLERGY 10 MG ORAL CAPSULE CETIRIZINE HCL Inactive PREDNISONE 20 MG ORAL TABLET 2 tabs daily for 4 days, 1 tab daily for 4 days, 1/2 tab daily for 4 days PREDNISONE 20 MG ORAL T ABLET 987389 PREDNISONE Inactive TRAZODONE HCL 100 MG ORAL TABLET 0.5 to 1 po qHS PRN Insomnia TRAZODONE HCL 100 MG ORAL TABLET 252443 TRAZODONE HCL Inactiv e SUBOXONE 8-2 MG SUBLINGUAL FILM 1 1/2 STRIPS QD 07/03 SUBOXONE 8-2 MG SUBLINGUAL FILM 6156276 BUPRENORPHINE HCL-NALOXONE HCL Inacti ve CYCLOBENZAPRINE HCL 10 MG ORAL TABLET Take 1 tablet up to 3 times a day as needed for muscle spasms. CYCLOBENZAPRIN E HCL 10 MG ORAL TABLET 377241 CYCLOBENZAPRINE HCL Inactive FLAGYL 500 MG ORAL TABLET 1 tablet by mouth two times daily 2011 FLAGYL 500 MG ORAL TABLET 679987 METRONIDAZOLE Inacti ve FLAGYL 500 MG ORAL TABLET 1 tablet by mouth two times daily 2011 FLAGYL 500 MG ORAL TABLET 984544 METRONIDAZOLE Inacti ve AMOXICILLIN 875 MG ORAL TABLET 1 tab by mouth twice daily 3 AMOXICILLIN 875 MG ORAL TABLET 122996 AMOXICILLIN Inactive ZITHROMAX Z-MARTI 250 MG ORAL TABLET 2 today, then 1 daily for 4 d ays ZITHROMAX Z-MARTI 250 MG ORAL TABLET 831013 AZITHROMYCIN Inactive BACTRIM DS 800-160 MG ORAL TABLET 1 tab by mouth twice daily 201 03/10/16 BACTRIM DS 800-160 MG ORAL TABLET 556550 TRIMETHOPRIM-SULFAMETHOXAZOLE Inactive AUGMENTIN 500-125 MG ORAL TABLET Take 1 capsule by kaci th three times a day X 10 days AUGMENTIN 500-125 MG ORAL TABLET 909570 AMOXICILLIN- POT CLAVULANATE Inactive MACROBID 100 MG ORAL CAPSULE Take one by mouth daily 2 MACROBID 100 MG ORAL CAPSULE 1160186 NITROFURANTOIN MONOHYD MACRO In active TAMIFLU 75 MG ORAL CAPSULE 1 cap PO bid x 5 days 11/19 TAMIFLU 75 MG ORAL CAPSULE 979193 OSELTAMIVIR PHOSPHATE Inactive Immunizations Vaccine Administration Date Value Standard Jack cription Seasonal influenza vaccine, injectable, containing preservative, for > 3 years old (Afluria, FluLaval, Fluzone, Fluvirin, Fluarix, Agriflu(>= 18 yo)) Fluzone (>3 yrs.) [[id number]] Influenza, seasonal, inject able Vital Signs Date Name Value Unit Range Description blood pressure, diastolic 96 mm[Hg] BP montejo blood pressure, systolic 150 mm[Hg] BP sys height E&M 65 [in_us] Bdy height pulse rate E&M 113 /min Heart rate temperature E&M 98.1 [degF] Body temp erature weight E&M 122.50 [lb_av] Weight Measure d blood pressure, diastolic 90 mm[Hg] BP montejo blood pressure, systolic 130 mm[Hg] BP sys height E&M 65 [in_us] Bdy height pulse rate E&M 138 /min Heart rate temperature E&M 96.7 [degF] Body temp erature weight E&M 125 [lb_av] Weight Measure d Encounters Code Encounter Date Provider Facility CPT-22075 Level 3 Est. Patient 14:42:39 STUNT MAN Cayetano Skinner MD [facility] CPT-54115 Level 3 Est. Patient 20:19:49 STUNT MAN Alfa freed MD [facility] CPT-79072 Level 3 Est. Patient 13:56:06 CDT Melinda avina [facility] CPT-51025 Level 4 Est. Patient 22:21:42 CDT Dorothy cosby [facility] CPT-78863 Level 4 Est. Patient 21:18:20 CDT Dorothy cosby [facility] CPT-88556 Level 3 Est. Patient 10:06:58 CDT Dorothy cosby [facility] CPT-39977 Level 3 Est. Patient 09:36:26 CDT Dorothy cosby [facility] CPT-31160 Level 3 Est. Patient 16:55:26 CDT Cayetano Skinner MD [facility] CPT-55045 Level 2 Est. Patient 11:28:42 CDT Kimberly dietz MD [facility] CPT-84362 Level 3 Est. Patient 15:04:35 CDT Cayetano Skinner MD [facility] CPT-05860 Level 3 Est. Patient 15:07:05 STUNT MAN Cayetano Skinner MD [facility] CPT-80645 Level 3 Est. Patient 09:56:19 CDT Connie Reyes JOY [facility] CPT-63360 Level 3 Est. Patient 12:31:18 STUNT MAN Jensen Santiago MD [facility] CPT-43325 Level 3 Est. Patient 10:35:02 STUNT MAN Cayetano Skinner MD [facility] CPT-48389 Level 3 Est. Patient 12:50:08 STUNT MAN Cayetano Skinner MD [facility] Procedures Code Procedure Name Date Entry Date Standard Desc ription CPT-74905 Abx/Therapy Injection 09:57:17 CDT CPT-J1885 Toradol 30 mg (Ketorolac) 09:49:34 CDT 2017 CPT-12572 Venipuncture Draw Fee 10:10:37 CDT CPT-04915 [facility] - [facility] 10:06:58 CDT CPT-58659 Bladder Scan 19:49:06 STUNT MAN CPT-42295 Spec Collection and Handling Fee 11:57:40 C DT CPT-J1020 Depo Medrol 60 mg (Methyl Prednisolone A cetate) 12:03:49 CDT CPT-96618 Abx/Therapy Injection 12:03:48 CDT CPT-J1020 Depo Medrol 60 mg (Methyl Prednisolone A cetate) 09:56:19 CDT CPT-43058 Spec Collection and Handling Fee 12:10:42 C DT CPT-PV Prev. Care Visit 12:10:42 CDT CPT-13517 Administration single or combination vac cine inc oral 16:45:52 STUNT MAN CPT-95173 Influenza split virus > age 3 16:45:52 STUNT MAN CPT-82227 Spec Collection and Handling Fee 10:35:[address]
--- OUTSIDE RECORDS SUMMARY | 2019-12-19 12:48 | XMS REPORT | Continuity of Care Document ---
Author Organization Unknown Address Unknown Phone Unavailable Allergies Active Description Code Type Severity Reaction Onset Reported/Identified Relationship to Patient Clinical Status Yes No Known Drug Allergies [id number] Drug Allergy Unknown N/A 04/22/2019 Medications There is no data. Problems Date Dx Coded Attending Type Code Diagnosis Diagnosed By 07/14/2017 Kimberly Brown MD L2 9.9 Pruritus 07/14/2017 Kimberly Brown MD L5 0.9 Urticaria 07/17/2017 Kimberly Brown MD B19.20 Hepatitis C 10/28/2018 Kimberly Brown MD S80.02xA Contusion of left knee, initial encounter 10/28/2018 Kimberly Brown MD Z68.20 BMI 20-20.9 11/01/2018 Kevin MAGALLON, Kimberly Cooney M25.562 Knee pain, left, acute 04/22/2019 ELIE NAGEL MD Ot E86.1 HYPOVOLEMIA 04/22/2019 SHONA MAGALLON, ELIE Beverly Ot F10.129 ALCOHOL ABUSE WITH INTOXICATION, UNSPECI 04/22/2019 ELIE NAGEL MD T Ot F10.20 ALCOHOL DEPENDENCE, UNCOMPLICATED 04/22/2019 ELIE NAGEL MD Ot F17.200 NICOTINE DEPENDENCE, UNSPECIFIED, UNCOMP 04/22/2019 ELIE NAGEL MD Ot F32.9 MAJOR DEPRESSIVE DISORDER, SINGLE EPISOD 04/22/2019 ELIE NAGEL MD Ot R11.0 NAUSEA 04/22/2019 ELIE NAGEL MD Ot Z98.51 TUBAL LIGATION STATUS 04/25/2019 ELIE NAGEL MD T Ot E86.1 HYPOVOLEMIA 04/25/2019 ELIE NAGEL MD Ot F10.129 ALCOHOL ABUSE WITH INTOXICATION, UNSPECI 04/25/2019 ELIE NAGEL MD T Ot F10.20 ALCOHOL DEPENDENCE, UNCOMPLICATED 04/25/2019 MENDEL NAGEL MDSHUA T Ot F17.200 NICOTINE DEPENDENCE, UNSPECIFIED, UNCOMP 04/25/2019 SHONA MAGALLON, ELIE Beverly Ot F32.9 MAJOR DEPRESSIVE DISORDER, SINGLE EPISOD 04/25/2019 SHONA MAGALLON, ELIE T Ot R11.0 NAUSEA 04/25/2019 ELIE NAGEL MD T Ot Z98.51 TUBAL LIGATION STATUS 06/14/2019 SHONA MAGALLON, ELIE T Ot E86.1 HYPOVOLEMIA 06/14/2019 SHONA MAGALLON, ELIE T Ot F10.129 ALCOHOL ABUSE WITH INTOXICATION, UNSPECI 06/14/2019 ELIE NAGEL MD Ot F10.20 ALCOHOL DEPENDENCE, UNCOMPLICATED 06/14/2019 SHONA MAGALLON, ELIE T Ot F17.200 NICOTINE DEPENDENCE, UNSPECIFIED, UNCOMP 06/14/2019 ELIE NAGEL MD Ot F32.9 MAJOR DEPRESSIVE DISORDER, SINGLE EPISOD 06/14/2019 ELIE NAGEL MD T Ot R11.0 NAUSEA 06/14/2019 SHONA MAGALLON, ELIE Beverly Ot Z98.51 TUBAL LIGATION STATUS 11/19/2019 SHONA MAGALLON, ELIE Beverly Ot E86.1 HYPOVOLEMIA 11/19/2019 SHONA MAGALLON, ELIE T Ot F10.129 ALCOHOL ABUSE WITH INTOXICATION, UNSPECI 11/19/2019 ELIE NAGEL MD T Ot F10.20 ALCOHOL DEPENDENCE, UNCOMPLICATED 11/19/2019 SHONA MAGALLON, ELIE T Ot F17.200 NICOTINE DEPENDENCE, UNSPECIFIED, UNCOMP 11/19/2019 SHONA MAGALLON, ELIE Beverly Ot F32.9 MAJOR DEPRESSIVE DISORDER, SINGLE EPISOD 11/19/2019 ELIE NAGEL MD T Ot R11.0 NAUSEA 11/19/2019 ELIE NAGEL MD T Ot Z98.51 TUBAL LIGATION STATUS Procedures There is no data. Results Test Result Range Complete blood count (CBC) with automate d white blood cell (WBC) differential - 04/22/19 08:50 Blood leukocytes automated count (number/volume) 5.0 10*3/uL 4.3-11.0 Blood erythrocytes automated count (number/volume) 4.34 10*6/uL 4.35-5.85 Venous blood hemoglobin measurement (mass/volume) 13.4 g/dL 11.5-16.0 Blood hematocrit (volume fraction) 40 % 35-52 Automated erythrocyte mean corpuscular volume 91 [ foz_us] 80-99 Automated erythrocyte mean corpuscular h emoglobin (mass per erythrocyte) 31 pg 25-34 Automated erythrocyte mean corpuscular h emoglobin concentration measurement (mass/volume) 34 g/dL 32-36 Automated erythrocyte distribution width ratio 14. 9 % 10.0- 14.5 Automated blood platelet count (count/volume) 356 10*3/uL 130-400 Automated blood platelet mean volume measurement 9.7 [foz_us] 7.4-10.4 Automated blood neutrophils/100 leukocytes 64 % 42-75 Automated blood lymphocytes/100 leukocytes 27 % 12-44 Blood monocytes/100 leukocytes 9 % 0-12 Automated blood eosinophils/100 leukocytes 0 % 0-10 Automated blood basophils/100 leukocytes 0 % 0-10 Blood neutrophils automated count (number/volume) 3.2 10*3 1.8-7.8 Blood lymphocytes automated count (number/volume) 1.3 10*3 1.0-4.0 Blood monocytes automated count (number/volume) 0. 5 10*3 0.0-1.0 Automated eosinophil count 0.0 10*3/uL 0 .0-0.3 Automated blood basophil count (count/volume) 0.0 10*3/uL 0.0-0.1 Comprehensive metabolic panel - 04/22/19 08:50 Serum or plasma sodium measurement (moles/volume) 141 mmol/L 135-145 Serum or plasma potassium measurement (moles/volume) 3.8 mmol/L 3.6-5.0 Serum or plasma chloride measurement (moles/volume) 103 mmol/L 98-107 Carbon dioxide 20 mmol/L 21-32 Serum or plasma anion gap determination (moles/volume) 18 mmol/L 5-14 Serum or plasma urea nitrogen measurement (mass/volume ) 6 mg/dL 7-18 Serum or plasma creatinine measurement (mass/volume) 0.77 mg/dL 0.60-1.30 Serum or plasma urea nitrogen/creatinine mass ratio 8 NRG Serum or plasma creatinine measurement w ith calculation of estimated glomerular filtration rate > NRG Serum or plasma glucose measurement (mass/volume) 99 mg/dL 70-105 Serum or plasma calcium measurement (mass/volume) 9.1 mg/dL 8.5-10.1 Serum or plasma total bilirubin measurement (mass/volu me) 0.4 mg/dL 0.1-1.0 Serum or plasma alkaline phosphatase maria guadalupe surement (enzymatic activity/volume) 129 U/L 40-136 Serum or plasma aspartate aminotransfera se measurement (enzymatic activity/volume) 74 U/L 5-34 Serum or plasma alanine aminotransferase measurement (enzymatic activity/volume) 27 U/L 0-55 Serum or plasma protein measurement (mass/volume) 8.1 g/dL 6.4-8.2 Serum or plasma albumin measurement (mass/volume) 4.4 g/dL 3.2-4.5 CALCIUM CORRECTED 8.8 mg/dL 8.5-10.1 Magnesium - 04/22/19 08:50 Magnesium 2.2 mg/dL 1.8-2.4 Lipase - 04/22/19 08:50 Lipase 26 U/L 8-78 Serum or plasma choriogonadotropin (preg levy test) detection - 04/22/19 08:50 Serum or plasma choriogonadotropin ( test) de tection NEGATIVE NEGATIVE Serum or plasma thyrotropin measurement by detection limit <=0.05 miu/l (units/volume) - 04/22/19 08:50 Serum or plasma thyrotropin measurement by detection limit <=0.05 miu/l (units/volume) 1.19 u[iU]/mL 0.35-4.94 Serum or plasma ethanol measurement (mas s/volume) - 04/22/19 08:50 Serum or plasma ethanol measurement (mass/volume) 190 mg/dL <10 Complete blood count (CBC) with automate d white blood cell (WBC) differential - 12/11/19 12:42 Blood leukocytes automated count (number/volume) 5.5 10*3/uL 4.3-11.0 Blood erythrocytes automated count (number/volume) 4.55 10*6/uL 4.35-5.85 Venous blood hemoglobin measurement (mass/volume) 13.3 g/dL 11.5-16.0 Blood hematocrit (volume fraction) 40 % 35-52 Automated erythrocyte mean corpuscular volume 87 [ foz_us] 80-99 Automated erythrocyte mean corpuscular h emoglobin (mass per erythrocyte) 29 pg 25-34 Automated erythrocyte mean corpuscular h emoglobin concentration measurement (mass/volume) 34 g/dL 32-36 Automated erythrocyte distribution width ratio 14. 2 % 10.0- 14.5 Automated blood platelet count (count/volume) 493 10*3/uL 130-400 Automated blood platelet mean volume measurement 9.5 [foz_us] 7.4-10.4 Automated blood neutrophils/100 leukocytes 63 % 42-75 Automated blood lymphocytes/100 leukocytes 26 % 12-44 Blood monocytes/100 leukocytes 10 % 0-12 Automated blood eosinophils/100 leukocytes 0 % 0-10 Automated blood basophils/100 leukocytes 1 % 0-10 Blood neutrophils automated count (number/volume) 3.5 10*3 1.8-7.8 Blood lymphocytes automated count (number/volume) 1.4 10*3 1.0-4.0 Blood monocytes automated count (number/volume) 0. 5 10*3 0.0-1.0 Automated eosinophil count 0.0 10*3/uL 0 .0-0.3 Automated blood basophil count (count/volume) 0.0 10*3/uL 0.0-0.1 PT panel in platelet poor plasma by coag ulation assay - 12/11/19 12:42 Prothrombin time (PT) in platelet poor plasma by coagu lation assay 14.2 s 12.2-14.7 INR in platelet poor plasma or blood by coagulation as say 1.1 0.8-1.4 Comprehensive metabolic panel - 12/11/19 12:42 Serum or plasma sodium measurement (moles/volume) 137 mmol/L 135-145 Serum or plasma potassium measurement (moles/volume) 4.4 mmol/L 3.6-5.0 Serum or plasma chloride measurement (moles/volume) 104 mmol/L 98-107 Carbon dioxide 19 mmol/L 21-32 Serum or plasma anion gap determination (moles/volume) 14 mmol/L 5-14 Serum or plasma urea nitrogen measurement (mass/volume ) 8 mg/dL 7-18 Serum or plasma creatinine measurement (mass/volume) 0.71 mg/dL 0.60-1.30 Serum or plasma urea nitrogen/creatinine mass ratio 11 NRG Serum or plasma creatinine measurement w ith calculation of estimated glomerular filtration rate > NRG Serum or plasma glucose measurement (mass/volume) 94 mg/dL 70-105 Serum or plasma calcium measurement (mass/volume) 9.3 mg/dL 8.5-10.1 Serum or plasma total bilirubin measurement (mass/volu me) 1.0 mg/dL 0.1-1.0 Serum or plasma alkaline phosphatase maria guadalupe surement (enzymatic activity/volume) 103 U/L 40-136 Serum or plasma aspartate aminotransfera se measurement (enzymatic activity/volume) 21 U/L 5-34 Serum or plasma alanine aminotransferase measurement (enzymatic activity/volume) 20 U/L 0-55 Serum or plasma protein measurement (mass/volume) 8.0 g/dL 6.4-8.2 Serum or plasma albumin measurement (mass/volume) 4.6 g/dL 3.2-4.5 Serum or plasma troponin i.cardiac measu rement (mass/volume) - 12/11/19 12:42 Serum or plasma troponin i.cardiac measurement (mass/v olume) < ng/mL <0.028 Lipase - 12/11/19 12:42 Lipase 29 U/L 8-78 Serum or plasma choriogonadotropin (preg levy test) detection - 12/11/19 12:42 Serum or plasma choriogonadotropin ( test) de tection NEGATIVE NEGATIVE Serum or plasma ethanol measurement (mas s/volume) - 12/11/19 12:42 Serum or plasma ethanol measurement (mass/volume) 34 mg/dL <10 Urine drug screening test - 12/11/19 12: 44 Urine phencyclidine detection by screening method NEGATIVE NEGATIVE Urine benzodiazepines detection by screening method NEGATIVE NEGATIVE Urine cocaine detection NEGATIVE NEGATI VE Urine amphetamines detection by screening method N EGATIVE NEGATIVE Urine methamphetamine detection by screening method NEGATIVE NEGATIVE Urine cannabinoids detection by screening method N EGATIVE NEGATIVE Urine opiates detection by screening method NEGATI VE NEGATIVE Urine barbiturates detection NEGATIVE N EGATIVE Screening urine tricyclic antidepressants detection NEGATIVE NEGATIVE Urine methadone detection by screening method NEGA TIVE NEGATIVE Urine oxycodone detection NEGATIVE NEGA TIVE Urine propoxyphene detection NEGATIVE N EGATIVE Complete urinalysis with reflex to cultu re - 12/11/19 12:44 Urine color determination YELLOW NRG Urine clarity determination CLEAR NR G Urine pH measurement by test strip 7.0 5-9 Specific gravity of urine by test strip 1.020 1.016-1.022 Urine protein assay by test strip, semi-quantitative NEGATIVE NEGATIVE Urine glucose detection by automated test strip NE GATIVE NEGATIVE Erythrocytes detection in urine sediment by light micr oscopy 1+ NEGATIVE Urine ketones detection by automated test strip NE GATIVE NEGATIVE Urine nitrite detection by test strip NEGATIVE NEGATIVE Urine total bilirubin detection by test strip NEGA TIVE NEGATIVE Urine urobilinogen measurement by automated test strip (mass/volume) 0.2 mg/dL < = 1.0 Urine leukocyte esterase detection by dipstick NEG ATIVE NEGATIVE Automated urine sediment erythrocyte cou nt by microscopy (number/high power field) NONE NRG Automated urine sediment leukocyte count by microscopy (number/high power field) [HPF] NRG Bacteria detection in urine sediment by light microsco py MODERATE NRG Squamous epithelial cells detection in u rine sediment by light microscopy 5-10 NRG Crystals detection in urine sediment by light microsco py NONE NRG Casts detection in urine sediment by light microscopy NONE NRG Complete urinalysis with reflex to culture YES NRG Bacterial urine culture - 12/11/19 12:44 Bacterial urine culture [id number] NRG COLONY COUNT 80,000 CFU/ML NRG FTX;REPORTABLE SUSCEPTIBILITY REPORTED 12/13 09:35 NRG Dirithromycin susceptibility test by dis k diffusion - 12/11/19 12:44 Gentamicin susceptibility test by minimum inhibitory c oncentration <= NRG Trimethoprim/sulfamethoxazole susceptibi lity test by minimum inhibitoryconcentration <= NRG Levofloxacin susceptibility test by minimum inhibitory concentration <= NRG Ampicillin susceptibility test by minimum inhibitory c oncentration > NRG Cefazolin susceptibility test by minimum inhibitory co ncentration 2 NRG Ceftriaxone susceptibility test by minimum inhibitory concentration <= NRG Ciprofloxacin susceptibility test by minimum inhibitor y concentration <= NRG Meropenem susceptibility test by minimum inhibitory co ncentration <= NRG Nitrofurantoin susceptibility test by mi nimum inhibitory concentration <= NRG Amoxicillin and clavulanate potassium susc VENANCIO = NRG Encounters ACCT No. Visit Date/Time Discharge Status Pt. Type Provider Facility Loc./Unit Complaint [id number] 10/05/2019 15:46:01 ACT Unknown Kimberly Brown MD [id number] 12/11/2019 12:26:00 02/09/2 020 13:52:00 DIS Emergency PAUL, PETER J [employer] [facility] ER ETOH ABUSE/CP AND WITHD RAWL [id number] 04/22/2019 08:19:00 019 11:50:00 DIS Emergency SHONA MAGALLON, ELIE Beverly [facility] ER INTOXICATED, VO MITTING
== END 2019-12-11 13:52 | disposition home or self-care (01) ==
LOC: ER 12:26 → EDUNIT# 12:26 → ER 13:52
DX: F10.10 Alcohol abuse, uncomplicated (principal); N39.0 Urinary tract infection, site not specified; F17.210 Nicotine dependence, cigarettes, uncomplicated; Y90.1 Blood alcohol level of 20-39 mg/100 ml
CPT/HCPCS: 36415; 71045; 80053; 80306; 80320; 81000; 83690; 84484; 84703; 85025; 85610; 87077; 87088; 87186; 93005; 96374; 96375